=== PATIENT | male | born 1965 ===

== ENCOUNTER 2016-10-04 20:42 | Inpatient (IN) | payer OTHER ==
[2016-10-04 20:48] VITALS: BMI 29.2
[2016-10-04] MEDS ORDERED: Albuterol 0.083% Inhal Sol (2.5 mg/3 mL) UD INH PRN (21:09)
[2016-10-04] MEDS ORDERED: Aztreonam 2 Gm Inj IVPB SCH (21:15)
[2016-10-04 21:24] VITALS: RESP 20
[2016-10-04] MEDS: Aztreonam 2 GM in Sodium Chloride 0.9% 100 ML IVPB SCH (22:17)
[2016-10-05] MEDS: Oxycodone/Acetaminophen 5/325 mg Tab PO PRN ×2 (05:36→20:29)
[2016-10-05] MEDS: Aztreonam 2 GM in Sodium Chloride 0.9% 100 ML IVPB SCH ×3 (05:56→20:30)
[2016-10-05] MEDS: Enoxaparin 40 mg Syringe SC SCH (08:49)
[2016-10-05] MEDS: Lactobacillus Acidophilus 500 MU Cap PO SCH ×2 (08:49→17:47)
--- NOTE | 2016-10-05 11:50 | CP.PCM.HP ---
History of Present Illness - History of Present Illness History of Present Illness: Patient with hx of seizure, MS, debility, uti. For snf care Present on Admission - Present on Admission Any Indicators Present on Admission: Yes Decubitus Ulcer Stage: I Review of Systems - Constitutional Constitutional: As Per HPI - EENT Eyes: As Per HPI - Cardiovascular Cardiovascular: As Per HPI - Respiratory Respiratory: As Per HPI - Gastrointestinal Gastrointestinal: As Per HPI - Musculoskeletal Musculoskeletal: As Per HPI - Integumentary Integumentary: As Per HPI - Neurological Neurological: As Per HPI - Psychiatric Psychiatric: As Per HPI Past Patient History - Infectious Disease Hx of Infectious Diseases: None - Tetanus Immunizations Tetanus Immunization: Unknown - Past Medical History & Family History Past Medical History?: Yes - Past Social History Smoking Status: Never Smoked - CARDIAC Hx Peripheral Edema: Yes (bl le swelling no longer) - PULMONARY Hx Chronic Obstructive Pulmonary Disease (COPD): Yes Hx Pneumonia: Yes - NEUROLOGICAL Hx Dementia: Yes Hx Multiple Sclerosis: Yes Hx Seizures: Yes - HEENT Hx HEENT Problems: Yes (poor vision left eye) - RENAL Hx Kidney Stones: Yes - ENDOCRINE/METABOLIC Hx Endocrine Disorders: No - HEMATOLOGICAL/ONCOLOGICAL Hx Anemia: Yes - INTEGUMENTARY Hx Dermatological Problems: No - MUSCULOSKELETAL/RHEUMATOLOGICAL Hx Arthritis: Yes Hx Falls: No - GASTROINTESTINAL Hx Gastrointestinal Disorders: Yes (constipation) - GENITOURINARY/GYNECOLOGICAL Hx Genitourinary Disorders: Yes (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) Hx Incontinence: Yes Hx Prostate Problems: Yes Hx Urinary Tract Infection: Yes - PSYCHIATRIC Hx Anxiety: Yes Hx Depression: Yes Hx Substance Use: No - SURGICAL HISTORY Hx Surgeries: Yes Other/Comment: cysto with removal of stent 05/19/16 - ANESTHESIA Hx Anesthesia: Yes Hx Anesthesia Reactions: No Hx Malignant Hyperthermia: No Meds Allergies/Adverse Reactions: Allergies Allergy/AdvReac Type Severity Reaction Status Date / Time cefazolin AdvReac RASH, Verified 10/01/16 18:21 ITCHINESS Physical Exam - Constitutional Appears: Confused, Chronically Ill - Head Exam Head Exam: ATRAUMATIC, NORMAL INSPECTION - Eye Exam Eye Exam: Normal appearance - Neck Exam Neck exam: Positive for: Full Rom - Cardiovascular Exam Cardiovascular Exam: REGULAR RHYTHM, +S1, +S2 - GI/Abdominal Exam GI & Abdominal Exam: Normal Bowel Sounds - Extremities Exam Extremities exam: Positive for: normal inspection - Neurological Exam Neurological exam: Alert, Oriented x3 Additional comments: No new deficit Results - Vital Signs Recent Vital Signs: Last Vital Signs Temp 97.9 F 10/05/16 09:03 Pulse 73 10/05/16 09:03 Resp 20 10/05/16 09:03 BP 108/65 10/05/16 09:03 Pulse Ox 96 10/05/16 09:03 Assessment & Plan (1) Severe back pain Status: Chronic Priority: High (2) Anxiety Status: Chronic Priority: Medium (3) Seizure disorder Status: Acute Priority: Medium (4) Multiple sclerosis, primary progressive Status: Chronic (5) UTI (lower urinary tract infection) Status: Acute (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
[2016-10-05] MEDS ORDERED: Magnesium Hydroxide Susp 30 ml UD PO ONE (17:00)
[2016-10-06] MEDS: Aztreonam 2 GM in Sodium Chloride 0.9% 100 ML IVPB SCH ×3 (05:22→20:33)
[2016-10-06 07:43] LABS: HEMATOCRIT 37.8 % (35.0-51.0); MEAN CORPUSCULAR HEMOGLOBIN 26.3 pg (27.0-31.0); MEAN CORPUSCULAR HGB CONC 31.7 g/dL (33.0-37.0); RED CELL DISTRIBUTION WIDTH 18.4 % (11.5-14.5); WHITE BLOOD COUNT 11.4 K/uL (4.8-10.8)
[2016-10-06 08:03] LABS: BLOOD UREA NITROGEN 18 mg/dl (9-20); CALCIUM 9.4 mg/dL (8.4-10.2); CARBON DIOXIDE 27 mmol/L (22-30); CHLORIDE 104 mmol/L (98-107); GFR AFRICAN-AMERICAN > 60; GLUCOSE,RANDOM 81 mg/dL (75-110); POTASSIUM 4.3 MMOL/L (3.6-5.0); SODIUM 142 mmol/l (132-148)
[2016-10-06] MEDS: Lactobacillus Acidophilus 500 MU Cap PO SCH ×2 (08:53→17:30)
[2016-10-06] MEDS: Enoxaparin 40 mg Syringe SC SCH (08:55)
--- NOTE | 2016-10-06 12:47 | CP.PCM.PN ---
Subjective - Date & Time of Evaluation Date of Evaluation: 10/06/16 Time of Evaluation: 12:47 - Subjective Subjective: Comfortable not in distress Objective - Vital Signs/Intake and Output Vital Signs (last 24 hours): Temp Pulse Resp BP Pulse Ox 98.2 F 91 H 20 105/74 93 L 10/06/16 08:33 10/06/16 08:33 10/06/16 08:33 10/06/16 08:33 10/06/16 08:33 - Medications Medications: Current Medications Albuterol Sulfate (Albuterol 0.083% Inhal Jennifer (2.5 Mg/3 Ml) Ud) 2.5 mg INH RQ6 PRN PRN Reason: Shortness of Breath Baclofen (Lioresal) 20 mg PO TID [facility] Last Admin: 10/06/16 08:54 Dose: 20 mg Enoxaparin Sodium (Lovenox) 40 mg SC DAILY [facility] PRN Reason: Protocol Last Admin: 10/06/16 08:55 Dose: 40 mg Famotidine (Pepcid) 20 mg PO BID [facility] Last Admin: 10/06/16 08:55 Dose: 20 mg Fentanyl (Duragesic) 1 patch TD Q72 [facility] PRN Reason: Protocol Last Admin: 10/04/16 21:55 Dose: 1 patch Home Med (Dimethyl Fumarate [Tecfidera]) 240 mg PO BID [facility] Last Admin: 10/06/16 08:53 Dose: 240 mg Aztreonam 2 gm/ Sodium (Chloride) 100 mls @ 100 mls/hr IVPB Q8H [facility] Last Admin: 10/06/16 05:22 Dose: 100 mls/hr Lactobacillus Acidophilus (Bacid Acidophilus) 1 cap PO BID [facility] Last Admin: 10/06/16 08:53 Dose: 1 cap Lamotrigine (Lamictal) 200 mg PO BID [facility] Last Admin: 10/06/16 08:54 Dose: 200 mg Levetiracetam (Keppra) 1,000 mg PO TID [facility] Last Admin: 10/06/16 08:54 Dose: 1,000 mg Oxycodone/Acetaminophen (Percocet 5/325 Mg Tab) 1 tab PO Q6 PRN PRN Reason: Pain, Mild (1-3) Stop: 10/07/16 21:10 Last Admin: 10/05/16 20:29 Dose: 1 tab Tamsulosin HCl (Flomax) 0.4 mg PO DAILY [facility] Last Admin: 10/06/16 08:53 Dose: 0.4 mg - Labs Labs: 10/06/16 07:27 10/06/16 07:27 - Constitutional Appears: Chronically Ill - Head Exam Head Exam: ATRAUMATIC, NORMAL INSPECTION, NORMOCEPHALIC - Eye Exam Eye Exam: Normal appearance - Neck Exam Neck Exam: Full ROM - Cardiovascular Exam Cardiovascular Exam: REGULAR RHYTHM, +S1, +S2 - Neurological Exam Neurological Exam: Alert, Awake Additional comments: No new deficit. 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
[2016-10-06] MEDS: Oxycodone/Acetaminophen 5/325 mg Tab PO PRN (13:24)
--- NOTE | 2016-10-06 16:56 | CP.PCM.CON ---
History of Present Illness - History of Present Illness History of Present Illness: 51 year old male patient with PMHx of seizure, MS, UTI was seen at bedside this afternoon concerning dystrophic, elongated, mycotic toenails x10. Patient states that elongated nails bother him when he walks, generating pain. Patient states that the toenails are very brittle and bleeds when damaged. Patient denies of any other pedal problems. Patient denies of any N/V/F/C or SOB Past Patient History - Infectious Disease Hx of Infectious Diseases: None - Tetanus Immunizations Tetanus Immunization: Unknown - Past Medical History & Family History Past Medical History?: Yes - Past Social History Smoking Status: Never Smoked - CARDIAC Hx Peripheral Edema: Yes (bl le swelling no longer) - PULMONARY Hx Chronic Obstructive Pulmonary Disease (COPD): Yes Hx Pneumonia: Yes - NEUROLOGICAL Hx Dementia: Yes Hx Multiple Sclerosis: Yes Hx Seizures: Yes - HEENT Hx HEENT Problems: Yes (poor vision left eye) - RENAL Hx Kidney Stones: Yes - ENDOCRINE/METABOLIC Hx Endocrine Disorders: No - HEMATOLOGICAL/ONCOLOGICAL Hx Anemia: Yes - INTEGUMENTARY Hx Dermatological Problems: No - MUSCULOSKELETAL/RHEUMATOLOGICAL Hx Arthritis: Yes Hx Falls: No - GASTROINTESTINAL Hx Gastrointestinal Disorders: Yes (constipation) - GENITOURINARY/GYNECOLOGICAL Hx Genitourinary Disorders: Yes (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) Hx Incontinence: Yes Hx Prostate Problems: Yes Hx Urinary Tract Infection: Yes - PSYCHIATRIC Hx Anxiety: Yes Hx Depression: Yes Hx Substance Use: No - SURGICAL HISTORY Hx Surgeries: Yes Other/Comment: cysto with removal of stent 05/19/16 - ANESTHESIA Hx Anesthesia: Yes Hx Anesthesia Reactions: No Hx Malignant Hyperthermia: No Meds Allergies/Adverse Reactions: Allergies Allergy/AdvReac Type Severity Reaction Status Date / Time cefazolin AdvReac RASH, Verified 10/01/16 18:21 ITCHINESS - Medications Medications: Current Medications Albuterol Sulfate (Albuterol 0.083% Inhal Jennifer (2.5 Mg/3 Ml) Ud) 2.5 mg INH RQ6 PRN PRN Reason: Shortness of Breath Baclofen (Lioresal) 20 mg PO TID [facility] Last Admin: 10/06/16 13:19 Dose: 20 mg Enoxaparin Sodium (Lovenox) 40 mg SC DAILY [facility] PRN Reason: Protocol Last Admin: 10/06/16 08:55 Dose: 40 mg Famotidine (Pepcid) 20 mg PO BID [facility] Last Admin: 10/06/16 08:55 Dose: 20 mg Fentanyl (Duragesic) 1 patch TD Q72 [facility] PRN Reason: Protocol Last Admin: 10/04/16 21:55 Dose: 1 patch Home Med (Dimethyl Fumarate [Tecfidera]) 240 mg PO BID [facility] Last Admin: 10/06/16 08:53 Dose: 240 mg Aztreonam 2 gm/ Sodium (Chloride) 100 mls @ 100 mls/hr IVPB Q8H [facility] Last Admin: 10/06/16 13:19 Dose: 100 mls/hr Lactobacillus Acidophilus (Bacid Acidophilus) 1 cap PO BID [facility] Last Admin: 10/06/16 08:53 Dose: 1 cap Lamotrigine (Lamictal) 200 mg PO BID [facility] Last Admin: 10/06/16 08:54 Dose: 200 mg Levetiracetam (Keppra) 1,000 mg PO TID [facility] Last Admin: 10/06/16 13:19 Dose: 1,000 mg Oxycodone/Acetaminophen (Percocet 5/325 Mg Tab) 1 tab PO Q6 PRN PRN Reason: Pain, Mild (1-3) Stop: 10/07/16 21:10 Last Admin: 10/06/16 13:24 Dose: 1 tab Tamsulosin HCl (Flomax) 0.4 mg PO DAILY [facility] Last Admin: 10/06/16 08:53 Dose: 0.4 mg Physical Exam - Constitutional Appears: Well, Non-toxic, No Acute Distress - Extremities Exam Additional comments: Bilateral extremity exam DERM: Dystrophic, elongated, mycotic toenails noted to all digits bilaterally. No erythema noted. No sign of acute infection is noted. No drainage, No interdigital maceration noted. No open wound noted. VASC: Non-palpable DP and PT noted b/l. [employer] less than 3 seconds to all digits noted NEURO: Protective sensation intact ORTHO: Pain on palpation to all digits bilaterally - Neurological Exam Neurological exam: Alert, Oriented x3 - Psychiatric Exam Psychiatric exam: Normal Affect, Normal Mood - Skin Skin Exam: Normal Color, Warm Results - Vital Signs Recent Vital Signs: Last Vital Signs Temp 97.9 F 10/06/16 16:17 Pulse 74 10/06/16 16:17 Resp 20 10/06/16 16:17 BP 101/50 L 10/06/16 16:17 Pulse Ox 98 10/06/16 16:17 - Labs Result Diagrams: 10/06/16 07:27 10/06/16 07:27 Labs: Laboratory Results - last 24 hr 10/06/16 07:27 WBC 11.4 H RBC 4.56 Hgb 12.0 Hct 37.8 MCV 83.0 D MCH 26.3 L MCHC 31.7 L RDW 18.4 H Plt Count 321 Sodium 142 Potassium 4.3 Chloride 104 Carbon Dioxide 27 Anion Gap 15 BUN 18 Creatinine 0.6 L Est GFR ( Amer) > 60 Est GFR (Non-Af Amer) > 60 Random Glucose 81 Calcium 9.4 Assessment & Plan - Assessment and Plan (Free Text) Assessment: 51 year old female patient presenting with dystrophic, elongated, mycotic toenails x10 Plan: Patient was seen, evaluated and treated with all questions and concerns addressed labs and vitals reviewed discussed in detail with attending Dr. Evans Elongated, dystrophic, mycotic toenails were sharply debrided with a large nail nipper up to level of normal length without any incident x10 Patient is stable from podiatry stand point Please re-consult podiatry if needed Thank you very much for the opportunity to treat this patient
[2016-10-07] MEDS: Aztreonam 2 GM in Sodium Chloride 0.9% 100 ML IVPB SCH ×3 (05:00→22:10)
[2016-10-07] MEDS: Lactobacillus Acidophilus 500 MU Cap PO SCH ×2 (11:24→18:41)
[2016-10-07] MEDS: Enoxaparin 40 mg Syringe SC SCH (11:35)
--- NOTE | 2016-10-07 12:13 | US ---
HISTORY: FLU/ABD PAIN COMPARISON: None. TECHNIQUE: Sonographic evaluation of the abdomen. FINDINGS: LIVER: Measures 18 cm. Liver is enlarged with increased echogenicity of the liver parenchyma. No mass. No intrahepatic bile duct dilatation. GALLBLADDER: Unremarkable. No gallstones. COMMON BILE DUCT: Measures 4 mm. No stones. No dilatation. PANCREAS: No gross pancreatic enlargement was seen. Pancreas has normal outline and echogenicity. Pancreatic duct is normal in size. Tail of the pancreas is obscured by bowel gas. RIGHT KIDNEY: Measures 12.6 x 5.8 x 6.4cm. Normal echogenicity. No calculus, solid mass, or hydronephrosis. Incidental note is made of a 1.6 centimeter by 1.6 centimeter hypoechoic cyst in the upper pole the right kidney. LEFT KIDNEY: Measures 13.9 x 5.9 x 5.4cm. Normal echogenicity. No calculus, mass, or hydronephrosis. SPLEEN: Top-normal in size measuring 13 centimeters. No focal splenic mass is seen. AORTA: No aneurysmal dilatation. IVC: Unremarkable. OTHER FINDINGS: None. IMPRESSION: No evidence of renal calculus or hydronephrosis. Enlarged fatty liver. Top-normal size spleen. Small right renal cysts. No gallstones.
[2016-10-07 12:30] LABS: RBC URINE 20 /hpf (0-3); URINE BACTERIA RARE (<OCC); URINE BILIRUBIN NEGATIVE (NEGATIVE); URINE BLOOD MODERATE (NEGATIVE); URINE COLOR YELLOW (YELLOW); URINE GLUCOSE (UA) NEG (Normal); URINE KETONE NEGATIVE (NEGATIVE); URINE LEUKOCYTE ESTERASE LARGE Leu/uL (Negative); URINE PROTEIN 100 mg/dL (NEGATIVE); URINE UROBILINOGEN 0.2-1.0 mg/dL (0.2-1.0); WBC URINE 193 /hpf (0-5)
--- NOTE | 2016-10-07 12:30 | US ---
PROCEDURE: Ultrasound of the Bladder HISTORY: FLU/PAIN COMPARISON: None available. TECHNIQUE: Sonographic evaluation of the bladder was performed. FINDINGS: Unremarkable without wall thickening or intraluminal debris. No calculus or gross mass lesion. No free fluid in pelvis. Prevoid Volume: cc. Post void residual: cc. IMPRESSION: Please see prior bladder ultrasound report already transcribed. .
--- NOTE | 2016-10-07 13:21 | CP.PCM.PN ---
Subjective - Date & Time of Evaluation Date of Evaluation: 10/07/16 Time of Evaluation: 13:21 - Subjective Subjective: Comfortable no new c/o Objective - Vital Signs/Intake and Output Vital Signs (last 24 hours): Temp Pulse Resp BP Pulse Ox 97.9 F 69 20 105/59 L 98 10/07/16 08:39 10/07/16 08:39 10/07/16 08:39 10/07/16 08:39 10/07/16 08:39 - Medications Medications: Current Medications Albuterol Sulfate (Albuterol 0.083% Inhal Jennifer (2.5 Mg/3 Ml) Ud) 2.5 mg INH RQ6 PRN PRN Reason: Shortness of Breath Baclofen (Lioresal) 20 mg PO TID [facility] Last Admin: 10/07/16 09:33 Dose: Not Given Enoxaparin Sodium (Lovenox) 40 mg SC DAILY [facility] PRN Reason: Protocol Last Admin: 10/07/16 11:35 Dose: 40 mg Famotidine (Pepcid) 20 mg PO BID [facility] Last Admin: 10/07/16 11:30 Dose: 20 mg Fentanyl (Duragesic) 1 patch TD Q72 [facility] PRN Reason: Protocol Last Admin: 10/07/16 11:32 Dose: 1 patch Fentanyl (Duragesic) 1 patch TD Q3D [facility] PRN Reason: Protocol Home Med (Dimethyl Fumarate [Tecfidera]) 240 mg PO BID [facility] Last Admin: 10/07/16 11:29 Dose: 240 mg Aztreonam 2 gm/ Sodium (Chloride) 100 mls @ 100 mls/hr IVPB Q8H [facility] Last Admin: 10/07/16 05:00 Dose: 100 mls/hr Lactobacillus Acidophilus (Bacid Acidophilus) 1 cap PO BID [facility] Last Admin: 10/07/16 11:24 Dose: Not Given Lamotrigine (Lamictal) 200 mg PO BID [facility] Last Admin: 10/07/16 11:30 Dose: 200 mg Levetiracetam (Keppra) 1,000 mg PO TID [facility] Last Admin: 10/07/16 11:29 Dose: 1,000 mg Oxycodone/Acetaminophen (Percocet 5/325 Mg Tab) 1 tab PO Q6 PRN PRN Reason: Pain, Mild (1-3) Stop: 10/07/16 21:10 Last Admin: 10/06/16 13:24 Dose: 1 tab Tamsulosin HCl (Flomax) 0.4 mg PO DAILY [facility] Last Admin: 10/06/16 08:53 Dose: 0.4 mg - Labs Labs: 10/06/16 07:27 10/06/16 07:27 - Constitutional Appears: Chronically Ill - Head Exam Head Exam: ATRAUMATIC, NORMAL INSPECTION, NORMOCEPHALIC - Eye Exam Eye Exam: Normal appearance - Neck Exam Neck Exam: Full ROM - Respiratory Exam Respiratory Exam: Clear to Ausculation Bilateral - Cardiovascular Exam Cardiovascular Exam: REGULAR RHYTHM, +S1, +S2 - GI/Abdominal Exam GI & Abdominal Exam: Normal Bowel Sounds - Neurological Exam Neurological Exam: Alert, Awake, Oriented x3 Additional comments: no new deficit - Psychiatric Exam Psychiatric exam: Normal Affect Assessment and Plan (1) Severe back pain Status: Chronic (2) Anxiety Status: Chronic (3) Seizure disorder Status: Acute (4) Multiple sclerosis, primary progressive Status: Chronic (5) UTI (lower urinary tract infection) Status: Acute (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
[2016-10-07] MEDS ORDERED: Enoxaparin 40 mg Syringe SC SCH (13:30)
[2016-10-08] MEDS: Aztreonam 2 GM in Sodium Chloride 0.9% 100 ML IVPB SCH ×3 (04:56→21:48)
[2016-10-08] MEDS: Enoxaparin 40 mg Syringe SC SCH (08:46)
[2016-10-08] MEDS: Lactobacillus Acidophilus 500 MU Cap PO SCH ×2 (08:48→17:34)
[2016-10-08] MEDS ORDERED: Oxycodone/Acetaminophen 5/325 mg Tab PO PRN (09:16)
--- NOTE | 2016-10-08 16:34 | CP.PCM.PN ---
Subjective - Date & Time of Evaluation Date of Evaluation: 10/08/16 Time of Evaluation: 16:36 - Subjective Subjective: Comfortable Wait for urine culture Objective - Vital Signs/Intake and Output Vital Signs (last 24 hours): Temp Pulse Resp BP Pulse Ox 97.5 F L 56 L 20 110/59 L 99 10/08/16 07:57 10/08/16 07:57 10/08/16 07:57 10/08/16 07:57 10/08/16 07:57 - Medications Medications: Current Medications Albuterol Sulfate (Albuterol 0.083% Inhal Jennifer (2.5 Mg/3 Ml) Ud) 2.5 mg INH RQ6 PRN PRN Reason: Shortness of Breath Baclofen (Lioresal) 20 mg PO TID [facility] Last Admin: 10/08/16 13:04 Dose: 20 mg Enoxaparin Sodium (Lovenox) 40 mg SC DAILY [facility] PRN Reason: Protocol Last Admin: 10/08/16 08:46 Dose: 40 mg Famotidine (Pepcid) 20 mg PO BID [facility] Last Admin: 10/08/16 08:50 Dose: 20 mg Fentanyl (Duragesic) 1 patch TD Q72 [facility] PRN Reason: Protocol Last Admin: 10/07/16 11:32 Dose: 1 patch Fentanyl (Duragesic) 1 patch TD Q3D [facility] PRN Reason: Protocol Last Admin: 10/07/16 15:01 Dose: Not Given Home Med (Dimethyl Fumarate [Tecfidera]) 240 mg PO BID [facility] Last Admin: 10/08/16 08:48 Dose: 240 mg Aztreonam 2 gm/ Sodium (Chloride) 100 mls @ 100 mls/hr IVPB Q8H [facility] Last Admin: 10/08/16 13:04 Dose: 100 mls/hr Lactobacillus Acidophilus (Bacid Acidophilus) 1 cap PO BID [facility] Last Admin: 10/08/16 08:48 Dose: 1 cap Lactulose (Enulose) 20 gm PO DAILY [facility] PRN Reason: Constipation Last Admin: 10/08/16 14:13 Dose: 20 gm Lamotrigine (Lamictal) 200 mg PO BID [facility] Last Admin: 10/08/16 08:49 Dose: 200 mg Levetiracetam (Keppra) 1,000 mg PO TID [facility] Last Admin: 10/08/16 13:04 Dose: 1,000 mg Oxycodone/Acetaminophen (Percocet 5/325 Mg Tab) 1 tab PO Q6 PRN PRN Reason: Pain, severe (8-10) Stop: 10/11/16 09:17 Last Admin: 10/08/16 14:13 Dose: 1 tab Tamsulosin HCl (Flomax) 0.4 mg PO DAILY [facility] Last Admin: 10/08/16 08:49 Dose: 0.4 mg - Labs Labs: 10/06/16 07:27 10/06/16 07:27 - Constitutional Appears: Chronically Ill - Head Exam Head Exam: ATRAUMATIC, NORMAL INSPECTION, NORMOCEPHALIC - Neck Exam Neck Exam: Full ROM - Respiratory Exam Respiratory Exam: Clear to Ausculation Bilateral - Cardiovascular Exam Cardiovascular Exam: REGULAR RHYTHM, +S1, +S2 - GI/Abdominal Exam GI & Abdominal Exam: Soft, Normal Bowel Sounds - Neurological Exam Neurological Exam: Alert, Awake, CN II-XII Intact, Oriented x3 Assessment and Plan (1) Severe back pain Status: Chronic (2) Anxiety Status: Chronic (3) Seizure disorder Status: Acute (4) Multiple sclerosis, primary progressive Status: Chronic (5) UTI (lower urinary tract infection) Status: Acute (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
[2016-10-09] MEDS: Aztreonam 2 GM in Sodium Chloride 0.9% 100 ML IVPB SCH ×3 (05:09→21:34)
[2016-10-09] MEDS: Lactobacillus Acidophilus 500 MU Cap PO SCH ×2 (08:36→17:33)
[2016-10-09] MEDS: Enoxaparin 40 mg Syringe SC SCH (08:39)
--- NOTE | 2016-10-09 12:24 | CP.PCM.PN ---
Subjective - Date & Time of Evaluation Date of Evaluation: 10/09/16 Time of Evaluation: 12:24 - Subjective Subjective: Comfortable not septic. Objective - Vital Signs/Intake and Output Vital Signs (last 24 hours): Temp Pulse Resp BP Pulse Ox 96.8 F L 77 20 109/72 95 10/09/16 08:26 10/09/16 08:26 10/09/16 08:26 10/09/16 08:26 10/09/16 08:26 - Medications Medications: Current Medications Albuterol Sulfate (Albuterol 0.083% Inhal Jennifer (2.5 Mg/3 Ml) Ud) 2.5 mg INH RQ6 PRN PRN Reason: Shortness of Breath Baclofen (Lioresal) 20 mg PO TID [facility] Last Admin: 10/09/16 08:38 Dose: 20 mg Enoxaparin Sodium (Lovenox) 40 mg SC DAILY [facility] PRN Reason: Protocol Last Admin: 10/09/16 08:39 Dose: 40 mg Famotidine (Pepcid) 20 mg PO BID [facility] Last Admin: 10/09/16 08:39 Dose: 20 mg Fentanyl (Duragesic) 1 patch TD Q72 [facility] PRN Reason: Protocol Last Admin: 10/07/16 11:32 Dose: 1 patch Fentanyl (Duragesic) 1 patch TD Q3D [facility] PRN Reason: Protocol Last Admin: 10/07/16 15:01 Dose: Not Given Home Med (Dimethyl Fumarate [Tecfidera]) 240 mg PO BID [facility] Last Admin: 10/09/16 08:37 Dose: 240 mg Aztreonam 2 gm/ Sodium (Chloride) 100 mls @ 100 mls/hr IVPB Q8H [facility] Last Admin: 10/09/16 05:09 Dose: 100 mls/hr Lactobacillus Acidophilus (Bacid Acidophilus) 1 cap PO BID [facility] Last Admin: 10/09/16 08:36 Dose: 1 cap Lactulose (Enulose) 20 gm PO DAILY [facility] PRN Reason: Constipation Last Admin: 10/09/16 11:15 Dose: 20 gm Lamotrigine (Lamictal) 200 mg PO BID [facility] Last Admin: 10/09/16 08:38 Dose: 200 mg Levetiracetam (Keppra) 1,000 mg PO TID [facility] Last Admin: 10/09/16 08:37 Dose: 1,000 mg Oxycodone/Acetaminophen (Percocet 5/325 Mg Tab) 1 tab PO Q6 PRN PRN Reason: Pain, severe (8-10) Stop: 10/11/16 09:17 Last Admin: 10/08/16 14:13 Dose: 1 tab Tamsulosin HCl (Flomax) 0.4 mg PO DAILY [facility] Last Admin: 10/09/16 08:37 Dose: 0.4 mg - Labs Labs: 10/06/16 07:27 10/06/16 07:27 - Constitutional Appears: Non-toxic, Chronically Ill - Head Exam Head Exam: ATRAUMATIC, NORMAL INSPECTION, NORMOCEPHALIC - Eye Exam Eye Exam: Normal appearance - ENT Exam ENT Exam: Mucous Membranes Moist - Neck Exam Neck Exam: Full ROM - Respiratory Exam Respiratory Exam: Clear to Ausculation Bilateral - Cardiovascular Exam Cardiovascular Exam: REGULAR RHYTHM, +S1, +S2 - GI/Abdominal Exam GI & Abdominal Exam: Normal Bowel Sounds - Neurological Exam Neurological Exam: Alert, Awake, Oriented x3 Additional comments: No new deficit. 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 Will follow ID consult
[2016-10-10] MEDS: Enoxaparin 40 mg Syringe SC SCH (08:57)
[2016-10-10] MEDS: Lactobacillus Acidophilus 500 MU Cap PO SCH ×2 (08:59→16:33)
--- NOTE | 2016-10-10 10:57 | CP.PCM.CON ---
History of Present Illness - History of Present Illness History of Present Illness: s/p uti- recurrent neurogenic bladder in setting of MS cont IV rx possible PO conversion blood c/s neg Review of Systems - Constitutional Constitutional: As Per HPI - EENT Eyes: absent: As Per HPI, Blind Spots, Blurred Vision, Change in Vision, Decreased Night Vision, Diplopia, Discharge, Dry Eye, Exophthalmos, Floaters, Irritation, Itchy Eyes, Loss of Peripheral Vision, Pain, Photophobia, Requires Corrective Lenses, Sees Flashes, Spots in Vision, Tunnel Vision, Other Visual Disturbances, Loss of Vision, Other Ears: absent: As Per HPI, Decreased Hearing, Ear Discharge, Ear Pain, Tinnitus, Abnormal Hearing, Disequilibrium, Dizziness, Other Nose/Mouth/Throat: absent: As Per HPI, Epistaxis, Nasal Congestion, Nasal Discharge, Nasal Obstruction, Nasal Trauma, Nose Pain, Post Nasal Drip, Sinus Pain, Sinus Pressure, Bleeding Gums, Change in Voice, Dental Pain, Dry Mouth, Dysphagia, Halitosis, Hoarsness, Lip Swelling, Mouth Lesions, Mouth Pain, Odynophagia, Sore Throat, Throat Swelling, Tongue Swelling, Facial Pain, Neck Pain, Neck Mass, Other - Cardiovascular Cardiovascular: absent: As Per HPI, Acrocyanosis, Chest Pain, Chest Pain at Rest , Chest Pain with Activity, Claudication, Diaphoresis, Dyspnea, Dyspnea on Exertion, Edema, Irregular Heart Rhythm, Pain Radiating to Arm/Neck/Jaw, Leg Edema, Leg Ulcers, Lightheadedness, Orthopnea, Palpitations, Paroxysmal Nocturnal Dyspnea, Pedal Edema, Radiating Pain, Rapid Heart Rate, Slow Heart Rate, Syncope, Other - Respiratory Respiratory: absent: As Per HPI, Cough, Dyspnea, Hemoptysis, Dyspnea on Exertion , Wheezing, Snoring, Stridor, Pain on Inspiration, Chest Congestion, Excessive Mucous Production, Change in Mucous Color, Pain with Coughing, Other - Gastrointestinal Gastrointestinal: absent: As Per HPI, Abdominal Pain, Belching, Bloating, Change in Bowel Habits, Change in Stool Character, Coffee Ground Emesis, Constipation, Cramping, Diarrhea, Dyspepsia, Dysphagia, Early Satiety, Excessive Flatus, Fecal Incontinence, Heartburn, Hematemesis, Hematochezia, Loose Stools, Melena, Nausea, Odynophagia, Temesmus, Vomiting, Other - Genitourinary Genitourinary: As Per HPI - Musculoskeletal Musculoskeletal: absent: As Per HPI, Abnormal Gait, Arthralgias, Atrophy, Back Pain, Deformity, Joint Swelling, Limited Range of Motion, Loss of Height, Muscle Cramps, Muscle Weakness, Myalgias, Neck Pain, Numbness, Radiating Pain into Limb, Stiffness, Tingling, Other - Integumentary Integumentary: absent: As Per HPI, Acne, Alopecia, Bleeding Lesions, Change in Hair, Change in Nails, Change in Pigmentation, Changing Lesions, Dry Skin, Erythema, Furuncle, Hirsutism, Lesions, New Lesions, Non-Healing Lesions, Photosensitivity, Pruritus, Rash, Skin Pain, Skin Ulcer, Sores, Striae, Swelling , Unusual Bruising, Wounds, Jaundice, Other - Neurological Neurological: As Per HPI - Psychiatric Psychiatric: absent: As Per HPI, Abnormal Sleep Pattern, Anhedonia, Anxiety, Auditory Hallucinations, Behavioral Changes, Change in Appetite, Change in Libido, Confusion, Depression, Difficulty Concentrating, Hallucinations, Homicidal Ideation, Hopelessness, Irritability, Memory Loss, Mood Swings, Panic Attacks, Paranoia, Suicidal Ideation, Visual Hallucinations, Tactile Hallucinations, Other - Endocrine Endocrine: absent: As Per HPI, Change in Body Appearance, Change in Libido, Cold Intolorance, Deepening of Voice, Excessive Sweating, Fatigue, Flushing, Heat Intolorance, Increase in Ring/Shoe/Hat Size, Palpitations, Polydipsia, Polyphagia, Polyuria, Other - Hematologic/Lymphatic Hematologic: absent: As Per HPI, Easy Bleeding, Easy Bruising, Lymphadenopathy, Other Past Patient History - Infectious Disease Hx of Infectious Diseases: None - Tetanus Immunizations Tetanus Immunization: Unknown - Past Medical History & Family History Past Medical History?: Yes - Past Social History Smoking Status: Never Smoked - CARDIAC Hx Peripheral Edema: Yes (bl le swelling no longer) - PULMONARY Hx Chronic Obstructive Pulmonary Disease (COPD): Yes Hx Pneumonia: Yes - NEUROLOGICAL Hx Dementia: Yes Hx Multiple Sclerosis: Yes Hx Seizures: Yes - HEENT Hx HEENT Problems: Yes (poor vision left eye) - RENAL Hx Kidney Stones: Yes - ENDOCRINE/METABOLIC Hx Endocrine Disorders: No - HEMATOLOGICAL/ONCOLOGICAL Hx Anemia: Yes - INTEGUMENTARY Hx Dermatological Problems: No - MUSCULOSKELETAL/RHEUMATOLOGICAL Hx Arthritis: Yes Hx Falls: No - GASTROINTESTINAL Hx Gastrointestinal Disorders: Yes (constipation) - GENITOURINARY/GYNECOLOGICAL Hx Genitourinary Disorders: Yes (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) Hx Incontinence: Yes Hx Prostate Problems: Yes Hx Urinary Tract Infection: Yes - PSYCHIATRIC Hx Anxiety: Yes Hx Depression: Yes Hx Substance Use: No - SURGICAL HISTORY Hx Surgeries: Yes Other/Comment: cysto with removal of stent 05/19/16 - ANESTHESIA Hx Anesthesia: Yes Hx Anesthesia Reactions: No Hx Malignant Hyperthermia: No Meds Allergies/Adverse Reactions: Allergies Allergy/AdvReac Type Severity Reaction Status Date / Time cefazolin AdvReac RASH, Verified 10/01/16 18:21 ITCHINESS - Medications Medications: Current Medications Albuterol Sulfate (Albuterol 0.083% Inhal Jennifer (2.5 Mg/3 Ml) Ud) 2.5 mg INH RQ6 PRN PRN Reason: Shortness of Breath Baclofen (Lioresal) 20 mg PO TID [facility] Last Admin: 10/10/16 08:57 Dose: 20 mg Enoxaparin Sodium (Lovenox) 40 mg SC DAILY [facility] PRN Reason: Protocol Last Admin: 10/10/16 08:57 Dose: 40 mg Famotidine (Pepcid) 20 mg PO BID [facility] Last Admin: 10/10/16 08:57 Dose: 20 mg Fentanyl (Duragesic) 1 patch TD Q72 [facility] PRN Reason: Protocol Last Admin: 10/10/16 09:01 Dose: 1 patch Fentanyl (Duragesic) 1 patch TD Q3D [facility] PRN Reason: Protocol Last Admin: 10/07/16 15:01 Dose: Not Given Home Med (Dimethyl Fumarate [Tecfidera]) 240 mg PO BID [facility] Last Admin: 10/10/16 08:58 Dose: 240 mg Micafungin Sodium 100 mg/ (Sodium Chloride) 100 mls @ 100 mls/hr IVPB DAILY [facility] Lactobacillus Acidophilus (Bacid Acidophilus) 1 cap PO BID [facility] Last Admin: 10/10/16 08:59 Dose: 1 cap Lactulose (Enulose) 20 gm PO DAILY PRN PRN Reason: Constipation Last Admin: 10/09/16 11:15 Dose: 20 gm Lamotrigine (Lamictal) 200 mg PO BID [facility] Last Admin: 10/10/16 08:58 Dose: 200 mg Levetiracetam (Keppra) 1,000 mg PO TID [facility] Last Admin: 10/10/16 08:58 Dose: 1,000 mg Oxycodone/Acetaminophen (Percocet 5/325 Mg Tab) 1 tab PO Q6 PRN PRN Reason: Pain, severe (8-10) Stop: 10/11/16 09:17 Last Admin: 10/08/16 14:13 Dose: 1 tab Tamsulosin HCl (Flomax) 0.4 mg PO DAILY [facility] Last Admin: 10/10/16 08:58 Dose: 0.4 mg Physical Exam - Constitutional Appears: Non-toxic, Chronically Ill - Head Exam Head Exam: NORMOCEPHALIC - Eye Exam Eye Exam: PERRL. absent: Scleral icterus - ENT Exam ENT Exam: Mucous Membranes Dry - Neck Exam Neck exam: Negative for: Lymphadenopathy, Thyromegaly - Respiratory Exam Respiratory Exam: Decreased Breath Sounds, Clear to Auscultation Bilateral - Cardiovascular Exam Cardiovascular Exam: REGULAR RHYTHM, +S1, +S2 - GI/Abdominal Exam GI & Abdominal Exam: Diminished Bowel Sounds, Soft. absent: Tenderness - Rectal Exam Rectal Exam: Deferred - Exam Exam: NORMAL INSPECTION - Extremities Exam Extremities exam: Negative for: calf tenderness, pedal edema - Back Exam Back exam: absent: CVA tenderness (L), CVA tenderness (R), paraspinal tenderness - Neurological Exam Neurological exam: Alert, CN II-XII Intact, Oriented x3, Reflexes Normal - Psychiatric Exam Psychiatric exam: Normal Mood - Skin Skin Exam: Dry, Intact Results - Vital Signs Recent Vital Signs: Last Vital Signs Temp 97.0 F L 10/10/16 08:43 Pulse 77 10/10/16 08:43 Resp 20 10/10/16 08:43 BP 109/71 10/10/16 08:43 Pulse Ox 95 10/10/16 08:43 - Labs Result Diagrams: 10/06/16 07:27 10/06/16 07:27 Assessment & Plan (1) Abdominal pain Status: Acute - Assessment and Plan (Free Text) Assessment: uti resolving cont iv rx
[2016-10-10] MEDS: Micafungin 100 MG in Sodium Chloride 0.9% 100 ML IVPB SCH (12:06)
[2016-10-10 23:20] LABS: RBC URINE 315 /hpf (0-3); URINE BACTERIA OCC (<OCC); URINE BILIRUBIN NEGATIVE (NEGATIVE); URINE BLOOD LARGE (NEGATIVE); URINE COLOR AMBER (YELLOW); URINE GLUCOSE (UA) NEG (Normal); URINE KETONE NEGATIVE (NEGATIVE); URINE LEUKOCYTE ESTERASE LARGE Leu/uL (Negative); URINE PROTEIN 100 mg/dL (NEGATIVE); URINE UROBILINOGEN 0.2-1.0 mg/dL (0.2-1.0); WBC CLUMPS MANY /hpf; WBC URINE 1772 /hpf (0-5)
[2016-10-11] MEDS: Micafungin 100 MG in Sodium Chloride 0.9% 100 ML IVPB SCH (08:33)
[2016-10-11] MEDS: Lactobacillus Acidophilus 500 MU Cap PO SCH ×2 (08:34→17:32)
--- NOTE | 2016-10-11 13:15 | CP.PCM.PN ---
Subjective - Date & Time of Evaluation Date of Evaluation: 10/11/16 Time of Evaluation: 13:14 - Subjective Subjective: Comfortable in bed Objective - Vital Signs/Intake and Output Vital Signs (last 24 hours): Temp Pulse Resp BP Pulse Ox 98.2 F 85 20 102/71 96 10/11/16 08:03 10/11/16 08:03 10/11/16 08:03 10/11/16 08:03 10/11/16 08:03 - Medications Medications: Current Medications Albuterol Sulfate (Albuterol 0.083% Inhal Jennifer (2.5 Mg/3 Ml) Ud) 2.5 mg INH RQ6 PRN PRN Reason: Shortness of Breath Baclofen (Lioresal) 20 mg PO TID [facility] Last Admin: 10/11/16 12:51 Dose: 20 mg Famotidine (Pepcid) 20 mg PO BID [facility] Last Admin: 10/11/16 08:39 Dose: 20 mg Home Med (Dimethyl Fumarate [Tecfidera]) 240 mg PO BID [facility] Last Admin: 10/11/16 08:34 Dose: 240 mg Micafungin Sodium 100 mg/ (Sodium Chloride) 100 mls @ 100 mls/hr IVPB DAILY [facility] Last Admin: 10/11/16 08:33 Dose: 100 mls/hr Lactobacillus Acidophilus (Bacid Acidophilus) 1 cap PO BID [facility] Last Admin: 10/11/16 08:34 Dose: 1 cap Lactulose (Enulose) 20 gm PO DAILY PRN PRN Reason: Constipation Last Admin: 10/09/16 11:15 Dose: 20 gm Lamotrigine (Lamictal) 200 mg PO BID [facility] Last Admin: 10/11/16 08:38 Dose: 200 mg Levetiracetam (Keppra) 1,000 mg PO TID [facility] Last Admin: 10/11/16 12:51 Dose: 1,000 mg Tamsulosin HCl (Flomax) 0.4 mg PO DAILY [facility] Last Admin: 10/11/16 08:37 Dose: 0.4 mg - Labs Labs: 10/06/16 07:27 10/06/16 07:27 - Constitutional Appears: Chronically Ill - Head Exam Head Exam: ATRAUMATIC, NORMAL INSPECTION, NORMOCEPHALIC - Eye Exam Eye Exam: Normal appearance - ENT Exam ENT Exam: Mucous Membranes Moist - Neck Exam Neck Exam: Full ROM - Respiratory Exam Respiratory Exam: Clear to Ausculation Bilateral - Cardiovascular Exam Cardiovascular Exam: REGULAR RHYTHM, +S1, +S2 - GI/Abdominal Exam GI & Abdominal Exam: Normal Bowel Sounds - Neurological Exam Neurological Exam: Alert, Awake, Oriented x3 Additional comments: No new deficit. 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
[2016-10-12] MEDS: Lactobacillus Acidophilus 500 MU Cap PO SCH ×2 (09:03→17:50)
[2016-10-12] MEDS: Enoxaparin 40 mg Syringe SC SCH (09:03)
[2016-10-12] MEDS: Micafungin 100 MG in Sodium Chloride 0.9% 100 ML IVPB SCH (09:06)
[2016-10-12 09:46] LABS: HEMATOCRIT 38.5 % (35.0-51.0); MEAN CELL VOLUME 83.4 fl (80.0-94.0); MEAN CORPUSCULAR HGB CONC 32.4 g/dL (33.0-37.0); RED CELL DISTRIBUTION WIDTH 18.1 % (11.5-14.5); WHITE BLOOD COUNT 9.5 K/uL (4.8-10.8)
[2016-10-12 11:00] LABS: CHLORIDE 101 mmol/L (98-107); SODIUM 140 mmol/l (132-148)
[2016-10-12 11:03] LABS: BLOOD UREA NITROGEN 15 mg/dl (9-20); CARBON DIOXIDE 27 mmol/L (22-30); GFR AFRICAN-AMERICAN > 60; GLUCOSE,RANDOM 90 mg/dL (75-110)
[2016-10-12 11:04] LABS: CALCIUM 9.6 mg/dL (8.4-10.2)
--- NOTE | 2016-10-12 13:17 | CP.PCM.PN ---
Subjective - Date & Time of Evaluation Date of Evaluation: 10/12/16 Time of Evaluation: 13:20 - Subjective Subjective: Patient comfortable Objective - Vital Signs/Intake and Output Vital Signs (last 24 hours): Temp Pulse Resp BP Pulse Ox 97.9 F 74 20 119/67 95 10/12/16 08:19 10/12/16 08:19 10/12/16 08:19 10/12/16 08:19 10/12/16 08:19 - Medications Medications: Current Medications Baclofen (Lioresal) 20 mg PO TID [facility] Last Admin: 10/12/16 12:28 Dose: 20 mg Enoxaparin Sodium (Lovenox) 40 mg SC DAILY [facility] PRN Reason: Protocol Last Admin: 10/12/16 09:03 Dose: 40 mg Famotidine (Pepcid) 20 mg PO BID [facility] Last Admin: 10/12/16 09:04 Dose: 20 mg Home Med (Dimethyl Fumarate [Tecfidera]) 240 mg PO BID [facility] Last Admin: 10/12/16 09:03 Dose: 240 mg Micafungin Sodium 100 mg/ (Sodium Chloride) 100 mls @ 100 mls/hr IVPB DAILY [facility] Last Admin: 10/12/16 09:06 Dose: 100 mls/hr Lactobacillus Acidophilus (Bacid Acidophilus) 1 cap PO BID [facility] Last Admin: 10/12/16 09:03 Dose: 1 cap Lactulose (Enulose) 20 gm PO DAILY PRN PRN Reason: Constipation Last Admin: 10/09/16 11:15 Dose: 20 gm Lamotrigine (Lamictal) 200 mg PO BID [facility] Last Admin: 10/12/16 09:05 Dose: 200 mg Levetiracetam (Keppra) 1,000 mg PO TID [facility] Last Admin: 10/12/16 12:28 Dose: 1,000 mg Tamsulosin HCl (Flomax) 0.4 mg PO DAILY [facility] Last Admin: 10/12/16 09:04 Dose: 0.4 mg - Labs Labs: 10/12/16 09:31 10/12/16 09:31 - Constitutional Appears: Chronically Ill - Head Exam Head Exam: ATRAUMATIC, NORMAL INSPECTION, NORMOCEPHALIC - Eye Exam Eye Exam: Normal appearance - ENT Exam ENT Exam: Mucous Membranes Moist - Neck Exam Neck Exam: Full ROM, Normal Inspection - Respiratory Exam Respiratory Exam: Clear to Ausculation Bilateral - Cardiovascular Exam Cardiovascular Exam: REGULAR RHYTHM, +S1, +S2 - GI/Abdominal Exam GI & Abdominal Exam: Normal Bowel Sounds - Extremities Exam Extremities Exam: Normal Inspection - Neurological Exam Neurological Exam: Alert, Awake, Oriented x3 Additional comments: No new deficit Assessment and Plan (1) Severe back pain Status: Chronic (2) Anxiety Status: Chronic (3) Seizure disorder Status: Acute (4) Multiple sclerosis, primary progressive Status: Chronic (5) UTI (lower urinary tract infection) Status: Resolved (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
[2016-10-13 08:35] VITALS: BP 113/81; PULSE 74; TEMP 96.8; O2SAT 96
[2016-10-13] MEDS: Lactobacillus Acidophilus 500 MU Cap PO SCH (09:29)
[2016-10-13] MEDS: Micafungin 100 MG in Sodium Chloride 0.9% 100 ML IVPB SCH (09:30)
[2016-10-13] MEDS: Enoxaparin 40 mg Syringe SC SCH (09:30)
--- NOTE | 2016-10-13 11:38 | CP.PCM.DIS ---
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 Priority: Medium (7) Sepsis secondary to UTI Status: Resolved Hospital Course - Lab Results Lab Results: Micro Results 10/10/16 23:06 Urine Urine Culture - Final No Growth (<1,000 CFU/ML) 10/07/16 00:30 Urine,Catheterized Urine Culture - Final Yeast Species Most Recent Lab Values WBC 9.5 K/uL (4.8-10.8) 10/12/16 09:31 RBC 4.62 Mil/uL (4.40-5.90) 10/12/16 09:31 Hgb 12.5 g/dL (12.0-18.0) 10/12/16 09:31 Hct 38.5 % (35.0-51.0) 10/12/16 09:31 MCV 83.4 fl (80.0-94.0) 10/12/16 09:31 MCH 27.0 pg (27.0-31.0) 10/12/16 09:31 MCHC 32.4 g/dL (33.0-37.0) L 10/12/16 09:31 RDW 18.1 % (11.5-14.5) H 10/12/16 09:31 Plt Count 325 K/uL (130-400) 10/12/16 09:31 Sodium 140 mmol/l (132-148) 10/12/16 09:31 Potassium 4.0 MMOL/L (3.6-5.0) 10/12/16 09:31 Chloride 101 mmol/L (98-107) 10/12/16 09:31 Carbon Dioxide 27 mmol/L (22-30) 10/12/16 09:31 Anion Gap 17 (10-20) 10/12/16 09:31 BUN 15 mg/dl (9-20) 10/12/16 09:31 Creatinine 0.6 mg/dL (0.8-1.5) L 10/12/16 09:31 Est GFR ( Amer) > 60 10/12/16 09:31 Est GFR (Non-Af Amer) > 60 10/12/16 09:31 Random Glucose 90 mg/dL (75-110) 10/12/16 09:31 Calcium 9.6 mg/dL (8.4-10.2) 10/12/16 09:31 Urine Color [place] (YELLOW) 10/10/16 23:06 Urine Clarity Cloudy (Clear) 10/10/16 23:06 Urine pH 5.0 (5.0-8.0) 10/10/16 23:06 Ur Specific [place] 1.024 (1.003-1.030) 10/10/16 23:06 Urine Protein 100 mg/dL (NEGATIVE) 10/10/16 23:06 Urine Glucose (UA) Neg mg/dL (Normal) 10/10/16 23:06 Urine Ketones Negative mg/dL (NEGATIVE) 10/10/16 23:06 Urine Blood Large (NEGATIVE) 10/10/16 23:06 Urine Nitrate Negative (NEGATIVE) 10/10/16 23:06 Urine Bilirubin Negative (NEGATIVE) 10/10/16 23:06 Urine Urobilinogen 0.2-1.0 mg/dL (0.2-1.0) 10/10/16 23:06 Ur Leukocyte Esterase Large [place]/uL (Negative) 10/10/16 23:06 Urine RBC (Auto) 315 /hpf (0-3) H 10/10/16 23:06 Urine WBC Clumps (Auto) Many /hpf (NONE) H 10/10/16 23:06 Urine Microscopic WBC 1772 /hpf (0-5) H 10/10/16 23:06 Ur Squamous Epith Cells < 1 /hpf (0-5) 10/06/16 11:23 Urine Bacteria Occ (<OCC) H 10/10/16 23:06 Urine Yeast (Budding) Few /hpf (NEGATIVE) H 10/10/16 23:06 - Hospital Course Hospital Course: Patient well responded to antibx rx and PT DC home on home care Discharge Exam - Head Exam Head Exam: ATRAUMATIC, NORMAL INSPECTION, NORMOCEPHALIC - Eye Exam Eye Exam: Normal appearance - Respiratory Exam Respiratory Exam: Clear to PA & Lateral - Cardiovascular Exam Cardiovascular Exam: REGULAR RHYTHM, +S1, +S2 - GI/Abdominal Exam GI & Abdominal Exam: Normal Bowel Sounds - Neurological Exam Neurological exam: Alert, CN II-XII Intact, Oriented x3 Additional comments: No new deficit. - Skin Skin Exam: Normal Color Discharge Plan - Follow Up Plan Condition: GOOD Disposition: HOME/ ROUTINE
== END 2016-10-13 13:20 | disposition home health service (06) | DRG 690 ==
LOC: H.TCU 20:49 → UNDOADMIN 21:02 → H.TCU 10-07 23:39
PROVIDERS: ADMIT Internal Medicine; ATTEND Internal Medicine
PROC: F07L6ZZ Therapeutic Exercise Treatment of Musculoskeletal System - Lower Back / Lower Extremity (ICD-10-PCS; 2016-10-05)
PROC: 0HBRXZZ Excision of Toe Nail, External Approach (ICD-10-PCS; principal; 2016-10-06)
PROC: F08Z4FZ Home Management Treatment using Assistive, Adaptive, Supportive or Protective Equipment (ICD-10-PCS; 2016-10-06)
DX: N39.0 Urinary tract infection, site not specified (principal); L89.151 Pressure ulcer of sacral region, stage 1; G35 Multiple sclerosis; F03.90 Unspecified dementia, unspecified severity, without behavioral disturbance, psychotic disturbance, mood disturbance, and anxiety; N31.9 Neuromuscular dysfunction of bladder, unspecified; G40.909 Epilepsy, unspecified, not intractable, without status epilepticus; F41.9 Anxiety disorder, unspecified; M54.9 Dorsalgia, unspecified; L60.8 Other nail disorders; Z87.440 Personal history of urinary (tract) infections; J44.9 Chronic obstructive pulmonary disease, unspecified; H54.7 Unspecified visual loss; Z87.442 Personal history of urinary calculi

== ENCOUNTER 2017-01-05 15:59 | Inpatient (IN) | payer OTHER ==
[2017-01-05 16:04] VITALS: BMI 29.2
[2017-01-05] MEDS ORDERED: Oxycodone/Acetaminophen 5/325 mg Tab PO PRN (16:10)
[2017-01-05] MEDS ORDERED: Albuterol 0.083% Inhal Sol (2.5 mg/3 mL) UD INH PRN (16:10)
[2017-01-05 16:29] VITALS: RESP 20
[2017-01-05] MEDS ORDERED: LAMOTRIGINE 200 MG PO SCH (17:00)
[2017-01-05] MEDS: Lactobacillus Acidophilus 500 MU Cap PO SCH (17:10)
[2017-01-05 18:19] LABS: BLOOD UREA NITROGEN 7 mg/dl (9-20); CALCIUM 9.3 mg/dL (8.4-10.2); CARBON DIOXIDE 25 mmol/L (22-30); CHLORIDE 107 mmol/L (98-107); GFR AFRICAN-AMERICAN > 60; GLUCOSE,RANDOM 119 mg/dL (75-110); POTASSIUM 3.7 MMOL/L (3.6-5.0); SODIUM 143 mmol/l (132-148)
[2017-01-05] MEDS: DIMETHYL FUMARATE 240 MG PO SCH (18:57)
[2017-01-06] MEDS ORDERED: DEXTROSE IVPB SCH (09:00)
[2017-01-06] MEDS ORDERED: VANCOMYCIN IVPB SCH (09:00)
--- NOTE | 2017-01-06 09:22 | CP.PCM.HP ---
History of Present Illness - History of Present Illness History of Present Illness: 51 yo male with severe past medical hx of Anemia, Anxiety, Arthritis, COPD, Dementia, Depression, Deep Vein Thrombosis, Kidney Stones, Multiple Sclerosis, Peripheral Edema (bl le swelling no longer), Pneumonia, Pulmonary Embolism (h/o dvt), Chronic Kidney Disease, Seizures, several post ictal sedation with ventilator support. Several episode of sepsis secondary to uti. Presented in ER with agitation and fever. In ER he presented in lactic acidosis with leukocytosis, tachycardia and sign of sepsis. Now for antibx therapy. Present on Admission - Present on Admission Any Indicators Present on Admission: No Review of Systems - Constitutional Constitutional: As Per HPI - EENT Eyes: As Per HPI - Musculoskeletal Musculoskeletal: As Per HPI - Integumentary Integumentary: As Per HPI - Neurological Neurological: As Per HPI - Psychiatric Psychiatric: As Per HPI - Endocrine Endocrine: As Per HPI Past Patient History - Infectious Disease Hx of Infectious Diseases: None - Tetanus Immunizations Tetanus Immunization: Unknown - Past Medical History & Family History Past Medical History?: Yes - Past Social History Smoking Status: Former Smoker - CARDIAC Hx Hypercholesterolemia: Yes Hx Hypertension: Yes Hx Peripheral Edema: Yes (bl le swelling no longer) - PULMONARY Hx Chronic Obstructive Pulmonary Disease (COPD): Yes - NEUROLOGICAL Hx Dementia: Yes Hx Multiple Sclerosis: Yes Hx Seizures: Yes - HEENT Hx HEENT Problems: Yes (poor vision left eye) - RENAL Hx Chronic Kidney Disease: Yes Hx Kidney Stones: Yes Other/Comment: CKD - ENDOCRINE/METABOLIC Hx Endocrine Disorders: No - HEMATOLOGICAL/ONCOLOGICAL Hx Anemia: Yes - INTEGUMENTARY Hx Dermatological Problems: No - MUSCULOSKELETAL/RHEUMATOLOGICAL Hx Arthritis: Yes Hx Falls: No Other/Comment: advanced MS - GASTROINTESTINAL Hx Gastrointestinal Disorders: Yes (constipation) - GENITOURINARY/GYNECOLOGICAL Hx Genitourinary Disorders: Yes (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) Hx Incontinence: Yes Hx Prostate Problems: Yes Hx Urinary Tract Infection: Yes - PSYCHIATRIC Hx Anxiety: Yes Hx Depression: Yes Hx Substance Use: No - SURGICAL HISTORY Hx Surgeries: Yes Other/Comment: cysto with removal of stent 05/19/16 - ANESTHESIA Hx Anesthesia: Yes Hx Anesthesia Reactions: No Hx Malignant Hyperthermia: No Meds Allergies/Adverse Reactions: Allergies Allergy/AdvReac Type Severity Reaction Status Date / Time cefazolin AdvReac RASH, Verified 01/05/17 16:03 ITCHINESS Physical Exam - Constitutional Appears: Chronically Ill - Head Exam Head Exam: ATRAUMATIC, NORMAL INSPECTION, NORMOCEPHALIC - Eye Exam Eye Exam: Normal appearance - ENT Exam ENT Exam: Mucous Membranes Moist - Neck Exam Neck exam: Positive for: Normal Inspection - Respiratory Exam Respiratory Exam: Clear to Auscultation Bilateral - Cardiovascular Exam Cardiovascular Exam: REGULAR RHYTHM, +S1, +S2 - GI/Abdominal Exam GI & Abdominal Exam: Normal Bowel Sounds - Neurological Exam Neurological exam: Alert, CN II-XII Intact - Psychiatric Exam Psychiatric exam: Normal Mood Results - Vital Signs Recent Vital Signs: Last Vital Signs Temp 97.9 F 01/06/17 08:43 Pulse 81 01/06/17 08:43 Resp 20 01/06/17 08:43 BP 112/46 L 01/06/17 08:43 Pulse Ox 98 01/06/17 08:43 - Labs Result Diagrams: 01/05/17 18:06 Labs: Laboratory Results - last 24 hr 01/05/17 18:06 Sodium 143 Potassium 3.7 Chloride 107 Carbon Dioxide 25 Anion Gap 15 BUN 7 L Creatinine 0.6 L Est GFR ( Amer) > 60 Est GFR (Non-Af Amer) > 60 Random Glucose 119 H Calcium 9.3 Assessment & Plan (1) Hypopotassemia Status: Acute (2) Leukocytosis Status: Acute (3) Sepsis Status: Acute (4) UTI (urinary tract infection) Status: Acute (5) Chronic pain disorder Status: Chronic (6) Multiple sclerosis Status: Chronic (7) Seizure Status: Chronic Priority: Low - Assessment and Plan (Free Text) Plan: Continue present rx
[2017-01-06] MEDS: Lactobacillus Acidophilus 500 MU Cap PO SCH ×2 (09:45→18:31)
[2017-01-06] MEDS: DIMETHYL FUMARATE 240 MG PO SCH ×2 (09:46→17:22)
[2017-01-06] MEDS: Enoxaparin 40 mg Syringe SC SCH (09:49)
[2017-01-06] MEDS: Mycolog II CREAM TOP SCH (17:21)
[2017-01-07] MEDS: DIMETHYL FUMARATE 240 MG PO SCH ×2 (10:06→17:23)
[2017-01-07] MEDS: Lactobacillus Acidophilus 500 MU Cap PO SCH ×2 (10:06→17:22)
[2017-01-07] MEDS: Mycolog II CREAM TOP SCH ×3 (10:08→17:24)
[2017-01-07] MEDS: Enoxaparin 40 mg Syringe SC SCH (10:08)
--- NOTE | 2017-01-07 13:45 | CP.PCM.CON ---
History of Present Illness - History of Present Illness History of Present Illness: 51 yo male with past medical hx of Anemia, Anxiety, Arthritis, COPD, Dementia, Depression, Deep Vein Thrombosis, Kidney Stones, Multiple Sclerosis, Pneumonia, Pulmonary Embolism , Chronic Kidney Disease, Seizures, several post ictal sedation with ventilator support. Several episode of sepsis secondary to uti. Presented in ER with agitation and fever. In ER he presented in lactic acidosis with leukocytosis, tachycardia and sign of sepsis. Now for antibx therapy. transferred to TCU for cont of care IV acess lost will give PO rx pending repeat cultures Review of Systems - Review of Systems Systems not reviewed;Unavailable: Altered Mental Status - Constitutional Constitutional: As Per HPI, Anorexia, Fever - EENT Eyes: absent: As Per HPI, Blind Spots, Blurred Vision, Change in Vision, Decreased Night Vision, Diplopia, Discharge, Dry Eye, Exophthalmos, Floaters, Irritation, Itchy Eyes, Loss of Peripheral Vision, Pain, Photophobia, Requires Corrective Lenses, Sees Flashes, Spots in Vision, Tunnel Vision, Other Visual Disturbances, Loss of Vision, Other Ears: absent: As Per HPI, Decreased Hearing, Ear Discharge, Ear Pain, Tinnitus, Abnormal Hearing, Disequilibrium, Dizziness, Other Nose/Mouth/Throat: absent: As Per HPI, Epistaxis, Nasal Congestion, Nasal Discharge, Nasal Obstruction, Nasal Trauma, Nose Pain, Post Nasal Drip, Sinus Pain, Sinus Pressure, Bleeding Gums, Change in Voice, Dental Pain, Dry Mouth, Dysphagia, Halitosis, Hoarsness, Lip Swelling, Mouth Lesions, Mouth Pain, Odynophagia, Sore Throat, Throat Swelling, Tongue Swelling, Facial Pain, Neck Pain, Neck Mass, Other - Cardiovascular Cardiovascular: absent: As Per HPI, Acrocyanosis, Chest Pain, Chest Pain at Rest , Chest Pain with Activity, Claudication, Diaphoresis, Dyspnea, Dyspnea on Exertion, Edema, Irregular Heart Rhythm, Pain Radiating to Arm/Neck/Jaw, Leg Edema, Leg Ulcers, Lightheadedness, Orthopnea, Palpitations, Paroxysmal Nocturnal Dyspnea, Pedal Edema, Radiating Pain, Rapid Heart Rate, Slow Heart Rate, Syncope, Other - Respiratory Respiratory: absent: As Per HPI, Cough, Dyspnea, Hemoptysis, Dyspnea on Exertion , Wheezing, Snoring, Stridor, Pain on Inspiration, Chest Congestion, Excessive Mucous Production, Change in Mucous Color, Pain with Coughing, Other - Gastrointestinal Gastrointestinal: absent: As Per HPI, Abdominal Pain, Belching, Bloating, Change in Bowel Habits, Change in Stool Character, Coffee Ground Emesis, Constipation, Cramping, Diarrhea, Dyspepsia, Dysphagia, Early Satiety, Excessive Flatus, Fecal Incontinence, Heartburn, Hematemesis, Hematochezia, Loose Stools, Melena, Nausea, Odynophagia, Temesmus, Vomiting, Other - Genitourinary Genitourinary: As Per HPI - Musculoskeletal Musculoskeletal: absent: As Per HPI, Abnormal Gait, Arthralgias, Atrophy, Back Pain, Deformity, Joint Swelling, Limited Range of Motion, Loss of Height, Muscle Cramps, Muscle Weakness, Myalgias, Neck Pain, Numbness, Radiating Pain into Limb, Stiffness, Tingling, Other - Integumentary Integumentary: absent: As Per HPI, Acne, Alopecia, Bleeding Lesions, Change in Hair, Change in Nails, Change in Pigmentation, Changing Lesions, Dry Skin, Erythema, Furuncle, Hirsutism, Lesions, New Lesions, Non-Healing Lesions, Photosensitivity, Pruritus, Rash, Skin Pain, Skin Ulcer, Sores, Striae, Swelling , Unusual Bruising, Wounds, Jaundice, Other - Neurological Neurological: As Per HPI - Psychiatric Psychiatric: absent: As Per HPI, Abnormal Sleep Pattern, Anhedonia, Anxiety, Auditory Hallucinations, Behavioral Changes, Change in Appetite, Change in Libido, Confusion, Depression, Difficulty Concentrating, Hallucinations, Homicidal Ideation, Hopelessness, Irritability, Memory Loss, Mood Swings, Panic Attacks, Paranoia, Suicidal Ideation, Visual Hallucinations, Tactile Hallucinations, Other - Endocrine Endocrine: absent: As Per HPI, Change in Body Appearance, Change in Libido, Cold Intolorance, Deepening of Voice, Excessive Sweating, Fatigue, Flushing, Heat Intolorance, Increase in Ring/Shoe/Hat Size, Palpitations, Polydipsia, Polyphagia, Polyuria, Other - Hematologic/Lymphatic Hematologic: absent: As Per HPI, Easy Bleeding, Easy Bruising, Lymphadenopathy, Other Past Patient History - Infectious Disease Hx of Infectious Diseases: None - Tetanus Immunizations Tetanus Immunization: Unknown - Past Medical History & Family History Past Medical History?: Yes - Past Social History Smoking Status: Former Smoker - CARDIAC Hx Hypercholesterolemia: Yes Hx Hypertension: Yes Hx Peripheral Edema: Yes (bl le swelling no longer) - PULMONARY Hx Chronic Obstructive Pulmonary Disease (COPD): Yes - NEUROLOGICAL Hx Dementia: Yes Hx Multiple Sclerosis: Yes Hx Seizures: Yes - HEENT Hx HEENT Problems: Yes (poor vision left eye) - RENAL Hx Chronic Kidney Disease: Yes Hx Kidney Stones: Yes Other/Comment: CKD - ENDOCRINE/METABOLIC Hx Endocrine Disorders: No - HEMATOLOGICAL/ONCOLOGICAL Hx Anemia: Yes - INTEGUMENTARY Hx Dermatological Problems: No - MUSCULOSKELETAL/RHEUMATOLOGICAL Hx Arthritis: Yes Hx Falls: No Other/Comment: advanced MS - GASTROINTESTINAL Hx Gastrointestinal Disorders: Yes (constipation) - GENITOURINARY/GYNECOLOGICAL Hx Genitourinary Disorders: Yes (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) Hx Incontinence: Yes Hx Prostate Problems: Yes Hx Urinary Tract Infection: Yes - PSYCHIATRIC Hx Anxiety: Yes Hx Depression: Yes Hx Substance Use: No - SURGICAL HISTORY Hx Surgeries: Yes Other/Comment: cysto with removal of stent 05/19/16 - ANESTHESIA Hx Anesthesia: Yes Hx Anesthesia Reactions: No Hx Malignant Hyperthermia: No Meds Allergies/Adverse Reactions: Allergies Allergy/AdvReac Type Severity Reaction Status Date / Time cefazolin AdvReac RASH, Verified 01/05/17 16:03 ITCHINESS - Medications Medications: Current Medications Albuterol Sulfate (Albuterol 0.083% Inhal Jennifer (2.5 Mg/3 Ml) Ud) 2.5 mg INH RQ6 PRN PRN Reason: Shortness of Breath Baclofen (Lioresal) 20 mg PO TID [facility] Last Admin: 01/07/17 13:23 Dose: 20 mg Enoxaparin Sodium (Lovenox) 40 mg SC DAILY [facility] PRN Reason: Protocol Last Admin: 01/07/17 10:08 Dose: 40 mg Famotidine (Pepcid) 20 mg PO BID [facility] Last Admin: 01/07/17 10:07 Dose: 20 mg Fentanyl (Duragesic) 1 patch TD Q72 [facility] PRN Reason: Protocol Last Admin: 01/06/17 09:52 Dose: 1 patch Home Med (Dimethyl Fumarate [Tecfidera]) 240 mg PO BID [facility] Last Admin: 01/07/17 10:06 Dose: 240 mg Vancomycin HCl 1 gm/ Sodium (Chloride) 250 mls @ 125 mls/hr IVPB DAILY [facility] Last Admin: 01/07/17 10:44 Dose: 125 mls/hr Lactobacillus Acidophilus (Bacid Acidophilus) 1 cap PO BID [facility] Last Admin: 01/07/17 10:06 Dose: 1 cap Lamotrigine (Lamictal) 200 mg PO BID [facility] Last Admin: 01/07/17 10:06 Dose: 200 mg Levetiracetam (Keppra) 1,000 mg PO TID [facility] Last Admin: 01/07/17 13:23 Dose: 1,000 mg Nystatin/Triamcinolone Acetonide (Mycolog Ii) 1 applic TOP TID [facility] Last Admin: 01/07/17 13:23 Dose: 1 applic Oxycodone/Acetaminophen (Percocet 5/325 Mg Tab) 1 tab PO Q6 PRN PRN Reason: Pain, Mild (1-3) Stop: 01/08/17 16:11 Tamsulosin HCl (Flomax) 0.4 mg PO DAILY [facility] Last Admin: 01/07/17 10:08 Dose: 0.4 mg Physical Exam - Constitutional Appears: Non-toxic, Chronically Ill - Head Exam Head Exam: NORMOCEPHALIC - ENT Exam ENT Exam: Mucous Membranes Dry, Normal External Ear Exam, Normal Oropharynx - Neck Exam Neck exam: Negative for: Lymphadenopathy, Thyromegaly - Respiratory Exam Respiratory Exam: Decreased Breath Sounds, Rhonchi - Cardiovascular Exam Cardiovascular Exam: REGULAR RHYTHM - GI/Abdominal Exam GI & Abdominal Exam: Diminished Bowel Sounds, Distended, Soft. absent: Tenderness - Rectal Exam Rectal Exam: Deferred - Exam Exam: NORMAL INSPECTION - Extremities Exam Extremities exam: Positive for: pedal pulses present. Negative for: calf tenderness, pedal edema, tenderness - Back Exam Back exam: absent: CVA tenderness (L), CVA tenderness (R) - Neurological Exam Neurological exam: Alert, CN II-XII Intact, Oriented x3, Reflexes Normal - Psychiatric Exam Psychiatric exam: Normal Mood - Skin Skin Exam: Dry, Intact Results - Vital Signs Recent Vital Signs: Last Vital Signs Temp 97.9 F 01/07/17 08:53 Pulse 82 01/07/17 08:53 Resp 20 01/07/17 08:53 BP 103/69 01/07/17 08:53 Pulse Ox 95 01/07/17 08:53 - Labs Result Diagrams: 01/05/17 18:06 Assessment & Plan (1) UTI (urinary tract infection) Status: Acute (2) Multiple sclerosis exacerbation Status: Acute (3) Paraplegia Status: Chronic - Assessment and Plan (Free Text) Assessment: cont rx MS PT/OT IV antibiotics
[2017-01-07] MEDS: levoFLOXacin 500 MG TAB PO SCH (17:23)
[2017-01-07 18:14] LABS: RBC URINE 41 /hpf (0-3); URINE BACTERIA RARE (<OCC); URINE BILIRUBIN NEGATIVE (NEGATIVE); URINE BLOOD MODERATE (NEGATIVE); URINE COLOR YELLOW (YELLOW); URINE GLUCOSE (UA) NEG (Normal); URINE KETONE NEGATIVE (NEGATIVE); URINE LEUKOCYTE ESTERASE LARGE Leu/uL (Negative); URINE PROTEIN 30 mg/dL (NEGATIVE); URINE UROBILINOGEN 0.2-1.0 mg/dL (0.2-1.0); WBC URINE 104 /hpf (0-5)
[2017-01-08 08:14] VITALS: BP 117/72; PULSE 93; TEMP 97.8; O2SAT 100
[2017-01-08] MEDS: Enoxaparin 40 mg Syringe SC SCH (08:36)
[2017-01-08] MEDS: Lactobacillus Acidophilus 500 MU Cap PO SCH (08:36)
[2017-01-08] MEDS: Mycolog II CREAM TOP SCH ×2 (08:36→12:51)
[2017-01-08] MEDS: DIMETHYL FUMARATE 240 MG PO SCH (08:37)
[2017-01-08] MEDS: levoFLOXacin 500 MG TAB PO SCH (08:39)
--- NOTE | 2017-01-08 11:25 | CP.PCM.DIS ---
Provider - Provider Date of Admission: 01/05/17 16:08 Attending physician: Leo Morris MD Time Spent in preparation of Discharge (in minutes): 30 Diagnosis - Discharge Diagnosis (1) Hypopotassemia Status: Acute (2) Leukocytosis Status: Acute (3) Sepsis Status: Acute (4) UTI (urinary tract infection) Status: Acute (5) Chronic pain disorder Status: Chronic (6) Multiple sclerosis Status: Chronic (7) Seizure Status: Chronic Priority: Low Hospital Course - Lab Results Lab Results: Most Recent Lab Values Sodium 143 mmol/l (132-148) 01/05/17 18:06 Potassium 3.7 MMOL/L (3.6-5.0) 01/05/17 18:06 Chloride 107 mmol/L (98-107) 01/05/17 18:06 Carbon Dioxide 25 mmol/L (22-30) 01/05/17 18:06 Anion Gap 15 (10-20) 01/05/17 18:06 BUN 7 mg/dl (9-20) L 01/05/17 18:06 Creatinine 0.6 mg/dL (0.8-1.5) L 01/05/17 18:06 Est GFR ( Amer) > 60 01/05/17 18:06 Est GFR (Non-Af Amer) > 60 01/05/17 18:06 Random Glucose 119 mg/dL (75-110) H 01/05/17 18:06 Calcium 9.3 mg/dL (8.4-10.2) 01/05/17 18:06 Urine Color Yellow (YELLOW) 01/07/17 18:02 Urine Clarity Slighty-cloudy (Clear) 01/07/17 18:02 Urine pH 6.0 (5.0-8.0) 01/07/17 18:02 Ur Specific [place] 1.018 (1.003-1.030) 01/07/17 18:02 Urine Protein 30 mg/dL (NEGATIVE) 01/07/17 18:02 Urine Glucose (UA) Neg mg/dL (Normal) 01/07/17 18:02 Urine Ketones Negative mg/dL (NEGATIVE) 01/07/17 18:02 Urine Blood Moderate (NEGATIVE) 01/07/17 18:02 Urine Nitrate Negative (NEGATIVE) 01/07/17 18:02 Urine Bilirubin Negative (NEGATIVE) 01/07/17 18:02 Urine Urobilinogen 0.2-1.0 mg/dL (0.2-1.0) 01/07/17 18:02 Ur Leukocyte Esterase Large [place]/uL (Negative) 01/07/17 18:02 Urine RBC (Auto) 41 /hpf (0-3) H 01/07/17 18:02 Urine Microscopic WBC 104 /hpf (0-5) H 01/07/17 18:02 Ur Squamous Epith Cells < 1 /hpf (0-5) 01/07/17 18:02 Urine Bacteria Rare (<OCC) 01/07/17 18:02 - Hospital Course Hospital Course: Patient well responded to rx. As per recommendation of ID will start on PO meds. Patient can be DC home Discharge Exam - Head Exam Head Exam: NORMOCEPHALIC - Eye Exam Eye Exam: Normal appearance - Respiratory Exam Respiratory Exam: Clear to PA & Lateral - Cardiovascular Exam Cardiovascular Exam: REGULAR RHYTHM, +S1, +S2 - GI/Abdominal Exam GI & Abdominal Exam: Normal Bowel Sounds - Neurological Exam Neurological exam: Alert, CN II-XII Intact - Psychiatric Exam Psychiatric exam: Normal Affect Discharge Plan - Discharge Medications Prescriptions: Levofloxacin [Levaquin] 500 mg PO DAILY #10 tablet - Follow Up Plan Condition: GOOD Disposition: HOME/ ROUTINE
== END 2017-01-08 16:07 | disposition home or self-care (01) | DRG 872 ==
LOC: H.TCU 16:08
PROVIDERS: ADMIT Internal Medicine; ATTEND Internal Medicine
DX: A41.9 Sepsis, unspecified organism (principal); G82.20 Paraplegia, unspecified; F03.90 Unspecified dementia, unspecified severity, without behavioral disturbance, psychotic disturbance, mood disturbance, and anxiety; N39.0 Urinary tract infection, site not specified; G35 Multiple sclerosis; G89.29 Other chronic pain; I12.9 Hypertensive chronic kidney disease with stage 1 through stage 4 chronic kidney disease, or unspecified chronic kidney disease; J44.9 Chronic obstructive pulmonary disease, unspecified; N18.9 Chronic kidney disease, unspecified; Z86.711 Personal history of pulmonary embolism; Z86.718 Personal history of other venous thrombosis and embolism; F32.9 Major depressive disorder, single episode, unspecified; F41.9 Anxiety disorder, unspecified; Z87.891 Personal history of nicotine dependence; E87.6 Hypokalemia; G40.909 Epilepsy, unspecified, not intractable, without status epilepticus

== ENCOUNTER 2017-02-08 14:24 | Inpatient (IN) | payer OTHER ==
[2017-02-09 18:24] VITALS: BMI 28.5
[2017-02-09] MEDS ORDERED: Patient's Own Med (Piperacill/Tazo 2.25gm In Dex [Zosyn 2.25 Gm Iv Premix] 2.25 GM) IV SCH (22:00)
[2017-02-09] MEDS: Oxycodone/Acetaminophen 5/325 mg Tab PO PRN (22:44)
[2017-02-10 00:18] VITALS: RESP 20
[2017-02-10] MEDS: Oxycodone/Acetaminophen 5/325 mg Tab PO PRN (04:55)
[2017-02-10 07:55] LABS: HEMOGLOBIN 12.5 g/dL (12.0-18.0); MEAN CELL VOLUME 86.6 fl (80.0-94.0); MEAN CORPUSCULAR HEMOGLOBIN 28.1 pg (27.0-31.0); MEAN CORPUSCULAR HGB CONC 32.5 g/dL (33.0-37.0); RBC 4.46 Mil/uL (4.40-5.90); RED CELL DISTRIBUTION WIDTH 15.9 % (11.5-14.5)
[2017-02-10 08:04] LABS: BLOOD UREA NITROGEN 7 mg/dl (9-20); CALCIUM 9.5 mg/dL (8.4-10.2); GFR AFRICAN-AMERICAN > 60; GFR NON-AFRICAN AMERICAN > 60
--- NOTE | 2017-02-10 08:43 | CP.PCM.HP ---
History of Present Illness - History of Present Illness History of Present Illness: Patient is a 51 y/o M with hx of MS, epilepsy on keppra and lamictal, bed bound , brought in with seizure that started 30 minutes prior. Patient was given versed IM on route and ativan 2mg IV and was actively seizing on arrival to ED. He was intubated and sedated. He well responded to the rx. At present in TCU foe antibx rx. secondary to UTI and sepsis. He is comfortable. Present on Admission - Present on Admission Any Indicators Present on Admission: Yes - Notes: Notes:: bolus lesion in the rt arm. Review of Systems - Constitutional Constitutional: As Per HPI - EENT Eyes: As Per HPI - Cardiovascular Cardiovascular: As Per HPI - Respiratory Respiratory: As Per HPI - Gastrointestinal Gastrointestinal: As Per HPI - Musculoskeletal Musculoskeletal: As Per HPI - Integumentary Integumentary: As Per HPI - Neurological Neurological: As Per HPI - Psychiatric Psychiatric: As Per HPI Past Patient History - Infectious Disease Hx of Infectious Diseases: None - Tetanus Immunizations Tetanus Immunization: Unknown - Past Medical History & Family History Past Medical History?: Yes - Past Social History Smoking Status: Never Smoked - CARDIAC Hx Hypercholesterolemia: Yes Hx Hypertension: Yes - PULMONARY Hx Chronic Obstructive Pulmonary Disease (COPD): Yes - NEUROLOGICAL Hx Dementia: Yes Hx Multiple Sclerosis: Yes Hx Seizures: Yes - HEENT Hx HEENT Problems: Yes (poor vision left eye) - RENAL Hx Chronic Kidney Disease: Yes Hx Kidney Stones: Yes - ENDOCRINE/METABOLIC Hx Endocrine Disorders: No - HEMATOLOGICAL/ONCOLOGICAL Hx AIDS: No Hx Anemia: Yes Hx Human Immunodeficiency Virus (HIV): No - INTEGUMENTARY Hx Dermatological Problems: No - MUSCULOSKELETAL/RHEUMATOLOGICAL Hx Arthritis: Yes Hx Falls: No - GASTROINTESTINAL Hx Gastrointestinal Disorders: Yes (constipation) - GENITOURINARY/GYNECOLOGICAL Hx Genitourinary Disorders: Yes (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) Hx Incontinence: Yes Hx Prostate Problems: Yes Hx Urinary Tract Infection: Yes - PSYCHIATRIC Hx Substance Use: No - SURGICAL HISTORY Hx Surgeries: Yes Other/Comment: cysto with removal of stent 05/19/16 - ANESTHESIA Hx Anesthesia: Yes Hx Anesthesia Reactions: No Hx Malignant Hyperthermia: No Meds Allergies/Adverse Reactions: Allergies Allergy/AdvReac Type Severity Reaction Status Date / Time cefazolin AdvReac RASH, Verified 02/09/17 18:24 ITCHINESS Physical Exam - Constitutional Appears: Confused, Chronically Ill - Head Exam Head Exam: ATRAUMATIC, NORMAL INSPECTION, NORMOCEPHALIC - Eye Exam Eye Exam: Normal appearance - ENT Exam ENT Exam: Mucous Membranes Moist - Neck Exam Neck exam: Positive for: Normal Inspection - Respiratory Exam Respiratory Exam: Clear to Auscultation Bilateral - Cardiovascular Exam Cardiovascular Exam: REGULAR RHYTHM, +S1, +S2 - GI/Abdominal Exam GI & Abdominal Exam: Normal Bowel Sounds - Extremities Exam Additional comments: bolus lesion dry and clean - Neurological Exam Neurological exam: Alert, CN II-XII Intact - Psychiatric Exam Psychiatric exam: Anxious - Skin Skin Exam: Normal Color Results - Vital Signs Recent Vital Signs: Last Vital Signs Temp 98 F 02/09/17 23:19 Pulse 88 02/09/17 23:19 Resp 20 02/09/17 23:19 BP 106/64 02/09/17 23:19 Pulse Ox 96 02/09/17 23:19 - Labs Result Diagrams: 02/10/17 07:47 02/10/17 07:47 Labs: Laboratory Results - last 24 hr 02/09/17 02/10/17 02/10/17 07:47 07:47 07:47 WBC 11.0 H RBC 4.46 Hgb 12.5 Hct 38.6 MCV 86.6 D MCH 28.1 MCHC 32.5 L RDW 15.9 H Plt Count 322 Sodium 142 Potassium 4.2 Chloride 104 Carbon Dioxide 28 Anion Gap 15 BUN 7 L Creatinine 0.6 L Est GFR ( Amer) > 60 Est GFR (Non-Af Amer) > 60 Random Glucose 106 Calcium 9.5 Vancomycin Trough 5.7 Assessment & Plan (1) Chronic pain disorder Status: Chronic (2) DVT prophylaxis Status: Acute (3) Leukocytosis Status: Acute (4) Sepsis Status: Acute (5) Status epilepticus Status: Resolved Priority: High (6) UTI (urinary tract infection) Status: Acute (7) Anxiety Status: Chronic Priority: Medium (8) Multiple sclerosis Status: Chronic (9) Urinary retention Status: Chronic Priority: Low (10) Urolithiasis Status: Chronic - Assessment and Plan (Free Text) Plan: Continue present rx as per orders.
[2017-02-10] MEDS: Lactobacillus Acidophilus 500 MU Cap PO SCH ×2 (08:50→17:19)
[2017-02-10] MEDS: Silver Sulfadiazine 1% Cream (20 gm) TOP SCH (08:52)
[2017-02-10] MEDS: Enoxaparin 40 mg Syringe SC SCH (08:52)
[2017-02-10] MEDS ORDERED: SOD CHLORIDE IV SCH (09:00)
[2017-02-10] MEDS ORDERED: [UNRECOGNIZED DRUG - OTHER] IV SCH (09:00)
[2017-02-10] MEDS ORDERED: FLUCONAZOLE 200 MG/100 ML IV SCH (09:00)
[2017-02-10] MEDS ORDERED: VANCOMYCIN IV SCH (09:00)
[2017-02-10] MEDS ORDERED: Fluconazole IV 200mg/100 ml NS 100 ML IVPB SCH (17:00)
--- NOTE | 2017-02-11 09:17 | RAD ---
HISTORY: patient removed picc line COMPARISON: No prior. FINDINGS: LUNGS: No active pulmonary disease. PLEURA: No significant pleural effusion identified, no pneumothorax apparent. CARDIOVASCULAR: Normal. OSSEOUS STRUCTURES: No significant abnormalities. VISUALIZED UPPER ABDOMEN: Normal. OTHER FINDINGS: None. IMPRESSION: No active disease.
[2017-02-11] MEDS: Silver Sulfadiazine 1% Cream (20 gm) TOP SCH (09:41)
[2017-02-11] MEDS: Enoxaparin 40 mg Syringe SC SCH (09:41)
[2017-02-11] MEDS: Lactobacillus Acidophilus 500 MU Cap PO SCH ×2 (09:41→17:16)
--- NOTE | 2017-02-11 13:46 | CP.PCM.CON ---
History of Present Illness - History of Present Illness History of Present Illness: 51 y/o M with hx of MS, epilepsy on keppra and lamictal, bed bound, brought in with seizure that started 30 minutes prior. Patient was given versed IM on route and ativan 2mg IV and was actively seizing on arrival to ED. He was intubated and sedated. He well responded to the rx. At present in TCU foe antibx rx. secondary to UTI and sepsis. He is comfortable. recurrent UTI recent c/s + yeast Review of Systems - Review of Systems Systems not reviewed;Unavailable: Altered Mental Status All systems: reviewed and no additional remarkable complaints except - Constitutional Constitutional: Fever, Lethargy - EENT Eyes: absent: As Per HPI, Blind Spots, Blurred Vision, Change in Vision, Decreased Night Vision, Diplopia, Discharge, Dry Eye, Exophthalmos, Floaters, Irritation, Itchy Eyes, Loss of Peripheral Vision, Pain, Photophobia, Requires Corrective Lenses, Sees Flashes, Spots in Vision, Tunnel Vision, Other Visual Disturbances, Loss of Vision, Other Ears: absent: As Per HPI, Decreased Hearing, Ear Discharge, Ear Pain, Tinnitus, Abnormal Hearing, Disequilibrium, Dizziness, Other Nose/Mouth/Throat: absent: As Per HPI, Epistaxis, Nasal Congestion, Nasal Discharge, Nasal Obstruction, Nasal Trauma, Nose Pain, Post Nasal Drip, Sinus Pain, Sinus Pressure, Bleeding Gums, Change in Voice, Dental Pain, Dry Mouth, Dysphagia, Halitosis, Hoarsness, Lip Swelling, Mouth Lesions, Mouth Pain, Odynophagia, Sore Throat, Throat Swelling, Tongue Swelling, Facial Pain, Neck Pain, Neck Mass, Other - Cardiovascular Cardiovascular: absent: As Per HPI, Acrocyanosis, Chest Pain, Chest Pain at Rest , Chest Pain with Activity, Claudication, Diaphoresis, Dyspnea, Dyspnea on Exertion, Edema, Irregular Heart Rhythm, Pain Radiating to Arm/Neck/Jaw, Leg Edema, Leg Ulcers, Lightheadedness, Orthopnea, Palpitations, Paroxysmal Nocturnal Dyspnea, Pedal Edema, Radiating Pain, Rapid Heart Rate, Slow Heart Rate, Syncope, Other - Respiratory Respiratory: absent: As Per HPI, Cough, Dyspnea, Hemoptysis, Dyspnea on Exertion , Wheezing, Snoring, Stridor, Pain on Inspiration, Chest Congestion, Excessive Mucous Production, Change in Mucous Color, Pain with Coughing, Other - Gastrointestinal Gastrointestinal: absent: As Per HPI, Abdominal Pain, Belching, Bloating, Change in Bowel Habits, Change in Stool Character, Coffee Ground Emesis, Constipation, Cramping, Diarrhea, Dyspepsia, Dysphagia, Early Satiety, Excessive Flatus, Fecal Incontinence, Heartburn, Hematemesis, Hematochezia, Loose Stools, Melena, Nausea, Odynophagia, Temesmus, Vomiting, Other - Genitourinary Genitourinary: absent: As Per HPI, Change in Urinary Stream, Difficulty Urinating, Dysuria, Flank Pain, Hematuria, Pyuria, Nocturia, Urinary Incontinence, Urinary Frequency, Urinary Hesitance, Urinary Urgency, Voiding Freq/Small Amts, Freq UTI, Hx Renal/Bladder Calculi, Hx /Renal Surgery, Bladder Distension, Other - Musculoskeletal Musculoskeletal: absent: As Per HPI, Abnormal Gait, Arthralgias, Atrophy, Back Pain, Deformity, Joint Swelling, Limited Range of Motion, Loss of Height, Muscle Cramps, Muscle Weakness, Myalgias, Neck Pain, Numbness, Radiating Pain into Limb, Stiffness, Tingling, Other - Integumentary Integumentary: absent: As Per HPI, Acne, Alopecia, Bleeding Lesions, Change in Hair, Change in Nails, Change in Pigmentation, Changing Lesions, Dry Skin, Erythema, Furuncle, Hirsutism, Lesions, New Lesions, Non-Healing Lesions, Photosensitivity, Pruritus, Rash, Skin Pain, Skin Ulcer, Sores, Striae, Swelling , Unusual Bruising, Wounds, Jaundice, Other - Neurological Neurological: As Per HPI - Psychiatric Psychiatric: absent: As Per HPI, Abnormal Sleep Pattern, Anhedonia, Anxiety, Auditory Hallucinations, Behavioral Changes, Change in Appetite, Change in Libido, Confusion, Depression, Difficulty Concentrating, Hallucinations, Homicidal Ideation, Hopelessness, Irritability, Memory Loss, Mood Swings, Panic Attacks, Paranoia, Suicidal Ideation, Visual Hallucinations, Tactile Hallucinations, Other - Endocrine Endocrine: absent: As Per HPI, Change in Body Appearance, Change in Libido, Cold Intolorance, Deepening of Voice, Excessive Sweating, Fatigue, Flushing, Heat Intolorance, Increase in Ring/Shoe/Hat Size, Palpitations, Polydipsia, Polyphagia, Polyuria, Other - Hematologic/Lymphatic Hematologic: absent: As Per HPI, Easy Bleeding, Easy Bruising, Lymphadenopathy, Other Past Patient History - Infectious Disease Hx of Infectious Diseases: None - Tetanus Immunizations Tetanus Immunization: Unknown - Past Medical History & Family History Past Medical History?: Yes - Past Social History Smoking Status: Never Smoked - CARDIAC Hx Hypercholesterolemia: Yes Hx Hypertension: Yes - PULMONARY Hx Chronic Obstructive Pulmonary Disease (COPD): Yes - NEUROLOGICAL Hx Dementia: Yes Hx Multiple Sclerosis: Yes Hx Seizures: Yes - HEENT Hx HEENT Problems: Yes (poor vision left eye) - RENAL Hx Chronic Kidney Disease: Yes Hx Kidney Stones: Yes - ENDOCRINE/METABOLIC Hx Endocrine Disorders: No - HEMATOLOGICAL/ONCOLOGICAL Hx AIDS: No Hx Anemia: Yes Hx Human Immunodeficiency Virus (HIV): No - INTEGUMENTARY Hx Dermatological Problems: No - MUSCULOSKELETAL/RHEUMATOLOGICAL Hx Arthritis: Yes Hx Falls: No - GASTROINTESTINAL Hx Gastrointestinal Disorders: Yes (constipation) - GENITOURINARY/GYNECOLOGICAL Hx Genitourinary Disorders: Yes (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) Hx Incontinence: Yes Hx Prostate Problems: Yes Hx Urinary Tract Infection: Yes - PSYCHIATRIC Hx Substance Use: No - SURGICAL HISTORY Hx Surgeries: Yes Other/Comment: cysto with removal of stent 05/19/16 - ANESTHESIA Hx Anesthesia: Yes Hx Anesthesia Reactions: No Hx Malignant Hyperthermia: No Meds Allergies/Adverse Reactions: Allergies Allergy/AdvReac Type Severity Reaction Status Date / Time cefazolin AdvReac RASH, Verified 02/09/17 18:24 ITCHINESS - Medications Medications: Current Medications Baclofen (Lioresal) 20 mg PO TID [facility] Last Admin: 02/11/17 12:50 Dose: 20 mg Enoxaparin Sodium (Lovenox) 40 mg SC DAILY [facility] PRN Reason: Protocol Last Admin: 02/11/17 09:41 Dose: 40 mg Famotidine (Pepcid) 20 mg PO BID [facility] Last Admin: 02/11/17 09:47 Dose: 20 mg Fentanyl (Duragesic) 1 patch TD Q72 [facility] PRN Reason: Protocol Last Admin: 02/09/17 21:02 Dose: 1 patch Fluconazole (Diflucan) 200 mg PO DAILY [facility] Last Admin: 02/11/17 12:51 Dose: 200 mg Home Med (Dimethyl Fumarate [Tecfidera]) 240 mg PO BID [facility] Vancomycin HCl 1 gm/ Sodium (Chloride) 250 mls @ 125 mls/hr IVPB DAILY [facility] Last Admin: 02/11/17 09:47 Dose: Not Given Piperacillin Sod/Tazobactam (Sod 2.25 gm/ Sodium Chloride) 100 mls @ 100 mls/ hr IVPB 0600,1200,1800,0000 [facility] Last Admin: 02/11/17 12:47 Dose: Not Given Lactobacillus Acidophilus (Bacid Acidophilus) 1 cap PO BID [facility] Last Admin: 02/11/17 09:41 Dose: 1 cap Lamotrigine (Lamictal) 200 mg PO BID [facility] Last Admin: 02/11/17 09:41 Dose: 200 mg Levetiracetam (Keppra) 1,000 mg PO TID [facility] Last Admin: 02/11/17 12:50 Dose: 1,000 mg Oxycodone/Acetaminophen (Percocet 5/325 Mg Tab) 1 tab PO Q6 PRN PRN Reason: Pain, moderate (4-7) Stop: 02/12/17 20:23 Last Admin: 02/10/17 04:55 Dose: 1 tab Silver Sulfadiazine (Silvadene 1% 20 Gm) 1 ea TOP DAILY [facility] Last Admin: 02/11/17 09:41 Dose: 1 applic Tamsulosin HCl (Flomax) 0.4 mg PO DAILY [facility] Last Admin: 02/11/17 09:41 Dose: 0.4 mg Physical Exam - Constitutional Appears: Non-toxic, Cachectic, Chronically Ill - Head Exam Head Exam: NORMOCEPHALIC - Eye Exam Eye Exam: PERRL. absent: Scleral icterus - ENT Exam ENT Exam: Mucous Membranes Dry, Normal External Ear Exam - Neck Exam Neck exam: Negative for: Lymphadenopathy - Respiratory Exam Respiratory Exam: Decreased Breath Sounds, Rhonchi - Cardiovascular Exam Cardiovascular Exam: REGULAR RHYTHM, +S1, +S2 - GI/Abdominal Exam GI & Abdominal Exam: Diminished Bowel Sounds, Soft. absent: Tenderness - Rectal Exam Rectal Exam: Deferred - Exam Exam: NORMAL INSPECTION - Extremities Exam Extremities exam: Positive for: pedal pulses present. Negative for: calf tenderness, pedal edema, tenderness - Back Exam Back exam: absent: CVA tenderness (L), CVA tenderness (R), paraspinal tenderness - Neurological Exam Neurological exam: Alert, CN II-XII Intact, Oriented x3, Reflexes Normal - Psychiatric Exam Psychiatric exam: Normal Mood - Skin Skin Exam: Dry Results - Vital Signs Recent Vital Signs: Last Vital Signs Temp 97.6 F 02/11/17 08:31 Pulse 77 02/11/17 08:31 Resp 20 02/11/17 08:31 BP 102/67 02/11/17 08:31 Pulse Ox 100 02/11/17 08:31 - Labs Result Diagrams: 02/10/17 07:47 02/10/17 07:47 Assessment & Plan (1) COPD (chronic obstructive pulmonary disease) Status: Acute (2) Change in mental status Status: Acute (3) Leukocytosis Status: Acute (4) Post-ictal state Status: Acute (5) UTI (urinary tract infection) Status: Acute - Assessment and Plan (Free Text) Assessment: will reorder antibiotics for uti
[2017-02-11 14:01] LABS: SQUAMOUS EPITHIAL 1 /hpf (0-5); URINE BACTERIA RARE (<OCC); URINE BILIRUBIN NEGATIVE (NEGATIVE); URINE BLOOD NEGATIVE (NEGATIVE); URINE CLARITY SLIGHTY-CLOUDY (Clear); URINE COLOR YELLOW (YELLOW); URINE GLUCOSE (UA) NEG (Normal); URINE LEUKOCYTE ESTERASE SMALL Leu/uL (Negative); URINE NITRATE NEGATIVE (NEGATIVE); URINE PROTEIN NEGATIVE (NEGATIVE); URINE UROBILINOGEN 0.2-1.0 mg/dL (0.2-1.0)
[2017-02-11] MEDS: Oxycodone/Acetaminophen 5/325 mg Tab PO PRN (17:16)
[2017-02-12] MEDS: Silver Sulfadiazine 1% Cream (20 gm) TOP SCH (08:28)
[2017-02-12] MEDS: Enoxaparin 40 mg Syringe SC SCH (08:29)
[2017-02-12] MEDS: Lactobacillus Acidophilus 500 MU Cap PO SCH ×2 (08:32→17:40)
--- NOTE | 2017-02-12 11:10 | CP.PCM.PN ---
Subjective - Date & Time of Evaluation Date of Evaluation: 02/12/17 Time of Evaluation: 11:10 - Subjective Subjective: Patient refuses the insertion of the iv. Will continue PO meds, with for culture. He developed a rash in his body will follow. Objective - Vital Signs/Intake and Output Vital Signs (last 24 hours): Temp Pulse Resp BP Pulse Ox 97.9 F 85 20 118/75 100 02/12/17 08:07 02/12/17 08:07 02/12/17 08:07 02/12/17 08:07 02/12/17 08:07 Intake and Output: 02/11/17 02/12/17 23:59 11:59 Intake Total 300 Output Total 600 Balance -300 - Medications Medications: Current Medications Baclofen (Lioresal) 20 mg PO TID [facility] Last Admin: 02/12/17 08:28 Dose: 20 mg Dexamethasone (Decadron) 4 mg PO ONCE ONE Stop: 02/12/17 11:08 Diphenhydramine HCl (Benadryl) 50 mg PO Q6 PRN PRN Reason: Allergy symptoms Enoxaparin Sodium (Lovenox) 40 mg SC DAILY [facility] PRN Reason: Protocol Last Admin: 02/12/17 08:29 Dose: 40 mg Famotidine (Pepcid) 20 mg PO BID [facility] Last Admin: 02/12/17 08:28 Dose: 20 mg Fentanyl (Duragesic) 1 patch TD Q72 [facility] PRN Reason: Protocol Last Admin: 02/09/17 21:02 Dose: 1 patch Fluconazole (Diflucan) 200 mg PO DAILY [facility] Last Admin: 02/12/17 08:28 Dose: 200 mg Home Med (Dimethyl Fumarate [Tecfidera]) 240 mg PO BID [facility] Last Admin: 02/12/17 08:28 Dose: 240 mg Vancomycin HCl 1 gm/ Sodium (Chloride) 250 mls @ 125 mls/hr IVPB DAILY [facility] Last Admin: 02/12/17 08:26 Dose: Not Given Piperacillin Sod/Tazobactam (Sod 2.25 gm/ Sodium Chloride) 100 mls @ 100 mls/ hr IVPB 0600,1200,1800,0000 [facility] Last Admin: 02/12/17 05:51 Dose: Not Given Lactobacillus Acidophilus (Bacid Acidophilus) 1 cap PO BID [facility] Last Admin: 02/12/17 08:32 Dose: 1 cap Lamotrigine (Lamictal) 200 mg PO BID [facility] Last Admin: 02/12/17 08:28 Dose: 200 mg Levetiracetam (Keppra) 1,000 mg PO TID [facility] Last Admin: 02/12/17 08:28 Dose: 1,000 mg Oxycodone/Acetaminophen (Percocet 5/325 Mg Tab) 1 tab PO Q6 PRN PRN Reason: Pain, moderate (4-7) Stop: 02/12/17 20:23 Last Admin: 02/11/17 17:16 Dose: 1 tab Silver Sulfadiazine (Silvadene 1% 20 Gm) 1 ea TOP DAILY [facility] Last Admin: 02/12/17 08:28 Dose: 1 applic Tamsulosin HCl (Flomax) 0.4 mg PO DAILY [facility] Last Admin: 02/12/17 08:28 Dose: 0.4 mg - Labs Labs: 02/10/17 07:47 02/10/17 07:47 - Constitutional Appears: Confused, Chronically Ill - Head Exam Head Exam: ATRAUMATIC, NORMAL INSPECTION, NORMOCEPHALIC - Eye Exam Eye Exam: Normal appearance - Neck Exam Neck Exam: Full ROM - Respiratory Exam Respiratory Exam: Clear to Ausculation Bilateral - Cardiovascular Exam Cardiovascular Exam: REGULAR RHYTHM, +S1, +S2 - GI/Abdominal Exam GI & Abdominal Exam: Normal Bowel Sounds - Neurological Exam Neurological Exam: Altered, Awake - Skin Skin Exam: Rash Assessment and Plan (1) Chronic pain disorder Status: Chronic (2) DVT prophylaxis Status: Acute (3) Leukocytosis Status: Acute (4) Sepsis Status: Acute (5) Status epilepticus Status: Resolved (6) UTI (urinary tract infection) Status: Acute (7) Anxiety Status: Chronic (8) Multiple sclerosis Status: Chronic (9) Urinary retention Status: Chronic (10) Urolithiasis Status: Chronic (11) Dermatitis Status: Acute - Assessment and Plan (Free Text) Plan: As per orders.
[2017-02-13 08:00] VITALS: BP 110/67; PULSE 91; TEMP 98.1; O2SAT 97
[2017-02-13] MEDS: Silver Sulfadiazine 1% Cream (20 gm) TOP SCH (09:50)
[2017-02-13] MEDS: Lactobacillus Acidophilus 500 MU Cap PO SCH (09:50)
[2017-02-13] MEDS: Enoxaparin 40 mg Syringe SC SCH (09:54)
--- NOTE | 2017-02-13 13:58 | CP.PCM.DIS ---
Provider - Provider Date of Admission: 02/09/17 18:24 Attending physician: Leo Morris MD Primary care physician: Leo Morris MD Time Spent in preparation of Discharge (in minutes): 30 Diagnosis - Discharge Diagnosis (1) Chronic pain disorder Status: Chronic (2) DVT prophylaxis Status: Acute (3) Leukocytosis Status: Acute (4) Sepsis Status: Acute (5) Status epilepticus Status: Resolved Priority: High (6) UTI (urinary tract infection) Status: Acute (7) Anxiety Status: Chronic Priority: Medium (8) Multiple sclerosis Status: Chronic (9) Urinary retention Status: Chronic Priority: Low (10) Urolithiasis Status: Chronic (11) Dermatitis Status: Acute Hospital Course - Lab Results Lab Results: Micro Results 02/11/17 13:00 Urine,Taylor Urine Culture - Final Yeast Species Most Recent Lab Values WBC 11.0 K/uL (4.8-10.8) H 02/10/17 07:47 RBC 4.46 Mil/uL (4.40-5.90) 02/10/17 07:47 Hgb 12.5 g/dL (12.0-18.0) 02/10/17 07:47 Hct 38.6 % (35.0-51.0) 02/10/17 07:47 MCV 86.6 fl (80.0-94.0) D 02/10/17 07:47 MCH 28.1 pg (27.0-31.0) 02/10/17 07:47 MCHC 32.5 g/dL (33.0-37.0) L 02/10/17 07:47 RDW 15.9 % (11.5-14.5) H 02/10/17 07:47 Plt Count 322 K/uL (130-400) 02/10/17 07:47 Sodium 142 mmol/l (132-148) 02/10/17 07:47 Potassium 4.2 MMOL/L (3.6-5.0) 02/10/17 07:47 Chloride 104 mmol/L (98-107) 02/10/17 07:47 Carbon Dioxide 28 mmol/L (22-30) 02/10/17 07:47 Anion Gap 15 (10-20) 02/10/17 07:47 BUN 7 mg/dl (9-20) L 02/10/17 07:47 Creatinine 0.6 mg/dL (0.8-1.5) L 02/10/17 07:47 Est GFR ( Amer) > 60 02/10/17 07:47 Est GFR (Non-Af Amer) > 60 02/10/17 07:47 Random Glucose 106 mg/dL (75-110) 02/10/17 07:47 Calcium 9.5 mg/dL (8.4-10.2) 02/10/17 07:47 Urine Color Yellow (YELLOW) 02/11/17 13:00 Urine Clarity Slighty-cloudy (Clear) 02/11/17 13:00 Urine pH 6.0 (5.0-8.0) 02/11/17 13:00 Ur Specific [place] 1.018 (1.003-1.030) 02/11/17 13:00 Urine Protein Negative mg/dL (NEGATIVE) 02/11/17 13:00 Urine Glucose (UA) Neg mg/dL (Normal) 02/11/17 13:00 Urine Ketones Negative mg/dL (NEGATIVE) 02/11/17 13:00 Urine Blood Negative (NEGATIVE) 02/11/17 13:00 Urine Nitrate Negative (NEGATIVE) 02/11/17 13:00 Urine Bilirubin Negative (NEGATIVE) 02/11/17 13:00 Urine Urobilinogen 0.2-1.0 mg/dL (0.2-1.0) 02/11/17 13:00 Ur Leukocyte Esterase Small [place]/uL (Negative) 02/11/17 13:00 Urine RBC (Auto) 4 /hpf (0-3) H 02/11/17 13:00 Urine Microscopic WBC 21 /hpf (0-5) H 02/11/17 13:00 Ur Squamous Epith Cells 1 /hpf (0-5) 02/11/17 13:00 Urine Bacteria Rare (<OCC) 02/11/17 13:00 Vancomycin Trough 5.7 ug/mL (5.0-10.0) 02/09/17 07:47 - Hospital Course Hospital Course: Patient presented with status epileptic. Now un post vent comfortable blood culture negative, will dc home on present rx. Discharge Exam - Head Exam Head Exam: ATRAUMATIC, NORMAL INSPECTION, NORMOCEPHALIC - Eye Exam Eye Exam: Normal appearance - Neck Exam Neck exam: Full Rom - Respiratory Exam Respiratory Exam: Clear to PA & Lateral - Cardiovascular Exam Cardiovascular Exam: REGULAR RHYTHM, +S1, +S2 - GI/Abdominal Exam GI & Abdominal Exam: Hyperactive Bowel Sounds, Normal Bowel Sounds - Neurological Exam Neurological exam: Alert, CN II-XII Intact - Psychiatric Exam Psychiatric exam: Normal Affect - Skin Skin Exam: Normal Color Discharge Plan - Follow Up Plan Condition: GOOD Disposition: HOME/ ROUTINE Referrals: Leo Morris MD [Primary Care Provider] -
== END 2017-02-13 16:15 | disposition home health service (06) | DRG 872 ==
LOC: H.TCU 02-09 18:24
PROVIDERS: ADMIT Internal Medicine; ATTEND Internal Medicine
PROC: 3E04329 Introduction of Other Anti-infective into Central Vein, Percutaneous Approach (ICD-10-PCS; principal; 2017-02-09)
PROC: F07M6FZ Therapeutic Exercise Treatment of Musculoskeletal System - Whole Body using Assistive, Adaptive, Supportive or Protective Equipment (ICD-10-PCS; 2017-02-09)
DX: A41.9 Sepsis, unspecified organism (principal); R56.9 Unspecified convulsions; F03.90 Unspecified dementia, unspecified severity, without behavioral disturbance, psychotic disturbance, mood disturbance, and anxiety; N39.0 Urinary tract infection, site not specified; G35 Multiple sclerosis; E78.00 Pure hypercholesterolemia, unspecified; F41.9 Anxiety disorder, unspecified; G40.901 Epilepsy, unspecified, not intractable, with status epilepticus; G89.29 Other chronic pain; H54.7 Unspecified visual loss; I12.9 Hypertensive chronic kidney disease with stage 1 through stage 4 chronic kidney disease, or unspecified chronic kidney disease; J44.9 Chronic obstructive pulmonary disease, unspecified; L30.9 Dermatitis, unspecified; N18.9 Chronic kidney disease, unspecified; N20.9 Urinary calculus, unspecified; Z87.440 Personal history of urinary (tract) infections; Z87.442 Personal history of urinary calculi; D64.9 Anemia, unspecified; K59.00 Constipation, unspecified; M19.90 Unspecified osteoarthritis, unspecified site; Z74.01 Bed confinement status; R21 Rash and other nonspecific skin eruption

== ENCOUNTER 2017-02-24 16:13 | Inpatient (IN) | payer OTHER ==
[2017-02-19 13:22] VITALS: BMI 30.4
--- NOTE | 2017-02-24 19:02 | CP.PCM.HP ---
History of Present Illness - History of Present Illness History of Present Illness: CC: UTI from [facility] HPI: This is a 51 year old male with PMH MS dx 2000, bedbound, seizures, recurrent UTIs, discharged from [facility] for UTI and Sepsis, seen by Dr. Fraire admitted to TCU for continuation of 5 more days of Azactam. HD stable, NAD. ROS: per HPI, 12 systems reviewed and negative PMD: Dr. Morris, away on vacation PMSH: MS dx 2000, bedbound, seizures, recurrent UTIs FH: leukemia SH: denies tobacco, ETOH, IVDU Meds: as below Allergies: NKDA Vitals: reviewed and currently stable Exam: GEN: bedbound WDWN, alert, cooperative HEENT: NCAT, PERRL, EOMI poor dentition NECK: supple, no JVD, no lymphadenopathy CARDIAC: +S1S2 RRR LUNG: CTAB No WRR ABD: SOFT NT ND BSX4 NO MASSES NO HSM EXT: +pedal pulses, thick toenails NEURO: AAOx3 SKIN warm, dry PSYCH normal mood, normal affect Labs: reviewed from [facility] Active Medications: Allergies cefazolin Allergy (Verified 02/24/17 18:23) RASH, ITCHINESS Height & Weight Height 5 ft 8 in Weight 200 lb Start Date/Time Active Medications 02/24/17 19:03 Acetaminophen [Tylenol 325mg tab] 650 mg PO Q6 PRN 02/24/17 19:15 Aztreonam [Azactam] 1 gm Sodium Chloride 0.9% 100 ml IVPB Q8H 02/25/17 09:00 Baclofen [Lioresal] 20 mg PO TID Dimethyl Fumarate [Tecfidera] 240 mg PO BID Enoxaparin [Lovenox] 40 mg SC DAILY Lactobacillus Acidophilus [Bacid Acidophilus] 1 cap PO BID Tamsulosin [Flomax] 0.4 mg PO DAILY lamoTRIgine [LaMICtal] 200 mg PO BID levETIRAcetam [Keppra] 1,000 mg PO TID 02/27/17 09:00 fentaNYL 50 mcg/hr [Duragesic] 1 patch TD Q72 Is this Patient Opioid Tolerant?: Yes Assessment and Plan: 51 year old male with PMH MS dx 2000, bedbound, seizures, recurrent UTIs, discharged from [facility] for UTI and Sepsis, seen by Dr. Fraire admitted to TCU for continuation of 5 more days of Azactam. HD stable, NAD. UTI Dr. Fraire on consult, ID continue Azactam per ID monitor patient MS continue baclofen, tecfidera, fentanyl patch stable Seizures cont lamictal and keppra stable no seizures lovenox for VTE ppx Present on Admission - Present on Admission Any Indicators Present on Admission: No Past Patient History - Infectious Disease Hx of Infectious Diseases: None - Tetanus Immunizations Tetanus Immunization: Unknown - Past Medical History & Family History Past Medical History?: Yes - Past Social History Smoking Status: Never Smoked - CARDIAC Hx Hypercholesterolemia: Yes Hx Hypertension: Yes - PULMONARY Hx Chronic Obstructive Pulmonary Disease (COPD): Yes - NEUROLOGICAL Hx Dementia: Yes Hx Multiple Sclerosis: Yes Hx Seizures: Yes - HEENT Hx HEENT Problems: Yes (poor vision left eye) - RENAL Hx Chronic Kidney Disease: Yes Hx Kidney Stones: Yes - ENDOCRINE/METABOLIC Hx Endocrine Disorders: No - HEMATOLOGICAL/ONCOLOGICAL Hx Anemia: Yes - INTEGUMENTARY Hx Dermatological Problems: No - MUSCULOSKELETAL/RHEUMATOLOGICAL Hx Falls: No - GASTROINTESTINAL Hx Gastrointestinal Disorders: Yes (constipation) - GENITOURINARY/GYNECOLOGICAL Hx Genitourinary Disorders: Yes (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) Hx Incontinence: Yes Hx Prostate Problems: Yes Hx Urinary Tract Infection: Yes - PSYCHIATRIC Hx Substance Use: No - SURGICAL HISTORY Hx Surgeries: Yes Other/Comment: cysto with removal of stent 05/19/16- kidney stones - ANESTHESIA Hx Anesthesia: Yes Hx Anesthesia Reactions: No Hx Malignant Hyperthermia: No Meds Allergies/Adverse Reactions: Allergies Allergy/AdvReac Type Severity Reaction Status Date / Time cefazolin Allergy RASH, Verified 02/24/17 18:23 ITCHINESS
[2017-02-24] MEDS ORDERED: Aztreonam 1 GM in Sodium Chloride 0.9% 100 ML IVPB SCH (19:15)
[2017-02-24] MEDS ORDERED: Aztreonam 2 Gm Inj IVPB SCH (19:15)
[2017-02-24 21:09] VITALS: RESP 20
[2017-02-25] MEDS: Aztreonam 1 GM in Sodium Chloride 0.9% 100 ML IVPB SCH ×3 (04:01→21:49)
[2017-02-25 07:26] LABS: BASO % 0.4 % (0.0-2.0); EOS # 0.3 K/uL (0.0-0.7); HEMOGLOBIN 11.9 g/dL (12.0-18.0); LYMPH # 3.3 K/uL (1.0-4.3); LYMPH % 44.9 % (20.0-40.0); MEAN CELL VOLUME 86.3 fl (80.0-94.0); MEAN CORPUSCULAR HEMOGLOBIN 28.2 pg (27.0-31.0); MEAN CORPUSCULAR HGB CONC 32.7 g/dL (33.0-37.0); MEAN PLATELET VOLUME 7.9 fl (7.2-11.7); MONO # 0.9 K/uL (0.0-0.8); MONO % 12.3 % (0.0-10.0); NEUT # 2.8 K/uL (1.8-7.0); NEUT % 38.4 % (50.0-75.0); NRBC % 0.1 % (0.0-0.0); RBC 4.23 Mil/uL (4.40-5.90); RED CELL DISTRIBUTION WIDTH 15.2 % (11.5-14.5); WHITE BLOOD COUNT 7.3 K/uL (4.8-10.8)
[2017-02-25 07:34] LABS: BLOOD UREA NITROGEN 9 mg/dl (9-20); CALCIUM 9.5 mg/dL (8.4-10.2); GFR AFRICAN-AMERICAN > 60; GFR NON-AFRICAN AMERICAN > 60
[2017-02-25] MEDS: Enoxaparin 40 mg Syringe SC SCH (08:32)
[2017-02-25] MEDS: Lactobacillus Acidophilus 500 MU Cap PO SCH ×2 (08:37→17:36)
--- NOTE | 2017-02-25 13:30 | CP.PCM.CON ---
History of Present Illness - History of Present Illness History of Present Illness: 51 yo male with hx of MS and quadraperesis who is bed bound and has hx of recurrent UTI's / sepsis s/p suprapubic catheter Recently treated at for urosepsis secondary to E COLI PMH - MS, seizures, DVT, , UTI, nephrolithiasis SH lives with SH - + IVC filter FH- N/C allergy- Cefazolin Review of Systems - Constitutional Constitutional: As Per HPI - EENT Eyes: absent: As Per HPI, Blind Spots, Blurred Vision, Change in Vision, Decreased Night Vision, Diplopia, Discharge, Dry Eye, Exophthalmos, Floaters, Irritation, Itchy Eyes, Loss of Peripheral Vision, Pain, Photophobia, Requires Corrective Lenses, Sees Flashes, Spots in Vision, Tunnel Vision, Other Visual Disturbances, Loss of Vision, Other Ears: absent: As Per HPI, Decreased Hearing, Ear Discharge, Ear Pain, Tinnitus, Abnormal Hearing, Disequilibrium, Dizziness, Other Nose/Mouth/Throat: absent: As Per HPI, Epistaxis, Nasal Congestion, Nasal Discharge, Nasal Obstruction, Nasal Trauma, Nose Pain, Post Nasal Drip, Sinus Pain, Sinus Pressure, Bleeding Gums, Change in Voice, Dental Pain, Dry Mouth, Dysphagia, Halitosis, Hoarsness, Lip Swelling, Mouth Lesions, Mouth Pain, Odynophagia, Sore Throat, Throat Swelling, Tongue Swelling, Facial Pain, Neck Pain, Neck Mass, Other - Cardiovascular Cardiovascular: absent: As Per HPI, Acrocyanosis, Chest Pain, Chest Pain at Rest , Chest Pain with Activity, Claudication, Diaphoresis, Dyspnea, Dyspnea on Exertion, Edema, Irregular Heart Rhythm, Pain Radiating to Arm/Neck/Jaw, Leg Edema, Leg Ulcers, Lightheadedness, Orthopnea, Palpitations, Paroxysmal Nocturnal Dyspnea, Pedal Edema, Radiating Pain, Rapid Heart Rate, Slow Heart Rate, Syncope, Other - Respiratory Respiratory: absent: As Per HPI, Cough, Dyspnea, Hemoptysis, Dyspnea on Exertion , Wheezing, Snoring, Stridor, Pain on Inspiration, Chest Congestion, Excessive Mucous Production, Change in Mucous Color, Pain with Coughing, Other - Gastrointestinal Gastrointestinal: absent: As Per HPI, Abdominal Pain, Belching, Bloating, Change in Bowel Habits, Change in Stool Character, Coffee Ground Emesis, Constipation, Cramping, Diarrhea, Dyspepsia, Dysphagia, Early Satiety, Excessive Flatus, Fecal Incontinence, Heartburn, Hematemesis, Hematochezia, Loose Stools, Melena, Nausea, Odynophagia, Temesmus, Vomiting, Other - Genitourinary Genitourinary: As Per HPI - Musculoskeletal Musculoskeletal: As Per HPI - Integumentary Integumentary: absent: As Per HPI, Acne, Alopecia, Bleeding Lesions, Change in Hair, Change in Nails, Change in Pigmentation, Changing Lesions, Dry Skin, Erythema, Furuncle, Hirsutism, Lesions, New Lesions, Non-Healing Lesions, Photosensitivity, Pruritus, Rash, Skin Pain, Skin Ulcer, Sores, Striae, Swelling , Unusual Bruising, Wounds, Jaundice, Other - Neurological Neurological: As Per HPI - Psychiatric Psychiatric: absent: As Per HPI, Abnormal Sleep Pattern, Anhedonia, Anxiety, Auditory Hallucinations, Behavioral Changes, Change in Appetite, Change in Libido, Confusion, Depression, Difficulty Concentrating, Hallucinations, Homicidal Ideation, Hopelessness, Irritability, Memory Loss, Mood Swings, Panic Attacks, Paranoia, Suicidal Ideation, Visual Hallucinations, Tactile Hallucinations, Other - Endocrine Endocrine: absent: As Per HPI, Change in Body Appearance, Change in Libido, Cold Intolorance, Deepening of Voice, Excessive Sweating, Fatigue, Flushing, Heat Intolorance, Increase in Ring/Shoe/Hat Size, Palpitations, Polydipsia, Polyphagia, Polyuria, Other - Hematologic/Lymphatic Hematologic: absent: As Per HPI, Easy Bleeding, Easy Bruising, Lymphadenopathy, Other Past Patient History - Infectious Disease Hx of Infectious Diseases: None - Tetanus Immunizations Tetanus Immunization: Unknown - Past Medical History & Family History Past Medical History?: Yes - Past Social History Smoking Status: Former Smoker - CARDIAC Hx Hypercholesterolemia: Yes Hx Hypertension: Yes - PULMONARY Hx Chronic Obstructive Pulmonary Disease (COPD): Yes - NEUROLOGICAL Hx Dementia: Yes Hx Multiple Sclerosis: Yes Hx Seizures: Yes - HEENT Hx HEENT Problems: Yes (poor vision left eye) - RENAL Hx Chronic Kidney Disease: Yes Hx Kidney Stones: Yes - ENDOCRINE/METABOLIC Hx Endocrine Disorders: No - HEMATOLOGICAL/ONCOLOGICAL Hx Anemia: Yes - INTEGUMENTARY Hx Dermatological Problems: No - MUSCULOSKELETAL/RHEUMATOLOGICAL Hx Falls: No - GASTROINTESTINAL Hx Gastrointestinal Disorders: Yes (constipation) - GENITOURINARY/GYNECOLOGICAL Hx Genitourinary Disorders: Yes (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) Hx Incontinence: Yes Hx Prostate Problems: Yes Hx Urinary Tract Infection: Yes - PSYCHIATRIC Hx Substance Use: No - SURGICAL HISTORY Hx Surgeries: Yes Other/Comment: cysto with removal of stent 05/19/16- kidney stones - ANESTHESIA Hx Anesthesia: Yes Hx Anesthesia Reactions: No Hx Malignant Hyperthermia: No Meds Allergies/Adverse Reactions: Allergies Allergy/AdvReac Type Severity Reaction Status Date / Time cefazolin Allergy RASH, Verified 02/24/17 18:23 ITCHINESS - Medications Medications: Current Medications Acetaminophen (Tylenol 325mg Tab) 650 mg PO Q6 PRN PRN Reason: Fever >100.4 F Baclofen (Lioresal) [address] [facility] Last Admin: 02/25/17 12:01 Dose: 20 mg Enoxaparin Sodium (Lovenox) [address] [facility] PRN Reason: Protocol Last Admin: 02/25/17 08:32 Dose: 40 mg Fentanyl (Duragesic) [address] [facility] PRN Reason: Protocol Home Med (Dimethyl Fumarate [Tecfidera]) [address] [facility] Last Admin: 02/25/17 08:32 Dose: 240 mg Aztreonam 1 gm/ Sodium (Chloride) 100 mls @ 100 mls/hr IVPB Q8@0400,1200,2200 [facility] Last Admin: 02/25/17 11:57 Dose: 100 mls/hr Lactobacillus Acidophilus (Bacid Acidophilus) [address] [facility] Last Admin: 02/25/17 08:37 Dose: 1 cap Lamotrigine (Lamictal) [address] [facility] Last Admin: 02/25/17 08:32 Dose: 200 mg Levetiracetam (Keppra) 1,[address] [facility] Last Admin: 02/25/17 12:00 Dose: 1,000 mg Tamsulosin HCl (Flomax) 0.[address] [facility] Last Admin: 02/25/17 08:32 Dose: 0.4 mg Physical Exam - Constitutional Appears: Non-toxic, Chronically Ill - Head Exam Head Exam: NORMOCEPHALIC - Eye Exam Eye Exam: PERRL. absent: Scleral icterus - ENT Exam ENT Exam: Mucous Membranes Dry, Normal External Ear Exam - Neck Exam Neck exam: Negative for: Lymphadenopathy, Thyromegaly - Respiratory Exam Respiratory Exam: Decreased Breath Sounds, Clear to Auscultation Bilateral - Cardiovascular Exam Cardiovascular Exam: REGULAR RHYTHM, +S1, +S2 - GI/Abdominal Exam GI & Abdominal Exam: Diminished Bowel Sounds, Soft. absent: Tenderness - Rectal Exam Rectal Exam: Deferred - Exam Exam: absent: NORMAL INSPECTION - Extremities Exam Extremities exam: Positive for: pedal pulses present. Negative for: calf tenderness, pedal edema, tenderness - Back Exam Back exam: absent: CVA tenderness (L), CVA tenderness (R) - Neurological Exam Neurological exam: Alert, CN II-XII Intact, Motor Sensory Deficit, Oriented x3 - Psychiatric Exam Psychiatric exam: Depressed - Skin Skin Exam: Dry Results - Vital Signs Recent Vital Signs: Last Vital Signs Temp 97.0 F L 02/25/17 08:05 Pulse 74 02/25/17 08:05 Resp 20 02/25/17 08:05 BP 110/70 02/25/17 08:05 Pulse Ox 100 02/25/17 08:05 - Labs Result Diagrams: 02/25/17 05:30 02/25/17 05:30 Labs: Laboratory Results - last 24 hr 02/25/17 02/25/17 05:30 05:30 WBC 7.3 RBC 4.23 L Hgb 11.9 L Hct 36.5 MCV 86.3 MCH 28.2 MCHC 32.7 L RDW 15.2 H Plt Count 316 MPV 7.9 Neut % (Auto) 38.4 L Lymph % (Auto) 44.9 H [place] % (Auto) 12.3 H Eos % (Auto) 4.0 Baso % (Auto) 0.4 Neut # 2.8 Lymph # 3.3 [place] # 0.9 H Eos # 0.3 Baso # 0.0 Sodium 144 Potassium 3.8 Chloride 105 Carbon Dioxide 31 H Anion Gap 12 BUN 9 Creatinine 0.6 L Est GFR ( Amer) > 60 Est GFR (Non-Af Amer) > 60 Random Glucose 92 Calcium 9.5 Assessment & Plan - Assessment and Plan (Free Text) Assessment: recurrent uti sepsis resolving cont azactam x 7 days
[2017-02-25] MEDS: Oxycodone/Acetaminophen 5/325 mg Tab PO PRN (17:49)
[2017-02-26] MEDS: Aztreonam 1 GM in Sodium Chloride 0.9% 100 ML IVPB SCH ×3 (03:37→21:48)
[2017-02-26] MEDS: Lactobacillus Acidophilus 500 MU Cap PO SCH ×2 (08:09→17:48)
[2017-02-26] MEDS: Enoxaparin 40 mg Syringe SC SCH (08:10)
[2017-02-26] MEDS: Oxycodone/Acetaminophen 5/325 mg Tab PO PRN ×2 (17:38→23:12)
[2017-02-27] MEDS: Aztreonam 1 GM in Sodium Chloride 0.9% 100 ML IVPB SCH ×3 (04:09→22:42)
[2017-02-27] MEDS: Lactobacillus Acidophilus 500 MU Cap PO SCH ×2 (09:37→16:31)
[2017-02-27] MEDS: Enoxaparin 40 mg Syringe SC SCH (09:37)
--- NOTE | 2017-02-27 18:42 | CP.PCM.PN ---
Subjective - Date & Time of Evaluation Date of Evaluation: 02/27/17 Time of Evaluation: 12:00 - Subjective Subjective: Pt seen and examined. Denied any complaint. Objective - Vital Signs/Intake and Output Vital Signs (last 24 hours): Temp Pulse Resp BP Pulse Ox 98.1 F 84 20 101/69 96 02/27/17 17:48 02/27/17 17:48 02/27/17 17:48 02/27/17 17:48 02/27/17 17:48 - Medications Medications: Current Medications Acetaminophen (Tylenol 325mg Tab) 650 mg PO Q6 PRN PRN Reason: Fever >100.4 F Baclofen (Lioresal) 20 mg PO TID [facility] Last Admin: 02/27/17 16:31 Dose: 20 mg Enoxaparin Sodium (Lovenox) 40 mg SC DAILY [facility] PRN Reason: Protocol Last Admin: 02/27/17 09:37 Dose: 40 mg Fentanyl (Duragesic) 1 patch TD Q72 [facility] PRN Reason: Protocol Last Admin: 02/27/17 09:44 Dose: 1 patch Home Med (Dimethyl Fumarate [Tecfidera]) 240 mg PO BID [facility] Last Admin: 02/27/17 16:31 Dose: 240 mg Aztreonam 1 gm/ Sodium (Chloride) 100 mls @ 100 mls/hr IVPB Q8@0400,1200,2200 [facility] Last Admin: 02/27/17 12:08 Dose: 100 mls/hr Lactobacillus Acidophilus (Bacid Acidophilus) 1 cap PO BID [facility] Last Admin: 02/27/17 16:31 Dose: 1 cap Lamotrigine (Lamictal) 200 mg PO BID [facility] Last Admin: 02/27/17 16:31 Dose: 200 mg Levetiracetam (Keppra) 1,000 mg PO TID [facility] Last Admin: 02/27/17 16:31 Dose: 1,000 mg Oxycodone/Acetaminophen (Percocet 5/325 Mg Tab) 1 tab PO Q6 PRN PRN Reason: Pain, severe (8-10) Stop: 02/28/17 17:45 Last Admin: 02/26/17 23:12 Dose: 1 tab Tamsulosin HCl (Flomax) 0.4 mg PO DAILY [facility] Last Admin: 02/27/17 09:38 Dose: 0.4 mg - Labs Labs: 02/25/17 05:30 02/25/17 05:30 - Constitutional Appears: No Acute Distress - Head Exam Head Exam: ATRAUMATIC - Eye Exam Eye Exam: absent: Scleral icterus - ENT Exam ENT Exam: Mucous Membranes Moist - Neck Exam Neck Exam: absent: Meningismus - Respiratory Exam Respiratory Exam: absent: Rhonchi, Wheezes, Respiratory Distress - Cardiovascular Exam Cardiovascular Exam: REGULAR RHYTHM, +S1, +S2 - GI/Abdominal Exam GI & Abdominal Exam: Soft. absent: Tenderness - Rectal Exam Rectal Exam: Deferred - Neurological Exam Neurological Exam: Alert, Oriented x3 - Psychiatric Exam Psychiatric exam: Normal Affect - Skin Skin Exam: Dry, Intact Assessment and Plan - Assessment and Plan (Free Text) Assessment: 51 yo bed bound male with history of MS, seizures, recurrent UTIs sent from [facility] to TCU for continuation of IV antibiotics for UTI and Sepsis. 1. UTI 2 more days of IV Azactam 2. MS continue Baclofen, Tecfidera, Fentanyl patch stable 3. Seizures continue Lamictal and Keppra stable no seizures 4. DVT prophylaxis Loc
[2017-02-27] MEDS: Oxycodone/Acetaminophen 5/325 mg Tab PO PRN (23:09)
[2017-02-28] MEDS: Aztreonam 1 GM in Sodium Chloride 0.9% 100 ML IVPB SCH ×3 (05:02→21:00)
[2017-02-28] MEDS: Lactobacillus Acidophilus 500 MU Cap PO SCH ×2 (09:46→17:23)
[2017-02-28] MEDS: Enoxaparin 40 mg Syringe SC SCH (09:53)
--- NOTE | 2017-02-28 13:15 | CP.PCM.PN ---
Subjective - Date & Time of Evaluation Date of Evaluation: 02/28/17 Time of Evaluation: 07:00 - Subjective Subjective: improving denies fever or chills Objective - Vital Signs/Intake and Output Vital Signs (last 24 hours): Temp Pulse Resp BP Pulse Ox 97.7 F 92 H 20 91/74 L 96 02/28/17 10:12 02/28/17 10:12 02/28/17 10:12 02/28/17 10:12 02/28/17 10:12 - Medications Medications: Current Medications Acetaminophen (Tylenol 325mg Tab) 650 mg PO Q6 PRN PRN Reason: Fever >100.4 F Baclofen (Lioresal) 20 mg PO TID [facility] Last Admin: 02/28/17 12:49 Dose: 20 mg Fentanyl (Duragesic) 1 patch TD Q72 [facility] PRN Reason: Protocol Last Admin: 02/27/17 09:44 Dose: 1 patch Home Med (Dimethyl Fumarate [Tecfidera]) 240 mg PO BID [facility] Last Admin: 02/28/17 09:53 Dose: 240 mg Aztreonam 1 gm/ Sodium (Chloride) 100 mls @ 100 mls/hr IVPB Q8@0400,1200,2200 [facility] Last Admin: 02/28/17 12:49 Dose: 100 mls/hr Lactobacillus Acidophilus (Bacid Acidophilus) 1 cap PO BID [facility] Last Admin: 02/28/17 09:46 Dose: 1 cap Lamotrigine (Lamictal) 200 mg PO BID [facility] Last Admin: 02/28/17 09:52 Dose: 200 mg Levetiracetam (Keppra) 1,000 mg PO TID [facility] Last Admin: 02/28/17 12:50 Dose: 1,000 mg Oxycodone/Acetaminophen (Percocet 5/325 Mg Tab) 1 tab PO Q6 PRN PRN Reason: Pain, severe (8-10) Stop: 02/28/17 17:45 Last Admin: 02/27/17 23:09 Dose: 1 tab Tamsulosin HCl (Flomax) 0.4 mg PO DAILY [facility] Last Admin: 02/28/17 09:53 Dose: 0.4 mg - Labs Labs: 02/25/17 05:30 02/25/17 05:30 - Constitutional Appears: Non-toxic - Head Exam Head Exam: NORMOCEPHALIC - Eye Exam Eye Exam: absent: Scleral icterus - ENT Exam ENT Exam: Mucous Membranes Dry - Neck Exam Neck Exam: absent: Lymphadenopathy - Respiratory Exam Respiratory Exam: Decreased Breath Sounds - Cardiovascular Exam Cardiovascular Exam: REGULAR RHYTHM - GI/Abdominal Exam GI & Abdominal Exam: Distended, Soft Assessment and Plan - Assessment and Plan (Free Text) Assessment: s/p UTI sepsis at to cont po cipro on discharge
[2017-02-28 19:47] LABS: URINE BILIRUBIN NEGATIVE (NEGATIVE); URINE BLOOD NEGATIVE (NEGATIVE); URINE CLARITY CLEAR (Clear); URINE COLOR STRAW (YELLOW); URINE GLUCOSE (UA) NEG (Normal); URINE LEUKOCYTE ESTERASE NEG Leu/uL (Negative); URINE NITRATE NEGATIVE (NEGATIVE); URINE PROTEIN NEGATIVE (NEGATIVE); URINE UROBILINOGEN 0.2-1.0 mg/dL (0.2-1.0)
[2017-02-28] MEDS ORDERED: Oxycodone/Acetaminophen 5/325 mg Tab PO PRN (21:54)
[2017-03-01] MEDS: Aztreonam 1 GM in Sodium Chloride 0.9% 100 ML IVPB SCH ×2 (04:36→11:17)
[2017-03-01 07:57] LABS: BASO # 0.1 K/uL (0.0-0.2); BASO % 0.7 % (0.0-2.0); EOS # 0.5 K/uL (0.0-0.7); EOS % 5.7 % (0.0-4.0); HEMOGLOBIN 12.8 g/dL (12.0-18.0); LYMPH # 3.9 K/uL (1.0-4.3); LYMPH % 45.3 % (20.0-40.0); MEAN CELL VOLUME 86.1 fl (80.0-94.0); MEAN CORPUSCULAR HEMOGLOBIN 28.6 pg (27.0-31.0); MEAN CORPUSCULAR HGB CONC 33.3 g/dL (33.0-37.0); MEAN PLATELET VOLUME 7.3 fl (7.2-11.7); MONO # 0.7 K/uL (0.0-0.8); MONO % 8.4 % (0.0-10.0); NEUT # 3.4 K/uL (1.8-7.0); NEUT % 39.9 % (50.0-75.0); NRBC % 0.1 % (0.0-0.0); RBC 4.46 Mil/uL (4.40-5.90); RED CELL DISTRIBUTION WIDTH 15.6 % (11.5-14.5); WHITE BLOOD COUNT 8.6 K/uL (4.8-10.8)
[2017-03-01 08:05] LABS: ALB/GLOB RATIO 1.2 (1.0-2.1); ALBUMIN 4.4 g/dL (3.5-5.0); ALT/SGPT 51 U/L (21-72); AST/SGOT 24 U/L (17-59); BLOOD UREA NITROGEN 12 mg/dl (9-20); CALCIUM 9.7 mg/dL (8.4-10.2); GFR AFRICAN-AMERICAN > 60; GFR NON-AFRICAN AMERICAN > 60
[2017-03-01 08:27] VITALS: BP 101/63; PULSE 83; TEMP 97.8; O2SAT 99
[2017-03-01] MEDS: Lactobacillus Acidophilus 500 MU Cap PO SCH (08:33)
--- NOTE | 2017-03-01 09:37 | CP.PCM.PN ---
Objective - Vital Signs/Intake and Output Vital Signs (last 24 hours): Temp Pulse Resp BP Pulse Ox 97.8 F 83 20 101/63 99 03/01/17 08:26 03/01/17 08:26 03/01/17 08:26 03/01/17 08:26 03/01/17 08:26 - Medications Medications: Current Medications Acetaminophen (Tylenol 325mg Tab) 650 mg PO Q6 PRN PRN Reason: Fever >100.4 F Baclofen (Lioresal) 20 mg PO TID [facility] Last Admin: 03/01/17 08:38 Dose: 20 mg Fentanyl (Duragesic) 1 patch TD Q72 [facility] PRN Reason: Protocol Last Admin: 02/27/17 09:44 Dose: 1 patch Home Med (Dimethyl Fumarate [Tecfidera]) 240 mg PO BID [facility] Last Admin: 03/01/17 08:37 Dose: 240 mg Aztreonam 1 gm/ Sodium (Chloride) 100 mls @ 100 mls/hr IVPB Q8@0400,1200,2200 [facility] Last Admin: 03/01/17 04:36 Dose: 100 mls/hr Lactobacillus Acidophilus (Bacid Acidophilus) 1 cap PO BID [facility] Last Admin: 03/01/17 08:33 Dose: 1 cap Lamotrigine (Lamictal) 200 mg PO BID [facility] Last Admin: 03/01/17 08:37 Dose: 200 mg Levetiracetam (Keppra) 1,000 mg PO TID [facility] Last Admin: 03/01/17 08:38 Dose: 1,000 mg Oxycodone/Acetaminophen (Percocet 5/325 Mg Tab) 1 tab PO Q6 PRN PRN Reason: Pain, severe (8-10) Stop: 03/03/17 21:55 Last Admin: 02/28/17 22:28 Dose: 1 tab Tamsulosin HCl (Flomax) 0.4 mg PO DAILY [facility] Last Admin: 03/01/17 08:37 Dose: 0.4 mg - Labs Labs: 03/01/17 06:00 03/01/17 06:00 Assessment and Plan - Assessment and Plan (Free Text) Assessment: 51 yo bed bound male with history of MS, seizures, recurrent UTIs sent from [facility] to TCU for continuation of IV antibiotics for UTI and Sepsis. 1. UTI 2 more days of IV Azactam 2. MS continue Baclofen, Tecfidera, Fentanyl patch stable 3. Seizures continue Lamictal and Keppra stable no seizures 4. DVT prophylaxis Loc
--- NOTE | 2017-03-01 09:39 | CP.PCM.DIS ---
Provider - Provider Date of Admission: 02/24/17 18:25 Attending physician: Monica Griffith DO Primary care physician: Dr. Morris Consults: podiatry ID consult Time Spent in preparation of Discharge (in minutes): 20 Hospital Course - Lab Results Lab Results: Most Recent Lab Values WBC 8.6 K/uL (4.8-10.8) 03/01/17 06:00 RBC 4.46 Mil/uL (4.40-5.90) 03/01/17 06:00 Hgb 12.8 g/dL (12.0-18.0) 03/01/17 06:00 Hct 38.4 % (35.0-51.0) 03/01/17 06:00 MCV 86.1 fl (80.0-94.0) 03/01/17 06:00 MCH 28.6 pg (27.0-31.0) 03/01/17 06:00 MCHC 33.3 g/dL (33.0-37.0) 03/01/17 06:00 RDW 15.6 % (11.5-14.5) H 03/01/17 06:00 Plt Count 402 K/uL (130-400) H 03/01/17 06:00 MPV 7.3 fl (7.2-11.7) 03/01/17 06:00 Neut % (Auto) 39.9 % (50.0-75.0) L 03/01/17 06:00 Lymph % (Auto) 45.3 % (20.0-40.0) H 03/01/17 06:00 [place] % (Auto) 8.4 % (0.0-10.0) 03/01/17 06:00 Eos % (Auto) 5.7 % (0.0-4.0) H 03/01/17 06:00 Baso % (Auto) 0.7 % (0.0-2.0) 03/01/17 06:00 Neut # 3.4 K/uL (1.8-7.0) 03/01/17 06:00 Lymph # 3.9 K/uL (1.0-4.3) 03/01/17 06:00 [place] # 0.7 K/uL (0.0-0.8) 03/01/17 06:00 Eos # 0.5 K/uL (0.0-0.7) 03/01/17 06:00 Baso # 0.1 K/uL (0.0-0.2) 03/01/17 06:00 Sodium 142 mmol/l (132-148) 03/01/17 06:00 Potassium 4.6 MMOL/L (3.6-5.0) 03/01/17 06:00 Chloride 102 mmol/L (98-107) 03/01/17 06:00 Carbon Dioxide 29 mmol/L (22-30) 03/01/17 06:00 Anion Gap 16 (10-20) 03/01/17 06:00 BUN 12 mg/dl (9-20) 03/01/17 06:00 Creatinine 0.6 mg/dL (0.8-1.5) L 03/01/17 06:00 Est GFR ( Amer) > 60 03/01/17 06:00 Est GFR (Non-Af Amer) > 60 03/01/17 06:00 Random Glucose 86 mg/dL (75-110) 03/01/17 06:00 Calcium 9.7 mg/dL (8.4-10.2) 03/01/17 06:00 Total Bilirubin 0.4 mg/dl (0.2-1.3) 03/01/17 06:00 AST 24 U/L (17-59) 03/01/17 06:00 ALT 51 U/L (21-72) 03/01/17 06:00 Alkaline Phosphatase 76 U/L (38-126) 03/01/17 06:00 Total Protein 8.0 G/DL (6.3-8.2) 03/01/17 06:00 Albumin 4.4 g/dL (3.5-5.0) 03/01/17 06:00 Globulin 3.6 gm/dL (2.2-3.9) 03/01/17 06:00 Albumin/Globulin Ratio 1.2 (1.0-2.1) 03/01/17 06:00 Urine Color Straw (YELLOW) 02/28/17 19:25 Urine Clarity Clear (Clear) 02/28/17 19:25 Urine pH 7.0 (5.0-8.0) 02/28/17 19:25 Ur Specific [place] 1.012 (1.003-1.030) 02/28/17 19:25 Urine Protein Negative mg/dL (NEGATIVE) 02/28/17 19:25 Urine Glucose (UA) Neg mg/dL (Normal) 02/28/17 19:25 Urine Ketones Negative mg/dL (NEGATIVE) 02/28/17 19:25 Urine Blood Negative (NEGATIVE) 02/28/17 19:25 Urine Nitrate Negative (NEGATIVE) 02/28/17 19:25 Urine Bilirubin Negative (NEGATIVE) 02/28/17 19:25 Urine Urobilinogen 0.2-1.0 mg/dL (0.2-1.0) 02/28/17 19:25 Ur Leukocyte Esterase Neg [place]/uL (Negative) 02/28/17 19:25 Urine RBC (Auto) < 1 /hpf (0-3) 02/28/17 19:25 Urine Microscopic WBC 1 /hpf (0-5) 02/28/17 19:25 - Hospital Course Hospital Course: 51 yo bed bound male with history of MS, seizures, recurrent UTIs sent from [facility] to TCU for continuation of IV antibiotics for UTI and Sepsis Patient was treated with Azactam IV . Id was cosnulted At present hemodynamically stable, afebrile. Will discharge home on Ciprofloxacin PO for 10 more days as per ID . 1. UTI received IV azactam will d/c home on Po Ciprofloxacin for 10more days 2. MS continue Baclofen, Tecfidera, Fentanyl patch stable 3. Seizures continue Lamictal and Keppra stable no seizures 4. DVT prophylaxis Lovenox Discharge Exam - Head Exam Head Exam: NORMOCEPHALIC Discharge Plan - Discharge Medications Prescriptions: Ciprofloxacin 500 mg PO BID #[id number] [facility]..rec - Follow Up Plan Condition: GOOD Disposition: HOME/ ROUTINE
== END 2017-03-01 16:15 | disposition home or self-care (01) | DRG 871 ==
LOC: H.TCU 18:25
PROVIDERS: ADMIT Student in an Organized Health Care Education/Training Program; ATTEND Student in an Organized Health Care Education/Training Program
DX: A41.9 Sepsis, unspecified organism (principal); G82.50 Quadriplegia, unspecified; N39.0 Urinary tract infection, site not specified; G35 Multiple sclerosis; I10 Essential (primary) hypertension; J44.9 Chronic obstructive pulmonary disease, unspecified; G40.909 Epilepsy, unspecified, not intractable, without status epilepticus; Z87.891 Personal history of nicotine dependence; Z74.01 Bed confinement status

== ENCOUNTER 2017-05-28 15:47 | Inpatient (IN) | payer OTHER ==
[2017-05-28 19:00] VITALS: BMI 31.3
[2017-05-28] MEDS ORDERED: Influenza Vaccine 18yr & older 0.5 ML/45 MCG SYR IM ONE (22:00)
[2017-05-29] MEDS: Aztreonam 2 GM in Sodium Chloride 0.9% 100 ML IVPB SCH ×3 (00:44→16:44)
[2017-05-29] MEDS ORDERED: Aztreonam 2 Gm Inj IVPB SCH (05:00)
[2017-05-29] MEDS: Fluconazole IV 200mg/100 ml NS 100 ML IVPB SCH (08:29)
[2017-05-29] MEDS: Lactobacillus Acidophilus 500 MU Cap PO SCH ×2 (08:29→16:46)
[2017-05-29] MEDS: Enoxaparin 40 mg Syringe SC SCH (08:31)
[2017-05-29] MEDS ORDERED: [UNRECOGNIZED DRUG - OTHER] IV SCH (09:00)
[2017-05-29] MEDS ORDERED: FLUCONAZOLE 200 MG/100 ML IV SCH (09:00)
--- NOTE | 2017-05-29 14:14 | CP.PCM.HP ---
History of Present Illness - History of Present Illness History of Present Illness: 51 y/o male presented in with mental status changes and UTI. Transferred to TCU fro further rx. Present on Admission - Present on Admission Any Indicators Present on Admission: No Review of Systems - Constitutional Constitutional: As Per HPI - EENT Eyes: As Per HPI - Cardiovascular Cardiovascular: As Per HPI - Respiratory Respiratory: As Per HPI - Gastrointestinal Gastrointestinal: As Per HPI - Neurological Neurological: As Per HPI - Psychiatric Psychiatric: As Per HPI Past Patient History - Infectious Disease Hx of Infectious Diseases: None - Tetanus Immunizations Tetanus Immunization: Unknown - Past Medical History & Family History Past Medical History?: Yes - Past Social History Smoking Status: Never Smoked - CARDIAC Hx Cardiac Disorders: Yes Hx Hypercholesterolemia: Yes Hx Hypertension: Yes Hx Peripheral Edema: Yes (bl le swelling no longer) - PULMONARY Hx Respiratory Disorders: Yes Hx Chronic Obstructive Pulmonary Disease (COPD): Yes Hx Pneumonia: Yes Hx Pulmonary Embolism: Yes (h/o dvt) - NEUROLOGICAL Hx Neurological Disorder: Yes Hx Dementia: Yes Hx Multiple Sclerosis: Yes Hx Seizures: Yes - HEENT Hx HEENT Problems: Yes (poor vision left eye) - RENAL Hx Chronic Kidney Disease: Yes Hx Kidney Stones: Yes - ENDOCRINE/METABOLIC Hx Endocrine Disorders: No - HEMATOLOGICAL/ONCOLOGICAL Hx Blood Disorders: Yes Hx Anemia: Yes - INTEGUMENTARY Hx Dermatological Problems: No - MUSCULOSKELETAL/RHEUMATOLOGICAL Hx Musculoskeletal Disorders: Yes Hx Arthritis: Yes Hx Back Pain: Yes Hx Falls: Yes - GASTROINTESTINAL Hx Gastrointestinal Disorders: Yes (constipation) - GENITOURINARY/GYNECOLOGICAL Hx Genitourinary Disorders: Yes Hx Incontinence: Yes Hx Prostate Problems: Yes Hx Urinary Tract Infection: Yes - PSYCHIATRIC Hx Psychophysiologic Disorder: Yes Hx Anxiety: Yes Hx Depression: Yes Hx Substance Use: No - SURGICAL HISTORY Hx Surgeries: Yes Other/Comment: cysto with removal of stent 05/19/16- kidney stones - ANESTHESIA Hx Anesthesia: Yes Hx Anesthesia Reactions: No Hx Malignant Hyperthermia: No Meds Allergies/Adverse Reactions: Allergies Allergy/AdvReac Type Severity Reaction Status Date / Time cefazolin Allergy RASH, Verified 05/28/17 19:00 ITCHINESS Physical Exam - Constitutional Appears: Confused, Chronically Ill - Head Exam Head Exam: ATRAUMATIC, NORMAL INSPECTION, NORMOCEPHALIC - Eye Exam Eye Exam: Normal appearance - ENT Exam ENT Exam: Mucous Membranes Moist - Neck Exam Neck exam: Positive for: Full Rom - Respiratory Exam Respiratory Exam: Clear to Auscultation Bilateral - Cardiovascular Exam Cardiovascular Exam: REGULAR RHYTHM, +S1, +S2 - GI/Abdominal Exam GI & Abdominal Exam: Normal Bowel Sounds, Soft - Neurological Exam Neurological exam: Altered - Psychiatric Exam Psychiatric exam: Normal Affect - Skin Skin Exam: Normal Color Results - Vital Signs Recent Vital Signs: Last Vital Signs Temp 97.5 F L 05/29/17 07:59 Pulse 94 H 05/29/17 07:59 Resp 20 05/29/17 07:59 BP 123/67 05/29/17 07:59 Pulse Ox 96 05/29/17 07:59 Assessment & Plan (1) DVT prophylaxis Status: Acute (2) Delirium due to general medical condition Status: Acute (3) Recurrent seizures Status: Chronic (4) UTI (urinary tract infection) Status: Acute (5) Anxiety Status: Chronic Priority: Medium (6) Depression Status: Chronic Priority: Medium (7) Multiple sclerosis Status: Chronic (8) Debility Status: Chronic - Assessment and Plan (Free Text) Plan: As per orders.
[2017-05-30] MEDS: Aztreonam 2 GM in Sodium Chloride 0.9% 100 ML IVPB SCH ×2 (05:00→16:41)
[2017-05-30 08:06] LABS: HEMATOCRIT 36.7 % (35.0-51.0); MEAN CELL VOLUME 85.1 fl (80.0-94.0); MEAN CORPUSCULAR HEMOGLOBIN 28.9 pg (27.0-31.0); MEAN CORPUSCULAR HGB CONC 33.9 g/dL (33.0-37.0); RED CELL DISTRIBUTION WIDTH 15.5 % (11.5-14.5); WHITE BLOOD COUNT 8.4 K/uL (4.8-10.8)
[2017-05-30 08:15] LABS: BLOOD UREA NITROGEN 15 mg/dl (9-20); CALCIUM 9.1 mg/dL (8.4-10.2); CARBON DIOXIDE 27 mmol/L (22-30); CHLORIDE 105 mmol/L (98-107); GFR AFRICAN-AMERICAN > 60; GLUCOSE,RANDOM 101 mg/dL (75-110); POTASSIUM 4.5 MMOL/L (3.6-5.0); SODIUM 143 mmol/l (132-148)
[2017-05-30] MEDS: Lactobacillus Acidophilus 500 MU Cap PO SCH ×2 (08:48→16:41)
[2017-05-30] MEDS: Fluconazole IV 200mg/100 ml NS 100 ML IVPB SCH (08:48)
[2017-05-30] MEDS: Enoxaparin 40 mg Syringe SC SCH (08:49)
--- NOTE | 2017-05-30 12:43 | CP.PCM.PN ---
Subjective - Date & Time of Evaluation Date of Evaluation: 05/30/17 Time of Evaluation: 12:43 - Subjective Subjective: Patient still anxious at times not in distress. Objective - Vital Signs/Intake and Output Vital Signs (last 24 hours): Temp Pulse Resp BP Pulse Ox 97.1 F L 90 20 120/43 L 96 05/30/17 08:17 11 08:17 11 08:17 05/30/17 08:17 05/30/17 08:17 - Medications Medications: Current Medications Acetaminophen (Tylenol 325mg Tab) 650 mg PO Q6 PRN PRN Reason: Fever >100.4 F Baclofen (Lioresal) 20 mg PO TID [facility] Last Admin: 05/30/17 12:23 Dose: 20 mg Enoxaparin Sodium (Lovenox) 40 mg SC DAILY [facility] PRN Reason: Protocol Last Admin: 05/30/17 08:49 Dose: 40 mg Fentanyl (Duragesic) 1 patch TD Q72 [facility] PRN Reason: Protocol Last Admin: 05/29/17 08:34 Dose: 1 patch Home Med (Dimethyl Fumarate [Tecfidera]) 240 mg PO BID [facility] Last Admin: 05/30/17 08:48 Dose: 240 mg Aztreonam 2 gm/ Sodium (Chloride) 100 mls @ 100 mls/hr IVPB Q12@0500,1700 [facility] Last Admin: 05/30/17 05:00 Dose: 100 mls/hr Fluconazole (Diflucan Iv 200 Mg/100 Ml Ns) 100 mls @ 100 mls/hr IVPB DAILY [facility] Last Admin: 05/30/17 08:48 Dose: 100 mls/hr Lactobacillus Acidophilus (Bacid Acidophilus) 1 cap PO BID [facility] Last Admin: 05/30/17 08:48 Dose: 1 cap Lamotrigine (Lamictal) 200 mg PO BID [facility] Last Admin: 05/30/17 08:48 Dose: 200 mg Levetiracetam (Keppra) 1,000 mg PO TID [facility] Last Admin: 05/30/17 12:23 Dose: 1,000 mg Quetiapine Fumarate (Seroquel) 50 mg PO DAILY [facility] Last Admin: 05/30/17 08:49 Dose: 50 mg Tamsulosin HCl (Flomax) 0.4 mg PO DAILY [facility] Last Admin: 05/30/17 08:48 Dose: 0.4 mg - Labs Labs: 05/30/17 07:30 05/30/17 07:30 - Constitutional Appears: Confused, Chronically Ill - Head Exam Head Exam: ATRAUMATIC, NORMAL INSPECTION, NORMOCEPHALIC - Eye Exam Eye Exam: Normal appearance - ENT Exam ENT Exam: Mucous Membranes Moist - Neck Exam Neck Exam: Full ROM - Respiratory Exam Respiratory Exam: Clear to Ausculation Bilateral - Cardiovascular Exam Cardiovascular Exam: REGULAR RHYTHM, +S1, +S2 - GI/Abdominal Exam GI & Abdominal Exam: Soft, Normal Bowel Sounds - Neurological Exam Neurological Exam: Altered, Awake - Psychiatric Exam Psychiatric exam: Anxious - Skin Skin Exam: Normal Color Assessment and Plan (1) DVT prophylaxis Status: Acute (2) Delirium due to general medical condition Status: Acute (3) Recurrent seizures Status: Chronic (4) UTI (urinary tract infection) Status: Acute (5) Anxiety Status: Chronic (6) Depression Status: Chronic (7) Multiple sclerosis Status: Chronic (8) Debility Status: Chronic - Assessment and Plan (Free Text) Plan: Continue present rx.
--- NOTE | 2017-05-30 12:46 | CP.PCM.CON ---
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 admitted to TCU s/p urosepsis in denies fever / chills alert but confused Review of Systems - Review of Systems Systems not reviewed;Unavailable: Altered Mental Status - Constitutional Constitutional: As Per HPI - EENT Eyes: absent: As Per HPI, Blind Spots, Blurred Vision, Change in Vision, Decreased Night Vision, Diplopia, Discharge, Dry Eye, Exophthalmos, Floaters, Irritation, Itchy Eyes, Loss of Peripheral Vision, Pain, Photophobia, Requires Corrective Lenses, Sees Flashes, Spots in Vision, Tunnel Vision, Other Visual Disturbances, Loss of Vision, Other Ears: absent: As Per HPI, Decreased Hearing, Ear Discharge, Ear Pain, Tinnitus, Abnormal Hearing, Disequilibrium, Dizziness, Other Nose/Mouth/Throat: absent: As Per HPI, Epistaxis, Nasal Congestion, Nasal Discharge, Nasal Obstruction, Nasal Trauma, Nose Pain, Post Nasal Drip, Sinus Pain, Sinus Pressure, Bleeding Gums, Change in Voice, Dental Pain, Dry Mouth, Dysphagia, Halitosis, Hoarsness, Lip Swelling, Mouth Lesions, Mouth Pain, Odynophagia, Sore Throat, Throat Swelling, Tongue Swelling, Facial Pain, Neck Pain, Neck Mass, Other - Cardiovascular Cardiovascular: absent: As Per HPI, Acrocyanosis, Chest Pain, Chest Pain at Rest , Chest Pain with Activity, Claudication, Diaphoresis, Dyspnea, Dyspnea on Exertion, Edema, Irregular Heart Rhythm, Pain Radiating to Arm/Neck/Jaw, Leg Edema, Leg Ulcers, Lightheadedness, Orthopnea, Palpitations, Paroxysmal Nocturnal Dyspnea, Pedal Edema, Radiating Pain, Rapid Heart Rate, Slow Heart Rate, Syncope, Other - Respiratory Respiratory: absent: As Per HPI, Cough, Dyspnea, Hemoptysis, Dyspnea on Exertion , Wheezing, Snoring, Stridor, Pain on Inspiration, Chest Congestion, Excessive Mucous Production, Change in Mucous Color, Pain with Coughing, Other - Gastrointestinal Gastrointestinal: absent: As Per HPI, Abdominal Pain, Belching, Bloating, Change in Bowel Habits, Change in Stool Character, Coffee Ground Emesis, Constipation, Cramping, Diarrhea, Dyspepsia, Dysphagia, Early Satiety, Excessive Flatus, Fecal Incontinence, Heartburn, Hematemesis, Hematochezia, Loose Stools, Melena, Nausea, Odynophagia, Temesmus, Vomiting, Other - Genitourinary Genitourinary: As Per HPI - Musculoskeletal Musculoskeletal: absent: As Per HPI, Abnormal Gait, Arthralgias, Atrophy, Back Pain, Deformity, Joint Swelling, Limited Range of Motion, Loss of Height, Muscle Cramps, Muscle Weakness, Myalgias, Neck Pain, Numbness, Radiating Pain into Limb, Stiffness, Tingling, Other - Integumentary Integumentary: absent: As Per HPI, Acne, Alopecia, Bleeding Lesions, Change in Hair, Change in Nails, Change in Pigmentation, Changing Lesions, Dry Skin, Erythema, Furuncle, Hirsutism, Lesions, New Lesions, Non-Healing Lesions, Photosensitivity, Pruritus, Rash, Skin Pain, Skin Ulcer, Sores, Striae, Swelling , Unusual Bruising, Wounds, Jaundice, Other - Neurological Neurological: As Per HPI, Convulsions - Psychiatric Psychiatric: absent: As Per HPI, Abnormal Sleep Pattern, Anhedonia, Anxiety, Auditory Hallucinations, Behavioral Changes, Change in Appetite, Change in Libido, Confusion, Depression, Difficulty Concentrating, Hallucinations, Homicidal Ideation, Hopelessness, Irritability, Memory Loss, Mood Swings, Panic Attacks, Paranoia, Suicidal Ideation, Visual Hallucinations, Tactile Hallucinations, Other - Endocrine Endocrine: absent: As Per HPI, Change in Body Appearance, Change in Libido, Cold Intolorance, Deepening of Voice, Excessive Sweating, Fatigue, Flushing, Heat Intolorance, Increase in Ring/Shoe/Hat Size, Palpitations, Polydipsia, Polyphagia, Polyuria, Other - Hematologic/Lymphatic Hematologic: absent: As Per HPI, Easy Bleeding, Easy Bruising, Lymphadenopathy, Other Past Patient History - Infectious Disease Hx of Infectious Diseases: None - Tetanus Immunizations Tetanus Immunization: Unknown - Past Medical History & Family History Past Medical History?: Yes - Past Social History Smoking Status: Never Smoked - CARDIAC Hx Cardiac Disorders: Yes Hx Hypercholesterolemia: Yes Hx Hypertension: Yes Hx Peripheral Edema: Yes (bl le swelling no longer) - PULMONARY Hx Respiratory Disorders: Yes Hx Chronic Obstructive Pulmonary Disease (COPD): Yes Hx Pneumonia: Yes Hx Pulmonary Embolism: Yes (h/o dvt) - NEUROLOGICAL Hx Neurological Disorder: Yes Hx Dementia: Yes Hx Multiple Sclerosis: Yes Hx Seizures: Yes - HEENT Hx HEENT Problems: Yes (poor vision left eye) - RENAL Hx Chronic Kidney Disease: Yes Hx Kidney Stones: Yes - ENDOCRINE/METABOLIC Hx Endocrine Disorders: No - HEMATOLOGICAL/ONCOLOGICAL Hx Blood Disorders: Yes Hx Anemia: Yes - INTEGUMENTARY Hx Dermatological Problems: No - MUSCULOSKELETAL/RHEUMATOLOGICAL Hx Musculoskeletal Disorders: Yes Hx Arthritis: Yes Hx Back Pain: Yes Hx Falls: Yes - GASTROINTESTINAL Hx Gastrointestinal Disorders: Yes (constipation) - GENITOURINARY/GYNECOLOGICAL Hx Genitourinary Disorders: Yes Hx Incontinence: Yes Hx Prostate Problems: Yes Hx Urinary Tract Infection: Yes - PSYCHIATRIC Hx Psychophysiologic Disorder: Yes Hx Anxiety: Yes Hx Depression: Yes Hx Substance Use: No - SURGICAL HISTORY Hx Surgeries: Yes Other/Comment: cysto with removal of stent 05/19/16- kidney stones - ANESTHESIA Hx Anesthesia: Yes Hx Anesthesia Reactions: No Hx Malignant Hyperthermia: No Meds Allergies/Adverse Reactions: Allergies Allergy/AdvReac Type Severity Reaction Status Date / Time cefazolin Allergy RASH, Verified 05/28/17 19:00 ITCHINESS - Medications Medications: Current Medications Acetaminophen (Tylenol 325mg Tab) 650 mg PO Q6 PRN PRN Reason: Fever >100.4 F Baclofen (Lioresal) 20 mg PO TID [facility] Last Admin: 05/30/17 12:23 Dose: 20 mg Enoxaparin Sodium (Lovenox) 40 mg SC DAILY [facility] PRN Reason: Protocol Last Admin: 05/30/17 08:49 Dose: 40 mg Fentanyl (Duragesic) 1 patch TD Q72 [facility] PRN Reason: Protocol Last Admin: 05/29/17 08:34 Dose: 1 patch Home Med (Dimethyl Fumarate [Tecfidera]) 240 mg PO BID [facility] Last Admin: 05/30/17 08:48 Dose: 240 mg Aztreonam 2 gm/ Sodium (Chloride) 100 mls @ 100 mls/hr IVPB Q12@0500,1700 [facility] Last Admin: 05/30/17 05:00 Dose: 100 mls/hr Fluconazole (Diflucan Iv 200 Mg/100 Ml Ns) 100 mls @ 100 mls/hr IVPB DAILY [facility] Last Admin: 05/30/17 08:48 Dose: 100 mls/hr Lactobacillus Acidophilus (Bacid Acidophilus) 1 cap PO BID [facility] Last Admin: 05/30/17 08:48 Dose: 1 cap Lamotrigine (Lamictal) 200 mg PO BID [facility] Last Admin: 05/30/17 08:48 Dose: 200 mg Levetiracetam (Keppra) 1,000 mg PO TID [facility] Last Admin: 05/30/17 12:23 Dose: 1,000 mg Quetiapine Fumarate (Seroquel) 50 mg PO DAILY [facility] Last Admin: 05/30/17 08:49 Dose: 50 mg Tamsulosin HCl (Flomax) 0.4 mg PO DAILY [facility] Last Admin: 05/30/17 08:48 Dose: 0.4 mg Physical Exam - Constitutional Appears: Non-toxic, Chronically Ill - Head Exam Head Exam: NORMOCEPHALIC - Eye Exam Eye Exam: PERRL. absent: Scleral icterus - ENT Exam ENT Exam: Mucous Membranes Dry, Normal External Ear Exam - Neck Exam Neck exam: Negative for: Lymphadenopathy - Respiratory Exam Respiratory Exam: Decreased Breath Sounds - Cardiovascular Exam Cardiovascular Exam: REGULAR RHYTHM - GI/Abdominal Exam GI & Abdominal Exam: Diminished Bowel Sounds, Soft. absent: Tenderness - Rectal Exam Rectal Exam: Deferred - Exam Exam: NORMAL INSPECTION - Extremities Exam Extremities exam: Positive for: pedal pulses present. Negative for: calf tenderness, pedal edema, tenderness - Back Exam Back exam: absent: CVA tenderness (L), CVA tenderness (R) - Neurological Exam Neurological exam: Alert, Altered, CN II-XII Intact, Motor Sensory Deficit - Psychiatric Exam Psychiatric exam: Anxious - Skin Skin Exam: Dry Results - Vital Signs Recent Vital Signs: Last Vital Signs Temp 97.1 F L 05/30/17 08:17 Pulse 90 05/30/17 08:17 Resp 20 05/30/17 08:17 BP 120/43 L 05/30/17 08:17 Pulse Ox 96 05/30/17 08:17 - Labs Result Diagrams: 05/30/17 07:30 05/30/17 07:30 Labs: Laboratory Results - last 24 hr 05/30/17 05/30/17 07:30 07:30 WBC 8.4 RBC 4.31 L Hgb 12.4 Hct 36.7 MCV 85.1 MCH 28.9 MCHC 33.9 RDW 15.5 H Plt Count 319 Sodium 143 Potassium 4.5 Chloride 105 Carbon Dioxide 27 Anion Gap 15 BUN 15 Creatinine 0.7 L Est GFR ( Amer) > 60 Est GFR (Non-Af Amer) > 60 Random Glucose 101 Calcium 9.1 Assessment & Plan (1) Debility Status: Chronic - Assessment and Plan (Free Text) Assessment: hx of recurrent UTI gen debility cont rx x 7 days
[2017-05-31] MEDS: Aztreonam 2 GM in Sodium Chloride 0.9% 100 ML IVPB SCH ×2 (04:06→16:36)
[2017-05-31] MEDS: Lactobacillus Acidophilus 500 MU Cap PO SCH ×2 (09:03→16:36)
[2017-05-31] MEDS: Fluconazole IV 200mg/100 ml NS 100 ML IVPB SCH (09:03)
[2017-05-31] MEDS: Enoxaparin 40 mg Syringe SC SCH (09:04)
--- NOTE | 2017-05-31 12:06 | CP.PCM.PN ---
Subjective - Date & Time of Evaluation Date of Evaluation: 05/31/17 Time of Evaluation: 13:58 - Subjective Subjective: At times anxious Objective - Vital Signs/Intake and Output Vital Signs (last 24 hours): Temp Pulse Resp BP Pulse Ox 97.9 F 93 H 20 97/53 L 97 05/31/17 08:06 05/31/17 08:06 05/31/17 08:06 05/31/17 08:06 05/31/17 08:06 - Medications Medications: Current Medications Acetaminophen (Tylenol 325mg Tab) 650 mg PO Q6 PRN PRN Reason: Fever >100.4 F Baclofen (Lioresal) 20 mg PO TID [facility] Last Admin: 05/31/17 12:01 Dose: 20 mg Enoxaparin Sodium (Lovenox) 40 mg SC DAILY [facility] PRN Reason: Protocol Last Admin: 05/31/17 09:04 Dose: 40 mg Fentanyl (Duragesic) 1 patch TD Q72 [facility] PRN Reason: Protocol Last Admin: 05/29/17 08:34 Dose: 1 patch Home Med (Dimethyl Fumarate [Tecfidera]) 240 mg PO BID [facility] Last Admin: 05/31/17 09:04 Dose: 240 mg Aztreonam 2 gm/ Sodium (Chloride) 100 mls @ 100 mls/hr IVPB Q12@0500,1700 [facility] Last Admin: 05/31/17 04:06 Dose: 100 mls/hr Fluconazole (Diflucan Iv 200 Mg/100 Ml Ns) 100 mls @ 100 mls/hr IVPB DAILY [facility] Last Admin: 05/31/17 09:03 Dose: 100 mls/hr Lactobacillus Acidophilus (Bacid Acidophilus) 1 cap PO BID [facility] Last Admin: 05/31/17 09:03 Dose: 1 cap Lamotrigine (Lamictal) 200 mg PO BID [facility] Last Admin: 05/31/17 09:04 Dose: 200 mg Levetiracetam (Keppra) 1,000 mg PO TID [facility] Last Admin: 05/31/17 12:01 Dose: 1,000 mg Quetiapine Fumarate (Seroquel) 100 mg PO HS [facility] Tamsulosin HCl (Flomax) 0.4 mg PO DAILY [facility] Last Admin: 05/31/17 09:04 Dose: 0.4 mg - Labs Labs: 05/30/17 07:30 11/08/17 07:30 - Constitutional Appears: Non-toxic - Head Exam Head Exam: ATRAUMATIC, NORMAL INSPECTION, NORMOCEPHALIC - Eye Exam Eye Exam: Normal appearance - ENT Exam ENT Exam: Mucous Membranes Moist - Neck Exam Neck Exam: Full ROM - Respiratory Exam Respiratory Exam: Clear to Ausculation Bilateral - Cardiovascular Exam Cardiovascular Exam: REGULAR RHYTHM, +S1, +S2 - GI/Abdominal Exam GI & Abdominal Exam: Soft, Normal Bowel Sounds - Neurological Exam Neurological Exam: Altered Assessment and Plan (1) DVT prophylaxis Status: Acute (2) Delirium due to general medical condition Status: Acute (3) Recurrent seizures Status: Chronic (4) UTI (urinary tract infection) Status: Acute (5) Anxiety Status: Chronic (6) Depression Status: Chronic (7) Multiple sclerosis Status: Chronic (8) Debility Status: Chronic
[2017-06-01] MEDS: Aztreonam 2 GM in Sodium Chloride 0.9% 100 ML IVPB SCH ×2 (05:45→17:13)
[2017-06-01] MEDS: Fluconazole IV 200mg/100 ml NS 100 ML IVPB SCH (09:45)
[2017-06-01] MEDS: Enoxaparin 40 mg Syringe SC SCH ×2 (09:45→17:07)
[2017-06-01] MEDS: Lactobacillus Acidophilus 500 MU Cap PO SCH ×2 (09:46→17:13)
--- NOTE | 2017-06-01 11:59 | CP.PCM.PN ---
Subjective - Date & Time of Evaluation Date of Evaluation: 06/01/17 Time of Evaluation: 12:00 - Subjective Subjective: Patient with chills. Not in distress Objective - Vital Signs/Intake and Output Vital Signs (last 24 hours): Temp Pulse Resp BP Pulse Ox 97.0 F L 89 20 102/54 L 94 L 06/01/17 08:17 06/01/17 08:17 06/01/17 08:17 06/01/17 08:17 06/01/17 08:17 - Medications Medications: Current Medications Acetaminophen (Tylenol 325mg Tab) 650 mg PO Q6 PRN PRN Reason: Fever >100.4 F Acetaminophen (Tylenol 325mg Tab) 650 mg PO STAT [facility] Stop: 06/01/17 11:57 Baclofen (Lioresal) 20 mg PO TID [facility] Last Admin: 06/01/17 09:43 Dose: 20 mg Docusate Sodium (Colace) 100 mg PO BID [facility] Last Admin: 06/01/17 09:44 Dose: 100 mg Home Med (Dimethyl Fumarate [Tecfidera]) 240 mg PO BID [facility] Last Admin: 06/01/17 09:44 Dose: 240 mg Aztreonam 2 gm/ Sodium (Chloride) 100 mls @ 100 mls/hr IVPB Q12@0500,1700 [facility] Last Admin: 06/01/17 05:45 Dose: 100 mls/hr Fluconazole (Diflucan Iv 200 Mg/100 Ml Ns) 100 mls @ 100 mls/hr IVPB DAILY [facility] Last Admin: 05/31/17 09:03 Dose: 100 mls/hr Lactobacillus Acidophilus (Bacid Acidophilus) 1 cap PO BID [facility] Last Admin: 06/01/17 09:46 Dose: 1 cap Lamotrigine (Lamictal) 200 mg PO BID [facility] Last Admin: 06/01/17 09:43 Dose: 200 mg Levetiracetam (Keppra) 1,000 mg PO TID [facility] Last Admin: 06/01/17 09:44 Dose: 1,000 mg Quetiapine Fumarate (Seroquel) 100 mg PO HS [facility] Last Admin: 05/31/17 21:28 Dose: 100 mg Tamsulosin HCl (Flomax) 0.4 mg PO DAILY [facility] Last Admin: 06/01/17 09:43 Dose: 0.4 mg - Labs Labs: 05/30/17 07:30 05/30/17 07:30 - Constitutional Appears: Confused, Chronically Ill - Head Exam Head Exam: ATRAUMATIC, NORMAL INSPECTION, NORMOCEPHALIC - Eye Exam Eye Exam: Normal appearance - ENT Exam ENT Exam: Mucous Membranes Moist - Neck Exam Neck Exam: Full ROM - Respiratory Exam Respiratory Exam: Clear to Ausculation Bilateral - Cardiovascular Exam Cardiovascular Exam: REGULAR RHYTHM, +S1, +S2 - GI/Abdominal Exam GI & Abdominal Exam: Soft, Normal Bowel Sounds - Neurological Exam Neurological Exam: Altered, Awake - Psychiatric Exam Psychiatric exam: Normal Affect - Skin Skin Exam: Normal Color Assessment and Plan (1) DVT prophylaxis Status: Acute (2) Delirium due to general medical condition Status: Acute (3) Recurrent seizures Status: Chronic (4) UTI (urinary tract infection) Status: Acute (5) Anxiety Status: Chronic (6) Depression Status: Chronic (7) Multiple sclerosis Status: Chronic (8) Debility Status: Chronic (9) Fever Status: Acute (10) Fever and chills Status: Acute - Assessment and Plan (Free Text) Plan: Will follow septic w/u
[2017-06-01 12:56] LABS: ALB/GLOB RATIO 1.3 (1.0-2.1); ALKALINE PHOSPHATASE 83 U/L (38-126); ALT/SGPT 26 U/L (21-72); AST/SGOT 14 U/L (17-59); BILIRUBIN,TOTAL 0.2 mg/dl (0.2-1.3); BLOOD UREA NITROGEN 12 mg/dl (9-20); CALCIUM 9.6 mg/dL (8.4-10.2); CARBON DIOXIDE 26 mmol/L (22-30); CHLORIDE 104 mmol/L (98-107); GFR AFRICAN-AMERICAN > 60; GLUCOSE,RANDOM 115 mg/dL (75-110); POTASSIUM 4.4 MMOL/L (3.6-5.0); SODIUM 143 mmol/l (132-148)
[2017-06-01 13:03] LABS: BASO # 0.1 K/uL (0.0-0.2); BASO % 0.5 % (0.0-2.0); EOS # 0.4 K/uL (0.0-0.7); EOS % 2.3 % (0.0-4.0); LYMPH # 1.7 K/uL (1.0-4.3); LYMPH % 10.2 % (20.0-40.0); MEAN CELL VOLUME 88.2 fl (80.0-94.0); MEAN CORPUSCULAR HEMOGLOBIN 28.1 pg (27.0-31.0); MEAN CORPUSCULAR HGB CONC 31.9 g/dL (33.0-37.0); MONO # 1.5 K/uL (0.0-0.8); MONO % 9.4 % (0.0-10.0); NEUT # 12.7 K/uL (1.8-7.0); NEUT % 77.6 % (50.0-75.0); RED CELL DISTRIBUTION WIDTH 15.8 % (11.5-14.5); WHITE BLOOD COUNT 16.4 K/uL (4.8-10.8)
--- NOTE | 2017-06-01 13:58 | RAD ---
HISTORY: fever COMPARISON: Comparison chest dated 02/11/2017 TECHNIQUE: Chest PA and lateral FINDINGS: LUNGS: No acute infiltrates. PLEURA: No significant pleural effusion identified. No pneumothorax apparent. CARDIOVASCULAR: Aorta is slightly ectatic and uncoiled. Heart size within range of normal. OSSEOUS STRUCTURES: No acute infiltrates VISUALIZED UPPER ABDOMEN: Normal. OTHER FINDINGS: None. IMPRESSION: No active disease.
--- NOTE | 2017-06-01 14:11 | CP.PCM.PN ---
Subjective - Date & Time of Evaluation Date of Evaluation: 06/01/17 Time of Evaluation: 08:00 - Subjective Subjective: unexplained leukocytosis no cough or abd pain no diiarrhea Objective - Vital Signs/Intake and Output Vital Signs (last 24 hours): Temp Pulse Resp BP Pulse Ox 97.0 F L 89 20 102/54 L 94 L 06/01/17 08:17 06/01/17 08:17 06/01/17 08:17 06/01/17 08:17 06/01/17 08:17 - Medications Medications: Current Medications Acetaminophen (Tylenol 325mg Tab) 650 mg PO Q6 PRN PRN Reason: Fever >100.4 F Baclofen (Lioresal) 20 mg PO TID [facility] Last Admin: 06/01/17 13:01 Dose: 20 mg Docusate Sodium (Colace) 100 mg PO BID [facility] Last Admin: 06/01/17 09:44 Dose: 100 mg Enoxaparin Sodium (Lovenox) 40 mg SC DAILY [facility] PRN Reason: Protocol Fentanyl (Duragesic) 1 patch TD Q3D [facility] PRN Reason: Protocol Home Med (Dimethyl Fumarate [Tecfidera]) 240 mg PO BID [facility] Last Admin: 06/01/17 09:44 Dose: 240 mg Aztreonam 2 gm/ Sodium (Chloride) 100 mls @ 100 mls/hr IVPB Q12@0500,1700 [facility] Last Admin: 06/01/17 05:45 Dose: 100 mls/hr Fluconazole (Diflucan Iv 200 Mg/100 Ml Ns) 100 mls @ 100 mls/hr IVPB DAILY [facility] Last Admin: 06/01/17 09:45 Dose: 100 mls/hr Lactobacillus Acidophilus (Bacid Acidophilus) 1 cap PO BID [facility] Last Admin: 06/01/17 09:46 Dose: 1 cap Lamotrigine (Lamictal) 200 mg PO BID [facility] Last Admin: 06/01/17 09:43 Dose: 200 mg Levetiracetam (Keppra) 1,000 mg PO TID [facility] Last Admin: 06/01/17 13:02 Dose: 1,000 mg Quetiapine Fumarate (Seroquel) 100 mg PO HS [facility] Last Admin: 05/31/17 21:28 Dose: 100 mg Tamsulosin HCl (Flomax) 0.4 mg PO DAILY [facility] Last Admin: 06/01/17 09:43 Dose: 0.4 mg - Labs Labs: 06/01/17 12:30 06/01/17 12:30 - Constitutional Appears: Non-toxic, Chronically Ill - Head Exam Head Exam: NORMOCEPHALIC - Eye Exam Eye Exam: PERRL - ENT Exam ENT Exam: Mucous Membranes Dry - Neck Exam Neck Exam: absent: Lymphadenopathy - Respiratory Exam Respiratory Exam: Decreased Breath Sounds - Cardiovascular Exam Cardiovascular Exam: REGULAR RHYTHM - GI/Abdominal Exam GI & Abdominal Exam: Distended, Soft - Rectal Exam Rectal Exam: Deferred - Exam Exam: NORMAL INSPECTION - Extremities Exam Extremities Exam: absent: Pedal Edema - Back Exam Back Exam: absent: CVA tenderness (L), CVA tenderness (R) - Neurological Exam Neurological Exam: Alert, Awake, Oriented x3 - Psychiatric Exam Psychiatric exam: Depressed - Skin Skin Exam: Dry Assessment and Plan (1) Debility Status: Chronic (2) Fever and chills Status: Acute - Assessment and Plan (Free Text) Assessment: repeat septic work up Urine cultures stat genta given
[2017-06-01] MEDS: Gentamicin 60mg/50ml NS 60 MG/50 ML BAG IVPB SCH (17:12)
[2017-06-01 20:59] LABS: RBC URINE 2 /hpf (0-3); URINE BILIRUBIN NEGATIVE (NEGATIVE); URINE BLOOD NEGATIVE (NEGATIVE); URINE COLOR STRAW (YELLOW); URINE GLUCOSE (UA) NEG (Normal); URINE KETONE NEGATIVE (NEGATIVE); URINE LEUKOCYTE ESTERASE NEG Leu/uL (Negative); URINE PROTEIN NEGATIVE (NEGATIVE); URINE UROBILINOGEN 0.2-1.0 mg/dL (0.2-1.0); WBC URINE 3 /hpf (0-5)
[2017-06-02] MEDS: Aztreonam 2 GM in Sodium Chloride 0.9% 100 ML IVPB SCH ×2 (04:28→17:02)
[2017-06-02] MEDS: Gentamicin 60mg/50ml NS 60 MG/50 ML BAG IVPB SCH ×2 (05:25→16:11)
[2017-06-02 08:55] LABS: BASO # 0.1 K/uL (0.0-0.2); BASO % 0.7 % (0.0-2.0); EOS # 0.6 K/uL (0.0-0.7); EOS % 6.3 % (0.0-4.0); HEMATOCRIT 38.1 % (35.0-51.0); LYMPH % 34.2 % (20.0-40.0); MEAN CELL VOLUME 86.9 fl (80.0-94.0); MEAN CORPUSCULAR HEMOGLOBIN 29.2 pg (27.0-31.0); MEAN CORPUSCULAR HGB CONC 33.6 g/dL (33.0-37.0); MEAN PLATELET VOLUME 7.3 fl (7.2-11.7); MONO # 0.9 K/uL (0.0-0.8); MONO % 9.9 % (0.0-10.0); NEUT # 4.3 K/uL (1.8-7.0); NEUT % 48.9 % (50.0-75.0); NRBC % 0.1 % (0.0-0.0); RED CELL DISTRIBUTION WIDTH 15.6 % (11.5-14.5); WHITE BLOOD COUNT 8.9 K/uL (4.8-10.8)
[2017-06-02 09:08] LABS: BLOOD UREA NITROGEN 14 mg/dl (9-20); CALCIUM 9.1 mg/dL (8.4-10.2); CARBON DIOXIDE 28 mmol/L (22-30); CHLORIDE 104 mmol/L (98-107); GFR AFRICAN-AMERICAN > 60; GLUCOSE,RANDOM 124 mg/dL (75-110); SODIUM 143 mmol/l (132-148)
[2017-06-02] MEDS: Lactobacillus Acidophilus 500 MU Cap PO SCH ×2 (09:17→16:14)
[2017-06-02] MEDS: Enoxaparin 40 mg Syringe SC SCH (09:17)
[2017-06-02] MEDS: Fluconazole IV 200mg/100 ml NS 100 ML IVPB SCH (09:22)
--- NOTE | 2017-06-02 17:57 | CP.PCM.PN ---
Subjective - Date & Time of Evaluation Date of Evaluation: 06/02/17 Time of Evaluation: 17:58 - Subjective Subjective: Patient less anxious looks comfortable WBC nl Objective - Vital Signs/Intake and Output Vital Signs (last 24 hours): Temp Pulse Resp BP Pulse Ox 97 F L 93 H 19 95/61 L 95 06/02/17 08:09 06/02/17 08:09 06/02/17 08:09 06/02/17 08:09 06/02/17 08:09 - Medications Medications: Current Medications Acetaminophen (Tylenol 325mg Tab) 650 mg PO Q6 PRN PRN Reason: Fever >100.4 F Baclofen (Lioresal) 20 mg PO TID [facility] Last Admin: 06/02/17 16:14 Dose: 20 mg Docusate Sodium (Colace) 100 mg PO BID [facility] Last Admin: 06/02/17 16:14 Dose: 100 mg Enoxaparin Sodium (Lovenox) 40 mg SC DAILY [facility] PRN Reason: Protocol Last Admin: 06/02/17 09:17 Dose: 40 mg Fentanyl (Duragesic) 1 patch TD Q3D [facility] PRN Reason: Protocol Last Admin: 06/01/17 17:13 Dose: 1 patch Home Med (Dimethyl Fumarate [Tecfidera]) 240 mg PO BID [facility] Last Admin: 06/02/17 16:14 Dose: 240 mg Aztreonam 2 gm/ Sodium (Chloride) 100 mls @ 100 mls/hr IVPB Q12@0500,1700 [facility] Last Admin: 06/02/17 17:02 Dose: 100 mls/hr Fluconazole (Diflucan Iv 200 Mg/100 Ml Ns) 100 mls @ 100 mls/hr IVPB DAILY [facility] Last Admin: 06/02/17 09:22 Dose: 100 mls/hr Gentamicin Sulfate/Sodium Chloride (Gentamicin 60mg/50ml Ns) 60 mg in 50 mls @ 50 mls/hr IVPB Q12@0500,1700 [facility] Last Admin: 06/02/17 16:11 Dose: 50 mls/hr Lactobacillus Acidophilus (Bacid Acidophilus) 1 cap PO BID [facility] Last Admin: 06/02/17 16:14 Dose: 1 cap Lamotrigine (Lamictal) 200 mg PO BID [facility] Last Admin: 06/02/17 16:14 Dose: 200 mg Levetiracetam (Keppra) 1,000 mg PO TID [facility] Last Admin: 06/02/17 16:14 Dose: 1,000 mg Quetiapine Fumarate (Seroquel) 100 mg PO HS [facility] Last Admin: 06/01/17 21:06 Dose: 100 mg Tamsulosin HCl (Flomax) 0.4 mg PO DAILY [facility] Last Admin: 06/02/17 09:20 Dose: 0.4 mg - Labs Labs: 06/02/17 08:15 06/02/17 08:15 - Constitutional Appears: Chronically Ill - Head Exam Head Exam: ATRAUMATIC, NORMAL INSPECTION, NORMOCEPHALIC - Eye Exam Eye Exam: Normal appearance - ENT Exam ENT Exam: Mucous Membranes Moist - Neck Exam Neck Exam: Full ROM - Respiratory Exam Respiratory Exam: Clear to Ausculation Bilateral - Cardiovascular Exam Cardiovascular Exam: REGULAR RHYTHM, +S1, +S2 - GI/Abdominal Exam GI & Abdominal Exam: Soft, Normal Bowel Sounds - Neurological Exam Neurological Exam: Alert, Altered, Awake - Psychiatric Exam Psychiatric exam: Anxious Assessment and Plan (1) DVT prophylaxis Status: Acute (2) Delirium due to general medical condition Status: Acute (3) Recurrent seizures Status: Chronic (4) UTI (urinary tract infection) Status: Acute (5) Anxiety Status: Chronic (6) Depression Status: Chronic (7) Multiple sclerosis Status: Chronic (8) Debility Status: Chronic (9) Fever Status: Acute (10) Fever and chills Status: Acute - Assessment and Plan (Free Text) Plan: Continue present rx
[2017-06-02 19:02] VITALS: RESP 20
[2017-06-03] MEDS: Aztreonam 2 GM in Sodium Chloride 0.9% 100 ML IVPB SCH ×2 (04:21→17:10)
[2017-06-03] MEDS: Gentamicin 60mg/50ml NS 60 MG/50 ML BAG IVPB SCH (05:31)
--- NOTE | 2017-06-03 08:45 | PCM.RRT ---
<Michaelle Garcia - Last Filed: 06/03/17 15:08> GOLD TOOLER Nurse Assessment - Situation GOLD TOOLER Responder Arrival Time: 08:13 Location: 7 U Room Number: 712 1 GOLD TOOLER Reason for Call: Chest Pain GOLD TOOLER Called By: RN - IV IV Inserted during GOLD TOOLER?: No - Respiratory Oxygen Delivery Method: Nasal Cannula Received Nebulizer Treatments: No Was the Patient Ventilated with Bag/Mask 100% O2?: No Secretions Suctioned?: No Was the Patient Intubated?: No Was the Patient Placed on a Ventilator?: No - Ventilator Settings Ventilator Respiratory Rate Settin Ventilator Tidal Volume Settin - Medication Medications Administered During GOLD TOOLER: NTG SL. Ativan 1 mg IV - Diagnostic Test Ordered EKG: Yes Chest X-Ray: No CT Scan: No - Stat Labs Ordered GOLD TOOLER Stat Labs Ordered: CBC, TROPONIN GOLD TOOLER Other Labs Ordered: cmp, Mg, Phos,folate, Vit B12 CPR started during GOLD TOOLER?: No - Vital Signs Vital Signs: BP 129/81 HR 84 RR 20 O2 sat 95% - Abram Coma Scale Coma Scale Eye Opening: Spontaneous Coma Scale Motor: Obeys Commands Movement Coma Scale Verbal: Oriented Coma Scale Total: 15 - Time GOLD TOOLER Ended Time GOLD TOOLER Ended: 08:44 - Vital Signs at end of GOLD TOOLER Vital Signs at end of GOLD TOOLER: BP 108/69 HR 86 RR 18 O2 95% - Recommendations GOLD TOOLER Level of Care Recommendations: Remain in current setting I.Reason for GOLD TOOLER - A) Acute Change in Patient: (Select all that apply): Staff member or family is worried about patient - Neurological Status (Select all that apply): Alert, Follows Commands - Respiratory Oxygen Delivery Method: Nasal Cannula @L/min (2L/min) - Constitutional Appears: Combative, Agitated - Head Head Exam: NORMAL INSPECTION - Eyes Eye Exam: EOMI, PERRL - Respiratory Exam Respiratory Exam: Clear to Ausculation Bilateral. absent: Decreased Breath Sounds - Cardiovascular Exam Cardiovascular Exam: REGULAR RHYTHM, +S1, +S2 - GI/Abdominal Exam GI & Abdominal Exam: Soft, Normal Bowel Sounds. absent: Tenderness - Neurological Exam Neurological Exam: Alert, Awake, Oriented x3 Plan - Assessment of Findings&Treatment Plan GOLD TOOLER called by RN for chest pain and agitation. 47 yo M patient with PMH of seizures, multiple sclerosis, anxiety and depression with chest pain and and agitation. He is combative and very anxious lying in bed. Patient is admitted due to UTI. Afebril, denies sob, palpitations , numbness, abdominal pain or any other pain. Impression: Chest pain r/o ACS vs Anxiety. Oxygen via NC 2L/min EKG troponin cbc, cmp Mg, Phos Folate, vit B12 NTG SL Ativan 1 mg IV <NachoMonica - Last Filed: 06/08/17 09:32> GOLD TOOLER Nurse Assessment - Vital Signs Vital Signs: Rapid Response Vital Sign Blood Pressure 103/64 Pulse Rate 91 Respiratory Rate 18 Temperature 96.3 F Oxygen Saturation 92 - Vital Signs at end of GOLD TOOLER Vital Signs at end of GOLD TOOLER: Rapid Response End Vital Sign Blood Pressure 108/69 Pulse Rate 88 Respiratory Rate 18 Temperature 96.3 F O2 Sat by Pulse Oximetry 95 Attending/Attestation - Attestation I have personally seen and examined this patient.: Yes I have fully participated in the care of the patient.: Yes I have reviewed all pertinent clinical information, including history, physical exam and plan: Yes Notes (Text): 06/08/17 09:32 SEEN EXAMINED DISCUSSED WITH RESIDENT, AGREE WITH FINDINGS AND PLAN ABOVE.
[2017-06-03 08:56] LABS: BASO # 0.1 K/uL (0.0-0.2); BASO % 0.7 % (0.0-2.0); EOS # 0.7 K/uL (0.0-0.7); EOS % 8.4 % (0.0-4.0); HEMATOCRIT 37.8 % (35.0-51.0); LYMPH # 2.8 K/uL (1.0-4.3); LYMPH % 33.5 % (20.0-40.0); MEAN CORPUSCULAR HGB CONC 33.3 g/dL (33.0-37.0); MONO # 0.9 K/uL (0.0-0.8); MONO % 10.8 % (0.0-10.0); NEUT % 46.6 % (50.0-75.0); RED CELL DISTRIBUTION WIDTH 15.3 % (11.5-14.5); WHITE BLOOD COUNT 8.5 K/uL (4.8-10.8)
[2017-06-03 09:13] LABS: ALB/GLOB RATIO 1.3 (1.0-2.1); ALKALINE PHOSPHATASE 67 U/L (38-126); ALT/SGPT 34 U/L (21-72); AST/SGOT 22 U/L (17-59); BILIRUBIN,TOTAL 0.3 mg/dl (0.2-1.3); BLOOD UREA NITROGEN 14 mg/dl (9-20); CARBON DIOXIDE 28 mmol/L (22-30); CHLORIDE 105 mmol/L (98-107); GFR AFRICAN-AMERICAN > 60; GLUCOSE,RANDOM 95 mg/dL (75-110); MAGNESIUM 1.8 MG/DL (1.6-2.3); PHOSPHOROUS 3.5 mg/dl (2.5-4.5); POTASSIUM 4.4 MMOL/L (3.6-5.0); SODIUM 144 mmol/l (132-148); TOTAL PROTEIN 7.6 G/DL (6.3-8.2)
[2017-06-03] MEDS: Fluconazole IV 200mg/100 ml NS 100 ML IVPB SCH (09:55)
[2017-06-03] MEDS: Enoxaparin 40 mg Syringe SC SCH (09:56)
--- NOTE | 2017-06-03 10:18 | CP.PCM.CON ---
History of Present Illness - History of Present Illness History of Present Illness: 51 year old male was seen at bedside regarding painful, elongated toenails. Patient is currently on ativan and is in and out of sleep and unable to answer many questions. Past Patient History - Infectious Disease Hx of Infectious Diseases: None - Tetanus Immunizations Tetanus Immunization: Unknown - Past Medical History & Family History Past Medical History?: Yes - Past Social History Smoking Status: Never Smoked - CARDIAC Hx Cardiac Disorders: Yes Hx Hypercholesterolemia: Yes Hx Hypertension: Yes Hx Peripheral Edema: Yes (bl le swelling no longer) - PULMONARY Hx Respiratory Disorders: Yes Hx Chronic Obstructive Pulmonary Disease (COPD): Yes Hx Pneumonia: Yes Hx Pulmonary Embolism: Yes (h/o dvt) - NEUROLOGICAL Hx Neurological Disorder: Yes Hx Dementia: Yes Hx Multiple Sclerosis: Yes Hx Seizures: Yes - HEENT Hx HEENT Problems: Yes (poor vision left eye) - RENAL Hx Chronic Kidney Disease: Yes Hx Kidney Stones: Yes - ENDOCRINE/METABOLIC Hx Endocrine Disorders: No - HEMATOLOGICAL/ONCOLOGICAL Hx Blood Disorders: Yes Hx Anemia: Yes - INTEGUMENTARY Hx Dermatological Problems: No - MUSCULOSKELETAL/RHEUMATOLOGICAL Hx Musculoskeletal Disorders: Yes Hx Arthritis: Yes Hx Back Pain: Yes Hx Falls: Yes - GASTROINTESTINAL Hx Gastrointestinal Disorders: Yes (constipation) - GENITOURINARY/GYNECOLOGICAL Hx Genitourinary Disorders: Yes Hx Incontinence: Yes Hx Prostate Problems: Yes Hx Urinary Tract Infection: Yes - PSYCHIATRIC Hx Psychophysiologic Disorder: Yes Hx Anxiety: Yes Hx Depression: Yes Hx Substance Use: No - SURGICAL HISTORY Hx Surgeries: Yes Other/Comment: cysto with removal of stent 05/19/16- kidney stones - ANESTHESIA Hx Anesthesia: Yes Hx Anesthesia Reactions: No Hx Malignant Hyperthermia: No Meds Allergies/Adverse Reactions: Allergies Allergy/AdvReac Type Severity Reaction Status Date / Time cefazolin Allergy RASH, Verified 05/28/17 19:00 ITCHINESS - Medications Medications: Current Medications Acetaminophen (Tylenol 325mg Tab) 650 mg PO Q6 PRN PRN Reason: Fever >100.4 F Baclofen (Lioresal) 20 mg PO TID [facility] Last Admin: 06/03/17 09:56 Dose: 20 mg Docusate Sodium (Colace) 100 mg PO BID [facility] Last Admin: 06/03/17 09:55 Dose: 100 mg Enoxaparin Sodium (Lovenox) 40 mg SC DAILY [facility] PRN Reason: Protocol Last Admin: 06/03/17 09:56 Dose: 40 mg Fentanyl (Duragesic) 1 patch TD Q3D [facility] PRN Reason: Protocol Last Admin: 06/01/17 17:13 Dose: 1 patch Home Med (Dimethyl Fumarate [Tecfidera]) 240 mg PO BID [facility] Last Admin: 06/03/17 09:56 Dose: 240 mg Aztreonam 2 gm/ Sodium (Chloride) 100 mls @ 100 mls/hr IVPB Q12@0500,1700 [facility] Last Admin: 06/03/17 04:21 Dose: 100 mls/hr Fluconazole (Diflucan Iv 200 Mg/100 Ml Ns) 100 mls @ 100 mls/hr IVPB DAILY [facility] Last Admin: 06/03/17 09:55 Dose: 100 mls/hr Gentamicin Sulfate/Sodium Chloride (Gentamicin 60mg/50ml Ns) 60 mg in 50 mls @ 50 mls/hr IVPB Q12@0500,1700 [facility] Last Admin: 06/03/17 05:31 Dose: 50 mls/hr Lactobacillus Acidophilus (Bacid Acidophilus) 1 cap PO BID [facility] Last Admin: 06/02/17 16:14 Dose: 1 cap Lamotrigine (Lamictal) 200 mg PO BID [facility] Last Admin: 06/03/17 09:55 Dose: 200 mg Levetiracetam (Keppra) 1,000 mg PO TID [facility] Last Admin: 06/03/17 09:55 Dose: 1,000 mg Quetiapine Fumarate (Seroquel) 100 mg PO HS [facility] Last Admin: 06/02/17 21:01 Dose: 100 mg Tamsulosin HCl (Flomax) 0.4 mg PO DAILY [facility] Last Admin: 06/03/17 09:56 Dose: 0.4 mg Physical Exam - Constitutional Appears: Non-toxic, No Acute Distress - Back Exam Additional comments: Lower extremity focused exam: Vasc: Dp and Pt pulses palpable 1/4 b/l. CFT <4 seconds to all digits b/l. Skin temperature warm to cool from proximal to distal b/l. Neuro: Gross sensation diminished b/l Ortho: Tenderness on palpation to nails 1-5 b/l Derm: Nails 1-5 b/l are thickened, elongated, dystrophic, discolored. Webspace 3 on the left foot is macerated. - Neurological Exam Neurological exam: Alert, Oriented x3 - Psychiatric Exam Psychiatric exam: Normal Affect, Normal Mood Results - Vital Signs Recent Vital Signs: Last Vital Signs Temp 97.2 F L 06/03/17 08:22 Pulse 84 06/03/17 08:22 Resp 20 06/03/17 08:22 BP 107/65 06/03/17 08:22 Pulse Ox 98 06/03/17 08:22 - Labs Result Diagrams: 06/03/17 08:46 06/03/17 09:30 Labs: Laboratory Results - last 24 hr 06/03/17 06/03/17 08:46 09:30 WBC 8.5 RBC 4.34 L Hgb 12.6 Hct 37.8 MCV 87.0 MCH 29.0 MCHC 33.3 RDW 15.3 H Plt Count 335 MPV 7.0 L Neut % (Auto) 46.6 L Lymph % (Auto) 33.5 [place] % (Auto) 10.8 H Eos % (Auto) 8.4 H Baso % (Auto) 0.7 Neut # 4.0 Lymph # 2.8 [place] # 0.9 H Eos # 0.7 Baso # 0.1 Sodium 144 Potassium 4.4 Chloride 105 Carbon Dioxide 28 Anion Gap 15 BUN 14 Creatinine 0.6 L Est GFR ( Amer) > 60 Est GFR (Non-Af Amer) > 60 Random Glucose 95 Calcium 9.0 Phosphorus 3.5 Magnesium 1.8 Total Bilirubin 0.3 AST 22 ALT 34 Alkaline Phosphatase 67 Troponin I < 0.0120 Total Protein 7.6 Albumin 4.3 Globulin 3.3 Albumin/Globulin Ratio 1.3 Vitamin B12 334 Assessment & Plan - Assessment and Plan (Free Text) Assessment: 51 year old male with painful elongated toenails 1-10 Plan: patient examined and evaluated discussed in detail with attending, Dr. Tobias nails 1-5 b/l were debrided in thickness and in length without incident macerated webspace was cleansed thank you for allowing us to participate in the care for this patient please re-consult as necessary
[2017-06-03] MEDS: Lactobacillus Acidophilus 500 MU Cap PO SCH ×2 (11:43→17:09)
--- NOTE | 2017-06-03 14:23 | CP.PCM.PN ---
Subjective - Date & Time of Evaluation Date of Evaluation: 06/03/17 Time of Evaluation: 08:00 - Subjective Subjective: RECENT EVENTS NOTED NO CHEST PAIN AT PRESENT REMAINS AFEBRILE Objective - Vital Signs/Intake and Output Vital Signs (last 24 hours): Temp Pulse Resp BP Pulse Ox 97.2 F L 84 20 107/65 98 06/03/17 08:22 06/03/17 08:22 06/03/17 08:22 06/03/17 08:22 06/03/17 08:22 - Medications Medications: Current Medications Acetaminophen (Tylenol 325mg Tab) 650 mg PO Q6 PRN PRN Reason: Fever >100.4 F Baclofen (Lioresal) 20 mg PO TID [facility] Last Admin: 06/03/17 13:47 Dose: 20 mg Docusate Sodium (Colace) 100 mg PO BID [facility] Last Admin: 06/03/17 09:55 Dose: 100 mg Enoxaparin Sodium (Lovenox) 40 mg SC DAILY [facility] PRN Reason: Protocol Last Admin: 06/03/17 09:56 Dose: 40 mg Fentanyl (Duragesic) 1 patch TD Q3D [facility] PRN Reason: Protocol Last Admin: 06/01/17 17:13 Dose: 1 patch Home Med (Dimethyl Fumarate [Tecfidera]) 240 mg PO BID [facility] Last Admin: 06/03/17 09:56 Dose: 240 mg Aztreonam 2 gm/ Sodium (Chloride) 100 mls @ 100 mls/hr IVPB Q12@0500,1700 [facility] Last Admin: 06/03/17 04:21 Dose: 100 mls/hr Fluconazole (Diflucan Iv 200 Mg/100 Ml Ns) 100 mls @ 100 mls/hr IVPB DAILY [facility] Last Admin: 06/03/17 09:55 Dose: 100 mls/hr Gentamicin Sulfate/Sodium Chloride (Gentamicin 60mg/50ml Ns) 60 mg in 50 mls @ 50 mls/hr IVPB Q12@0500,1700 [facility] Last Admin: 06/03/17 05:31 Dose: 50 mls/hr Lactobacillus Acidophilus (Bacid Acidophilus) 1 cap PO BID [facility] Last Admin: 06/03/17 11:43 Dose: 1 cap Lamotrigine (Lamictal) 200 mg PO BID [facility] Last Admin: 06/03/17 09:55 Dose: 200 mg Levetiracetam (Keppra) 1,000 mg PO TID [facility] Last Admin: 06/03/17 13:47 Dose: 1,000 mg Quetiapine Fumarate (Seroquel) 100 mg PO HS [facility] Last Admin: 06/02/17 21:01 Dose: 100 mg Tamsulosin HCl (Flomax) 0.4 mg PO DAILY [facility] Last Admin: 06/03/17 09:56 Dose: 0.4 mg - Labs Labs: 06/03/17 08:46 06/03/17 09:30 - Constitutional Appears: Non-toxic, Chronically Ill - Head Exam Head Exam: NORMOCEPHALIC - Eye Exam Eye Exam: PERRL. absent: Scleral icterus - ENT Exam ENT Exam: Mucous Membranes Dry - Neck Exam Neck Exam: absent: Lymphadenopathy - Respiratory Exam Respiratory Exam: Decreased Breath Sounds - Cardiovascular Exam Cardiovascular Exam: REGULAR RHYTHM - GI/Abdominal Exam GI & Abdominal Exam: Distended, Soft - Rectal Exam Rectal Exam: Deferred - Exam Exam: NORMAL INSPECTION - Extremities Exam Extremities Exam: absent: Pedal Edema - Back Exam Back Exam: absent: CVA tenderness (L), CVA tenderness (R) - Neurological Exam Neurological Exam: Alert, Awake, CN II-XII Intact, Oriented x3 Neuro motor strength exam: Left Upper Extremity: 3, Right Upper Extremity: 3, Left Lower Extremity: 2/1, Right Lower Extremity: 2/1 - Psychiatric Exam Psychiatric exam: Depressed - Skin Skin Exam: Dry Assessment and Plan (1) Debility Status: Chronic (2) Fever and chills Status: Acute (3) Multiple sclerosis, relapsing-remitting Status: Acute (4) Multiple sclerosis Status: Chronic - Assessment and Plan (Free Text) Assessment: OK TO D/C IV ANTIBIOTICS
--- NOTE | 2017-06-03 19:21 | CP.PCM.PN ---
Subjective - Date & Time of Evaluation Date of Evaluation: 06/03/17 Time of Evaluation: 19:22 - Subjective Subjective: At present comfortable Objective - Vital Signs/Intake and Output Vital Signs (last 24 hours): Temp Pulse Resp BP Pulse Ox 98.8 F 93 H 20 116/75 96 06/03/17 15:48 06/03/17 15:48 06/03/17 15:48 06/03/17 15:48 06/03/17 15:48 - Medications Medications: Current Medications Acetaminophen (Tylenol 325mg Tab) 650 mg PO Q6 PRN PRN Reason: Fever >100.4 F Baclofen (Lioresal) 20 mg PO TID [facility] Last Admin: 06/03/17 17:09 Dose: 20 mg Docusate Sodium (Colace) 100 mg PO BID [facility] Last Admin: 06/03/17 17:09 Dose: 100 mg Enoxaparin Sodium (Lovenox) 40 mg SC DAILY [facility] PRN Reason: Protocol Last Admin: 06/03/17 09:56 Dose: 40 mg Fentanyl (Duragesic) 1 patch TD Q3D [facility] PRN Reason: Protocol Last Admin: 06/01/17 17:13 Dose: 1 patch Home Med (Dimethyl Fumarate [Tecfidera]) 240 mg PO BID [facility] Last Admin: 06/03/17 17:09 Dose: 240 mg Aztreonam 2 gm/ Sodium (Chloride) 100 mls @ 100 mls/hr IVPB Q12@0500,1700 [facility] Last Admin: 06/03/17 17:10 Dose: 100 mls/hr Fluconazole (Diflucan Iv 200 Mg/100 Ml Ns) 100 mls @ 100 mls/hr IVPB DAILY [facility] Last Admin: 06/03/17 09:55 Dose: 100 mls/hr Lactobacillus Acidophilus (Bacid Acidophilus) 1 cap PO BID [facility] Last Admin: 06/03/17 17:09 Dose: 1 cap Lamotrigine (Lamictal) 200 mg PO BID [facility] Last Admin: 06/03/17 17:10 Dose: 200 mg Levetiracetam (Keppra) 1,000 mg PO TID [facility] Last Admin: 06/03/17 17:10 Dose: 1,000 mg Quetiapine Fumarate (Seroquel) 100 mg PO HS [facility] Last Admin: 06/02/17 21:01 Dose: 100 mg Tamsulosin HCl (Flomax) 0.4 mg PO DAILY [facility] Last Admin: 06/03/17 09:56 Dose: 0.4 mg - Labs Labs: 06/03/17 08:46 06/03/17 09:30 - Constitutional Appears: Confused, Chronically Ill - Head Exam Head Exam: ATRAUMATIC, NORMAL INSPECTION, NORMOCEPHALIC - Neck Exam Neck Exam: Full ROM - Respiratory Exam Respiratory Exam: Clear to Ausculation Bilateral - Cardiovascular Exam Cardiovascular Exam: REGULAR RHYTHM, +S1, +S2 - GI/Abdominal Exam GI & Abdominal Exam: Normal Bowel Sounds - Neurological Exam Neurological Exam: Alert, Awake Assessment and Plan (1) DVT prophylaxis Status: Acute (2) Delirium due to general medical condition Status: Acute (3) Recurrent seizures Status: Chronic (4) UTI (urinary tract infection) Status: Acute (5) Anxiety Status: Chronic (6) Depression Status: Chronic (7) Multiple sclerosis Status: Chronic (8) Debility Status: Chronic (9) Fever Status: Acute (10) Fever and chills Status: Acute - Assessment and Plan (Free Text) Plan: Continue present rx, will follow sensitivity
--- NOTE | 2017-06-03 21:07 | CARD ---
APPROVED REPORT EKG Measurement Heart [id number] <Conclusion> Normal sinus rhythm Left anterior fascicular block Abnormal ECG
[2017-06-04] MEDS: Aztreonam 2 GM in Sodium Chloride 0.9% 100 ML IVPB SCH (05:51)
[2017-06-04] MEDS: Lactobacillus Acidophilus 500 MU Cap PO SCH ×2 (08:55→17:09)
[2017-06-04] MEDS: Enoxaparin 40 mg Syringe SC SCH (08:55)
[2017-06-04] MEDS: Fluconazole IV 200mg/100 ml NS 100 ML IVPB SCH (09:04)
--- NOTE | 2017-06-04 11:05 | CP.PCM.PN ---
Subjective - Date & Time of Evaluation Date of Evaluation: 06/04/17 Time of Evaluation: 11:20 - Subjective Subjective: No new c/o Objective - Vital Signs/Intake and Output Vital Signs (last 24 hours): Temp Pulse Resp BP Pulse Ox 97.8 F 74 20 112/70 92 L 06/04/17 09:07 06/04/17 09:07 06/04/17 09:07 06/04/17 09:07 06/04/17 09:07 - Medications Medications: Current Medications Acetaminophen (Tylenol 325mg Tab) 650 mg PO Q6 PRN PRN Reason: Fever >100.4 F Baclofen (Lioresal) 20 mg PO TID [facility] Last Admin: 06/04/17 08:55 Dose: 20 mg Docusate Sodium (Colace) 100 mg PO BID [facility] Last Admin: 06/04/17 08:55 Dose: 100 mg Enoxaparin Sodium (Lovenox) 40 mg SC DAILY [facility] PRN Reason: Protocol Last Admin: 06/04/17 08:55 Dose: 40 mg Fentanyl (Duragesic) 1 patch TD Q3D [facility] PRN Reason: Protocol Last Admin: 06/01/17 17:13 Dose: 1 patch Home Med (Dimethyl Fumarate [Tecfidera]) 240 mg PO BID [facility] Last Admin: 06/04/17 08:55 Dose: 240 mg Aztreonam 2 gm/ Sodium (Chloride) 100 mls @ 100 mls/hr IVPB Q12@0500,1700 [facility] Last Admin: 06/04/17 05:51 Dose: 100 mls/hr Fluconazole (Diflucan Iv 200 Mg/100 Ml Ns) 100 mls @ 100 mls/hr IVPB DAILY [facility] Last Admin: 06/04/17 09:04 Dose: 100 mls/hr Lactobacillus Acidophilus (Bacid Acidophilus) 1 cap PO BID [facility] Last Admin: 06/04/17 08:55 Dose: 1 cap Lamotrigine (Lamictal) 200 mg PO BID [facility] Last Admin: 06/04/17 08:55 Dose: 200 mg Levetiracetam (Keppra) 1,000 mg PO TID [facility] Last Admin: 06/04/17 08:55 Dose: 1,000 mg Quetiapine Fumarate (Seroquel) 100 mg PO HS [facility] Last Admin: 06/03/17 22:01 Dose: 100 mg Tamsulosin HCl (Flomax) 0.4 mg PO DAILY [facility] Last Admin: 06/04/17 08:55 Dose: 0.4 mg - Labs Labs: 06/03/17 08:46 06/03/17 09:30 - Constitutional Appears: Chronically Ill - Head Exam Head Exam: ATRAUMATIC, NORMAL INSPECTION, NORMOCEPHALIC - Eye Exam Eye Exam: EOMI, Normal appearance - ENT Exam ENT Exam: Mucous Membranes Moist - Neck Exam Neck Exam: Full ROM - Respiratory Exam Respiratory Exam: Clear to Ausculation Bilateral - Cardiovascular Exam Cardiovascular Exam: Clicks, +S1, +S2 - GI/Abdominal Exam GI & Abdominal Exam: Soft, Normal Bowel Sounds - Neurological Exam Neurological Exam: Alert, Altered, Awake - Psychiatric Exam Psychiatric exam: Normal Affect - Skin Skin Exam: Normal Color Assessment and Plan (1) DVT prophylaxis Status: Acute (2) Delirium due to general medical condition Status: Acute (3) Recurrent seizures Status: Chronic (4) UTI (urinary tract infection) Status: Acute (5) Anxiety Status: Chronic (6) Depression Status: Chronic (7) Multiple sclerosis Status: Chronic (8) Debility Status: Chronic (9) Fever Status: Acute (10) Fever and chills Status: Acute - Assessment and Plan (Free Text) Plan: Continue present rx.
--- NOTE | 2017-06-04 13:48 | CP.PCM.PN ---
Subjective - Date & Time of Evaluation Date of Evaluation: 06/04/17 Time of Evaluation: 08:00 - Subjective Subjective: URINE C/S + vre SENS TO pcn BUT PT MAY BE ALLERGIC? PO ZYVOX ADDED Objective - Vital Signs/Intake and Output Vital Signs (last 24 hours): Temp Pulse Resp BP Pulse Ox 97.8 F 74 20 112/70 92 L 06/04/17 09:07 06/04/17 09:07 06/04/17 09:07 06/04/17 09:07 06/04/17 09:07 - Medications Medications: Current Medications Acetaminophen (Tylenol 325mg Tab) 650 mg PO Q6 PRN PRN Reason: Fever >100.4 F Baclofen (Lioresal) 20 mg PO TID [facility] Last Admin: 06/04/17 12:22 Dose: 20 mg Docusate Sodium (Colace) 100 mg PO BID [facility] Last Admin: 06/04/17 08:55 Dose: 100 mg Home Med (Dimethyl Fumarate [Tecfidera]) 240 mg PO BID [facility] Last Admin: 06/04/17 08:55 Dose: 240 mg Fluconazole (Diflucan Iv 200 Mg/100 Ml Ns) 100 mls @ 100 mls/hr IVPB DAILY [facility] Last Admin: 06/04/17 09:04 Dose: 100 mls/hr Lactobacillus Acidophilus (Bacid Acidophilus) 1 cap PO BID [facility] Last Admin: 06/04/17 08:55 Dose: 1 cap Lamotrigine (Lamictal) 200 mg PO BID [facility] Last Admin: 06/04/17 08:55 Dose: 200 mg Levetiracetam (Keppra) 1,000 mg PO TID [facility] Last Admin: 06/04/17 12:22 Dose: 1,000 mg Linezolid (Zyvox) 600 mg PO Q12 [facility] PRN Reason: Protocol Quetiapine Fumarate (Seroquel) 100 mg PO HS [facility] Last Admin: 06/03/17 22:01 Dose: 100 mg Tamsulosin HCl (Flomax) 0.4 mg PO DAILY [facility] Last Admin: 06/04/17 08:55 Dose: 0.4 mg - Labs Labs: 06/03/17 08:46 06/03/17 09:30 Assessment and Plan (1) Debility Status: Chronic (2) Fever and chills Status: Acute (3) Multiple sclerosis, relapsing-remitting Status: Acute (4) Multiple sclerosis Status: Chronic
--- NOTE | 2017-06-04 15:35 | CP.PCM.CON ---
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 admitted to TCU s/p urosepsis in denies fever / chills alert but confused consult requested for increased confusiona nd possible depression pt on evaluation cooperative good eye contact, denied any previous psychiatric treatment, denied changes in sleep or appetite, reported mood is fine, denied any perceptual disturbances denied suicidal or homicidal ideations pt however alert but confused oriented to person only not oriented to place or time Past Patient History - Infectious Disease Hx of Infectious Diseases: None - Tetanus Immunizations Tetanus Immunization: Unknown - Past Medical History & Family History Past Medical History?: Yes - Past Social History Smoking Status: Never Smoked - CARDIAC Hx Cardiac Disorders: Yes Hx Hypercholesterolemia: Yes Hx Hypertension: Yes Hx Peripheral Edema: Yes (bl le swelling no longer) - PULMONARY Hx Respiratory Disorders: Yes Hx Chronic Obstructive Pulmonary Disease (COPD): Yes Hx Pneumonia: Yes Hx Pulmonary Embolism: Yes (h/o dvt) - NEUROLOGICAL Hx Neurological Disorder: Yes Hx Dementia: Yes Hx Multiple Sclerosis: Yes Hx Seizures: Yes - HEENT Hx HEENT Problems: Yes (poor vision left eye) - RENAL Hx Chronic Kidney Disease: Yes Hx Kidney Stones: Yes - ENDOCRINE/METABOLIC Hx Endocrine Disorders: No - HEMATOLOGICAL/ONCOLOGICAL Hx Blood Disorders: Yes Hx Anemia: Yes - INTEGUMENTARY Hx Dermatological Problems: No - MUSCULOSKELETAL/RHEUMATOLOGICAL Hx Musculoskeletal Disorders: Yes Hx Arthritis: Yes Hx Back Pain: Yes Hx Falls: Yes - GASTROINTESTINAL Hx Gastrointestinal Disorders: Yes (constipation) - GENITOURINARY/GYNECOLOGICAL Hx Genitourinary Disorders: Yes Hx Incontinence: Yes Hx Prostate Problems: Yes Hx Urinary Tract Infection: Yes - PSYCHIATRIC Hx Psychophysiologic Disorder: Yes Hx Anxiety: Yes Hx Depression: Yes Hx Substance Use: No - SURGICAL HISTORY Hx Surgeries: Yes Other/Comment: cysto with removal of stent 05/19/16- kidney stones - ANESTHESIA Hx Anesthesia: Yes Hx Anesthesia Reactions: No Hx Malignant Hyperthermia: No Meds Allergies/Adverse Reactions: Allergies Allergy/AdvReac Type Severity Reaction Status Date / Time cefazolin Allergy RASH, Verified 05/28/17 19:00 ITCHINESS - Medications Medications: Current Medications Acetaminophen (Tylenol 325mg Tab) 650 mg PO Q6 PRN PRN Reason: Fever >100.4 F Baclofen (Lioresal) 20 mg PO TID [facility] Last Admin: 06/04/17 12:22 Dose: 20 mg Docusate Sodium (Colace) 100 mg PO BID [facility] Last Admin: 06/04/17 08:55 Dose: 100 mg Home Med (Dimethyl Fumarate [Tecfidera]) 240 mg PO BID [facility] Last Admin: 06/04/17 08:55 Dose: 240 mg Fluconazole (Diflucan Iv 200 Mg/100 Ml Ns) 100 mls @ 100 mls/hr IVPB DAILY [facility] Last Admin: 06/04/17 09:04 Dose: 100 mls/hr Lactobacillus Acidophilus (Bacid Acidophilus) 1 cap PO BID [facility] Last Admin: 06/04/17 08:55 Dose: 1 cap Lamotrigine (Lamictal) 200 mg PO BID [facility] Last Admin: 06/04/17 08:55 Dose: 200 mg Levetiracetam (Keppra) 1,000 mg PO TID [facility] Last Admin: 06/04/17 12:22 Dose: 1,000 mg Linezolid (Zyvox) 600 mg PO Q12 [facility] PRN Reason: Protocol Quetiapine Fumarate (Seroquel) 100 mg PO HS [facility] Last Admin: 06/03/17 22:01 Dose: 100 mg Tamsulosin HCl (Flomax) 0.4 mg PO DAILY [facility] Last Admin: 06/04/17 08:55 Dose: 0.4 mg Physical Exam - Neurological Exam Additional comments: pt cooperative , good eye contact mood reported fine affect appropriate, thought form circumstantial, denied any current suicidal or homicidal ideations , alert awake oriented to person only Results - Vital Signs Recent Vital Signs: Last Vital Signs Temp 97.8 F 06/04/17 09:07 Pulse 74 06/04/17 09:07 Resp 20 06/04/17 09:07 BP 112/70 06/04/17 09:07 Pulse Ox 92 L 06/04/17 09:07 - Labs Result Diagrams: 06/03/17 08:46 06/03/17 09:30 Assessment & Plan - Assessment and Plan (Free Text) Assessment: neurocognitive disorder moderate Plan: continue current managment start namenda 5mg and uptitrate 10mg - Date & Time Date: 06/04/17 Time: 15:35
[2017-06-05] MEDS: Lactobacillus Acidophilus 500 MU Cap PO SCH ×2 (08:53→16:36)
[2017-06-05] MEDS: Fluconazole IV 200mg/100 ml NS 100 ML IVPB SCH (08:56)
[2017-06-05 22:24] LABS: FOLATE 7.1 ng/mL
[2017-06-06] MEDS: Lactobacillus Acidophilus 500 MU Cap PO SCH ×2 (09:40→17:21)
[2017-06-06] MEDS: Fluconazole IV 200mg/100 ml NS 100 ML IVPB SCH (09:41)
[2017-06-07] MEDS: Lactobacillus Acidophilus 500 MU Cap PO SCH ×2 (09:37→16:24)
--- NOTE | 2017-06-07 12:08 | PN ---
DATE: 06/06/2017 SUBJECTIVE: The patient was seen on PCU in [facility] on 06/06/2017, covering for Dr. Morris. PHYSICAL EXAMINATION GENERAL: The patient was not in any cardiopulmonary distress. VITAL SIGNS: Blood pressure 99/60, temperature 97.3, respiratory rate 20 and pulse 64. HEENT: Pupils equal, reactive to light. Normal-appearing mucosa of the conjunctivae, oropharyngeal and nasal membrane mucosa. NECK: Supple. No JVD. No carotid bruit. No lymph node. No thyromegaly. CHEST AND LUNGS: Bilateral symmetrical expansion. Good air exchange. No rales. No rhonchi. CARDIOVASCULAR SYSTEM: PMI not localized. S1 and S2. No additional sounds. ABDOMEN: Normoactive bowel sounds. No tenderness. No organomegaly. No masses. EXTREMITIES: No cyanosis, no clubbing, no edema. CENTRAL NERVOUS SYSTEM: The patient is wheelchair-bound secondary to the multiple sclerosis disease. ASSESSMENT: Multiple sclerosis, seizure disorder. PLAN: Continue current anti-seizure medications and physical therapy. Follow recommendations of the consultants. Tessa Onofre MD
--- NOTE | 2017-06-07 12:09 | CP.PCM.PN ---
Subjective - Date & Time of Evaluation Date of Evaluation: 06/07/17 Time of Evaluation: 12:08 - Subjective Subjective: Patient still confuse Objective - Vital Signs/Intake and Output Vital Signs (last 24 hours): Temp Pulse Resp BP Pulse Ox 97.3 F L 75 20 101/64 95 06/07/17 08:15 06/07/17 08:15 06/07/17 08:15 06/07/17 08:15 06/07/17 08:15 - Medications Medications: Current Medications Acetaminophen (Tylenol 325mg Tab) 650 mg PO Q6 PRN PRN Reason: Fever >100.4 F Baclofen (Lioresal) 20 mg PO TID [facility] Last Admin: 06/07/17 09:37 Dose: 20 mg Docusate Sodium (Colace) 100 mg PO BID [facility] Last Admin: 06/07/17 09:39 Dose: 100 mg Home Med (Dimethyl Fumarate [Tecfidera]) 240 mg PO BID [facility] Last Admin: 06/07/17 09:37 Dose: 240 mg Linezolid (Zyvox 600mg/300ml D5w) 600 mg in 300 mls @ 300 mls/hr IVPB Q12 [facility] PRN Reason: Protocol Fluconazole (Diflucan Iv 200 Mg/100 Ml Ns) 100 mls @ 100 mls/hr IVPB DAILY@ 1700 [facility] Lactobacillus Acidophilus (Bacid Acidophilus) 1 cap PO BID [facility] Last Admin: 06/07/17 09:37 Dose: 1 cap Lamotrigine (Lamictal) 200 mg PO BID [facility] Last Admin: 06/07/17 09:38 Dose: 200 mg Levetiracetam (Keppra) 1,000 mg PO TID [facility] Last Admin: 06/07/17 09:37 Dose: 1,000 mg Quetiapine Fumarate (Seroquel) 100 mg PO HS [facility] Last Admin: 06/06/17 21:45 Dose: 100 mg Tamsulosin HCl (Flomax) 0.4 mg PO DAILY [facility] Last Admin: 06/07/17 09:38 Dose: 0.4 mg - Labs Labs: 06/03/17 08:46 06/03/17 09:30 - Constitutional Appears: Confused, Chronically Ill - Head Exam Head Exam: ATRAUMATIC, NORMAL INSPECTION, NORMOCEPHALIC - Eye Exam Eye Exam: Normal appearance - Neck Exam Neck Exam: Full ROM - Respiratory Exam Respiratory Exam: Clear to Ausculation Bilateral - Cardiovascular Exam Cardiovascular Exam: REGULAR RHYTHM, +S1, +S2 - GI/Abdominal Exam GI & Abdominal Exam: Soft, Normal Bowel Sounds - Neurological Exam Neurological Exam: Alert, Altered, Awake - Psychiatric Exam Psychiatric exam: Anxious - Skin Skin Exam: Normal Color Assessment and Plan (1) DVT prophylaxis Status: Acute (2) Delirium due to general medical condition Status: Acute (3) Recurrent seizures Status: Chronic (4) UTI (urinary tract infection) Status: Acute (5) Anxiety Status: Chronic (6) Depression Status: Chronic (7) Multiple sclerosis Status: Chronic (8) Debility Status: Chronic (9) Fever Status: Acute (10) Fever and chills Status: Acute
[2017-06-07] MEDS: Linezolid 600 mg in D5W 300 ml 600 MG/300 ML BAG IVPB SCH ×2 (13:47→21:19)
[2017-06-07] MEDS: Fluconazole IV 200mg/100 ml NS 100 ML IVPB SCH ×2 (16:25→16:54)
[2017-06-08] MEDS: Lactobacillus Acidophilus 500 MU Cap PO SCH ×2 (09:09→16:54)
[2017-06-08] MEDS: Linezolid 600 mg in D5W 300 ml 600 MG/300 ML BAG IVPB SCH ×2 (09:11→21:36)
--- NOTE | 2017-06-08 12:59 | CP.PCM.PN ---
Subjective - Date & Time of Evaluation Date of Evaluation: 06/08/17 Time of Evaluation: 10:00 - Subjective Subjective: events noted improving Objective - Vital Signs/Intake and Output Vital Signs (last 24 hours): Temp Pulse Resp BP Pulse Ox 97.3 F L 72 20 100/58 L 91 L 06/08/17 08:13 06/08/17 08:13 06/08/17 08:13 06/08/17 08:13 06/08/17 08:13 - Medications Medications: Current Medications Acetaminophen (Tylenol 325mg Tab) 650 mg PO Q6 PRN PRN Reason: Fever >100.4 F Baclofen (Lioresal) 20 mg PO TID [facility] Last Admin: 06/08/17 12:33 Dose: 20 mg Docusate Sodium (Colace) 100 mg PO BID [facility] Last Admin: 06/08/17 09:08 Dose: 100 mg Fentanyl (Duragesic) 1 patch TD Q3D [facility] PRN Reason: Protocol Last Admin: 06/07/17 14:27 Dose: 1 patch Home Med (Dimethyl Fumarate [Tecfidera]) 240 mg PO BID [facility] Last Admin: 06/08/17 09:09 Dose: 240 mg Linezolid (Zyvox 600mg/300ml D5w) 600 mg in 300 mls @ 300 mls/hr IVPB Q12 [facility] PRN Reason: Protocol Last Admin: 06/08/17 09:11 Dose: 300 mls/hr Fluconazole (Diflucan Iv 200 Mg/100 Ml Ns) 100 mls @ 100 mls/hr IVPB DAILY@ 1700 [facility] Last Admin: 06/07/17 16:25 Dose: 100 mls/hr Lactobacillus Acidophilus (Bacid Acidophilus) 1 cap PO BID [facility] Last Admin: 06/08/17 09:09 Dose: 1 cap Lamotrigine (Lamictal) 200 mg PO BID [facility] Last Admin: 06/08/17 09:08 Dose: 200 mg Levetiracetam (Keppra) 1,000 mg PO TID [facility] Last Admin: 06/08/17 12:33 Dose: 1,000 mg Memantine (Namenda) 10 mg PO DAILY [facility] Last Admin: 06/08/17 09:09 Dose: 10 mg Quetiapine Fumarate (Seroquel) 100 mg PO HS [facility] Last Admin: 06/07/17 21:13 Dose: 100 mg Tamsulosin HCl (Flomax) 0.4 mg PO DAILY [facility] Last Admin: 06/08/17 09:08 Dose: 0.4 mg - Labs Labs: 06/03/17 08:46 06/03/17 09:30 - Constitutional Appears: Non-toxic, Chronically Ill - Head Exam Head Exam: NORMOCEPHALIC - Eye Exam Eye Exam: PERRL - ENT Exam ENT Exam: Mucous Membranes Dry - Neck Exam Neck Exam: absent: Lymphadenopathy - Respiratory Exam Respiratory Exam: Decreased Breath Sounds - Cardiovascular Exam Cardiovascular Exam: REGULAR RHYTHM - GI/Abdominal Exam GI & Abdominal Exam: Distended - Rectal Exam Rectal Exam: Deferred - Exam Exam: NORMAL INSPECTION - Extremities Exam Extremities Exam: absent: Pedal Edema - Back Exam Back Exam: absent: CVA tenderness (L), CVA tenderness (R) - Neurological Exam Neurological Exam: Alert, Awake Assessment and Plan (1) Debility Status: Chronic (2) Fever and chills Status: Acute (3) Multiple sclerosis, relapsing-remitting Status: Acute (4) Multiple sclerosis Status: Chronic
[2017-06-08] MEDS: Fluconazole IV 200mg/100 ml NS 100 ML IVPB SCH (16:53)
--- NOTE | 2017-06-08 18:33 | CP.PCM.PN ---
Subjective - Date & Time of Evaluation Date of Evaluation: 06/08/17 Time of Evaluation: 18:33 - Subjective Subjective: Comfortable Objective - Vital Signs/Intake and Output Vital Signs (last 24 hours): Temp Pulse Resp BP Pulse Ox 98.2 F 87 20 106/46 L 95 06/08/17 16:58 06/08/17 16:58 06/08/17 16:58 06/08/17 16:58 06/08/17 16:58 - Medications Medications: Current Medications Acetaminophen (Tylenol 325mg Tab) 650 mg PO Q6 PRN PRN Reason: Fever >100.4 F Baclofen (Lioresal) 20 mg PO TID [facility] Last Admin: 06/08/17 16:54 Dose: 20 mg Docusate Sodium (Colace) 100 mg PO BID [facility] Last Admin: 06/08/17 16:54 Dose: 100 mg Fentanyl (Duragesic) 1 patch TD Q3D [facility] PRN Reason: Protocol Last Admin: 06/07/17 14:27 Dose: 1 patch Home Med (Dimethyl Fumarate [Tecfidera]) 240 mg PO BID [facility] Last Admin: 06/08/17 16:54 Dose: 240 mg Linezolid (Zyvox 600mg/300ml D5w) 600 mg in 300 mls @ 300 mls/hr IVPB Q12 [facility] PRN Reason: Protocol Last Admin: 06/08/17 09:11 Dose: 300 mls/hr Fluconazole (Diflucan Iv 200 Mg/100 Ml Ns) 100 mls @ 100 mls/hr IVPB DAILY@ 1700 [facility] Last Admin: 06/08/17 16:53 Dose: 100 mls/hr Lactobacillus Acidophilus (Bacid Acidophilus) 1 cap PO BID [facility] Last Admin: 06/08/17 16:54 Dose: 1 cap Lamotrigine (Lamictal) 200 mg PO BID [facility] Last Admin: 06/08/17 16:54 Dose: 200 mg Levetiracetam (Keppra) 1,000 mg PO TID [facility] Last Admin: 06/08/17 16:54 Dose: 1,000 mg Memantine (Namenda) 10 mg PO DAILY [facility] Last Admin: 06/08/17 09:09 Dose: 10 mg Quetiapine Fumarate (Seroquel) 100 mg PO [facility] Last Admin: 06/07/17 21:13 Dose: 100 mg Tamsulosin HCl (Flomax) 0.4 mg PO DAILY [facility] Last Admin: 06/08/17 09:08 Dose: 0.4 mg - Labs Labs: 06/03/17 08:46 06/03/17 09:30 - Constitutional Appears: Confused, Chronically Ill - Head Exam Head Exam: NORMAL INSPECTION - Eye Exam Eye Exam: Normal appearance - ENT Exam ENT Exam: Mucous Membranes Moist - Neck Exam Neck Exam: Full ROM - Respiratory Exam Respiratory Exam: NORMAL BREATHING PATTERN - Cardiovascular Exam Cardiovascular Exam: REGULAR RHYTHM, +S1, +S2 - GI/Abdominal Exam GI & Abdominal Exam: Soft, Normal Bowel Sounds - Neurological Exam Neurological Exam: Alert, Altered, Awake - Psychiatric Exam Psychiatric exam: Anxious Assessment and Plan (1) DVT prophylaxis Status: Acute (2) Delirium due to general medical condition Status: Acute (3) Recurrent seizures Status: Chronic (4) UTI (urinary tract infection) Status: Acute (5) Anxiety Status: Chronic (6) Depression Status: Chronic (7) Multiple sclerosis Status: Chronic (8) Debility Status: Chronic (9) Fever Status: Acute (10) Fever and chills Status: Acute
[2017-06-09] MEDS: Lactobacillus Acidophilus 500 MU Cap PO SCH ×2 (09:19→16:22)
[2017-06-09] MEDS: Linezolid 600 mg in D5W 300 ml 600 MG/300 ML BAG IVPB SCH ×2 (09:20→21:33)
[2017-06-09] MEDS: Fluconazole IV 200mg/100 ml NS 100 ML IVPB SCH (16:22)
[2017-06-10] MEDS: Linezolid 600 mg in D5W 300 ml 600 MG/300 ML BAG IVPB SCH ×2 (08:52→22:36)
[2017-06-10] MEDS: Lactobacillus Acidophilus 500 MU Cap PO SCH ×2 (08:59→22:35)
--- NOTE | 2017-06-10 11:20 | CP.PCM.PN ---
Subjective - Date & Time of Evaluation Date of Evaluation: 06/10/17 Time of Evaluation: 11:20 - Subjective Subjective: Not in distress Objective - Vital Signs/Intake and Output Vital Signs (last 24 hours): Temp Pulse Resp BP Pulse Ox 97.9 F 87 20 92/60 L 95 06/10/17 08:20 06/10/17 08:20 06/10/17 08:20 06/10/17 08:20 06/10/17 08:20 - Medications Medications: Current Medications Acetaminophen (Tylenol 325mg Tab) 650 mg PO Q6 PRN PRN Reason: Fever >100.4 F Baclofen (Lioresal) 20 mg PO TID [facility] Last Admin: 06/10/17 08:47 Dose: 20 mg Docusate Sodium (Colace) 100 mg PO BID [facility] Last Admin: 06/10/17 08:48 Dose: 100 mg Fentanyl (Duragesic) 1 patch TD Q3D [facility] PRN Reason: Protocol Last Admin: 06/07/17 14:27 Dose: 1 patch Home Med (Dimethyl Fumarate [Tecfidera]) 240 mg PO BID [facility] Last Admin: 06/10/17 08:50 Dose: Not Given Linezolid (Zyvox 600mg/300ml D5w) 600 mg in 300 mls @ 300 mls/hr IVPB Q12 [facility] PRN Reason: Protocol Last Admin: 06/10/17 08:52 Dose: 300 mls/hr Fluconazole (Diflucan Iv 200 Mg/100 Ml Ns) 100 mls @ 100 mls/hr IVPB DAILY@ 1700 [facility] Last Admin: 06/09/17 16:22 Dose: 100 mls/hr Lactobacillus Acidophilus (Bacid Acidophilus) 1 cap PO BID [facility] Last Admin: 06/10/17 08:59 Dose: 1 cap Lamotrigine (Lamictal) 200 mg PO BID [facility] Last Admin: 06/10/17 08:48 Dose: 200 mg Levetiracetam (Keppra) 1,000 mg PO TID [facility] Last Admin: 06/10/17 08:47 Dose: 1,000 mg Memantine (Namenda) 10 mg PO DAILY [facility] Last Admin: 06/10/17 08:48 Dose: 10 mg Quetiapine Fumarate (Seroquel) 100 mg PO HS [facility] Last Admin: 06/09/17 21:33 Dose: 100 mg Tamsulosin HCl (Flomax) 0.4 mg PO DAILY [facility] Last Admin: 06/10/17 08:47 Dose: 0.4 mg - Labs Labs: 06/03/17 08:46 06/03/17 09:30 - Constitutional Appears: No Acute Distress - Head Exam Head Exam: ATRAUMATIC, NORMAL INSPECTION, NORMOCEPHALIC - Eye Exam Eye Exam: Normal appearance - Neck Exam Neck Exam: Full ROM - Respiratory Exam Respiratory Exam: Clear to Ausculation Bilateral - Cardiovascular Exam Cardiovascular Exam: REGULAR RHYTHM, +S1, +S2 - GI/Abdominal Exam GI & Abdominal Exam: Normal Bowel Sounds - Neurological Exam Neurological Exam: Alert, Altered, Awake Assessment and Plan (1) DVT prophylaxis Status: Acute (2) Delirium due to general medical condition Status: Acute (3) Recurrent seizures Status: Chronic (4) UTI (urinary tract infection) Status: Acute (5) Anxiety Status: Chronic (6) Depression Status: Chronic (7) Multiple sclerosis Status: Chronic (8) Debility Status: Chronic (9) Fever Status: Acute (10) Fever and chills Status: Acute - Assessment and Plan (Free Text) Plan: repeat culture
[2017-06-10] MEDS: Fluconazole IV 200mg/100 ml NS 100 ML IVPB SCH (17:37)
[2017-06-11] MEDS: Lactobacillus Acidophilus 500 MU Cap PO SCH ×2 (09:09→17:18)
[2017-06-11] MEDS: Linezolid 600 mg in D5W 300 ml 600 MG/300 ML BAG IVPB SCH ×2 (09:12→21:05)
--- NOTE | 2017-06-11 13:26 | CP.PCM.PN ---
Subjective - Date & Time of Evaluation Date of Evaluation: 06/11/17 Time of Evaluation: 13:26 - Subjective Subjective: No new c/o UC pending. Objective - Vital Signs/Intake and Output Vital Signs (last 24 hours): Temp Pulse Resp BP Pulse Ox 97.4 F L 58 L 20 97/62 L 99 06/11/17 08:06 06/11/17 08:06 06/11/17 08:06 06/11/17 08:06 06/11/17 08:06 - Medications Medications: Current Medications Acetaminophen (Tylenol 325mg Tab) 650 mg PO Q6 PRN PRN Reason: Fever >100.4 F Baclofen (Lioresal) 20 mg PO TID [facility] Last Admin: 06/11/17 12:10 Dose: 20 mg Docusate Sodium (Colace) 100 mg PO BID [facility] Last Admin: 06/11/17 09:09 Dose: 100 mg Fentanyl (Duragesic) 1 patch TD Q3D [facility] PRN Reason: Protocol Last Admin: 06/11/17 09:13 Dose: 1 patch Home Med (Dimethyl Fumarate [Tecfidera]) 240 mg PO BID [facility] Last Admin: 06/11/17 09:09 Dose: 240 mg Linezolid (Zyvox 600mg/300ml D5w) 600 mg in 300 mls @ 300 mls/hr IVPB Q12 [facility] PRN Reason: Protocol Last Admin: 06/11/17 09:12 Dose: 300 mls/hr Fluconazole (Diflucan Iv 200 Mg/100 Ml Ns) 100 mls @ 100 mls/hr IVPB DAILY@ 1700 [facility] Last Admin: 06/10/17 17:37 Dose: 100 mls/hr Lactobacillus Acidophilus (Bacid Acidophilus) 1 cap PO BID [facility] Last Admin: 06/11/17 09:09 Dose: 1 cap Lamotrigine (Lamictal) 200 mg PO BID [facility] Last Admin: 06/11/17 09:09 Dose: 200 mg Levetiracetam (Keppra) 1,000 mg PO TID [facility] Last Admin: 06/11/17 12:10 Dose: 1,000 mg Memantine (Namenda) 10 mg PO DAILY [facility] Last Admin: 06/11/17 09:09 Dose: 10 mg Quetiapine Fumarate (Seroquel) 100 mg PO HS [facility] Last Admin: 06/10/17 22:36 Dose: 100 mg Tamsulosin HCl (Flomax) 0.4 mg PO DAILY [facility] Last Admin: 06/11/17 09:09 Dose: 0.4 mg - Labs Labs: 06/03/17 08:46 06/03/17 09:30 - Constitutional Appears: Chronically Ill - Head Exam Head Exam: ATRAUMATIC, NORMAL INSPECTION, NORMOCEPHALIC - Eye Exam Eye Exam: Normal appearance - ENT Exam ENT Exam: Mucous Membranes Moist - Neck Exam Neck Exam: Full ROM - Respiratory Exam Respiratory Exam: Clear to Ausculation Bilateral - Cardiovascular Exam Cardiovascular Exam: REGULAR RHYTHM, +S1, +S2 - GI/Abdominal Exam GI & Abdominal Exam: Soft, Normal Bowel Sounds - Neurological Exam Neurological Exam: Alert, Altered, Awake - Psychiatric Exam Psychiatric exam: Anxious - Skin Skin Exam: Normal Color Assessment and Plan (1) DVT prophylaxis Status: Acute (2) Delirium due to general medical condition Status: Acute (3) Recurrent seizures Status: Chronic (4) UTI (urinary tract infection) Status: Acute (5) Anxiety Status: Chronic (6) Depression Status: Chronic (7) Multiple sclerosis Status: Chronic (8) Debility Status: Chronic (9) Fever Status: Acute (10) Fever and chills Status: Acute - Assessment and Plan (Free Text) Plan: Continue present rx. Will follow UC
[2017-06-11] MEDS: Fluconazole IV 200mg/100 ml NS 100 ML IVPB SCH (17:18)
[2017-06-12] MEDS: Lactobacillus Acidophilus 500 MU Cap PO SCH ×2 (09:00→16:59)
[2017-06-12] MEDS: Linezolid 600 mg in D5W 300 ml 600 MG/300 ML BAG IVPB SCH ×2 (09:03→21:42)
[2017-06-12] MEDS: Fluconazole IV 200mg/100 ml NS 100 ML IVPB SCH (17:00)
--- NOTE | 2017-06-12 17:02 | CP.PCM.PN ---
Subjective - Date & Time of Evaluation Date of Evaluation: 06/12/17 Time of Evaluation: 17:02 - Subjective Subjective: Comfortable Objective - Vital Signs/Intake and Output Vital Signs (last 24 hours): Temp Pulse Resp BP Pulse Ox 98.1 F 78 20 102/63 94 L 06/12/17 16:38 06/12/17 16:38 06/12/17 16:38 06/12/17 16:38 06/12/17 16:38 - Medications Medications: Current Medications Acetaminophen (Tylenol 325mg Tab) 650 mg PO Q6 PRN PRN Reason: Fever >100.4 F Baclofen (Lioresal) 20 mg PO TID [facility] Last Admin: 06/12/17 13:01 Dose: 20 mg Docusate Sodium (Colace) 100 mg PO BID [facility] Last Admin: 06/12/17 09:01 Dose: 100 mg Fentanyl (Duragesic) 1 patch TD Q3D [facility] PRN Reason: Protocol Last Admin: 06/11/17 09:13 Dose: 1 patch Home Med (Dimethyl Fumarate [Tecfidera]) 240 mg PO BID [facility] Last Admin: 06/12/17 09:00 Dose: 240 mg Linezolid (Zyvox 600mg/300ml D5w) 600 mg in 300 mls @ 300 mls/hr IVPB Q12 [facility] PRN Reason: Protocol Last Admin: 06/12/17 09:03 Dose: 300 mls/hr Fluconazole (Diflucan Iv 200 Mg/100 Ml Ns) 100 mls @ 100 mls/hr IVPB DAILY@ 1700 [facility] Last Admin: 06/11/17 17:18 Dose: 100 mls/hr Lactobacillus Acidophilus (Bacid Acidophilus) 1 cap PO BID [facility] Last Admin: 06/12/17 09:00 Dose: 1 cap Lamotrigine (Lamictal) 200 mg PO BID [facility] Last Admin: 06/12/17 09:02 Dose: 200 mg Levetiracetam (Keppra) 1,000 mg PO TID [facility] Last Admin: 06/12/17 13:00 Dose: 1,000 mg Memantine (Namenda) 10 mg PO DAILY [facility] Last Admin: 06/12/17 09:01 Dose: 10 mg Quetiapine Fumarate (Seroquel) 100 mg PO HS [facility] Last Admin: 06/11/17 21:05 Dose: 100 mg Tamsulosin HCl (Flomax) 0.4 mg PO DAILY [facility] Last Admin: 06/12/17 09:02 Dose: 0.4 mg - Labs Labs: 06/03/17 08:46 06/03/17 09:30 - Constitutional Appears: Confused, Chronically Ill - Head Exam Head Exam: ATRAUMATIC, NORMAL INSPECTION, NORMOCEPHALIC - ENT Exam ENT Exam: Mucous Membranes Moist - Neck Exam Neck Exam: Full ROM - Respiratory Exam Respiratory Exam: Clear to Ausculation Bilateral - Cardiovascular Exam Cardiovascular Exam: REGULAR RHYTHM, +S1, +S2 - GI/Abdominal Exam GI & Abdominal Exam: Soft, Normal Bowel Sounds - Neurological Exam Neurological Exam: Alert, Altered, Awake - Psychiatric Exam Psychiatric exam: Normal Affect Assessment and Plan (1) DVT prophylaxis Status: Acute (2) Delirium due to general medical condition Status: Acute (3) Recurrent seizures Status: Chronic (4) UTI (urinary tract infection) Status: Acute (5) Anxiety Status: Chronic (6) Depression Status: Chronic (7) Multiple sclerosis Status: Chronic (8) Debility Status: Chronic (9) Fever Status: Acute (10) Fever and chills Status: Acute - Assessment and Plan (Free Text) Plan: Continue present rx.
[2017-06-13 08:13] VITALS: BP 106/65; PULSE 80; TEMP 97.6; O2SAT 98
[2017-06-13] MEDS: Lactobacillus Acidophilus 500 MU Cap PO SCH (09:44)
[2017-06-13] MEDS: Linezolid 600 mg in D5W 300 ml 600 MG/300 ML BAG IVPB SCH (09:45)
--- NOTE | 2017-06-13 13:00 | CP.PCM.DIS ---
Provider - Provider Date of Admission: 05/28/17 19:00 Attending physician: Leo Mroris MD Time Spent in preparation of Discharge (in minutes): 30 Diagnosis - Discharge Diagnosis (1) DVT prophylaxis Status: Acute (2) Delirium due to general medical condition Status: Acute (3) Recurrent seizures Status: Chronic (4) UTI (urinary tract infection) Status: Acute (5) Anxiety Status: Chronic Priority: Medium (6) Depression Status: Chronic Priority: Medium (7) Multiple sclerosis Status: Chronic (8) Debility Status: Chronic (9) Fever Status: Acute (10) Fever and chills Status: Acute Hospital Course - Lab Results Lab Results: Micro Results 06/10/17 18:51 Urine,Catheterized Urine Culture - Final No Growth (<1,000 CFU/ML) 06/01/17 12:30 Blood Blood Culture - Final NO GROWTH AFTER 5 DAYS 06/01/17 12:30 Blood Gram Stain - Final TEST NOT PERFORMED 06/01/17 20:37 Urine,Clean Catch Urine Culture - Final Enterococcus Faecalis Most Recent Lab Values WBC 8.5 K/uL (4.8-10.8) 06/03/17 08:46 RBC 4.34 Mil/uL (4.40-5.90) L 06/03/17 08:46 Hgb 12.6 g/dL (12.0-18.0) 06/03/17 08:46 Hct 37.8 % (35.0-51.0) 06/03/17 08:46 MCV 87.0 fl (80.0-94.0) 06/03/17 08:46 MCH 29.0 pg (27.0-31.0) 06/03/17 08:46 MCHC 33.3 g/dL (33.0-37.0) 06/03/17 08:46 RDW 15.3 % (11.5-14.5) H 06/03/17 08:46 Plt Count 335 K/uL (130-400) 06/03/17 08:46 MPV 7.0 fl (7.2-11.7) L 06/03/17 08:46 Neut % (Auto) 46.6 % (50.0-75.0) L 06/03/17 08:46 Lymph % (Auto) 33.5 % (20.0-40.0) 06/03/17 08:46 [place] % (Auto) 10.8 % (0.0-10.0) H 06/03/17 08:46 Eos % (Auto) 8.4 % (0.0-4.0) H 06/03/17 08:46 Baso % (Auto) 0.7 % (0.0-2.0) 06/03/17 08:46 Neut # 4.0 K/uL (1.8-7.0) 06/03/17 08:46 Lymph # 2.8 K/uL (1.0-4.3) 06/03/17 08:46 [place] # 0.9 K/uL (0.0-0.8) H 06/03/17 08:46 Eos # 0.7 K/uL (0.0-0.7) 06/03/17 08:46 Baso # 0.1 K/uL (0.0-0.2) 06/03/17 08:46 Sodium 144 mmol/l (132-148) 06/03/17 09:30 Potassium 4.4 MMOL/L (3.6-5.0) 06/03/17 09:30 Chloride 105 mmol/L (98-107) 06/03/17 09:30 Carbon Dioxide 28 mmol/L (22-30) 06/03/17 09:30 Anion Gap 15 (10-20) 06/03/17 09:30 BUN 14 mg/dl (9-20) 06/03/17 09:30 Creatinine 0.6 mg/dL (0.8-1.5) L 06/03/17 09:30 Est GFR ( Amer) > 60 06/03/17 09:30 Est GFR (Non-Af Amer) > 60 06/03/17 09:30 Random Glucose 95 mg/dL (75-110) 06/03/17 09:30 Calcium 9.0 mg/dL (8.4-10.2) 06/03/17 09:30 Phosphorus 3.5 mg/dl (2.5-4.5) 06/03/17 09:30 Magnesium 1.8 MG/DL (1.6-2.3) 06/03/17 09:30 Total Bilirubin 0.3 mg/dl (0.2-1.3) 06/03/17 09:30 Direct Bilirubin 0.2 mg/ml (0.0-0.4) 06/01/17 12:30 AST 22 U/L (17-59) 06/03/17 09:30 ALT 34 U/L (21-72) 06/03/17 09:30 Alkaline Phosphatase 67 U/L (38-126) 06/03/17 09:30 Troponin I < 0.0120 ng/mL (0.00-0.120) 06/03/17 09:30 Total Protein 7.6 G/DL (6.3-8.2) 06/03/17 09:30 Albumin 4.3 g/dL (3.5-5.0) 06/03/17 09:30 Globulin 3.3 gm/dL (2.2-3.9) 06/03/17 09:30 Albumin/Globulin Ratio 1.3 (1.0-2.1) 06/03/17 09:30 Vitamin B12 334 pg/mL (239-931) 06/03/17 09:30 Folate 7.1 ng/mL 06/03/17 09:30 Urine Color Straw (YELLOW) 06/01/17 20:37 Urine Clarity Clear (Clear) 06/01/17 20:37 Urine pH 6.0 (5.0-8.0) 06/01/17 20:37 Ur Specific [place] 1.005 (1.003-1.030) 06/01/17 20:37 Urine Protein Negative mg/dL (NEGATIVE) 06/01/17 20:37 Urine Glucose (UA) Neg mg/dL (Normal) 06/01/17 20:37 Urine Ketones Negative mg/dL (NEGATIVE) 06/01/17 20:37 Urine Blood Negative (NEGATIVE) 06/01/17 20:37 Urine Nitrate Negative (NEGATIVE) 06/01/17 20:37 Urine Bilirubin Negative (NEGATIVE) 06/01/17 20:37 Urine Urobilinogen 0.2-1.0 mg/dL (0.2-1.0) 06/01/17 20:37 Ur Leukocyte Esterase Neg [place]/uL (Negative) 06/01/17 20:37 Urine RBC (Auto) 2 /hpf (0-3) 06/01/17 20:37 Urine Microscopic WBC 3 /hpf (0-5) 06/01/17 20:37 Ur Squamous Epith Cells 2 /hpf (0-5) 06/01/17 20:37 - Hospital Course Hospital Course: 51 y/o male presented in with mental status changes and UTI. Transferred to TCU for further rx. He well responded ti the rx. The most recent culter are negative. Will dc home. Discharge Exam - Head Exam Head Exam: ATRAUMATIC, NORMAL INSPECTION, NORMOCEPHALIC - Eye Exam Eye Exam: Normal appearance - Neck Exam Neck exam: Full Rom - Respiratory Exam Respiratory Exam: Clear to PA & Lateral - Cardiovascular Exam Cardiovascular Exam: REGULAR RHYTHM, +S1, +S2 - GI/Abdominal Exam GI & Abdominal Exam: Normal Bowel Sounds - Neurological Exam Neurological exam: Alert, Altered - Psychiatric Exam Psychiatric exam: Normal Affect - Skin Skin Exam: Normal Color Discharge Plan - Follow Up Plan Condition: GOOD Disposition: HOME/ ROUTINE Instructions: Urinary Tract Infection in Men (DC), Recurrent Seizures in Adults (DC)
== END 2017-06-13 13:15 | disposition home health service (06) | DRG 690 ==
LOC: H.TCU 19:00
PROVIDERS: ADMIT Internal Medicine; ATTEND Internal Medicine
PROC: 3E0234Z Introduction of Serum, Toxoid and Vaccine into Muscle, Percutaneous Approach (ICD-10-PCS; principal; 2017-05-28)
PROC: 3E03329 Introduction of Other Anti-infective into Peripheral Vein, Percutaneous Approach (ICD-10-PCS; 2017-05-28)
PROC: F07Z9FZ Gait Training/Functional Ambulation Treatment using Assistive, Adaptive, Supportive or Protective Equipment (ICD-10-PCS; 2017-05-28)
PROC: F08Z4FZ Home Management Treatment using Assistive, Adaptive, Supportive or Protective Equipment (ICD-10-PCS; 2017-05-28)
PROC: F07M6FZ Therapeutic Exercise Treatment of Musculoskeletal System - Whole Body using Assistive, Adaptive, Supportive or Protective Equipment (ICD-10-PCS; 2017-05-29)
PROC: 0HBRXZZ Excision of Toe Nail, External Approach (ICD-10-PCS; 2017-06-03)
PROC: 0HBRXZZ Excision of Toe Nail, External Approach (ICD-10-PCS; 2017-06-03)
PROC: 0HBRXZZ Excision of Toe Nail, External Approach (ICD-10-PCS; 2017-06-03)
PROC: 0HBRXZZ Excision of Toe Nail, External Approach (ICD-10-PCS; 2017-06-03)
PROC: 0HBRXZZ Excision of Toe Nail, External Approach (ICD-10-PCS; 2017-06-03)
PROC: 0HBRXZZ Excision of Toe Nail, External Approach (ICD-10-PCS; 2017-06-03)
PROC: 0HBRXZZ Excision of Toe Nail, External Approach (ICD-10-PCS; 2017-06-03)
PROC: 0HBRXZZ Excision of Toe Nail, External Approach (ICD-10-PCS; 2017-06-03)
PROC: 0HBRXZZ Excision of Toe Nail, External Approach (ICD-10-PCS; 2017-06-03)
PROC: 0HBRXZZ Excision of Toe Nail, External Approach (ICD-10-PCS; 2017-06-03)
DX: N39.0 Urinary tract infection, site not specified (principal); F05 Delirium due to known physiological condition; F03.90 Unspecified dementia, unspecified severity, without behavioral disturbance, psychotic disturbance, mood disturbance, and anxiety; G82.20 Paraplegia, unspecified; G35 Multiple sclerosis; I12.9 Hypertensive chronic kidney disease with stage 1 through stage 4 chronic kidney disease, or unspecified chronic kidney disease; B95.2 Enterococcus as the cause of diseases classified elsewhere; N18.9 Chronic kidney disease, unspecified; L60.8 Other nail disorders; J44.9 Chronic obstructive pulmonary disease, unspecified; G40.909 Epilepsy, unspecified, not intractable, without status epilepticus; R53.81 Other malaise; Z86.711 Personal history of pulmonary embolism; Z86.718 Personal history of other venous thrombosis and embolism; Z87.01 Personal history of pneumonia (recurrent); Z87.440 Personal history of urinary (tract) infections; Z87.442 Personal history of urinary calculi; E78.00 Pure hypercholesterolemia, unspecified; F32.9 Major depressive disorder, single episode, unspecified; F41.9 Anxiety disorder, unspecified; H54.62 Unqualified visual loss, left eye, normal vision right eye; Z23 Encounter for immunization; Z74.01 Bed confinement status; R41.9 Unspecified symptoms and signs involving cognitive functions and awareness

== ENCOUNTER 2017-07-03 20:06 | Inpatient (IN) | payer OTHER ==
[2017-07-03 20:07] VITALS: BMI 30.2
[2017-07-03] MEDS ORDERED: Piperacillin/Tazobact 3.375 gm Inj IVPB SCH (20:45)
[2017-07-03] MEDS: Piperacillin/Tazobact 3.375 GM in Sodium Chloride 0.9% 100 ML IVPB SCH (22:32)
[2017-07-04] MEDS: Piperacillin/Tazobact 3.375 GM in Sodium Chloride 0.9% 100 ML IVPB SCH ×5 (04:21→22:11)
[2017-07-04] MEDS: Lactobacillus Acidophilus 500 MU Cap PO SCH ×2 (08:34→17:14)
[2017-07-04] MEDS: Fluconazole IV 200mg/100 ml NS 100 ML IVPB SCH (08:34)
[2017-07-04] MEDS: DIMETHYL FUMARATE 240 MG PO SCH ×2 (08:36→17:15)
[2017-07-04] MEDS: Enoxaparin 40 mg Syringe SC SCH (08:36)
[2017-07-04] MEDS ORDERED: [UNRECOGNIZED DRUG - OTHER] IV SCH (09:00)
[2017-07-04] MEDS ORDERED: FLUCONAZOLE 200 MG/100 ML IV SCH (09:00)
[2017-07-04 09:32] LABS: BASO % 0.5 % (0.0-2.0); EOS # 0.7 K/uL (0.0-0.7); EOS % 7.9 % (0.0-4.0); HEMATOCRIT 38.4 % (35.0-51.0); LYMPH # 3.7 K/uL (1.0-4.3); LYMPH % 40.8 % (20.0-40.0); MEAN CELL VOLUME 87.4 fl (80.0-94.0); MEAN CORPUSCULAR HEMOGLOBIN 28.7 pg (27.0-31.0); MEAN CORPUSCULAR HGB CONC 32.8 g/dL (33.0-37.0); MEAN PLATELET VOLUME 7.6 fl (7.2-11.7); MONO # 0.7 K/uL (0.0-0.8); MONO % 7.6 % (0.0-10.0); NEUT # 3.9 K/uL (1.8-7.0); NEUT % 43.2 % (50.0-75.0); NRBC % 0.2 % (0.0-0.0); RED CELL DISTRIBUTION WIDTH 14.6 % (11.5-14.5)
[2017-07-04 09:43] LABS: BLOOD UREA NITROGEN 9 mg/dl (9-20); CALCIUM 9.1 mg/dL (8.4-10.2); CARBON DIOXIDE 29 mmol/L (22-30); CHLORIDE 104 mmol/L (98-107); GFR AFRICAN-AMERICAN > 60; GLUCOSE,RANDOM 93 mg/dL (75-110); POTASSIUM 4.2 MMOL/L (3.6-5.0); SODIUM 141 mmol/l (132-148)
--- NOTE | 2017-07-04 13:34 | CP.PCM.HP ---
History of Present Illness - History of Present Illness History of Present Illness: 51 yo male with past medical hx Dementia, Depression, Deep Vein Thrombosis, Kidney Stones, Multiple Sclerosis with severe neuro deficit paraplegia bed ridding since 2008, Peripheral Edema , Pneumonia, Pulmonary Embolism , Chronic Kidney Disease, Seizures, recurrent UTI and sepsis presented in ER with seizure. A UA reveled UTI. Patient has hx of status epilepticus and sepsis related to the UTI. Patien well responded to present rx. Will dc to TCU for further Rx Present on Admission - Present on Admission Any Indicators Present on Admission: No Review of Systems - Constitutional Constitutional: As Per HPI - EENT Eyes: As Per HPI - Cardiovascular Cardiovascular: As Per HPI - Respiratory Respiratory: As Per HPI - Gastrointestinal Gastrointestinal: As Per HPI - Musculoskeletal Musculoskeletal: As Per HPI - Neurological Neurological: As Per HPI Past Patient History - Infectious Disease Hx of Infectious Diseases: None - Tetanus Immunizations Tetanus Immunization: Unknown - Past Medical History & Family History Past Medical History?: Yes - Past Social History Smoking Status: Never Smoked - CARDIAC Hx Hypertension: Yes - PULMONARY Hx Chronic Obstructive Pulmonary Disease (COPD): Yes - NEUROLOGICAL Hx Dementia: Yes Hx Multiple Sclerosis: Yes Hx Seizures: Yes - HEENT Hx HEENT Problems: Yes (poor vision left eye) - RENAL Hx Chronic Kidney Disease: Yes Hx Kidney Stones: Yes - ENDOCRINE/METABOLIC Hx Endocrine Disorders: No - HEMATOLOGICAL/ONCOLOGICAL Hx AIDS: No Hx Anemia: Yes Hx Human Immunodeficiency Virus (HIV): No - INTEGUMENTARY Hx Dermatological Problems: No - MUSCULOSKELETAL/RHEUMATOLOGICAL Hx Arthritis: Yes Hx Falls: No - GASTROINTESTINAL Hx Gastrointestinal Disorders: Yes (constipation) - GENITOURINARY/GYNECOLOGICAL Hx Genitourinary Disorders: Yes Hx Incontinence: Yes Hx Prostate Problems: Yes Hx Urinary Tract Infection: Yes - PSYCHIATRIC Hx Anxiety: Yes Hx Depression: Yes Hx Substance Use: No - SURGICAL HISTORY Hx Surgeries: Yes Other/Comment: cysto with removal of stent 05/19/16- kidney stones - ANESTHESIA Hx Anesthesia: Yes Hx Anesthesia Reactions: No Hx Malignant Hyperthermia: No Meds Allergies/Adverse Reactions: Allergies Allergy/AdvReac Type Severity Reaction Status Date / Time cefazolin Allergy RASH, Verified 05/28/17 19:00 ITCHINESS Physical Exam - Constitutional Appears: Confused, Chronically Ill - Head Exam Head Exam: ATRAUMATIC, NORMAL INSPECTION, NORMOCEPHALIC - Eye Exam Eye Exam: Normal appearance - ENT Exam ENT Exam: Mucous Membranes Moist - Neck Exam Neck exam: Positive for: Full Rom - Respiratory Exam Respiratory Exam: Clear to Auscultation Bilateral - Cardiovascular Exam Cardiovascular Exam: REGULAR RHYTHM, +S1, +S2 - GI/Abdominal Exam GI & Abdominal Exam: Normal Bowel Sounds - Neurological Exam Neurological exam: Alert, Altered, CN II-XII Intact Additional comments: paraplegic - Psychiatric Exam Psychiatric exam: Anxious - Skin Skin Exam: Normal Color Results - Vital Signs Recent Vital Signs: Last Vital Signs Temp 97.0 F L 07/04/17 08:14 Pulse 76 07/04/17 08:14 Resp 20 07/04/17 08:14 BP 96/56 L 07/04/17 08:14 Pulse Ox 95 07/04/17 08:14 - Labs Result Diagrams: 07/04/17 08:30 07/04/17 08:30 Labs: Laboratory Results - last 24 hr 07/04/17 07/04/17 08:30 08:30 WBC 9.0 RBC 4.39 L Hgb 12.6 Hct 38.4 MCV 87.4 MCH 28.7 MCHC 32.8 L RDW 14.6 H Plt Count 264 MPV 7.6 Neut % (Auto) 43.2 L Lymph % (Auto) 40.8 H [place] % (Auto) 7.6 Eos % (Auto) 7.9 H Baso % (Auto) 0.5 Neut # 3.9 Lymph # 3.7 [place] # 0.7 Eos # 0.7 Baso # 0.0 Sodium 141 Potassium 4.2 Chloride 104 Carbon Dioxide 29 Anion Gap 12 BUN 9 Creatinine 0.8 Est GFR ( Amer) > 60 Est GFR (Non-Af Amer) > 60 Random Glucose 93 Calcium 9.1 Assessment & Plan (1) DVT prophylaxis Status: Acute (2) Seizure Status: Acute (3) UTI (urinary tract infection) Status: Acute (4) Debility Status: Chronic (5) Depression Status: Chronic Priority: Medium (6) Multiple sclerosis Status: Chronic - Assessment and Plan (Free Text) Plan: Continue present rx
--- NOTE | 2017-07-04 13:37 | CP.PCM.CON ---
History of Present Illness - History of Present Illness History of Present Illness: S/P UTI SEPSIS COMPLEX HX- MS, PARAPLEGIA, UTI, SEPSIS, DVT , OPE, SEIZURES IV RX IN PROGRESS Review of Systems - Review of Systems All systems: reviewed and no additional remarkable complaints except - Constitutional Constitutional: As Per HPI - EENT Eyes: absent: As Per HPI, Blind Spots, Blurred Vision, Change in Vision, Decreased Night Vision, Diplopia, Discharge, Dry Eye, Exophthalmos, Floaters, Irritation, Itchy Eyes, Loss of Peripheral Vision, Pain, Photophobia, Requires Corrective Lenses, Sees Flashes, Spots in Vision, Tunnel Vision, Other Visual Disturbances, Loss of Vision, Other Ears: absent: As Per HPI, Decreased Hearing, Ear Discharge, Ear Pain, Tinnitus, Abnormal Hearing, Disequilibrium, Dizziness, Other Nose/Mouth/Throat: absent: As Per HPI, Epistaxis, Nasal Congestion, Nasal Discharge, Nasal Obstruction, Nasal Trauma, Nose Pain, Post Nasal Drip, Sinus Pain, Sinus Pressure, Bleeding Gums, Change in Voice, Dental Pain, Dry Mouth, Dysphagia, Halitosis, Hoarsness, Lip Swelling, Mouth Lesions, Mouth Pain, Odynophagia, Sore Throat, Throat Swelling, Tongue Swelling, Facial Pain, Neck Pain, Neck Mass, Other - Cardiovascular Cardiovascular: absent: As Per HPI, Acrocyanosis, Chest Pain, Chest Pain at Rest , Chest Pain with Activity, Claudication, Diaphoresis, Dyspnea, Dyspnea on Exertion, Edema, Irregular Heart Rhythm, Pain Radiating to Arm/Neck/Jaw, Leg Edema, Leg Ulcers, Lightheadedness, Orthopnea, Palpitations, Paroxysmal Nocturnal Dyspnea, Pedal Edema, Radiating Pain, Rapid Heart Rate, Slow Heart Rate, Syncope, Other - Respiratory Respiratory: absent: As Per HPI, Cough, Dyspnea, Hemoptysis, Dyspnea on Exertion , Wheezing, Snoring, Stridor, Pain on Inspiration, Chest Congestion, Excessive Mucous Production, Change in Mucous Color, Pain with Coughing, Other - Gastrointestinal Gastrointestinal: absent: As Per HPI, Abdominal Pain, Belching, Bloating, Change in Bowel Habits, Change in Stool Character, Coffee Ground Emesis, Constipation, Cramping, Diarrhea, Dyspepsia, Dysphagia, Early Satiety, Excessive Flatus, Fecal Incontinence, Heartburn, Hematemesis, Hematochezia, Loose Stools, Melena, Nausea, Odynophagia, Temesmus, Vomiting, Other - Genitourinary Genitourinary: As Per HPI - Musculoskeletal Musculoskeletal: absent: As Per HPI, Abnormal Gait, Arthralgias, Atrophy, Back Pain, Deformity, Joint Swelling, Limited Range of Motion, Loss of Height, Muscle Cramps, Muscle Weakness, Myalgias, Neck Pain, Numbness, Radiating Pain into Limb, Stiffness, Tingling, Other - Integumentary Integumentary: absent: As Per HPI, Acne, Alopecia, Bleeding Lesions, Change in Hair, Change in Nails, Change in Pigmentation, Changing Lesions, Dry Skin, Erythema, Furuncle, Hirsutism, Lesions, New Lesions, Non-Healing Lesions, Photosensitivity, Pruritus, Rash, Skin Pain, Skin Ulcer, Sores, Striae, Swelling , Unusual Bruising, Wounds, Jaundice, Other - Neurological Neurological: As Per HPI - Psychiatric Psychiatric: absent: As Per HPI, Abnormal Sleep Pattern, Anhedonia, Anxiety, Auditory Hallucinations, Behavioral Changes, Change in Appetite, Change in Libido, Confusion, Depression, Difficulty Concentrating, Hallucinations, Homicidal Ideation, Hopelessness, Irritability, Memory Loss, Mood Swings, Panic Attacks, Paranoia, Suicidal Ideation, Visual Hallucinations, Tactile Hallucinations, Other - Endocrine Endocrine: absent: As Per HPI, Change in Body Appearance, Change in Libido, Cold Intolorance, Deepening of Voice, Excessive Sweating, Fatigue, Flushing, Heat Intolorance, Increase in Ring/Shoe/Hat Size, Palpitations, Polydipsia, Polyphagia, Polyuria, Other - Hematologic/Lymphatic Hematologic: absent: As Per HPI, Easy Bleeding, Easy Bruising, Lymphadenopathy, Other Past Patient History - Infectious Disease Hx of Infectious Diseases: None - Tetanus Immunizations Tetanus Immunization: Unknown - Past Medical History & Family History Past Medical History?: Yes - Past Social History Smoking Status: Never Smoked - CARDIAC Hx Hypertension: Yes - PULMONARY Hx Chronic Obstructive Pulmonary Disease (COPD): Yes - NEUROLOGICAL Hx Dementia: Yes Hx Multiple Sclerosis: Yes Hx Seizures: Yes - HEENT Hx HEENT Problems: Yes (poor vision left eye) - RENAL Hx Chronic Kidney Disease: Yes Hx Kidney Stones: Yes - ENDOCRINE/METABOLIC Hx Endocrine Disorders: No - HEMATOLOGICAL/ONCOLOGICAL Hx AIDS: No Hx Anemia: Yes Hx Human Immunodeficiency Virus (HIV): No - INTEGUMENTARY Hx Dermatological Problems: No - MUSCULOSKELETAL/RHEUMATOLOGICAL Hx Arthritis: Yes Hx Falls: No - GASTROINTESTINAL Hx Gastrointestinal Disorders: Yes (constipation) - GENITOURINARY/GYNECOLOGICAL Hx Genitourinary Disorders: Yes Hx Incontinence: Yes Hx Prostate Problems: Yes Hx Urinary Tract Infection: Yes - PSYCHIATRIC Hx Anxiety: Yes Hx Depression: Yes Hx Substance Use: No - SURGICAL HISTORY Hx Surgeries: Yes Other/Comment: cysto with removal of stent 05/19/16- kidney stones - ANESTHESIA Hx Anesthesia: Yes Hx Anesthesia Reactions: No Hx Malignant Hyperthermia: No Meds Allergies/Adverse Reactions: Allergies Allergy/AdvReac Type Severity Reaction Status Date / Time cefazolin Allergy RASH, Verified 05/28/17 19:00 ITCHINESS - Medications Medications: Current Medications Acetaminophen (Tylenol 325mg Tab) 650 mg PO Q6 PRN PRN Reason: Fever >100.4 F Baclofen (Lioresal) 20 mg PO TID [facility] Last Admin: 07/04/17 12:16 Dose: 20 mg Docusate Sodium (Colace) 100 mg PO BID [facility] Last Admin: 07/04/17 08:35 Dose: 100 mg Enoxaparin Sodium (Lovenox) 40 mg SC DAILY [facility] PRN Reason: Protocol Last Admin: 07/04/17 08:36 Dose: 40 mg Fentanyl (Duragesic) 1 patch TD Q72@2100 [facility] PRN Reason: Protocol Last Admin: 07/03/17 22:01 Dose: 1 patch Home Med (Dimethyl Fumarate [Tecfidera]) 240 mg PO BID [facility] Last Admin: 07/04/17 08:36 Dose: 240 mg Hydrocortisone (Cortizone 1% Cream) 1 applic TOP BID [facility] Last Admin: 07/04/17 08:36 Dose: 1 applic Fluconazole (Diflucan Iv 200 Mg/100 Ml Ns) 100 mls @ 100 mls/hr IVPB DAILY [facility] Last Admin: 07/04/17 08:34 Dose: 100 mls/hr Piperacillin Sod/Tazobactam (Sod 3.375 gm/ Sodium Chloride) 100 mls @ 100 mls/ hr IVPB Q6 [facility] Last Admin: 07/04/17 10:15 Dose: 100 mls/hr Lactobacillus Acidophilus (Bacid Acidophilus) 1 cap PO BID [facility] Last Admin: 07/04/17 08:34 Dose: 1 cap Lamotrigine (Lamictal) 200 mg PO BID [facility] Last Admin: 07/04/17 08:36 Dose: 200 mg Levetiracetam (Keppra) 2,000 mg PO BID [facility] Last Admin: 07/04/17 08:36 Dose: 2,000 mg Nystatin (Mycostatin Cream) 1 applic TOP TID [facility] Last Admin: 07/04/17 12:15 Dose: 1 applic Quetiapine Fumarate (Seroquel) 100 mg PO HS [facility] Last Admin: 07/03/17 22:03 Dose: 100 mg Tamsulosin HCl (Flomax) 0.4 mg PO DAILY [facility] Last Admin: 07/04/17 08:36 Dose: 0.4 mg Physical Exam - Constitutional Appears: Non-toxic, Chronically Ill - Head Exam Head Exam: NORMOCEPHALIC - Eye Exam Eye Exam: absent: Scleral icterus - ENT Exam ENT Exam: Mucous Membranes Dry, Normal External Ear Exam - Neck Exam Neck exam: Negative for: Lymphadenopathy - Respiratory Exam Respiratory Exam: Decreased Breath Sounds - Cardiovascular Exam Cardiovascular Exam: REGULAR RHYTHM - GI/Abdominal Exam GI & Abdominal Exam: Diminished Bowel Sounds, Soft - Rectal Exam Rectal Exam: Deferred - Exam Exam: NORMAL INSPECTION - Extremities Exam Extremities exam: Negative for: pedal edema - Back Exam Back exam: absent: CVA tenderness (L), CVA tenderness (R) - Neurological Exam Neurological exam: Alert, Altered, CN II-XII Intact, Motor Sensory Deficit - Psychiatric Exam Psychiatric exam: Depressed - Skin Skin Exam: Dry Results - Vital Signs Recent Vital Signs: Last Vital Signs Temp 97.0 F L 07/04/17 08:14 Pulse 76 07/04/17 08:14 Resp 20 07/04/17 08:14 BP 96/56 L 07/04/17 08:14 Pulse Ox 95 07/04/17 08:14 - Labs Result Diagrams: 07/04/17 08:30 07/04/17 08:30 Labs: Laboratory Results - last 24 hr 07/04/17 07/04/17 08:30 08:30 WBC 9.0 RBC 4.39 L Hgb 12.6 Hct 38.4 MCV 87.4 MCH 28.7 MCHC 32.8 L RDW 14.6 H Plt Count 264 MPV 7.6 Neut % (Auto) 43.2 L Lymph % (Auto) 40.8 H [place] % (Auto) 7.6 Eos % (Auto) 7.9 H Baso % (Auto) 0.5 Neut # 3.9 Lymph # 3.7 [place] # 0.7 Eos # 0.7 Baso # 0.0 Sodium 141 Potassium 4.2 Chloride 104 Carbon Dioxide 29 Anion Gap 12 BUN 9 Creatinine 0.8 Est GFR ( Amer) > 60 Est GFR (Non-Af Amer) > 60 Random Glucose 93 Calcium 9.1 Assessment & Plan - Assessment and Plan (Free Text) Assessment: recurrent uti's ms exac seizures bedridden state- quadraparesis cont iv rx
[2017-07-04] MEDS: Mupirocin 2% Cream TOP SCH (17:15)
--- NOTE | 2017-07-04 18:33 | CP.PCM.CON ---
History of Present Illness - History of Present Illness History of Present Illness: PROGRESS NOTE DICTATED NO FURTHER WORK UP IS NEEDED CONTINUE THE PRESENT MANAGEMENT APPROPRIATE ANTIBIOTIC FOR UTI AND HYDRATION Past Patient History - Infectious Disease Hx of Infectious Diseases: None - Tetanus Immunizations Tetanus Immunization: Unknown - Past Medical History & Family History Past Medical History?: Yes - Past Social History Smoking Status: Never Smoked - CARDIAC Hx Hypertension: Yes - PULMONARY Hx Chronic Obstructive Pulmonary Disease (COPD): Yes - NEUROLOGICAL Hx Dementia: Yes Hx Multiple Sclerosis: Yes Hx Seizures: Yes - HEENT Hx HEENT Problems: Yes (poor vision left eye) - RENAL Hx Chronic Kidney Disease: Yes Hx Kidney Stones: Yes - ENDOCRINE/METABOLIC Hx Endocrine Disorders: No - HEMATOLOGICAL/ONCOLOGICAL Hx AIDS: No Hx Anemia: Yes Hx Human Immunodeficiency Virus (HIV): No - INTEGUMENTARY Hx Dermatological Problems: No - MUSCULOSKELETAL/RHEUMATOLOGICAL Hx Arthritis: Yes Hx Falls: No - GASTROINTESTINAL Hx Gastrointestinal Disorders: Yes (constipation) - GENITOURINARY/GYNECOLOGICAL Hx Genitourinary Disorders: Yes Hx Incontinence: Yes Hx Prostate Problems: Yes Hx Urinary Tract Infection: Yes - PSYCHIATRIC Hx Anxiety: Yes Hx Depression: Yes Hx Substance Use: No - SURGICAL HISTORY Hx Surgeries: Yes Other/Comment: cysto with removal of stent 05/19/16- kidney stones - ANESTHESIA Hx Anesthesia: Yes Hx Anesthesia Reactions: No Hx Malignant Hyperthermia: No Meds Allergies/Adverse Reactions: Allergies Allergy/AdvReac Type Severity Reaction Status Date / Time cefazolin Allergy RASH, Verified 05/28/17 19:00 ITCHINESS - Medications Medications: Current Medications Acetaminophen (Tylenol 325mg Tab) 650 mg PO Q6 PRN PRN Reason: Fever >100.4 F Baclofen (Lioresal) 20 mg PO TID [facility] Last Admin: 07/04/17 17:16 Dose: 20 mg Docusate Sodium (Colace) 100 mg PO BID [facility] Last Admin: 07/04/17 17:15 Dose: 100 mg Enoxaparin Sodium (Lovenox) 40 mg SC DAILY [facility] PRN Reason: Protocol Last Admin: 07/04/17 08:36 Dose: 40 mg Fentanyl (Duragesic) 1 patch TD Q72@2100 [facility] PRN Reason: Protocol Last Admin: 07/03/17 22:01 Dose: 1 patch Home Med (Dimethyl Fumarate [Tecfidera]) 240 mg PO BID [facility] Last Admin: 07/04/17 17:15 Dose: 240 mg Fluconazole (Diflucan Iv 200 Mg/100 Ml Ns) 100 mls @ 100 mls/hr IVPB DAILY [facility] Last Admin: 07/04/17 08:34 Dose: 100 mls/hr Piperacillin Sod/Tazobactam (Sod 3.375 gm/ Sodium Chloride) 100 mls @ 100 mls/ hr IVPB Q6 [facility] Last Admin: 07/04/17 16:01 Dose: 100 mls/hr Lactic Acid (Lac-Hydrin 12% Lotion (225 G)) 1 applic TOP TID [facility] Last Admin: 07/04/17 17:14 Dose: 1 applic Lactobacillus Acidophilus (Bacid Acidophilus) 1 cap PO BID [facility] Last Admin: 07/04/17 17:14 Dose: 1 cap Lamotrigine (Lamictal) 200 mg PO BID [facility] Last Admin: 07/04/17 17:16 Dose: 200 mg Levetiracetam (Keppra) 2,000 mg PO BID [facility] Last Admin: 07/04/17 17:16 Dose: 2,000 mg Mupirocin (Bactroban Cream) 1 applic TOP BID [facility] Last Admin: 07/04/17 17:15 Dose: 1 applic Quetiapine Fumarate (Seroquel) 100 mg PO HS [facility] Last Admin: 07/03/17 22:03 Dose: 100 mg Tamsulosin HCl (Flomax) 0.4 mg PO DAILY [facility] Last Admin: 07/04/17 08:36 Dose: 0.4 mg Results - Vital Signs Recent Vital Signs: Last Vital Signs Temp 97.7 F 07/04/17 18:04 Pulse 89 07/04/17 18:04 Resp 20 07/04/17 18:04 BP 99/67 L 07/04/17 18:04 Pulse Ox 95 07/04/17 18:04 - Labs Result Diagrams: 07/04/17 08:30 07/04/17 08:30 Labs: Laboratory Results - last 24 hr 07/04/17 07/04/17 08:30 08:30 WBC 9.0 RBC 4.39 L Hgb 12.6 Hct 38.4 MCV 87.4 MCH 28.7 MCHC 32.8 L RDW 14.6 H Plt Count 264 MPV 7.6 Neut % (Auto) 43.2 L Lymph % (Auto) 40.8 H [place] % (Auto) 7.6 Eos % (Auto) 7.9 H Baso % (Auto) 0.5 Neut # 3.9 Lymph # 3.7 [place] # 0.7 Eos # 0.7 Baso # 0.0 Sodium 141 Potassium 4.2 Chloride 104 Carbon Dioxide 29 Anion Gap 12 BUN 9 Creatinine 0.8 Est GFR ( Amer) > 60 Est GFR (Non-Af Amer) > 60 Random Glucose 93 Calcium 9.1
[2017-07-05] MEDS: Piperacillin/Tazobact 3.375 GM in Sodium Chloride 0.9% 100 ML IVPB SCH ×4 (05:04→23:08)
--- NOTE | 2017-07-05 05:21 | CON ---
DATE OF EVALUATION: 07/04/2017 REASON FOR THE FOLLOWUP: Multiple sclerosis and seizures. HISTORY OF PRESENT ILLNESS: Patient was admitted last week in the [facility] for the seizures and urinary tract infection. Patient was treated appropriately with urinary tract infection. Patient did have seizures. Due to urinary tract infection and probably subtherapeutic dose of Keppra, patient did have seizures and the Keppra dose was increased to 2000 twice a day and the patient was treated with appropriate antibiotic and hydration. Patient was transferred to transitional care unit for further management. PHYSICAL EXAMINATION: VITAL SIGNS: Blood pressure 99/67, mean arterial pressure of 77, respiratory rate 18, temperature 97.7, pulse rate 69. NEUROLOGIC EXAMINATION: Patient is more awake, alert, oriented to person, place and time. Communicable. Patient moves both upper extremities against the gravity. CRANIAL NERVE EXAMINATION: Left eye blindness with ptosis. Facial asymmetry, which is unchanged. MOTOR EXAMINATION: Tone is increased in both lower extremities, paraplegia/paraparesis. He could move right-sided toes. Left side is completely inability to move his toes. Deep tendon reflexes which are unchanged to compare with the previous examination. Plantars are upgoing on both sides. SENSORY EXAMINATION: Respond to pain symmetrically on both sides. CONCLUSION: Mr. Richard Moody has been presenting with stable end-stage multiple sclerosis with seizure disorder. RECOMMENDATIONS: Continue the seizure medication as I recommended. Continue Tecfidera for his multiple sclerosis. No further workup is needed from neuro point of view. Francisco Randall MD
[2017-07-05] MEDS: DIMETHYL FUMARATE 240 MG PO SCH ×2 (08:37→16:35)
[2017-07-05] MEDS: Enoxaparin 40 mg Syringe SC SCH (08:38)
[2017-07-05] MEDS: Mupirocin 2% Cream TOP SCH ×2 (08:39→16:36)
[2017-07-05] MEDS: Fluconazole IV 200mg/100 ml NS 100 ML IVPB SCH (08:41)
[2017-07-05] MEDS: Lactobacillus Acidophilus 500 MU Cap PO SCH ×2 (08:42→16:35)
--- NOTE | 2017-07-05 12:47 | CP.PCM.PN ---
Subjective - Date & Time of Evaluation Date of Evaluation: 07/05/17 Time of Evaluation: 12:47 - Subjective Subjective: In bed comfortable not in distress Objective - Vital Signs/Intake and Output Vital Signs (last 24 hours): Temp Pulse Resp BP Pulse Ox 97.7 F 80 20 93/63 L 95 07/05/17 07:46 07/05/17 07:46 07/05/17 07:46 07/05/17 07:46 07/05/17 07:46 - Medications Medications: Current Medications Acetaminophen (Tylenol 325mg Tab) 650 mg PO Q6 PRN PRN Reason: Fever >100.4 F Baclofen (Lioresal) 20 mg PO TID [facility] Last Admin: 07/05/17 12:29 Dose: 20 mg Docusate Sodium (Colace) 100 mg PO BID [facility] Last Admin: 07/05/17 08:38 Dose: 100 mg Enoxaparin Sodium (Lovenox) 40 mg SC DAILY [facility] PRN Reason: Protocol Last Admin: 07/05/17 08:38 Dose: 40 mg Fentanyl (Duragesic) 1 patch TD Q72@2100 [facility] PRN Reason: Protocol Last Admin: 07/03/17 22:01 Dose: 1 patch Home Med (Dimethyl Fumarate [Tecfidera]) 240 mg PO BID [facility] Last Admin: 07/05/17 08:37 Dose: 240 mg Fluconazole (Diflucan Iv 200 Mg/100 Ml Ns) 100 mls @ 100 mls/hr IVPB DAILY [facility] Last Admin: 07/05/17 08:41 Dose: 100 mls/hr Piperacillin Sod/Tazobactam (Sod 3.375 gm/ Sodium Chloride) 100 mls @ 100 mls/ hr IVPB Q6 [facility] Last Admin: 07/05/17 10:28 Dose: 100 mls/hr Lactic Acid (Lac-Hydrin 12% Lotion (225 G)) 1 applic TOP TID [facility] Last Admin: 07/05/17 12:30 Dose: 1 applic Lactobacillus Acidophilus (Bacid Acidophilus) 1 cap PO BID [facility] Last Admin: 07/05/17 08:42 Dose: 1 cap Lamotrigine (Lamictal) 200 mg PO BID [facility] Last Admin: 07/05/17 08:37 Dose: 200 mg Levetiracetam (Keppra) 2,000 mg PO BID [facility] Last Admin: 07/05/17 08:37 Dose: 2,000 mg Mupirocin (Bactroban Cream) 1 applic TOP BID [facility] Last Admin: 07/05/17 08:39 Dose: 1 applic Quetiapine Fumarate (Seroquel) 100 mg PO HS [facility] Last Admin: 07/04/17 22:11 Dose: 100 mg Tamsulosin HCl (Flomax) 0.4 mg PO DAILY [facility] Last Admin: 07/05/17 08:38 Dose: 0.4 mg - Labs Labs: 07/04/17 08:30 07/04/17 08:30 - Constitutional Appears: No Acute Distress - Head Exam Head Exam: ATRAUMATIC, NORMAL INSPECTION, NORMOCEPHALIC - Eye Exam Eye Exam: Normal appearance - Neck Exam Neck Exam: Full ROM - Respiratory Exam Respiratory Exam: Clear to Ausculation Bilateral - Cardiovascular Exam Cardiovascular Exam: REGULAR RHYTHM, +S1, +S2 - GI/Abdominal Exam GI & Abdominal Exam: Soft, Normal Bowel Sounds - Neurological Exam Neurological Exam: Alert, Altered, Awake - Psychiatric Exam Psychiatric exam: Anxious - Skin Skin Exam: Normal Color Assessment and Plan (1) DVT prophylaxis Status: Acute (2) Seizure Status: Acute (3) UTI (urinary tract infection) Status: Acute (4) Debility Status: Chronic (5) Depression Status: Chronic (6) Multiple sclerosis Status: Chronic - Assessment and Plan (Free Text) Plan: Continue present rx.
[2017-07-06] MEDS: Piperacillin/Tazobact 3.375 GM in Sodium Chloride 0.9% 100 ML IVPB SCH ×4 (04:54→22:50)
[2017-07-06] MEDS: Mupirocin 2% Cream TOP SCH ×2 (08:21→16:48)
[2017-07-06] MEDS: Lactobacillus Acidophilus 500 MU Cap PO SCH ×2 (08:22→16:49)
[2017-07-06] MEDS: Enoxaparin 40 mg Syringe SC SCH (08:22)
[2017-07-06] MEDS: Fluconazole IV 200mg/100 ml NS 100 ML IVPB SCH (08:23)
[2017-07-06] MEDS: DIMETHYL FUMARATE 240 MG PO SCH ×2 (08:23→16:49)
--- NOTE | 2017-07-06 11:24 | CP.PCM.PN ---
Subjective - Date & Time of Evaluation Date of Evaluation: 07/06/17 Time of Evaluation: 11:26 - Subjective Subjective: Patient looks comfortable, no CP no SOB no Abd pain, no v/n, no seizure Objective - Vital Signs/Intake and Output Vital Signs (last 24 hours): Temp Pulse Resp BP Pulse Ox 97.9 F 89 20 114/72 98 07/06/17 08:11 07/06/17 08:11 07/06/17 08:11 07/06/17 08:11 07/06/17 08:11 - Medications Medications: Current Medications Acetaminophen (Tylenol 325mg Tab) 650 mg PO Q6 PRN PRN Reason: Fever >100.4 F Baclofen (Lioresal) 20 mg PO TID [facility] Last Admin: 07/06/17 08:23 Dose: 20 mg Docusate Sodium (Colace) 100 mg PO BID [facility] Last Admin: 07/06/17 08:22 Dose: 100 mg Enoxaparin Sodium (Lovenox) 40 mg SC DAILY [facility] PRN Reason: Protocol Last Admin: 07/06/17 08:22 Dose: 40 mg Fentanyl (Duragesic) 1 patch TD Q72@2100 [facility] PRN Reason: Protocol Last Admin: 07/03/17 22:01 Dose: 1 patch Home Med (Dimethyl Fumarate [Tecfidera]) 240 mg PO BID [facility] Last Admin: 07/06/17 08:23 Dose: 240 mg Fluconazole (Diflucan Iv 200 Mg/100 Ml Ns) 100 mls @ 100 mls/hr IVPB DAILY [facility] Last Admin: 07/06/17 08:23 Dose: 100 mls/hr Piperacillin Sod/Tazobactam (Sod 3.375 gm/ Sodium Chloride) 100 mls @ 100 mls/ hr IVPB Q6 [facility] Last Admin: 07/06/17 10:03 Dose: 100 mls/hr Lactic Acid (Lac-Hydrin 12% Lotion (225 G)) 1 applic TOP TID [facility] Last Admin: 07/06/17 08:20 Dose: 1 applic Lactobacillus Acidophilus (Bacid Acidophilus) 1 cap PO BID [facility] Last Admin: 07/06/17 08:22 Dose: 1 cap Lamotrigine (Lamictal) 200 mg PO BID [facility] Last Admin: 07/06/17 08:23 Dose: 200 mg Levetiracetam (Keppra) 2,000 mg PO BID [facility] Last Admin: 07/06/17 08:22 Dose: 2,000 mg Mupirocin (Bactroban Cream) 1 applic TOP BID [facility] Last Admin: 07/06/17 08:21 Dose: 1 applic Quetiapine Fumarate (Seroquel) 100 mg PO HS [facility] Last Admin: 07/05/17 23:01 Dose: 100 mg Tamsulosin HCl (Flomax) 0.4 mg PO DAILY [facility] Last Admin: 07/06/17 08:23 Dose: 0.4 mg - Labs Labs: 07/04/17 08:30 07/04/17 08:30 - Constitutional Appears: No Acute Distress - Head Exam Head Exam: ATRAUMATIC, NORMAL INSPECTION, NORMOCEPHALIC - Eye Exam Eye Exam: Normal appearance Pupil Exam: PERRL - ENT Exam ENT Exam: Mucous Membranes Moist - Neck Exam Neck Exam: Full ROM - Respiratory Exam Respiratory Exam: Clear to Ausculation Bilateral - Cardiovascular Exam Cardiovascular Exam: REGULAR RHYTHM, +S1, +S2 - GI/Abdominal Exam GI & Abdominal Exam: Soft, Normal Bowel Sounds - Extremities Exam Additional comments: excoriations in legs improving well - Neurological Exam Neurological Exam: Alert, Altered, Awake Additional comments: paraplegia - Psychiatric Exam Psychiatric exam: Normal Affect - Skin Skin Exam: Normal Color Assessment and Plan (1) DVT prophylaxis Status: Acute (2) Seizure Status: Acute (3) UTI (urinary tract infection) Status: Acute (4) Debility Status: Chronic (5) Depression Status: Chronic (6) Multiple sclerosis Status: Chronic (7) Excoriation Status: Acute - Assessment and Plan (Free Text) Plan: Continue present rx
--- NOTE | 2017-07-06 12:25 | CP.PCM.PN ---
Subjective - Date & Time of Evaluation Date of Evaluation: 07/06/17 Time of Evaluation: 06:00 - Subjective Subjective: improving Objective - Vital Signs/Intake and Output Vital Signs (last 24 hours): Temp Pulse Resp BP Pulse Ox 97.9 F 89 20 114/72 98 07/06/17 08:11 07/06/17 08:11 07/06/17 08:11 07/06/17 08:11 07/06/17 08:11 - Medications Medications: Current Medications Acetaminophen (Tylenol 325mg Tab) 650 mg PO Q6 PRN PRN Reason: Fever >100.4 F Baclofen (Lioresal) 20 mg PO TID [facility] Last Admin: 07/06/17 12:04 Dose: 20 mg Docusate Sodium (Colace) 100 mg PO BID [facility] Last Admin: 07/06/17 08:22 Dose: 100 mg Enoxaparin Sodium (Lovenox) 40 mg SC DAILY [facility] PRN Reason: Protocol Last Admin: 07/06/17 08:22 Dose: 40 mg Fentanyl (Duragesic) 1 patch TD Q72@2100 [facility] PRN Reason: Protocol Last Admin: 07/03/17 22:01 Dose: 1 patch Home Med (Dimethyl Fumarate [Tecfidera]) 240 mg PO BID [facility] Last Admin: 07/06/17 08:23 Dose: 240 mg Fluconazole (Diflucan Iv 200 Mg/100 Ml Ns) 100 mls @ 100 mls/hr IVPB DAILY [facility] Last Admin: 07/06/17 08:23 Dose: 100 mls/hr Piperacillin Sod/Tazobactam (Sod 3.375 gm/ Sodium Chloride) 100 mls @ 100 mls/ hr IVPB Q6 [facility] Last Admin: 07/06/17 10:03 Dose: 100 mls/hr Lactic Acid (Lac-Hydrin 12% Lotion (225 G)) 1 applic TOP TID [facility] Last Admin: 07/06/17 12:04 Dose: 1 applic Lactobacillus Acidophilus (Bacid Acidophilus) 1 cap PO BID [facility] Last Admin: 07/06/17 08:22 Dose: 1 cap Lamotrigine (Lamictal) 200 mg PO BID [facility] Last Admin: 07/06/17 08:23 Dose: 200 mg Levetiracetam (Keppra) 2,000 mg PO BID [facility] Last Admin: 07/06/17 08:22 Dose: 2,000 mg Mupirocin (Bactroban Cream) 1 applic TOP BID [facility] Last Admin: 07/06/17 08:21 Dose: 1 applic Quetiapine Fumarate (Seroquel) 100 mg PO HS [facility] Last Admin: 07/05/17 23:01 Dose: 100 mg Tamsulosin HCl (Flomax) 0.4 mg PO DAILY [facility] Last Admin: 07/06/17 08:23 Dose: 0.4 mg - Labs Labs: 07/04/17 08:30 07/04/17 08:30 - Constitutional Appears: Non-toxic, Chronically Ill - Head Exam Head Exam: NORMOCEPHALIC - Eye Exam Eye Exam: PERRL - ENT Exam ENT Exam: Mucous Membranes Dry - Neck Exam Neck Exam: absent: Lymphadenopathy - Respiratory Exam Respiratory Exam: Decreased Breath Sounds - Cardiovascular Exam Cardiovascular Exam: REGULAR RHYTHM - GI/Abdominal Exam GI & Abdominal Exam: Distended, Soft - Rectal Exam Rectal Exam: Deferred - Exam Exam: NORMAL INSPECTION - Extremities Exam Extremities Exam: absent: Pedal Edema - Back Exam Back Exam: absent: CVA tenderness (L), CVA tenderness (R) - Neurological Exam Neurological Exam: Alert, Awake, Oriented x3 - Psychiatric Exam Psychiatric exam: Depressed - Skin Skin Exam: Dry, Intact Assessment and Plan (1) Abdominal pain Status: Acute (2) ESBL (extended spectrum beta-lactamase) producing bacteria infection Status: Acute
[2017-07-06] MEDS: Oxycodone/Acetaminophen 5/325 mg Tab PO PRN (13:56)
[2017-07-07] MEDS: Piperacillin/Tazobact 3.375 GM in Sodium Chloride 0.9% 100 ML IVPB SCH ×4 (04:58→20:59)
[2017-07-07] MEDS: Fluconazole IV 200mg/100 ml NS 100 ML IVPB SCH (09:44)
[2017-07-07] MEDS: Mupirocin 2% Cream TOP SCH ×2 (09:47→16:36)
[2017-07-07] MEDS: Lactobacillus Acidophilus 500 MU Cap PO SCH ×2 (09:48→16:36)
[2017-07-07] MEDS: Enoxaparin 40 mg Syringe SC SCH (09:48)
[2017-07-07] MEDS: DIMETHYL FUMARATE 240 MG PO SCH ×2 (09:48→16:36)
[2017-07-07] MEDS: Sodium Chloride 0.9% 1,000 ML IV SCH ×5 (09:50→13:55)
--- NOTE | 2017-07-07 11:01 | PCM.RRT ---
<Dereck Squires - Last Filed: 07/07/17 10:59> RN WELLNESS Nurse Assessment - Situation RN WELLNESS Responder Arrival Time: 08:31 Location: TCU Room Number: 711 RN WELLNESS Reason for Call: Hypotension RN WELLNESS Called By: RN - IV IV Inserted during RN WELLNESS?: No - Ventilator Settings Ventilator Respiratory Rate Settin Ventilator Tidal Volume Settin I.Reason for RN WELLNESS - A) Acute Change in Patient: (Select all that apply): Acute change in SBP below (Hypotension, BP 87/58 mmHg.) Subjective: RN WELLNESS was called on a 51 y/o M by RN at 8:32 am today due to hypotension. Pt has a PMHx of Dementia, Depression, Deep Vein Thrombosis, Kidney Stones, Multiple Sclerosis with severe neuro deficit paraplegia bed ridding since 2008, Peripheral Edema , Pneumonia, Pulmonary Embolism, Chronic Kidney Disease, Seizures, recurrent UTI and sepsis. RN WELLNESS arrived at 8:32 am. Pt was found alert and responsive, resting on bed in suspine position. Pt has been having intermittent fever and currently being treated for UTI. VS: BP 87/58, HR 127, Temp 97.7 degF, RR 20. PE: -Gen: Pt awake and alert, resting comfortably on bed. -HEENT: norocephalic, atraumatic. -CV: S1 and S2 present, regular rythm. -Lungs: normal breathing pattern, CTAB. -Abdomen: soft and non-tender. RN WELLNESS interventions: - IV fluids: NSS 0.9% 1 bolus. - Acetaminophen ordered - EKG. Repeated vital signs: BP 105/72, HR 118, RR 20. Pt stable, alert and responsive. A/P: 51 y/o M with a significant PMHx, presented hypotension most likely due to decompensation from persistent fever - EKG showed NO ischemia. No remarkable changes from previous EKG appreciated. - Continue current medical management. - Monitor vitals sign and observation. RN WELLNESS ended at 8:44 am - RN WELLNESS Sole Dyer: Dr Griffith. - RN WELLNESS residents: Dr Guerrero PGY-2, Dr Horowitz PGY-2, Dr Squires PGY-1. <Monica Griffith - Last Filed: 07/07/17 16:09> Attending/Attestation - Attestation I have personally seen and examined this patient.: Yes I have fully participated in the care of the patient.: Yes I have reviewed all pertinent clinical information, including history, physical exam and plan: Yes Notes (Text): 07/07/17 16:08 seen examined discussed with residents. agree with findings and plan as above.
[2017-07-08] MEDS: Piperacillin/Tazobact 3.375 GM in Sodium Chloride 0.9% 100 ML IVPB SCH ×4 (04:30→21:09)
[2017-07-08 09:32] VITALS: RESP 20
[2017-07-08] MEDS: Mupirocin 2% Cream TOP SCH ×2 (10:34→16:28)
[2017-07-08] MEDS: DIMETHYL FUMARATE 240 MG PO SCH ×2 (10:35→16:29)
[2017-07-08] MEDS: Enoxaparin 40 mg Syringe SC SCH (10:37)
[2017-07-08] MEDS: Lactobacillus Acidophilus 500 MU Cap PO SCH ×2 (11:02→16:28)
[2017-07-08] MEDS: Fluconazole IV 200mg/100 ml NS 100 ML IVPB SCH (11:02)
[2017-07-08] MEDS: Oxycodone/Acetaminophen 5/325 mg Tab PO PRN (12:55)
[2017-07-09] MEDS: Piperacillin/Tazobact 3.375 GM in Sodium Chloride 0.9% 100 ML IVPB SCH ×4 (04:10→21:32)
[2017-07-09] MEDS: Mupirocin 2% Cream TOP SCH ×2 (08:31→16:30)
[2017-07-09] MEDS: Fluconazole IV 200mg/100 ml NS 100 ML IVPB SCH ×2 (08:31→16:29)
[2017-07-09] MEDS: Lactobacillus Acidophilus 500 MU Cap PO SCH ×2 (08:31→16:31)
[2017-07-09] MEDS: Enoxaparin 40 mg Syringe SC SCH (08:32)
[2017-07-09] MEDS: DIMETHYL FUMARATE 240 MG PO SCH ×2 (08:32→16:31)
[2017-07-10] MEDS: Piperacillin/Tazobact 3.375 GM in Sodium Chloride 0.9% 100 ML IVPB SCH ×4 (04:23→21:19)
[2017-07-10] MEDS: Lactobacillus Acidophilus 500 MU Cap PO SCH ×2 (09:26→16:40)
[2017-07-10] MEDS: DIMETHYL FUMARATE 240 MG PO SCH ×2 (09:26→16:38)
[2017-07-10] MEDS: Enoxaparin 40 mg Syringe SC SCH (09:27)
[2017-07-10] MEDS: Mupirocin 2% Cream TOP SCH ×2 (09:34→16:49)
[2017-07-10] MEDS: Fluconazole IV 200mg/100 ml NS 100 ML IVPB SCH (17:50)
--- NOTE | 2017-07-10 18:01 | CP.PCM.PN ---
Subjective - Date & Time of Evaluation Date of Evaluation: 07/10/17 Time of Evaluation: 18:00 - Subjective Subjective: Patient seen and examined bedside. Hemodynamically stable, afebrile, bedbound. No acute issues overnight Urine Cx positive for yeast and Entereococcus faecalis Objective - Vital Signs/Intake and Output Vital Signs (last 24 hours): Temp Pulse Resp BP Pulse Ox 98.1 F 97 H 20 104/57 L 95 07/10/17 16:39 07/10/17 16:39 07/10/17 16:39 07/10/17 16:39 07/10/17 16:39 - Medications Medications: Current Medications Acetaminophen (Tylenol 325mg Tab) 650 mg PO Q6 PRN PRN Reason: Fever >100.4 F Last Admin: 07/06/17 14:02 Dose: 650 mg Baclofen (Lioresal) 20 mg PO TID [facility] Last Admin: 07/10/17 16:37 Dose: 20 mg Docusate Sodium (Colace) 100 mg PO BID [facility] Last Admin: 07/10/17 16:39 Dose: 100 mg Enoxaparin Sodium (Lovenox) 40 mg SC DAILY [facility] PRN Reason: Protocol Last Admin: 07/10/17 09:27 Dose: 40 mg Fentanyl (Duragesic) 1 patch TD Q3D [facility] PRN Reason: Protocol Last Admin: 07/09/17 22:31 Dose: 1 patch Home Med (Dimethyl Fumarate [Tecfidera]) 240 mg PO BID [facility] Last Admin: 07/10/17 16:38 Dose: Not Given Piperacillin Sod/Tazobactam (Sod 3.375 gm/ Sodium Chloride) 100 mls @ 100 mls/ hr IVPB Q6 [facility] PRN Reason: Protocol Stop: 07/13/17 23:59 Last Admin: 07/10/17 16:37 Dose: 100 mls/hr Fluconazole (Diflucan Iv 200 Mg/100 Ml Ns) 100 mls @ 100 mls/hr IVPB DAILY@ 1700 [facility] Stop: 07/13/17 17:59 Last Admin: 07/10/17 17:50 Dose: 100 mls/hr Lactic Acid (Lac-Hydrin 12% Lotion (225 G)) 1 applic TOP TID [facility] Last Admin: 07/10/17 16:38 Dose: 1 applic Lactobacillus Acidophilus (Bacid Acidophilus) 1 cap PO BID [facility] Last Admin: 07/10/17 16:40 Dose: 1 cap Lamotrigine (Lamictal) 200 mg PO BID [facility] Last Admin: 07/10/17 16:38 Dose: 200 mg Levetiracetam (Keppra) 2,000 mg PO BID [facility] Last Admin: 07/10/17 16:38 Dose: 2,000 mg Mupirocin (Bactroban Cream) 1 applic TOP BID [facility] Last Admin: 07/10/17 16:49 Dose: 1 applic Quetiapine Fumarate (Seroquel) 100 mg PO HS [facility] Last Admin: 07/09/17 21:30 Dose: 100 mg Tamsulosin HCl (Flomax) 0.4 mg PO DAILY [facility] Last Admin: 07/10/17 09:27 Dose: 0.4 mg - Labs Labs: 07/04/17 08:30 07/04/17 08:30 - Constitutional Appears: Non-toxic, No Acute Distress - Head Exam Head Exam: NORMOCEPHALIC - Eye Exam Eye Exam: EOMI, PERRL Pupil Exam: NORMAL ACCOMODATION - ENT Exam ENT Exam: Mucous Membranes Moist, Normal Exam - Neck Exam Neck Exam: Normal Inspection - Respiratory Exam Respiratory Exam: Clear to Ausculation Bilateral, NORMAL BREATHING PATTERN. absent: Rales, Rhonchi, Wheezes - Cardiovascular Exam Cardiovascular Exam: REGULAR RHYTHM, +S1, +S2. absent: JVD - GI/Abdominal Exam GI & Abdominal Exam: Soft, Normal Bowel Sounds. absent: Distended, Guarding, Rebound - Rectal Exam Rectal Exam: Deferred - Extremities Exam Extremities Exam: Normal Capillary Refill. absent: Pedal Edema - Neurological Exam Neurological Exam: Alert, Awake, Oriented x3 - Skin Skin Exam: Dry, Normal Color, Warm Assessment and Plan - Assessment and Plan (Free Text) Assessment: 51 yo male with past medical hx Dementia, Depression, Deep Vein Thrombosis, Kidney Stones, Multiple Sclerosis with severe neuro deficit paraplegia bed ridding since 2008, Peripheral Edema , Pneumonia, Pulmonary Embolism , Chronic Kidney Disease, Seizures, recurrent UTI and sepsis presented in ER with seizure. A UA reveled UTI. Patient has hx of status epilepticus and sepsis related to the UTI. Patient responded well to present rx.Discharged to TCU for continuation of IV antibiotics ( covering for Dr. Hirsch ) 1. UTI secondary to yeast and Enterococcus faecalis ID on consult Continue Zosyn and Diflucan IV 2. Multiple sclerosis on Baclofen, pain management Tecfidera 3. Seizure disorder continue lamictal 4.BPH on flomax 5. DVt prophylaxis on lovenox
[2017-07-11] MEDS: Piperacillin/Tazobact 3.375 GM in Sodium Chloride 0.9% 100 ML IVPB SCH ×4 (03:57→22:37)
[2017-07-11] MEDS: DIMETHYL FUMARATE 240 MG PO SCH ×2 (09:45→16:27)
[2017-07-11] MEDS: Enoxaparin 40 mg Syringe SC SCH (09:46)
[2017-07-11] MEDS: Lactobacillus Acidophilus 500 MU Cap PO SCH ×2 (09:47→16:27)
[2017-07-11] MEDS: Mupirocin 2% Cream TOP SCH ×2 (09:50→16:30)
--- NOTE | 2017-07-11 12:55 | CP.PCM.PN ---
Subjective - Date & Time of Evaluation Date of Evaluation: 07/11/17 Time of Evaluation: 09:00 - Subjective Subjective: appears comfortable nad Objective - Vital Signs/Intake and Output Vital Signs (last 24 hours): Temp Pulse Resp BP Pulse Ox 97.5 F L 79 20 112/69 94 L 07/11/17 08:34 07/11/17 08:34 07/11/17 08:34 07/11/17 08:34 07/11/17 08:34 - Medications Medications: Current Medications Acetaminophen (Tylenol 325mg Tab) 650 mg PO Q6 PRN PRN Reason: Fever >100.4 F Last Admin: 07/06/17 14:02 Dose: 650 mg Baclofen (Lioresal) 20 mg PO TID [facility] Last Admin: 07/11/17 12:52 Dose: 20 mg Docusate Sodium (Colace) 100 mg PO BID [facility] Last Admin: 07/11/17 09:44 Dose: 100 mg Enoxaparin Sodium (Lovenox) 40 mg SC DAILY [facility] PRN Reason: Protocol Last Admin: 07/11/17 09:46 Dose: 40 mg Fentanyl (Duragesic) 1 patch TD Q3D [facility] PRN Reason: Protocol Last Admin: 07/09/17 22:31 Dose: 1 patch Home Med (Dimethyl Fumarate [Tecfidera]) 240 mg PO BID [facility] Last Admin: 07/11/17 09:45 Dose: Not Given Piperacillin Sod/Tazobactam (Sod 3.375 gm/ Sodium Chloride) 100 mls @ 100 mls/ hr IVPB Q6 [facility] PRN Reason: Protocol Stop: 07/13/17 23:59 Last Admin: 07/11/17 11:00 Dose: 100 mls/hr Fluconazole (Diflucan Iv 200 Mg/100 Ml Ns) 100 mls @ 100 mls/hr IVPB DAILY@ 1700 [facility] Stop: 07/13/17 17:59 Last Admin: 07/10/17 17:50 Dose: 100 mls/hr Lactic Acid (Lac-Hydrin 12% Lotion (225 G)) 1 applic TOP TID [facility] Last Admin: 07/11/17 12:52 Dose: 1 applic Lactobacillus Acidophilus (Bacid Acidophilus) 1 cap PO BID [facility] Last Admin: 07/11/17 09:47 Dose: 1 cap Lamotrigine (Lamictal) 200 mg PO BID [facility] Last Admin: 07/11/17 09:45 Dose: 200 mg Levetiracetam (Keppra) 2,000 mg PO BID [facility] Last Admin: 07/11/17 09:44 Dose: 2,000 mg Mupirocin (Bactroban Cream) 1 applic TOP BID [facility] Last Admin: 07/11/17 09:50 Dose: 1 applic Quetiapine Fumarate (Seroquel) 100 mg PO HS [facility] Last Admin: 07/10/17 21:19 Dose: 100 mg Tamsulosin HCl (Flomax) 0.4 mg PO DAILY [facility] Last Admin: 07/11/17 09:45 Dose: 0.4 mg - Labs Labs: 07/04/17 08:30 07/04/17 08:30 - Constitutional Appears: Non-toxic, Chronically Ill - Head Exam Head Exam: NORMOCEPHALIC - Eye Exam Eye Exam: PERRL - ENT Exam ENT Exam: Mucous Membranes Dry - Neck Exam Neck Exam: absent: Lymphadenopathy - Respiratory Exam Respiratory Exam: Decreased Breath Sounds - Cardiovascular Exam Cardiovascular Exam: REGULAR RHYTHM - GI/Abdominal Exam GI & Abdominal Exam: Distended Assessment and Plan (1) UTI (urinary tract infection) Status: Acute
[2017-07-11] MEDS: Fluconazole IV 200mg/100 ml NS 100 ML IVPB SCH (17:38)
[2017-07-12] MEDS: Piperacillin/Tazobact 3.375 GM in Sodium Chloride 0.9% 100 ML IVPB SCH ×4 (04:40→21:16)
[2017-07-12] MEDS: Mupirocin 2% Cream TOP SCH ×2 (09:16→16:51)
[2017-07-12] MEDS: DIMETHYL FUMARATE 240 MG PO SCH ×2 (09:18→16:52)
[2017-07-12] MEDS: Enoxaparin 40 mg Syringe SC SCH (09:19)
[2017-07-12] MEDS: Lactobacillus Acidophilus 500 MU Cap PO SCH ×2 (09:27→16:50)
--- NOTE | 2017-07-12 13:44 | CP.PCM.PN ---
Subjective - Date & Time of Evaluation Date of Evaluation: 07/12/17 Time of Evaluation: 12:00 - Subjective Subjective: Patient was seen and examined at bedside. He has no complaints today. Hemodynamically stable and afebrile. No acute issues overnight. Objective - Vital Signs/Intake and Output Vital Signs (last 24 hours): Temp Pulse Resp BP Pulse Ox 97.5 F L 73 20 124/79 95 07/12/17 08:39 07/12/17 08:39 07/12/17 08:39 07/12/17 08:39 07/12/17 08:39 - Medications Medications: Current Medications Acetaminophen (Tylenol 325mg Tab) 650 mg PO Q6 PRN PRN Reason: Fever >100.4 F Last Admin: 07/06/17 14:02 Dose: 650 mg Baclofen (Lioresal) 20 mg PO TID [facility] Last Admin: 07/12/17 12:20 Dose: 20 mg Docusate Sodium (Colace) 100 mg PO BID [facility] Last Admin: 07/12/17 09:18 Dose: 100 mg Enoxaparin Sodium (Lovenox) 40 mg SC DAILY [facility] PRN Reason: Protocol Last Admin: 07/12/17 09:19 Dose: 40 mg Fentanyl (Duragesic) 1 patch TD Q3D [facility] PRN Reason: Protocol Last Admin: 07/09/17 22:31 Dose: 1 patch Home Med (Dimethyl Fumarate [Tecfidera]) 240 mg PO BID [facility] Last Admin: 07/12/17 09:18 Dose: 240 mg Piperacillin Sod/Tazobactam (Sod 3.375 gm/ Sodium Chloride) 100 mls @ 100 mls/ hr IVPB Q6 [facility] PRN Reason: Protocol Stop: 07/13/17 23:59 Last Admin: 07/12/17 10:17 Dose: 100 mls/hr Fluconazole (Diflucan Iv 200 Mg/100 Ml Ns) 100 mls @ 100 mls/hr IVPB DAILY@ 1700 [facility] Stop: 07/13/17 17:59 Last Admin: 07/11/17 17:38 Dose: 100 mls/hr Lactic Acid (Lac-Hydrin 12% Lotion (225 G)) 1 applic TOP TID [facility] Last Admin: 07/12/17 12:21 Dose: 1 applic Lactobacillus Acidophilus (Bacid Acidophilus) 1 cap PO BID [facility] Last Admin: 07/12/17 09:27 Dose: 1 cap Lamotrigine (Lamictal) 200 mg PO BID [facility] Last Admin: 07/12/17 09:17 Dose: 200 mg Levetiracetam (Keppra) 2,000 mg PO BID [facility] Last Admin: 07/12/17 09:18 Dose: 2,000 mg Mupirocin (Bactroban Cream) 1 applic TOP BID [facility] Last Admin: 07/12/17 09:16 Dose: 1 applic Quetiapine Fumarate (Seroquel) 100 mg PO HS [facility] Last Admin: 07/11/17 22:38 Dose: 100 mg Tamsulosin HCl (Flomax) 0.4 mg PO DAILY [facility] Last Admin: 07/12/17 09:18 Dose: 0.4 mg - Labs Labs: 07/04/17 08:30 07/04/17 08:30 - Additional Findings Additional findings: Physical exam: Constitutional- cooperative, awake, alert. Head- NCAT, PERRL Eye- PERRL, normal accommodation ENT- normal exam, MMM. Neck- normal inspection, supple, no JVD Respiratory- CTAB, no wheezes rales rhonchi Cardiovascular- RRR, +S1, +S2 no MRG GI/Abdominal- normal bowel sounds, soft, no mass, no hsm Skin- warm, dry Extremities Exam- normal capillary refill, normal inspection Neurological Exam- alert, stable gait Psych- normal mood, normal affect Assessment and Plan - Assessment and Plan (Free Text) Plan: Assessment: 51 yo male with past medical hx Dementia, Depression, Deep Vein Thrombosis, Kidney Stones, Multiple Sclerosis with severe neuro deficit, paraplegia, bed ridden since 2008, Peripheral Edema , Pneumonia, Pulmonary Embolism , Chronic Kidney Disease, Seizures, recurrent UTI and sepsis presented in ER with seizure. A UA reveled UTI. Patient has hx of status epilepticus and sepsis related to the UTI. Patient responded well to present rx.Discharged to TCU for continuation of IV antibiotics ( covering for Dr. Hirsch ) 1. UTI secondary to yeast and Enterococcus faecalis ID on consult Continue Zosyn and Diflucan IV 2. Multiple sclerosis on Baclofen, pain management Tecfidera 3. Seizure disorder continue lamictal 4.BPH on flomax 5. DVT prophylaxis on lovenox
[2017-07-12] MEDS: Fluconazole IV 200mg/100 ml NS 100 ML IVPB SCH (16:50)
[2017-07-13] MEDS: Piperacillin/Tazobact 3.375 GM in Sodium Chloride 0.9% 100 ML IVPB SCH ×3 (04:26→16:33)
--- NOTE | 2017-07-13 06:28 | CP.PCM.PCO ---
Physician Communication Note - Physician Communication Note Physician Communication Note: Called by nurse to evaluate Skin rash.
[2017-07-13] MEDS: Mupirocin 2% Cream TOP SCH ×2 (09:37→16:32)
[2017-07-13] MEDS: DIMETHYL FUMARATE 240 MG PO SCH ×2 (09:38→16:33)
[2017-07-13] MEDS: Enoxaparin 40 mg Syringe SC SCH (09:40)
[2017-07-13] MEDS: Lactobacillus Acidophilus 500 MU Cap PO SCH ×2 (09:44→16:32)
[2017-07-13] MEDS ORDERED: Oxycodone/Acetaminophen 5/325 mg Tab PO PRN (14:03)
[2017-07-14] MEDS: Lactobacillus Acidophilus 500 MU Cap PO SCH (09:43)
[2017-07-14] MEDS: DIMETHYL FUMARATE 240 MG PO SCH (09:44)
[2017-07-14] MEDS: Enoxaparin 40 mg Syringe SC SCH (09:47)
[2017-07-14] MEDS: Mupirocin 2% Cream TOP SCH (09:49)
[2017-07-14 10:05] VITALS: BP 101/55; PULSE 88; TEMP 97.3; O2SAT 96
--- NOTE | 2017-07-14 10:22 | CP.PCM.DIS ---
Provider - Provider Date of Admission: 07/03/17 20:07 Attending physician: Leo Morris MD Time Spent in preparation of Discharge (in minutes): 30 Diagnosis - Discharge Diagnosis (1) Delirium due to general medical condition Status: Acute (2) ESBL (extended spectrum beta-lactamase) producing bacteria infection Status: Acute Hospital Course - Lab Results Lab Results: Micro Results 07/07/17 09:20 Blood Blood Culture - Final NO GROWTH AFTER 5 DAYS 07/07/17 09:20 Blood Gram Stain - Final TEST NOT PERFORMED 07/07/17 11:38 Urine,Catheterized Urine Culture - Final No Growth (<1,000 CFU/ML) Most Recent Lab Values WBC 9.0 K/uL (4.8-10.8) 07/04/17 08:30 RBC 4.39 Mil/uL (4.40-5.90) L 07/04/17 08:30 Hgb 12.6 g/dL (12.0-18.0) 07/04/17 08:30 Hct 38.4 % (35.0-51.0) 07/04/17 08:30 MCV 87.4 fl (80.0-94.0) 07/04/17 08:30 MCH 28.7 pg (27.0-31.0) 07/04/17 08:30 MCHC 32.8 g/dL (33.0-37.0) L 07/04/17 08:30 RDW 14.6 % (11.5-14.5) H 07/04/17 08:30 Plt Count 264 K/uL (130-400) 07/04/17 08:30 MPV 7.6 fl (7.2-11.7) 07/04/17 08:30 Neut % (Auto) 43.2 % (50.0-75.0) L 07/04/17 08:30 Lymph % (Auto) 40.8 % (20.0-40.0) H 07/04/17 08:30 [place] % (Auto) 7.6 % (0.0-10.0) 07/04/17 08:30 Eos % (Auto) 7.9 % (0.0-4.0) H 07/04/17 08:30 Baso % (Auto) 0.5 % (0.0-2.0) 07/04/17 08:30 Neut # 3.9 K/uL (1.8-7.0) 07/04/17 08:30 Lymph # 3.7 K/uL (1.0-4.3) 07/04/17 08:30 [place] # 0.7 K/uL (0.0-0.8) 07/04/17 08:30 Eos # 0.7 K/uL (0.0-0.7) 07/04/17 08:30 Baso # 0.0 K/uL (0.0-0.2) 07/04/17 08:30 Sodium 141 mmol/l (132-148) 07/04/17 08:30 Potassium 4.2 MMOL/L (3.6-5.0) 07/04/17 08:30 Chloride 104 mmol/L (98-107) 07/04/17 08:30 Carbon Dioxide 29 mmol/L (22-30) 07/04/17 08:30 Anion Gap 12 (10-20) 07/04/17 08:30 BUN 9 mg/dl (9-20) 07/04/17 08:30 Creatinine 0.8 mg/dl (0.8-1.5) 07/04/17 08:30 Est GFR ( Amer) > 60 07/04/17 08:30 Est GFR (Non-Af Amer) > 60 07/04/17 08:30 Random Glucose 93 mg/dL (75-110) 07/04/17 08:30 Calcium 9.1 mg/dL (8.4-10.2) 07/04/17 08:30 - Hospital Course Hospital Course: 51 yo male with past medical hx Dementia, Depression, Deep Vein Thrombosis, Kidney Stones, Multiple Sclerosis with severe neuro deficit, paraplegia, bed ridden since 2008, Peripheral Edema , Pneumonia, Pulmonary Embolism , Chronic Kidney Disease, Seizures, recurrent UTI and sepsis presented in ER with seizure. A UA reveled UTI. Patient has hx of status epilepticus and sepsis related to the UTI. Patient responded well to present rx.Discharged to TCU for continuation of IV antibiotics. Pt did well, tolerated abx well. PICC d/c today , stable for discharge home. ( covering for Dr. Hirsch ) 1. UTI secondary to yeast and Enterococcus faecalis ID on consult Continue Zosyn and Diflucan IV 2. Multiple sclerosis on Baclofen, pain management Tecfidera 3. Seizure disorder continue lamictal 4.BPH on flomax 5. DVT prophylaxis on lovenox Discharge Exam - Head Exam Head Exam: ATRAUMATIC, NORMOCEPHALIC - Eye Exam Eye Exam: EOMI, PERRL Pupil Exam: NORMAL ACCOMODATION - ENT Exam ENT Exam: Mucous Membranes Moist, Normal Oropharynx - Respiratory Exam Respiratory Exam: Clear to PA & Lateral, NORMAL BREATHING PATTERN - Cardiovascular Exam Cardiovascular Exam: REGULAR RHYTHM, +S1, +S2 - GI/Abdominal Exam GI & Abdominal Exam: Normal Bowel Sounds, Soft. absent: Organomegaly, Tenderness - Extremities Exam Extremities exam: normal capillary refill, pedal pulses present - Back Exam Back exam: absent: CVA tenderness (L), CVA tenderness (R) - Neurological Exam Neurological exam: Alert, Reflexes Normal - Psychiatric Exam Psychiatric exam: Normal Affect, Normal Mood - Skin Skin Exam: Dry, Warm Discharge Plan - Discharge Medications Prescriptions: Baclofen [Lioresal] 20 mg PO TID #90 tab Dimethyl Fumarate [Tecfidera] 240 mg PO BID #60 capsule.dr Docusate [Colace] 100 mg PO BID #60 cap fentaNYL 50 mcg/hr [Duragesic Patch 50 mcg/hr] 1 patch TD Q3D #1 patch Lactobacillus Acidophilus [Bacid Acidophilus] 1 cap PO BID #60 cap lamoTRIgine [Lamictal] 200 mg PO BID #60 tab levETIRAcetam [Keppra] 2,000 mg PO BID #60 tab predniSONE [predniSONE Tab] 30 mg PO DAILY #2 tab predniSONE [predniSONE Tab] 20 mg PO DAILY #2 tab predniSONE [predniSONE Tab] 40 mg PO DAILY #2 tab QUEtiapine [Seroquel] 100 mg PO HS #30 tab Tamsulosin [Flomax] 0.4 mg PO DAILY #30 cap - Follow Up Plan Condition: GOOD Disposition: HOME/ ROUTINE Additional Instructions: FOLLOW UP PCP IN ONE WEEK
== END 2017-07-14 13:00 | disposition home or self-care (01) | DRG 101 ==
LOC: H.TCU 20:07
PROVIDERS: ADMIT Internal Medicine; ATTEND Internal Medicine
DX: G40.901 Epilepsy, unspecified, not intractable, with status epilepticus (principal); F05 Delirium due to known physiological condition; G82.20 Paraplegia, unspecified; B37.49 Other urogenital candidiasis; N39.0 Urinary tract infection, site not specified; G35 Multiple sclerosis; B95.2 Enterococcus as the cause of diseases classified elsewhere; F32.9 Major depressive disorder, single episode, unspecified; F03.90 Unspecified dementia, unspecified severity, without behavioral disturbance, psychotic disturbance, mood disturbance, and anxiety; R53.81 Other malaise; Z74.01 Bed confinement status; Z86.718 Personal history of other venous thrombosis and embolism; Z86.711 Personal history of pulmonary embolism; N40.0 Benign prostatic hyperplasia without lower urinary tract symptoms; L27.0 Generalized skin eruption due to drugs and medicaments taken internally; T36.0X5A Adverse effect of penicillins, initial encounter

== ENCOUNTER 2017-08-14 15:33 | Inpatient (IN) | payer OTHER ==
[2017-08-14 19:10] VITALS: BMI 29.2
[2017-08-14 20:09] VITALS: RESP 20
[2017-08-14] MEDS: Piperacillin/Tazobact 3.375 GM in Sodium Chloride 0.9% 100 ML IVPB SCH (23:44)
[2017-08-15] MEDS: Piperacillin/Tazobact 3.375 GM in Sodium Chloride 0.9% 100 ML IVPB SCH ×3 (05:29→17:29)
[2017-08-15] MEDS: Lactobacillus Acidophilus 500 MU Cap PO SCH ×2 (09:16→17:26)
[2017-08-15] MEDS: Fluconazole IV 200mg/100 ml NS 100 ML IVPB SCH (09:16)
--- NOTE | 2017-08-15 13:44 | CP.PCM.HP ---
History of Present Illness - History of Present Illness History of Present Illness: Patient is 51 y/o male with Hx of MS, Seizure and recurrence of UTI and sepsis. He presented in ER via EMS with mental status changes, severe lactic acidosis, leukocytosis, delirum, hypotension. Well responded to rx will follow in TCU. the condition and the prognosis of the patient discussed with the . She is aware that it is not possible to control the recurrence of the infections 100% because his severe base line condition and that those condition can be fatal to the patient. Present on Admission - Present on Admission Any Indicators Present on Admission: No Review of Systems - Constitutional Constitutional: As Per HPI - EENT Eyes: As Per HPI - Cardiovascular Cardiovascular: As Per HPI - Respiratory Respiratory: As Per HPI - Gastrointestinal Gastrointestinal: As Per HPI - Musculoskeletal Musculoskeletal: As Per HPI - Neurological Neurological: As Per HPI Past Patient History - Infectious Disease Hx of Infectious Diseases: None - Tetanus Immunizations Tetanus Immunization: Unknown - Past Medical History & Family History Past Medical History?: Yes - Past Social History Smoking Status: Never Smoked - CARDIAC Hx Hypercholesterolemia: Yes Hx Hypertension: Yes Hx Peripheral Edema: Yes (bl le swelling no longer) - PULMONARY Hx Chronic Obstructive Pulmonary Disease (COPD): Yes Hx Pneumonia: Yes Hx Pulmonary Embolism: Yes (h/o dvt) - NEUROLOGICAL Hx Dementia: Yes Hx Multiple Sclerosis: Yes Hx Seizures: Yes - HEENT Hx HEENT Problems: Yes (poor vision left eye) - RENAL Hx Chronic Kidney Disease: Yes Hx Kidney Stones: Yes - ENDOCRINE/METABOLIC Hx Endocrine Disorders: No - HEMATOLOGICAL/ONCOLOGICAL Hx Anemia: Yes - INTEGUMENTARY Hx Dermatological Problems: No - MUSCULOSKELETAL/RHEUMATOLOGICAL Hx Arthritis: Yes Hx Falls: No - GASTROINTESTINAL Hx Gastrointestinal Disorders: Yes (constipation) - GENITOURINARY/GYNECOLOGICAL Hx Genitourinary Disorders: Yes Hx Incontinence: Yes Hx Prostate Problems: Yes Hx Urinary Tract Infection: Yes - PSYCHIATRIC Hx Anxiety: Yes Hx Depression: Yes Hx Substance Use: No - SURGICAL HISTORY Hx Surgeries: Yes Other/Comment: cysto with removal of stent 05/19/16- kidney stones - ANESTHESIA Hx Anesthesia: Yes Hx Anesthesia Reactions: No Hx Malignant Hyperthermia: No Meds Allergies/Adverse Reactions: Allergies Allergy/AdvReac Type Severity Reaction Status Date / Time cefazolin Allergy RASH, Verified 08/09/17 12:08 ITCHINESS Physical Exam - Constitutional Appears: Confused, Chronically Ill - Head Exam Head Exam: ATRAUMATIC, NORMAL INSPECTION, NORMOCEPHALIC - Eye Exam Eye Exam: Normal appearance - Neck Exam Neck exam: Positive for: Full Rom - Respiratory Exam Respiratory Exam: Decreased Breath Sounds, Clear to Auscultation Bilateral - Cardiovascular Exam Cardiovascular Exam: REGULAR RHYTHM, +S1, +S2 - GI/Abdominal Exam GI & Abdominal Exam: Normal Bowel Sounds - Extremities Exam Extremities exam: Positive for: normal inspection - Neurological Exam Neurological exam: Altered - Psychiatric Exam Psychiatric exam: Normal Affect - Skin Skin Exam: Normal Color Results - Vital Signs Recent Vital Signs: Last Vital Signs Temp 97.8 F 08/15/17 08:28 Pulse 90 08/15/17 08:28 Resp 20 08/15/17 08:28 BP 113/72 08/15/17 08:28 Pulse Ox 98 08/15/17 08:28 Assessment & Plan (1) 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
[2017-08-15] MEDS: Oxycodone/Acetaminophen 5/325 mg Tab PO ONE ×2 (15:55→22:24)
[2017-08-15] MEDS ORDERED: Oxycodone/Acetaminophen 5/325 mg Tab ONE (22:24)
[2017-08-16] MEDS: Piperacillin/Tazobact 3.375 GM in Sodium Chloride 0.9% 100 ML IVPB SCH ×5 (02:25→23:27)
[2017-08-16] MEDS: Lactobacillus Acidophilus 500 MU Cap PO SCH ×2 (09:33→17:05)
[2017-08-16] MEDS: Fluconazole IV 200mg/100 ml NS 100 ML IVPB SCH (09:38)
--- NOTE | 2017-08-16 13:13 | CP.PCM.PN ---
Subjective - Date & Time of Evaluation Date of Evaluation: 08/16/17 Time of Evaluation: 13:13 - Subjective Subjective: Not in distress, comfortable. Objective - Vital Signs/Intake and Output Vital Signs (last 24 hours): Temp Pulse Resp BP Pulse Ox 97.9 F 85 20 140/72 99 08/16/17 07:52 08/16/17 07:52 08/16/17 07:52 08/16/17 07:52 08/16/17 07:52 - Medications Medications: Current Medications Acetaminophen (Tylenol 325mg Tab) 650 mg PO Q6 PRN PRN Reason: Fever >100.4 F Baclofen (Lioresal) 20 mg PO TID [facility] Last Admin: 08/16/17 12:55 Dose: 20 mg Famotidine (Pepcid) 20 mg PO BID [facility] Last Admin: 08/16/17 09:37 Dose: 20 mg Fentanyl (Duragesic) 1 patch TD Q72H [facility] PRN Reason: Protocol Last Admin: 08/15/17 12:21 Dose: 1 patch Heparin Sodium (Porcine) (Heparin) 5,000 units SC Q12 [facility] PRN Reason: Protocol Last Admin: 08/16/17 09:35 Dose: 5,000 units Home Med (Dimethyl Fumarate [Tecfidera]) 240 mg PO BID [facility] Last Admin: 08/16/17 09:33 Dose: 240 mg Fluconazole (Diflucan Iv 200 Mg/100 Ml Ns) 100 mls @ 100 mls/hr IVPB DAILY [facility] Last Admin: 08/16/17 09:38 Dose: 100 mls/hr Piperacillin Sod/Tazobactam (Sod 3.375 gm/ Sodium Chloride) 100 mls @ 100 mls/ hr IVPB 0600,1200,1800,0000 [facility] PRN Reason: Protocol Last Admin: 08/16/17 12:55 Dose: 100 mls/hr Lactobacillus Acidophilus (Bacid Acidophilus) 1 cap PO BID [facility] Last Admin: 08/16/17 09:33 Dose: 1 cap Lactulose (Enulose) 20 gm PO DAILY PRN PRN Reason: Constipation Last Admin: 08/15/17 17:27 Dose: 20 gm Lamotrigine (Lamictal) 50 mg PO BID [facility] Last Admin: 08/16/17 09:36 Dose: 50 mg Lamotrigine (Lamictal) 200 mg PO BID [facility] Last Admin: 08/16/17 09:34 Dose: 200 mg Levetiracetam (Keppra) 2,000 mg PO Q12H [facility] Last Admin: 08/16/17 09:34 Dose: 2,000 mg Quetiapine Fumarate (Seroquel) 100 mg PO HS [facility] Last Admin: 08/15/17 22:12 Dose: 100 mg Tamsulosin HCl (Flomax) 0.4 mg PO DAILY [facility] Last Admin: 08/16/17 09:34 Dose: 0.4 mg - Constitutional Appears: Confused, Chronically Ill - Head Exam Head Exam: ATRAUMATIC, NORMAL INSPECTION, NORMOCEPHALIC - Eye Exam Eye Exam: Normal appearance - ENT Exam ENT Exam: Mucous Membranes Moist - Neck Exam Neck Exam: Full ROM - Respiratory Exam Respiratory Exam: Clear to Ausculation Bilateral - Cardiovascular Exam Cardiovascular Exam: REGULAR RHYTHM, +S1, +S2 - GI/Abdominal Exam GI & Abdominal Exam: Normal Bowel Sounds - Neurological Exam Neurological Exam: Altered, Awake - Psychiatric Exam Psychiatric exam: Anxious - Skin Skin Exam: Normal Color Assessment and Plan (1) 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
[2017-08-17] MEDS: Piperacillin/Tazobact 3.375 GM in Sodium Chloride 0.9% 100 ML IVPB SCH ×4 (05:18→23:21)
[2017-08-17] MEDS: Lactobacillus Acidophilus 500 MU Cap PO SCH ×2 (08:56→17:04)
[2017-08-17] MEDS: Fluconazole IV 200mg/100 ml NS 100 ML IVPB SCH (08:57)
[2017-08-17] MEDS: Oxycodone/Acetaminophen 5/325 mg Tab PO PRN ×2 (09:14→17:10)
--- NOTE | 2017-08-17 10:01 | CP.PCM.PN ---
Subjective - Date & Time of Evaluation Date of Evaluation: 08/17/17 Time of Evaluation: 10:01 - Subjective Subjective: No new changes Objective - Vital Signs/Intake and Output Vital Signs (last 24 hours): Temp Pulse Resp BP Pulse Ox 98.2 F 98 H 20 107/72 93 L 08/17/17 08:13 08/17/17 08:13 08/17/17 08:13 08/17/17 08:13 08/17/17 08:13 - Medications Medications: Current Medications Acetaminophen (Tylenol 325mg Tab) 650 mg PO Q6 PRN PRN Reason: Fever >100.4 F Baclofen (Lioresal) 20 mg PO TID [facility] Last Admin: 08/17/17 09:00 Dose: 20 mg Famotidine (Pepcid) 20 mg PO BID [facility] Last Admin: 08/17/17 08:58 Dose: 20 mg Fentanyl (Duragesic) 1 patch TD Q72H [facility] PRN Reason: Protocol Last Admin: 08/15/17 12:21 Dose: 1 patch Heparin Sodium (Porcine) (Heparin) 5,000 units SC Q12 [facility] PRN Reason: Protocol Last Admin: 08/17/17 09:05 Dose: 5,000 units Home Med (Dimethyl Fumarate [Tecfidera]) 240 mg PO BID [facility] Last Admin: 08/17/17 08:57 Dose: 240 mg Fluconazole (Diflucan Iv 200 Mg/100 Ml Ns) 100 mls @ 100 mls/hr IVPB DAILY [facility] Last Admin: 08/17/17 08:57 Dose: 100 mls/hr Piperacillin Sod/Tazobactam (Sod 3.375 gm/ Sodium Chloride) 100 mls @ 100 mls/ hr IVPB 0600,1200,1800,0000 [facility] PRN Reason: Protocol Last Admin: 08/17/17 05:18 Dose: 100 mls/hr Lactobacillus Acidophilus (Bacid Acidophilus) 1 cap PO BID [facility] Last Admin: 08/17/17 08:56 Dose: 1 cap Lactulose (Enulose) 20 gm PO DAILY PRN PRN Reason: Constipation Last Admin: 08/15/17 17:27 Dose: 20 gm Lamotrigine (Lamictal) 50 mg PO BID [facility] Last Admin: 08/17/17 08:59 Dose: 50 mg Lamotrigine (Lamictal) 200 mg PO BID [facility] Last Admin: 08/17/17 08:57 Dose: 200 mg Levetiracetam (Keppra) 2,000 mg PO Q12H [facility] Last Admin: 08/17/17 08:58 Dose: 2,000 mg Oxycodone/Acetaminophen (Percocet 5/325 Mg Tab) 1 tab PO Q6 PRN PRN Reason: Pain, moderate (4-7) Stop: 08/19/17 13:27 Last Admin: 08/17/17 09:14 Dose: 1 tab Quetiapine Fumarate (Seroquel) 100 mg PO HS [facility] Last Admin: 08/16/17 21:08 Dose: 100 mg Tamsulosin HCl (Flomax) 0.4 mg PO DAILY [facility] Last Admin: 08/17/17 08:59 Dose: 0.4 mg - Constitutional Appears: Confused, Chronically Ill - Head Exam Head Exam: ATRAUMATIC, NORMAL INSPECTION, NORMOCEPHALIC - Neck Exam Neck Exam: Full ROM - Respiratory Exam Respiratory Exam: Clear to Ausculation Bilateral - Cardiovascular Exam Cardiovascular Exam: REGULAR RHYTHM, +S1, +S2 - GI/Abdominal Exam GI & Abdominal Exam: Normal Bowel Sounds - Neurological Exam Neurological Exam: Altered, Awake - Psychiatric Exam Psychiatric exam: Anxious - Skin Skin Exam: Normal Color Assessment and Plan (1) 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
[2017-08-18] MEDS: Piperacillin/Tazobact 3.375 GM in Sodium Chloride 0.9% 100 ML IVPB SCH ×3 (05:33→17:19)
[2017-08-18] MEDS: Fluconazole IV 200mg/100 ml NS 100 ML IVPB SCH (08:56)
[2017-08-18] MEDS: Lactobacillus Acidophilus 500 MU Cap PO SCH ×2 (08:56→17:14)
--- NOTE | 2017-08-18 11:36 | CP.PCM.PN ---
Subjective - Date & Time of Evaluation Date of Evaluation: 08/18/17 Time of Evaluation: 11:39 - Subjective Subjective: Patient looks comfortable Objective - Vital Signs/Intake and Output Vital Signs (last 24 hours): Temp Pulse Resp BP Pulse Ox 97.6 F 81 20 108/70 94 L 08/18/17 09:28 08/18/17 09:28 08/18/17 09:28 08/18/17 09:28 08/18/17 09:28 - Medications Medications: Current Medications Acetaminophen (Tylenol 325mg Tab) 650 mg PO Q6 PRN PRN Reason: Fever >100.4 F Baclofen (Lioresal) 20 mg PO TID [facility] Last Admin: 08/18/17 08:57 Dose: 20 mg Famotidine (Pepcid) 20 mg PO BID [facility] Last Admin: 08/18/17 09:05 Dose: 20 mg Heparin Sodium (Porcine) (Heparin) 5,000 units SC Q12 [facility] PRN Reason: Protocol Last Admin: 08/18/17 09:03 Dose: 5,000 units Home Med (Dimethyl Fumarate [Tecfidera]) 240 mg PO BID [facility] Last Admin: 08/18/17 09:03 Dose: Not Given Fluconazole (Diflucan Iv 200 Mg/100 Ml Ns) 100 mls @ 100 mls/hr IVPB DAILY [facility] Last Admin: 08/18/17 08:56 Dose: 100 mls/hr Piperacillin Sod/Tazobactam (Sod 3.375 gm/ Sodium Chloride) 100 mls @ 100 mls/ hr IVPB 0600,1200,1800,0000 [facility] PRN Reason: Protocol Last Admin: 08/18/17 05:33 Dose: 100 mls/hr Lactobacillus Acidophilus (Bacid Acidophilus) 1 cap PO BID [facility] Last Admin: 08/18/17 08:56 Dose: 1 cap Lactulose (Enulose) 20 gm PO DAILY PRN PRN Reason: Constipation Last Admin: 08/15/17 17:27 Dose: 20 gm Lamotrigine (Lamictal) 50 mg PO BID [facility] Last Admin: 08/18/17 09:05 Dose: 50 mg Lamotrigine (Lamictal) 200 mg PO BID [facility] Last Admin: 08/18/17 09:02 Dose: 200 mg Levetiracetam (Keppra) 2,000 mg PO Q12H [facility] Last Admin: 08/18/17 09:04 Dose: 2,000 mg Oxycodone/Acetaminophen (Percocet 5/325 Mg Tab) 1 tab PO Q6 PRN PRN Reason: Pain, moderate (4-7) Stop: 08/19/17 13:27 Last Admin: 08/17/17 17:10 Dose: 1 tab Quetiapine Fumarate (Seroquel) 100 mg PO HS [facility] Last Admin: 08/17/17 21:09 Dose: 100 mg Tamsulosin HCl (Flomax) 0.4 mg PO DAILY [facility] Last Admin: 08/18/17 08:58 Dose: 0.4 mg - Constitutional Appears: Confused, Chronically Ill - Head Exam Head Exam: NORMAL INSPECTION - Eye Exam Eye Exam: Normal appearance - ENT Exam ENT Exam: Mucous Membranes Moist - Neck Exam Neck Exam: Full ROM - Respiratory Exam Respiratory Exam: Clear to Ausculation Bilateral - Cardiovascular Exam Cardiovascular Exam: REGULAR RHYTHM, +S1, +S2 - GI/Abdominal Exam GI & Abdominal Exam: Normal Bowel Sounds - Neurological Exam Neurological Exam: Altered - Psychiatric Exam Psychiatric exam: Normal Affect - Skin Skin Exam: Pallor Assessment and Plan (1) 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
[2017-08-19] MEDS: Piperacillin/Tazobact 3.375 GM in Sodium Chloride 0.9% 100 ML IVPB SCH ×5 (00:04→23:03)
[2017-08-19] MEDS: Lactobacillus Acidophilus 500 MU Cap PO SCH ×2 (08:53→17:14)
[2017-08-19] MEDS: Oxycodone/Acetaminophen 5/325 mg Tab PO PRN (08:53)
[2017-08-19] MEDS: Fluconazole IV 200mg/100 ml NS 100 ML IVPB SCH (08:55)
--- NOTE | 2017-08-19 11:35 | CP.PCM.PN ---
Subjective - Date & Time of Evaluation Date of Evaluation: 08/19/17 Time of Evaluation: 17:24 - Subjective Subjective: No new c/o Objective - Vital Signs/Intake and Output Vital Signs (last 24 hours): Temp Pulse Resp BP Pulse Ox 98.2 F 97 H 20 125/72 96 08/19/17 09:31 08/19/17 09:31 08/19/17 09:31 08/19/17 09:31 08/19/17 09:31 - Medications Medications: Current Medications Acetaminophen (Tylenol 325mg Tab) 650 mg PO Q6 PRN PRN Reason: Fever >100.4 F Baclofen (Lioresal) 20 mg PO TID [facility] Last Admin: 08/19/17 08:46 Dose: 20 mg Famotidine (Pepcid) 20 mg PO BID [facility] Last Admin: 08/19/17 08:46 Dose: 20 mg Heparin Sodium (Porcine) (Heparin) 5,000 units SC Q12 [facility] PRN Reason: Protocol Last Admin: 08/19/17 08:47 Dose: 5,000 units Home Med (Dimethyl Fumarate [Tecfidera]) 240 mg PO BID [facility] Last Admin: 08/19/17 08:46 Dose: 240 mg Fluconazole (Diflucan Iv 200 Mg/100 Ml Ns) 100 mls @ 100 mls/hr IVPB DAILY [facility] Last Admin: 08/19/17 08:55 Dose: 100 mls/hr Piperacillin Sod/Tazobactam (Sod 3.375 gm/ Sodium Chloride) 100 mls @ 100 mls/ hr IVPB 0600,1200,1800,0000 [facility] PRN Reason: Protocol Last Admin: 08/19/17 05:39 Dose: 100 mls/hr Lactobacillus Acidophilus (Bacid Acidophilus) 1 cap PO BID [facility] Last Admin: 08/19/17 08:53 Dose: 1 cap Lactulose (Enulose) 20 gm PO DAILY PRN PRN Reason: Constipation Last Admin: 08/15/17 17:27 Dose: 20 gm Lamotrigine (Lamictal) 50 mg PO BID [facility] Last Admin: 08/19/17 08:45 Dose: 50 mg Lamotrigine (Lamictal) 200 mg PO BID [facility] Last Admin: 08/19/17 08:45 Dose: 200 mg Levetiracetam (Keppra) 2,000 mg PO Q12H [facility] Last Admin: 08/19/17 08:46 Dose: 2,000 mg Oxycodone/Acetaminophen (Percocet 5/325 Mg Tab) 1 tab PO Q6 PRN PRN Reason: Pain, moderate (4-7) Stop: 08/19/17 13:27 Last Admin: 08/19/17 08:53 Dose: 1 tab Quetiapine Fumarate (Seroquel) 100 mg PO HS [facility] Last Admin: 08/18/17 21:14 Dose: 100 mg Tamsulosin HCl (Flomax) 0.4 mg PO DAILY [facility] Last Admin: 08/19/17 08:46 Dose: 0.4 mg - Constitutional Appears: Confused, Chronically Ill - Head Exam Head Exam: NORMAL INSPECTION - Eye Exam Eye Exam: Normal appearance - ENT Exam ENT Exam: Mucous Membranes Moist - Neck Exam Neck Exam: Full ROM - Respiratory Exam Respiratory Exam: Clear to Ausculation Bilateral - Cardiovascular Exam Cardiovascular Exam: REGULAR RHYTHM, +S1, +S2 - GI/Abdominal Exam GI & Abdominal Exam: Normal Bowel Sounds - Neurological Exam Neurological Exam: Altered - Psychiatric Exam Psychiatric exam: Anxious, Depressed Assessment and Plan (1) 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
[2017-08-20] MEDS: Fluconazole IV 200mg/100 ml NS 100 ML IVPB SCH (08:39)
[2017-08-20] MEDS: Lactobacillus Acidophilus 500 MU Cap PO SCH ×2 (08:47→17:42)
[2017-08-20] MEDS ORDERED: Oxycodone/Acetaminophen 5/325 mg Tab PO PRN (09:56)
[2017-08-20] MEDS: Piperacillin/Tazobact 3.375 GM in Sodium Chloride 0.9% 50 ML IVPB SCH ×3 (13:00→23:05)
--- NOTE | 2017-08-20 18:44 | CP.PCM.PN ---
Subjective - Date & Time of Evaluation Date of Evaluation: 08/20/17 Time of Evaluation: 18:44 - Subjective Subjective: No new changes comfortable Objective - Vital Signs/Intake and Output Vital Signs (last 24 hours): Temp Pulse Resp BP Pulse Ox 97.5 F L 93 H 20 117/88 96 08/20/17 16:04 08/20/17 16:04 08/20/17 16:04 08/20/17 16:04 08/20/17 16:04 - Medications Medications: Current Medications Acetaminophen (Tylenol 325mg Tab) 650 mg PO Q6 PRN PRN Reason: Fever >100.4 F Baclofen (Lioresal) 20 mg PO TID [facility] Last Admin: 08/20/17 17:42 Dose: 20 mg Famotidine (Pepcid) 20 mg PO BID [facility] Last Admin: 08/20/17 17:42 Dose: 20 mg Heparin Sodium (Porcine) (Heparin) 5,000 units SC Q12 [facility] PRN Reason: Protocol Last Admin: 08/20/17 08:41 Dose: 5,000 units Home Med (Dimethyl Fumarate [Tecfidera]) 240 mg PO BID [facility] Last Admin: 08/20/17 17:42 Dose: 240 mg Fluconazole (Diflucan Iv 200 Mg/100 Ml Ns) 100 mls @ 100 mls/hr IVPB DAILY [facility] Last Admin: 08/20/17 08:39 Dose: 100 mls/hr Piperacillin Sod/Tazobactam (Sod 3.375 gm/ Sodium Chloride) 50 mls @ 50 mls/hr IVPB 0600,1200,1800,0000 [facility] PRN Reason: Protocol Last Admin: 08/20/17 17:41 Dose: 50 mls/hr Lactobacillus Acidophilus (Bacid Acidophilus) 1 cap PO BID [facility] Last Admin: 08/20/17 17:42 Dose: 1 cap Lactulose (Enulose) 20 gm PO DAILY PRN PRN Reason: Constipation Last Admin: 08/15/17 17:27 Dose: 20 gm Lamotrigine (Lamictal) 50 mg PO BID [facility] Last Admin: 08/20/17 17:42 Dose: 50 mg Lamotrigine (Lamictal) 200 mg PO BID [facility] Last Admin: 08/20/17 17:41 Dose: 200 mg Levetiracetam (Keppra) 2,000 mg PO Q12H [facility] Last Admin: 08/20/17 08:41 Dose: 2,000 mg Oxycodone/Acetaminophen (Percocet 5/325 Mg Tab) 1 tab PO Q6 PRN PRN Reason: Pain, moderate (4-7) Stop: 08/23/17 09:57 Quetiapine Fumarate (Seroquel) 100 mg PO HS [facility] Last Admin: 08/19/17 21:05 Dose: 100 mg Tamsulosin HCl (Flomax) 0.4 mg PO DAILY [facility] Last Admin: 08/20/17 08:41 Dose: 0.4 mg - Constitutional Appears: Confused, Chronically Ill - Head Exam Head Exam: ATRAUMATIC, NORMAL INSPECTION, NORMOCEPHALIC - Eye Exam Eye Exam: Normal appearance - ENT Exam ENT Exam: Mucous Membranes Moist - Neck Exam Neck Exam: Full ROM, Normal Inspection - Respiratory Exam Respiratory Exam: Clear to Ausculation Bilateral - Cardiovascular Exam Cardiovascular Exam: REGULAR RHYTHM, +S1, +S2 - GI/Abdominal Exam GI & Abdominal Exam: Soft, Normal Bowel Sounds - Neurological Exam Neurological Exam: Altered - Psychiatric Exam Psychiatric exam: Agitated, Anxious - Skin Skin Exam: Normal Color Assessment and Plan (1) 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
[2017-08-21] MEDS: Piperacillin/Tazobact 3.375 GM in Sodium Chloride 0.9% 50 ML IVPB SCH ×4 (05:15→23:04)
[2017-08-21] MEDS: Fluconazole IV 200mg/100 ml NS 100 ML IVPB SCH (08:17)
[2017-08-21] MEDS: Lactobacillus Acidophilus 500 MU Cap PO SCH ×2 (08:25→17:14)
--- NOTE | 2017-08-21 13:51 | CP.PCM.PN ---
Subjective - Date & Time of Evaluation Date of Evaluation: 08/21/17 Time of Evaluation: 13:51 - Subjective Subjective: Patient looks comfortable not in distress. Objective - Vital Signs/Intake and Output Vital Signs (last 24 hours): Temp Pulse Resp BP Pulse Ox 97.1 F L 75 20 113/73 94 L 08/21/17 08:48 08/21/17 08:48 08/21/17 08:48 08/21/17 08:48 08/21/17 08:48 - Medications Medications: Current Medications Acetaminophen (Tylenol 325mg Tab) 650 mg PO Q6 PRN PRN Reason: Fever >100.4 F Baclofen (Lioresal) 20 mg PO TID [facility] Last Admin: 08/21/17 12:06 Dose: 20 mg Famotidine (Pepcid) 20 mg PO BID [facility] Last Admin: 08/21/17 08:19 Dose: 20 mg Heparin Sodium (Porcine) (Heparin) 5,000 units SC Q12 [facility] PRN Reason: Protocol Last Admin: 08/21/17 08:20 Dose: 5,000 units Home Med (Dimethyl Fumarate [Tecfidera]) 240 mg PO BID [facility] Last Admin: 08/21/17 08:18 Dose: 240 mg Piperacillin Sod/Tazobactam (Sod 3.375 gm/ Sodium Chloride) 50 mls @ 50 mls/hr IVPB 0600,1200,1800,0000 [facility] PRN Reason: Protocol Last Admin: 08/21/17 12:05 Dose: 50 mls/hr Lactobacillus Acidophilus (Bacid Acidophilus) 1 cap PO BID [facility] Last Admin: 08/21/17 08:25 Dose: 1 cap Lactulose (Enulose) 20 gm PO DAILY PRN PRN Reason: Constipation Last Admin: 08/15/17 17:27 Dose: 20 gm Lamotrigine (Lamictal) 50 mg PO BID [facility] Last Admin: 08/21/17 08:18 Dose: 50 mg Lamotrigine (Lamictal) 200 mg PO BID [facility] Last Admin: 08/21/17 08:22 Dose: 200 mg Levetiracetam (Keppra) 2,000 mg PO Q12H [facility] Last Admin: 08/21/17 09:18 Dose: 2,000 mg Oxycodone/Acetaminophen (Percocet 5/325 Mg Tab) 1 tab PO Q6 PRN PRN Reason: Pain, moderate (4-7) Stop: 08/23/17 09:57 Last Admin: 08/21/17 10:02 Dose: 1 tab Quetiapine Fumarate (Seroquel) 100 mg PO [facility] Last Admin: 08/20/17 21:18 Dose: 100 mg Tamsulosin HCl (Flomax) 0.4 mg PO DAILY [facility] Last Admin: 08/21/17 08:21 Dose: 0.4 mg - Constitutional Appears: Confused, Chronically Ill - Head Exam Head Exam: ATRAUMATIC, NORMAL INSPECTION, NORMOCEPHALIC - Eye Exam Eye Exam: Normal appearance - ENT Exam ENT Exam: Mucous Membranes Moist - Neck Exam Neck Exam: Full ROM - Respiratory Exam Respiratory Exam: Clear to Ausculation Bilateral - Cardiovascular Exam Cardiovascular Exam: REGULAR RHYTHM, +S1, +S2 - GI/Abdominal Exam GI & Abdominal Exam: Soft, Normal Bowel Sounds - Neurological Exam Neurological Exam: Altered - Psychiatric Exam Psychiatric exam: Normal Affect - Skin Skin Exam: Normal Color Assessment and Plan (1) 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
[2017-08-22] MEDS: Piperacillin/Tazobact 3.375 GM in Sodium Chloride 0.9% 50 ML IVPB SCH ×3 (05:18→19:05)
[2017-08-22] MEDS: Lactobacillus Acidophilus 500 MU Cap PO SCH ×2 (08:59→18:04)
--- NOTE | 2017-08-22 11:24 | CP.PCM.PN ---
Subjective - Date & Time of Evaluation Date of Evaluation: 08/22/17 Time of Evaluation: 11:24 - Subjective Subjective: Comfortable not in distress Objective - Vital Signs/Intake and Output Vital Signs (last 24 hours): Temp Pulse Resp BP Pulse Ox 97.2 F L 69 20 120/60 99 08/22/17 08:12 08/22/17 08:12 08/22/17 08:12 08/22/17 08:12 08/22/17 08:12 - Medications Medications: Current Medications Acetaminophen (Tylenol 325mg Tab) 650 mg PO Q6 PRN PRN Reason: Fever >100.4 F Baclofen (Lioresal) 20 mg PO TID [facility] Last Admin: 08/22/17 09:02 Dose: 20 mg Famotidine (Pepcid) 20 mg PO BID [facility] Last Admin: 08/22/17 09:01 Dose: 20 mg Heparin Sodium (Porcine) (Heparin) 5,000 units SC Q12 [facility] PRN Reason: Protocol Last Admin: 08/22/17 09:02 Dose: 5,000 units Home Med (Dimethyl Fumarate [Tecfidera]) 240 mg PO BID [facility] Last Admin: 08/22/17 09:02 Dose: 240 mg Piperacillin Sod/Tazobactam (Sod 3.375 gm/ Sodium Chloride) 50 mls @ 50 mls/hr IVPB 0600,1200,1800,0000 [facility] PRN Reason: Protocol Last Admin: 08/22/17 05:18 Dose: 50 mls/hr Lactobacillus Acidophilus (Bacid Acidophilus) 1 cap PO BID [facility] Last Admin: 08/22/17 08:59 Dose: 1 cap Lactulose (Enulose) 20 gm PO DAILY PRN PRN Reason: Constipation Last Admin: 08/15/17 17:27 Dose: 20 gm Lamotrigine (Lamictal) 50 mg PO BID [facility] Last Admin: 08/22/17 08:59 Dose: 50 mg Lamotrigine (Lamictal) 200 mg PO BID [facility] Last Admin: 08/22/17 09:00 Dose: 200 mg Levetiracetam (Keppra) 2,000 mg PO Q12H [facility] Last Admin: 08/22/17 08:59 Dose: 2,000 mg Oxycodone/Acetaminophen (Percocet 5/325 Mg Tab) 1 tab PO Q6 PRN PRN Reason: Pain, moderate (4-7) Stop: 08/23/17 09:57 Last Admin: 08/21/17 10:02 Dose: 1 tab Quetiapine Fumarate (Seroquel) 100 mg PO [facility] Last Admin: 08/21/17 21:00 Dose: 100 mg Tamsulosin HCl (Flomax) 0.4 mg PO DAILY [facility] Last Admin: 08/22/17 09:02 Dose: 0.4 mg - Constitutional Appears: Confused, Chronically Ill - Head Exam Head Exam: NORMAL INSPECTION - Eye Exam Eye Exam: Normal appearance - ENT Exam ENT Exam: Mucous Membranes Moist - Respiratory Exam Respiratory Exam: Clear to Ausculation Bilateral - Cardiovascular Exam Cardiovascular Exam: REGULAR RHYTHM, +S1, +S2 - GI/Abdominal Exam GI & Abdominal Exam: Normal Bowel Sounds - Neurological Exam Neurological Exam: Altered - Psychiatric Exam Psychiatric exam: Normal Affect - Skin Skin Exam: Normal Color Assessment and Plan (1) 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
[2017-08-22] MEDS ORDERED: Fluconazole IV 200mg/100 ml NS 100 ML IVPB SCH (17:00)
[2017-08-22 23:57] VITALS: TEMP 98.1; O2SAT 96
[2017-08-23] MEDS: Piperacillin/Tazobact 3.375 GM in Sodium Chloride 0.9% 50 ML IVPB SCH ×3 (00:30→12:39)
[2017-08-23] MEDS: Lactobacillus Acidophilus 500 MU Cap PO SCH (08:53)
[2017-08-23 09:05] VITALS: BP 119/73; PULSE 87
--- NOTE | 2017-08-23 12:08 | CP.PCM.DIS ---
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 He presented in ER via EMS with mental status changes, severe lactic acidosis, leukocytosis, delirum, hypotension. Well responded to rx will follow in TCU. the condition and the prognosis of the patient discussed with the . She is aware that it is not possible to control the recurrence of the infections 100% because his severe base line condition and that those condition can be fatal to the patient. Patient well improved on iv antibx. Stable for dc will start Hiprex for uti prevention. Discharge Exam - Head Exam Head Exam: NORMAL INSPECTION - Eye Exam Eye Exam: Normal appearance - Neck Exam Neck exam: Full Rom - Respiratory Exam Respiratory Exam: Clear to PA & Lateral - Cardiovascular Exam Cardiovascular Exam: REGULAR RHYTHM, +S1, +S2 - GI/Abdominal Exam GI & Abdominal Exam: Normal Bowel Sounds - Neurological Exam Neurological exam: Alert - Psychiatric Exam Psychiatric exam: Normal Affect - Skin Skin Exam: Normal Color Discharge Plan - Discharge Medications Prescriptions: Methenamine Hippurate [Hiprex] 1 gm PO DAILY 60 Days #60 tab - Follow Up Plan Condition: GOOD Disposition: HOME/ ROUTINE Instructions: Urinary Tract Infection in Men (DC)
== END 2017-08-23 13:45 | disposition home or self-care (01) | DRG 690 ==
LOC: H.TCU 19:11
PROVIDERS: ADMIT Internal Medicine; ATTEND Internal Medicine
DX: N39.0 Urinary tract infection, site not specified (principal); F05 Delirium due to known physiological condition; G35 Multiple sclerosis; F32.9 Major depressive disorder, single episode, unspecified; F41.9 Anxiety disorder, unspecified; G40.909 Epilepsy, unspecified, not intractable, without status epilepticus; E78.00 Pure hypercholesterolemia, unspecified; Z86.718 Personal history of other venous thrombosis and embolism

== ENCOUNTER 2017-08-16 09:01 | Day surgery (SDC) | payer MEDICARE, OTHER ==
[2017-08-16] MEDS ORDERED: Lidocaine 1% Inj (20ml) ONE (11:12)
[2017-08-16 11:33] VITALS: RESP 18
--- NOTE | 2017-08-16 11:59 | CP.SDSHP ---
Same Day Surgery H & P - History Proposed Procedure: picc insertion Pre-Op Diagnosis: infection - Allergies Allergies: Allergies cefazolin Allergy (Verified 08/09/17 12:08) RASH, ITCHINESS - Physical Exam Vital Signs: Vital Signs 08/16/17 08/16/17 08/16/17 10:01 10:05 11:29 Temperature 98.1 F 98.1 F Pulse Rate 105 H 105 H 83 Respiratory 20 18 Rate Blood Pressure 97/70 L 110/73 O2 Sat by Pulse 92 L Oximetry - Impression Impression: 51yo male requiring iv antibiotics; plan picc placement - Date & Time Date: 08/16/17 Time: 11:30 Short Stay Discharge - Short Stay Discharge Admitting Diagnosis/Reason for Visit: UTI/IV TREATMENT Disposition: HOME/ ROUTINE
--- NOTE | 2017-08-16 12:01 | PCM.SURG1 ---
Surgeon's Initial Post Op Note - Surgeon's Notes Surgeon: Julio C Porter MD Equal Opportunity Assistant: None Type of Anesthesia: Local Pre-Operative Diagnosis: requiring IV antiobiotics Operative Findings: patent right basilic vein. catheter length: 37 cm. catheter tip: cavoatrial junction Post-Operative Diagnosis: same Operation Performed: RUE PICC insertion Specimen/Specimens Removed: n/a Estimated Blood Loss: EBL {In ML}: 0 Date of Surgery/Procedure: 08/16/17 Time of Surgery/Procedure: 11:45
[2017-08-16 12:31] VITALS: BP 98/77; PULSE 94; TEMP 97.6; O2SAT 100
--- NOTE | 2017-08-16 16:18 | VASCULAR ---
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 COMPARISON: PICC insertion performed 05/30/2017. PROCEDURE: 1. Focused ultrasound of the right upper extremity vasculature. 2. Ultrasound-guided access. 3. Insertion of peripherally inserted central venous catheter. 4. Fluoroscopic localization of catheter tip. PRE-PROCEDURE FINDINGS: 1. Patent right basilic vein. POST-PROCEDURE FINDINGS: 1. Placement of 4 [place] single-lumen PICC. 2. Catheter length: 37 cm. 3. Catheter tip at cavoatrial junction. INTERVENTIONAL RADIOLOGIST: Julio C Porter M.D. (the attending was present for the entire procedure) ANESTHESIA: None. MEDICATION: Lidocaine 1% for local subcutaneous analgesia. COMPLICATIONS: None. RADIATION DOSE: Fluoroscopy Time: 11.0 seconds Cumulative Dose: 1.38 mGy PROCEDURE DESCRIPTION AND FINDINGS: The risks, benefits, alternatives and possible complications of the procedure were fully discussed; all questions were answered and informed consent was obtained. The patient was brought into the interventional suite and a pre-procedure 'time-out' was performed. The patient was placed on the fluoroscopy table in the supine position. The right upper extremity was prepped and draped in the usual sterile fashion. Maximum sterile barrier precautions were maintained throughout the entire procedure. Preliminary ultrasound images of the right upper extremity vasculature demonstrate patency of the right basilic vein. Following subcutaneous infiltration of 1% lidocaine for local analgesia, under ultrasound guidance, a 21-gauge needle was advanced into the right basilic vein with real-time visualization of needle entry. The ultrasound images were permanently recorded and submitted to the PACS. A 0.018 guidewire was advanced centrally to the cavoatrial junction. A 4.5 [place] peel-away sheath was advanced over the guidewire. After obtaining length measurement, a 4 [place] single-lumen PICC was placed with the tip of the catheter at the cavoatrial junction. The total length of the catheter is 37 cm. The hub of the PICC was secured to the skin using a sterile adhesive bandage. The patient tolerated the procedure well without immediate post-procedure complications and was transferred back to the floor in stable condition. IMPRESSION: SUCCESSFUL INSERTION OF RIGHT UPPER EXTREMITY PICC. PICC OK TO USE.
== END 2017-08-16 12:30 | disposition still patient (30) ==
LOC: H.OPSURG 09:01
PROVIDERS: ATTEND Internal Medicine
DX: N39.0 Urinary tract infection, site not specified (principal)
CPT/HCPCS: 36569; 76937; 77001; A4310; C1751

== ENCOUNTER 2018-03-05 18:35 | Inpatient (IN) | payer MEDICARE, OTHER ==
[2018-03-05 18:35] VITALS: BMI 33.9
[2018-03-05] MEDS ORDERED: Sodium Chloride 0.9% 1,000 ML IV STA (19:20)
[2018-03-05 19:46] LABS: BASO # 0.1 K/uL (0.0-0.2); BASO % 0.3 % (0.0-2.0); EOS # 0.4 K/uL (0.0-0.7); EOS % 1.7 % (0.0-4.0); HEMOGLOBIN 14.9 g/dL (12.0-18.0); MEAN CELL VOLUME 91.9 fl (80.0-94.0); MEAN CORPUSCULAR HEMOGLOBIN 29.9 pg (27.0-31.0); MEAN CORPUSCULAR HGB CONC 32.6 g/dL (33.0-37.0); MEAN PLATELET VOLUME 7.5 fl (7.2-11.7); MONO # 2.8 K/uL (0.0-0.8); NEUT # 15.3 K/uL (1.8-7.0); RBC 4.97 Mil/uL (4.40-5.90); RED CELL DISTRIBUTION WIDTH 14.2 % (11.5-14.5); WHITE BLOOD COUNT 21.5 K/uL (4.8-10.8)
[2018-03-05 20:00] LABS: VENOUS BLOOD GAS BASE EXCESS 5.3 mmol/L (0.0-2.0); VENOUS BLOOD GAS PCO2 49 mmHg (40-60); VENOUS BLOOD GAS PO2 25 mm/Hg (30-55); VENOUS BLOOD PH 7.41 (7.32-7.43)
[2018-03-05 20:02] LABS: ALB/GLOB RATIO 1.3 (1.0-2.1); ALT/SGPT 22 U/L (21-72); AST/SGOT 17 U/L (17-59); BLOOD UREA NITROGEN 11 mg/dl (9-20); CALCIUM 9.2 mg/dL (8.4-10.2); GFR AFRICAN-AMERICAN > 60; GFR NON-AFRICAN AMERICAN > 60
--- NOTE | 2018-03-05 20:05 | ED PDOC ---
HPI: Fever Time Seen by Provider: 03/05/18 19:01 Additional Comments: Patient is a 52 y/o male with history of MS, seizure disorder and frequent UTIs who was brought to the ED by his for a fever at home of 101. Patient's called Dr. Morris and was instructed to give patient Advil and to start macrobid. They were advised to come the ER if the fever does not go down. Patient is a poor historian states he has back pain since 1999. Denies cough, nausea, vomiting, or abnormal stools. Past Medical History Reviewed: Historical Data, Nursing Documentation, Vital Signs Vital Signs: Last Vital Signs Temp 98.7 F 03/05/18 21:07 Pulse 117 H 03/05/18 21:07 Resp 16 03/05/18 21:07 BP 110/61 03/05/18 21:07 Pulse Ox 96 03/05/18 21:07 - Medical History PMH: Anemia, Anxiety, Arthritis (BACK), COPD, Dementia, Depression, Deep Vein Thrombosis, HTN, Hypercholesterolemia, Kidney Stones (x3 years ago), Multiple Sclerosis, Peripheral Edema (B/L LE no longer swollen), Pneumonia, Pulmonary Embolism (hx of DVT), Chronic Kidney Disease, Seizures Denies: HIV - Family History Family History: States: Unknown Family Hx - Immunization History Hx Tetanus Toxoid Vaccination: No Hx Influenza Vaccination: Yes Hx Pneumococcal Vaccination: Yes - Home Medications Home Medications: Ambulatory Orders Medication Instructions Recorded Baclofen [Lioresal] 20 mg PO TID #90 tab 07/14/17 Methenamine Hippurate [Hiprex] 1 gm PO DAILY 60 Days #60 tab 08/23/17 Dimethyl Fumarate [Tecfidera] 240 mg PO BID 01/20/18 Lamotrigine [Lamictal] 200 mg PO BID 01/20/18 levETIRAcetam [Keppra] 2,000 mg PO BID 01/20/18 Fentanyl 25 mcg TD Q3 01/21/18 - Allergies Allergies/Adverse Reactions: Allergies Allergy/AdvReac Type Severity Reaction Status Date / Time cefazolin Allergy RASH, Verified 03/05/18 18:37 ITCHINESS Review of Systems ROS Statement: Except As Marked, All Systems Reviewed And Found Negative Constitutional: Positive for: Fever Respiratory: Negative for: Cough Gastrointestinal: Negative for: Nausea, Vomiting, Diarrhea, Constipation Physical Exam - Reviewed Nursing Documentation Reviewed: Yes Vital Signs Reviewed: Yes - Physical Exam Appears: Negative for: Well (chronically ill appearing, obese) Head Exam: Positive for: ATRAUMATIC, NORMOCEPHALIC Skin: Positive for: Normal Color, Warm, Dry Eye Exam: Positive for: EOMI, Normal appearance, PERRL Neck: Positive for: Normal, Painless ROM, Supple Cardiovascular/Chest: Positive for: Tachycardia Respiratory: Positive for: Normal Breath Sounds. Negative for: Respiratory Distress Gastrointestinal/Abdominal: Positive for: Tenderness (suprapubic tenderness) Extremity: Positive for: Normal ROM. Negative for: Pedal Edema, Deformity Neurologic/Psych: Positive for: Alert, Oriented, Other (random spastic contractions of upper extremities). Negative for: Motor/Sensory Deficits - Laboratory Results Result Diagrams: 03/05/18 19:35 03/05/18 19:35 - ECG O2 Sat by Pulse Oximetry: 94 (RA) Pulse Ox Interpretation: Abnormal Medical Decision Making Medical Decision Making: Time: 19:20 A/P: Patient is a 52 y/o male with history of seizure disorder, MS, and frequent UTIs who presents with fever. Patient is currently febrile and tachycardic. Likely sources is urine, will initiate sepsis workup.-- --VBG --EKG --CMP --Magnesium --Phosphorous --CBC w/ diff --PTT --Prothrombin time --CXR --Tyleonl 975 mg PO --Toradol 30 mg IVP --Blood culture --Urine culture --Urinalysis 2044 Patient has evidence of urosepsis. Broad spec ABx ordered as well as keppra to avoid seizure. Dr. Morris aware. Patient's fever resolving, HR improving. ----- Scribe Attestation: Documented by Julio Ramirez, acting as a scribe for Shaun Boyer MD. Provider Scribe Attestation: All medical record entries made by the Scribe were at my direction and personally dictated by me. I have reviewed the chart and agree that the record accurately reflects my personal performance of the history, physical exam, medical decision making, and the department course for this patient. I have also personally directed, reviewed, and agree with the discharge instructions and disposition. Disposition - Clinical Impression Clinical Impression: UTI (urinary tract infection), Sepsis - Patient ED Disposition Is Patient to be Admitted: Yes - Disposition Disposition Time: 20:43 Condition: SERIOUS
[2018-03-05 20:09] LABS: INR 1.2; PROTHROMBIN TIME 13.3 Seconds (9.8-13.1)
[2018-03-05 20:12] LABS: PARTIAL THROMBOPLASTIN TIME 29.8 Seconds (25.6-37.1)
[2018-03-05] MEDS ORDERED: Piperacillin/Tazobact 3.375 GM in Sodium Chloride 0.9% 100 ML IVPB STA (20:43)
[2018-03-05 20:53] LABS: URINE BACTERIA MANY (<OCC); URINE BILIRUBIN NEGATIVE (NEGATIVE); URINE BLOOD SMALL (NEGATIVE); URINE CLARITY CLOUDY (Clear); URINE COLOR YELLOW (YELLOW); URINE GLUCOSE (UA) 50 mg/dL (Normal); URINE LEUKOCYTE ESTERASE LARGE Leu/uL (Negative); URINE PROTEIN 100 mg/dL (NEGATIVE); URINE UROBILINOGEN 0.2-1.0 mg/dL (0.2-1.0)
[2018-03-05] MEDS ORDERED: Piperacillin/Tazobact 3.375 gm Inj IVPB ONE (21:16)
[2018-03-05] MEDS ORDERED: Morphine 4 MG/ML VIAL IVP STA (21:23)
[2018-03-05] MEDS ORDERED: Morphine 4 MG/ML VIAL ONE (21:31)
[2018-03-05] MEDS ORDERED: Vancomycin 1 g Inj ONE (21:31)
[2018-03-05] MEDS ORDERED: levETIRAcetam 2,000 MG in Sodium Chloride 0.9% 100 ML IVPB ONE (21:54)
[2018-03-06] MEDS: Sodium Chloride 0.9% 1,000 ML IV SCH ×4 (02:00→17:48)
[2018-03-06] MEDS: Piperacillin/Tazobact 3.375 GM in Sodium Chloride 0.9% 100 ML IVPB SCH ×4 (04:38→21:55)
[2018-03-06 05:37] LABS: BASO # 0.1 K/uL (0.0-0.2); BASO % 0.5 % (0.0-2.0); EOS # 0.4 K/uL (0.0-0.7); EOS % 2.5 % (0.0-4.0); HEMOGLOBIN 13.9 g/dL (12.0-18.0); LYMPH # 1.5 K/uL (1.0-4.3); LYMPH % 9.6 % (20.0-40.0); MEAN CELL VOLUME 91.7 fl (80.0-94.0); MEAN CORPUSCULAR HEMOGLOBIN 30.9 pg (27.0-31.0); MEAN CORPUSCULAR HGB CONC 33.7 g/dL (33.0-37.0); MEAN PLATELET VOLUME 7.4 fl (7.2-11.7); MONO # 1.9 K/uL (0.0-0.8); MONO % 11.9 % (0.0-10.0); NEUT # 11.9 K/uL (1.8-7.0); NEUT % 75.5 % (50.0-75.0); NRBC % 0.3 % (0.0-0.0); PLATELET COUNT 269 K/uL (130-400); RBC 4.51 Mil/uL (4.40-5.90); RED CELL DISTRIBUTION WIDTH 14.3 % (11.5-14.5); WHITE BLOOD COUNT 15.7 K/uL (4.8-10.8)
[2018-03-06 05:45] LABS: BLOOD UREA NITROGEN 11 mg/dl (9-20); CALCIUM 8.7 mg/dL (8.4-10.2); GFR AFRICAN-AMERICAN > 60; GFR NON-AFRICAN AMERICAN > 60
--- NOTE | 2018-03-06 08:35 | CARD ---
APPROVED REPORT Date of service: 03/05/2018 <Conclusion> Sinus tachycardia Pulmonary disease pattern Left anterior fascicular block Abnormal ECG
[2018-03-06] MEDS: Oxycodone/Acetaminophen 5/325 mg Tab PO PRN (08:51)
[2018-03-06] MEDS: Enoxaparin 40 mg Syringe SC SCH (08:54)
[2018-03-06] MEDS: Lactobacillus Acidophilus 500 MU Cap PO SCH ×2 (10:01→17:44)
[2018-03-06] MEDS: Fluconazole IV 200mg/100 ml NS 100 ML IVPB SCH (11:02)
[2018-03-06 11:19] LABS: BANDS 2 % (0-2); EOSINOPHIL 6 % (0-7); LYMPHOCYTE 8 % (20-50); MONOCYTE 12 % (0-10); NEUTROPHIL 72 % (42-75); PLATELET ESTIMATE NORMAL (NORMAL); TOTAL CELLS COUNTED 100
--- NOTE | 2018-03-06 11:27 | RAD ---
Date of service: 03/05/2018 HISTORY: Sepsis Patient COMPARISON: 06/01/2017 FINDINGS: LUNGS: No interval consolidation. Lung volumes low-normal. Large body habitus status noted PLEURA: No significant pleural effusion identified, no pneumothorax apparent. CARDIOVASCULAR: Minimal cardiomegaly -similar. Probable mild concomitant pulmonary venous congestion -shallow lung volumes accentuating this OSSEOUS STRUCTURES: No significant abnormalities. VISUALIZED UPPER ABDOMEN: Normal. OTHER FINDINGS: None. IMPRESSION: No interval consolidation. Minimal cardiomegaly and mild concomitant pulmonary venous congestion. Possible interval increased pulmonary venous congestion since prior exam
--- NOTE | 2018-03-06 11:48 | CP.PCM.CON ---
History of Present Illness - History of Present Illness History of Present Illness: 52 YO M with h/o MS, paraplegia, urinary retention needing caterterization, recurrent uti, h/o DVT, pe, chronic pain on fentanyl, baclofen, h/o seizures, currently admitted for a recurrent UTI Pt also has a history of status epilepticus and sepsis related to recurrent UTIs. UA on current admission revealed UTI. . 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, denies smoking, alcohol Allergies Cefazolin Meds reviewed including fentanyl Review of Systems - Review of Systems All systems: reviewed and no additional remarkable complaints except - Constitutional Constitutional: Anorexia - EENT Eyes: As Per HPI Ears: absent: As Per HPI, Decreased Hearing, Ear Discharge, Ear Pain, Tinnitus, Abnormal Hearing, Disequilibrium, Dizziness, Other Nose/Mouth/Throat: absent: As Per HPI, Epistaxis, Nasal Congestion, Nasal Discharge, Nasal Obstruction, Nasal Trauma, Nose Pain, Post Nasal Drip, Sinus Pain, Sinus Pressure, Bleeding Gums, Change in Voice, Dental Pain, Dry Mouth, Dysphagia, Halitosis, Hoarsness, Lip Swelling, Mouth Lesions, Mouth Pain, Odynophagia, Sore Throat, Throat Swelling, Tongue Swelling, Facial Pain, Neck Pain, Neck Mass, Other - Cardiovascular Cardiovascular: absent: As Per HPI, Acrocyanosis, Chest Pain, Chest Pain at Rest , Chest Pain with Activity, Claudication, Diaphoresis, Dyspnea, Dyspnea on Exertion, Edema, Irregular Heart Rhythm, Pain Radiating to Arm/Neck/Jaw, Leg Edema, Leg Ulcers, Lightheadedness, Orthopnea, Palpitations, Paroxysmal Nocturnal Dyspnea, Pedal Edema, Radiating Pain, Rapid Heart Rate, Slow Heart Rate, Syncope, Other - Respiratory Respiratory: absent: As Per HPI, Cough, Dyspnea, Hemoptysis, Dyspnea on Exertion , Wheezing, Snoring, Stridor, Pain on Inspiration, Chest Congestion, Excessive Mucous Production, Change in Mucous Color, Pain with Coughing, Other - Gastrointestinal Gastrointestinal: absent: As Per HPI, Abdominal Pain, Belching, Bloating, Change in Bowel Habits, Change in Stool Character, Coffee Ground Emesis, Constipation, Cramping, Diarrhea, Dyspepsia, Dysphagia, Early Satiety, Excessive Flatus, Fecal Incontinence, Heartburn, Hematemesis, Hematochezia, Loose Stools, Melena, Nausea, Odynophagia, Temesmus, Vomiting, Other - Genitourinary Genitourinary: As Per HPI - Musculoskeletal Musculoskeletal: As Per HPI - Integumentary Integumentary: absent: As Per HPI, Acne, Alopecia, Bleeding Lesions, Change in Hair, Change in Nails, Change in Pigmentation, Changing Lesions, Dry Skin, Erythema, Furuncle, Hirsutism, Lesions, New Lesions, Non-Healing Lesions, Photosensitivity, Pruritus, Rash, Skin Pain, Skin Ulcer, Sores, Striae, Swelling , Unusual Bruising, Wounds, Jaundice, Other - Neurological Neurological: As Per HPI - Psychiatric Psychiatric: absent: As Per HPI, Abnormal Sleep Pattern, Anhedonia, Anxiety, Auditory Hallucinations, Behavioral Changes, Change in Appetite, Change in Libido, Confusion, Depression, Difficulty Concentrating, Hallucinations, Homicidal Ideation, Hopelessness, Irritability, Memory Loss, Mood Swings, Panic Attacks, Paranoia, Suicidal Ideation, Visual Hallucinations, Tactile Hallucinations, Other - Endocrine Endocrine: absent: As Per HPI, Change in Body Appearance, Change in Libido, Cold Intolorance, Deepening of Voice, Excessive Sweating, Fatigue, Flushing, Heat Intolorance, Increase in Ring/Shoe/Hat Size, Palpitations, Polydipsia, Polyphagia, Polyuria, Other - Hematologic/Lymphatic Hematologic: absent: As Per HPI, Easy Bleeding, Easy Bruising, Lymphadenopathy, Other Past Patient History - Infectious Disease Hx of Infectious Diseases: None - Tetanus Immunizations Tetanus Immunization: Unknown - Past Medical History & Family History Past Medical History?: Yes - Past Social History Smoking Status: Unknown If Ever Smoked - CARDIAC Hx Hypercholesterolemia: Yes Hx Hypertension: Yes Hx Peripheral Edema: Yes (B/L LE no longer swollen) - PULMONARY Hx Chronic Obstructive Pulmonary Disease (COPD): Yes Hx Pneumonia: Yes Hx Pulmonary Embolism: Yes (hx of DVT) - NEUROLOGICAL Hx Dementia: Yes Hx Multiple Sclerosis: Yes Hx Seizures: Yes - HEENT Hx HEENT Problems: Yes (Poor vision, L eye) - RENAL Hx Chronic Kidney Disease: Yes Hx Kidney Stones: Yes (x3 years ago) - ENDOCRINE/METABOLIC Hx Endocrine Disorders: No - HEMATOLOGICAL/ONCOLOGICAL Hx AIDS: No Hx Anemia: Yes Hx Human Immunodeficiency Virus (HIV): No - INTEGUMENTARY Hx Dermatological Problems: No - MUSCULOSKELETAL/RHEUMATOLOGICAL Hx Arthritis: Yes (BACK) Hx Falls: No - GASTROINTESTINAL Hx Gastrointestinal Disorders: Yes Hx Constipation: Yes - GENITOURINARY/GYNECOLOGICAL Hx Genitourinary Disorders: Yes Hx Incontinence: Yes Hx Urinary Tract Infection: Yes (Recurrent) - PSYCHIATRIC Hx Anxiety: Yes Hx Depression: Yes Hx Substance Use: No - SURGICAL HISTORY Hx Surgeries: Yes Other/Comment: cysto with removal of stent 05/19/16- kidney stones - ANESTHESIA Hx Anesthesia: Yes Hx Anesthesia Reactions: No Hx Malignant Hyperthermia: No Meds Allergies/Adverse Reactions: Allergies Allergy/AdvReac Type Severity Reaction Status Date / Time cefazolin Allergy RASH, Verified 03/05/18 18:37 ITCHINESS - Medications Medications: Current Medications Acetaminophen (Tylenol 325mg Tab) 975 mg PO ONCE PRN PRN Reason: Fever >100.4 F Last Admin: 03/05/18 19:38 Dose: 975 mg Baclofen (Lioresal) 20 mg PO TID [facility] Last Admin: 03/06/18 08:56 Dose: 20 mg Enoxaparin Sodium (Lovenox) 40 mg SC DAILY [facility] PRN Reason: Protocol Last Admin: 03/06/18 08:54 Dose: 40 mg Fentanyl (Duragesic) 1 patch TD Q3D [facility] PRN Reason: Protocol Last Admin: 03/06/18 01:37 Dose: 1 patch Home Med (Dimethyl Fumarate [Tecfidera]) 240 mg PO BID [facility] Last Admin: 03/06/18 08:57 Dose: 240 mg Sodium Chloride (Sodium Chloride 0.9%) 1,000 mls @ 150 mls/hr IV .Q6H40M [facility] Last Admin: 03/06/18 11:04 Dose: 150 mls/hr Piperacillin Sod/Tazobactam (Sod 3.375 gm/ Sodium Chloride) 100 mls @ 100 mls/ hr IVPB Q6 [facility] PRN Reason: Protocol Last Admin: 03/06/18 10:03 Dose: 100 mls/hr Fluconazole (Diflucan Iv 200 Mg/100 Ml Ns) 100 mls @ 100 mls/hr IVPB DAILY [facility] PRN Reason: Protocol Last Admin: 03/06/18 11:02 Dose: 100 mls/hr Lactobacillus Acidophilus (Bacid Acidophilus) 1 cap PO BID [facility] Last Admin: 03/06/18 10:01 Dose: 1 cap Lamotrigine (Lamictal) 200 mg PO BID [facility] Last Admin: 03/06/18 08:57 Dose: 200 mg Levetiracetam (Keppra) 2,000 mg PO BID [facility] Last Admin: 03/06/18 08:55 Dose: 2,000 mg Methenamine Hippurate (Hiprex) 1 gm PO DAILY [facility] PRN Reason: Protocol Last Admin: 03/06/18 09:25 Dose: 1 gm Oxycodone/Acetaminophen (Percocet 5/325 Mg Tab) 1 tab PO Q6 PRN PRN Reason: Pain, severe (8-10) Stop: 03/09/18 08:05 Last Admin: 03/06/18 08:51 Dose: 1 tab Physical Exam - Constitutional Appears: Non-toxic, Confused, Chronically Ill - Head Exam Head Exam: NORMOCEPHALIC - Eye Exam Eye Exam: PERRL. absent: Scleral icterus - ENT Exam ENT Exam: Mucous Membranes Dry, Normal External Ear Exam - Neck Exam Neck exam: Negative for: Lymphadenopathy - Respiratory Exam Respiratory Exam: Decreased Breath Sounds, Rhonchi - Cardiovascular Exam Cardiovascular Exam: REGULAR RHYTHM - GI/Abdominal Exam GI & Abdominal Exam: Diminished Bowel Sounds, Soft. absent: Tenderness - Rectal Exam Rectal Exam: Deferred - Exam Exam: NORMAL INSPECTION - Extremities Exam Extremities exam: Negative for: pedal edema - Back Exam Back exam: absent: CVA tenderness (L), CVA tenderness (R) - Neurological Exam Neurological exam: Alert, Altered, CN II-XII Intact, Motor Sensory Deficit Additional comments: bedridden confused paraplegic - Psychiatric Exam Psychiatric exam: Agitated, Anxious, Depressed - Skin Skin Exam: Dry Results - Vital Signs Recent Vital Signs: Last Vital Signs Temp 99.3 F 03/06/18 08:02 Pulse 120 H 03/06/18 08:02 Resp 18 03/06/18 08:02 BP 124/74 03/06/18 08:02 Pulse Ox 96 03/06/18 08:02 - Labs Result Diagrams: 03/06/18 04:20 03/06/18 04:20 Labs: Laboratory Results - last 24 hr 03/05/18 03/05/18 03/05/18 19:35 19:35 19:35 WBC 21.5 H D RBC 4.97 Hgb 14.9 D Hct 45.6 MCV 91.9 D MCH 29.9 MCHC 32.6 L RDW 14.2 Plt Count 300 MPV 7.5 Neut % (Auto) 71.0 Lymph % (Auto) 14.0 L Sully % (Auto) 13.0 H Eos % (Auto) 1.7 Baso % (Auto) 0.3 Neut # (Auto) 15.3 H Lymph # (Auto) 3.0 Sully # (Auto) 2.8 H Eos # (Auto) 0.4 Baso # (Auto) 0.1 Neutrophils % (Manual) Band Neutrophils % Lymphocytes % (Manual) Monocytes % (Manual) Eosinophils % (Manual) Platelet Estimate RBC Morphology PT 13.3 H INR 1.2 APTT 29.8 pO2 VBG pH VBG pCO2 VBG HCO3 VBG Total CO2 VBG O2 Sat (Calc) VBG Base Excess VBG Potassium Glucose Lactate FiO2 Crit Value Called To Crit Value Called By Crit Value Read Back Blood Gas Notified Time Sodium 137 Potassium 4.2 Chloride 101 Carbon Dioxide 24 Anion Gap 16 BUN 11 Creatinine 0.6 L Est GFR ( Amer) > 60 Est GFR (Non-Af Amer) > 60 Random Glucose 99 Calcium 9.2 Phosphorus 2.8 Magnesium 1.7 Total Bilirubin 0.6 AST 17 ALT 22 Alkaline Phosphatase 102 Total Protein 7.2 Albumin 4.0 Globulin 3.2 Albumin/Globulin Ratio 1.3 Venous Blood Potassium Urine Color Urine Clarity Urine pH Ur Specific [place] Urine Protein Urine Glucose (UA) Urine Ketones Urine Blood Urine Nitrate Urine Bilirubin Urine Urobilinogen Ur Leukocyte Esterase Urine RBC (Auto) Urine Microscopic WBC Urine Bacteria 03/05/18 03/05/18 03/06/18 19:51 20:37 04:20 WBC 15.7 H RBC 4.51 Hgb 13.9 Hct 41.3 MCV 91.7 MCH 30.9 MCHC 33.7 RDW 14.3 Plt Count 269 MPV 7.4 Neut % (Auto) 75.5 H Lymph % (Auto) 9.6 L Sully % (Auto) 11.9 H Eos % (Auto) 2.5 Baso % (Auto) 0.5 Neut # (Auto) 11.9 H Lymph # (Auto) 1.5 Sully # (Auto) 1.9 H Eos # (Auto) 0.4 Baso # (Auto) 0.1 Neutrophils % (Manual) 72 Band Neutrophils % 2 Lymphocytes % (Manual) 8 L Monocytes % (Manual) 12 H Eosinophils % (Manual) 6 Platelet Estimate Normal RBC Morphology Normal PT INR APTT pO2 25 L VBG pH 7.41 VBG pCO2 49 VBG HCO3 27.7 VBG Total CO2 32.6 H VBG O2 Sat (Calc) 46.6 VBG Base Excess 5.3 H VBG Potassium 4.0 Glucose 101 Lactate 2.5 H FiO2 21.0 Crit Value Called To lisseth Boyer md Crit Value Called By vamshi Crit Value Read Back Y Blood Gas Notified Time 1999 Sodium 135.0 Potassium Chloride 100.0 Carbon Dioxide Anion Gap BUN Creatinine Est GFR ( Amer) Est GFR (Non-Af Amer) Random Glucose Calcium Phosphorus Magnesium Total Bilirubin AST ALT Alkaline Phosphatase Total Protein Albumin Globulin Albumin/Globulin Ratio Venous Blood Potassium 4.0 Urine Color Yellow Urine Clarity Cloudy Urine pH 6.0 Ur Specific [place] 1.015 Urine Protein 100 Urine Glucose (UA) 50 Urine Ketones Negative Urine Blood Small Urine Nitrate Positive H Urine Bilirubin Negative Urine Urobilinogen 0.2-1.0 Ur Leukocyte Esterase Large Urine RBC (Auto) 5 H Urine Microscopic WBC 159 H Urine Bacteria Many H 03/06/18 04:20 WBC RBC Hgb Hct MCV MCH MCHC RDW Plt Count MPV Neut % (Auto) Lymph % (Auto) Sully % (Auto) Eos % (Auto) Baso % (Auto) Neut # (Auto) Lymph # (Auto) Sully # (Auto) Eos # (Auto) Baso # (Auto) Neutrophils % (Manual) Band Neutrophils % Lymphocytes % (Manual) Monocytes % (Manual) Eosinophils % (Manual) Platelet Estimate RBC Morphology PT INR APTT pO2 VBG pH VBG pCO2 VBG HCO3 VBG Total CO2 VBG O2 Sat (Calc) VBG Base Excess VBG Potassium Glucose Lactate FiO2 Crit Value Called To Crit Value Called By Crit Value Read Back Blood Gas Notified Time Sodium 140 Potassium 4.0 Chloride 105 Carbon Dioxide 25 Anion Gap 14 BUN 11 Creatinine 0.6 L Est GFR ( Amer) > 60 Est GFR (Non-Af Amer) > 60 Random Glucose 104 Calcium 8.7 Phosphorus Magnesium Total Bilirubin AST ALT Alkaline Phosphatase Total Protein Albumin Globulin Albumin/Globulin Ratio Venous Blood Potassium Urine Color Urine Clarity Urine pH Ur Specific [place] Urine Protein Urine Glucose (UA) Urine Ketones Urine Blood Urine Nitrate Urine Bilirubin Urine Urobilinogen Ur Leukocyte Esterase Urine RBC (Auto) Urine Microscopic WBC Urine Bacteria Assessment & Plan (1) Sepsis Status: Acute (2) UTI (urinary tract infection) Status: Acute - Assessment and Plan (Free Text) Assessment: cont iv zosyn for now await cultures consider re-eval may need 14 days IV antibiotics
--- NOTE | 2018-03-06 13:10 | CP.PCM.HP ---
History of Present Illness - History of Present Illness History of Present Illness: 52 yo male with past medical hx Dementia, Depression, Deep Vein Thrombosis, Kidney Stones, 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 A UA reveled UTI. Patient has hx of status epilepticus and sepsis with recurrent UTI. At present confuse. Present on Admission - Present on Admission Any Indicators Present on Admission: No Review of Systems - Constitutional Constitutional: As Per HPI - EENT Eyes: As Per HPI - Cardiovascular Cardiovascular: As Per HPI - Respiratory Respiratory: As Per HPI - Gastrointestinal Gastrointestinal: As Per HPI - Genitourinary Genitourinary: As Per HPI - Musculoskeletal Musculoskeletal: As Per HPI - Integumentary Integumentary: As Per HPI - Neurological Neurological: Convulsions, Focal Weakness, Paresthesias, Sensory Deficit, Weakness - Psychiatric Psychiatric: As Per HPI - Endocrine Endocrine: As Per HPI Past Patient History - Infectious Disease Hx of Infectious Diseases: None - Tetanus Immunizations Tetanus Immunization: Unknown - Past Medical History & Family History Past Medical History?: Yes - Past Social History Smoking Status: Unknown If Ever Smoked - CARDIAC Hx Hypercholesterolemia: Yes Hx Hypertension: Yes Hx Peripheral Edema: Yes (B/L LE no longer swollen) - PULMONARY Hx Chronic Obstructive Pulmonary Disease (COPD): Yes Hx Pneumonia: Yes Hx Pulmonary Embolism: Yes (hx of DVT) - NEUROLOGICAL Hx Dementia: Yes Hx Multiple Sclerosis: Yes Hx Seizures: Yes - HEENT Hx HEENT Problems: Yes (Poor vision, L eye) - RENAL Hx Chronic Kidney Disease: Yes Hx Kidney Stones: Yes (x3 years ago) - ENDOCRINE/METABOLIC Hx Endocrine Disorders: No - HEMATOLOGICAL/ONCOLOGICAL Hx AIDS: No Hx Anemia: Yes Hx Human Immunodeficiency Virus (HIV): No - INTEGUMENTARY Hx Dermatological Problems: No - MUSCULOSKELETAL/RHEUMATOLOGICAL Hx Arthritis: Yes (BACK) Hx Falls: No - GASTROINTESTINAL Hx Gastrointestinal Disorders: Yes Hx Constipation: Yes - GENITOURINARY/GYNECOLOGICAL Hx Genitourinary Disorders: Yes Hx Incontinence: Yes Hx Urinary Tract Infection: Yes (Recurrent) - PSYCHIATRIC Hx Anxiety: Yes Hx Depression: Yes Hx Substance Use: No - SURGICAL HISTORY Hx Surgeries: Yes Other/Comment: cysto with removal of stent 05/19/16- kidney stones - ANESTHESIA Hx Anesthesia: Yes Hx Anesthesia Reactions: No Hx Malignant Hyperthermia: No Meds Allergies/Adverse Reactions: Allergies Allergy/AdvReac Type Severity Reaction Status Date / Time cefazolin Allergy RASH, Verified 03/05/18 18:37 ITCHINESS Physical Exam - Constitutional Appears: Confused, Chronically Ill - Head Exam Head Exam: ATRAUMATIC, NORMAL INSPECTION, NORMOCEPHALIC - Eye Exam Eye Exam: Normal appearance - ENT Exam ENT Exam: Mucous Membranes Dry - Neck Exam Neck exam: Positive for: Normal Inspection - Respiratory Exam Respiratory Exam: Decreased Breath Sounds - Cardiovascular Exam Cardiovascular Exam: REGULAR RHYTHM, +S1, +S2 - GI/Abdominal Exam GI & Abdominal Exam: Normal Bowel Sounds - Neurological Exam Neurological exam: Altered Additional comments: severe motor and sensory deficit. - Psychiatric Exam Psychiatric exam: Anxious - Skin Skin Exam: Normal Color Results - Vital Signs Recent Vital Signs: Last Vital Signs Temp 99.1 F 03/06/18 12:19 Pulse 108 H 03/06/18 12:19 Resp 18 03/06/18 12:19 BP 105/64 03/06/18 12:19 Pulse Ox 97 03/06/18 12:19 - Labs Result Diagrams: 03/06/18 04:20 03/06/18 04:20 Labs: Laboratory Results - last 24 hr 03/05/18 03/05/18 03/05/18 19:35 19:35 19:35 WBC 21.5 H D RBC 4.97 Hgb 14.9 D Hct 45.6 MCV 91.9 D MCH 29.9 MCHC 32.6 L RDW 14.2 Plt Count 300 MPV 7.5 Neut % (Auto) 71.0 Lymph % (Auto) 14.0 L Rains % (Auto) 13.0 H Eos % (Auto) 1.7 Baso % (Auto) 0.3 Neut # (Auto) 15.3 H Lymph # (Auto) 3.0 Rains # (Auto) 2.8 H Eos # (Auto) 0.4 Baso # (Auto) 0.1 Neutrophils % (Manual) Band Neutrophils % Lymphocytes % (Manual) Monocytes % (Manual) Eosinophils % (Manual) Platelet Estimate RBC Morphology PT 13.3 H INR 1.2 APTT 29.8 pO2 VBG pH VBG pCO2 VBG HCO3 VBG Total CO2 VBG O2 Sat (Calc) VBG Base Excess VBG Potassium Glucose Lactate FiO2 Crit Value Called To Crit Value Called By Crit Value Read Back Blood Gas Notified Time Sodium 137 Potassium 4.2 Chloride 101 Carbon Dioxide 24 Anion Gap 16 BUN 11 Creatinine 0.6 L Est GFR ( Amer) > 60 Est GFR (Non-Af Amer) > 60 Random Glucose 99 Calcium 9.2 Phosphorus 2.8 Magnesium 1.7 Total Bilirubin 0.6 AST 17 ALT 22 Alkaline Phosphatase 102 Total Protein 7.2 Albumin 4.0 Globulin 3.2 Albumin/Globulin Ratio 1.3 Venous Blood Potassium Urine Color Urine Clarity Urine pH Ur Specific [place] Urine Protein Urine Glucose (UA) Urine Ketones Urine Blood Urine Nitrate Urine Bilirubin Urine Urobilinogen Ur Leukocyte Esterase Urine RBC (Auto) Urine Microscopic WBC Urine Bacteria 03/05/18 03/05/18 03/06/18 19:51 20:37 04:20 WBC 15.7 H RBC 4.51 Hgb 13.9 Hct 41.3 MCV 91.7 MCH 30.9 MCHC 33.7 RDW 14.3 Plt Count 269 MPV 7.4 Neut % (Auto) 75.5 H Lymph % (Auto) 9.6 L Rains % (Auto) 11.9 H Eos % (Auto) 2.5 Baso % (Auto) 0.5 Neut # (Auto) 11.9 H Lymph # (Auto) 1.5 Rains # (Auto) 1.9 H Eos # (Auto) 0.4 Baso # (Auto) 0.1 Neutrophils % (Manual) 72 Band Neutrophils % 2 Lymphocytes % (Manual) 8 L Monocytes % (Manual) 12 H Eosinophils % (Manual) 6 Platelet Estimate Normal RBC Morphology Normal PT INR APTT pO2 25 L VBG pH 7.41 VBG pCO2 49 VBG HCO3 27.7 VBG Total CO2 32.6 H VBG O2 Sat (Calc) 46.6 VBG Base Excess 5.3 H VBG Potassium 4.0 Glucose 101 Lactate 2.5 H FiO2 21.0 Crit Value Called To lisseth Boyer md Crit Value Called By Mary Ann bonds Crit Value Read Back Y Blood Gas Notified Time 1999 Sodium 135.0 Potassium Chloride 100.0 Carbon Dioxide Anion Gap BUN Creatinine Est GFR ( Amer) Est GFR (Non-Af Amer) Random Glucose Calcium Phosphorus Magnesium Total Bilirubin AST ALT Alkaline Phosphatase Total Protein Albumin Globulin Albumin/Globulin Ratio Venous Blood Potassium 4.0 Urine Color Yellow Urine Clarity Cloudy Urine pH 6.0 Ur Specific [place] 1.015 Urine Protein 100 Urine Glucose (UA) 50 Urine Ketones Negative Urine Blood Small Urine Nitrate Positive H Urine Bilirubin Negative Urine Urobilinogen 0.2-1.0 Ur Leukocyte Esterase Large Urine RBC (Auto) 5 H Urine Microscopic WBC 159 H Urine Bacteria Many H 03/06/18 04:20 WBC RBC Hgb Hct MCV MCH MCHC RDW Plt Count MPV Neut % (Auto) Lymph % (Auto) Rains % (Auto) Eos % (Auto) Baso % (Auto) Neut # (Auto) Lymph # (Auto) Rains # (Auto) Eos # (Auto) Baso # (Auto) Neutrophils % (Manual) Band Neutrophils % Lymphocytes % (Manual) Monocytes % (Manual) Eosinophils % (Manual) Platelet Estimate RBC Morphology PT INR APTT pO2 VBG pH VBG pCO2 VBG HCO3 VBG Total CO2 VBG O2 Sat (Calc) VBG Base Excess VBG Potassium Glucose Lactate FiO2 Crit Value Called To Crit Value Called By Crit Value Read Back Blood Gas Notified Time Sodium 140 Potassium 4.0 Chloride 105 Carbon Dioxide 25 Anion Gap 14 BUN 11 Creatinine 0.6 L Est GFR ( Amer) > 60 Est GFR (Non-Af Amer) > 60 Random Glucose 104 Calcium 8.7 Phosphorus Magnesium Total Bilirubin AST ALT Alkaline Phosphatase Total Protein Albumin Globulin Albumin/Globulin Ratio Venous Blood Potassium Urine Color Urine Clarity Urine pH Ur Specific [place] Urine Protein Urine Glucose (UA) Urine Ketones Urine Blood Urine Nitrate Urine Bilirubin Urine Urobilinogen Ur Leukocyte Esterase Urine RBC (Auto) Urine Microscopic WBC Urine Bacteria Assessment & Plan (1) Sepsis Status: Acute (2) UTI (urinary tract infection) Status: Acute (3) Change in mental status Status: Acute Onset Date: ~02/20/17 (4) DVT prophylaxis Status: Acute (5) Delirium due to general medical condition Status: Acute (6) Fever Status: Acute Priority: Low (7) Leukocytosis Status: Acute (8) UTI (urinary tract infection) with pyuria Status: Acute Onset Date: ~02/19/17 (9) COPD (chronic obstructive pulmonary disease) Status: Chronic (10) Debility Status: Chronic (11) Depression Status: Chronic Priority: Medium (12) Multiple sclerosis Status: Chronic (13) Nephrolithiasis Status: Chronic (14) Seizure disorder Status: Chronic Priority: Medium - Assessment and Plan (Free Text) Plan: As per orders.
[2018-03-06 20:44] LABS: HEMOGLOBIN 12.3 g/dL (12.0-18.0); MEAN CELL VOLUME 91.1 fl (80.0-94.0); MEAN CORPUSCULAR HEMOGLOBIN 30.5 pg (27.0-31.0); MEAN CORPUSCULAR HGB CONC 33.5 g/dL (33.0-37.0); RBC 4.04 Mil/uL (4.40-5.90); RED CELL DISTRIBUTION WIDTH 14.2 % (11.5-14.5); WHITE BLOOD COUNT 11.1 K/uL (4.8-10.8)
[2018-03-06 21:33] LABS: ALB/GLOB RATIO 1.1 (1.0-2.1); ALBUMIN 3.3 g/dL (3.5-5.0); ALT/SGPT 23 U/L (21-72); AST/SGOT 17 U/L (17-59); BLOOD UREA NITROGEN 8 mg/dl (9-20); CALCIUM 8.7 mg/dL (8.4-10.2); GFR AFRICAN-AMERICAN > 60; GFR NON-AFRICAN AMERICAN > 60
[2018-03-07] MEDS: Piperacillin/Tazobact 3.375 GM in Sodium Chloride 0.9% 100 ML IVPB SCH ×4 (04:29→21:07)
[2018-03-07] MEDS: Sodium Chloride 0.9% 1,000 ML IV SCH ×4 (04:33→12:00)
[2018-03-07] MEDS: Fluconazole IV 200mg/100 ml NS 100 ML IVPB SCH (09:24)
[2018-03-07] MEDS: Lactobacillus Acidophilus 500 MU Cap PO SCH ×2 (09:28→17:53)
[2018-03-07] MEDS: Enoxaparin 40 mg Syringe SC SCH (09:30)
[2018-03-07] MEDS: Oxycodone/Acetaminophen 5/325 mg Tab PO PRN (09:35)
--- NOTE | 2018-03-07 11:20 | CP.PCM.PN ---
Subjective - Date & Time of Evaluation Date of Evaluation: 03/07/18 Time of Evaluation: 11:21 - Subjective Subjective: Patient was febrile with hypotension. Add vanco and he receded a fluid challenge 0f 200 cc/hr of NS. His condition improving. Still in delirium. Culture positive for neg rods. Objective - Vital Signs/Intake and Output Vital Signs (last 24 hours): Temp Pulse Resp BP Pulse Ox 98.3 F 97 H 18 107/62 97 03/07/18 08:03 03/07/18 08:03 03/07/18 08:03 03/07/18 08:03 03/07/18 08:03 Intake and Output: 03/06/18 03/07/18 23:59 11:59 Intake Total 3200 Output Total 1500 Balance 1700 - Medications Medications: Current Medications Acetaminophen (Tylenol 325mg Tab) 975 mg PO ONCE PRN PRN Reason: Fever >100.4 F Last Admin: 03/06/18 13:37 Dose: 975 mg Acetaminophen (Tylenol 325mg Tab) 650 mg PO Q6 PRN PRN Reason: Fever >100.4 F Last Admin: 03/06/18 19:47 Dose: 650 mg Baclofen (Lioresal) 20 mg PO TID [facility] Last Admin: 03/07/18 09:30 Dose: 20 mg Enoxaparin Sodium (Lovenox) 40 mg SC DAILY [facility] PRN Reason: Protocol Last Admin: 03/07/18 09:30 Dose: 40 mg Fentanyl (Duragesic) 1 patch TD Q3D [facility] PRN Reason: Protocol Last Admin: 03/06/18 01:37 Dose: 1 patch Home Med (Dimethyl Fumarate [Tecfidera]) 240 mg PO BID [facility] Last Admin: 03/07/18 09:29 Dose: 240 mg Piperacillin Sod/Tazobactam (Sod 3.375 gm/ Sodium Chloride) 100 mls @ 100 mls/ hr IVPB Q6 [facility] PRN Reason: Protocol Last Admin: 03/07/18 04:29 Dose: 100 mls/hr Fluconazole (Diflucan Iv 200 Mg/100 Ml Ns) 100 mls @ 100 mls/hr IVPB DAILY [facility] PRN Reason: Protocol Last Admin: 03/07/18 09:24 Dose: 100 mls/hr Vancomycin HCl 1 gm/ Sodium (Chloride) 250 mls @ 166.667 mls/hr IVPB DAILY [facility] PRN Reason: Protocol Last Admin: 03/07/18 09:30 Dose: 166.667 mls/hr Sodium Chloride (Sodium Chloride 0.9%) 1,000 mls @ 120 mls/hr IV .Q8H20M [facility] Lactobacillus Acidophilus (Bacid Acidophilus) 1 cap PO BID [facility] Last Admin: 03/06/18 17:44 Dose: 1 cap Lamotrigine (Lamictal) 200 mg PO BID [facility] Last Admin: 03/07/18 09:29 Dose: 200 mg Levetiracetam (Keppra) 2,000 mg PO BID [facility] Last Admin: 03/07/18 09:29 Dose: 2,000 mg Methenamine Hippurate (Hiprex) 1 gm PO DAILY [facility] PRN Reason: Protocol Last Admin: 03/07/18 09:29 Dose: 1 gm Oxycodone/Acetaminophen (Percocet 5/325 Mg Tab) 1 tab PO Q6 PRN PRN Reason: Pain, severe (8-10) Stop: 03/09/18 08:05 Last Admin: 03/07/18 09:35 Dose: 1 tab - Labs Labs: 03/06/18 20:26 03/06/18 20:26 PT 13.3 Seconds (9.8-13.1) H 03/05/18 19:35 INR 1.2 03/05/18 19:35 APTT 29.8 Seconds (25.6-37.1) 03/05/18 19:35 - Constitutional Appears: Confused, Chronically Ill - Head Exam Head Exam: ATRAUMATIC, NORMAL INSPECTION, NORMOCEPHALIC - Eye Exam Eye Exam: Normal appearance - ENT Exam ENT Exam: Mucous Membranes Moist - Neck Exam Neck Exam: Full ROM - Respiratory Exam Respiratory Exam: Decreased Breath Sounds - Cardiovascular Exam Cardiovascular Exam: REGULAR RHYTHM, +S1, +S2 - GI/Abdominal Exam GI & Abdominal Exam: Normal Bowel Sounds - Extremities Exam Extremities Exam: Normal Inspection - Neurological Exam Neurological Exam: Alert, Awake - Psychiatric Exam Psychiatric exam: Anxious - Skin Skin Exam: Normal Color Assessment and Plan (1) Sepsis Status: Acute (2) UTI (urinary tract infection) Status: Acute (3) Change in mental status Status: Acute (4) DVT prophylaxis Status: Acute (5) Delirium due to general medical condition Status: Acute (6) Fever Status: Acute (7) Leukocytosis Status: Acute (8) UTI (urinary tract infection) with pyuria Status: Acute (9) COPD (chronic obstructive pulmonary disease) Status: Chronic (10) Debility Status: Chronic (11) Depression Status: Chronic (12) Multiple sclerosis Status: Chronic (13) Nephrolithiasis Status: Chronic (14) Seizure disorder Status: Chronic - Assessment and Plan (Free Text) Plan: Continue present rx. Monitor electrolytes and vitals.
--- NOTE | 2018-03-07 12:10 | RAD ---
Date of service: 03/07/2018 PROCEDURE: CHEST RADIOGRAPH, 1 VIEW HISTORY: pulmonary congestion COMPARISON: None available. FINDINGS: LUNGS: Clear. PLEURA: No pneumothorax or pleural fluid seen. CARDIOVASCULAR: No radiographic findings to suggest acute or significant cardiovascular disease. OSSEOUS STRUCTURES: No significant abnormalities. VISUALIZED UPPER ABDOMEN: Normal. OTHER FINDINGS: None. IMPRESSION: No active disease. No acute/significant interval changes.
[2018-03-07 13:08] LABS: BASO # 0.1 K/uL (0.0-0.2); BASO % 0.5 % (0.0-2.0); EOS # 0.4 K/uL (0.0-0.7); HEMOGLOBIN 11.8 g/dL (12.0-18.0); LYMPH # 1.8 K/uL (1.0-4.3); LYMPH % 18.2 % (20.0-40.0); MEAN CELL VOLUME 90.7 fl (80.0-94.0); MEAN CORPUSCULAR HEMOGLOBIN 30.3 pg (27.0-31.0); MEAN CORPUSCULAR HGB CONC 33.4 g/dL (33.0-37.0); MEAN PLATELET VOLUME 7.3 fl (7.2-11.7); MONO # 1.2 K/uL (0.0-0.8); MONO % 12.7 % (0.0-10.0); NEUT # 6.2 K/uL (1.8-7.0); NEUT % 64.6 % (50.0-75.0); RBC 3.89 Mil/uL (4.40-5.90); RED CELL DISTRIBUTION WIDTH 14.1 % (11.5-14.5); WHITE BLOOD COUNT 9.7 K/uL (4.8-10.8)
[2018-03-07 13:45] LABS: BLOOD UREA NITROGEN 5 mg/dl (9-20); CALCIUM 8.1 mg/dL (8.4-10.2); GFR AFRICAN-AMERICAN > 60; GFR NON-AFRICAN AMERICAN > 60
--- NOTE | 2018-03-07 19:08 | CP.PCM.PN ---
Subjective - Date & Time of Evaluation Date of Evaluation: 03/07/18 Time of Evaluation: 10:00 - Subjective Subjective: t max down appears more comfortable Objective - Vital Signs/Intake and Output Vital Signs (last 24 hours): Temp Pulse Resp BP Pulse Ox 98.5 F 77 20 95/66 L 95 03/07/18 15:49 03/07/18 15:49 03/07/18 15:49 03/07/18 15:49 03/07/18 15:49 - Medications Medications: Current Medications Acetaminophen (Tylenol 325mg Tab) 975 mg PO ONCE PRN PRN Reason: Fever >100.4 F Last Admin: 03/06/18 13:37 Dose: 975 mg Acetaminophen (Tylenol 325mg Tab) 650 mg PO Q6 PRN PRN Reason: Fever >100.4 F Last Admin: 03/06/18 19:47 Dose: 650 mg Baclofen (Lioresal) 20 mg PO TID [facility] Last Admin: 03/07/18 17:48 Dose: 20 mg Enoxaparin Sodium (Lovenox) 40 mg SC DAILY [facility] PRN Reason: Protocol Last Admin: 03/07/18 09:30 Dose: 40 mg Fentanyl (Duragesic) 1 patch TD Q3D [facility] PRN Reason: Protocol Last Admin: 03/06/18 01:37 Dose: 1 patch Home Med (Dimethyl Fumarate [Tecfidera]) 240 mg PO BID [facility] Last Admin: 03/07/18 17:49 Dose: 240 mg Piperacillin Sod/Tazobactam (Sod 3.375 gm/ Sodium Chloride) 100 mls @ 100 mls/ hr IVPB Q6 [facility] PRN Reason: Protocol Last Admin: 03/07/18 18:09 Dose: 100 mls/hr Fluconazole (Diflucan Iv 200 Mg/100 Ml Ns) 100 mls @ 100 mls/hr IVPB DAILY [facility] PRN Reason: Protocol Last Admin: 03/07/18 09:24 Dose: 100 mls/hr Vancomycin HCl 1 gm/ Sodium (Chloride) 250 mls @ 166.667 mls/hr IVPB DAILY [facility] PRN Reason: Protocol Last Admin: 03/07/18 09:30 Dose: 166.667 mls/hr Sodium Chloride (Sodium Chloride 0.9%) 1,000 mls @ 120 mls/hr IV .Q8H20M [facility] Last Admin: 03/07/18 12:00 Dose: 120 mls/hr Lactobacillus Acidophilus (Bacid Acidophilus) 1 cap PO BID [facility] Last Admin: 03/07/18 17:53 Dose: 1 cap Lamotrigine (Lamictal) 200 mg PO BID [facility] Last Admin: 03/07/18 17:48 Dose: 200 mg Levetiracetam (Keppra) 2,000 mg PO BID [facility] Last Admin: 03/07/18 17:48 Dose: 2,000 mg Lidocaine HCl (Lidocaine 2% Viscous) 15 ml PO Q6 PRN PRN Reason: Other Last Admin: 03/07/18 15:03 Dose: 15 ml Methenamine Hippurate (Hiprex) 1 gm PO DAILY [facility] PRN Reason: Protocol Last Admin: 03/07/18 09:29 Dose: 1 gm Oxycodone/Acetaminophen (Percocet 5/325 Mg Tab) 1 tab PO Q6 PRN PRN Reason: Pain, severe (8-10) Stop: 03/09/18 08:05 Last Admin: 03/07/18 09:35 Dose: 1 tab - Labs Labs: 03/07/18 13:04 03/07/18 13:04 PT 13.3 Seconds (9.8-13.1) H 03/05/18 19:35 INR 1.2 03/05/18 19:35 APTT 29.8 Seconds (25.6-37.1) 03/05/18 19:35 - Constitutional Appears: Non-toxic, Chronically Ill - Head Exam Head Exam: NORMOCEPHALIC - Eye Exam Eye Exam: absent: Scleral icterus - ENT Exam ENT Exam: Mucous Membranes Dry - Neck Exam Neck Exam: absent: Lymphadenopathy - Respiratory Exam Respiratory Exam: Decreased Breath Sounds, Clear to Ausculation Bilateral - Cardiovascular Exam Cardiovascular Exam: REGULAR RHYTHM, +S1, +S2 - GI/Abdominal Exam GI & Abdominal Exam: Distended, Soft. absent: Tenderness - Rectal Exam Rectal Exam: Deferred - Exam Exam: NORMAL INSPECTION - Extremities Exam Extremities Exam: absent: Pedal Edema - Back Exam Back Exam: absent: CVA tenderness (L), CVA tenderness (R) - Neurological Exam Neurological Exam: Alert, Awake, Oriented x3 - Psychiatric Exam Psychiatric exam: Normal Mood - Skin Skin Exam: Dry Assessment and Plan (1) Sepsis Status: Acute (2) UTI (urinary tract infection) Status: Acute - Assessment and Plan (Free Text) Assessment: cont iv rx for now may need 10-14 days rx
[2018-03-08] MEDS: Oxycodone/Acetaminophen 5/325 mg Tab PO PRN ×3 (02:25→22:05)
[2018-03-08] MEDS: Sodium Chloride 0.9% 1,000 ML IV SCH (02:26)
[2018-03-08] MEDS: Piperacillin/Tazobact 3.375 GM in Sodium Chloride 0.9% 100 ML IVPB SCH (04:51)
[2018-03-08] MEDS: Lactobacillus Acidophilus 500 MU Cap PO SCH ×2 (08:49→16:39)
[2018-03-08] MEDS: Enoxaparin 40 mg Syringe SC SCH (08:50)
[2018-03-08] MEDS: Fluconazole IV 200mg/100 ml NS 100 ML IVPB SCH (08:53)
[2018-03-08] MEDS ORDERED: cefTRIAXone 1 GM in Sodium Chloride 0.9% 100 ML IVPB SCH (09:00)
[2018-03-08] MEDS ORDERED: cefTRIAXone 2 GM in Sodium Chloride 0.9% 100 ML IVPB SCH (09:00)
[2018-03-08 10:06] LABS: BASO % 0.6 % (0.0-2.0); EOS # 0.4 K/uL (0.0-0.7); EOS % 7.1 % (0.0-4.0); HEMOGLOBIN 12.3 g/dL (12.0-18.0); LYMPH # 1.6 K/uL (1.0-4.3); LYMPH % 28.4 % (20.0-40.0); MEAN CELL VOLUME 91.6 fl (80.0-94.0); MEAN CORPUSCULAR HEMOGLOBIN 30.6 pg (27.0-31.0); MEAN CORPUSCULAR HGB CONC 33.4 g/dL (33.0-37.0); MEAN PLATELET VOLUME 6.8 fl (7.2-11.7); MONO # 0.5 K/uL (0.0-0.8); MONO % 8.9 % (0.0-10.0); NRBC % 0.1 % (0.0-0.0); RBC 4.02 Mil/uL (4.40-5.90); RED CELL DISTRIBUTION WIDTH 14.2 % (11.5-14.5); WHITE BLOOD COUNT 5.5 K/uL (4.8-10.8)
[2018-03-08 10:22] LABS: BLOOD UREA NITROGEN 3 mg/dl (9-20); CALCIUM 8.1 mg/dL (8.4-10.2); GFR AFRICAN-AMERICAN > 60; GFR NON-AFRICAN AMERICAN > 60
[2018-03-08] MEDS: Meropenem 1 GM in Sodium Chloride 0.9% 100 ML IVPB SCH ×2 (10:38→16:39)
[2018-03-08] MEDS ORDERED: Potassium Chloride 20 mEq ER Tab PO ONE (11:31)
--- NOTE | 2018-03-08 11:34 | CP.PCM.PN ---
Subjective - Date & Time of Evaluation Date of Evaluation: 03/08/18 Time of Evaluation: 11:34 - Subjective Subjective: Patient improving well on present rx If stable will dc to snf for antibx rx in am Objective - Vital Signs/Intake and Output Vital Signs (last 24 hours): Temp Pulse Resp BP Pulse Ox 98.5 F 92 H 18 99/63 L 96 03/08/18 07:54 03/08/18 09:00 03/08/18 07:54 03/08/18 07:54 03/08/18 07:54 Intake and Output: 03/07/18 03/08/18 23:59 11:59 Intake Total 1640 Output Total 1600 1400 Balance -1600 240 - Medications Medications: Current Medications Acetaminophen (Tylenol 325mg Tab) 975 mg PO ONCE PRN PRN Reason: Fever >100.4 F Last Admin: 03/06/18 13:37 Dose: 975 mg Acetaminophen (Tylenol 325mg Tab) 650 mg PO Q6 PRN PRN Reason: Fever >100.4 F Last Admin: 03/06/18 19:47 Dose: 650 mg Baclofen (Lioresal) 20 mg PO TID [facility] Last Admin: 03/08/18 08:49 Dose: 20 mg Enoxaparin Sodium (Lovenox) 40 mg SC DAILY [facility] PRN Reason: Protocol Last Admin: 03/08/18 08:50 Dose: 40 mg Fentanyl (Duragesic) 1 patch TD Q3D [facility] PRN Reason: Protocol Last Admin: 03/06/18 01:37 Dose: 1 patch Home Med (Dimethyl Fumarate [Tecfidera]) 240 mg PO BID [facility] Last Admin: 03/08/18 08:49 Dose: 240 mg Fluconazole (Diflucan Iv 200 Mg/100 Ml Ns) 100 mls @ 100 mls/hr IVPB DAILY [facility] PRN Reason: Protocol Last Admin: 03/08/18 08:53 Dose: 100 mls/hr Sodium Chloride (Sodium Chloride 0.9%) 1,000 mls @ 120 mls/hr IV .Q8H20M [facility] Last Admin: 03/08/18 02:26 Dose: 120 mls/hr Meropenem 1 gm/ Sodium (Chloride) 100 mls @ 100 mls/hr IVPB Q8 [facility] PRN Reason: Protocol Last Admin: 03/08/18 10:38 Dose: 100 mls/hr Lactobacillus Acidophilus (Bacid Acidophilus) 1 cap PO BID [facility] Last Admin: 03/08/18 08:49 Dose: 1 cap Lamotrigine (Lamictal) 200 mg PO BID [facility] Last Admin: 03/08/18 08:48 Dose: 200 mg Levetiracetam (Keppra) 2,000 mg PO BID [facility] Last Admin: 03/08/18 08:50 Dose: 2,000 mg Lidocaine HCl (Lidocaine 2% Viscous) 15 ml PO Q6 PRN PRN Reason: Other Last Admin: 03/08/18 10:00 Dose: 15 ml Methenamine Hippurate (Hiprex) 1 gm PO DAILY [facility] PRN Reason: Protocol Last Admin: 03/08/18 08:48 Dose: 1 gm Oxycodone/Acetaminophen (Percocet 5/325 Mg Tab) 1 tab PO Q6 PRN PRN Reason: Pain, severe (8-10) Stop: 03/09/18 08:05 Last Admin: 03/08/18 08:49 Dose: 1 tab Potassium Chloride (K-Dur 20 Meq Er Tab) 40 meq PO ONCE ONE Stop: 03/08/18 11:32 - Labs Labs: 03/08/18 10:02 03/08/18 10:02 PT 13.3 Seconds (9.8-13.1) H 03/05/18 19:35 INR 1.2 03/05/18 19:35 APTT 29.8 Seconds (25.6-37.1) 03/05/18 19:35 - Constitutional Appears: Confused, Chronically Ill - Head Exam Head Exam: ATRAUMATIC, NORMAL INSPECTION, NORMOCEPHALIC - Eye Exam Eye Exam: Normal appearance - ENT Exam ENT Exam: Mucous Membranes Moist - Neck Exam Neck Exam: Full ROM - Respiratory Exam Respiratory Exam: Decreased Breath Sounds - Cardiovascular Exam Cardiovascular Exam: REGULAR RHYTHM, +S1, +S2 - GI/Abdominal Exam GI & Abdominal Exam: Soft, Normal Bowel Sounds - Neurological Exam Neurological Exam: Alert, Altered, Awake - Psychiatric Exam Psychiatric exam: Anxious - Skin Skin Exam: Normal Color Assessment and Plan (1) Sepsis Status: Acute (2) UTI (urinary tract infection) Status: Acute (3) Change in mental status Status: Acute (4) DVT prophylaxis Status: Acute (5) Delirium due to general medical condition Status: Acute (6) Fever Status: Acute (7) Leukocytosis Status: Acute (8) UTI (urinary tract infection) with pyuria Status: Acute (9) COPD (chronic obstructive pulmonary disease) Status: Chronic (10) Debility Status: Chronic (11) Depression Status: Chronic (12) Multiple sclerosis Status: Chronic (13) Nephrolithiasis Status: Chronic (14) Seizure disorder Status: Chronic - Assessment and Plan (Free Text) Plan: As above.
--- NOTE | 2018-03-08 20:00 | CP.PCM.PN ---
Subjective - Date & Time of Evaluation Date of Evaluation: 03/08/18 Time of Evaluation: 09:00 - Subjective Subjective: improving less confused no fever for SNF in am Objective - Vital Signs/Intake and Output Vital Signs (last 24 hours): Temp Pulse Resp BP Pulse Ox 98.3 F 94 H 18 100/66 97 03/08/18 15:40 03/08/18 15:40 03/08/18 15:40 03/08/18 15:40 03/08/18 15:40 Intake and Output: 03/08/18 03/09/18 18:59 06:59 Intake Total 1640 Output Total 1400 Balance 240 - Medications Medications: Current Medications Acetaminophen (Tylenol 325mg Tab) 975 mg PO ONCE PRN PRN Reason: Fever >100.4 F Last Admin: 03/06/18 13:37 Dose: 975 mg Acetaminophen (Tylenol 325mg Tab) 650 mg PO Q6 PRN PRN Reason: Fever >100.4 F Last Admin: 03/06/18 19:47 Dose: 650 mg Baclofen (Lioresal) 20 mg PO TID [facility] Last Admin: 03/08/18 16:39 Dose: 20 mg Enoxaparin Sodium (Lovenox) 40 mg SC DAILY [facility] PRN Reason: Protocol Last Admin: 03/08/18 08:50 Dose: 40 mg Fentanyl (Duragesic) 1 patch TD Q3D [facility] PRN Reason: Protocol Last Admin: 03/06/18 01:37 Dose: 1 patch Home Med (Dimethyl Fumarate [Tecfidera]) 240 mg PO BID [facility] Last Admin: 03/08/18 16:37 Dose: 240 mg Fluconazole (Diflucan Iv 200 Mg/100 Ml Ns) 100 mls @ 100 mls/hr IVPB DAILY [facility] PRN Reason: Protocol Last Admin: 03/08/18 08:53 Dose: 100 mls/hr Meropenem 1 gm/ Sodium (Chloride) 100 mls @ 100 mls/hr IVPB Q8 [facility] PRN Reason: Protocol Last Admin: 03/08/18 16:39 Dose: 100 mls/hr Lactobacillus Acidophilus (Bacid Acidophilus) 1 cap PO BID [facility] Last Admin: 03/08/18 16:39 Dose: 1 cap Lamotrigine (Lamictal) 200 mg PO BID [facility] Last Admin: 03/08/18 16:37 Dose: 200 mg Levetiracetam (Keppra) 2,000 mg PO BID [facility] Last Admin: 03/08/18 16:37 Dose: 2,000 mg Lidocaine HCl (Lidocaine 2% Viscous) 15 ml PO Q6 PRN PRN Reason: Other Last Admin: 03/08/18 16:36 Dose: 15 ml Methenamine Hippurate (Hiprex) 1 gm PO DAILY [facility] PRN Reason: Protocol Last Admin: 03/08/18 08:48 Dose: 1 gm Oxycodone/Acetaminophen (Percocet 5/325 Mg Tab) 1 tab PO Q6 PRN PRN Reason: Pain, severe (8-10) Stop: 03/09/18 08:05 Last Admin: 03/08/18 08:49 Dose: 1 tab - Labs Labs: 03/08/18 10:02 03/08/18 10:02 PT 13.3 Seconds (9.8-13.1) H 03/05/18 19:35 INR 1.2 03/05/18 19:35 APTT 29.8 Seconds (25.6-37.1) 03/05/18 19:35 - Constitutional Appears: Non-toxic, Chronically Ill - Head Exam Head Exam: NORMOCEPHALIC - Eye Exam Eye Exam: PERRL - ENT Exam ENT Exam: Mucous Membranes Dry - Neck Exam Neck Exam: absent: Lymphadenopathy - Respiratory Exam Respiratory Exam: Decreased Breath Sounds - Cardiovascular Exam Cardiovascular Exam: REGULAR RHYTHM - GI/Abdominal Exam GI & Abdominal Exam: Distended - Rectal Exam Rectal Exam: NORMAL INSPECTION - Exam Exam: absent: NORMAL INSPECTION - Extremities Exam Extremities Exam: absent: Pedal Edema - Back Exam Back Exam: absent: CVA tenderness (L), CVA tenderness (R) - Neurological Exam Neurological Exam: Alert, Altered, Awake, CN II-XII Intact, Motor Sensory Deficit. absent: Normal Gait - Psychiatric Exam Psychiatric exam: Depressed Assessment and Plan (1) Sepsis Status: Acute (2) UTI (urinary tract infection) Status: Acute - Assessment and Plan (Free Text) Assessment: cont rx for klebsiella infection with iv rx for 10-14 days
[2018-03-09] MEDS: Meropenem 1 GM in Sodium Chloride 0.9% 100 ML IVPB SCH ×2 (01:33→08:40)
[2018-03-09] MEDS: Oxycodone/Acetaminophen 5/325 mg Tab PO PRN (03:43)
--- NOTE | 2018-03-09 07:42 | CP.PCM.DIS ---
Provider - Provider Date of Admission: 03/05/18 20:43 Attending physician: Leo Morris MD Time Spent in preparation of Discharge (in minutes): 30 Diagnosis - Discharge Diagnosis (1) Sepsis Status: Acute (2) UTI (urinary tract infection) Status: Acute (3) Change in mental status Status: Acute Onset Date: ~02/20/17 (4) DVT prophylaxis Status: Acute (5) Delirium due to general medical condition Status: Acute (6) Fever Status: Acute Priority: Low (7) Leukocytosis Status: Acute (8) UTI (urinary tract infection) with pyuria Status: Acute Onset Date: ~02/19/17 (9) COPD (chronic obstructive pulmonary disease) Status: Chronic (10) Debility Status: Chronic (11) Depression Status: Chronic Priority: Medium (12) Multiple sclerosis Status: Chronic (13) Nephrolithiasis Status: Chronic (14) Seizure disorder Status: Chronic Priority: Medium Hospital Course - Lab Results Lab Results: Micro Results 03/05/18 19:35 Blood Blood Culture - Preliminary NO GROWTH AFTER 3 DAYS 03/05/18 20:37 Urine,Catheterized Urine Culture - Final Klebsiella Pneumoniae Ssp Pneu Most Recent Lab Values WBC 5.5 K/uL (4.8-10.8) 03/08/18 10:02 RBC 4.02 Mil/uL (4.40-5.90) L 03/08/18 10:02 Hgb 12.3 g/dL (12.0-18.0) 03/08/18 10:02 Hct 36.8 % (35.0-51.0) 03/08/18 10:02 MCV 91.6 fl (80.0-94.0) 03/08/18 10:02 MCH 30.6 pg (27.0-31.0) 03/08/18 10:02 MCHC 33.4 g/dL (33.0-37.0) 03/08/18 10:02 RDW 14.2 % (11.5-14.5) 03/08/18 10:02 Plt Count 272 K/uL (130-400) 03/08/18 10:02 MPV 6.8 fl (7.2-11.7) L 03/08/18 10:02 Neut % (Auto) 55.0 % (50.0-75.0) 03/08/18 10:02 Lymph % (Auto) 28.4 % (20.0-40.0) 03/08/18 10:02 [place] % (Auto) 8.9 % (0.0-10.0) 03/08/18 10:02 Eos % (Auto) 7.1 % (0.0-4.0) H 03/08/18 10:02 Baso % (Auto) 0.6 % (0.0-2.0) 03/08/18 10:02 Neut # (Auto) 3.0 K/uL (1.8-7.0) 03/08/18 10:02 Lymph # (Auto) 1.6 K/uL (1.0-4.3) 03/08/18 10:02 [place] # (Auto) 0.5 K/uL (0.0-0.8) 03/08/18 10:02 Eos # (Auto) 0.4 K/uL (0.0-0.7) 03/08/18 10:02 Baso # (Auto) 0.0 K/uL (0.0-0.2) 03/08/18 10:02 Neutrophils % (Manual) 72 % (42-75) 03/06/18 04:20 Band Neutrophils % 2 % (0-2) 03/06/18 04:20 Lymphocytes % (Manual) 8 % (20-50) L 03/06/18 04:20 Monocytes % (Manual) 12 % (0-10) H 03/06/18 04:20 Eosinophils % (Manual) 6 % (0-7) 03/06/18 04:20 Platelet Estimate Normal (NORMAL) 03/06/18 04:20 RBC Morphology Normal (NORMAL) 03/06/18 04:20 PT 13.3 Seconds (9.8-13.1) H 03/05/18 19:35 INR 1.2 03/05/18 19:35 APTT 29.8 Seconds (25.6-37.1) 03/05/18 19:35 pO2 25 mm/Hg (30-55) L 03/05/18 19:51 VBG pH 7.41 (7.32-7.43) 03/05/18 19:51 VBG pCO2 49 mmHg (40-60) 03/05/18 19:51 VBG HCO3 27.7 mmol/L 03/05/18 19:51 VBG Total CO2 32.6 mmol/L (22-28) H 03/05/18 19:51 VBG O2 Sat (Calc) 46.6 % (40-65) 03/05/18 19:51 VBG Base Excess 5.3 mmol/L (0.0-2.0) H 03/05/18 19:51 VBG Potassium 4.0 mmol/L (3.6-5.2) 03/05/18 19:51 Sodium 135.0 mmol/L (132-148) 03/05/18 19:51 Chloride 100.0 mmol/L (98-107) 03/05/18 19:51 Glucose 101 mg/dL (75-110) 03/05/18 19:51 Lactate 2.5 mmol/L (0.7-2.1) H 03/05/18 19:51 FiO2 21.0 % 03/05/18 19:51 Crit Value Called To lisseth Boyer md 03/05/18 19:51 Crit Value Called By Mary Ann bonds 03/05/18 19:51 Crit Value Read Back Y 03/05/18 19:51 Blood Gas Notified Time 199903/05/18 19:51 Sodium 141 mmol/l (132-148) 03/08/18 10:02 Potassium 3.5 MMOL/L (3.6-5.0) L 03/08/18 10:02 Chloride 109 mmol/L (98-107) H 03/08/18 10:02 Carbon Dioxide 24 mmol/L (22-30) 03/08/18 10:02 Anion Gap 12 (10-20) 03/08/18 10:02 BUN 3 mg/dl (9-20) L 03/08/18 10:02 Creatinine 0.5 mg/dl (0.8-1.5) L 03/08/18 10:02 Est GFR ( Amer) > 60 03/08/18 10:02 Est GFR (Non-Af Amer) > 60 03/08/18 10:02 POC Glucose (mg/dL) 171 mg/dL (65-110) H 03/08/18 11:02 Random Glucose 138 mg/dL (75-110) H 03/08/18 10:02 Lactic Acid 1.1 MMOL/L (0.7-2.1) 03/06/18 20:26 Calcium 8.1 mg/dL (8.4-10.2) L 03/08/18 10:02 Phosphorus 2.8 mg/dl (2.5-4.5) 03/05/18 19:35 Magnesium 1.7 MG/DL (1.6-2.3) 03/05/18 19:35 Total Bilirubin 0.6 mg/dl (0.2-1.3) 03/06/18 20:26 AST 17 U/L (17-59) 03/06/18 20:26 ALT 23 U/L (21-72) 03/06/18 20:26 Alkaline Phosphatase 82 U/L (38-126) 03/06/18 20:26 Total Protein 6.3 G/DL (6.3-8.2) 03/06/18 20:26 Albumin 3.3 g/dL (3.5-5.0) L 03/06/18 20:26 Globulin 2.9 gm/dL (2.2-3.9) 03/06/18 20:26 Albumin/Globulin Ratio 1.1 (1.0-2.1) 03/06/18 20:26 Venous Blood Potassium 4.0 mmol/L (3.6-5.2) 03/05/18 19:51 Urine Color Yellow (YELLOW) 03/05/18 20:37 Urine Clarity Cloudy (Clear) 03/05/18 20:37 Urine pH 6.0 (5.0-8.0) 03/05/18 20:37 Ur Specific [place] 1.015 (1.003-1.030) 03/05/18 20:37 Urine Protein 100 mg/dL (NEGATIVE) 03/05/18 20:37 Urine Glucose (UA) 50 mg/dL (Normal) 03/05/18 20:37 Urine Ketones Negative mg/dL (NEGATIVE) 03/05/18 20:37 Urine Blood Small (NEGATIVE) 03/05/18 20:37 Urine Nitrate Positive (NEGATIVE) H 03/05/18 20:37 Urine Bilirubin Negative (NEGATIVE) 03/05/18 20:37 Urine Urobilinogen 0.2-1.0 mg/dL (0.2-1.0) 03/05/18 20:37 Ur Leukocyte Esterase Large [place]/uL (Negative) 03/05/18 20:37 Urine RBC (Auto) 5 /hpf (0-3) H 03/05/18 20:37 Urine Microscopic WBC 159 /hpf (0-5) H 03/05/18 20:37 Urine Bacteria Many (<OCC) H 03/05/18 20:37 - Hospital Course Hospital Course: 52 yo male with past medical hx Dementia, Depression, Deep Vein Thrombosis, Kidney Stones, 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 A UA reveled UTI. Patient has hx of status epilepticus and sepsis with recurrent UTI. Patient well responded to rx. Will continue antbx in snf x 6 days. Discharge Exam - Head Exam Head Exam: NORMOCEPHALIC - Eye Exam Eye Exam: Normal appearance - ENT Exam ENT Exam: Mucous Membranes Moist - Neck Exam Neck exam: Full Rom - Respiratory Exam Respiratory Exam: Clear to PA & Lateral - Cardiovascular Exam Cardiovascular Exam: REGULAR RHYTHM, +S1, +S2 - GI/Abdominal Exam GI & Abdominal Exam: Normal Bowel Sounds - Extremities Exam Extremities exam: normal inspection - Neurological Exam Neurological exam: Alert, Altered - Psychiatric Exam Psychiatric exam: Anxious - Skin Skin Exam: Intact Discharge Plan - Discharge Medications Prescriptions: Meropenem 1 gm IV Q8 6 Days #60 pds - Follow Up Plan Condition: SERIOUS Disposition: TRANSF TO SNF
[2018-03-09] MEDS: Fluconazole IV 200mg/100 ml NS 100 ML IVPB SCH (08:41)
[2018-03-09] MEDS: Lactobacillus Acidophilus 500 MU Cap PO SCH (08:44)
[2018-03-09 09:48] VITALS: RESP 20
[2018-03-09 09:52] LABS: BLOOD UREA NITROGEN 3 mg/dl (9-20); CALCIUM 8.2 mg/dL (8.4-10.2); GFR AFRICAN-AMERICAN > 60; GFR NON-AFRICAN AMERICAN > 60
[2018-03-09] MEDS: Enoxaparin 40 mg Syringe SC SCH (11:45)
[2018-03-09 12:34] VITALS: BP 98/61; PULSE 85; TEMP 98.8; O2SAT 95
== END 2018-03-09 14:27 | DRG 872 ==
LOC: H.ER 18:35 → H.ERHOLD 20:43 → H.TEL 22:47
PROVIDERS: ADMIT Internal Medicine; ATTEND Internal Medicine
DX: A41.9 Sepsis, unspecified organism (principal); N39.0 Urinary tract infection, site not specified; F05 Delirium due to known physiological condition; F03.91 Unspecified dementia, unspecified severity, with behavioral disturbance; G82.20 Paraplegia, unspecified; B96.1 Klebsiella pneumoniae [K. pneumoniae] as the cause of diseases classified elsewhere; I12.9 Hypertensive chronic kidney disease with stage 1 through stage 4 chronic kidney disease, or unspecified chronic kidney disease; N18.9 Chronic kidney disease, unspecified; G35 Multiple sclerosis; E78.00 Pure hypercholesterolemia, unspecified; G40.909 Epilepsy, unspecified, not intractable, without status epilepticus; G89.29 Other chronic pain; I95.9 Hypotension, unspecified; J44.9 Chronic obstructive pulmonary disease, unspecified; R33.8 Other retention of urine; N20.0 Calculus of kidney; F32.9 Major depressive disorder, single episode, unspecified; F41.9 Anxiety disorder, unspecified; H54.62 Unqualified visual loss, left eye, normal vision right eye; Z74.01 Bed confinement status; Z86.711 Personal history of pulmonary embolism; Z86.718 Personal history of other venous thrombosis and embolism; Z87.01 Personal history of pneumonia (recurrent); Z87.440 Personal history of urinary (tract) infections; Z87.442 Personal history of urinary calculi; Z79.891 Long term (current) use of opiate analgesic

== ENCOUNTER 2018-03-09 14:23 | Inpatient (IN) | payer OTHER ==
[2018-03-09] MEDS ORDERED: FENTANYL 25 MCG TD SCH (16:00)
[2018-03-09] MEDS: Lactobacillus Acidophilus 500 MU Cap PO SCH (16:13)
[2018-03-09] MEDS: Meropenem 1 GM in Sodium Chloride 0.9% 100 ML IVPB SCH (16:17)
[2018-03-09] MEDS ORDERED: Patient's Own Med (Meropenem [Meropenem] 1 GM) IV SCH (17:00)
[2018-03-10] MEDS: Meropenem 1 GM in Sodium Chloride 0.9% 100 ML IVPB SCH ×3 (00:29→16:32)
[2018-03-10] MEDS: Oxycodone/Acetaminophen 5/325 mg Tab PO PRN ×4 (02:08→22:03)
[2018-03-10] MEDS: Lactobacillus Acidophilus 500 MU Cap PO SCH ×2 (08:39→16:31)
[2018-03-10] MEDS: Enoxaparin 40 mg Syringe SC SCH (08:39)
--- NOTE | 2018-03-10 12:04 | CP.PCM.CON ---
History of Present Illness - History of Present Illness History of Present Illness: 52 YO M with h/o MS, paraplegia, urinary retention needing catheterization, recurrent uti, h/o DVT, pe, chronic pain on fentanyl, baclofen, h/o seizures, Pt also has a history of status epilepticus and sepsis related to recurrent UTIs. UA on current admission revealed UTI. . 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, denies smoking, alcohol Allergies Cefazolin Meds reviewed including fentanyl Review of Systems - Review of Systems All systems: reviewed and no additional remarkable complaints except - Constitutional Constitutional: Anorexia - EENT Eyes: As Per HPI Ears: absent: As Per HPI, Decreased Hearing, Ear Discharge, Ear Pain, Tinnitus, Abnormal Hearing, Disequilibrium, Dizziness, Other Nose/Mouth/Throat: absent: As Per HPI, Epistaxis, Nasal Congestion, Nasal Discharge, Nasal Obstruction, Nasal Trauma, Nose Pain, Post Nasal Drip, Sinus Pain, Sinus Pressure, Bleeding Gums, Change in Voice, Dental Pain, Dry Mouth, Dysphagia, Halitosis, Hoarsness, Lip Swelling, Mouth Lesions, Mouth Pain, Odynophagia, Sore Throat, Throat Swelling, Tongue Swelling, Facial Pain, Neck Pain, Neck Mass, Other - Cardiovascular Cardiovascular: absent: As Per HPI, Acrocyanosis, Chest Pain, Chest Pain at Rest , Chest Pain with Activity, Claudication, Diaphoresis, Dyspnea, Dyspnea on Exertion, Edema, Irregular Heart Rhythm, Pain Radiating to Arm/Neck/Jaw, Leg Edema, Leg Ulcers, Lightheadedness, Orthopnea, Palpitations, Paroxysmal Nocturnal Dyspnea, Pedal Edema, Radiating Pain, Rapid Heart Rate, Slow Heart Rate, Syncope, Other - Respiratory Respiratory: absent: As Per HPI, Cough, Dyspnea, Hemoptysis, Dyspnea on Exertion , Wheezing, Snoring, Stridor, Pain on Inspiration, Chest Congestion, Excessive Mucous Production, Change in Mucous Color, Pain with Coughing, Other - Gastrointestinal Gastrointestinal: absent: As Per HPI, Abdominal Pain, Belching, Bloating, Change in Bowel Habits, Change in Stool Character, Coffee Ground Emesis, Constipation, Cramping, Diarrhea, Dyspepsia, Dysphagia, Early Satiety, Excessive Flatus, Fecal Incontinence, Heartburn, Hematemesis, Hematochezia, Loose Stools, Melena, Nausea, Odynophagia, Temesmus, Vomiting, Other - Genitourinary Genitourinary: As Per HPI - Musculoskeletal Musculoskeletal: As Per HPI - Integumentary Integumentary: absent: As Per HPI, Acne, Alopecia, Bleeding Lesions, Change in Hair, Change in Nails, Change in Pigmentation, Changing Lesions, Dry Skin, Erythema, Furuncle, Hirsutism, Lesions, New Lesions, Non-Healing Lesions, Photosensitivity, Pruritus, Rash, Skin Pain, Skin Ulcer, Sores, Striae, Swelling , Unusual Bruising, Wounds, Jaundice, Other - Neurological Neurological: As Per HPI - Psychiatric Psychiatric: absent: As Per HPI, Abnormal Sleep Pattern, Anhedonia, Anxiety, Auditory Hallucinations, Behavioral Changes, Change in Appetite, Change in Libido, Confusion, Depression, Difficulty Concentrating, Hallucinations, Homicidal Ideation, Hopelessness, Irritability, Memory Loss, Mood Swings, Panic Attacks, Paranoia, Suicidal Ideation, Visual Hallucinations, Tactile Hallucinations, Other - Endocrine Endocrine: absent: As Per HPI, Change in Body Appearance, Change in Libido, Cold Intolorance, Deepening of Voice, Excessive Sweating, Fatigue, Flushing, Heat Intolorance, Increase in Ring/Shoe/Hat Size, Palpitations, Polydipsia, Polyphagia, Polyuria, Other - Hematologic/Lymphatic Hematologic: absent: As Per HPI, Easy Bleeding, Easy Bruising, Lymphadenopathy, Other Past Patient History - Infectious Disease Hx of Infectious Diseases: None - Tetanus Immunizations Tetanus Immunization: Unknown - Past Medical History & Family History Past Medical History?: Yes - Past Social History Smoking Status: Former Smoker - CARDIAC Hx Cardiac Disorders: Yes Hx Hypercholesterolemia: Yes Hx Hypertension: Yes Hx Peripheral Edema: Yes (B/L LE no longer swollen) - PULMONARY Hx Chronic Obstructive Pulmonary Disease (COPD): Yes Hx Pneumonia: Yes Hx Pulmonary Embolism: Yes (hx of DVT) - NEUROLOGICAL Hx Neurological Disorder: Yes Hx Dementia: Yes Hx Multiple Sclerosis: Yes Hx Seizures: Yes - HEENT Hx HEENT Problems: Yes (Poor vision, L eye) - RENAL Hx Chronic Kidney Disease: Yes Hx Kidney Stones: Yes (x3 years ago) - ENDOCRINE/METABOLIC Hx Endocrine Disorders: No - HEMATOLOGICAL/ONCOLOGICAL Hx Blood Disorders: No Hx AIDS: No Hx Human Immunodeficiency Virus (HIV): No - INTEGUMENTARY Hx Dermatological Problems: No - MUSCULOSKELETAL/RHEUMATOLOGICAL Hx Musculoskeletal Disorders: Yes Hx Arthritis: Yes (BACK) Hx Falls: No - GASTROINTESTINAL Hx Gastrointestinal Disorders: Yes Hx Constipation: Yes - GENITOURINARY/GYNECOLOGICAL Hx Genitourinary Disorders: Yes Hx Incontinence: Yes Hx Urinary Tract Infection: Yes (Recurrent) - PSYCHIATRIC Hx Anxiety: Yes Hx Depression: Yes Hx Substance Use: No - SURGICAL HISTORY Hx Surgeries: Yes Other/Comment: cysto with removal of stent 05/19/16- kidney stones - ANESTHESIA Hx Anesthesia: Yes Hx Anesthesia Reactions: No Hx Malignant Hyperthermia: No Meds Allergies/Adverse Reactions: Allergies Allergy/AdvReac Type Severity Reaction Status Date / Time cefazolin Allergy RASH, Verified 03/09/18 14:38 ITCHINESS - Medications Medications: Current Medications Baclofen (Lioresal) 20 mg PO TID [facility] Last Admin: 03/10/18 08:39 Dose: 20 mg Enoxaparin Sodium (Lovenox) 40 mg SC DAILY [facility] PRN Reason: Protocol Last Admin: 03/10/18 08:39 Dose: 40 mg Fentanyl (Duragesic) 1 patch TD Q72 [facility] Last Admin: 03/10/18 11:21 Dose: 1 patch Home Med (Dimethyl Fumarate [Tecfidera]) 240 mg PO BID [facility] Last Admin: 03/10/18 10:23 Dose: 240 mg Meropenem 1 gm/ Sodium (Chloride) 100 mls @ 100 mls/hr IVPB Q8 [facility] Last Admin: 03/10/18 08:44 Dose: 100 mls/hr Lactobacillus Acidophilus (Bacid Acidophilus) 1 cap PO BID [facility] Last Admin: 03/10/18 08:39 Dose: 1 cap Lamotrigine (Lamictal) 200 mg PO BID [facility] Last Admin: 03/10/18 08:39 Dose: 200 mg Levetiracetam (Keppra) 2,000 mg PO BID [facility] Last Admin: 03/10/18 08:38 Dose: 2,000 mg Lidocaine HCl (Lidocaine 2% Viscous) 15 ml PO Q6 PRN PRN Reason: Other Last Admin: 03/10/18 02:15 Dose: 15 ml Oxycodone/Acetaminophen (Percocet 5/325 Mg Tab) 1 tab PO Q6 PRN PRN Reason: Pain, severe (8-10) Stop: 03/12/18 14:51 Last Admin: 03/10/18 08:38 Dose: 1 tab Physical Exam - Constitutional Appears: Chronically Ill - Head Exam Head Exam: ATRAUMATIC, NORMOCEPHALIC - Eye Exam Eye Exam: PERRL - ENT Exam ENT Exam: Mucous Membranes Dry - Neck Exam Neck exam: Negative for: Lymphadenopathy - Respiratory Exam Respiratory Exam: Decreased Breath Sounds - Cardiovascular Exam Cardiovascular Exam: REGULAR RHYTHM - GI/Abdominal Exam GI & Abdominal Exam: Diminished Bowel Sounds - Rectal Exam Rectal Exam: Deferred - Exam Exam: NORMAL INSPECTION - Extremities Exam Extremities exam: Negative for: pedal edema - Back Exam Back exam: absent: CVA tenderness (L), CVA tenderness (R) - Neurological Exam Neurological exam: Alert, CN II-XII Intact, Motor Sensory Deficit, Oriented x3 - Psychiatric Exam Psychiatric exam: Depressed - Skin Skin Exam: Dry Results - Vital Signs Recent Vital Signs: Last Vital Signs Temp 97.6 F 03/10/18 07:55 Pulse 73 03/10/18 07:55 Resp 20 03/10/18 07:55 BP 119/66 03/10/18 07:55 Pulse Ox 99 03/10/18 07:55 Assessment & Plan - Assessment and Plan (Free Text) Assessment: recurrent uti due to chronic sales for neurogenic bladder / MS ? allergy to keflex recently treated with zosyn and azactam in past currently on merrem cont rx gu re-eval
--- NOTE | 2018-03-10 13:05 | CP.PCM.HP ---
History of Present Illness - History of Present Illness History of Present Illness: 52 yo male with past medical hx Dementia, Depression, Deep Vein Thrombosis, Kidney Stones, 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 A UA reveled UTI. Patient has hx of status epilepticus and sepsis with recurrent UTI. Patient well responded to rx. Will continue antbx in snf x 6 days. Present on Admission - Present on Admission Any Indicators Present on Admission: No Review of Systems - Constitutional Constitutional: As Per HPI - Cardiovascular Cardiovascular: As Per HPI - Respiratory Respiratory: As Per HPI - Gastrointestinal Gastrointestinal: As Per HPI - Musculoskeletal Musculoskeletal: As Per HPI - Neurological Neurological: As Per HPI - Psychiatric Psychiatric: As Per HPI - Endocrine Endocrine: As Per HPI Past Patient History - Infectious Disease Hx of Infectious Diseases: None - Tetanus Immunizations Tetanus Immunization: Unknown - Past Medical History & Family History Past Medical History?: Yes - Past Social History Smoking Status: Former Smoker - CARDIAC Hx Cardiac Disorders: Yes Hx Hypercholesterolemia: Yes Hx Hypertension: Yes Hx Peripheral Edema: Yes (B/L LE no longer swollen) - PULMONARY Hx Chronic Obstructive Pulmonary Disease (COPD): Yes Hx Pneumonia: Yes Hx Pulmonary Embolism: Yes (hx of DVT) - NEUROLOGICAL Hx Neurological Disorder: Yes Hx Dementia: Yes Hx Multiple Sclerosis: Yes Hx Seizures: Yes - HEENT Hx HEENT Problems: Yes (Poor vision, L eye) - RENAL Hx Chronic Kidney Disease: Yes Hx Kidney Stones: Yes (x3 years ago) - ENDOCRINE/METABOLIC Hx Endocrine Disorders: No - HEMATOLOGICAL/ONCOLOGICAL Hx Blood Disorders: No Hx AIDS: No Hx Human Immunodeficiency Virus (HIV): No - INTEGUMENTARY Hx Dermatological Problems: No - MUSCULOSKELETAL/RHEUMATOLOGICAL Hx Musculoskeletal Disorders: Yes Hx Arthritis: Yes (BACK) Hx Falls: No - GASTROINTESTINAL Hx Gastrointestinal Disorders: Yes Hx Constipation: Yes - GENITOURINARY/GYNECOLOGICAL Hx Genitourinary Disorders: Yes Hx Incontinence: Yes Hx Urinary Tract Infection: Yes (Recurrent) - PSYCHIATRIC Hx Anxiety: Yes Hx Depression: Yes Hx Substance Use: No - SURGICAL HISTORY Hx Surgeries: Yes Other/Comment: cysto with removal of stent 05/19/16- kidney stones - ANESTHESIA Hx Anesthesia: Yes Hx Anesthesia Reactions: No Hx Malignant Hyperthermia: No Meds Allergies/Adverse Reactions: Allergies Allergy/AdvReac Type Severity Reaction Status Date / Time cefazolin Allergy RASH, Verified 03/09/18 14:38 ITCHINESS Physical Exam - Constitutional Appears: Chronically Ill - Head Exam Head Exam: ATRAUMATIC, NORMAL INSPECTION, NORMOCEPHALIC - Eye Exam Eye Exam: Normal appearance - ENT Exam ENT Exam: Mucous Membranes Moist - Neck Exam Neck exam: Positive for: Full Rom, Normal Inspection - Respiratory Exam Respiratory Exam: Clear to Auscultation Bilateral - Cardiovascular Exam Cardiovascular Exam: REGULAR RHYTHM, +S1, +S2 - GI/Abdominal Exam GI & Abdominal Exam: Normal Bowel Sounds - Neurological Exam Neurological exam: Alert, CN II-XII Intact Additional comments: No new deficit. - Psychiatric Exam Psychiatric exam: Normal Affect - Skin Skin Exam: Normal Color Results - Vital Signs Recent Vital Signs: Last Vital Signs Temp 97.6 F 03/10/18 07:55 Pulse 73 03/10/18 07:55 Resp 20 03/10/18 07:55 BP 119/66 03/10/18 07:55 Pulse Ox 99 03/10/18 07:55 Assessment & Plan (1) Sepsis Status: Acute (2) UTI (urinary tract infection) Status: Acute (3) BPH (benign prostatic hyperplasia) Status: Chronic (4) Chronic pain disorder Status: Chronic (5) Debility Status: Chronic (6) Depression Status: Chronic Priority: Medium (7) Multiple sclerosis Status: Chronic (8) Seizure Status: Chronic Priority: Low - Assessment and Plan (Free Text) Plan: As per orders
[2018-03-11] MEDS: Meropenem 1 GM in Sodium Chloride 0.9% 100 ML IVPB SCH ×3 (02:02→17:26)
[2018-03-11] MEDS: Enoxaparin 40 mg Syringe SC SCH (09:56)
[2018-03-11] MEDS: Lactobacillus Acidophilus 500 MU Cap PO SCH ×2 (09:58→17:29)
[2018-03-11] MEDS: Oxycodone/Acetaminophen 5/325 mg Tab PO PRN (10:04)
--- NOTE | 2018-03-11 12:35 | CP.PCM.PN ---
Subjective - Date & Time of Evaluation Date of Evaluation: 03/11/18 Time of Evaluation: 12:34 - Subjective Subjective: Patient comfortable. Objective - Vital Signs/Intake and Output Vital Signs (last 24 hours): Temp Pulse Resp BP Pulse Ox 97.4 F L 89 20 139/86 98 03/11/18 08:34 03/11/18 08:34 03/11/18 08:34 03/11/18 08:34 03/11/18 08:34 Intake and Output: 03/11/18 03/11/18 11:59 23:59 Output Total 900 Balance -900 - Medications Medications: Current Medications Baclofen (Lioresal) 20 mg PO TID [facility] Last Admin: 03/11/18 12:23 Dose: 20 mg Docusate Sodium (Colace) 200 mg PO DAILY [facility] Last Admin: 03/11/18 09:58 Dose: 200 mg Enoxaparin Sodium (Lovenox) 40 mg SC DAILY [facility] PRN Reason: Protocol Last Admin: 03/11/18 09:56 Dose: 40 mg Fentanyl (Duragesic) 1 patch TD Q72 [facility] Last Admin: 03/10/18 11:21 Dose: 1 patch Home Med (Dimethyl Fumarate [Tecfidera]) 240 mg PO BID [facility] Last Admin: 03/11/18 09:56 Dose: 240 mg Meropenem 1 gm/ Sodium (Chloride) 100 mls @ 100 mls/hr IVPB Q8 [facility] Last Admin: 03/11/18 10:00 Dose: Not Given Lactobacillus Acidophilus (Bacid Acidophilus) 1 cap PO BID [facility] Last Admin: 03/11/18 09:58 Dose: 1 cap Lamotrigine (Lamictal) 200 mg PO BID [facility] Last Admin: 03/11/18 09:59 Dose: 200 mg Levetiracetam (Keppra) 2,000 mg PO BID [facility] Last Admin: 03/11/18 09:58 Dose: 2,000 mg Lidocaine HCl (Lidocaine 2% Viscous) 15 ml PO Q6 PRN PRN Reason: Other Last Admin: 03/11/18 02:23 Dose: 15 ml Oxycodone/Acetaminophen (Percocet 5/325 Mg Tab) 1 tab PO Q6 PRN PRN Reason: Pain, severe (8-10) Stop: 03/12/18 14:51 Last Admin: 03/11/18 10:04 Dose: 1 tab - Constitutional Appears: Chronically Ill - Head Exam Head Exam: ATRAUMATIC, NORMAL INSPECTION, NORMOCEPHALIC - Eye Exam Eye Exam: Normal appearance - Neck Exam Neck Exam: Full ROM - Respiratory Exam Respiratory Exam: Clear to Ausculation Bilateral - GI/Abdominal Exam GI & Abdominal Exam: Soft, Normal Bowel Sounds - Neurological Exam Neurological Exam: Alert, Awake - Psychiatric Exam Psychiatric exam: Normal Affect - Skin Skin Exam: Normal Color Assessment and Plan (1) Sepsis Status: Acute (2) UTI (urinary tract infection) Status: Acute (3) BPH (benign prostatic hyperplasia) Status: Chronic (4) Chronic pain disorder Status: Chronic (5) Debility Status: Chronic (6) Depression Status: Chronic (7) Multiple sclerosis Status: Chronic (8) Seizure Status: Chronic - Assessment and Plan (Free Text) Plan: Continue present rx.
[2018-03-12] MEDS: Meropenem 1 GM in Sodium Chloride 0.9% 100 ML IVPB SCH ×3 (02:52→16:34)
[2018-03-12] MEDS: Lactobacillus Acidophilus 500 MU Cap PO SCH ×2 (09:02→16:31)
[2018-03-12] MEDS: Oxycodone/Acetaminophen 5/325 mg Tab PO PRN ×2 (09:09→21:25)
[2018-03-12 12:02] LABS: SQUAMOUS EPITHIAL 1 /hpf (0-5); URINE AMORPHOUS SEDIMENT RARE /ul (<OCC); URINE BACTERIA RARE (<OCC); URINE BILIRUBIN NEGATIVE (NEGATIVE); URINE BLOOD NEGATIVE (NEGATIVE); URINE CLARITY CLOUDY (Clear); URINE COLOR YELLOW (YELLOW); URINE GLUCOSE (UA) NEG (Normal); URINE LEUKOCYTE ESTERASE NEG Leu/uL (Negative); URINE PROTEIN NEGATIVE (NEGATIVE); URINE UROBILINOGEN 0.2-1.0 mg/dL (0.2-1.0)
[2018-03-12] MEDS ORDERED: Lidocaine 1% 5ml Abboject IV ONE (12:40)
--- NOTE | 2018-03-12 13:59 | CP.PCM.PN ---
Subjective - Date & Time of Evaluation Date of Evaluation: 03/12/18 Time of Evaluation: 13:59 - Subjective Subjective: No new c/o AA not in distress. Objective - Vital Signs/Intake and Output Vital Signs (last 24 hours): Temp Pulse Resp BP Pulse Ox 96.3 F L 84 20 112/69 94 L 03/12/18 07:47 03/12/18 07:47 03/12/18 07:47 03/12/18 07:47 03/12/18 07:47 Intake and Output: 03/12/18 03/12/18 11:59 23:59 Intake Total 300 Output Total 600 Balance -300 - Medications Medications: Current Medications Baclofen (Lioresal) 20 mg PO TID [facility] Last Admin: 03/12/18 12:38 Dose: Not Given Docusate Sodium (Colace) 200 mg PO DAILY [facility] Last Admin: 03/12/18 09:04 Dose: 200 mg Enoxaparin Sodium (Lovenox) 40 mg SC DAILY [facility] PRN Reason: Protocol Last Admin: 03/11/18 09:56 Dose: 40 mg Fentanyl (Duragesic) 1 patch TD Q72 [facility] Last Admin: 03/10/18 11:21 Dose: 1 patch Home Med (Dimethyl Fumarate [Tecfidera]) 240 mg PO BID [facility] Last Admin: 03/12/18 09:04 Dose: 240 mg Meropenem 1 gm/ Sodium (Chloride) 100 mls @ 100 mls/hr IVPB Q8 [facility] Last Admin: 03/12/18 09:06 Dose: Not Given Lactobacillus Acidophilus (Bacid Acidophilus) 1 cap PO BID [facility] Last Admin: 03/12/18 09:02 Dose: 1 cap Lamotrigine (Lamictal) 200 mg PO BID [facility] Last Admin: 03/12/18 09:05 Dose: 200 mg Levetiracetam (Keppra) 2,000 mg PO BID [facility] Last Admin: 03/12/18 09:05 Dose: 2,000 mg Lidocaine HCl (Lidocaine 2% Viscous) 15 ml PO Q6 PRN PRN Reason: Other Last Admin: 03/11/18 12:58 Dose: 15 ml Oxycodone/Acetaminophen (Percocet 5/325 Mg Tab) 1 tab PO Q6 PRN PRN Reason: Pain, severe (8-10) Stop: 03/12/18 14:51 Last Admin: 03/12/18 09:09 Dose: 1 tab - Constitutional Appears: Confused, Chronically Ill - Head Exam Head Exam: ATRAUMATIC, NORMAL INSPECTION, NORMOCEPHALIC - Eye Exam Eye Exam: Normal appearance - ENT Exam ENT Exam: Mucous Membranes Moist - Neck Exam Neck Exam: Full ROM - Respiratory Exam Respiratory Exam: Clear to Ausculation Bilateral - Cardiovascular Exam Cardiovascular Exam: REGULAR RHYTHM, +S1, +S2 - GI/Abdominal Exam GI & Abdominal Exam: Soft, Normal Bowel Sounds - Neurological Exam Neurological Exam: Alert, Awake - Psychiatric Exam Psychiatric exam: Normal Affect - Skin Skin Exam: Normal Color Assessment and Plan (1) Sepsis Status: Acute (2) UTI (urinary tract infection) Status: Acute (3) BPH (benign prostatic hyperplasia) Status: Chronic (4) Chronic pain disorder Status: Chronic (5) Debility Status: Chronic (6) Depression Status: Chronic (7) Multiple sclerosis Status: Chronic (8) Seizure Status: Chronic - Assessment and Plan (Free Text) Plan: Continue present rx.
[2018-03-12] MEDS: Enoxaparin 40 mg Syringe SC SCH (14:19)
[2018-03-13] MEDS: Meropenem 1 GM in Sodium Chloride 0.9% 100 ML IVPB SCH ×3 (00:26→16:21)
[2018-03-13 06:44] LABS: BLOOD UREA NITROGEN 10 mg/dl (9-20); CALCIUM 9.4 mg/dL (8.4-10.2); GFR NON-AFRICAN AMERICAN > 60
[2018-03-13 07:56] LABS: HEMOGLOBIN 14.3 g/dL (12.0-18.0); MEAN CORPUSCULAR HEMOGLOBIN 30.6 pg (27.0-31.0); MEAN CORPUSCULAR HGB CONC 33.6 g/dL (33.0-37.0); RBC 4.67 Mil/uL (4.40-5.90); RED CELL DISTRIBUTION WIDTH 14.3 % (11.5-14.5); WHITE BLOOD COUNT 9.1 K/uL (4.8-10.8)
[2018-03-13] MEDS: Lactobacillus Acidophilus 500 MU Cap PO SCH ×2 (10:01→16:23)
[2018-03-13] MEDS: Enoxaparin 40 mg Syringe SC SCH (10:02)
--- NOTE | 2018-03-13 12:28 | CP.PCM.PN ---
Subjective - Date & Time of Evaluation Date of Evaluation: 03/13/18 Time of Evaluation: 12:28 - Subjective Subjective: Comfortable, not in distress Objective - Vital Signs/Intake and Output Vital Signs (last 24 hours): Temp Pulse Resp BP Pulse Ox 98.2 F 74 19 132/72 94 L 03/13/18 08:00 03/13/18 08:00 03/13/18 08:00 03/13/18 08:00 03/13/18 08:00 - Medications Medications: Current Medications Baclofen (Lioresal) 20 mg PO TID [facility] Last Admin: 03/13/18 10:01 Dose: 20 mg Docusate Sodium (Colace) 200 mg PO DAILY [facility] Last Admin: 03/13/18 10:03 Dose: 200 mg Fentanyl (Duragesic) 1 patch TD Q72 [facility] Last Admin: 03/13/18 10:00 Dose: 1 patch Home Med (Dimethyl Fumarate [Tecfidera]) 240 mg PO BID [facility] Last Admin: 03/13/18 10:00 Dose: 240 mg Meropenem 1 gm/ Sodium (Chloride) 100 mls @ 100 mls/hr IVPB Q8 [facility] Last Admin: 03/13/18 09:59 Dose: 100 mls/hr Lactobacillus Acidophilus (Bacid Acidophilus) 1 cap PO BID [facility] Last Admin: 03/13/18 10:01 Dose: 1 cap Lamotrigine (Lamictal) 200 mg PO BID [facility] Last Admin: 03/13/18 10:01 Dose: 200 mg Levetiracetam (Keppra) 2,000 mg PO BID [facility] Last Admin: 03/13/18 10:02 Dose: 2,000 mg Lidocaine HCl (Lidocaine 2% Viscous) 15 ml PO Q6 PRN PRN Reason: Other Last Admin: 03/13/18 10:13 Dose: 15 ml Oxycodone/Acetaminophen (Percocet 5/325 Mg Tab) 1 tab PO Q6 PRN PRN Reason: Pain, severe (8-10) Stop: 03/15/18 21:00 Last Admin: 03/12/18 21:25 Dose: 1 tab - Labs Labs: 03/13/18 07:45 03/13/18 06:00 - Constitutional Appears: Confused, Chronically Ill - Head Exam Head Exam: ATRAUMATIC, NORMAL INSPECTION, NORMOCEPHALIC - Eye Exam Eye Exam: Normal appearance - ENT Exam ENT Exam: Mucous Membranes Moist - Neck Exam Neck Exam: Full ROM - Respiratory Exam Respiratory Exam: Decreased Breath Sounds - Cardiovascular Exam Cardiovascular Exam: REGULAR RHYTHM, +S1, +S2 - GI/Abdominal Exam GI & Abdominal Exam: Normal Bowel Sounds - Neurological Exam Neurological Exam: Alert, Awake - Psychiatric Exam Psychiatric exam: Anxious - Skin Skin Exam: Normal Color Assessment and Plan (1) Sepsis Status: Acute (2) UTI (urinary tract infection) Status: Acute (3) BPH (benign prostatic hyperplasia) Status: Chronic (4) Chronic pain disorder Status: Chronic (5) Debility Status: Chronic (6) Depression Status: Chronic (7) Multiple sclerosis Status: Chronic (8) Seizure Status: Chronic - Assessment and Plan (Free Text) Plan: Continue present rx.
[2018-03-13] MEDS: Oxycodone/Acetaminophen 5/325 mg Tab PO PRN ×2 (13:12→21:06)
[2018-03-13 15:45] VITALS: RESP 20
[2018-03-14] MEDS: Oxycodone/Acetaminophen 5/325 mg Tab PO PRN ×2 (06:11→13:43)
[2018-03-14] MEDS: Lactobacillus Acidophilus 500 MU Cap PO SCH ×2 (09:31→17:42)
[2018-03-14] MEDS: Enoxaparin 40 mg Syringe SC SCH (09:34)
[2018-03-14] MEDS: Meropenem 1 GM in Sodium Chloride 0.9% 100 ML IVPB SCH ×3 (09:34→18:25)
--- NOTE | 2018-03-14 12:38 | CP.PCM.PN ---
Subjective - Date & Time of Evaluation Date of Evaluation: 03/14/18 Time of Evaluation: 19:04 - Subjective Subjective: No new c/o, comfortable. Objective - Vital Signs/Intake and Output Vital Signs (last 24 hours): Temp Pulse Resp BP Pulse Ox 96.1 F L 85 20 102/67 97 03/14/18 09:09 03/14/18 09:09 03/14/18 09:09 03/14/18 09:09 03/14/18 09:09 - Medications Medications: Current Medications Baclofen (Lioresal) 20 mg PO TID [facility] Last Admin: 03/14/18 09:34 Dose: 20 mg Docusate Sodium (Colace) 200 mg PO DAILY [facility] Last Admin: 03/14/18 09:32 Dose: 200 mg Enoxaparin Sodium (Lovenox) 40 mg SC DAILY [facility] PRN Reason: Protocol Last Admin: 03/14/18 09:34 Dose: 40 mg Fentanyl (Duragesic) 1 patch TD Q72 [facility] Last Admin: 03/13/18 10:00 Dose: 1 patch Home Med (Dimethyl Fumarate [Tecfidera]) 240 mg PO BID [facility] Last Admin: 03/14/18 09:33 Dose: 240 mg Meropenem 1 gm/ Sodium (Chloride) 100 mls @ 100 mls/hr IVPB Q8 [facility] Last Admin: 03/14/18 09:34 Dose: 100 mls/hr Lactobacillus Acidophilus (Bacid Acidophilus) 1 cap PO BID [facility] Last Admin: 03/14/18 09:31 Dose: 1 cap Lamotrigine (Lamictal) 200 mg PO BID [facility] Last Admin: 03/14/18 09:33 Dose: 200 mg Levetiracetam (Keppra) 2,000 mg PO BID [facility] Last Admin: 03/14/18 09:33 Dose: 2,000 mg Lidocaine HCl (Lidocaine 2% Viscous) 15 ml PO Q6 PRN PRN Reason: Other Last Admin: 03/14/18 06:05 Dose: 15 ml Oxycodone/Acetaminophen (Percocet 5/325 Mg Tab) 1 tab PO Q6 PRN PRN Reason: Pain, severe (8-10) Stop: 03/15/18 21:00 Last Admin: 03/14/18 06:11 Dose: 1 tab - Labs Labs: 03/13/18 07:45 03/13/18 06:00 - Constitutional Appears: Confused, Chronically Ill - Head Exam Head Exam: ATRAUMATIC, NORMAL INSPECTION, NORMOCEPHALIC - Eye Exam Eye Exam: Normal appearance - ENT Exam ENT Exam: Mucous Membranes Moist - Neck Exam Neck Exam: Full ROM - Respiratory Exam Respiratory Exam: Clear to Ausculation Bilateral - Cardiovascular Exam Cardiovascular Exam: REGULAR RHYTHM, +S1, +S2 - GI/Abdominal Exam GI & Abdominal Exam: Soft, Normal Bowel Sounds - Extremities Exam Extremities Exam: Full ROM - Neurological Exam Neurological Exam: Alert, Awake, CN II-XII Intact Assessment and Plan (1) Sepsis Status: Acute (2) UTI (urinary tract infection) Status: Acute (3) BPH (benign prostatic hyperplasia) Status: Chronic (4) Chronic pain disorder Status: Chronic (5) Debility Status: Chronic (6) Depression Status: Chronic (7) Multiple sclerosis Status: Chronic (8) Seizure Status: Chronic
[2018-03-15] MEDS: Meropenem 1 GM in Sodium Chloride 0.9% 100 ML IVPB SCH ×3 (01:01→17:09)
[2018-03-15] MEDS: Oxycodone/Acetaminophen 5/325 mg Tab PO PRN ×3 (01:02→19:44)
[2018-03-15] MEDS: Enoxaparin 40 mg Syringe SC SCH (10:00)
[2018-03-15] MEDS: Lactobacillus Acidophilus 500 MU Cap PO SCH ×2 (10:05→17:00)
--- NOTE | 2018-03-15 11:28 | CP.PCM.PN ---
Subjective - Date & Time of Evaluation Date of Evaluation: 03/15/18 Time of Evaluation: 12:00 - Subjective Subjective: Comfortable at time agitated. Objective - Vital Signs/Intake and Output Vital Signs (last 24 hours): Temp Pulse Resp BP Pulse Ox 97.6 F 82 20 107/64 99 03/15/18 08:28 03/15/18 08:28 03/15/18 08:28 03/15/18 08:28 03/15/18 08:28 - Medications Medications: Current Medications Baclofen (Lioresal) 20 mg PO TID [facility] Last Admin: 03/15/18 09:59 Dose: 20 mg Docusate Sodium (Colace) 200 mg PO DAILY [facility] Last Admin: 03/15/18 09:58 Dose: 200 mg Enoxaparin Sodium (Lovenox) 40 mg SC DAILY [facility] PRN Reason: Protocol Last Admin: 03/15/18 10:00 Dose: 40 mg Fentanyl (Duragesic) 1 patch TD Q72 [facility] Last Admin: 03/13/18 10:00 Dose: 1 patch Home Med (Dimethyl Fumarate [Tecfidera]) 240 mg PO BID [facility] Last Admin: 03/15/18 09:59 Dose: 240 mg Meropenem 1 gm/ Sodium (Chloride) 100 mls @ 100 mls/hr IVPB Q8 [facility] Last Admin: 03/15/18 10:01 Dose: 100 mls/hr Lactobacillus Acidophilus (Bacid Acidophilus) 1 cap PO BID [facility] Last Admin: 03/15/18 10:05 Dose: 1 cap Lamotrigine (Lamictal) 200 mg PO BID [facility] Last Admin: 03/15/18 09:59 Dose: 200 mg Levetiracetam (Keppra) 2,000 mg PO BID [facility] Last Admin: 03/15/18 09:58 Dose: 2,000 mg Lidocaine HCl (Lidocaine 2% Viscous) 15 ml PO Q6 PRN PRN Reason: Other Last Admin: 03/14/18 13:41 Dose: 15 ml Oxycodone/Acetaminophen (Percocet 5/325 Mg Tab) 1 tab PO Q6 PRN PRN Reason: Pain, severe (8-10) Stop: 03/15/18 21:00 Last Admin: 03/15/18 11:06 Dose: 1 tab - Labs Labs: 03/13/18 07:45 03/13/18 06:00 - Constitutional Appears: Confused, Chronically Ill - Head Exam Head Exam: ATRAUMATIC, NORMAL INSPECTION, NORMOCEPHALIC - ENT Exam ENT Exam: Mucous Membranes Moist - Neck Exam Neck Exam: Full ROM - Respiratory Exam Respiratory Exam: Clear to Ausculation Bilateral - Cardiovascular Exam Cardiovascular Exam: REGULAR RHYTHM, +S1, +S2 - GI/Abdominal Exam GI & Abdominal Exam: Soft, Normal Bowel Sounds - Extremities Exam Extremities Exam: Full ROM - Neurological Exam Neurological Exam: Alert, Awake, CN II-XII Intact - Psychiatric Exam Psychiatric exam: Anxious - Skin Skin Exam: Normal Color Assessment and Plan (1) Sepsis Status: Acute (2) UTI (urinary tract infection) Status: Acute (3) BPH (benign prostatic hyperplasia) Status: Chronic (4) Chronic pain disorder Status: Chronic (5) Debility Status: Chronic (6) Depression Status: Chronic (7) Multiple sclerosis Status: Chronic (8) Seizure Status: Chronic - Assessment and Plan (Free Text) Plan: Continue present rx For DC in AM
--- NOTE | 2018-03-15 12:36 | CP.PCM.PN ---
Subjective - Date & Time of Evaluation Date of Evaluation: 03/15/18 Time of Evaluation: 10:00 - Subjective Subjective: awake alert afeb nad Objective - Vital Signs/Intake and Output Vital Signs (last 24 hours): Temp Pulse Resp BP Pulse Ox 97.6 F 82 20 107/64 99 03/15/18 08:28 03/15/18 08:28 03/15/18 08:28 03/15/18 08:28 03/15/18 08:28 - Medications Medications: Current Medications Baclofen (Lioresal) 20 mg PO TID [facility] Last Admin: 03/15/18 09:59 Dose: 20 mg Docusate Sodium (Colace) 200 mg PO DAILY [facility] Last Admin: 03/15/18 09:58 Dose: 200 mg Enoxaparin Sodium (Lovenox) 40 mg SC DAILY [facility] PRN Reason: Protocol Last Admin: 03/15/18 10:00 Dose: 40 mg Fentanyl (Duragesic) 1 patch TD Q72 [facility] Last Admin: 03/13/18 10:00 Dose: 1 patch Home Med (Dimethyl Fumarate [Tecfidera]) 240 mg PO BID [facility] Last Admin: 03/15/18 09:59 Dose: 240 mg Meropenem 1 gm/ Sodium (Chloride) 100 mls @ 100 mls/hr IVPB Q8 [facility] Last Admin: 03/15/18 10:01 Dose: 100 mls/hr Lactobacillus Acidophilus (Bacid Acidophilus) 1 cap PO BID [facility] Last Admin: 03/15/18 10:05 Dose: 1 cap Lamotrigine (Lamictal) 200 mg PO BID [facility] Last Admin: 03/15/18 09:59 Dose: 200 mg Levetiracetam (Keppra) 2,000 mg PO BID [facility] Last Admin: 03/15/18 09:58 Dose: 2,000 mg Lidocaine HCl (Lidocaine 2% Viscous) 15 ml PO Q6 PRN PRN Reason: Other Last Admin: 03/14/18 13:41 Dose: 15 ml Oxycodone/Acetaminophen (Percocet 5/325 Mg Tab) 1 tab PO Q6 PRN PRN Reason: Pain, severe (8-10) Stop: 03/15/18 21:00 Last Admin: 03/15/18 11:06 Dose: 1 tab - Labs Labs: 03/13/18 07:45 03/13/18 06:00 - Constitutional Appears: Non-toxic, Chronically Ill - Head Exam Head Exam: NORMOCEPHALIC - Eye Exam Eye Exam: PERRL - ENT Exam ENT Exam: Mucous Membranes Dry - Neck Exam Neck Exam: absent: Lymphadenopathy - Respiratory Exam Respiratory Exam: Decreased Breath Sounds - Cardiovascular Exam Cardiovascular Exam: REGULAR RHYTHM - GI/Abdominal Exam GI & Abdominal Exam: Distended Assessment and Plan - Assessment and Plan (Free Text) Assessment: cont rx for uti d/c on PO rx
[2018-03-15] MEDS ORDERED: Oxycodone/Acetaminophen 5/325 mg Tab PO STA (14:53)
[2018-03-15] MEDS ORDERED: Oxycodone/Acetaminophen 5/325 mg Tab PO PRN (23:40)
[2018-03-16] MEDS: Meropenem 1 GM in Sodium Chloride 0.9% 100 ML IVPB SCH ×2 (00:50→10:09)
[2018-03-16] MEDS: Enoxaparin 40 mg Syringe SC SCH (10:10)
[2018-03-16] MEDS: Lactobacillus Acidophilus 500 MU Cap PO SCH (10:12)
--- NOTE | 2018-03-16 10:54 | CP.PCM.DIS ---
Provider - Provider Date of Admission: 03/09/18 14:38 Attending physician: Leo Morris MD Time Spent in preparation of Discharge (in minutes): 30 Diagnosis - Discharge Diagnosis (1) Sepsis Status: Acute (2) UTI (urinary tract infection) Status: Acute (3) BPH (benign prostatic hyperplasia) Status: Chronic (4) Chronic pain disorder Status: Chronic (5) Debility Status: Chronic (6) Depression Status: Chronic Priority: Medium (7) Multiple sclerosis Status: Chronic (8) Seizure Status: Chronic Priority: Low Hospital Course - Lab Results Lab Results: Most Recent Lab Values WBC 9.1 K/uL (4.8-10.8) D 03/13/18 07:45 RBC 4.67 Mil/uL (4.40-5.90) 03/13/18 07:45 Hgb 14.3 g/dL (12.0-18.0) D 03/13/18 07:45 Hct 42.5 % (35.0-51.0) 03/13/18 07:45 MCV 91.0 fl (80.0-94.0) 03/13/18 07:45 MCH 30.6 pg (27.0-31.0) 03/13/18 07:45 MCHC 33.6 g/dL (33.0-37.0) 03/13/18 07:45 RDW 14.3 % (11.5-14.5) 03/13/18 07:45 Plt Count 453 K/uL (130-400) H D 03/13/18 07:45 Sodium 142 mmol/l (132-148) 03/13/18 06:00 Potassium 4.5 MMOL/L (3.6-5.0) 03/13/18 06:00 Chloride 105 mmol/L (98-107) 03/13/18 06:00 Carbon Dioxide 28 mmol/L (22-30) 03/13/18 06:00 Anion Gap 14 (10-20) 03/13/18 06:00 BUN 10 mg/dl (9-20) 03/13/18 06:00 Creatinine 0.5 mg/dl (0.8-1.5) L 03/13/18 06:00 Est GFR ( Amer) > 60 03/13/18 06:00 Est GFR (Non-Af Amer) > 60 03/13/18 06:00 Random Glucose 97 mg/dL (75-110) 03/13/18 06:00 Calcium 9.4 mg/dL (8.4-10.2) 03/13/18 06:00 Urine Color Yellow (YELLOW) 03/12/18 11:31 Urine Clarity Cloudy (Clear) 03/12/18 11:31 Urine pH 8.0 (5.0-8.0) 03/12/18 11:31 Ur Specific [place] 1.016 (1.003-1.030) 03/12/18 11:31 Urine Protein Negative mg/dL (NEGATIVE) 03/12/18 11:31 Urine Glucose (UA) Neg mg/dL (Normal) 03/12/18 11:31 Urine Ketones Trace mg/dL (NEGATIVE) 03/12/18 11:31 Urine Blood Negative (NEGATIVE) 03/12/18 11:31 Urine Nitrate Negative (NEGATIVE) 03/12/18 11:31 Urine Bilirubin Negative (NEGATIVE) 03/12/18 11:31 Urine Urobilinogen 0.2-1.0 mg/dL (0.2-1.0) 03/12/18 11:31 Ur Leukocyte Esterase Neg [place]/uL (Negative) 03/12/18 11:31 Urine RBC (Auto) 4 /hpf (0-3) H 03/12/18 11:31 Urine Microscopic WBC 7 /hpf (0-5) H 03/12/18 11:31 Ur Squamous Epith Cells 1 /hpf (0-5) 03/12/18 11:31 Amorphous Sediment Rare /ul (<OCC) H 03/12/18 11:31 Urine Bacteria Rare (<OCC) 03/12/18 11:31 - Hospital Course Hospital Course: 52 yo male with past medical hx Dementia, Depression, Deep Vein Thrombosis, Kidney Stones, 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 A UA reveled UTI. Patient has hx of status epilepticus and sepsis with recurrent UTI. Patient well responded to rx. Discharge Exam - Head Exam Head Exam: ATRAUMATIC, NORMAL INSPECTION, NORMOCEPHALIC - Eye Exam Eye Exam: Normal appearance - ENT Exam ENT Exam: Normal External Ear Exam - Neck Exam Neck exam: Full Rom - Respiratory Exam Respiratory Exam: Clear to PA & Lateral - Cardiovascular Exam Cardiovascular Exam: REGULAR RHYTHM, +S1, +S2 - GI/Abdominal Exam GI & Abdominal Exam: Normal Bowel Sounds - Extremities Exam Extremities exam: normal inspection - Neurological Exam Neurological exam: Alert, CN II-XII Intact - Psychiatric Exam Psychiatric exam: Normal Affect - Skin Skin Exam: Normal Color Discharge Plan - Follow Up Plan Condition: GOOD Disposition: HOME/ ROUTINE
[2018-03-16 15:35] VITALS: BP 108/67; PULSE 93; TEMP 97.2; O2SAT 97
== END 2018-03-16 17:40 | disposition home or self-care (01) | DRG 690 ==
LOC: H.TCU 14:38
PROVIDERS: ADMIT Internal Medicine; ATTEND Internal Medicine
PROC: 3E03329 Introduction of Other Anti-infective into Peripheral Vein, Percutaneous Approach (ICD-10-PCS; principal; 2018-03-09)
PROC: F07Z9FZ Gait Training/Functional Ambulation Treatment using Assistive, Adaptive, Supportive or Protective Equipment (ICD-10-PCS; 2018-03-09)
PROC: F08Z4FZ Home Management Treatment using Assistive, Adaptive, Supportive or Protective Equipment (ICD-10-PCS; 2018-03-10)
PROC: F07M6FZ Therapeutic Exercise Treatment of Musculoskeletal System - Whole Body using Assistive, Adaptive, Supportive or Protective Equipment (ICD-10-PCS; 2018-03-10)
DX: N39.0 Urinary tract infection, site not specified (principal); G82.20 Paraplegia, unspecified; G35 Multiple sclerosis; G89.29 Other chronic pain; N18.9 Chronic kidney disease, unspecified; I12.9 Hypertensive chronic kidney disease with stage 1 through stage 4 chronic kidney disease, or unspecified chronic kidney disease; N31.9 Neuromuscular dysfunction of bladder, unspecified; J44.9 Chronic obstructive pulmonary disease, unspecified; G40.901 Epilepsy, unspecified, not intractable, with status epilepticus; E78.00 Pure hypercholesterolemia, unspecified; F03.90 Unspecified dementia, unspecified severity, without behavioral disturbance, psychotic disturbance, mood disturbance, and anxiety; N40.1 Benign prostatic hyperplasia with lower urinary tract symptoms; R33.8 Other retention of urine; R53.81 Other malaise; F32.9 Major depressive disorder, single episode, unspecified; F41.9 Anxiety disorder, unspecified; M19.90 Unspecified osteoarthritis, unspecified site; H54.62 Unqualified visual loss, left eye, normal vision right eye; Z74.01 Bed confinement status; Z87.442 Personal history of urinary calculi; Z87.440 Personal history of urinary (tract) infections; Z87.01 Personal history of pneumonia (recurrent); Z86.718 Personal history of other venous thrombosis and embolism; Z86.711 Personal history of pulmonary embolism; Z79.891 Long term (current) use of opiate analgesic; Z87.891 Personal history of nicotine dependence

== ENCOUNTER 2018-05-03 19:49 | Inpatient (IN) | payer MEDICARE, OTHER ==
[2018-05-03] MEDS ORDERED: Sodium Chloride 0.9% 1,000 ML IV STA (20:16)
[2018-05-03 20:25] LABS: BASO % 0.5 % (0.0-2.0); EOS # 0.4 K/uL (0.0-0.7); EOS % 3.8 % (0.0-4.0); HEMOGLOBIN 14.6 g/dL (12.0-18.0); LYMPH # 2.9 K/uL (1.0-4.3); LYMPH % 30.8 % (20.0-40.0); MEAN CELL VOLUME 91.7 fl (80.0-94.0); MEAN CORPUSCULAR HEMOGLOBIN 30.2 pg (27.0-31.0); MEAN CORPUSCULAR HGB CONC 32.9 g/dL (33.0-37.0); MONO # 1.1 K/uL (0.0-0.8); MONO % 11.2 % (0.0-10.0); NEUT % 53.7 % (50.0-75.0); RBC 4.83 Mil/uL (4.40-5.90); RED CELL DISTRIBUTION WIDTH 13.6 % (11.5-14.5); WHITE BLOOD COUNT 9.4 K/uL (4.8-10.8)
[2018-05-03 20:26] LABS: VENOUS BLOOD GAS BASE EXCESS 3.7 mmol/L (0.0-2.0); VENOUS BLOOD GAS PCO2 74 mmHg (40-60); VENOUS BLOOD GAS PO2 104 mm/Hg (30-55); VENOUS BLOOD PH 7.26 (7.32-7.43)
[2018-05-03 20:28] LABS: INR 1.1; PROTHROMBIN TIME 11.9 Seconds (9.8-13.1)
[2018-05-03] MEDS ORDERED: levETIRAcetam 1,000 MG in Sodium Chloride 0.9% 100 ML IVPB ONE (20:30)
[2018-05-03 20:31] LABS: PARTIAL THROMBOPLASTIN TIME 34.9 Seconds (25.6-37.1)
[2018-05-03 20:35] LABS: URINE BACTERIA MANY (<OCC); URINE BILIRUBIN NEGATIVE (NEGATIVE); URINE BLOOD SMALL (NEGATIVE); URINE CLARITY TURBID (Clear); URINE COLOR AMBER (YELLOW); URINE GLUCOSE (UA) NEG (Normal); URINE LEUKOCYTE ESTERASE LARGE Leu/uL (Negative); URINE PROTEIN 100 mg/dL (NEGATIVE); URINE UROBILINOGEN 0.2-1.0 mg/dL (0.2-1.0); WBC CLUMPS OCC /hpf
[2018-05-03 20:37] LABS: BLOOD UREA NITROGEN 13 mg/dl (9-20); GFR NON-AFRICAN AMERICAN > 60
[2018-05-03] MEDS ORDERED: Etomidate 20 mg/10ml Inj IV ONE (20:40)
[2018-05-03] MEDS ORDERED: Succinylcholine 200 mg/10 ml Inj IV ONE (20:40)
[2018-05-03] MEDS ORDERED: Propofol 10 mg/ml Inj (20 ML) ONE (20:43)
[2018-05-03] MEDS ORDERED: Propofol 10 mg/ml 0 MG/0 ML VIAL ONE (20:44)
--- NOTE | 2018-05-03 21:28 | ED PDOC ---
HPI: Seizure Time Seen by Provider: 05/03/18 19:58 Chief Complaint (Nursing): Seizure Chief Complaint (Provider): Seizure History Per: Family History/Exam Limitations: no limitations Precipitating Factor(s): Other (Fever) Post-ictal Period: Yes Severity: Severe Additional History Per: Family Additional Complaint(s): 52 year old male presents to the ED via EMS complaining of seizures that happened [employer] which lasted about an hour. Ambulance arrived and gave patient Ativan and Versed but seizure continued. states patient has a history of seizures and typically gets a seizure when he has a UTI. Denies vomiting or fever. She indicates patient was fine all day and reports patient has a history of multiple sclerosis. Patient is bed ridden due to MS and takes Keppra and Lamictal at home. PMD: Leo Araujo Past Medical History Reviewed: Historical Data, Nursing Documentation, Vital Signs Vital Signs: Last Vital Signs Temp 99.9 F H 05/03/18 20:13 Pulse 114 H 05/03/18 19:58 Resp 18 05/03/18 19:58 BP 115/84 05/03/18 20:06 Pulse Ox 98 05/03/18 19:58 - Medical History PMH: Anemia, Anxiety, Arthritis (BACK), COPD, Dementia, Depression, Deep Vein Thrombosis, HTN, Hypercholesterolemia, Kidney Stones (x3 years ago), Multiple Sclerosis, Peripheral Edema (B/L LE no longer swollen), Pneumonia, Pulmonary Embolism (hx of DVT), Chronic Kidney Disease, Seizures Denies: HIV - Surgical History Surgical History: No Surg Hx - Family History Family History: States: Unknown Family Hx - Immunization History Hx Tetanus Toxoid Vaccination: No Hx Influenza Vaccination: Yes Hx Pneumococcal Vaccination: Yes - Home Medications Home Medications: Ambulatory Orders Medication Instructions Recorded RX: Baclofen [Lioresal] 20 mg PO TID #90 tab 07/14/17 RX: Lamotrigine [Lamictal] 200 mg PO BID 01/20/18 RX: levETIRAcetam [Keppra] 2,000 mg PO BID 01/20/18 Dimethyl Fumarate [Tecfidera] 1 cap PO BID 05/03/18 Fentanyl 1 patch TD PRN PRN 05/03/18 - Allergies Allergies/Adverse Reactions: Allergies Allergy/AdvReac Type Severity Reaction Status Date / Time cefazolin Allergy RASH, Verified 05/03/18 20:02 ITCHINESS Review of Systems ROS Statement: Except As Marked, All Systems Reviewed And Found Negative Constitutional: Negative for: Fever Gastrointestinal: Negative for: Vomiting Neurological: Positive for: Seizures Physical Exam - Reviewed Nursing Documentation Reviewed: Yes Vital Signs Reviewed: Yes - Physical Exam Appears: Positive for: No Acute Distress (obtunded) Head Exam: Positive for: ATRAUMATIC Skin: Positive for: Normal Color, Warm, Dry Eye Exam: Positive for: Normal appearance, EOMI, PERRL ENT: Positive for: Normal ENT Inspection Neck: Positive for: Normal, Painless ROM Cardiovascular/Chest: Positive for: Regular Rate, Rhythm, Tachycardia Respiratory: Positive for: Normal Breath Sounds. Negative for: Respiratory Distress Gastrointestinal/Abdominal: Positive for: Normal Exam, Soft. Negative for: Tenderness Male Genital Exam: Positive for: other (Taylor catheter in place) Extremity: Positive for: Normal ROM, Other (Left sided intermittent seizures of the left upper extremity) Neurologic/Psych: Positive for: applications developer II-XII (no deficits), Oriented (x1). Negative for: Alert - Laboratory Results Result Diagrams: 05/04/18 05:30 05/04/18 05:30 - ECG O2 Sat by Pulse Oximetry: 98 (RA) Pulse Ox Interpretation: Normal - Critical Care Total Time (In Min): 60 Medical Decision Making Medical Decision Making: Initial Impression: Recurrent seizure status epilepticus, UTI Differentials include sepsis and intracranial bleeding Initial Plan: --Venous blood gas --Head CT --ECG --BMP --Magnesium stat --Phosphorous stat --CBC --Partial thromboplastin --Prothrombin time --Chest X-ray --Ativan 2mg IV --Cerebyx 1500mg IV --Keppra 1000mg IV --Merrem 1gm IV --Vanc 1gm IV --Sodium chloride 1000mL IV --Tylenol 325mg [place] --Blood culture --Urine culture --Urinalysis 2029 I discussed possible intubation if status continues with the who is health care surrogate for the patient and prefers no intubation at this time unless medications do not help. We will continue to reassess and rediscuss with the . [address] Pimentel for neurology consult agrees with management, medications, and intubation for refractory seizure. 2100 Upon reevaluation, patient has improved with medications and has not seized. Discussed with the and agrees with the plan of continue monitoring, admit, and no intubation at time time unless seizures recur. Time: 2130 CT Brain Impression: --No acute hemorrhage or infract. --Findings are consistent with moderately severe age-related atrophy and chronic small vessel ischemic disease. [address] Morris who will admit and requests Dr Yee RENTERIA and Dr Margarito stewart for consults. [address] Pardo for ICU admission Scribe Attestation: Documented by Shaquille Larson acting as a scribe for Rafal Patel MD. Provider Scribe Attestation: All medical record entries made by the Scribe were at my direction and personally dictated by me. I have reviewed the chart and agree that the record accurately reflects my personal performance of the history, physical exam, medical decision making, and the department course for this patient. I have also personally directed, reviewed, and agree with the discharge instructions and disposition. Disposition - Clinical Impression Clinical Impression: UTI (urinary tract infection), Sepsis, Status epilepticus, Recurrent seizures - Patient ED Disposition Is Patient to be Admitted: Yes Discussed With DrJorge: Leo Morris Doctor Will See Patient In The: Hospital Counseled Patient/Family Regarding: Studies Performed, Diagnosis - Disposition Disposition Time: 22:30 Condition: CRITICAL
[2018-05-03] MEDS ORDERED: Meropenem 1 GM in Sodium Chloride 0.9% 100 ML IVPB ONE (21:30)
--- NOTE | 2018-05-03 23:53 | CP.PCM.CON ---
History of Present Illness - History of Present Illness History of Present Illness: PMD: Leo Araujo Reason for consult: Critical care management Chief Complaint: Seizure The patient was seen and examined in the ED HPI: This hx is obtained from the ED physician and after review of the medical records. He is a 52 years old male with hx of anxiety, Depression, Multiple Sclerosis, paraplegic, bed ridden and multiple admissions with Seizure where he had to be intubated and treated to control the seizure. He was brought to the Ed because he had a witnessed seizure of more than one hour. The EMS administered Ativan and Versed at th3e home but the seizure continued. In the ED he was given more Ativan, IV Keppra and Fosphenytoin. The seizure ceased in the ED PMH: Anemia, Anxiety, Arthritis (BACK), COPD, Dementia, Depression, DVT, HTN, HLD, Kidney Stones (x3 years ago), Multiple Sclerosis, Peripheral Edema (B/L LE no longer swollen), Pneumonia, PE (hx of DVT), CKD, Seizures PSH: Cystoscopy and Removal of Stents 05/19/16 SH: Never Smoked, No illegal drug use, No alcohol, Live with family FH: Unknown Family Hx Allergies: Cefazolin Medication: Reviewed Review of Systems - Review of Systems Review of Systems: Review of system is limited because the patient is post ictus and was treated with Ativan Past Patient History - Infectious Disease Hx of Infectious Diseases: None - Tetanus Immunizations Tetanus Immunization: Unknown - Past Medical History & Family History Past Medical History?: Yes - Past Social History Smoking Status: Never Smoked Alcohol: None Drugs: Denies Home Situation {Lives}: With Family - CARDIAC Hx Hypercholesterolemia: Yes Hx Hypertension: Yes Hx Peripheral Edema: Yes (B/L LE no longer swollen) - PULMONARY Hx Chronic Obstructive Pulmonary Disease (COPD): Yes Hx Pneumonia: Yes Hx Pulmonary Embolism: Yes (hx of DVT) - NEUROLOGICAL Hx Dementia: Yes Hx Multiple Sclerosis: Yes Hx Seizures: Yes - HEENT Hx HEENT Problems: Yes (Poor vision, L eye) - RENAL Hx Chronic Kidney Disease: Yes Hx Kidney Stones: Yes (x3 years ago) - ENDOCRINE/METABOLIC Hx Endocrine Disorders: No - HEMATOLOGICAL/ONCOLOGICAL Hx Anemia: Yes Hx Human Immunodeficiency Virus (HIV): No - INTEGUMENTARY Hx Dermatological Problems: No - MUSCULOSKELETAL/RHEUMATOLOGICAL Hx Arthritis: Yes (BACK) - GASTROINTESTINAL Hx Gastrointestinal Disorders: Yes - GENITOURINARY/GYNECOLOGICAL Hx Genitourinary Disorders: Yes Hx Incontinence: Yes Hx Urinary Tract Infection: Yes (Recurrent) Other/Comment: 2wF to drainage bag intact - PSYCHIATRIC Hx Anxiety: Yes Hx Depression: Yes - SURGICAL HISTORY Hx Surgeries: Yes Other/Comment: cysto with removal of stent 05/19/16- kidney stones - ANESTHESIA Hx Anesthesia: Yes Hx Anesthesia Reactions: No Hx Malignant Hyperthermia: No Meds Allergies/Adverse Reactions: Allergies Allergy/AdvReac Type Severity Reaction Status Date / Time cefazolin Allergy RASH, Verified 05/03/18 20:02 ITCHINESS - Medications Medications: Current Medications Vancomycin HCl 1 gm/ Sodium (Chloride) 250 mls @ 166.667 mls/hr IVPB DAILY [facility]; Protocol Physical Exam - Constitutional Appears: No Acute Distress - Head Exam Head Exam: ATRAUMATIC, NORMAL INSPECTION, NORMOCEPHALIC - Eye Exam Eye Exam: Normal appearance Pupil Exam: NORMAL ACCOMODATION, PERRL - ENT Exam ENT Exam: Mucous Membranes Dry, Normal External Ear Exam - Neck Exam Neck exam: Positive for: Full Rom, Normal Inspection. Negative for: Lymphadenopathy, Tenderness - Respiratory Exam Respiratory Exam: Clear to Auscultation Bilateral. absent: Rales, Rhonchi, Whee zes - Cardiovascular Exam Cardiovascular Exam: REGULAR RHYTHM, RRR, +S1, +S2 - GI/Abdominal Exam GI & Abdominal Exam: Normal Bowel Sounds, Soft. absent: Mass, Organomegaly - Rectal Exam Rectal Exam: Deferred - Extremities Exam Additional comments: No edema - Back Exam Back exam: NORMAL INSPECTION. absent: CVA tenderness (L), CVA tenderness (R) - Neurological Exam Neurological exam: Reflexes Normal Additional comments: Post ictal, Sedated from the Ativan. Moves the right upper extremity, no facial droop. - Psychiatric Exam Additional comments: Sedated from the Ativan given - Skin Skin Exam: Dry, Intact, Normal Color, Warm Results - Vital Signs Recent Vital Signs: Last Vital Signs Temp 98.6 F 05/03/18 22:53 Pulse 114 H 05/03/18 19:58 Resp 18 05/03/18 19:58 BP 115/84 05/03/18 20:06 Pulse Ox 98 05/03/18 23:09 - Labs Result Diagrams: 05/03/18 20:02 05/03/18 20:02 Labs: Laboratory Results - last 24 hr 05/03/18 05/03/18 05/03/18 20:02 20:02 20:02 WBC 9.4 RBC 4.83 Hgb 14.6 Hct 44.3 MCV 91.7 MCH 30.2 MCHC 32.9 L RDW 13.6 Plt Count 298 D MPV 7.0 L Neut % (Auto) 53.7 Lymph % (Auto) 30.8 [place] % (Auto) 11.2 H Eos % (Auto) 3.8 Baso % (Auto) 0.5 Neut # (Auto) 5.0 Lymph # (Auto) 2.9 [place] # (Auto) 1.1 H Eos # (Auto) 0.4 Baso # (Auto) 0.0 PT 11.9 INR 1.1 APTT 34.9 pO2 VBG pH VBG pCO2 VBG HCO3 VBG Total CO2 VBG O2 Sat (Calc) VBG Base Excess VBG Potassium Glucose Lactate FiO2 Sodium 141 Potassium 3.8 Chloride 104 Carbon Dioxide 30 Anion Gap 11 BUN 13 Creatinine 0.5 L Est GFR ( Amer) > 60 Est GFR (Non-Af Amer) > 60 Random Glucose 103 Calcium 9.0 Phosphorus 4.0 Magnesium 1.8 Venous Blood Potassium Urine Color Urine Clarity Urine pH Ur Specific [place] Urine Protein Urine Glucose (UA) Urine Ketones Urine Blood Urine Nitrate Urine Bilirubin Urine Urobilinogen Ur Leukocyte Esterase Urine RBC (Auto) Urine WBC Clumps (Auto) Urine Microscopic WBC Urine Bacteria 05/03/18 05/03/18 20:02 20:20 WBC RBC Hgb Hct MCV MCH MCHC RDW Plt Count MPV Neut % (Auto) Lymph % (Auto) [place] % (Auto) Eos % (Auto) Baso % (Auto) Neut # (Auto) Lymph # (Auto) [place] # (Auto) Eos # (Auto) Baso # (Auto) PT INR APTT pO2 104 H VBG pH 7.26 L VBG pCO2 74 H* VBG HCO3 27.8 VBG Total CO2 35.5 H VBG O2 Sat (Calc) 99.9 H VBG Base Excess 3.7 H VBG Potassium 3.8 Glucose 105 Lactate 1.8 FiO2 21.0 Sodium 140.0 Potassium Chloride 104.0 Carbon Dioxide Anion Gap BUN Creatinine Est GFR ( Amer) Est GFR (Non-Af Amer) Random Glucose Calcium Phosphorus Magnesium Venous Blood Potassium 3.8 Urine Color [place] Urine Clarity Turbid Urine pH 5.0 Ur Specific [place] 1.018 Urine Protein 100 Urine Glucose (UA) Neg Urine Ketones Negative Urine Blood Small Urine Nitrate Positive H Urine Bilirubin Negative Urine Urobilinogen 0.2-1.0 Ur Leukocyte Esterase Large Urine RBC (Auto) 23 H Urine WBC Clumps (Auto) Occ H Urine Microscopic WBC 426 H Urine Bacteria Many H - EKG Data EKG comments: Cardiomegaly No infiltrates - Imaging and Cardiology Chest x-ray Status: Image reviewed by me Additional comment: Cardiomegaly Assessment & Plan - Assessment and Plan (Free Text) Assessment: #. Status Epilepticus #. UTI #. Multiple Sclerosis #. Hx of PE and DVT Plan: 52 years old male with hx of anxiety, Depression, Multiple Sclerosis, paraplegic, bed ridden and multiple admissions with Seizure where he had to be intubated and treated to control the seizure. He was brought to the Ed because he had a witnessed seizure of more than one hour. The EMS administered Ativan and Versed at th3e home but the seizure continued. In the ED he was given more Ativan, IV Keppra and Fosphenytoin. The seizure ceased in the ED #. Status Epilepticus - Consult Neurology Dr Pimentel - Keppra 1000mg was given in the ED. He will be given Keppra and Fosphenytoin IV until he is stable enough to tske mrfivsyion Orally. - Continue with [id number] IV BID - Fosphenytoin 100mg Q8H #. UTI sales associated - Meropenm #. Multiple Sclerosis with paraplegia and is bed bound - Baclofen/tecfidora #. Hx of PE and DVT - DVT Prophylaxis with lovenox #. Code Status Full - Date & Time Date: 05/03/18 Time: 23:53
[2018-05-04] MEDS ORDERED: Meropenem 1 GM in Sodium Chloride 0.9% 100 ML IVPB SCH (01:00)
[2018-05-04] MEDS: Dextrose 5%/0.9% NS 1,000 ML IV SCH ×2 (02:00→20:40)
[2018-05-04] MEDS: Fosphenytoin 100 mg/2 ml Inj IV SCH ×3 (02:00→18:05)
[2018-05-04 06:17] LABS: HEMOGLOBIN 13.6 g/dL (12.0-18.0); MEAN CELL VOLUME 91.1 fl (80.0-94.0); MEAN CORPUSCULAR HEMOGLOBIN 29.8 pg (27.0-31.0); MEAN CORPUSCULAR HGB CONC 32.7 g/dL (33.0-37.0); RBC 4.56 Mil/uL (4.40-5.90); RED CELL DISTRIBUTION WIDTH 13.8 % (11.5-14.5); WHITE BLOOD COUNT 13.2 K/uL (4.8-10.8)
[2018-05-04 06:24] LABS: BLOOD UREA NITROGEN 11 mg/dl (9-20); GFR NON-AFRICAN AMERICAN > 60
--- NOTE | 2018-05-04 07:41 | RAD ---
Date of service: 05/03/2018 HISTORY: Sepsis Patient COMPARISON: Comparison is made with 03/07/2018 FINDINGS: LUNGS: There are new opacities at the left lung base may represent atelectasis or scar tissue. The possibility of pneumonia is not totally excluded. PLEURA: Blunting of the left costophrenic angle and the possibility of small effusion is not totally excluded. CARDIOVASCULAR: Normal. OSSEOUS STRUCTURES: No significant abnormalities. VISUALIZED UPPER ABDOMEN: Normal. OTHER FINDINGS: None. IMPRESSION: New opacities at the left lower lobe which may represent atelectasis or infiltrate. Questionable trace left pleural effusion.
--- NOTE | 2018-05-04 08:06 | CP.PCM.CON ---
History of Present Illness - History of Present Illness History of Present Illness: 52 YOM with h/o MS and seizure disorders and many other comorbidities admitted with a hour long seizure off an on at home no SOB. Initially patient did not respond to ativan and versed but seizure subsided when give IV keppra and fosp henytoin in ER, in ICU now, no seizures overnight and has been awake and talking, vitals has been stable, No fever, no sob, no abdominal pain. Review of Systems - Review of Systems Systems not reviewed;Unavailable: Altered Mental Status - Constitutional Constitutional: Weakness - EENT Eyes: As Per HPI Nose/Mouth/Throat: As Per HPI - Cardiovascular Cardiovascular: As Per HPI - Respiratory Respiratory: As Per HPI - Gastrointestinal Gastrointestinal: As Per HPI Past Patient History - Infectious Disease Hx of Infectious Diseases: None - Tetanus Immunizations Tetanus Immunization: Unknown - Past Medical History & Family History Past Medical History?: Yes - Past Social History Smoking Status: Never Smoked Alcohol: None Drugs: Denies Home Situation {Lives}: With Family - CARDIAC Hx Hypercholesterolemia: Yes Hx Hypertension: Yes Hx Peripheral Edema: Yes (B/L LE no longer swollen) - PULMONARY Hx Chronic Obstructive Pulmonary Disease (COPD): Yes Hx Pneumonia: Yes Hx Pulmonary Embolism: Yes (hx of DVT) - NEUROLOGICAL Hx Dementia: Yes Hx Multiple Sclerosis: Yes Hx Seizures: Yes - HEENT Hx HEENT Problems: Yes (Poor vision, L eye) - RENAL Hx Chronic Kidney Disease: Yes Hx Kidney Stones: Yes (x3 years ago) - ENDOCRINE/METABOLIC Hx Endocrine Disorders: No - HEMATOLOGICAL/ONCOLOGICAL Hx Anemia: Yes Hx Human Immunodeficiency Virus (HIV): No - INTEGUMENTARY Hx Dermatological Problems: No - MUSCULOSKELETAL/RHEUMATOLOGICAL Hx Arthritis: Yes (BACK) - GASTROINTESTINAL Hx Gastrointestinal Disorders: Yes - GENITOURINARY/GYNECOLOGICAL Hx Genitourinary Disorders: Yes Hx Incontinence: Yes Hx Urinary Tract Infection: Yes (Recurrent) Other/Comment: 2wF to drainage bag intact - PSYCHIATRIC Hx Anxiety: Yes Hx Depression: Yes - SURGICAL HISTORY Hx Surgeries: Yes Other/Comment: cysto with removal of stent 05/19/16- kidney stones - ANESTHESIA Hx Anesthesia: Yes Hx Anesthesia Reactions: No Hx Malignant Hyperthermia: No Meds Allergies/Adverse Reactions: Allergies Allergy/AdvReac Type Severity Reaction Status Date / Time cefazolin Allergy RASH, Verified 05/03/18 20:02 ITCHINESS - Medications Medications: Current Medications Enoxaparin Sodium (Lovenox) 40 mg SC DAILY TIMOTHY; Protocol Fosphenytoin Sodium (Cerebyx) 100 mg IV Q8 TIMOTHY Last Admin: 05/04/18 02:00 Dose: 100 mg Vancomycin HCl 1 gm/ Sodium (Chloride) 250 mls @ 166.667 mls/hr IVPB DAILY TIMOTHY; Protocol Levetiracetam 1,500 mg/ Sodium (Chloride) 115 mls @ 215 mls/hr IVPB Q12 TIMOTHY Dextrose/Sodium Chloride (Dextrose 5%/0.9% Ns 1000 Ml) 1,000 mls @ 75 mls/hr IV [id number] TIMOTHY Stop: 05/05/18 00:46 Last Admin: 05/04/18 02:00 Dose: 75 mls/hr Lorazepam (Ativan) 2 mg IVP Q3 PRN PRN Reason: Seizure activity Physical Exam - Constitutional Appears: Non-toxic, Agitated - Head Exam Head Exam: ATRAUMATIC - Eye Exam Eye Exam: Normal appearance Pupil Exam: PERRL - ENT Exam ENT Exam: Mucous Membranes Moist - Neck Exam Neck exam: Positive for: Normal Inspection - Respiratory Exam Respiratory Exam: NORMAL BREATHING PATTERN - Exam External exam: NORMAL EXTERNAL EXAM Results - Vital Signs Recent Vital Signs: Last Vital Signs Temp 98.2 F 05/04/18 04:00 Pulse 81 05/04/18 06:56 Resp 17 05/04/18 06:56 BP 116/74 05/04/18 06:56 Pulse Ox 99 05/04/18 06:56 - Labs Result Diagrams: 05/04/18 05:30 05/04/18 05:30 Labs: Laboratory Results - last 24 hr 05/03/18 05/03/18 05/03/18 20:02 20:02 20:02 WBC 9.4 RBC 4.83 Hgb 14.6 Hct 44.3 MCV 91.7 MCH 30.2 MCHC 32.9 L RDW 13.6 Plt Count 298 D MPV 7.0 L Neut % (Auto) 53.7 Lymph % (Auto) 30.8 [place] % (Auto) 11.2 H Eos % (Auto) 3.8 Baso % (Auto) 0.5 Neut # (Auto) 5.0 Lymph # (Auto) 2.9 [place] # (Auto) 1.1 H Eos # (Auto) 0.4 Baso # (Auto) 0.0 PT 11.9 INR 1.1 APTT 34.9 pO2 VBG pH VBG pCO2 VBG HCO3 VBG Total CO2 VBG O2 Sat (Calc) VBG Base Excess VBG Potassium Glucose Lactate FiO2 Sodium 141 Potassium 3.8 Chloride 104 Carbon Dioxide 30 Anion Gap 11 BUN 13 Creatinine 0.5 L Est GFR ( Amer) > 60 Est GFR (Non-Af Amer) > 60 Random Glucose 103 Calcium 9.0 Phosphorus 4.0 Magnesium 1.8 Venous Blood Potassium Urine Color Urine Clarity Urine pH Ur Specific [place] Urine Protein Urine Glucose (UA) Urine Ketones Urine Blood Urine Nitrate Urine Bilirubin Urine Urobilinogen Ur Leukocyte Esterase Urine RBC (Auto) Urine WBC Clumps (Auto) Urine Microscopic WBC Urine Bacteria 05/03/18 05/03/18 05/04/18 20:02 20:20 05:30 WBC 13.2 H RBC 4.56 Hgb 13.6 Hct 41.5 MCV 91.1 MCH 29.8 MCHC 32.7 L RDW 13.8 Plt Count 282 MPV Neut % (Auto) Lymph % (Auto) [place] % (Auto) Eos % (Auto) Baso % (Auto) Neut # (Auto) Lymph # (Auto) [place] # (Auto) Eos # (Auto) Baso # (Auto) PT INR APTT pO2 104 H VBG pH 7.26 L VBG pCO2 74 H* VBG HCO3 27.8 VBG Total CO2 35.5 H VBG O2 Sat (Calc) 99.9 H VBG Base Excess 3.7 H VBG Potassium 3.8 Glucose 105 Lactate 1.8 FiO2 21.0 Sodium 140.0 Potassium Chloride 104.0 Carbon Dioxide Anion Gap BUN Creatinine Est GFR ( Amer) Est GFR (Non-Af Amer) Random Glucose Calcium Phosphorus Magnesium Venous Blood Potassium 3.8 Urine Color [place] Urine Clarity Turbid Urine pH 5.0 Ur Specific [place] 1.018 Urine Protein 100 Urine Glucose (UA) Neg Urine Ketones Negative Urine Blood Small Urine Nitrate Positive H Urine Bilirubin Negative Urine Urobilinogen 0.2-1.0 Ur Leukocyte Esterase Large Urine RBC (Auto) 23 H Urine WBC Clumps (Auto) Occ H Urine Microscopic WBC 426 H Urine Bacteria Many H 05/04/18 05:30 WBC RBC Hgb Hct MCV MCH MCHC RDW Plt Count MPV Neut % (Auto) Lymph % (Auto) [place] % (Auto) Eos % (Auto) Baso % (Auto) Neut # (Auto) Lymph # (Auto) [place] # (Auto) Eos # (Auto) Baso # (Auto) PT INR APTT pO2 VBG pH VBG pCO2 VBG HCO3 VBG Total CO2 VBG O2 Sat (Calc) VBG Base Excess VBG Potassium Glucose Lactate FiO2 Sodium 140 Potassium 4.0 Chloride 104 Carbon Dioxide 29 Anion Gap 11 BUN 11 Creatinine 0.4 L Est GFR ( Amer) > 60 Est GFR (Non-Af Amer) > 60 Random Glucose 91 Calcium 9.0 Phosphorus Magnesium Venous Blood Potassium Urine Color Urine Clarity Urine pH Ur Specific [place] Urine Protein Urine Glucose (UA) Urine Ketones Urine Blood Urine Nitrate Urine Bilirubin Urine Urobilinogen Ur Leukocyte Esterase Urine RBC (Auto) Urine WBC Clumps (Auto) Urine Microscopic WBC Urine Bacteria Assessment & Plan - Assessment and Plan (Free Text) Assessment: Assessment: #. Status Epilepticus : seizure controlled on current meds, #. UTI #. Multiple Sclerosis #. Hx of PE and DVT Plan: 52 YOM , bedridden due to MS, paraplegia with multiple admission in the past with Seizure where he had to be intubated and treated to control the seizure,was brought to the Ed because he had a witnessed seizure of more than one hour. The EMS administered Ativan and Versed at th3e home but the seizure continued. In the ED he was given more Ativan, IV Keppra and Fosphenytoin. The seizure ceased in the ED #. Status Epilepticus : On Keppra and dilatantin IV, failed swallow evaluation, will repeat. - Consult Neurology Dr Pimentel -- Continue with [id number] IV BID - Fosphenytoin 100mg Q8H #. UTI sales associated - Meropenm: was given, pt is also on vancom which will be DCed, ID has been consulted. #. Multiple Sclerosis with paraplegia and is bed bound - Baclofen/tecfidora #. Hx of PE and DVT - DVT Prophylaxis with lovenox #. Code Status Full
[2018-05-04] MEDS: levETIRAcetam 1,500 MG in Sodium Chloride 0.9% 100 ML IVPB SCH ×2 (09:27→20:42)
[2018-05-04] MEDS: Enoxaparin 40 mg Syringe SC SCH (09:27)
--- NOTE | 2018-05-04 10:24 | CARD ---
APPROVED REPORT Date of service: 05/03/2018 EKG Measurement Heart [id number] <Conclusion> Normal sinus rhythm Left anterior fascicular block Abnormal ECG
--- NOTE | 2018-05-04 10:49 | CT ---
Date of service: 05/03/2018 PROCEDURE: CT HEAD WITHOUT CONTRAST. HISTORY: seizure COMPARISON: None available. TECHNIQUE: Axial computed tomography images were obtained through the head/brain without intravenous contrast. Radiation dose: Total exam DLP = 814.25 mGy-cm. This CT exam was performed using one or more of the following dose reduction techniques: Automated exposure control, adjustment of the mA and/or kV according to patient size, and/or use of iterative reconstruction technique. FINDINGS: HEMORRHAGE: No intracranial hemorrhage. BRAIN: No mass effect or edema. Periventricular foci of hypodensity noted likely represent chronic microvascular white matter ischemic disease. The possibility of chronic lacunar infarcts is not totally excluded. Moderate to extensive atrophy and volume loss noted. VENTRICLES: The ventricles are dilated out of proportion of the dilated sulci suggestive of hydrocephalus. The 3rd ventricle is also dilated. The 4th ventricle is slightly prominent in size. CALVARIUM: Unremarkable. PARANASAL SINUSES: Unremarkable as visualized. No significant inflammatory changes. MASTOID AIR CELLS: Unremarkable as visualized. No inflammatory changes. OTHER FINDINGS: None. IMPRESSION: No evidence of acute intracranial hemorrhage mass effect or midline shift. Moderate to severe volume loss and white matter changes suggestive of chronic small vessels ischemic disease. Dilated ventricles suspicious for hydrocephalus. Preliminary report was submitted to the referring physician on 05/03/2018 at 9:31 p.m..
[2018-05-04] MEDS ORDERED: Gadodiamide 287 MG/ML VIAL (15ML) IV ONE (11:32)
--- NOTE | 2018-05-04 11:46 | CP.PCM.HP ---
History of Present Illness - History of Present Illness History of Present Illness: 52 yo male with past medical hx Dementia, Depression, Deep Vein Thrombosis, Kidney Stones, Multiple Sclerosis with severe neuro deficit paraplegia bed ridding since 2008, Peripheral Edema , Pneumonia, Pulmonary Embolism , Chronic Kidney Disease, Seizures, recurrent UTI and sepsis presented in ER with status epilepticus.. A UA reveled UTI. Patient has hx of status epilepticus and sepsis with recurrent UTI. At present post ictal. Appears that he has a deficit in the left upper arm. This condition is difficult access clinically because the patient is lethargic. He still presents same clonic movements. Will follow MRI of the brain. Present on Admission - Present on Admission Any Indicators Present on Admission: No Review of Systems - Constitutional Constitutional: As Per HPI - Cardiovascular Cardiovascular: As Per HPI - Respiratory Respiratory: As Per HPI - Gastrointestinal Gastrointestinal: As Per HPI - Musculoskeletal Musculoskeletal: As Per HPI - Neurological Neurological: As Per HPI - Psychiatric Psychiatric: As Per HPI Past Patient History - Infectious Disease Hx of Infectious Diseases: None - Tetanus Immunizations Tetanus Immunization: Unknown - Past Medical History & Family History Past Medical History?: Yes - Past Social History Smoking Status: Never Smoked Alcohol: None Drugs: Denies Home Situation {Lives}: With Family - CARDIAC Hx Hypercholesterolemia: Yes Hx Hypertension: Yes Hx Peripheral Edema: Yes (B/L LE no longer swollen) - PULMONARY Hx Chronic Obstructive Pulmonary Disease (COPD): Yes Hx Pneumonia: Yes Hx Pulmonary Embolism: Yes (hx of DVT) - NEUROLOGICAL Hx Dementia: Yes Hx Multiple Sclerosis: Yes Hx Seizures: Yes - HEENT Hx HEENT Problems: Yes (Poor vision, L eye) - RENAL Hx Chronic Kidney Disease: Yes Hx Kidney Stones: Yes (x3 years ago) - ENDOCRINE/METABOLIC Hx Endocrine Disorders: No - HEMATOLOGICAL/ONCOLOGICAL Hx Anemia: Yes Hx Human Immunodeficiency Virus (HIV): No - INTEGUMENTARY Hx Dermatological Problems: No - MUSCULOSKELETAL/RHEUMATOLOGICAL Hx Arthritis: Yes (BACK) - GASTROINTESTINAL Hx Gastrointestinal Disorders: Yes - GENITOURINARY/GYNECOLOGICAL Hx Genitourinary Disorders: Yes Hx Incontinence: Yes Hx Urinary Tract Infection: Yes (Recurrent) Other/Comment: 2wF to drainage bag intact - PSYCHIATRIC Hx Anxiety: Yes Hx Depression: Yes - SURGICAL HISTORY Hx Surgeries: Yes Other/Comment: cysto with removal of stent 05/19/16- kidney stones - ANESTHESIA Hx Anesthesia: Yes Hx Anesthesia Reactions: No Hx Malignant Hyperthermia: No Meds Allergies/Adverse Reactions: Allergies Allergy/AdvReac Type Severity Reaction Status Date / Time cefazolin Allergy RASH, Verified 05/03/18 20:02 ITCHINESS Physical Exam - Constitutional Appears: Chronically Ill Additional comments: lethargic - Head Exam Head Exam: NORMOCEPHALIC Additional comments: same superficial scratches in the lt frontal area not bleed not ulceration no open wounds - Eye Exam Eye Exam: Normal appearance - Neck Exam Neck exam: Positive for: Normal Inspection - Respiratory Exam Respiratory Exam: Clear to Auscultation Bilateral - Cardiovascular Exam Cardiovascular Exam: REGULAR RHYTHM, +S1, +S2 - GI/Abdominal Exam GI & Abdominal Exam: Normal Bowel Sounds - Extremities Exam Extremities exam: Positive for: normal inspection - Neurological Exam Additional comments: post ictal lethargic. - Psychiatric Exam Additional comments: lethargic - Skin Skin Exam: Rash Additional comments: as above. Results - Vital Signs Recent Vital Signs: Last Vital Signs Temp 98.6 F 05/04/18 08:00 Pulse 111 H 05/04/18 08:00 Resp 14 05/04/18 08:00 BP 126/90 05/04/18 08:00 Pulse Ox 99 05/04/18 08:00 - Labs Result Diagrams: 05/04/18 05:30 05/04/18 05:30 Labs: Laboratory Results - last 24 hr 05/03/18 05/03/18 05/03/18 20:02 20:02 20:02 WBC 9.4 RBC 4.83 Hgb 14.6 Hct 44.3 MCV 91.7 MCH 30.2 MCHC 32.9 L RDW 13.6 Plt Count 298 D MPV 7.0 L Neut % (Auto) 53.7 Lymph % (Auto) 30.8 Real % (Auto) 11.2 H Eos % (Auto) 3.8 Baso % (Auto) 0.5 Neut # (Auto) 5.0 Lymph # (Auto) 2.9 Real # (Auto) 1.1 H Eos # (Auto) 0.4 Baso # (Auto) 0.0 PT 11.9 INR 1.1 APTT 34.9 pO2 VBG pH VBG pCO2 VBG HCO3 VBG Total CO2 VBG O2 Sat (Calc) VBG Base Excess VBG Potassium Glucose Lactate FiO2 Sodium 141 Potassium 3.8 Chloride 104 Carbon Dioxide 30 Anion Gap 11 BUN 13 Creatinine 0.5 L Est GFR ( Amer) > 60 Est GFR (Non-Af Amer) > 60 Random Glucose 103 Calcium 9.0 Phosphorus 4.0 Magnesium 1.8 Venous Blood Potassium Urine Color Urine Clarity Urine pH Ur Specific [place] Urine Protein Urine Glucose (UA) Urine Ketones Urine Blood Urine Nitrate Urine Bilirubin Urine Urobilinogen Ur Leukocyte Esterase Urine RBC (Auto) Urine WBC Clumps (Auto) Urine Microscopic WBC Urine Bacteria 05/03/18 05/03/18 05/04/18 20:02 20:20 05:30 WBC 13.2 H RBC 4.56 Hgb 13.6 Hct 41.5 MCV 91.1 MCH 29.8 MCHC 32.7 L RDW 13.8 Plt Count 282 MPV Neut % (Auto) Lymph % (Auto) Real % (Auto) Eos % (Auto) Baso % (Auto) Neut # (Auto) Lymph # (Auto) Real # (Auto) Eos # (Auto) Baso # (Auto) PT INR APTT pO2 104 H VBG pH 7.26 L VBG pCO2 74 H* VBG HCO3 27.8 VBG Total CO2 35.5 H VBG O2 Sat (Calc) 99.9 H VBG Base Excess 3.7 H VBG Potassium 3.8 Glucose 105 Lactate 1.8 FiO2 21.0 Sodium 140.0 Potassium Chloride 104.0 Carbon Dioxide Anion Gap BUN Creatinine Est GFR ( Amer) Est GFR (Non-Af Amer) Random Glucose Calcium Phosphorus Magnesium Venous Blood Potassium 3.8 Urine Color [place] Urine Clarity Turbid Urine pH 5.0 Ur Specific [place] 1.018 Urine Protein 100 Urine Glucose (UA) Neg Urine Ketones Negative Urine Blood Small Urine Nitrate Positive H Urine Bilirubin Negative Urine Urobilinogen 0.2-1.0 Ur Leukocyte Esterase Large Urine RBC (Auto) 23 H Urine WBC Clumps (Auto) Occ H Urine Microscopic WBC 426 H Urine Bacteria Many H 05/04/18 05:30 WBC RBC Hgb Hct MCV MCH MCHC RDW Plt Count MPV Neut % (Auto) Lymph % (Auto) Real % (Auto) Eos % (Auto) Baso % (Auto) Neut # (Auto) Lymph # (Auto) Real # (Auto) Eos # (Auto) Baso # (Auto) PT INR APTT pO2 VBG pH VBG pCO2 VBG HCO3 VBG Total CO2 VBG O2 Sat (Calc) VBG Base Excess VBG Potassium Glucose Lactate FiO2 Sodium 140 Potassium 4.0 Chloride 104 Carbon Dioxide 29 Anion Gap 11 BUN 11 Creatinine 0.4 L Est GFR ( Amer) > 60 Est GFR (Non-Af Amer) > 60 Random Glucose 91 Calcium 9.0 Phosphorus Magnesium Venous Blood Potassium Urine Color Urine Clarity Urine pH Ur Specific [place] Urine Protein Urine Glucose (UA) Urine Ketones Urine Blood Urine Nitrate Urine Bilirubin Urine Urobilinogen Ur Leukocyte Esterase Urine RBC (Auto) Urine WBC Clumps (Auto) Urine Microscopic WBC Urine Bacteria Assessment & Plan (1) Change in mental status Status: Acute Onset Date: ~02/20/17 (2) DVT prophylaxis Status: Acute (3) Excoriation Status: Acute (4) Lethargy Status: Acute (5) Sepsis Status: Acute (6) UTI (urinary tract infection) Status: Acute (7) UTI (urinary tract infection) with pyuria Status: Acute Onset Date: ~02/19/17 (8) Depression Status: Chronic Priority: Medium (9) Multiple sclerosis Status: Chronic (10) Nephrolithiasis Status: Chronic (11) Seizure disorder Status: Chronic Priority: Medium (12) Post-ictal state Status: Acute (13) Tonic-clonic seizure Status: Acute - Assessment and Plan (Free Text) Plan: As per orders.
[2018-05-04] MEDS ORDERED: Azithromycin 500 MG in Sodium Chloride 0.9% 250 ML IVPB SCH (12:00)
--- NOTE | 2018-05-04 14:14 | MRI ---
Date of service: 05/04/2018 PROCEDURE: MRI BRAIN WITH AND WITHOUT CONTRAST HISTORY: left arm weakness COMPARISON: Comparison is made with the previous CT of the head dated 05/03/2018 TECHNIQUE: Multiplanar, multisequence MR images of the brain were obtained with and without intravenous contrast enhancement. FINDINGS: HEMORRHAGE: None DWI: No evidence of an acute or early subacute infarction. BRAIN PARENCHYMA: No mass,mass effect or edema. Moderate atrophy is again noted. Moderate to extensive periventricular white matter hyperintense T2 and FLAIR signal noted likely represent chronic microvascular ischemic disease. ENHANCEMENT: No abnormal intracranial enhancement. VENTRICLES: The of lateral and 3rd ventricles are moderately dilated. CRANIUM: Unremarkable. ORBITS: Grossly unremarkable. PARANASAL SINUSES/MASTOIDS: Clear VASCULAR SYSTEM: Skull base flow voids intact. OTHER FINDINGS: None . IMPRESSION: No evidence of acute infarct. No evidence of intracranial hemorrhage mass effect or midline shift. Moderate volume loss and moderate chronic microvascular white matter ischemic disease. Moderately dilated lateral and 3rd ventricles again noted.
--- NOTE | 2018-05-04 15:38 | CP.PCM.CON ---
History of Present Illness - History of Present Illness History of Present Illness: Neurology Consultation Note: Mr. Moody is a 52-year-old man with a past medical history of Dementia, Depression, Deep Vein Thrombosis, Kidney Stones, Multiple Sclerosis (bedbound since [address] Vivas), Peripheral Edema , Pneumonia, Pulmonary Embolism , Chronic Kidney Disease, Seizures, recurrent UTI and sepsis, who developed multiple focal and generalized seizures, essentially status epilepticus that was refractory to Ativan, but eventually he responded to it with Keppra and Dilantin loading. Currently, the patient continues to be somnolent and difficult to arouse. His is at bedside and provides some of the history. Review of Systems - Review of Systems Systems not reviewed;Unavailable: Altered Mental Status Past Patient History - Infectious Disease Hx of Infectious Diseases: None - Tetanus Immunizations Tetanus Immunization: Unknown - Past Medical History & Family History Past Medical History?: Yes - Past Social History Smoking Status: Never Smoked Alcohol: None Drugs: Denies Home Situation {Lives}: With Family - CARDIAC Hx Hypercholesterolemia: Yes Hx Hypertension: Yes Hx Peripheral Edema: Yes (B/L LE no longer swollen) - PULMONARY Hx Chronic Obstructive Pulmonary Disease (COPD): Yes Hx Pneumonia: Yes Hx Pulmonary Embolism: Yes (hx of DVT) - NEUROLOGICAL Hx Dementia: Yes Hx Multiple Sclerosis: Yes Hx Seizures: Yes - HEENT Hx HEENT Problems: Yes (Poor vision, L eye) - RENAL Hx Chronic Kidney Disease: Yes Hx Kidney Stones: Yes (x3 years ago) - ENDOCRINE/METABOLIC Hx Endocrine Disorders: No - HEMATOLOGICAL/ONCOLOGICAL Hx Anemia: Yes Hx Human Immunodeficiency Virus (HIV): No - INTEGUMENTARY Hx Dermatological Problems: No - MUSCULOSKELETAL/RHEUMATOLOGICAL Hx Arthritis: Yes (BACK) - GASTROINTESTINAL Hx Gastrointestinal Disorders: Yes - GENITOURINARY/GYNECOLOGICAL Hx Genitourinary Disorders: Yes Hx Incontinence: Yes Hx Urinary Tract Infection: Yes (Recurrent) Other/Comment: 2wF to drainage bag intact - PSYCHIATRIC Hx Anxiety: Yes Hx Depression: Yes - SURGICAL HISTORY Hx Surgeries: Yes Other/Comment: cysto with removal of stent 05/19/16- kidney stones - ANESTHESIA Hx Anesthesia: Yes Hx Anesthesia Reactions: No Hx Malignant Hyperthermia: No Meds Allergies/Adverse Reactions: Allergies Allergy/AdvReac Type Severity Reaction Status Date / Time cefazolin Allergy RASH, Verified 05/03/18 20:02 ITCHINESS - Medications Medications: Current Medications Enoxaparin Sodium (Lovenox) 40 mg SC DAILY TIMOTHY; Protocol Last Admin: 05/04/18 09:27 Dose: 40 mg Fosphenytoin Sodium (Cerebyx) 100 mg IV Q8 TIMOTHY Last Admin: 05/04/18 13:30 Dose: 100 mg Vancomycin HCl 1 gm/ Sodium (Chloride) 250 mls @ 166.667 mls/hr IVPB DAILY TIMOTHY; Protocol Last Admin: 05/04/18 09:28 Dose: 166.667 mls/hr Levetiracetam 1,500 mg/ Sodium (Chloride) 115 mls @ 215 mls/hr IVPB Q12 TIMOTHY Last Admin: 05/04/18 09:27 Dose: 215 mls/hr Dextrose/Sodium Chloride (Dextrose 5%/0.9% Ns 1000 Ml) 1,000 mls @ 75 mls/hr IV .[id number] TIMOTHY Stop: 05/05/18 00:46 Last Admin: 05/04/18 02:00 Dose: 75 mls/hr Azithromycin 500 mg/ Sodium (Chloride) 250 mls @ 250 mls/hr IVPB DAILY TIMOTHY; Protocol Lorazepam (Ativan) 2 mg IVP Q3 PRN PRN Reason: Seizure activity Physical Exam - Constitutional Appears: Chronically Ill - Head Exam Head Exam: ATRAUMATIC, NORMAL INSPECTION, NORMOCEPHALIC - Eye Exam Eye Exam: EOMI, Normal appearance, PERRL - ENT Exam ENT Exam: Mucous Membranes Moist, Normal Exam - Neck Exam Neck exam: Positive for: Normal Inspection - Respiratory Exam Respiratory Exam: Clear to Auscultation Bilateral, NORMAL BREATHING PATTERN - Cardiovascular Exam Cardiovascular Exam: REGULAR RHYTHM, +S1, +S2 - GI/Abdominal Exam GI & Abdominal Exam: Normal Bowel Sounds, Soft. absent: Tenderness - Neurological Exam Additional comments: Difficult to arouse, pupils are responsive, grimaces to pain, corneals are present, normal respiration, withdraws on the right, but less so on the left. Results - Vital Signs Recent Vital Signs: Last Vital Signs Temp 98.6 F 05/04/18 08:00 Pulse 78 05/04/18 12:00 Resp 19 05/04/18 12:00 BP 105/73 05/04/18 12:00 Pulse Ox 99 05/04/18 12:00 - Labs Result Diagrams: 05/04/18 05:30 05/04/18 05:30 Labs: Laboratory Results - last 24 hr 05/03/18 05/03/18 05/03/18 20:02 20:02 20:02 WBC 9.4 RBC 4.83 Hgb 14.6 Hct 44.3 MCV 91.7 MCH 30.2 MCHC 32.9 L RDW 13.6 Plt Count 298 D MPV 7.0 L Neut % (Auto) 53.7 Lymph % (Auto) 30.8 [place] % (Auto) 11.2 H Eos % (Auto) 3.8 Baso % (Auto) 0.5 Neut # (Auto) 5.0 Lymph # (Auto) 2.9 [place] # (Auto) 1.1 H Eos # (Auto) 0.4 Baso # (Auto) 0.0 PT 11.9 INR 1.1 APTT 34.9 pO2 VBG pH VBG pCO2 VBG HCO3 VBG Total CO2 VBG O2 Sat (Calc) VBG Base Excess VBG Potassium Glucose Lactate FiO2 Sodium 141 Potassium 3.8 Chloride 104 Carbon Dioxide 30 Anion Gap 11 BUN 13 Creatinine 0.5 L Est GFR ( Amer) > 60 Est GFR (Non-Af Amer) > 60 Random Glucose 103 Calcium 9.0 Phosphorus 4.0 Magnesium 1.8 Venous Blood Potassium Urine Color Urine Clarity Urine pH Ur Specific [place] Urine Protein Urine Glucose (UA) Urine Ketones Urine Blood Urine Nitrate Urine Bilirubin Urine Urobilinogen Ur Leukocyte Esterase Urine RBC (Auto) Urine WBC Clumps (Auto) Urine Microscopic WBC Urine Bacteria 05/03/18 05/03/18 05/04/18 20:02 20:20 05:30 WBC 13.2 H RBC 4.56 Hgb 13.6 Hct 41.5 MCV 91.1 MCH 29.8 MCHC 32.7 L RDW 13.8 Plt Count 282 MPV Neut % (Auto) Lymph % (Auto) [place] % (Auto) Eos % (Auto) Baso % (Auto) Neut # (Auto) Lymph # (Auto) [place] # (Auto) Eos # (Auto) Baso # (Auto) PT INR APTT pO2 104 H VBG pH 7.26 L VBG pCO2 74 H* VBG HCO3 27.8 VBG Total CO2 35.5 H VBG O2 Sat (Calc) 99.9 H VBG Base Excess 3.7 H VBG Potassium 3.8 Glucose 105 Lactate 1.8 FiO2 21.0 Sodium 140.0 Potassium Chloride 104.0 Carbon Dioxide Anion Gap BUN Creatinine Est GFR ( Amer) Est GFR (Non-Af Amer) Random Glucose Calcium Phosphorus Magnesium Venous Blood Potassium 3.8 Urine Color [place] Urine Clarity Turbid Urine pH 5.0 Ur Specific [place] 1.018 Urine Protein 100 Urine Glucose (UA) Neg Urine Ketones Negative Urine Blood Small Urine Nitrate Positive H Urine Bilirubin Negative Urine Urobilinogen 0.2-1.0 Ur Leukocyte Esterase Large Urine RBC (Auto) 23 H Urine WBC Clumps (Auto) Occ H Urine Microscopic WBC 426 H Urine Bacteria Many H 05/04/18 05:30 WBC RBC Hgb Hct MCV MCH MCHC RDW Plt Count MPV Neut % (Auto) Lymph % (Auto) [place] % (Auto) Eos % (Auto) Baso % (Auto) Neut # (Auto) Lymph # (Auto) [place] # (Auto) Eos # (Auto) Baso # (Auto) PT INR APTT pO2 VBG pH VBG pCO2 VBG HCO3 VBG Total CO2 VBG O2 Sat (Calc) VBG Base Excess VBG Potassium Glucose Lactate FiO2 Sodium 140 Potassium 4.0 Chloride 104 Carbon Dioxide 29 Anion Gap 11 BUN 11 Creatinine 0.4 L Est GFR ( Amer) > 60 Est GFR (Non-Af Amer) > 60 Random Glucose 91 Calcium 9.0 Phosphorus Magnesium Venous Blood Potassium Urine Color Urine Clarity Urine pH Ur Specific [place] Urine Protein Urine Glucose (UA) Urine Ketones Urine Blood Urine Nitrate Urine Bilirubin Urine Urobilinogen Ur Leukocyte Esterase Urine RBC (Auto) Urine WBC Clumps (Auto) Urine Microscopic WBC Urine Bacteria Assessment & Plan (1) Multiple sclerosis exacerbation Assessment and Plan: This could be a possible reason for the seizures; however, MRI does not show any enhancing lesions. Will continue tecfidera if the patient is able to swallow. Status: Chronic (2) Status epilepticus Assessment and Plan: Will continue current medications and obtain a continuous video EEG for further evaluation. Thank you for this consultation. Status: Resolved Priority: High
[2018-05-04 18:26] LABS: URINE BACTERIA OCC (<OCC); URINE BILIRUBIN NEGATIVE (NEGATIVE); URINE BLOOD SMALL (NEGATIVE); URINE CLARITY SLIGHTY-CLOUDY (Clear); URINE COLOR YELLOW (YELLOW); URINE GLUCOSE (UA) NEG (Normal); URINE LEUKOCYTE ESTERASE LARGE Leu/uL (Negative); URINE PROTEIN NEGATIVE (NEGATIVE); URINE UROBILINOGEN 0.2-1.0 mg/dL (0.2-1.0); WBC CLUMPS FEW /hpf
[2018-05-05] MEDS: Fosphenytoin 100 mg/2 ml Inj IV SCH ×2 (00:43→09:38)
[2018-05-05] MEDS ORDERED: Influenza Vaccine 60 MCG/0.5 ML SYR (3 yr & up) IM ONE (06:00)
--- NOTE | 2018-05-05 08:38 | CP.CCUPN ---
CCU Subjective - Physician Review Events Since Last Encounter (Free Text): 05/05/18 08:35 alert and awake, in no distress, on continuous EEG monitoring,, MRI done yesterday was negative for any new findings. CCU Objective - Vital Signs / Intake & Output Vital Signs (Last 4 hours): Vital Signs Temp Pulse Resp BP Pulse Ox 05/05/18 08:00 98.2 F 83 18 152/91 H 93 L 05/05/18 06:00 82 16 123/81 92 L Intake and Output (Last 8hrs): Intake & Output 05/04/18 05/05/18 05/05/18 22:59 06:59 14:59 Intake Total 725 825 Output Total 1400 500 Balance -675 325 Weight 193 lb Intake: IV 525 825 Intake, Piggyback 200 Oral 0 0 Output: Urine 1400 500 Urethral (Sales) 1400 500 - Physical Exam Narrative Physical Exam (Free Text): 05/05/18 08:37 P/E Neck: No JVD Lungs: No rochi, cracklles Abdomen: soft, non-tender Ext: No edema neuro: paraplegic, left arm weakness. - Medications Active Medications: Active Medications Generic Name Dose Route Start Last Admin Trade Name Freq PRN Reason Stop Dose Admin Enoxaparin Sodium 40 mg 05/04/18 09:00 05/04/18 09:27 Lovenox SC 40 mg DAILY TIMOTHY Administration Protocol Fosphenytoin Sodium 100 mg 05/04/18 01:00 05/05/18 00:43 Cerebyx IV 100 mg Q8 TIMOTHY Administration Vancomycin HCl 1 gm/ Sodium 250 mls @ 166.667 mls/hr 05/04/18 09:00 05/04/18 09:28 Chloride IVPB 166.667 mls/hr DAILY TIMOTHY Administration Protocol Levetiracetam 1,500 mg/ Sodium 115 mls @ 215 mls/hr 05/04/18 09:00 05/04/18 20:42 Chloride IVPB 215 mls/hr Q12 TIMOTHY Administration Azithromycin 500 mg/ Sodium 250 mls @ 250 mls/hr 05/04/18 12:00 05/04/18 15:48 Chloride IVPB 250 mls/hr DAILY TIMOTHY Administration Protocol Lorazepam 2 mg 05/04/18 00:26 Ativan IVP Q3 PRN Seizure activity - Patient Studies Lab Studies: Microbiology Studies 05/03/18 20:02 Blood Culture - Preliminary Blood NO GROWTH AFTER 24 HOURS Lab Studies 05/04/18 Range/Units 18:15 Urine Color Yellow (YELLOW) Urine Clarity Slighty-cloudy (Clear) Urine pH 6.0 (5.0-8.0) Ur Specific [place] 1.010 (1.003-1.030) Urine Protein Negative (NEGATIVE) mg/dL Urine Glucose (UA) Neg (Normal) mg/dL Urine Ketones Negative (NEGATIVE) mg/dL Urine Blood Small (NEGATIVE) Urine Nitrate Negative (NEGATIVE) Urine Bilirubin Negative (NEGATIVE) Urine Urobilinogen 0.2-1.0 (0.2-1.0) mg/dL Ur Leukocyte Esterase Large (Negative) [place]/uL Urine RBC (Auto) 8 H (0-3) /hpf Urine WBC Clumps (Auto) Few H (NONE) /hpf Urine Microscopic WBC 34 H (0-5) /hpf Urine Bacteria Occ H (<OCC) Laboratory Results - last 24 hr 05/04/18 18:15 Urine Color Yellow Urine Clarity Slighty-cloudy Urine pH 6.0 Ur Specific [place] 1.010 Urine Protein Negative Urine Glucose (UA) Neg Urine Ketones Negative Urine Blood Small Urine Nitrate Negative Urine Bilirubin Negative Urine Urobilinogen 0.2-1.0 Ur Leukocyte Esterase Large Urine RBC (Auto) 8 H Urine WBC Clumps (Auto) Few H Urine Microscopic WBC 34 H Urine Bacteria Occ H Assessment/Plan - Assessment and Plan (Free Text) Assessment: #. Status Epilepticus : seizure controlled on current meds, was evaluated by neurologist yesterday, MRI was negative for any new findings. #. UTI : urine culture was done , ordered, UA was C/W UTI #. Multiple Sclerosis #. Hx of PE and DVT Plan: #. Status Epilepticus : On Keppra and dilatantin IV, failed swallow evaluation, will repeat , swallow evaluation today and expected to pass and will start PO meds - Neurology consult by Dr Margarito hercules, -- Continue with [id number] IV BID - Fosphenytoin 100mg Q8H #. UTI sales associated : Urine culture sent, started ceftriaxone , DC vancomycina nd azithromycin -#. Multiple Sclerosis with paraplegia and is bed bound - Baclofen/tecfidora #. Hx of PE and DVT - DVT Prophylaxis with lovenox #. Code Status Full
[2018-05-05] MEDS ORDERED: Aztreonam 1 GM in Sodium Chloride 0.9% 100 ML IVPB SCH ×2 (09:00→17:00)
[2018-05-05] MEDS: levETIRAcetam 1,500 MG in Sodium Chloride 0.9% 100 ML IVPB SCH ×2 (09:38→21:05)
[2018-05-05] MEDS: Enoxaparin 40 mg Syringe SC SCH (09:39)
--- NOTE | 2018-05-05 11:25 | PCM.VEEG ---
Video EEG - Procedure Start Date: 05/04/18 Start Time: 17:25 End Date: 05/05/18 End Time: 07:35 Technical Summary: DATA ACQUISITION: This was a multichannel inpatient video-EEG, a minimum of 22 channels were uti lized, performed in accordance with recommendations specified by the [place] [employer] (Mary Ann Cleveland et al. ACNS Guideline 1: Minimum Technical Requirements for Performing Clinical Electroencephalography. Journal of Clinical Neurophysiology 2016;33:303-7). The 10-20 electrode placement system was utilized in accordance with guidelines detailed by the International Federation of Clinical Neurophysiology (Gurwinder Duvall et al. The Ten-Twenty Electrode System of the International Federation. Recommendations for the Practice of Clinical Neurophysiology: Guidelines of the International Federation of Clinical Physiology 1999; EEG Suppl. 52.). DATA REVIEW / SPIKE DETECTION / DIGITAL ANALYSIS: The entire EEG was scanned and reviewed. Synchronized audio and video recording were reviewed at the time of each alarm and whenever an abnormality or suspicious activity was noted. The entire recording was analyzed utilizing an automated digital spike and seizure analysis program and all automatic spike and seizure detections were manually reviewed. A compressed spectral array was displayed and reviewed alongside the raw EEG tracings. In addition, further analysis of the EEG was performed when abnormalities were identified, including montage changes, dipole source localization, and frequency band identification. Video portion of the study is necessary to correlate abnormal EEG activity with clinical behavior. This study was attended 24 hours per day. - Interpretation Description of the study: Indication; Epilepsy EEG Finding during wakefulness: During active states, the EEG was characterized by 14-25 Hz, 15-30 uV activity bilaterally in fronto-central regions. Resting wakefulness was characterized by a symmetric posterior dominant rhythm of 9 to 10 Hz, 30-50 uV, which was reactive to eye opening and closing. Drowsiness was associated with slow roving eye movements, slowing and fragmentation of the posterior dominant rhythm, and bilateral 4-7 Hz, 40-70 uV theta activity, sometimes with a shifting predominance. Hyperventilation and photic stimulation were not performed. EEG Finding during sleep: Light sleep was recorded and was characterized by fronto-central slowing at 5-7 H, 50-125 uV, sharp central vertex waves, bilateral sleep spindles, and K- complexes; shifting asymmetries were evident. Deeper stages of sleep were recorded and were characterized an increasing frequency of 1-4 Hz, 50-100 uV delta activity. REM sleep was also recorded and was characterized by mixed frequency (3-15 Hz) low voltage (< 20 uV) activity with clusters of rapid horizontal and vertical eye movements. There were no significant asymmetries noted during sleep. Interictal non-epileptiform abnormalities: None Interictal epileptiform abnormalities: None Ictal epileptiform abnormalities: None 2 PB activations, 18;24, and 5;32 AM, NO EEG changes probably accidental. Induction procedures: none - Impression Impression: This was a normal 24 hs Video EEG monitoring study. There were no seizures, no interictal activity. There was non specific bi temporal slowing seen. .
--- NOTE | 2018-05-05 13:25 | CP.PCM.PN ---
Subjective - Date & Time of Evaluation Date of Evaluation: 05/05/18 Time of Evaluation: 11:05 - Subjective Subjective: Patient confuse, at times in delirium and lethargic. Objective - Vital Signs/Intake and Output Vital Signs (last 24 hours): Temp Pulse Resp BP Pulse Ox 98.2 F 83 18 152/91 H 93 L 05/05/18 08:00 05/05/18 08:00 05/05/18 08:00 05/05/18 08:00 05/05/18 08:00 Intake and Output: 05/05/18 05/05/18 11:59 23:59 Intake Total 825 Output Total 500 Balance 325 - Medications Medications: Current Medications Enoxaparin Sodium (Lovenox) 40 mg SC DAILY TIMOTHY; Protocol Last Admin: 05/05/18 09:39 Dose: 40 mg Fosphenytoin Sodium (Cerebyx) 100 mg IV Q8 TIMOTHY Last Admin: 05/05/18 09:38 Dose: 100 mg Levetiracetam 1,500 mg/ Sodium (Chloride) 115 mls @ 215 mls/hr IVPB Q12 TIMOTHY Last Admin: 05/05/18 09:38 Dose: 215 mls/hr Aztreonam 1 gm/ Sodium (Chloride) 100 mls @ 100 mls/hr IVPB Q12 TIMOTHY; Protocol Last Admin: 05/05/18 10:46 Dose: 100 mls/hr Lorazepam (Ativan) 2 mg IVP Q3 PRN PRN Reason: Seizure activity - Labs Labs: 05/04/18 05:30 05/04/18 05:30 PT 11.9 Seconds (9.8-13.1) 05/03/18 20:02 INR 1.1 05/03/18 20:02 APTT 34.9 Seconds (25.6-37.1) 05/03/18 20:02 - Constitutional Appears: Confused, Chronically Ill - Head Exam Head Exam: ATRAUMATIC, NORMAL INSPECTION, NORMOCEPHALIC - Eye Exam Eye Exam: Normal appearance - ENT Exam ENT Exam: Mucous Membranes Moist - Neck Exam Neck Exam: Full ROM - Respiratory Exam Respiratory Exam: Decreased Breath Sounds - Cardiovascular Exam Cardiovascular Exam: REGULAR RHYTHM, +S1, +S2 - GI/Abdominal Exam GI & Abdominal Exam: Normal Bowel Sounds - Neurological Exam Neurological Exam: Altered, Awake - Psychiatric Exam Psychiatric exam: Anxious - Skin Skin Exam: Normal Color Assessment and Plan (1) Change in mental status Status: Acute (2) DVT prophylaxis Status: Acute (3) Excoriation Status: Acute (4) Lethargy Status: Acute (5) Sepsis Status: Acute (6) UTI (urinary tract infection) Status: Acute (7) UTI (urinary tract infection) with pyuria Status: Acute (8) Depression Status: Chronic (9) Multiple sclerosis Status: Chronic (10) Nephrolithiasis Status: Chronic (11) Seizure disorder Status: Chronic (12) Post-ictal state Status: Acute (13) Tonic-clonic seizure Status: Acute - Assessment and Plan (Free Text) Assessment: Continue present rx. Will follow CXR and xray shoulder
--- NOTE | 2018-05-05 14:15 | CP.PCM.CON ---
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, denies smoking, alcohol Allergies Cefazolin Meds reviewed Review of Systems - Review of Systems All systems: reviewed and no additional remarkable complaints except - Constitutional Constitutional: Anorexia - EENT Eyes: As Per HPI Ears: absent: As Per HPI, Decreased Hearing, Ear Discharge, Ear Pain, Tinnitus, Abnormal Hearing, Disequilibrium, Dizziness, Other Nose/Mouth/Throat: absent: As Per HPI, Epistaxis, Nasal Congestion, Nasal Discharge, Nasal Obstruction, Nasal Trauma, Nose Pain, Post Nasal Drip, Sinus Pain, Sinus Pressure, Bleeding Gums, Change in Voice, Dental Pain, Dry Mouth, Dysphagia, Halitosis, Hoarsness, Lip Swelling, Mouth Lesions, Mouth Pain, Odynophagia, Sore Throat, Throat Swelling, Tongue Swelling, Facial Pain, Neck Pain, Neck Mass, Other - Cardiovascular Cardiovascular: absent: As Per HPI, Acrocyanosis, Chest Pain, Chest Pain at Rest, Chest Pain with Activity, Claudication, Diaphoresis, Dyspnea, Dyspnea on Exertion, Edema, Irregular Heart Rhythm, Pain Radiating to Arm/Neck/Jaw, Leg Edema, Leg Ulcers, Lightheadedness, Orthopnea, Palpitations, Paroxysmal Nocturnal Dyspnea, Pedal Edema, Radiating Pain, Rapid Heart Rate, Slow Heart Rate, Syncope, Other - Respiratory Respiratory: absent: As Per HPI, Cough, Dyspnea, Hemoptysis, Dyspnea on Exertion, Wheezing, Snoring, Stridor, Pain on Inspiration, Chest Congestion, Excessive Mucous Production, Change in Mucous Color, Pain with Coughing, Other - Gastrointestinal Gastrointestinal: absent: As Per HPI, Abdominal Pain, Belching, Bloating, Change in Bowel Habits, Change in Stool Character, Coffee Ground Emesis, Constipation, Cramping, Diarrhea, Dyspepsia, Dysphagia, Early Satiety, Excessive Flatus, Fecal Incontinence, Heartburn, Hematemesis, Hematochezia, Loose Stools, Melena, Nausea, Odynophagia, Temesmus, Vomiting, Other - Genitourinary Genitourinary: As Per HPI - Musculoskeletal Musculoskeletal: As Per HPI - Integumentary Integumentary: absent: As Per HPI, Acne, Alopecia, Bleeding Lesions, Change in Hair, Change in Nails, Change in Pigmentation, Changing Lesions, Dry Skin, Erythema, Furuncle, Hirsutism, Lesions, New Lesions, Non-Healing Lesions, Photosensitivity, Pruritus, Rash, Skin Pain, Skin Ulcer, Sores, Striae, Swelling, Unusual Bruising, Wounds, Jaundice, Other - Neurological Neurological: As Per HPI - Psychiatric Psychiatric: absent: As Per HPI, Abnormal Sleep Pattern, Anhedonia, Anxiety, Auditory Hallucinations, Behavioral Changes, Change in Appetite, Change in Libido, Confusion, Depression, Difficulty Concentrating, Hallucinations, Homicidal Ideation, Hopelessness, Irritability, Memory Loss, Mood Swings, Panic Attacks, Paranoia, Suicidal Ideation, Visual Hallucinations, Tactile Hallucinations, Other - Endocrine Endocrine: absent: As Per HPI, Change in Body Appearance, Change in Libido, Cold Intolorance, Deepening of Voice, Excessive Sweating, Fatigue, Flushing, Heat Intolorance, Increase in Ring/Shoe/Hat Size, Palpitations, Polydipsia, Polyphagia, Polyuria, Other - Hematologic/Lymphatic Hematologic: absent: As Per HPI, Easy Bleeding, Easy Bruising, Lymphadenopathy, Other Past Patient History - Infectious Disease Hx of Infectious Diseases: None - Tetanus Immunizations Tetanus Immunization: Unknown - Past Medical History & Family History Past Medical History?: Yes - Past Social History Smoking Status: Never Smoked Alcohol: None Drugs: Denies Home Situation {Lives}: With Family - CARDIAC Hx Hypercholesterolemia: Yes Hx Hypertension: Yes Hx Peripheral Edema: Yes (B/L LE no longer swollen) - PULMONARY Hx Chronic Obstructive Pulmonary Disease (COPD): Yes Hx Pneumonia: Yes Hx Pulmonary Embolism: Yes (hx of DVT) - NEUROLOGICAL Hx Dementia: Yes Hx Multiple Sclerosis: Yes Hx Seizures: Yes - HEENT Hx HEENT Problems: Yes (Poor vision, L eye) - RENAL Hx Chronic Kidney Disease: Yes Hx Kidney Stones: Yes (x3 years ago) - ENDOCRINE/METABOLIC Hx Endocrine Disorders: No - HEMATOLOGICAL/ONCOLOGICAL Hx Anemia: Yes Hx Human Immunodeficiency Virus (HIV): No - INTEGUMENTARY Hx Dermatological Problems: No - MUSCULOSKELETAL/RHEUMATOLOGICAL Hx Arthritis: Yes (BACK) - GASTROINTESTINAL Hx Gastrointestinal Disorders: Yes - GENITOURINARY/GYNECOLOGICAL Hx Genitourinary Disorders: Yes Hx Incontinence: Yes Hx Urinary Tract Infection: Yes (Recurrent) Other/Comment: 2wF to drainage bag intact - PSYCHIATRIC Hx Anxiety: Yes Hx Depression: Yes - SURGICAL HISTORY Hx Surgeries: Yes Other/Comment: cysto with removal of stent 05/19/16- kidney stones - ANESTHESIA Hx Anesthesia: Yes Hx Anesthesia Reactions: No Hx Malignant Hyperthermia: No Meds Allergies/Adverse Reactions: Allergies Allergy/AdvReac Type Severity Reaction Status Date / Time cefazolin Allergy RASH, Verified 05/03/18 20:02 ITCHINESS - Medications Medications: Current Medications Enoxaparin Sodium (Lovenox) 40 mg SC DAILY TIMOTHY; Protocol Last Admin: 05/05/18 09:39 Dose: 40 mg Fosphenytoin Sodium (Cerebyx) 100 mg IV Q8 TIMOTHY Last Admin: 05/05/18 09:38 Dose: 100 mg Levetiracetam 1,500 mg/ Sodium (Chloride) 115 mls @ 215 mls/hr IVPB Q12 TIMOTHY Last Admin: 05/05/18 09:38 Dose: 215 mls/hr Aztreonam 1 gm/ Sodium (Chloride) 100 mls @ 100 mls/hr IVPB Q12 TIMOTHY; Protocol Last Admin: 05/05/18 10:46 Dose: 100 mls/hr Lorazepam (Ativan) 2 mg IVP Q3 PRN PRN Reason: Seizure activity Physical Exam - Constitutional Appears: No Acute Distress, Chronically Ill - Head Exam Head Exam: ATRAUMATIC, NORMOCEPHALIC - Eye Exam Eye Exam: PERRL. absent: Scleral icterus - ENT Exam ENT Exam: Mucous Membranes Dry, Normal External Ear Exam - Neck Exam Neck exam: Negative for: Lymphadenopathy - Respiratory Exam Respiratory Exam: Decreased Breath Sounds - Cardiovascular Exam Cardiovascular Exam: REGULAR RHYTHM - GI/Abdominal Exam GI & Abdominal Exam: Diminished Bowel Sounds, Soft. absent: Tenderness - Rectal Exam Rectal Exam: Deferred - Exam Exam: NORMAL INSPECTION - Extremities Exam Extremities exam: Negative for: pedal edema - Back Exam Back exam: absent: CVA tenderness (L), CVA tenderness (R) - Neurological Exam Neurological exam: Alert, Altered, CN II-XII Intact, Motor Sensory Deficit Additional comments: weakness bilat - Psychiatric Exam Psychiatric exam: Anxious - Skin Skin Exam: Dry Results - Vital Signs Recent Vital Signs: Last Vital Signs Temp 98.2 F 05/05/18 08:00 Pulse 82 05/05/18 12:00 Resp 12 05/05/18 12:00 BP 146/87 05/05/18 12:00 Pulse Ox 94 L 05/05/18 12:00 - Labs Result Diagrams: 05/04/18 05:30 05/04/18 05:30 Labs: Laboratory Results - last 24 hr 05/04/18 18:15 Urine Color Yellow Urine Clarity Slighty-cloudy Urine pH 6.0 Ur Specific [place] 1.010 Urine Protein Negative Urine Glucose (UA) Neg Urine Ketones Negative Urine Blood Small Urine Nitrate Negative Urine Bilirubin Negative Urine Urobilinogen 0.2-1.0 Ur Leukocyte Esterase Large Urine RBC (Auto) 8 H Urine WBC Clumps (Auto) Few H Urine Microscopic WBC 34 H Urine Bacteria Occ H Assessment & Plan (1) Abdominal pain Status: Acute (2) Change in mental status Status: Acute Onset Date: ~02/20/17 (3) Fever Status: Acute (4) Leukocytosis Status: Acute (5) Post-ictal state Status: Acute
[2018-05-05] MEDS: Aztreonam 1 GM in Sodium Chloride 0.9% 100 ML IVPB SCH (16:18)
--- NOTE | 2018-05-05 16:59 | RAD ---
Date of service: 05/05/2018 PROCEDURE: CHEST RADIOGRAPH, 1 VIEW HISTORY: pneumonia COMPARISON: Comparison is made with 05/03/2018 FINDINGS: LUNGS: No evidence of new infiltrate or consolidation in the lungs. PLEURA: No pneumothorax or pleural fluid seen. CARDIOVASCULAR: Normal. OSSEOUS STRUCTURES: No significant abnormalities. VISUALIZED UPPER ABDOMEN: Normal. OTHER FINDINGS: None. IMPRESSION: No active disease.
[2018-05-05] MEDS ORDERED: Fosphenytoin 100 mg/2 ml Inj IV SCH (17:00)
--- NOTE | 2018-05-05 17:58 | CP.PCM.PN ---
Subjective - Date & Time of Evaluation Date of Evaluation: 05/05/18 Time of Evaluation: 15:00 - Subjective Subjective: Mr. Moody was seen and examined today at bedside in the ICU. His was present. The patient was significantly improved today and was awake, alert and communicating normally. His stated that this is his baseline. Objective - Vital Signs/Intake and Output Vital Signs (last 24 hours): Temp Pulse Resp BP Pulse Ox 98 F 55 L 18 114/80 96 05/05/18 17:14 05/05/18 17:14 05/05/18 17:14 05/05/18 17:14 05/05/18 17:14 Intake and Output: 05/05/18 05/05/18 06:59 18:59 Intake Total 1150 1425 Output Total 500 1400 Balance 650 25 - Medications Medications: Current Medications Enoxaparin Sodium (Lovenox) 40 mg SC DAILY TIMOTHY; Protocol Fentanyl (Duragesic) 1 patch TD Q3D TIMOTHY; Protocol Last Admin: 05/05/18 16:22 Dose: 1 patch Fosphenytoin Sodium (Cerebyx) 100 mg IV Q8 TIMOTHY Last Admin: 05/05/18 16:21 Dose: 100 mg Aztreonam 1 gm/ Sodium (Chloride) 100 mls @ 100 mls/hr IVPB Q8 TIMOTHY; Protocol Last Admin: 05/05/18 16:18 Dose: 100 mls/hr Levetiracetam 1,500 mg/ Sodium (Chloride) 115 mls @ 215 mls/hr IVPB Q12 TIMOTHY Lorazepam (Ativan) 2 mg IVP Q3 PRN PRN Reason: Seizure activity - Labs Labs: 05/04/18 05:30 05/04/18 05:30 PT 11.9 Seconds (9.8-13.1) 05/03/18 20:02 INR 1.1 05/03/18 20:02 APTT 34.9 Seconds (25.6-37.1) 05/03/18 20:02 - Neurological Exam Neurological Exam: Alert, Awake, CN II-XII Intact Neuro motor strength exam: Left Upper Extremity: 3, Right Upper Extremity: 3, Left Lower Extremity: 3, Right Lower Extremity: 3 Assessment and Plan (1) Multiple sclerosis exacerbation Assessment & Plan: This is unlikely since the patient is now at his baseline. Status: Chronic (2) Status epilepticus Assessment & Plan: The patient was post-ictal yesterday and he is now improved. I recommend switching to oral Keppra 2000 mg BID and continue dilantin 100 mg Q8. Follow up with Dr. Vivas. Status: Resolved
--- NOTE | 2018-05-05 19:16 | RAD ---
Date of service: 05/05/2018 PROCEDURE: Radiographs of the Left Shoulder HISTORY: immobility COMPARISON: No prior. FINDINGS: BONES: Normal. No fracture. JOINTS: Normal. Glenohumeral and acromioclavicular joints preserved. No osteoarthritis. SOFT TISSUES: Normal. OTHER FINDINGS: None. IMPRESSION: No evidence of acute fracture or dislocation.
[2018-05-05] MEDS ORDERED: Oxycodone/Acetaminophen 5/325 mg Tab PO ONE (20:01)
[2018-05-06] MEDS: Aztreonam 1 GM in Sodium Chloride 0.9% 100 ML IVPB SCH ×3 (00:55→17:12)
[2018-05-06] MEDS: Fosphenytoin 100 MG in Sodium Chloride 0.9% 50 ML IV SCH ×3 (01:00→17:58)
[2018-05-06] MEDS: Enoxaparin 40 mg Syringe SC SCH (08:40)
[2018-05-06] MEDS: levETIRAcetam 1,500 MG in Sodium Chloride 0.9% 100 ML IVPB SCH ×2 (12:25→21:28)
--- NOTE | 2018-05-06 13:22 | PQF ---
PROVIDER RESPONSE TEXT: Pneumonia was ruled out REVIEWER QUERY TEXT: Pneumonia Specificity Possible Pneumonia is documented in the Medical Record. Please specify after the work up is completed : the type of pneumonia and the causative organism (includes probable or suspected) if known: vers us Pneumonia ruled out Type: -- Aspiration pneumonia (please also specify the aspirate) - Please indicate if the aspiration is postprocedure -- Bacterial (please document suspected or probable organism) -- Bronchopneumonia (please document suspected or probable organism) -- Interstitial pneumonia -- Organizing pneumonia / BOOP -- Pneumonia with influenza, koko flu, or H1N1 flu -- RSV -- Viral -- Other, please specify 05/03: WBC: 9.4--- 05/04 @05:30 WBC: 13.2 ABG: venous: lactate:1.8 05/03: Temperature: 99.9->99.9->98.6->98.4->98.2 05/03 Pulse: 87->92->81->111->72->78->74 05/04: Pulse: 94->91->91->89->92->85->103 05/04 CXR: IMP: New opacities at the left lower lobe which may represent atelectasis or infiltrate. Q uestionable trace left pleural effusion. 05/05 CXR: IMP: No active disease H and P: addendum: Possible pneumonia past medical hx Dementia, Depression, Deep Vein Thrombosis, Kidney Stones, Multiple Sclerosis with se daysi neuro deficit paraplegia bed ridding since 2008, Peripheral Edema , Pneumonia, Pulmonary Embolism , Chronic Kidney Disease, Seizures, recurrent UTI and sepsis presented in ER with status epilepticus.. A UA reveled UTI. Patient has hx of status epilepticus and sepsis with recurrent UTI. At present post ictal. Appears that he has a deficit in the left upper arm. (1) Change in mental status Status: Acute Onset Date: 02/20/17 (2) DVT prophylaxis Status: Acute (3) Excoriation Status: Acute (4) Lethargy Status: Acute (5) Sepsis Status: Acute (6) UTI (urinary tract infection) Status: Acute (7) UTI (urinary tract infection) with pyuria Status: Acute Onset Date: 02/19/17 (8) Depression Status: Chronic Priority: Medium (9) Multiple sclerosis Status: Chronic (10) Nephrolithiasis Status: Chronic The patient's Clinical Indicators include: xx Query created by: Blanca Suh on 05/06/2018 1:10 PM Electronically signed by: Leo Morris MD 05/06/2018 1:19 PM
--- NOTE | 2018-05-06 13:22 | PQF ---
PROVIDER RESPONSE TEXT: Confirmed UTI organism Klebsiellla Pneumonia Sepsis was ruled out REVIEWER QUERY TEXT: Documentation Clarification 4 (four) queries as follows: Your help is requested in further clarifying the diagnosis of Sepsis: - Please document confirmed, suspected or probable causative organism: if known - Please document confirmed, suspected or probable localized infection - Please clarify if sepsis is related to a device: i.e Sepsis due to a sales catheter related UTI - Please clarify if sepsis was present on admission --Other explanation of clinical findings Admitted 05/03@22: 52 05/03: WBC: 9.4--- 05/04 @05:30 WBC: 13.2 ABG: venous: lactate:1.8 05/03: Temperature: 99.9->99.9->98.6->98.4->98.2 05/03 Pulse: 87->92->81->111->72->78->74 05/04: Pulse: 94->91->91->89->92->85->103 101/2 urine culture; final: Klebsiella Pneumoniae Ssp: MRSA 05/04 CXR: Impression : New opacities at the left lower lobe which may represent atelectasis or infil trate. Questionable trace left pleural effusion. 05/05 CXR: Impression : No active disease H and P: addendum: Possible pneumonia past medical hx Dementia, Depression, Deep Vein Thrombosis, Kidney Stones, Multiple Sclerosis with se daysi neuro deficit paraplegia bed ridding since 2008, Peripheral Edema , Pneumonia, Pulmonary Embolism , Chronic Kidney Disease, Seizures, recurrent UTI and sepsis presented in ER with status epilepticus.. A UA reveled UTI. Patient has hx of status epilepticus and sepsis with recurrent UTI. At present post ictal. Appears that he has a deficit in the left upper arm. (1) Change in mental status Status: Acute Onset Date: 02/20/17 (2) DVT prophylaxis Status: Acute (3) Excoriation Status: Acute (4) Lethargy Status: Acute (5) Sepsis Status: Acute (6) UTI (urinary tract infection) Status: Acute (7) UTI (urinary tract infection) with pyuria Status: Acute Onset Date: 02/19/17 (8) Depression Status: Chronic Priority: Medium (9) Multiple sclerosis Status: Chronic (10) Nephrolithiasis Status: Chronic 05/05 Attending progress note:Patient confuse, at times in delirium and lethargic DRAFT:05/05 ID: Assessment : (1) Abdominal pain Status: Acute (2) Change in mental status Status: Acute Onset Date: 02/20/17 (3) Fever Status: Acute (4) Leukocytosis Status: Acute (5) Post-ictal state Status: Acute The patient's Clinical Indicators include: xx Query created by: Blanca Suh on 05/06/2018 1:03 PM Electronically signed by: Leo Morris MD 05/06/2018 1:19 PM
--- NOTE | 2018-05-06 13:26 | CP.PCM.PN ---
Subjective - Date & Time of Evaluation Date of Evaluation: 05/06/18 Time of Evaluation: 13:29 - Subjective Subjective: Still agitated in delirium. No new seizure activities Objective - Vital Signs/Intake and Output Vital Signs (last 24 hours): Temp Pulse Resp BP Pulse Ox 97.8 F 76 19 127/76 96 05/06/18 09:10 05/06/18 09:10 05/06/18 09:10 05/06/18 09:10 05/06/18 09:10 Intake and Output: 05/06/18 05/06/18 11:59 23:59 Output Total 100 Balance -100 - Medications Medications: Current Medications Enoxaparin Sodium (Lovenox) 40 mg SC DAILY TIMOTHY; Protocol Last Admin: 05/06/18 08:40 Dose: 40 mg Fentanyl (Duragesic) 1 patch TD Q3D TIMOTHY; Protocol Last Admin: 05/05/18 16:22 Dose: 1 patch Aztreonam 1 gm/ Sodium (Chloride) 100 mls @ 100 mls/hr IVPB Q8 TIMOTHY; Protocol Last Admin: 05/06/18 12:26 Dose: 100 mls/hr Levetiracetam 1,500 mg/ Sodium (Chloride) 115 mls @ 215 mls/hr IVPB Q12 TIMOTHY Last Admin: 05/06/18 12:25 Dose: 215 mls/hr Fosphenytoin Sodium 100 mg/ (Sodium Chloride) 52 mls @ 52 mls/hr IV Q8 TIMOTHY Last Admin: 05/06/18 08:40 Dose: 52 mls/hr Vancomycin HCl 1 gm/ Sodium (Chloride) 250 mls @ 166.667 mls/hr IVPB DAILY TIMOTHY; Protocol Lorazepam (Ativan) 2 mg IVP Q3 PRN PRN Reason: Seizure activity - Labs Labs: 05/04/18 05:30 05/04/18 05:30 PT 11.9 Seconds (9.8-13.1) 05/03/18 20:02 INR 1.1 05/03/18 20:02 APTT 34.9 Seconds (25.6-37.1) 05/03/18 20:02 - Constitutional Appears: Agitated, Confused, Chronically Ill - Head Exam Head Exam: ATRAUMATIC, NORMAL INSPECTION, NORMOCEPHALIC - Eye Exam Eye Exam: Normal appearance - ENT Exam ENT Exam: Mucous Membranes Moist - Neck Exam Neck Exam: Full ROM - Respiratory Exam Respiratory Exam: Clear to Ausculation Bilateral - Cardiovascular Exam Cardiovascular Exam: REGULAR RHYTHM, +S1, +S2 - GI/Abdominal Exam GI & Abdominal Exam: Normal Bowel Sounds - Neurological Exam Neurological Exam: Alert, Altered, Awake - Psychiatric Exam Psychiatric exam: Agitated, Anxious - Skin Skin Exam: Normal Color Assessment and Plan (1) Change in mental status Status: Acute (2) DVT prophylaxis Status: Acute (3) Excoriation Status: Acute (4) Lethargy Status: Acute (5) Sepsis Status: Acute (6) UTI (urinary tract infection) Status: Acute (7) UTI (urinary tract infection) with pyuria Status: Acute (8) Depression Status: Chronic (9) Multiple sclerosis Status: Chronic (10) Nephrolithiasis Status: Chronic (11) Seizure disorder Status: Chronic (12) Post-ictal state Status: Acute (13) Tonic-clonic seizure Status: Acute (14) MRSA (methicillin resistant staph aureus) culture positive Status: Acute (15) Klebsiella pneumoniae infection Status: Acute - Assessment and Plan (Free Text) Plan: Add vanco Continue present rx.
[2018-05-06] MEDS ORDERED: Lidocaine 1% 5ml Abboject ONE (14:05)
--- NOTE | 2018-05-06 14:12 | PCM.SURG1 ---
Surgeon's Initial Post Op Note - Surgeon's Notes Surgeon: Hany Spring MD Crime Scene Specialist: NONE Type of Anesthesia: Local Pre-Operative Diagnosis: UTI Operative Findings: US showed a patent right basilic vein Post-Operative Diagnosis: UTI Operation Performed: Single lumen picc placement right arm, 41 cm. Specimen/Specimens Removed: NONE Estimated Blood Loss: EBL {In ML}: 2 Blood Products Given: N/A Drains Used: No Drains Post-Op Condition: Fair Date of Surgery/Procedure: 05/06/18 Time of Surgery/Procedure: 14:10
[2018-05-07] MEDS: Fosphenytoin 100 MG in Sodium Chloride 0.9% 50 ML IV SCH ×3 (00:31→16:54)
[2018-05-07] MEDS: Aztreonam 1 GM in Sodium Chloride 0.9% 100 ML IVPB SCH ×2 (01:27→09:28)
[2018-05-07] MEDS: levETIRAcetam 1,500 MG in Sodium Chloride 0.9% 100 ML IVPB SCH (09:29)
[2018-05-07] MEDS: Enoxaparin 40 mg Syringe SC SCH (09:30)
--- NOTE | 2018-05-07 11:02 | CP.PCM.PN ---
Subjective - Date & Time of Evaluation Date of Evaluation: 05/07/18 Time of Evaluation: 10:00 - Subjective Subjective: growing MRSA and E Coli IV rx in progress cont rx 14 days Objective - Vital Signs/Intake and Output Vital Signs (last 24 hours): Temp Pulse Resp BP Pulse Ox 98.3 F 88 20 120/79 95 05/07/18 00:11 05/07/18 00:11 05/07/18 00:11 05/07/18 00:11 05/07/18 00:11 Intake and Output: 05/07/18 05/07/18 06:59 18:59 Intake Total 1100 Output Total 1000 Balance 100 - Medications Medications: Current Medications Enoxaparin Sodium (Lovenox) 40 mg SC DAILY TIMOTHY; Protocol Last Admin: 05/07/18 09:30 Dose: 40 mg Fentanyl (Duragesic) 1 patch TD Q3D TIMOTHY; Protocol Last Admin: 05/05/18 16:22 Dose: 1 patch Aztreonam 1 gm/ Sodium (Chloride) 100 mls @ 100 mls/hr IVPB Q8 TIMOTHY; Protocol Last Admin: 05/07/18 09:28 Dose: 100 mls/hr Levetiracetam 1,500 mg/ Sodium (Chloride) 115 mls @ 215 mls/hr IVPB Q12 TIMOTHY Last Admin: 05/07/18 09:29 Dose: 215 mls/hr Fosphenytoin Sodium 100 mg/ (Sodium Chloride) 52 mls @ 52 mls/hr IV Q8 TIMOTHY Last Admin: 05/07/18 09:31 Dose: 52 mls/hr Lorazepam (Ativan) 2 mg IVP Q3 PRN PRN Reason: Seizure activity - Labs Labs: 05/04/18 05:30 05/04/18 05:30 PT 11.9 Seconds (9.8-13.1) 05/03/18 20:02 INR 1.1 05/03/18 20:02 APTT 34.9 Seconds (25.6-37.1) 05/03/18 20:02 - Constitutional Appears: Non-toxic, Chronically Ill - Head Exam Head Exam: NORMOCEPHALIC - Eye Exam Eye Exam: PERRL - ENT Exam ENT Exam: Mucous Membranes Dry - Neck Exam Neck Exam: absent: Lymphadenopathy - Respiratory Exam Respiratory Exam: Decreased Breath Sounds - Cardiovascular Exam Cardiovascular Exam: REGULAR RHYTHM - GI/Abdominal Exam GI & Abdominal Exam: Distended, Soft - Rectal Exam Rectal Exam: Deferred - Exam Exam: NORMAL INSPECTION - Extremities Exam Extremities Exam: absent: Pedal Edema - Back Exam Back Exam: absent: CVA tenderness (L), CVA tenderness (R) - Neurological Exam Neurological Exam: Alert, Awake, Motor Sensory Deficit Neuro motor strength exam: Left Upper Extremity: 4, Right Upper Extremity: 4, Left Lower Extremity: 2/1, Right Lower Extremity: 2/1 - Psychiatric Exam Psychiatric exam: Depressed - Skin Skin Exam: Dry, Intact Assessment and Plan (1) Abdominal pain Status: Acute (2) Change in mental status Status: Acute (3) Fever Status: Acute (4) Leukocytosis Status: Acute (5) Post-ictal state Status: Acute - Assessment and Plan (Free Text) Assessment: growing MRSA and E Coli IV rx in progress cont rx 14 days consider eval
[2018-05-07] MEDS ORDERED: TECFIDERA 240 MG PO SCH (12:15)
--- NOTE | 2018-05-07 15:28 | CP.PCM.DIS ---
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 Pastoral Care Referral Routine Comment: Physician Instructions: Reason For Exam: admission, requested Time Spent in preparation of Discharge (in minutes): 30 Diagnosis - Discharge Diagnosis (1) Change in mental status Status: Acute Onset Date: ~02/20/17 (2) DVT prophylaxis Status: Acute (3) Excoriation Status: Acute (4) Lethargy Status: Acute (5) Sepsis Status: Acute (6) UTI (urinary tract infection) Status: Acute (7) UTI (urinary tract infection) with pyuria Status: Acute Onset Date: ~02/19/17 (8) Depression Status: Chronic Priority: Medium (9) Multiple sclerosis Status: Chronic (10) Nephrolithiasis Status: Chronic (11) Seizure disorder Status: Chronic Priority: Medium (12) Post-ictal state Status: Acute (13) Tonic-clonic seizure Status: Acute (14) MRSA (methicillin resistant staph aureus) culture positive Status: Acute (15) Klebsiella pneumoniae infection Status: Acute Hospital Course - Lab Results Lab Results: Micro Results 05/03/18 19:55 Blood Blood Culture - Preliminary NO GROWTH AFTER 3 DAYS 05/05/18 16:39 Nose MRSA Culture (Admit) - Final MRSA DETECTED 05/03/18 20:02 Blood Blood Culture - Preliminary NO GROWTH AFTER 3 DAYS 05/04/18 06:15 Naris MRSA Culture (Admit) - Final MRSA DETECTED 05/03/18 20:02 Urine,Taylor Urine Culture - Final Klebsiella Pneumoniae Ssp Pneu Methicillin Resistant S Aureus 05/04/18 18:15 Urine,Taylor Urine Culture - Final No Growth (<1,000 CFU/ML) Most Recent Lab Values WBC 13.2 K/uL (4.8-10.8) H 05/04/18 05:30 RBC 4.56 Mil/uL (4.40-5.90) 05/04/18 05:30 Hgb 13.6 g/dL (12.0-18.0) 05/04/18 05:30 Hct 41.5 % (35.0-51.0) 05/04/18 05:30 MCV 91.1 fl (80.0-94.0) 05/04/18 05:30 MCH 29.8 pg (27.0-31.0) 05/04/18 05:30 MCHC 32.7 g/dL (33.0-37.0) L 05/04/18 05:30 RDW 13.8 % (11.5-14.5) 05/04/18 05:30 Plt Count 282 K/uL (130-400) 05/04/18 05:30 MPV 7.0 fl (7.2-11.7) L 05/03/18 20:02 Neut % (Auto) 53.7 % (50.0-75.0) 05/03/18 20:02 Lymph % (Auto) 30.8 % (20.0-40.0) 05/03/18 20:02 Morgan % (Auto) 11.2 % (0.0-10.0) H 05/03/18 20:02 Eos % (Auto) 3.8 % (0.0-4.0) 05/03/18 20:02 Baso % (Auto) 0.5 % (0.0-2.0) 05/03/18 20:02 Neut # (Auto) 5.0 K/uL (1.8-7.0) 05/03/18 20:02 Lymph # (Auto) 2.9 K/uL (1.0-4.3) 05/03/18 20:02 Morgan # (Auto) 1.1 K/uL (0.0-0.8) H 05/03/18 20:02 Eos # (Auto) 0.4 K/uL (0.0-0.7) 05/03/18 20:02 Baso # (Auto) 0.0 K/uL (0.0-0.2) 05/03/18 20:02 PT 11.9 Seconds (9.8-13.1) 05/03/18 20:02 INR 1.1 05/03/18 20:02 APTT 34.9 Seconds (25.6-37.1) 05/03/18 20:02 pO2 104 mm/Hg (30-55) H 05/03/18 20:20 VBG pH 7.26 (7.32-7.43) L 05/03/18 20:20 VBG pCO2 74 mmHg (40-60) H* 05/03/18 20:20 VBG HCO3 27.8 mmol/L 05/03/18 20:20 VBG Total CO2 35.5 mmol/L (22-28) H 05/03/18 20:20 VBG O2 Sat (Calc) 99.9 % (40-65) H 05/03/18 20:20 VBG Base Excess 3.7 mmol/L (0.0-2.0) H 05/03/18 20:20 VBG Potassium 3.8 mmol/L (3.6-5.2) 05/03/18 20:20 Sodium 140.0 mmol/L (132-148) 05/03/18 20:20 Chloride 104.0 mmol/L (98-107) 05/03/18 20:20 Glucose 105 mg/dL (75-110) 05/03/18 20:20 Lactate 1.8 mmol/L (0.7-2.1) 05/03/18 20:20 FiO2 21.0 % 05/03/18 20:20 Sodium 140 mmol/l (132-148) 05/04/18 05:30 Potassium 4.0 MMOL/L (3.6-5.0) 05/04/18 05:30 Chloride 104 mmol/L (98-107) 05/04/18 05:30 Carbon Dioxide 29 mmol/L (22-30) 05/04/18 05:30 Anion Gap 11 (10-20) 05/04/18 05:30 BUN 11 mg/dl (9-20) 05/04/18 05:30 Creatinine 0.4 mg/dl (0.8-1.5) L 05/04/18 05:30 Est GFR ( Amer) > 60 05/04/18 05:30 Est GFR (Non-Af Amer) > 60 05/04/18 05:30 Random Glucose 91 mg/dL (75-110) 05/04/18 05:30 Calcium 9.0 mg/dL (8.4-10.2) 05/04/18 05:30 Phosphorus 4.0 mg/dl (2.5-4.5) 05/03/18 20:02 Magnesium 1.8 MG/DL (1.6-2.3) 05/03/18 20:02 Venous Blood Potassium 3.8 mmol/L (3.6-5.2) 05/03/18 20:20 Urine Color Yellow (YELLOW) 05/04/18 18:15 Urine Clarity Slighty-cloudy (Clear) 05/04/18 18:15 Urine pH 6.0 (5.0-8.0) 05/04/18 18:15 Ur Specific [place] 1.010 (1.003-1.030) 05/04/18 18:15 Urine Protein Negative mg/dL (NEGATIVE) 05/04/18 18:15 Urine Glucose (UA) Neg mg/dL (Normal) 05/04/18 18:15 Urine Ketones Negative mg/dL (NEGATIVE) 05/04/18 18:15 Urine Blood Small (NEGATIVE) 05/04/18 18:15 Urine Nitrate Negative (NEGATIVE) 05/04/18 18:15 Urine Bilirubin Negative (NEGATIVE) 05/04/18 18:15 Urine Urobilinogen 0.2-1.0 mg/dL (0.2-1.0) 05/04/18 18:15 Ur Leukocyte Esterase Large Napoleon/uL (Negative) 05/04/18 18:15 Urine RBC (Auto) 8 /hpf (0-3) H 05/04/18 18:15 Urine WBC Clumps (Auto) Few /hpf (NONE) H 05/04/18 18:15 Urine Microscopic WBC 34 /hpf (0-5) H 05/04/18 18:15 Urine Bacteria Occ (<OCC) H 05/04/18 18:15 - Hospital Course Hospital Course: 52 yo male with past medical hx Dementia, Depression, Deep Vein Thrombosis, Kidney Stones, Multiple Sclerosis with severe neuro deficit paraplegia bed ridding since 2008, Peripheral Edema , Pneumonia, Pulmonary Embolism , Chronic Kidney Disease, Seizures, recurrent UTI and sepsis presented in ER with status epilepticus.. A UA reveled UTI. Patient has hx of status epilepticus and sepsis with recurrent UTI. The seizure were controlled. The patient was started on antibx and will continue rx in SNF. Will need P and T for vanco level f/u with urology and neurology. Discharge Exam - Head Exam Head Exam: NORMOCEPHALIC - Eye Exam Eye Exam: Normal appearance - ENT Exam ENT Exam: Normal External Ear Exam - Respiratory Exam Respiratory Exam: Clear to PA & Lateral - Cardiovascular Exam Cardiovascular Exam: REGULAR RHYTHM, +S1, +S2 - GI/Abdominal Exam GI & Abdominal Exam: Normal Bowel Sounds - Extremities Exam Extremities exam: normal inspection - Neurological Exam Neurological exam: Alert, CN II-XII Intact, Oriented x3 - Psychiatric Exam Psychiatric exam: Normal Affect - Skin Skin Exam: Normal Color Discharge Plan - Discharge Medications Prescriptions: Vancomycin/0.9 % Sod Chloride [Vanco 1 Gram/250 ml-0.9% NaCl] 1 gm IV Q12 10 Days #20 plast..bag - Follow Up Plan Condition: CRITICAL Disposition: REHAB FACILITY/REHAB UNIT
--- NOTE | 2018-05-07 15:37 | PQF ---
PROVIDER RESPONSE TEXT: Status epileptics post ictal REVIEWER QUERY TEXT: Altered Mental Status - Underlying Cause A mental status change is documented in the Medical Record. Please specify the underlying cause Such as: -- Due to medication -- Cardiac condition: please include the condition -- Electrolyte/metabolic imbalance: please include the condition -- Infectious process: please include the condition -- Neurologic condition: please include the condition -- Psychiatric condition: please include the condition -- Respiratory condition: please include the condition -- Other, please specify H and P: dxs. include: Change in mental status: Status Acute 05/04 Upward Bound Director note; Systems not reviewed; Unavailable: Altered Mental Status 101/3 Neurologist:Systems not reviewed; Unavailable: Altered Mental Status Multiple sclerosis exacerbation Assessment and Plan: This could be a possible reason for the seizure s; --however, MRI does not show any enhancing lesions. Will continue tecfidera if the patient is able to swallow. Status: Chronic (2) Status epilepticus Assessment and Plan: Will continue current medications and obtain a continuo us video EEG for further evaluation. The patient's Clinical Indicators include: xx Query created by: Blanca Suh on 05/07/2018 8:45 AM Electronically signed by: Leo Morris MD 05/07/2018 3:34 PM
--- NOTE | 2018-05-07 15:37 | PQF ---
PROVIDER RESPONSE TEXT: UTI in patient with chronic urinary retention and Sales Cather. The etiology of the UTI is multifacto rial REVIEWER QUERY TEXT: Conflicting Documentation Clarification Sales Catheter related UTI is listed by the Hospitalist, and the Prosthetic Dentist: please clarify if in a greement versus -- Ruled out: patient has a Straight UTI -- Other, please specify --Unable to determine if: UTI is sales catheter related ER note includes: Male Genital Exam: Positive for: other (Sales catheter in place) H and P: diagnoses include: UTI (urinary tract infection) Status: Acute and Multiple sclerosis Status: Chronic 05/03: Hospitalist: UTI sales associated - Meropenm ; #. Multiple Sclerosis with paraplegia and is be d bound - Baclofen/tecfidora 05/04: Prosthetic Dentist: UTI sales associated - Meropenm: was given, pt is also on vancom which will be DC ed, ID has been consulted The patient's Clinical Indicators include: xx Query created by: Blanca Suh on 05/07/2018 8:38 AM Electronically signed by: Leo Morris MD 05/07/2018 3:34 PM
[2018-05-07 16:22] VITALS: BP 112/67; PULSE 82; RESP 18; TEMP 98; O2SAT 94
== END 2018-05-07 17:15 | DRG 699 ==
LOC: H.ER 19:49 → H.ERHOLD 22:52 → H.ICU/CCU 05-04 00:20 → H.MEDSURG1 05-05 16:57
PROVIDERS: ADMIT Internal Medicine; ATTEND Internal Medicine
PROC: 3E02340 Introduction of Influenza Vaccine into Muscle, Percutaneous Approach (ICD-10-PCS; principal; 2018-05-06)
PROC: 05HB33Z Insertion of Infusion Device into Right Basilic Vein, Percutaneous Approach (ICD-10-PCS; 2018-05-06)
PROC: B54MZZA Ultrasonography of Right Upper Extremity Veins, Guidance (ICD-10-PCS; 2018-05-06)
PROC: 3E03329 Introduction of Other Anti-infective into Peripheral Vein, Percutaneous Approach (ICD-10-PCS; 2018-05-06)
DX: T83.511A Infection and inflammatory reaction due to indwelling urethral catheter, initial encounter (principal); G82.20 Paraplegia, unspecified; G40.801 Other epilepsy, not intractable, with status epilepticus; N39.0 Urinary tract infection, site not specified; B96.1 Klebsiella pneumoniae [K. pneumoniae] as the cause of diseases classified elsewhere; B95.62 Methicillin resistant Staphylococcus aureus infection as the cause of diseases classified elsewhere; B96.20 Unspecified Escherichia coli [E. coli] as the cause of diseases classified elsewhere; G35 Multiple sclerosis; Y82.8 Other medical devices associated with adverse incidents; I12.9 Hypertensive chronic kidney disease with stage 1 through stage 4 chronic kidney disease, or unspecified chronic kidney disease; N18.9 Chronic kidney disease, unspecified; R33.8 Other retention of urine; G89.29 Other chronic pain; F03.90 Unspecified dementia, unspecified severity, without behavioral disturbance, psychotic disturbance, mood disturbance, and anxiety; E78.5 Hyperlipidemia, unspecified; E78.00 Pure hypercholesterolemia, unspecified; J44.9 Chronic obstructive pulmonary disease, unspecified; F32.9 Major depressive disorder, single episode, unspecified; N20.0 Calculus of kidney; F41.9 Anxiety disorder, unspecified; H54.62 Unqualified visual loss, left eye, normal vision right eye; Z23 Encounter for immunization; Z86.711 Personal history of pulmonary embolism; Z86.718 Personal history of other venous thrombosis and embolism; Z79.01 Long term (current) use of anticoagulants; Z74.01 Bed confinement status; Z79.891 Long term (current) use of opiate analgesic; Z87.01 Personal history of pneumonia (recurrent); Z87.440 Personal history of urinary (tract) infections; Z87.442 Personal history of urinary calculi; Y92.89 Other specified places as the place of occurrence of the external cause

== ENCOUNTER 2018-06-06 14:32 | Inpatient (IN) | payer MEDICARE, OTHER ==
--- NOTE | 2018-06-06 14:50 | ED PDOC ---
HPI:STROKE - Time Time: 14:40 - Historian Historian: Patient, Family NIHSS Stroke Scale - Date/Time Evaluation Performed Date Performed: 06/06/18 Time Performed: 14:45 (]) When Was NIHSS Performed: Baseline - How Severe is the Stroke Level of Consciousness: 0=Alert LOC to Questions: 1=One correct LOC to commands: 1=Obeys one correctly Best Gaze: 1=Partial gaze palsy Visual: 0=No visual loss Facial: 1=Minor asymmetry Motor Arm - Left: 3=No effort against gravity (falls immediately) Motor Arm - Right: 0=No drift Motor Leg - Left: 4=No movement Motor Leg - Right: 0=No drift Limb Ataxia: 1=Present Upper or Lower Sensory: 1=Mild to moderate loss Best Language: 1=Mild to moderate aphasia Dysarthia: 1=Mild to moderate slurring Extinction & Inattention (Neglect): 2=Profound neglect(does not recognize own hand or orients to one side) Score: 17 Past Medical History Vital Signs: Last Vital Signs Temp 97.3 F L 06/06/18 14:37 Pulse 124 H 06/06/18 14:37 Resp 16 06/06/18 14:37 BP 74/32 L 06/06/18 14:37 Pulse Ox 92 L 06/06/18 14:37 - Medical History PMH: Anemia, Anxiety, Arthritis (BACK), COPD, Dementia, Depression, Deep Vein Thrombosis, HTN, Hypercholesterolemia, Kidney Stones (x3 years ago), Multiple Sclerosis, Peripheral Edema (B/L LE no longer swollen), Pneumonia, Pulmonary Embolism (hx of DVT), Chronic Kidney Disease, Rheumatoid Arthritis, Seizures Denies: HIV - Family History Family History: States: Unknown Family Hx - Immunization History Hx Tetanus Toxoid Vaccination: No Hx Influenza Vaccination: Yes Hx Pneumococcal Vaccination: Yes - Home Medications Home Medications: Ambulatory Orders Medication Instructions Recorded Lamotrigine [Lamictal] 200 mg PO Q12 01/20/18 Baclofen [Lioresal] 20 mg PO Q8 06/06/18 Dimethyl Fumarate [Tecfidera] 240 mg PO Q12 06/06/18 Levetiracetam 2,000 mg PO Q12 06/06/18 Oxycodone HCl/Acetaminophen 1 tab PO Q6 PRN 06/06/18 [Percocet 10-325 mg Tablet] fentaNYL 50 mcg/hr [Duragesic 1 patch TD Q72H 06/06/18 Patch 50 mcg/hr] - Allergies Allergies/Adverse Reactions: Allergies Allergy/AdvReac Type Severity Reaction Status Date / Time cefazolin Allergy RASH, Verified 06/06/18 14:37 ITCHINESS - Laboratory Results Result Diagrams: 06/06/18 15:10 06/06/18 15:10 - ECG O2 Sat by Pulse Oximetry: 92 Disposition - Disposition Forms: [employer] (Czech)
[2018-06-06] MEDS ORDERED: Sodium Chloride 0.9% 50 ML IV ONE (14:55)
[2018-06-06] MEDS ORDERED: Iodixanol 320 MG/ML 100 ML BOTTLE IV ONE (14:55)
--- NOTE | 2018-06-06 15:06 | CT ---
Date of service: 06/06/2018 PROCEDURE: CT HEAD WITHOUT CONTRAST. HISTORY: code stroke COMPARISON: MRI brain without and with intravenous contrast from 05/04/[address] from 05/03/2018 TECHNIQUE: Axial computed tomography images were obtained through the head/brain without intravenous contrast. Radiation dose: Total exam DLP = 874.91 mGy-cm. This CT exam was performed using one or more of the following dose reduction techniques: Automated exposure control, adjustment of the mA and/or kV according to patient size, and/or use of iterative reconstruction technique. FINDINGS: HEMORRHAGE: No intracranial hemorrhage. BRAIN: There are multifocal low-attenuation areas in the subcortical and periventricular white matter and confluent periventricular hypodensities.. There is no mass, mass effect or abnormal extra-axial fluid collection. There is no territorial infarction. The midline sagittal structures are normal. VENTRICLES: There is moderate age advanced global parenchymal volume loss and proportionate enlargement of the ventricles and cortical sulci. CALVARIUM: There is no calvarial fracture or extracranial soft tissue swelling. PARANASAL SINUSES: Predominantly clear. MASTOID AIR CELLS: Predominantly clear. OTHER FINDINGS: None. IMPRESSION: No acute intracranial abnormality. If there is a persistent focal neurologic deficit and an ongoing clinical concern for acute infarction, an MRI of the brain without intravenous contrast would be a more sensitive modality for evaluation of hyperacute/acute ischemic infarction. Multifocal supratentorial and periventricular white matter lesions are nonspecific and may represent demyelinating disease with the stated history of multiple sclerosis. Other differential consideration include chronic microangiopathic changes. Moderate age advanced global parenchymal volume loss. Important findings were discussed with Dr. Bryan Mcneil in the ER on 06/06/2018 at 3 p.m.
[2018-06-06 15:24] LABS: BASO # 0.1 K/uL (0.0-0.2); BASO % 0.7 % (0.0-2.0); EOS # 0.3 K/uL (0.0-0.7); EOS % 3.2 % (0.0-4.0); HEMOGLOBIN 14.4 g/dL (12.0-18.0); LYMPH # 1.2 K/uL (1.0-4.3); LYMPH % 15.3 % (20.0-40.0); MEAN CELL VOLUME 90.9 fl (80.0-94.0); MEAN CORPUSCULAR HEMOGLOBIN 30.1 pg (27.0-31.0); MEAN CORPUSCULAR HGB CONC 33.2 g/dL (33.0-37.0); MEAN PLATELET VOLUME 7.3 fl (7.2-11.7); MONO # 0.6 K/uL (0.0-0.8); MONO % 7.6 % (0.0-10.0); NEUT # 5.8 K/uL (1.8-7.0); NEUT % 73.2 % (50.0-75.0); NRBC % 0.1 % (0.0-0.0); RBC 4.79 Mil/uL (4.40-5.90); RED CELL DISTRIBUTION WIDTH 14.1 % (11.5-14.5)
--- NOTE | 2018-06-06 15:29 | CT ---
Date of service: 06/06/2018 PROCEDURE: CTA HEAD AND NECK WITH CONTRAST HISTORY: L sided weakness hx MS, s/p seizure COMPARISON: None available. TECHNIQUE: Initial noncontrast head CT was performed. Subsequently, CT angiogram of the head and neck were performed after the intravenous administration of 80 mL of Omnipaque 350. Contiguous 1.5mm thick images were obtained in the axial plane of the neck. 2-D coronal and sagittal MPR images were obtained. Imaging postprocessing was performed with 3-D images also obtained. A delayed contrast head CT was also obtained. This CT exam was performed using one or more of the following dose reduction techniques: Automated exposure control, adjustment of the mA and/or kV according to patient size, and/or use of iterative reconstruction technique. Contrast dose: 99 cc Visipaque 320 Radiation dose: Total exam DLP = 580.63 mGy-cm. FINDINGS: HEAD: There are mild coarse atherosclerotic calcifications in the cavernous carotid arteries without luminal narrowing. Right: The intracranial internal carotid artery, and anterior and middle cerebral arteries are widely patent. Left: The intracranial internal carotid artery, and anterior and middle cerebral arteries are widely patent. Posterior circulation: The visualized intracranial vertebral arteries, basilar artery and posterior cerebral arteries are widely patent. There is no endoluminal filling defect to suggest thrombus. There is no intracranial saccular aneurysm. NECK: There is a three vessel aortic arch. There is no stenosis at the origins of the great vessels at the level of the aortic arch. There are mild coarse atherosclerotic calcifications in the right carotid bulb and left proximal clear internal carotid arteries. Right Carotid: On the right, the common carotid, internal carotid and external carotid arteries are widely patent. There is no hemodynamically significant stenosis in the internal carotid artery by NASCET criteria. Left Carotid: On the left, the common carotid, internal carotid and external carotid arteries are widely patent. There is no hemodynamically significant stenosis in the internal carotid artery by NASCET criteria. The vertebral arteries are widely patent. The right vertebral artery is hypoplastic, an anatomic variant. The visualized soft tissues of the neck are normal. The visualized brain and cervical spine are within normal limits. The lung apices are clear. IMPRESSION: 1. No evidence of endoluminal thrombus,occlusion or definite significant stenosis in the intracranial arteries. 2. No evidence of hemodynamically significant stenosis in the internal carotid arteries. 3. Patent bilateral vertebral arteries.
[2018-06-06 15:32] LABS: PROTHROMBIN TIME 11.9 Seconds (9.8-13.1)
[2018-06-06 15:35] LABS: PARTIAL THROMBOPLASTIN TIME 25.1 Seconds (25.6-37.1)
[2018-06-06 15:38] LABS: ALB/GLOB RATIO 1.2 (1.0-2.1); ALBUMIN 4.3 g/dL (3.5-5.0); ALT/SGPT 30 U/L (21-72); AST/SGOT 19 U/L (17-59); BLOOD UREA NITROGEN 14 mg/dl (9-20); CALCIUM 9.5 mg/dL (8.4-10.2); GFR NON-AFRICAN AMERICAN > 60; HDL CHOLESTEROL 33 MG/DL (30-70)
--- NOTE | 2018-06-06 15:38 | RAD ---
Date of service: 06/06/2018 HISTORY: Code Stroke COMPARISON: 05/05/2018 FINDINGS: LUNGS: The lungs are well inflated and clear. PLEURA: No pleural effusions or pneumothorax. CARDIOVASCULAR: There is mild cardiomegaly. No aortic atherosclerotic calcification present. OSSEOUS STRUCTURES: Within normal limits for the patient's age. VISUALIZED UPPER ABDOMEN: Normal. OTHER FINDINGS: None. IMPRESSION: No active pulmonary disease.
[2018-06-06 15:49] LABS: LDL CHOLESTEROL 97 mg/dL (0-129)
[2018-06-06] MEDS: Sodium Chloride 0.9% 1,000 ML IV SCH (17:05)
[2018-06-07] MEDS: Sodium Chloride 0.9% 1,000 ML IV SCH (08:26)
--- NOTE | 2018-06-07 08:54 | CARD ---
APPROVED REPORT Date of service: 06/06/2018 EKG Measurement Heart [id number] ID [id number] <Conclusion> Normal sinus rhythm Left anterior fascicular block Abnormal ECG
[2018-06-07 10:54] LABS: URINE BACTERIA RARE (<OCC); URINE BILIRUBIN NEGATIVE (NEGATIVE); URINE BLOOD MODERATE (NEGATIVE); URINE CLARITY CLOUDY (Clear); URINE COLOR YELLOW (YELLOW); URINE GLUCOSE (UA) NEG (Normal); URINE LEUKOCYTE ESTERASE LARGE Leu/uL (Negative); URINE PROTEIN 30 mg/dL (NEGATIVE); URINE UROBILINOGEN 0.2-1.0 mg/dL (0.2-1.0)
[2018-06-07] MEDS ORDERED: LEVETIRACETAM 2000 MG PO SCH (11:45)
[2018-06-07] MEDS ORDERED: LAMOTRIGINE 200 MG PO SCH (11:45)
[2018-06-07] MEDS ORDERED: Patient's Own Med (Oxycodone Hcl/Acetaminophen [Percocet 10-325 Mg Tablet] 1 TAB) PO PRN (11:45)
--- NOTE | 2018-06-07 13:17 | CP.PCM.HP ---
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 In delirium and post ictal with left side of the body with motor deficit. A UA reveled UTI. Patient has hx of status epilepticus and sepsis with recurrent UTI. Appears that he has a persistent deficit in the left upper arm. He iis agitated in delirium. Present on Admission - Present on Admission Any Indicators Present on Admission: No Review of Systems - Review of Systems Systems not reviewed;Unavailable: Altered Mental Status - Constitutional Constitutional: Weakness - EENT Eyes: As Per HPI - Cardiovascular Cardiovascular: As Per HPI - Respiratory Respiratory: As Per HPI - Gastrointestinal Gastrointestinal: As Per HPI - Musculoskeletal Musculoskeletal: Muscle Weakness - Integumentary Integumentary: As Per HPI - Neurological Neurological: Confusion, Convulsions, Focal Weakness, Memory Loss, Weakness - Psychiatric Psychiatric: Anxiety, Confusion, Depression, Memory Loss - Endocrine Endocrine: As Per HPI Past Patient History - Infectious Disease Hx of Infectious Diseases: None - Tetanus Immunizations Tetanus Immunization: Unknown - Past Medical History & Family History Past Medical History?: Yes - Past Social History Smoking Status: Never Smoked - CARDIAC Hx Cardiac Disorders: Yes - PULMONARY Hx Respiratory Disorders: Yes - NEUROLOGICAL Hx Neurological Disorder: Yes - HEENT Hx HEENT Problems: Yes (Poor vision, L eye) - RENAL Hx Chronic Kidney Disease: Yes - ENDOCRINE/METABOLIC Hx Endocrine Disorders: No - HEMATOLOGICAL/ONCOLOGICAL Hx Anemia: Yes Hx Human Immunodeficiency Virus (HIV): No - INTEGUMENTARY Hx Dermatological Problems: No - MUSCULOSKELETAL/RHEUMATOLOGICAL Hx Arthritis: Yes (BACK) Hx Rheumatoid Arthritis: Yes - GASTROINTESTINAL Hx Gastrointestinal Disorders: Yes - GENITOURINARY/GYNECOLOGICAL Hx Genitourinary Disorders: Yes Hx Incontinence: Yes Hx Urinary Tract Infection: Yes (Recurrent) Other/Comment: 2wF to drainage bag intact - PSYCHIATRIC Hx Psychophysiologic Disorder: Yes - SURGICAL HISTORY Hx Surgeries: Yes Other/Comment: cysto with removal of stent 05/19/16- kidney stones - ANESTHESIA Hx Anesthesia: Yes Hx Anesthesia Reactions: No Hx Malignant Hyperthermia: No Meds Allergies/Adverse Reactions: Allergies Allergy/AdvReac Type Severity Reaction Status Date / Time cefazolin Allergy RASH, Verified 06/06/18 14:37 ITCHINESS Physical Exam - Constitutional Appears: Agitated, Confused, Chronically Ill - Head Exam Head Exam: ATRAUMATIC, NORMAL INSPECTION, NORMOCEPHALIC - Eye Exam Eye Exam: Normal appearance - ENT Exam ENT Exam: Mucous Membranes Moist - Neck Exam Neck exam: Positive for: Full Rom - Respiratory Exam Respiratory Exam: Decreased Breath Sounds - Cardiovascular Exam Cardiovascular Exam: REGULAR RHYTHM, +S1, +S2 - GI/Abdominal Exam GI & Abdominal Exam: Normal Bowel Sounds - Extremities Exam Extremities exam: Positive for: pedal edema - Neurological Exam Neurological exam: Altered, Motor Sensory Deficit - Psychiatric Exam Psychiatric exam: Agitated, Anxious - Skin Skin Exam: Normal Color Results - Vital Signs Recent Vital Signs: Last Vital Signs Temp 98.7 F 06/07/18 12:27 Pulse 70 06/07/18 12:27 Resp 20 06/07/18 12:27 BP 112/73 06/07/18 12:27 Pulse Ox 98 06/07/18 12:27 - Labs Result Diagrams: 06/06/18 15:10 06/06/18 15:10 Labs: Laboratory Results - last 24 hr 06/06/18 06/06/18 06/06/18 14:47 15:10 15:10 WBC 8.0 RBC 4.79 Hgb 14.4 Hct 43.5 MCV 90.9 MCH 30.1 MCHC 33.2 RDW 14.1 Plt Count 298 MPV 7.3 Neut % (Auto) 73.2 Lymph % (Auto) 15.3 L Baker % (Auto) 7.6 Eos % (Auto) 3.2 Baso % (Auto) 0.7 Neut # (Auto) 5.8 Lymph # (Auto) 1.2 Baker # (Auto) 0.6 Eos # (Auto) 0.3 Baso # (Auto) 0.1 PT INR APTT Sodium 139 Potassium 4.7 Chloride 105 Carbon Dioxide 25 Anion Gap 14 BUN 14 Creatinine 0.6 L Est GFR ( Amer) > 60 Est GFR (Non-Af Amer) > 60 POC Glucose (mg/dL) 100 Random Glucose 88 Hemoglobin A1c Calcium 9.5 Total Bilirubin 0.4 AST 19 ALT 30 Alkaline Phosphatase 84 Troponin I < 0.0120 Total Protein 7.9 Albumin 4.3 Globulin 3.6 Albumin/Globulin Ratio 1.2 Triglycerides 293 H Cholesterol 174 LDL Cholesterol Direct 97 HDL Cholesterol 33 Urine Color Urine Clarity Urine pH Ur Specific [place] Urine Protein Urine Glucose (UA) Urine Ketones Urine Blood Urine Nitrate Urine Bilirubin Urine Urobilinogen Ur Leukocyte Esterase Urine RBC (Auto) Urine Microscopic WBC Urine Bacteria Blood Type Antibody Screen BBK History Checked 06/06/18 06/06/18 06/06/18 15:10 15:10 15:10 WBC RBC Hgb Hct MCV MCH MCHC RDW Plt Count MPV Neut % (Auto) Lymph % (Auto) Baker % (Auto) Eos % (Auto) Baso % (Auto) Neut # (Auto) Lymph # (Auto) Baker # (Auto) Eos # (Auto) Baso # (Auto) PT 11.9 INR 1.0 APTT 25.1 L Sodium Potassium Chloride Carbon Dioxide Anion Gap BUN Creatinine Est GFR ( Amer) Est GFR (Non-Af Amer) POC Glucose (mg/dL) Random Glucose Hemoglobin A1c 5.3 Calcium Total Bilirubin AST ALT Alkaline Phosphatase Troponin I Total Protein Albumin Globulin Albumin/Globulin Ratio Triglycerides Cholesterol LDL Cholesterol Direct HDL Cholesterol Urine Color Urine Clarity Urine pH Ur Specific [place] Urine Protein Urine Glucose (UA) Urine Ketones Urine Blood Urine Nitrate Urine Bilirubin Urine Urobilinogen Ur Leukocyte Esterase Urine RBC (Auto) Urine Microscopic WBC Urine Bacteria Blood Type Cancelled Antibody Screen Cancelled BBK History Checked Cancelled 06/06/18 06/07/18 18:15 10:00 WBC RBC Hgb Hct MCV MCH MCHC RDW Plt Count MPV Neut % (Auto) Lymph % (Auto) Baker % (Auto) Eos % (Auto) Baso % (Auto) Neut # (Auto) Lymph # (Auto) Baker # (Auto) Eos # (Auto) Baso # (Auto) PT INR APTT Sodium Potassium Chloride Carbon Dioxide Anion Gap BUN Creatinine Est GFR ( Amer) Est GFR (Non-Af Amer) POC Glucose (mg/dL) Random Glucose Hemoglobin A1c Calcium Total Bilirubin AST ALT Alkaline Phosphatase Troponin I Total Protein Albumin Globulin Albumin/Globulin Ratio Triglycerides Cholesterol LDL Cholesterol Direct HDL Cholesterol Urine Color Yellow Urine Clarity Cloudy Urine pH 8.0 Ur Specific [place] 1.018 Urine Protein 30 Urine Glucose (UA) Neg Urine Ketones Negative Urine Blood Moderate Urine Nitrate Positive H Urine Bilirubin Negative Urine Urobilinogen 0.2-1.0 Ur Leukocyte Esterase Large Urine RBC (Auto) 50 H Urine Microscopic WBC 133 H Urine Bacteria Rare Blood Type O POSITIVE Antibody Screen Negative BBK History Checked Patient has bt Assessment & Plan (1) Anxiety Status: Acute Priority: Medium (2) Delirium due to general medical condition Status: Acute (3) ESBL (extended spectrum beta-lactamase) producing bacteria infection Status: Acute (4) Post-ictal state Status: Acute (5) Tonic-clonic seizure Status: Chronic (6) UTI (urinary tract infection) with pyuria Status: Acute Onset Date: ~02/19/17 (7) UTI (urinary tract infection), bacterial Status: Acute (8) COPD (chronic obstructive pulmonary disease) with chronic bronchitis Status: Chronic (9) Multiple sclerosis Status: Chronic (10) Paraplegia Status: Chronic (11) Recurrent seizures Status: Chronic - Assessment and Plan (Free Text) Plan: Star antibx will follow culture
--- NOTE | 2018-06-07 14:58 | CP.PCM.CON ---
History of Present Illness - History of Present Illness History of Present Illness: 52 yo male presented in ER with status epilepticus. he sopiked a fecer and was found to have UTI Referred for ID eval for antibiotic management Is no longer post ictal Cannot remember what happened PMH Dementia, Depression, Deep Vein Thrombosis, Kidney Stones, Multiple Sclerosis with severe neuro deficit paraplegia bed ridding since 2008, Peripheral Edema , Pneumonia, Pulmonary Embolism , Chronic Kidney Disease, Seizures, recurrent UTI and sepsis Social lives with who is primary anesthesiologist and critical care, denies smoking, alcohol Allergies Cefazolin Meds reviewed Review of Systems - Review of Systems All systems: reviewed and no additional remarkable complaints except - Constitutional Constitutional: Anorexia - EENT Eyes: As Per HPI Ears: absent: As Per HPI, Decreased Hearing, Ear Discharge, Ear Pain, Tinnitus, Abnormal Hearing, Disequilibrium, Dizziness, Other Nose/Mouth/Throat: absent: As Per HPI, Epistaxis, Nasal Congestion, Nasal Discharge, Nasal Obstruction, Nasal Trauma, Nose Pain, Post Nasal Drip, Sinus Pain, Sinus Pressure, Bleeding Gums, Change in Voice, Dental Pain, Dry Mouth, Dysphagia, Halitosis, Hoarsness, Lip Swelling, Mouth Lesions, Mouth Pain, Odynophagia, Sore Throat, Throat Swelling, Tongue Swelling, Facial Pain, Neck Pain, Neck Mass, Other - Cardiovascular Cardiovascular: absent: As Per HPI, Acrocyanosis, Chest Pain, Chest Pain at Rest, Chest Pain with Activity, Claudication, Diaphoresis, Dyspnea, Dyspnea on Exertion, Edema, Irregular Heart Rhythm, Pain Radiating to Arm/Neck/Jaw, Leg Edema, Leg Ulcers, Lightheadedness, Orthopnea, Palpitations, Paroxysmal Noct urnal Dyspnea, Pedal Edema, Radiating Pain, Rapid Heart Rate, Slow Heart Rate, Syncope, Other - Respiratory Respiratory: absent: As Per HPI, Cough, Dyspnea, Hemoptysis, Dyspnea on Exertion, Wheezing, Snoring, Stridor, Pain on Inspiration, Chest Congestion, Excessive Mucous Production, Change in Mucous Color, Pain with Coughing, Other - Gastrointestinal Gastrointestinal: absent: As Per HPI, Abdominal Pain, Belching, Bloating, Change in Bowel Habits, Change in Stool Character, Coffee Ground Emesis, Constipation, Cramping, Diarrhea, Dyspepsia, Dysphagia, Early Satiety, Excessive Flatus, Fecal Incontinence, Heartburn, Hematemesis, Hematochezia, Loose Stools, Melena, Nausea, Odynophagia, Temesmus, Vomiting, Other - Genitourinary Genitourinary: As Per HPI - Musculoskeletal Musculoskeletal: As Per HPI - Integumentary Integumentary: absent: As Per HPI, Acne, Alopecia, Bleeding Lesions, Change in Hair, Change in Nails, Change in Pigmentation, Changing Lesions, Dry Skin, Erythema, Furuncle, Hirsutism, Lesions, New Lesions, Non-Healing Lesions, Photosensitivity, Pruritus, Rash, Skin Pain, Skin Ulcer, Sores, Striae, Swelling, Unusual Bruising, Wounds, Jaundice, Other - Neurological Neurological: As Per HPI - Psychiatric Psychiatric: absent: As Per HPI, Abnormal Sleep Pattern, Anhedonia, Anxiety, Auditory Hallucinations, Behavioral Changes, Change in Appetite, Change in Libido, Confusion, Depression, Difficulty Concentrating, Hallucinations, Homicidal Ideation, Hopelessness, Irritability, Memory Loss, Mood Swings, Panic Attacks, Paranoia, Suicidal Ideation, Visual Hallucinations, Tactile Hallucinations, Other - Endocrine Endocrine: absent: As Per HPI, Change in Body Appearance, Change in Libido, Cold Intolorance, Deepening of Voice, Excessive Sweating, Fatigue, Flushing, Heat Intolorance, Increase in Ring/Shoe/Hat Size, Palpitations, Polydipsia, Polyphagia, Polyuria, Other - Hematologic/Lymphatic Hematologic: absent: As Per HPI, Easy Bleeding, Easy Bruising, Lymphadenopathy, Other Past Patient History - Infectious Disease Hx of Infectious Diseases: None - Tetanus Immunizations Tetanus Immunization: Unknown - Past Medical History & Family History Past Medical History?: Yes - Past Social History Smoking Status: Never Smoked - CARDIAC Hx Cardiac Disorders: Yes - PULMONARY Hx Respiratory Disorders: Yes - NEUROLOGICAL Hx Neurological Disorder: Yes - HEENT Hx HEENT Problems: Yes (Poor vision, L eye) - RENAL Hx Chronic Kidney Disease: Yes - ENDOCRINE/METABOLIC Hx Endocrine Disorders: No - HEMATOLOGICAL/ONCOLOGICAL Hx Anemia: Yes Hx Human Immunodeficiency Virus (HIV): No - INTEGUMENTARY Hx Dermatological Problems: No - MUSCULOSKELETAL/RHEUMATOLOGICAL Hx Arthritis: Yes (BACK) Hx Rheumatoid Arthritis: Yes - GASTROINTESTINAL Hx Gastrointestinal Disorders: Yes - GENITOURINARY/GYNECOLOGICAL Hx Genitourinary Disorders: Yes Hx Incontinence: Yes Hx Urinary Tract Infection: Yes (Recurrent) Other/Comment: 2wF to drainage bag intact - PSYCHIATRIC Hx Psychophysiologic Disorder: Yes - SURGICAL HISTORY Hx Surgeries: Yes Other/Comment: cysto with removal of stent 05/19/16- kidney stones - ANESTHESIA Hx Anesthesia: Yes Hx Anesthesia Reactions: No Hx Malignant Hyperthermia: No Meds Allergies/Adverse Reactions: Allergies Allergy/AdvReac Type Severity Reaction Status Date / Time cefazolin Allergy RASH, Verified 06/06/18 14:37 ITCHINESS - Medications Medications: Current Medications Baclofen (Lioresal) 20 mg PO Q8 [facility] Fentanyl (Duragesic) 1 patch TD Q72H [facility]; Protocol Home Med (Dimethyl Fumarate [Tecfidera]) 240 mg PO Q12 [facility] Home Med (Oxycodone Hcl/Acetaminophen [Percocet 10-325 Mg Tablet]) 1 tab PO Q6 PRN PRN Reason: Pain, severe (8-10) Sodium Chloride (Sodium Chloride 0.9%) 1,000 mls @ 100 mls/hr IV .Q10H [facility] Last Admin: 06/07/18 08:26 Dose: 100 mls/hr Lamotrigine (Lamictal) 200 mg PO Q12 [facility] Last Admin: 06/07/18 14:12 Dose: 200 mg Levetiracetam (Keppra) 2,000 mg PO Q12 [facility] Physical Exam - Constitutional Appears: No Acute Distress, Confused, Chronically Ill - Head Exam Head Exam: ATRAUMATIC, NORMAL INSPECTION, NORMOCEPHALIC - Eye Exam Eye Exam: absent: Scleral icterus - ENT Exam ENT Exam: Mucous Membranes Dry, Normal External Ear Exam - Neck Exam Neck exam: Negative for: Lymphadenopathy, Thyromegaly - Respiratory Exam Respiratory Exam: Decreased Breath Sounds, Prolonged Expiratory Phase, Rhonchi - Cardiovascular Exam Cardiovascular Exam: REGULAR RHYTHM, +S1, +S2 - GI/Abdominal Exam GI & Abdominal Exam: Diminished Bowel Sounds, Soft. absent: Tenderness - Rectal Exam Rectal Exam: Deferred - Exam Exam: NORMAL INSPECTION - Extremities Exam Extremities exam: Positive for: pedal pulses present. Negative for: calf tenderness, pedal edema, tenderness - Back Exam Back exam: absent: CVA tenderness (L), CVA tenderness (R) - Neurological Exam Neurological exam: Alert, Altered, CN II-XII Intact, Motor Sensory Deficit Additional comments: weakness bilat lower extrem as well as lue - Psychiatric Exam Psychiatric exam: Depressed - Skin Skin Exam: Dry Results - Vital Signs Recent Vital Signs: Last Vital Signs Temp 98.7 F 06/07/18 12:27 Pulse 70 06/07/18 12:27 Resp 20 06/07/18 12:27 BP 112/73 06/07/18 12:27 Pulse Ox 98 06/07/18 12:27 - Labs Result Diagrams: 06/06/18 15:10 06/06/18 15:10 Labs: Laboratory Results - last 24 hr 06/06/18 06/06/18 06/06/18 15:10 15:10 15:10 WBC 8.0 RBC 4.79 Hgb 14.4 Hct 43.5 MCV 90.9 MCH 30.1 MCHC 33.2 RDW 14.1 Plt Count 298 MPV 7.3 Neut % (Auto) 73.2 Lymph % (Auto) 15.3 L [place] % (Auto) 7.6 Eos % (Auto) 3.2 Baso % (Auto) 0.7 Neut # (Auto) 5.8 Lymph # (Auto) 1.2 [place] # (Auto) 0.6 Eos # (Auto) 0.3 Baso # (Auto) 0.1 PT INR APTT Sodium 139 Potassium 4.7 Chloride 105 Carbon Dioxide 25 Anion Gap 14 BUN 14 Creatinine 0.6 L Est GFR ( Amer) > 60 Est GFR (Non-Af Amer) > 60 Random Glucose 88 Hemoglobin A1c 5.3 Calcium 9.5 Total Bilirubin 0.4 AST 19 ALT 30 Alkaline Phosphatase 84 Troponin I < 0.0120 Total Protein 7.9 Albumin 4.3 Globulin 3.6 Albumin/Globulin Ratio 1.2 Triglycerides 293 H Cholesterol 174 LDL Cholesterol Direct 97 HDL Cholesterol 33 Urine Color Urine Clarity Urine pH Ur Specific [place] Urine Protein Urine Glucose (UA) Urine Ketones Urine Blood Urine Nitrate Urine Bilirubin Urine Urobilinogen Ur Leukocyte Esterase Urine RBC (Auto) Urine Microscopic WBC Urine Bacteria Blood Type Antibody Screen BBK History Checked 06/06/18 06/06/18 06/06/18 15:10 15:10 18:15 WBC RBC Hgb Hct MCV MCH MCHC RDW Plt Count MPV Neut % (Auto) Lymph % (Auto) [place] % (Auto) Eos % (Auto) Baso % (Auto) Neut # (Auto) Lymph # (Auto) [place] # (Auto) Eos # (Auto) Baso # (Auto) PT 11.9 INR 1.0 APTT 25.1 L Sodium Potassium Chloride Carbon Dioxide Anion Gap BUN Creatinine Est GFR ( Amer) Est GFR (Non-Af Amer) Random Glucose Hemoglobin A1c Calcium Total Bilirubin AST ALT Alkaline Phosphatase Troponin I Total Protein Albumin Globulin Albumin/Globulin Ratio Triglycerides Cholesterol LDL Cholesterol Direct HDL Cholesterol Urine Color Urine Clarity Urine pH Ur Specific [place] Urine Protein Urine Glucose (UA) Urine Ketones Urine Blood Urine Nitrate Urine Bilirubin Urine Urobilinogen Ur Leukocyte Esterase Urine RBC (Auto) Urine Microscopic WBC Urine Bacteria Blood Type Cancelled O POSITIVE Antibody Screen Cancelled Negative BBK History Checked Cancelled Patient has bt 06/07/18 10:00 WBC RBC Hgb Hct MCV MCH MCHC RDW Plt Count MPV Neut % (Auto) Lymph % (Auto) [place] % (Auto) Eos % (Auto) Baso % (Auto) Neut # (Auto) Lymph # (Auto) [place] # (Auto) Eos # (Auto) Baso # (Auto) PT INR APTT Sodium Potassium Chloride Carbon Dioxide Anion Gap BUN Creatinine Est GFR ( Amer) Est GFR (Non-Af Amer) Random Glucose Hemoglobin A1c Calcium Total Bilirubin AST ALT Alkaline Phosphatase Troponin I Total Protein Albumin Globulin Albumin/Globulin Ratio Triglycerides Cholesterol LDL Cholesterol Direct HDL Cholesterol Urine Color Yellow Urine Clarity Cloudy Urine pH 8.0 Ur Specific [place] 1.018 Urine Protein 30 Urine Glucose (UA) Neg Urine Ketones Negative Urine Blood Moderate Urine Nitrate Positive H Urine Bilirubin Negative Urine Urobilinogen 0.2-1.0 Ur Leukocyte Esterase Large Urine RBC (Auto) 50 H Urine Microscopic WBC 133 H Urine Bacteria Rare Blood Type Antibody Screen BBK History Checked Assessment & Plan - Assessment and Plan (Free Text) Assessment: UTI- recurrent seizures MS await cultures cont iv antibiotics as ordered
--- NOTE | 2018-06-07 17:35 | CP.PCM.CON ---
History of Present Illness - History of Present Illness History of Present Illness: Neurology Consultation Note: Mr. Moody is a 52-year-old man with a past medical history of multiple medical and neurological co-morbidities, including MS and epilepsy, who has been admitted in the past for status epilepticus, and this morning had a seizure with subsequent Evangelista's paralysis that improved. He is currently back to baseline. CT and CTA of the head/neck did not show any acute findings. The patient typically has one seizure a month according to his . Review of Systems - Constitutional Constitutional: As Per HPI - EENT Eyes: absent: As Per HPI, Blind Spots, Blurred Vision, Change in Vision, Decreased Night Vision, Diplopia, Discharge, Dry Eye, Exophthalmos, Floaters, Irritation, Itchy Eyes, Loss of Peripheral Vision, Pain, Photophobia, Requires Corrective Lenses, Sees Flashes, Spots in Vision, Tunnel Vision, Other Visual Disturbances, Loss of Vision, Other Ears: absent: As Per HPI, Decreased Hearing, Ear Discharge, Ear Pain, Tinnitus, Abnormal Hearing, Disequilibrium, Dizziness, Other Nose/Mouth/Throat: absent: As Per HPI, Epistaxis, Nasal Congestion, Nasal Discharge, Nasal Obstruction, Nasal Trauma, Nose Pain, Post Nasal Drip, Sinus Pain, Sinus Pressure, Bleeding Gums, Change in Voice, Dental Pain, Dry Mouth, Dysphagia, Halitosis, Hoarsness, Lip Swelling, Mouth Lesions, Mouth Pain, Odynophagia, Sore Throat, Throat Swelling, Tongue Swelling, Facial Pain, Neck Pain, Neck Mass, Other - Cardiovascular Cardiovascular: absent: As Per HPI, Acrocyanosis, Chest Pain, Chest Pain at Rest, Chest Pain with Activity, Claudication, Diaphoresis, Dyspnea, Dyspnea on Exertion, Edema, Irregular Heart Rhythm, Pain Radiating to Arm/Neck/Jaw, Leg Edema, Leg Ulcers, Lightheadedness, Orthopnea, Palpitations, Paroxysmal Nocturnal Dyspnea, Pedal Edema, Radiating Pain, Rapid Heart Rate, Slow Heart Rate, Syncope, Other - Respiratory Respiratory: absent: As Per HPI, Cough, Dyspnea, Hemoptysis, Dyspnea on Exertion, Wheezing, Snoring, Stridor, Pain on Inspiration, Chest Congestion, Excessive Mucous Production, Change in Mucous Color, Pain with Coughing, Other - Gastrointestinal Gastrointestinal: absent: As Per HPI, Abdominal Pain, Belching, Bloating, Change in Bowel Habits, Change in Stool Character, Coffee Ground Emesis, Constipation, Cramping, Diarrhea, Dyspepsia, Dysphagia, Early Satiety, Excessive Flatus, Fecal Incontinence, Heartburn, Hematemesis, Hematochezia, Loose Stools, Melena, Nausea, Odynophagia, Temesmus, Vomiting, Other - Genitourinary Genitourinary: absent: As Per HPI, Change in Urinary Stream, Difficulty Urinating, Dysuria, Flank Pain, Hematuria, Pyuria, Nocturia, Urinary Incontinence, Urinary Frequency, Urinary Hesitance, Urinary Urgency, Voiding Freq/Small Amts, Freq UTI, Hx Renal/Bladder Calculi, Hx /Renal Surgery, Bladder Distension, Other - Musculoskeletal Musculoskeletal: absent: As Per HPI, Abnormal Gait, Arthralgias, Atrophy, Back Pain, Deformity, Joint Swelling, Limited Range of Motion, Loss of Height, Muscle Cramps, Muscle Weakness, Myalgias, Neck Pain, Numbness, Radiating Pain into Limb, Stiffness, Tingling, Other - Integumentary Integumentary: absent: As Per HPI, Acne, Alopecia, Bleeding Lesions, Change in Hair, Change in Nails, Change in Pigmentation, Changing Lesions, Dry Skin, Erythema, Furuncle, Hirsutism, Lesions, New Lesions, Non-Healing Lesions, Photosensitivity, Pruritus, Rash, Skin Pain, Skin Ulcer, Sores, Striae, Swelling, Unusual Bruising, Wounds, Jaundice, Other - Neurological Neurological: As Per HPI - Psychiatric Psychiatric: absent: As Per HPI, Abnormal Sleep Pattern, Anhedonia, Anxiety, Auditory Hallucinations, Behavioral Changes, Change in Appetite, Change in Libido, Confusion, Depression, Difficulty Concentrating, Hallucinations, Homicidal Ideation, Hopelessness, Irritability, Memory Loss, Mood Swings, Panic Attacks, Paranoia, Suicidal Ideation, Visual Hallucinations, Tactile Hallucinations, Other - Endocrine Endocrine: absent: As Per HPI, Change in Body Appearance, Change in Libido, Cold Intolorance, Deepening of Voice, Excessive Sweating, Fatigue, Flushing, Heat Intolorance, Increase in Ring/Shoe/Hat Size, Palpitations, Polydipsia, Polyphagia, Polyuria, Other - Hematologic/Lymphatic Hematologic: absent: As Per HPI, Easy Bleeding, Easy Bruising, Lymphadenopathy, Other Past Patient History - Infectious Disease Hx of Infectious Diseases: None - Tetanus Immunizations Tetanus Immunization: Unknown - Past Medical History & Family History Past Medical History?: Yes - Past Social History Smoking Status: Never Smoked - CARDIAC Hx Cardiac Disorders: Yes - PULMONARY Hx Respiratory Disorders: Yes - NEUROLOGICAL Hx Neurological Disorder: Yes - HEENT Hx HEENT Problems: Yes (Poor vision, L eye) - RENAL Hx Chronic Kidney Disease: Yes - ENDOCRINE/METABOLIC Hx Endocrine Disorders: No - HEMATOLOGICAL/ONCOLOGICAL Hx Anemia: Yes Hx Human Immunodeficiency Virus (HIV): No - INTEGUMENTARY Hx Dermatological Problems: No - MUSCULOSKELETAL/RHEUMATOLOGICAL Hx Arthritis: Yes (BACK) Hx Rheumatoid Arthritis: Yes - GASTROINTESTINAL Hx Gastrointestinal Disorders: Yes - GENITOURINARY/GYNECOLOGICAL Hx Genitourinary Disorders: Yes Hx Incontinence: Yes Hx Urinary Tract Infection: Yes (Recurrent) Other/Comment: 2wF to drainage bag intact - PSYCHIATRIC Hx Psychophysiologic Disorder: Yes - SURGICAL HISTORY Hx Surgeries: Yes Other/Comment: cysto with removal of stent 05/19/16- kidney stones - ANESTHESIA Hx Anesthesia: Yes Hx Anesthesia Reactions: No Hx Malignant Hyperthermia: No Meds Allergies/Adverse Reactions: Allergies Allergy/AdvReac Type Severity Reaction Status Date / Time cefazolin Allergy RASH, Verified 06/06/18 14:37 ITCHINESS - Medications Medications: Current Medications Baclofen (Lioresal) 20 mg PO Q8 [facility] Fentanyl (Duragesic) 1 patch TD Q72H [facility]; Protocol Home Med (Dimethyl Fumarate [Tecfidera]) 240 mg PO Q12 [facility] Home Med (Oxycodone Hcl/Acetaminophen [Percocet 10-325 Mg Tablet]) 1 tab PO Q6 PRN PRN Reason: Pain, severe (8-10) Sodium Chloride (Sodium Chloride 0.9%) 1,000 mls @ 100 mls/hr IV .Q10H [facility] Last Admin: 06/07/18 08:26 Dose: 100 mls/hr Aztreonam 1 gm/ Sodium (Chloride) 100 mls @ 100 mls/hr IVPB Q8 [facility]; Protocol Vancomycin HCl 1 gm/ Sodium (Chloride) 250 mls @ 125 mls/hr IVPB Q24H [facility] Lamotrigine (Lamictal) 200 mg PO Q12 [facility] Last Admin: 06/07/18 14:12 Dose: 200 mg Levetiracetam (Keppra) 2,000 mg PO Q12 [facility] Physical Exam - Constitutional Appears: Well - Head Exam Head Exam: ATRAUMATIC, NORMAL INSPECTION, NORMOCEPHALIC - Eye Exam Eye Exam: EOMI, Normal appearance, PERRL - ENT Exam ENT Exam: Mucous Membranes Moist, Normal Exam - Neck Exam Neck exam: Positive for: Normal Inspection - Respiratory Exam Respiratory Exam: Clear to Auscultation Bilateral, NORMAL BREATHING PATTERN - Cardiovascular Exam Cardiovascular Exam: REGULAR RHYTHM, +S1, +S2 - GI/Abdominal Exam GI & Abdominal Exam: Normal Bowel Sounds, Soft. absent: Tenderness - Rectal Exam Rectal Exam: Deferred - Extremities Exam Extremities exam: Positive for: normal inspection - Back Exam Back exam: NORMAL INSPECTION - Neurological Exam Neurological exam: Abnormal Gait, Altered, Oriented x3 Additional comments: Visually impaired, generalized weakness and atrophy of muscles with contracture and hyper-reflexia throughout. Results - Vital Signs Recent Vital Signs: Last Vital Signs Temp 98.1 F 06/07/18 16:54 Pulse 79 06/07/18 16:54 Resp 16 06/07/18 16:54 BP 105/67 06/07/18 16:54 Pulse Ox 96 06/07/18 16:54 - Labs Result Diagrams: 06/06/18 15:10 06/06/18 15:10 Labs: Laboratory Results - last 24 hr 06/06/18 06/06/18 06/07/18 15:10 18:15 10:00 Hemoglobin A1c 5.3 Urine Color Yellow Urine Clarity Cloudy Urine pH 8.0 Ur Specific [place] 1.018 Urine Protein 30 Urine Glucose (UA) Neg Urine Ketones Negative Urine Blood Moderate Urine Nitrate Positive H Urine Bilirubin Negative Urine Urobilinogen 0.2-1.0 Ur Leukocyte Esterase Large Urine RBC (Auto) 50 H Urine Microscopic WBC 133 H Urine Bacteria Rare Blood Type O POSITIVE Antibody Screen Negative BBK History Checked Patient has bt Assessment & Plan (1) Seizures Assessment and Plan: Continue current medications and follow-up with Dr. Vivas for titration or changing medications. The patient is already maxed out on 2 seizure medications, the addition of a third is unlikely to reduce the number of seizures, but may cause more side-effects. Thank you. Status: Chronic
[2018-06-07] MEDS: Aztreonam 1 GM in Sodium Chloride 0.9% 100 ML IVPB SCH (18:16)
[2018-06-07] MEDS ORDERED: Oxycodone/Acetaminophen 5/325 mg Tab PO PRN (18:52)
[2018-06-07] MEDS: Oxycodone/Acetaminophen 5/325 mg Tab PO PRN (23:30)
[2018-06-08] MEDS: Aztreonam 1 GM in Sodium Chloride 0.9% 100 ML IVPB SCH ×3 (01:10→17:20)
--- NOTE | 2018-06-08 12:03 | CP.PCM.PN ---
Subjective - Date & Time of Evaluation Date of Evaluation: 06/08/18 Time of Evaluation: 12:04 - Subjective Subjective: Patient agitated, confuse with delirium. This condition is related to the UTI and possible sepsis. Still c/s pending will regular admit the patient. As per hx when he presented with this clinical picture usually develops status epileptic with necessity to sedate him with respiratory support. Objective - Vital Signs/Intake and Output Vital Signs (last 24 hours): Temp Pulse Resp BP Pulse Ox 97.6 F 76 16 107/69 96 06/08/18 07:58 06/08/18 07:58 06/08/18 07:58 06/08/18 07:58 06/08/18 07:58 - Medications Medications: Current Medications Baclofen (Lioresal) 20 mg PO Q8 [facility] Last Admin: 06/08/18 08:21 Dose: 20 mg Fentanyl (Duragesic) 1 patch TD Q72H [facility]; Protocol Last Admin: 06/07/18 18:17 Dose: 1 patch Home Med (Dimethyl Fumarate [Tecfidera]) 240 mg PO Q12 [facility] Last Admin: 06/08/18 08:21 Dose: 240 mg Home Med (Oxycodone Hcl/Acetaminophen [Percocet 10-325 Mg Tablet]) 1 tab PO Q6 PRN PRN Reason: Pain, severe (8-10) Sodium Chloride (Sodium Chloride 0.9%) 1,000 mls @ 100 mls/hr IV .Q10H [facility] Last Admin: 06/07/18 08:26 Dose: 100 mls/hr Aztreonam 1 gm/ Sodium (Chloride) 100 mls @ 100 mls/hr IVPB Q8 [facility]; Protocol Last Admin: 06/08/18 08:24 Dose: 100 mls/hr Vancomycin HCl 1 gm/ Sodium (Chloride) 250 mls @ 125 mls/hr IVPB Q24H [facility] Last Admin: 06/07/18 18:18 Dose: 125 mls/hr Lamotrigine (Lamictal) 200 mg PO Q12 [facility] Last Admin: 06/08/18 08:21 Dose: 200 mg Levetiracetam (Keppra) 2,000 mg PO Q12 [facility] Last Admin: 06/08/18 08:20 Dose: 2,000 mg Oxycodone/Acetaminophen (Percocet 5/325 Mg Tab) 1 tab PO Q6 PRN PRN Reason: Pain, moderate (4-7) Stop: 06/10/18 18:53 Oxycodone/Acetaminophen (Percocet 5/325 Mg Tab) 2 tab PO Q6 PRN PRN Reason: Pain, severe (8-10) Stop: 06/10/18 18:54 Last Admin: 06/07/18 23:30 Dose: 2 tab - Labs Labs: 06/06/18 15:10 06/06/18 15:10 PT 11.9 Seconds (9.8-13.1) 06/06/18 15:10 INR 1.0 06/06/18 15:10 APTT 25.1 Seconds (25.6-37.1) L 06/06/18 15:10 - Constitutional Appears: Toxic, Agitated, Confused, Chronically Ill - Head Exam Head Exam: ATRAUMATIC, NORMAL INSPECTION, NORMOCEPHALIC - Eye Exam Eye Exam: Normal appearance - Neck Exam Neck Exam: Full ROM - Respiratory Exam Respiratory Exam: Decreased Breath Sounds - Cardiovascular Exam Cardiovascular Exam: REGULAR RHYTHM, +S1, +S2 - GI/Abdominal Exam GI & Abdominal Exam: Normal Bowel Sounds - Neurological Exam Neurological Exam: Altered, Motor Sensory Deficit - Psychiatric Exam Psychiatric exam: Agitated, Anxious - Skin Skin Exam: Pallor Assessment and Plan (1) Anxiety Status: Acute (2) Delirium due to general medical condition Status: Acute (3) ESBL (extended spectrum beta-lactamase) producing bacteria infection Status: Acute (4) Post-ictal state Status: Acute (5) Tonic-clonic seizure Status: Chronic (6) UTI (urinary tract infection) with pyuria Status: Acute (7) UTI (urinary tract infection), bacterial Status: Acute (8) COPD (chronic obstructive pulmonary disease) with chronic bronchitis Status: Chronic (9) Multiple sclerosis Status: Chronic (10) Paraplegia Status: Chronic (11) Recurrent seizures Status: Chronic - Assessment and Plan (Free Text) Plan: As above.
[2018-06-08] MEDS: Oxycodone/Acetaminophen 5/325 mg Tab PO PRN ×2 (17:25→23:42)
[2018-06-09] MEDS: Aztreonam 1 GM in Sodium Chloride 0.9% 100 ML IVPB SCH ×3 (00:06→17:38)
[2018-06-09] MEDS: Sodium Chloride 0.9% 1,000 ML IV SCH (03:14)
--- NOTE | 2018-06-09 14:05 | CP.PCM.PCO ---
Physician Communication Note - Physician Communication Note Physician Communication Note: VRE urine- ? PCN allergy + interaction between linezolid and fentanyl
--- NOTE | 2018-06-09 14:09 | CP.PCM.PN ---
Subjective - Date & Time of Evaluation Date of Evaluation: 06/09/18 Time of Evaluation: 09:00 - Subjective Subjective: afeb nad VRE urine- sens to linezolid but interacts with fentanyl blood cultures neg thus far - observe for now repeat cultures sent Objective - Vital Signs/Intake and Output Vital Signs (last 24 hours): Temp Pulse Resp BP Pulse Ox 97.9 F 65 18 106/61 96 06/09/18 12:45 06/09/18 12:45 06/09/18 12:45 06/09/18 12:45 06/09/18 12:45 Intake and Output: 06/09/18 06/09/18 06:59 18:59 Intake Total 1000 Output Total 900 Balance 100 - Medications Medications: Current Medications Baclofen (Lioresal) 20 mg PO Q8 [facility] Last Admin: 06/09/18 09:19 Dose: 20 mg Fentanyl (Duragesic) 1 patch TD Q72H [facility]; Protocol Last Admin: 06/07/18 18:17 Dose: 1 patch Home Med (Dimethyl Fumarate [Tecfidera]) 240 mg PO Q12 [facility] Last Admin: 06/09/18 09:19 Dose: 240 mg Sodium Chloride (Sodium Chloride 0.9%) 1,000 mls @ 100 mls/hr IV .Q10H [facility] Last Admin: 06/09/18 03:14 Dose: 100 mls/hr Aztreonam 1 gm/ Sodium (Chloride) 100 mls @ 100 mls/hr IVPB Q8 [facility]; Protocol Last Admin: 06/09/18 09:50 Dose: 100 mls/hr Lamotrigine (Lamictal) 200 mg PO Q12 [facility] Last Admin: 06/09/18 09:19 Dose: 200 mg Levetiracetam (Keppra) 2,000 mg PO Q12 [facility] Last Admin: 06/09/18 09:19 Dose: 2,000 mg Lorazepam (Ativan) 1 mg PO Q8 PRN PRN Reason: Agitation Last Admin: 06/08/18 23:42 Dose: 1 mg Oxycodone/Acetaminophen (Percocet 5/325 Mg Tab) 1 tab PO Q6 PRN PRN Reason: Pain, moderate (4-7) Stop: 06/10/18 18:53 Oxycodone/Acetaminophen (Percocet 5/325 Mg Tab) 2 tab PO Q6 PRN PRN Reason: Pain, severe (8-10) Stop: 06/10/18 18:54 Last Admin: 06/08/18 23:42 Dose: 2 tab - Labs Labs: 06/06/18 15:10 06/06/18 15:10 PT 11.9 Seconds (9.8-13.1) 06/06/18 15:10 INR 1.0 06/06/18 15:10 APTT 25.1 Seconds (25.6-37.1) L 06/06/18 15:10 - Constitutional Appears: Non-toxic, Confused, Chronically Ill - Head Exam Head Exam: NORMOCEPHALIC - Eye Exam Eye Exam: absent: Scleral icterus - ENT Exam ENT Exam: Mucous Membranes Dry, Normal Oropharynx, TM's Normal Bilaterally - Neck Exam Neck Exam: absent: Lymphadenopathy, Thyromegaly - Respiratory Exam Respiratory Exam: Decreased Breath Sounds, Prolonged Expiratory Phase, Rhonchi. absent: Respiratory Distress - Cardiovascular Exam Cardiovascular Exam: REGULAR RHYTHM, +S1, +S2 - GI/Abdominal Exam GI & Abdominal Exam: Distended, Soft. absent: Tenderness - Rectal Exam Rectal Exam: Deferred - Exam Exam: NORMAL INSPECTION - Extremities Exam Extremities Exam: absent: Pedal Edema - Back Exam Back Exam: absent: CVA tenderness (L), CVA tenderness (R), paraspinal tenderness - Neurological Exam Neurological Exam: Alert, Awake, CN II-XII Intact, Motor Sensory Deficit Neuro motor strength exam: Left Upper Extremity: 3, Right Upper Extremity: 4, Left Lower Extremity: 2/1, Right Lower Extremity: 2/1 - Psychiatric Exam Psychiatric exam: Depressed - Skin Skin Exam: Dry Assessment and Plan (1) UTI (urinary tract infection) Status: Acute (2) UTI (urinary tract infection) due to urinary indwelling catheter Status: Acute (3) UTI (urinary tract infection) due to urinary indwelling catheter Status: Acute (4) Seizures complicating infection Status: Acute (5) Seizures complicating infection Status: Acute (6) Multiple sclerosis Status: Acute (7) Multiple sclerosis exacerbation Status: Acute - Assessment and Plan (Free Text) Assessment: VRE urine- sens to linezolid but interacts with fentanyl blood cultures neg thus far - observe for now repeat cultures sent
--- NOTE | 2018-06-09 17:57 | CP.PCM.PN ---
Subjective - Date & Time of Evaluation Date of Evaluation: 06/09/18 Time of Evaluation: 12:10 - Subjective Subjective: Minimal improvement. Still confuse agitated Objective - Vital Signs/Intake and Output Vital Signs (last 24 hours): Temp Pulse Resp BP Pulse Ox 98.3 F 68 16 99/62 L 96 06/09/18 16:56 06/09/18 16:56 06/09/18 16:56 06/09/18 16:56 06/09/18 16:56 Intake and Output: 06/09/18 06/09/18 11:59 23:59 Intake Total 1000 Output Total 900 Balance 100 - Medications Medications: Current Medications Baclofen (Lioresal) 20 mg PO Q8 [facility] Last Admin: 06/09/18 17:38 Dose: 20 mg Fentanyl (Duragesic) 1 patch TD Q72H [facility]; Protocol Last Admin: 06/07/18 18:17 Dose: 1 patch Home Med (Dimethyl Fumarate [Tecfidera]) 240 mg PO Q12 [facility] Last Admin: 06/09/18 09:19 Dose: 240 mg Sodium Chloride (Sodium Chloride 0.9%) 1,000 mls @ 100 mls/hr IV .Q10H [facility] Last Admin: 06/09/18 03:14 Dose: 100 mls/hr Aztreonam 1 gm/ Sodium (Chloride) 100 mls @ 100 mls/hr IVPB Q8 [facility]; Protocol Last Admin: 06/09/18 17:38 Dose: 100 mls/hr Lamotrigine (Lamictal) 200 mg PO Q12 [facility] Last Admin: 06/09/18 09:19 Dose: 200 mg Levetiracetam (Keppra) 2,000 mg PO Q12 [facility] Last Admin: 06/09/18 09:19 Dose: 2,000 mg Lorazepam (Ativan) 1 mg PO Q8 PRN PRN Reason: Agitation Last Admin: 06/08/18 23:42 Dose: 1 mg Oxycodone/Acetaminophen (Percocet 5/325 Mg Tab) 1 tab PO Q6 PRN PRN Reason: Pain, moderate (4-7) Stop: 06/10/18 18:53 Oxycodone/Acetaminophen (Percocet 5/325 Mg Tab) 2 tab PO Q6 PRN PRN Reason: Pain, severe (8-10) Stop: 06/10/18 18:54 Last Admin: 06/08/18 23:42 Dose: 2 tab - Labs Labs: 06/06/18 15:10 06/06/18 15:10 PT 11.9 Seconds (9.8-13.1) 06/06/18 15:10 INR 1.0 06/06/18 15:10 APTT 25.1 Seconds (25.6-37.1) L 06/06/18 15:10 - Constitutional Appears: Combative, Agitated, Confused, Chronically Ill - Head Exam Head Exam: ATRAUMATIC, NORMAL INSPECTION, NORMOCEPHALIC - Eye Exam Eye Exam: Normal appearance - ENT Exam ENT Exam: Mucous Membranes Moist - Neck Exam Neck Exam: Full ROM - Respiratory Exam Respiratory Exam: Decreased Breath Sounds - Cardiovascular Exam Cardiovascular Exam: REGULAR RHYTHM, +S1, +S2 - GI/Abdominal Exam GI & Abdominal Exam: Soft, Normal Bowel Sounds - Extremities Exam Extremities Exam: Pedal Edema - Neurological Exam Neurological Exam: Altered, Motor Sensory Deficit - Psychiatric Exam Psychiatric exam: Agitated, Anxious - Skin Skin Exam: Pallor Assessment and Plan (1) Anxiety Status: Acute (2) Delirium due to general medical condition Status: Acute (3) ESBL (extended spectrum beta-lactamase) producing bacteria infection Status: Acute (4) Post-ictal state Status: Acute (5) Tonic-clonic seizure Status: Chronic (6) UTI (urinary tract infection) with pyuria Status: Acute (7) UTI (urinary tract infection), bacterial Status: Acute (8) COPD (chronic obstructive pulmonary disease) with chronic bronchitis Status: Chronic (9) Multiple sclerosis Status: Chronic (10) Paraplegia Status: Chronic (11) Recurrent seizures Status: Chronic - Assessment and Plan (Free Text) Plan: As above
[2018-06-10] MEDS: Aztreonam 1 GM in Sodium Chloride 0.9% 100 ML IVPB SCH ×3 (01:58→17:07)
[2018-06-10] MEDS: Lactobacillus Acidophilus 500 MU Cap PO SCH ×2 (09:16→17:04)
--- NOTE | 2018-06-10 12:21 | CP.PCM.PN ---
Subjective - Date & Time of Evaluation Date of Evaluation: 06/10/18 Time of Evaluation: 12:19 - Subjective Subjective: At present lethargic.At times agitated still confuse in delirium. Patient in need of 10 days of antibx when stable will transfer to SNF Objective - Vital Signs/Intake and Output Vital Signs (last 24 hours): Temp Pulse Resp BP Pulse Ox 98.1 F 83 20 113/70 96 06/10/18 07:52 06/10/18 07:52 06/10/18 07:52 06/10/18 07:52 06/10/18 07:52 - Medications Medications: Current Medications Baclofen (Lioresal) 20 mg PO Q8 [facility] Last Admin: 06/10/18 09:16 Dose: 20 mg Fentanyl (Duragesic) 1 patch TD Q72H [facility]; Protocol Last Admin: 06/07/18 18:17 Dose: 1 patch Home Med (Dimethyl Fumarate [Tecfidera]) 240 mg PO Q12 [facility] Last Admin: 06/10/18 09:15 Dose: 240 mg Sodium Chloride (Sodium Chloride 0.9%) 1,000 mls @ 100 mls/hr IV .Q10H [facility] Last Admin: 06/09/18 03:14 Dose: 100 mls/hr Aztreonam 1 gm/ Sodium (Chloride) 100 mls @ 100 mls/hr IVPB Q8 [facility]; Protocol Last Admin: 06/10/18 09:16 Dose: 100 mls/hr Lactobacillus Acidophilus (Bacid Acidophilus) 1 cap PO BID [facility] Last Admin: 06/10/18 09:16 Dose: 1 cap Lamotrigine (Lamictal) 200 mg PO Q12 [facility] Last Admin: 06/10/18 09:15 Dose: 200 mg Levetiracetam (Keppra) 2,000 mg PO Q12 [facility] Last Admin: 06/10/18 09:16 Dose: 2,000 mg Lorazepam (Ativan) 1 mg PO Q8 PRN PRN Reason: Agitation Last Admin: 06/08/18 23:42 Dose: 1 mg Oxycodone/Acetaminophen (Percocet 5/325 Mg Tab) 1 tab PO Q6 PRN PRN Reason: Pain, moderate (4-7) Stop: 06/10/18 18:53 Oxycodone/Acetaminophen (Percocet 5/325 Mg Tab) 2 tab PO Q6 PRN PRN Reason: Pain, severe (8-10) Stop: 06/10/18 18:54 Last Admin: 06/08/18 23:42 Dose: 2 tab - Labs Labs: 06/06/18 15:10 06/06/18 15:10 PT 11.9 Seconds (9.8-13.1) 06/06/18 15:10 INR 1.0 06/06/18 15:10 APTT 25.1 Seconds (25.6-37.1) L 06/06/18 15:10 - Constitutional Appears: Agitated, Confused, Chronically Ill - Head Exam Head Exam: ATRAUMATIC, NORMAL INSPECTION, NORMOCEPHALIC - Eye Exam Eye Exam: Normal appearance - ENT Exam ENT Exam: Mucous Membranes Moist - Neck Exam Neck Exam: Full ROM - Respiratory Exam Respiratory Exam: Decreased Breath Sounds - Cardiovascular Exam Cardiovascular Exam: REGULAR RHYTHM, +S1, +S2 - GI/Abdominal Exam GI & Abdominal Exam: Soft, Normal Bowel Sounds - Neurological Exam Neurological Exam: Altered, Motor Sensory Deficit - Psychiatric Exam Psychiatric exam: Agitated, Anxious - Skin Skin Exam: Pallor Assessment and Plan (1) Anxiety Status: Acute (2) Delirium due to general medical condition Status: Acute (3) ESBL (extended spectrum beta-lactamase) producing bacteria infection Status: Acute (4) Post-ictal state Status: Acute (5) Tonic-clonic seizure Status: Chronic (6) UTI (urinary tract infection) with pyuria Status: Acute (7) UTI (urinary tract infection), bacterial Status: Acute (8) COPD (chronic obstructive pulmonary disease) with chronic bronchitis Status: Chronic (9) Multiple sclerosis Status: Chronic (10) Paraplegia Status: Chronic (11) Recurrent seizures Status: Chronic - Assessment and Plan (Free Text) Plan: As above
--- NOTE | 2018-06-10 12:21 | PQF ---
PROVIDER RESPONSE TEXT: UTI is related to urinary retention with neurologic deficit. REVIEWER QUERY TEXT: Conflicting Documentation Clarification A single mention or documentation of multiple diagnoses for the same clinical presentation appears in the record. Please clarify which diagnoses are ruled in and which are ruled out for this admission ID: UTI due to urinary indwelling catheter, + VRE Please clarify the diagnosis/diagnoses. Please also document if the condition is: -- Confirmed and current -- Confirmed, treated and resolved -- Ruled out -- Other, please specify The patient's Clinical Indicators include: Patient with multiple sclerosis with severe neuro deficit paraplegia and bedridden. Has a chronic fol ey catheter. Presented with status epileticus. Code stroke called in the ER Delirium. Afebrile, WBC 8.0, URINE CS: Klebsiella Pneumoniae, VRE Rx: IVAB Query created by: Ava Skelton on 06/10/2018 9:58 AM Electronically signed by: Leo Morris MD 06/10/2018 12:18 PM
--- NOTE | 2018-06-10 12:22 | PQF ---
PROVIDER RESPONSE TEXT: UTI etiology is related to urinary retention with neurologic deficit. REVIEWER QUERY TEXT: Documentation Clarification Your help is requested in clarifying the following clinical documentation, if you can please further specify in the medical record and discharge summary. Please clarify after workup if this is a UTI or UTI due to indwelling urinary catheter. The patient's Clinical Indicators include: Attending: UTI ID: UTI due to urinary indwelling catheter. URINE CS: K. Pneumoniae, VRE RX: IVAB Query created by: Ava Skelton on 06/10/2018 10:00 AM Electronically signed by: Leo Morris MD 06/10/2018 12:18 PM
[2018-06-10] MEDS ORDERED: Oxycodone/Acetaminophen 5/325 mg Tab PO PRN ×2 (21:49→21:50)
[2018-06-11] MEDS: Aztreonam 1 GM in Sodium Chloride 0.9% 100 ML IVPB SCH ×3 (00:42→14:00)
[2018-06-11] MEDS: Sodium Chloride 0.9% 1,000 ML IV SCH (05:40)
[2018-06-11 06:14] LABS: SQUAMOUS EPITHIAL < 1 /hpf (0-5); URINE BACTERIA FEW (<OCC); URINE BILIRUBIN NEGATIVE (NEGATIVE); URINE BLOOD LARGE (NEGATIVE); URINE CALCIUM OXALATE CRYSTALS RARE /hpf (<OCC); URINE CLARITY TURBID (Clear); URINE COLOR YELLOW (YELLOW); URINE GLUCOSE (UA) NEG (Normal); URINE LEUKOCYTE ESTERASE MOD Leu/uL (Negative); URINE PROTEIN 100 mg/dL (NEGATIVE); URINE UROBILINOGEN 0.2-1.0 mg/dL (0.2-1.0)
--- NOTE | 2018-06-11 07:17 | CP.PCM.DIS ---
Provider - Provider Date of Admission: 06/08/18 12:05 Attending physician: Leo Morris MD Time Spent in preparation of Discharge (in minutes): 30 Diagnosis - Discharge Diagnosis (1) Anxiety Status: Acute Priority: Medium (2) Delirium due to general medical condition Status: Acute (3) ESBL (extended spectrum beta-lactamase) producing bacteria infection Status: Acute (4) Post-ictal state Status: Acute (5) Tonic-clonic seizure Status: Chronic (6) UTI (urinary tract infection) with pyuria Status: Acute Onset Date: ~02/19/17 (7) UTI (urinary tract infection), bacterial Status: Acute (8) COPD (chronic obstructive pulmonary disease) with chronic bronchitis Status: Chronic (9) Multiple sclerosis Status: Chronic (10) Paraplegia Status: Chronic (11) Recurrent seizures Status: Chronic Hospital Course - Lab Results Lab Results: Micro Results 06/07/18 19:38 Blood-Venous Blood Culture - Preliminary NO GROWTH AFTER 3 DAYS 06/07/18 19:28 Blood-Venous Blood Culture - Preliminary NO GROWTH AFTER 3 DAYS 06/07/18 18:54 Urine,Taylor Urine Culture - Final Klebsiella Pneumoniae Ssp Pneu Vancomycin Res E.faecalis Most Recent Lab Values WBC 8.0 K/uL (4.8-10.8) 06/06/18 15:10 RBC 4.79 Mil/uL (4.40-5.90) 06/06/18 15:10 Hgb 14.4 g/dL (12.0-18.0) 06/06/18 15:10 Hct 43.5 % (35.0-51.0) 06/06/18 15:10 MCV 90.9 fl (80.0-94.0) 06/06/18 15:10 MCH 30.1 pg (27.0-31.0) 06/06/18 15:10 MCHC 33.2 g/dL (33.0-37.0) 06/06/18 15:10 RDW 14.1 % (11.5-14.5) 06/06/18 15:10 Plt Count 298 K/uL (130-400) 06/06/18 15:10 MPV 7.3 fl (7.2-11.7) 06/06/18 15:10 Neut % (Auto) 73.2 % (50.0-75.0) 06/06/18 15:10 Lymph % (Auto) 15.3 % (20.0-40.0) L 06/06/18 15:10 [place] % (Auto) 7.6 % (0.0-10.0) 06/06/18 15:10 Eos % (Auto) 3.2 % (0.0-4.0) 06/06/18 15:10 Baso % (Auto) 0.7 % (0.0-2.0) 06/06/18 15:10 Neut # (Auto) 5.8 K/uL (1.8-7.0) 06/06/18 15:10 Lymph # (Auto) 1.2 K/uL (1.0-4.3) 06/06/18 15:10 [place] # (Auto) 0.6 K/uL (0.0-0.8) 06/06/18 15:10 Eos # (Auto) 0.3 K/uL (0.0-0.7) 06/06/18 15:10 Baso # (Auto) 0.1 K/uL (0.0-0.2) 06/06/18 15:10 PT 11.9 Seconds (9.8-13.1) 06/06/18 15:10 INR 1.0 06/06/18 15:10 APTT 25.1 Seconds (25.6-37.1) L 06/06/18 15:10 Sodium 139 mmol/l (132-148) 06/06/18 15:10 Potassium 4.7 MMOL/L (3.6-5.0) 06/06/18 15:10 Chloride 105 mmol/L (98-107) 06/06/18 15:10 Carbon Dioxide 25 mmol/L (22-30) 06/06/18 15:10 Anion Gap 14 (10-20) 06/06/18 15:10 BUN 14 mg/dl (9-20) 06/06/18 15:10 Creatinine 0.6 mg/dl (0.8-1.5) L 06/06/18 15:10 Est GFR ( Amer) > 60 06/06/18 15:10 Est GFR (Non-Af Amer) > 60 06/06/18 15:10 POC Glucose (mg/dL) 100 mg/dL (65-110) 06/06/18 14:47 Random Glucose 88 mg/dL (75-110) 06/06/18 15:10 Hemoglobin A1c 5.3 % (4.2-6.5) 06/06/18 15:10 Calcium 9.5 mg/dL (8.4-10.2) 06/06/18 15:10 Total Bilirubin 0.4 mg/dl (0.2-1.3) 06/06/18 15:10 AST 19 U/L (17-59) 06/06/18 15:10 ALT 30 U/L (21-72) 06/06/18 15:10 Alkaline Phosphatase 84 U/L (38-126) 06/06/18 15:10 Troponin I < 0.0120 ng/mL (0.00-0.120) 06/06/18 15:10 Total Protein 7.9 G/DL (6.3-8.2) 06/06/18 15:10 Albumin 4.3 g/dL (3.5-5.0) 06/06/18 15:10 Globulin 3.6 gm/dL (2.2-3.9) 06/06/18 15:10 Albumin/Globulin Ratio 1.2 (1.0-2.1) 06/06/18 15:10 Triglycerides 293 mg/DL (0-149) H 06/06/18 15:10 Cholesterol 174 mg/dL (0-199) 06/06/18 15:10 LDL Cholesterol Direct 97 mg/dL (0-129) 06/06/18 15:10 HDL Cholesterol 33 MG/DL (30-70) 06/06/18 15:10 Urine Color Yellow (YELLOW) 06/11/18 04:30 Urine Clarity Turbid (Clear) 06/11/18 04:30 Urine pH 5.0 (5.0-8.0) 06/11/18 04:30 Ur Specific [place] 1.028 (1.003-1.030) 06/11/18 04:30 Urine Protein 100 mg/dL (NEGATIVE) 06/11/18 04:30 Urine Glucose (UA) Neg mg/dL (Normal) 06/11/18 04:30 Urine Ketones 80 mg/dL (NEGATIVE) 06/11/18 04:30 Urine Blood Large (NEGATIVE) 06/11/18 04:30 Urine Nitrate Positive (NEGATIVE) H 06/11/18 04:30 Urine Bilirubin Negative (NEGATIVE) 06/11/18 04:30 Urine Urobilinogen 0.2-1.0 mg/dL (0.2-1.0) 06/11/18 04:30 Ur Leukocyte Esterase Mod [place]/uL (Negative) 06/11/18 04:30 Urine RBC (Auto) 32 /hpf (0-3) H 06/11/18 04:30 Urine Microscopic WBC 49 /hpf (0-5) H 06/11/18 04:30 Ur Squamous Epith Cells < 1 /hpf (0-5) 06/11/18 04:30 Calcium Oxalate Crystal Rare /hpf (<OCC) 06/11/18 04:30 Urine Bacteria Few (<OCC) H 06/11/18 04:30 Blood Type O POSITIVE 06/06/18 18:15 Antibody Screen Negative 06/06/18 18:15 BBK History Checked Patient has bt 06/06/18 18:15 - Hospital Course Hospital Course: 52 yo male with past medical hx Dementia, Depression, Deep Vein Thrombosis, Kidney Stones, Multiple Sclerosis with severe neuro deficit paraplegia bed ridding since 2008, Peripheral Edema , Pneumonia, Pulmonary Embolism , Chronic Kidney Disease, Seizures, recurrent UTI and sepsis presented in ER with status epileptic. In delirium and post ictal with left side of the body with motor deficit. A UA reveled UTI. Patient has hx of status epilepticus and sepsis with recurrent UTI. Patient responded to rx will dc to SNF for 10 days of antibx rx Discharge Exam - Head Exam Head Exam: ATRAUMATIC, NORMAL INSPECTION, NORMOCEPHALIC - Neck Exam Neck exam: Full Rom - Respiratory Exam Respiratory Exam: Clear to PA & Lateral - Cardiovascular Exam Cardiovascular Exam: REGULAR RHYTHM, +S1, +S2 - Extremities Exam Extremities exam: pedal edema - Neurological Exam Neurological exam: Altered, Motor Sensory Deficit - Psychiatric Exam Psychiatric exam: Depressed - Skin Skin Exam: Pallor Discharge Plan - Discharge Medications Prescriptions: Aztreonam 1 Gm in NS 100mL [Azactam 1 gm] 0 gm IV Q8 10 Days #30 ml - Follow Up Plan Condition: GUARDED Disposition: REHAB FACILITY/REHAB UNIT Instructions: Urinary Tract Infection, Adult (DC), Seizures, Adult (DC) Referrals: Leo Morris MD [Family Provider] -
[2018-06-11] MEDS: Lactobacillus Acidophilus 500 MU Cap PO SCH ×2 (08:58→16:50)
[2018-06-11] MEDS ORDERED: Lidocaine 1% Inj (20ml) ONE (13:01)
--- NOTE | 2018-06-11 13:31 | PCM.SURG1 ---
Surgeon's Initial Post Op Note - Surgeon's Notes Surgeon: Hany Spring MD Cage Unloader: NONE Type of Anesthesia: Local Pre-Operative Diagnosis: Poor venous access Operative Findings: US showed patent right basilic vein Post-Operative Diagnosis: Poor venous access Operation Performed: Single lumen picc right arm 37 cm Specimen/Specimens Removed: none Estimated Blood Loss: EBL {In ML}: 2 Blood Products Given: N/A Drains Used: No Drains Post-Op Condition: Fair Date of Surgery/Procedure: 06/11/18 Time of Surgery/Procedure: 13:15
--- NOTE | 2018-06-11 13:36 | VASCULAR ---
PROCEDURE: Date of procedure: Procedure: 1. Placement of a right arm PICC with ultrasound and fluoroscopic guidance, CPT 04872 2. PICC tip confirmation with spot radiograph and is in the superior vena cava Medications: 1 percent lidocaine Total Fluoro time: 2. 4 seconds Radiation: 0.26 MGy EBL: 2 cc HISTORY: Infection requiring long-term IV antibiotics TECHNIQUE: Following informed consent and procedure time-out, the patient was placed supine on the interventional table and the right arm prepped and draped in the usual sterile fashion. Ultrasound showed a patent and compressible right basilic vein. After the skin was anesthetized with lidocaine, the basilic vein was accessed with micro micropuncture technique using ultrasound guidance. A guidewire was then advanced under fluoroscopic guidance into the superior vena cava. An image documenting ultrasound guidance for vascular access was permanently saved. The length of the single-lumen 4 [place] PICC was trimmed to 37 centimeters and advanced through a peel-away sheath. The PICC was position with tip of PICC confirm a spot radiograph the superior vena cava. The PICC was secured to the patient's skin. The PICC was flushed. A biopatch and sterile dressing was applied. IMPRESSION: Placement of a single-lumen 4 [place] PICC trimmed to 37 centimeters via right basilic vein. The tip of the PICC is confirmed with spot radiograph and is in the superior vena cava.
[2018-06-11 20:30] VITALS: BP 115/74; PULSE 81; RESP 16; TEMP 98.6; O2SAT 95
[2018-06-11] MEDS ORDERED: Aztreonam 1 GM in Sodium Chloride 0.9% 100 ML IVPB SCH (22:00)
== END 2018-06-11 21:00 | DRG 690 ==
LOC: H.ER 14:32 → H.ERHOLD 18:54 → H.TEL 06-07 11:13 → OBSVTOIN 06-08 12:05 → H.TEL 06-09 16:32
PROVIDERS: ADMIT Internal Medicine; ATTEND Internal Medicine
PROC: 02HV33Z Insertion of Infusion Device into Superior Vena Cava, Percutaneous Approach (ICD-10-PCS; principal; 2018-06-10)
PROC: B548ZZA Ultrasonography of Superior Vena Cava, Guidance (ICD-10-PCS; 2018-06-10)
PROC: 3E04329 Introduction of Other Anti-infective into Central Vein, Percutaneous Approach (ICD-10-PCS; 2018-06-10)
DX: N39.0 Urinary tract infection, site not specified (principal); F05 Delirium due to known physiological condition; G82.20 Paraplegia, unspecified; R33.8 Other retention of urine; B96.1 Klebsiella pneumoniae [K. pneumoniae] as the cause of diseases classified elsewhere; B95.2 Enterococcus as the cause of diseases classified elsewhere; G40.901 Epilepsy, unspecified, not intractable, with status epilepticus; G35 Multiple sclerosis; F03.90 Unspecified dementia, unspecified severity, without behavioral disturbance, psychotic disturbance, mood disturbance, and anxiety; Z16.12 Extended spectrum beta lactamase (ESBL) resistance; Z16.21 Resistance to vancomycin; J44.9 Chronic obstructive pulmonary disease, unspecified; I12.9 Hypertensive chronic kidney disease with stage 1 through stage 4 chronic kidney disease, or unspecified chronic kidney disease; N18.9 Chronic kidney disease, unspecified; F41.9 Anxiety disorder, unspecified; E78.00 Pure hypercholesterolemia, unspecified; H54.62 Unqualified visual loss, left eye, normal vision right eye; M06.9 Rheumatoid arthritis, unspecified; Z74.01 Bed confinement status; Z86.711 Personal history of pulmonary embolism; Z86.718 Personal history of other venous thrombosis and embolism; Z87.440 Personal history of urinary (tract) infections; Z86.19 Personal history of other infectious and parasitic diseases; Z87.442 Personal history of urinary calculi; Z87.01 Personal history of pneumonia (recurrent)

== ENCOUNTER 2018-06-11 16:11 | Inpatient (IN) | payer OTHER ==
[2018-06-11 21:15] VITALS: BMI 27.2
[2018-06-11] MEDS ORDERED: Aztreonam 1 GM in Sodium Chloride 0.9% 100 ML IVPB ONE (23:00)
[2018-06-12] MEDS: Aztreonam 1 GM in Sodium Chloride 0.9% 100 ML IVPB SCH ×3 (00:23→17:08)
[2018-06-12] MEDS ORDERED: Patient's Own Med (Aztreonam 1 Gm In Ns 100ml [Azactam 1 Gm] 1 GM) IV SCH (01:00)
[2018-06-12] MEDS: Lactobacillus Acidophilus 500 MU Cap PO SCH ×2 (08:19→17:08)
[2018-06-12 08:55] VITALS: RESP 20
[2018-06-12] MEDS: Oxycodone/Acetaminophen 5/325 mg Tab PO PRN ×2 (09:40→22:10)
--- NOTE | 2018-06-12 12:56 | CP.PCM.CON ---
History of Present Illness - History of Present Illness History of Present Illness: 52 yo male presented in ER with status epilepticus. 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, denies smoking, alcohol Allergies Cefazolin Meds reviewed Review of Systems - Review of Systems All systems: reviewed and no additional remarkable complaints except - Constitutional Constitutional: Anorexia - EENT Eyes: As Per HPI Ears: absent: As Per HPI, Decreased Hearing, Ear Discharge, Ear Pain, Tinnitus, Abnormal Hearing, Disequilibrium, Dizziness, Other Nose/Mouth/Throat: absent: As Per HPI, Epistaxis, Nasal Congestion, Nasal Discharge, Nasal Obstruction, Nasal Trauma, Nose Pain, Post Nasal Drip, Sinus Pain, Sinus Pressure, Bleeding Gums, Change in Voice, Dental Pain, Dry Mouth, Dysphagia, Halitosis, Hoarsness, Lip Swelling, Mouth Lesions, Mouth Pain, Odynophagia, Sore Throat, Throat Swelling, Tongue Swelling, Facial Pain, Neck Pain, Neck Mass, Other - Cardiovascular Cardiovascular: absent: As Per HPI, Acrocyanosis, Chest Pain, Chest Pain at Rest, Chest Pain with Activity, Claudication, Diaphoresis, Dyspnea, Dyspnea on Exertion, Edema, Irregular Heart Rhythm, Pain Radiating to Arm/Neck/Jaw, Leg Edema, Leg Ulcers, Lightheadedness, Orthopnea, Palpitations, Paroxysmal Nocturnal Dyspnea, Pedal Edema, Radiating Pain, Rapid Heart Rate, Slow Heart R ate, Syncope, Other - Respiratory Respiratory: absent: As Per HPI, Cough, Dyspnea, Hemoptysis, Dyspnea on Exertion, Wheezing, Snoring, Stridor, Pain on Inspiration, Chest Congestion, Excessive Mucous Production, Change in Mucous Color, Pain with Coughing, Other - Gastrointestinal Gastrointestinal: absent: As Per HPI, Abdominal Pain, Belching, Bloating, Change in Bowel Habits, Change in Stool Character, Coffee Ground Emesis, Constipation, Cramping, Diarrhea, Dyspepsia, Dysphagia, Early Satiety, Excessive Flatus, Fecal Incontinence, Heartburn, Hematemesis, Hematochezia, Loose Stools, Melena, Nausea, Odynophagia, Temesmus, Vomiting, Other - Genitourinary Genitourinary: As Per HPI - Musculoskeletal Musculoskeletal: As Per HPI - Integumentary Integumentary: absent: As Per HPI, Acne, Alopecia, Bleeding Lesions, Change in Hair, Change in Nails, Change in Pigmentation, Changing Lesions, Dry Skin, Erythema, Furuncle, Hirsutism, Lesions, New Lesions, Non-Healing Lesions, Photosensitivity, Pruritus, Rash, Skin Pain, Skin Ulcer, Sores, Striae, Swelling, Unusual Bruising, Wounds, Jaundice, Other - Neurological Neurological: As Per HPI - Psychiatric Psychiatric: absent: As Per HPI, Abnormal Sleep Pattern, Anhedonia, Anxiety, Auditory Hallucinations, Behavioral Changes, Change in Appetite, Change in Libido, Confusion, Depression, Difficulty Concentrating, Hallucinations, Homicidal Ideation, Hopelessness, Irritability, Memory Loss, Mood Swings, Panic Attacks, Paranoia, Suicidal Ideation, Visual Hallucinations, Tactile Hallucinations, Other - Endocrine Endocrine: absent: As Per HPI, Change in Body Appearance, Change in Libido, Cold Intolorance, Deepening of Voice, Excessive Sweating, Fatigue, Flushing, Heat Intolorance, Increase in Ring/Shoe/Hat Size, Palpitations, Polydipsia, Polyphagia, Polyuria, Other - Hematologic/Lymphatic Hematologic: absent: As Per HPI, Easy Bleeding, Easy Bruising, Lymphadenopathy, Other Past Patient History - Infectious Disease Hx of Infectious Diseases: None - Tetanus Immunizations Tetanus Immunization: Unknown - Past Medical History & Family History Past Medical History?: Yes - Past Social History Smoking Status: Never Smoked - CARDIAC Hx Cardiac Disorders: Yes - PULMONARY Hx Respiratory Disorders: Yes - NEUROLOGICAL Hx Neurological Disorder: Yes - HEENT Hx HEENT Problems: Yes (Poor vision, L eye) - RENAL Hx Chronic Kidney Disease: Yes - ENDOCRINE/METABOLIC Hx Endocrine Disorders: No - HEMATOLOGICAL/ONCOLOGICAL Hx Anemia: Yes Hx Human Immunodeficiency Virus (HIV): No - INTEGUMENTARY Hx Dermatological Problems: No - MUSCULOSKELETAL/RHEUMATOLOGICAL Hx Arthritis: Yes (BACK) Hx Rheumatoid Arthritis: Yes - GASTROINTESTINAL Hx Gastrointestinal Disorders: Yes - GENITOURINARY/GYNECOLOGICAL Hx Genitourinary Disorders: Yes Hx Incontinence: Yes Hx Urinary Tract Infection: Yes (Recurrent) Other/Comment: 2wF to drainage bag intact - PSYCHIATRIC Hx Psychophysiologic Disorder: Yes - SURGICAL HISTORY Hx Surgeries: Yes Other/Comment: cysto with removal of stent 05/19/16- kidney stones - ANESTHESIA Hx Anesthesia: Yes Hx Anesthesia Reactions: No Hx Malignant Hyperthermia: No Meds Allergies/Adverse Reactions: Allergies Allergy/AdvReac Type Severity Reaction Status Date / Time cefazolin Allergy RASH, Verified 06/06/18 14:37 ITCHINESS - Medications Medications: Current Medications Baclofen (Lioresal) 20 mg PO Q8 [facility] Fentanyl (Duragesic) 1 patch TD Q72H [facility]; Protocol Home Med (Dimethyl Fumarate [Tecfidera]) 240 mg PO Q12 [facility] Home Med (Oxycodone Hcl/Acetaminophen [Percocet 10-325 Mg Tablet]) 1 tab PO Q6 PRN PRN Reason: Pain, severe (8-10) Sodium Chloride (Sodium Chloride 0.9%) 1,000 mls @ 100 mls/hr IV .Q10H [facility] Last Admin: 06/07/18 08:26 Dose: 100 mls/hr Lamotrigine (Lamictal) 200 mg PO Q12 [facility] Last Admin: 06/07/18 14:12 Dose: 200 mg Levetiracetam (Keppra) 2,000 mg PO Q12 [facility] Physical Exam - Constitutional Appears: No Acute Distress, Confused, Chronically Ill - Head Exam Head Exam: ATRAUMATIC, NORMAL INSPECTION, NORMOCEPHALIC - Eye Exam Eye Exam: absent: Scleral icterus - ENT Exam ENT Exam: Mucous Membranes Dry, Normal External Ear Exam - Neck Exam Neck exam: Negative for: Lymphadenopathy, Thyromegaly - Respiratory Exam Respiratory Exam: Decreased Breath Sounds, Prolonged Expiratory Phase, Rhonchi - Cardiovascular Exam Cardiovascular Exam: REGULAR RHYTHM, +S1, +S2 - GI/Abdominal Exam GI & Abdominal Exam: Diminished Bowel Sounds, Soft. absent: Tenderness - Rectal Exam Rectal Exam: Deferred - Exam Exam: NORMAL INSPECTION - Extremities Exam Extremities exam: Positive for: pedal pulses present. Negative for: calf tenderness, pedal edema, tenderness - Back Exam Back exam: absent: CVA tenderness (L), CVA tenderness (R) - Neurological Exam Neurological exam: Alert, Altered, CN II-XII Intact, Motor Sensory Deficit Additional comments: weakness bilat lower extrem as well as lue - Psychiatric Exam Psychiatric exam: Depressed - Skin Skin Exam: Dry Past Patient History - Infectious Disease Hx of Infectious Diseases: None - Tetanus Immunizations Tetanus Immunization: Unknown - Past Medical History & Family History Past Medical History?: Yes - Past Social History Smoking Status: Never Smoked - CARDIAC Hx Cardiac Disorders: Yes - PULMONARY Hx Respiratory Disorders: Yes Hx Pulmonary Embolism: Yes - NEUROLOGICAL Hx Neurological Disorder: Yes Hx Dementia: Yes Hx Multiple Sclerosis: Yes Hx Seizures: Yes Other/Comment: paraplegia - HEENT Hx HEENT Problems: Yes (Poor vision, L eye) - RENAL Hx Chronic Kidney Disease: Yes Hx Kidney Stones: Yes Other/Comment: CKD - ENDOCRINE/METABOLIC Hx Endocrine Disorders: No - HEMATOLOGICAL/ONCOLOGICAL Hx AIDS: No Hx Human Immunodeficiency Virus (HIV): No - INTEGUMENTARY Hx Dermatological Problems: No - MUSCULOSKELETAL/RHEUMATOLOGICAL Hx Falls: No - GASTROINTESTINAL Hx Gastrointestinal Disorders: Yes - GENITOURINARY/GYNECOLOGICAL Hx Genitourinary Disorders: Yes Hx Incontinence: Yes Hx Urinary Tract Infection: Yes (Recurrent) Other/Comment: 2wF to drainage bag intact - PSYCHIATRIC Hx Depression: Yes Hx Substance Use: No - SURGICAL HISTORY Hx Surgeries: Yes Other/Comment: cysto with removal of stent 05/19/16- kidney stones - ANESTHESIA Hx Anesthesia: Yes Hx Anesthesia Reactions: No Hx Malignant Hyperthermia: No Meds Allergies/Adverse Reactions: Allergies Allergy/AdvReac Type Severity Reaction Status Date / Time cefazolin Allergy RASH, Verified 06/06/18 14:37 ITCHINESS - Medications Medications: Current Medications Baclofen (Lioresal) 20 mg PO Q8 [facility] Last Admin: 06/12/18 08:21 Dose: 20 mg Fentanyl (Duragesic) 1 patch TD Q3D [facility]; Protocol Home Med (Dimethyl Fumarate [Tecfidera]) 240 mg PO Q12 [facility] Last Admin: 06/12/18 08:20 Dose: 240 mg Aztreonam 1 gm/ Sodium (Chloride) 100 mls @ 100 mls/hr IVPB Q8 [facility] Last Admin: 06/12/18 08:20 Dose: 100 mls/hr Lactobacillus Acidophilus (Bacid Acidophilus) 1 cap PO BID [facility] Last Admin: 06/12/18 08:19 Dose: 1 cap Lamotrigine (Lamictal) 200 mg PO Q12 [facility] Last Admin: 06/12/18 08:20 Dose: 200 mg Levetiracetam (Keppra) 2,000 mg PO Q12 [facility] Last Admin: 06/12/18 08:20 Dose: 2,000 mg Lorazepam (Ativan) 1 mg PO Q8 PRN PRN Reason: Agitation Oxycodone/Acetaminophen (Percocet 5/325 Mg Tab) 1 tab PO Q6 PRN PRN Reason: Pain, moderate (4-7) Stop: 06/14/18 22:32 Last Admin: 06/12/18 09:40 Dose: 1 tab Oxycodone/Acetaminophen (Percocet 5/325 Mg Tab) 2 tab PO Q6 PRN PRN Reason: Pain, severe (8-10) Stop: 06/14/18 22:32 Results - Vital Signs Recent Vital Signs: Last Vital Signs Temp 97.1 F L 06/12/18 08:54 Pulse 77 06/12/18 08:54 Resp 20 06/12/18 08:54 BP 100/68 06/12/18 08:54 Pulse Ox 97 06/12/18 08:54 Assessment & Plan (1) Seizures complicating infection Status: Acute - Assessment and Plan (Free Text) Assessment: cont iv rx for 7 days follow up neuro
--- NOTE | 2018-06-12 14:05 | CP.PCM.HP ---
History of Present Illness - History of Present Illness History of Present Illness: CC: UTI HPI: 52M PMH Multiple Sclerosis with severe neuro deficit paraplegia bed ridden since 2008, Dementia, Depression, Deep Vein Thrombosis, Kidney Stones, Peripheral Edema, Pneumonia, Pulmonary Embolism, Chronic Kidney Disease, Se izures, recurrent UTI and sepsis presented to ED in status epilepticus and was admitted to MS. During admission, patient found to have UTI, as he has recurrent UTI. UCx + VRE Faecalis and Klebsiella. ID on consult appreciated. HD stable, NAD. Present on Admission - Present on Admission Any Indicators Present on Admission: Yes History of DVT/PE: Yes Past Patient History - Infectious Disease Hx of Infectious Diseases: None - Tetanus Immunizations Tetanus Immunization: Unknown - Past Medical History & Family History Past Medical History?: Yes - Past Social History Smoking Status: Never Smoked - CARDIAC Hx Cardiac Disorders: Yes - PULMONARY Hx Respiratory Disorders: Yes Hx Pulmonary Embolism: Yes - NEUROLOGICAL Hx Neurological Disorder: Yes Hx Dementia: Yes Hx Multiple Sclerosis: Yes Hx Seizures: Yes Other/Comment: paraplegia - HEENT Hx HEENT Problems: Yes (Poor vision, L eye) - RENAL Hx Chronic Kidney Disease: Yes Hx Kidney Stones: Yes Other/Comment: CKD - ENDOCRINE/METABOLIC Hx Endocrine Disorders: No - HEMATOLOGICAL/ONCOLOGICAL Hx AIDS: No Hx Human Immunodeficiency Virus (HIV): No - INTEGUMENTARY Hx Dermatological Problems: No - MUSCULOSKELETAL/RHEUMATOLOGICAL Hx Falls: No - GASTROINTESTINAL Hx Gastrointestinal Disorders: Yes - GENITOURINARY/GYNECOLOGICAL Hx Genitourinary Disorders: Yes Hx Incontinence: Yes Hx Urinary Tract Infection: Yes (Recurrent) Other/Comment: 2wF to drainage bag intact - PSYCHIATRIC Hx Depression: Yes Hx Substance Use: No - SURGICAL HISTORY Hx Surgeries: Yes Other/Comment: cysto with removal of stent 05/19/16- kidney stones - ANESTHESIA Hx Anesthesia: Yes Hx Anesthesia Reactions: No Hx Malignant Hyperthermia: No Meds Allergies/Adverse Reactions: Allergies Allergy/AdvReac Type Severity Reaction Status Date / Time cefazolin Allergy RASH, Verified 06/06/18 14:37 ITCHINESS Physical Exam - Constitutional Appears: Non-toxic, No Acute Distress - Head Exam Head Exam: ATRAUMATIC, NORMOCEPHALIC - Eye Exam Eye Exam: EOMI, Normal appearance, PERRL - ENT Exam ENT Exam: Mucous Membranes Moist, Normal Oropharynx - Respiratory Exam Respiratory Exam: Clear to Auscultation Bilateral, NORMAL BREATHING PATTERN - Cardiovascular Exam Cardiovascular Exam: RRR, +S1, +S2 - GI/Abdominal Exam GI & Abdominal Exam: Normal Bowel Sounds, Soft - Extremities Exam Extremities exam: Positive for: normal capillary refill, pedal pulses present - Back Exam Back exam: absent: CVA tenderness (L), CVA tenderness (R) - Neurological Exam Neurological exam: Alert, Oriented x3 - Psychiatric Exam Psychiatric exam: Normal Affect, Normal Mood - Skin Skin Exam: Dry, Warm Results - Vital Signs Recent Vital Signs: Last Vital Signs Temp 97.1 F L 06/12/18 08:54 Pulse 77 06/12/18 08:54 Resp 20 06/12/18 08:54 BP 100/68 06/12/18 08:54 Pulse Ox 97 06/12/18 08:54 Assessment & Plan - Assessment and Plan (Free Text) Plan: 52M PMH Multiple Sclerosis with severe neuro deficit paraplegia bed ridden since 2008, Dementia, Depression, Deep Vein Thrombosis, Kidney Stones, Peripheral Edema, hx Pulmonary Embolism, Chronic Kidney Disease, Seizures, recurrent UTI and sepsis presented to ED in status epilepticus and was admitted to MS. During admission, patient found to have UTI, as he has recurrent UTI. UCx + VRE Faecalis and Klebsiella. ID on consult appreciated. HD stable, NAD. UTI - continue IV RX Aztreonam per ID Dr. Fraire, consult appreciated - awaiting cultures and sensitivities MS Dementia - continue home meds
[2018-06-13] MEDS: Aztreonam 1 GM in Sodium Chloride 0.9% 100 ML IVPB SCH ×3 (00:24→16:40)
[2018-06-13] MEDS: Lactobacillus Acidophilus 500 MU Cap PO SCH ×2 (09:40→16:40)
[2018-06-13] MEDS: Oxycodone/Acetaminophen 5/325 mg Tab PO PRN ×2 (09:46→15:56)
--- NOTE | 2018-06-13 12:59 | CP.PCM.PN ---
Subjective - Date & Time of Evaluation Date of Evaluation: 06/13/18 Time of Evaluation: 11:00 - Subjective Subjective: Patient seen and examined. No complaint. Objective - Vital Signs/Intake and Output Vital Signs (last 24 hours): Temp Pulse Resp BP Pulse Ox 97.0 F L 83 20 104/70 94 L 06/12/18 22:08 06/12/18 22:08 06/12/18 22:08 06/12/18 22:08 06/12/18 22:08 - Medications Medications: Current Medications Baclofen (Lioresal) 20 mg PO Q8 [facility] Last Admin: 06/13/18 09:41 Dose: 20 mg Fentanyl (Duragesic) 1 patch TD Q3D [facility]; Protocol Home Med (Dimethyl Fumarate [Tecfidera]) 240 mg PO Q12 [facility] Last Admin: 06/13/18 09:41 Dose: 240 mg Aztreonam 1 gm/ Sodium (Chloride) 100 mls @ 100 mls/hr IVPB Q8 [facility] Last Admin: 06/13/18 09:40 Dose: 100 mls/hr Lactobacillus Acidophilus (Bacid Acidophilus) 1 cap PO BID [facility] Last Admin: 06/13/18 09:40 Dose: 1 cap Lamotrigine (Lamictal) 200 mg PO Q12 [facility] Last Admin: 06/13/18 09:41 Dose: 200 mg Levetiracetam (Keppra) 2,000 mg PO Q12 [facility] Last Admin: 06/13/18 09:41 Dose: 2,000 mg Lorazepam (Ativan) 1 mg PO Q8 PRN PRN Reason: Agitation Oxycodone/Acetaminophen (Percocet 5/325 Mg Tab) 1 tab PO Q6 PRN PRN Reason: Pain, moderate (4-7) Stop: 06/14/18 22:32 Last Admin: 06/12/18 22:10 Dose: 1 tab Oxycodone/Acetaminophen (Percocet 5/325 Mg Tab) 2 tab PO Q6 PRN PRN Reason: Pain, severe (8-10) Stop: 06/14/18 22:32 Last Admin: 06/13/18 09:46 Dose: 2 tab - Constitutional Appears: No Acute Distress, Chronically Ill - Head Exam Head Exam: ATRAUMATIC - Eye Exam Eye Exam: absent: Scleral icterus - ENT Exam ENT Exam: Mucous Membranes Moist - Neck Exam Neck Exam: absent: Meningismus - Respiratory Exam Respiratory Exam: absent: Rales, Rhonchi, Wheezes, Respiratory Distress - Cardiovascular Exam Cardiovascular Exam: REGULAR RHYTHM, +S1, +S2 - GI/Abdominal Exam GI & Abdominal Exam: Soft. absent: Tenderness - Rectal Exam Rectal Exam: Deferred - Neurological Exam Neurological Exam: Alert, Oriented x3 - Psychiatric Exam Psychiatric exam: Normal Affect - Skin Skin Exam: Dry, Intact Assessment and Plan - Assessment and Plan (Free Text) Assessment: 52 yo male with history of MS with paraplegia since 2008, Dementia, Depression, DVT, PE, Kidney Stones, CKD, Seizures and recurrent UTI was admitted with status epilepticus and was found at the same time with UTI. Urine culture grew + VRE Faecalis and Klebsiella. He was transferred to TCU for continuation of IV antibiotics and therapy 1. UTI continue IV Aztreonam per ID consult (Dr. Fraire) 2. Seizure DO continue Lamictal and Keppra 3. MS continue Tecfidera continue PT 4. Dementia continue home meds
[2018-06-14] MEDS: Aztreonam 1 GM in Sodium Chloride 0.9% 100 ML IVPB SCH ×3 (00:32→17:00)
[2018-06-14] MEDS: Lactobacillus Acidophilus 500 MU Cap PO SCH ×2 (08:11→17:00)
--- NOTE | 2018-06-14 12:21 | CP.PCM.PN ---
Subjective - Date & Time of Evaluation Date of Evaluation: 06/14/18 Time of Evaluation: 08:00 - Subjective Subjective: urine + pseudomonas and VRE may be colonized will repeat cultures Objective - Vital Signs/Intake and Output Vital Signs (last 24 hours): Temp Pulse Resp BP Pulse Ox 97.1 F L 69 20 97/58 L 95 06/14/18 08:20 06/14/18 08:20 06/14/18 08:20 06/14/18 08:20 06/14/18 08:20 - Medications Medications: Current Medications Baclofen (Lioresal) 20 mg PO Q8 [facility] Last Admin: 06/14/18 08:12 Dose: 20 mg Fentanyl (Duragesic) 1 patch TD Q3D [facility]; Protocol Last Admin: 06/14/18 08:20 Dose: 1 patch Home Med (Dimethyl Fumarate [Tecfidera]) 240 mg PO Q12 [facility] Last Admin: 06/14/18 08:11 Dose: 240 mg Aztreonam 1 gm/ Sodium (Chloride) 100 mls @ 100 mls/hr IVPB Q8 [facility] Last Admin: 06/14/18 08:12 Dose: 100 mls/hr Lactobacillus Acidophilus (Bacid Acidophilus) 1 cap PO BID [facility] Last Admin: 06/14/18 08:11 Dose: 1 cap Lamotrigine (Lamictal) 200 mg PO Q12 [facility] Last Admin: 06/14/18 08:12 Dose: 200 mg Levetiracetam (Keppra) 2,000 mg PO Q12 [facility] Last Admin: 06/14/18 08:12 Dose: 2,000 mg Lorazepam (Ativan) 1 mg PO Q8 PRN PRN Reason: Agitation Last Admin: 06/13/18 17:55 Dose: 1 mg Oxycodone/Acetaminophen (Percocet 5/325 Mg Tab) 1 tab PO Q6 PRN PRN Reason: Pain, moderate (4-7) Stop: 06/14/18 22:32 Last Admin: 06/12/18 22:10 Dose: 1 tab Oxycodone/Acetaminophen (Percocet 5/325 Mg Tab) 2 tab PO Q6 PRN PRN Reason: Pain, severe (8-10) Stop: 06/14/18 22:32 Last Admin: 06/13/18 15:56 Dose: 2 tab - Constitutional Appears: Non-toxic, Chronically Ill - Head Exam Head Exam: NORMOCEPHALIC - Eye Exam Eye Exam: absent: Scleral icterus - ENT Exam ENT Exam: Normal External Ear Exam - Neck Exam Neck Exam: absent: Lymphadenopathy - Respiratory Exam Respiratory Exam: Decreased Breath Sounds - Cardiovascular Exam Cardiovascular Exam: REGULAR RHYTHM - GI/Abdominal Exam GI & Abdominal Exam: Distended - Rectal Exam Rectal Exam: Deferred - Exam Exam: NORMAL INSPECTION - Extremities Exam Extremities Exam: absent: Pedal Edema - Back Exam Back Exam: absent: CVA tenderness (L), CVA tenderness (R) - Neurological Exam Neuro motor strength exam: Left Upper Extremity: 3, Right Upper Extremity: 3, Left Lower Extremity: 2/1, Right Lower Extremity: 2/1 Assessment and Plan (1) Seizures complicating infection Status: Acute - Assessment and Plan (Free Text) Assessment: recurrent UTI cont IV antibiotics
[2018-06-14] MEDS ORDERED: Nitrofurantoin 25 MG/5 ML SUSP PO SCH (12:30)
[2018-06-14] MEDS: Oxycodone/Acetaminophen 5/325 mg Tab PO PRN ×2 (14:50→21:05)
[2018-06-15] MEDS: Aztreonam 1 GM in Sodium Chloride 0.9% 100 ML IVPB SCH ×3 (00:32→16:55)
[2018-06-15] MEDS: Oxycodone/Acetaminophen 5/325 mg Tab PO PRN ×2 (05:09→17:00)
[2018-06-15] MEDS: Lactobacillus Acidophilus 500 MU Cap PO SCH ×2 (08:43→16:58)
[2018-06-15] MEDS ORDERED: Aztreonam 1 GM in Sodium Chloride 0.9% 100 ML IVPB ONE (09:00)
[2018-06-15 18:19] LABS: URINE BACTERIA RARE (<OCC); URINE BILIRUBIN NEGATIVE (NEGATIVE); URINE BLOOD MODERATE (NEGATIVE); URINE CLARITY SLIGHTY-CLOUDY (Clear); URINE COLOR YELLOW (YELLOW); URINE GLUCOSE (UA) NEG (Normal); URINE LEUKOCYTE ESTERASE SMALL Leu/uL (Negative); URINE PROTEIN 30 mg/dL (NEGATIVE); URINE UROBILINOGEN 0.2-1.0 mg/dL (0.2-1.0)
[2018-06-16] MEDS: Aztreonam 1 GM in Sodium Chloride 0.9% 100 ML IVPB SCH ×3 (05:07→21:49)
[2018-06-16] MEDS: Lactobacillus Acidophilus 500 MU Cap PO SCH ×2 (09:51→16:05)
[2018-06-16] MEDS: Oxycodone/Acetaminophen 5/325 mg Tab PO PRN ×2 (09:54→16:03)
[2018-06-17] MEDS: Aztreonam 1 GM in Sodium Chloride 0.9% 100 ML IVPB SCH ×3 (05:30→21:08)
[2018-06-17] MEDS: Lactobacillus Acidophilus 500 MU Cap PO SCH ×2 (08:09→16:27)
[2018-06-17] MEDS: Oxycodone/Acetaminophen 5/325 mg Tab PO PRN ×2 (12:21→21:09)
--- NOTE | 2018-06-17 19:29 | CP.PCM.PN ---
Subjective - Date & Time of Evaluation Date of Evaluation: 06/17/18 Time of Evaluation: 13:30 - Subjective Subjective: above noted Patient still anxious at time agitated. Objective - Vital Signs/Intake and Output Vital Signs (last 24 hours): Temp Pulse Resp BP Pulse Ox 97.7 F 77 20 105/61 95 06/17/18 15:55 06/17/18 15:55 06/17/18 15:55 06/17/18 15:55 06/17/18 15:55 Intake and Output: 06/17/18 06/17/18 11:59 23:59 Output Total 500 Balance -500 - Medications Medications: Current Medications Baclofen (Lioresal) 20 mg PO Q8H [facility] Last Admin: 06/17/18 12:21 Dose: 20 mg Home Med (Dimethyl Fumarate [Tecfidera]) 240 mg PO Q12 [facility] Last Admin: 06/17/18 08:09 Dose: 240 mg Aztreonam 1 gm/ Sodium (Chloride) 100 mls @ 100 mls/hr IVPB Q8H [facility]; Protocol Last Admin: 06/17/18 12:22 Dose: 100 mls/hr Lactobacillus Acidophilus (Bacid Acidophilus) 1 cap PO BID [facility] Last Admin: 06/17/18 16:27 Dose: 1 cap Lamotrigine (Lamictal) 200 mg PO Q12 [facility] Last Admin: 06/17/18 08:09 Dose: 200 mg Levetiracetam (Keppra) 2,000 mg PO Q12 [facility] Last Admin: 06/17/18 08:10 Dose: 2,000 mg Lorazepam (Ativan) 1 mg PO Q8 PRN PRN Reason: Agitation Last Admin: 06/17/18 14:17 Dose: 1 mg Nitrofurantoin Macrocrystals (Macrobid) 100 mg PO Q12H [facility]; Protocol Last Admin: 06/17/18 16:27 Dose: 100 mg Oxycodone/Acetaminophen (Percocet 5/325 Mg Tab) 2 tab PO Q6 PRN PRN Reason: Pain, severe (8-10) Stop: 06/18/18 04:50 Last Admin: 06/17/18 12:21 Dose: 2 tab Oxycodone/Acetaminophen (Percocet 5/325 Mg Tab) 1 tab PO Q6 PRN PRN Reason: Pain, moderate (4-7) Stop: 06/18/18 04:50 Last Admin: 06/15/18 17:00 Dose: 1 tab - Constitutional Appears: Agitated, Confused, Chronically Ill - Head Exam Head Exam: ATRAUMATIC, NORMAL INSPECTION, NORMOCEPHALIC - Eye Exam Eye Exam: Normal appearance - Neck Exam Neck Exam: Full ROM - Respiratory Exam Respiratory Exam: Clear to Ausculation Bilateral - Cardiovascular Exam Cardiovascular Exam: REGULAR RHYTHM, +S1, +S2 - GI/Abdominal Exam GI & Abdominal Exam: Soft, Normal Bowel Sounds - Extremities Exam Extremities Exam: Pedal Edema - Neurological Exam Neurological Exam: Altered, Motor Sensory Deficit - Psychiatric Exam Psychiatric exam: Agitated, Anxious - Skin Skin Exam: Normal Color Assessment and Plan (1) Anxiety Status: Acute (2) Delirium due to general medical condition Status: Acute (3) Generalized seizure Status: Acute (4) Multiple sclerosis Status: Acute (5) UTI (urinary tract infection) Status: Acute (6) BPH (benign prostatic hyperplasia) Status: Chronic (7) Chronic pain disorder Status: Chronic
[2018-06-18] MEDS: Aztreonam 1 GM in Sodium Chloride 0.9% 100 ML IVPB SCH ×3 (04:04→21:35)
[2018-06-18] MEDS: Oxycodone/Acetaminophen 5/325 mg Tab PO PRN ×3 (04:19→18:22)
[2018-06-18] MEDS ORDERED: Oxycodone/Acetaminophen 5/325 mg Tab PO PRN (05:40)
[2018-06-18] MEDS: Lactobacillus Acidophilus 500 MU Cap PO SCH ×2 (09:22→17:15)
[2018-06-18] MEDS ORDERED: Alum-Mag Hydrox-Simethicone Susp (30 mL) PO ONE (11:56)
--- NOTE | 2018-06-18 16:22 | CP.PCM.PN ---
Subjective - Date & Time of Evaluation Date of Evaluation: 06/18/18 Time of Evaluation: 16:22 - Subjective Subjective: No new changes Objective - Vital Signs/Intake and Output Vital Signs (last 24 hours): Temp Pulse Resp BP Pulse Ox 97.1 F L 75 20 93/63 L 95 06/18/18 09:38 06/18/18 09:38 06/18/18 09:38 06/18/18 09:38 06/18/18 09:38 - Medications Medications: Current Medications Baclofen (Lioresal) 20 mg PO Q8H [facility] Last Admin: 06/18/18 12:50 Dose: 20 mg Home Med (Dimethyl Fumarate [Tecfidera]) 240 mg PO Q12 [facility] Last Admin: 06/18/18 09:23 Dose: 240 mg Aztreonam 1 gm/ Sodium (Chloride) 100 mls @ 100 mls/hr IVPB Q8H [facility]; Protocol Last Admin: 06/18/18 13:02 Dose: 100 mls/hr Lactobacillus Acidophilus (Bacid Acidophilus) 1 cap PO BID [facility] Last Admin: 06/18/18 09:22 Dose: 1 cap Lamotrigine (Lamictal) 200 mg PO Q12 [facility] Last Admin: 06/18/18 09:23 Dose: 200 mg Levetiracetam (Keppra) 2,000 mg PO Q12 [facility] Last Admin: 06/18/18 09:23 Dose: 2,000 mg Lorazepam (Ativan) 1 mg PO Q8 PRN PRN Reason: Agitation Last Admin: 06/17/18 21:22 Dose: 1 mg Nitrofurantoin Macrocrystals (Macrobid) 100 mg PO Q12H [facility]; Protocol Last Admin: 06/18/18 04:05 Dose: 100 mg Oxycodone/Acetaminophen (Percocet 5/325 Mg Tab) 2 tab PO Q6 PRN PRN Reason: Pain, severe (8-10) Stop: 06/21/18 05:41 Last Admin: 06/18/18 10:25 Dose: 2 tab Oxycodone/Acetaminophen (Percocet 5/325 Mg Tab) 1 tab PO Q6 PRN PRN Reason: Pain, moderate (4-7) Stop: 06/21/18 05:41 - Constitutional Appears: Confused, Chronically Ill - Head Exam Head Exam: ATRAUMATIC, NORMAL INSPECTION, NORMOCEPHALIC - Eye Exam Eye Exam: Normal appearance - Neck Exam Neck Exam: Full ROM - Respiratory Exam Respiratory Exam: Decreased Breath Sounds - Cardiovascular Exam Cardiovascular Exam: REGULAR RHYTHM, +S1, +S2 - GI/Abdominal Exam GI & Abdominal Exam: Soft, Normal Bowel Sounds - Extremities Exam Extremities Exam: Pedal Edema - Neurological Exam Neurological Exam: Altered, Motor Sensory Deficit - Psychiatric Exam Psychiatric exam: Anxious Assessment and Plan (1) Anxiety Status: Acute (2) Delirium due to general medical condition Status: Acute (3) Generalized seizure Status: Acute (4) Multiple sclerosis Status: Acute (5) UTI (urinary tract infection) Status: Acute (6) BPH (benign prostatic hyperplasia) Status: Chronic (7) Chronic pain disorder Status: Chronic - Assessment and Plan (Free Text) Plan: Continue present rx.
[2018-06-19] MEDS: Aztreonam 1 GM in Sodium Chloride 0.9% 100 ML IVPB SCH ×3 (04:42→21:34)
[2018-06-19] MEDS: Lactobacillus Acidophilus 500 MU Cap PO SCH ×2 (08:13→16:25)
[2018-06-19] MEDS: Oxycodone/Acetaminophen 5/325 mg Tab PO PRN ×2 (13:25→18:23)
--- NOTE | 2018-06-19 15:59 | CP.PCM.PN ---
Subjective - Date & Time of Evaluation Date of Evaluation: 06/19/18 Time of Evaluation: 13:30 - Subjective Subjective: comfortable no urine retention Objective - Vital Signs/Intake and Output Vital Signs (last 24 hours): Temp Pulse Resp BP Pulse Ox 97.0 F L 60 20 120/69 95 06/19/18 08:37 06/19/18 08:37 06/19/18 08:37 06/19/18 08:37 06/19/18 08:37 - Medications Medications: Current Medications Baclofen (Lioresal) 20 mg PO Q8H [facility] Last Admin: 06/19/18 13:24 Dose: 20 mg Fentanyl (Duragesic) 1 patch TD Q3D [facility]; Protocol Home Med (Dimethyl Fumarate [Tecfidera]) 240 mg PO Q12 [facility] Last Admin: 06/19/18 08:13 Dose: 240 mg Aztreonam 1 gm/ Sodium (Chloride) 100 mls @ 100 mls/hr IVPB Q8H [facility]; Protocol Last Admin: 06/19/18 13:23 Dose: 100 mls/hr Lactobacillus Acidophilus (Bacid Acidophilus) 1 cap PO BID [facility] Last Admin: 06/19/18 08:13 Dose: 1 cap Lamotrigine (Lamictal) 200 mg PO Q12 [facility] Last Admin: 06/19/18 08:13 Dose: 200 mg Levetiracetam (Keppra) 2,000 mg PO Q12 [facility] Last Admin: 06/19/18 08:13 Dose: 2,000 mg Lorazepam (Ativan) 1 mg PO Q8 PRN PRN Reason: Agitation Last Admin: 06/18/18 21:50 Dose: 1 mg Nitrofurantoin Macrocrystals (Macrobid) 100 mg PO Q12H [facility]; Protocol Last Admin: 06/19/18 04:43 Dose: 100 mg Oxycodone/Acetaminophen (Percocet 5/325 Mg Tab) 2 tab PO Q6 PRN PRN Reason: Pain, severe (8-10) Stop: 06/21/18 05:41 Last Admin: 06/19/18 13:25 Dose: 2 tab Oxycodone/Acetaminophen (Percocet 5/325 Mg Tab) 1 tab PO Q6 PRN PRN Reason: Pain, moderate (4-7) Stop: 06/21/18 05:41 - Constitutional Appears: Confused, Chronically Ill - Head Exam Head Exam: ATRAUMATIC, NORMAL INSPECTION, NORMOCEPHALIC - Eye Exam Eye Exam: Normal appearance - ENT Exam ENT Exam: Mucous Membranes Moist - Neck Exam Neck Exam: Full ROM - Respiratory Exam Respiratory Exam: Clear to Ausculation Bilateral - Cardiovascular Exam Cardiovascular Exam: REGULAR RHYTHM, +S1, +S2 - GI/Abdominal Exam GI & Abdominal Exam: Normal Bowel Sounds - Extremities Exam Extremities Exam: Full ROM - Neurological Exam Neurological Exam: Alert, Altered, Motor Sensory Deficit Assessment and Plan (1) Anxiety Status: Acute (2) Delirium due to general medical condition Status: Acute (3) Generalized seizure Status: Acute (4) Multiple sclerosis Status: Acute (5) UTI (urinary tract infection) Status: Acute (6) BPH (benign prostatic hyperplasia) Status: Chronic (7) Chronic pain disorder Status: Chronic
[2018-06-20] MEDS: Aztreonam 1 GM in Sodium Chloride 0.9% 100 ML IVPB SCH ×3 (04:35→21:34)
[2018-06-20] MEDS: Lactobacillus Acidophilus 500 MU Cap PO SCH ×2 (08:30→16:37)
--- NOTE | 2018-06-20 12:29 | CP.PCM.PN ---
Subjective - Date & Time of Evaluation Date of Evaluation: 06/20/18 Time of Evaluation: 12:54 - Subjective Subjective: Patient doing well will dc in am after complete the antibx rx. Objective - Vital Signs/Intake and Output Vital Signs (last 24 hours): Temp Pulse Resp BP Pulse Ox 97.0 F L 62 20 106/62 99 06/20/18 08:34 06/20/18 08:34 06/20/18 08:34 06/20/18 08:34 06/20/18 08:34 - Medications Medications: Current Medications Baclofen (Lioresal) 20 mg PO Q8H [facility] Last Admin: 06/20/18 12:18 Dose: 20 mg Fentanyl (Duragesic) 1 patch TD Q3D [facility]; Protocol Last Admin: 06/20/18 08:32 Dose: 1 patch Home Med (Dimethyl Fumarate [Tecfidera]) 240 mg PO Q12 [facility] Last Admin: 06/20/18 08:30 Dose: 240 mg Aztreonam 1 gm/ Sodium (Chloride) 100 mls @ 100 mls/hr IVPB Q8H [facility]; Protocol Last Admin: 06/20/18 12:19 Dose: 100 mls/hr Lactobacillus Acidophilus (Bacid Acidophilus) 1 cap PO BID [facility] Last Admin: 06/20/18 08:30 Dose: 1 cap Lamotrigine (Lamictal) 200 mg PO Q12 [facility] Last Admin: 06/20/18 08:30 Dose: 200 mg Levetiracetam (Keppra) 2,000 mg PO Q12 [facility] Last Admin: 06/20/18 08:30 Dose: 2,000 mg Lorazepam (Ativan) 1 mg PO Q8 PRN PRN Reason: Agitation Last Admin: 06/20/18 00:07 Dose: 1 mg Oxycodone/Acetaminophen (Percocet 5/325 Mg Tab) 2 tab PO Q6 PRN PRN Reason: Pain, severe (8-10) Stop: 06/21/18 05:41 Last Admin: 06/19/18 18:23 Dose: 2 tab Oxycodone/Acetaminophen (Percocet 5/325 Mg Tab) 1 tab PO Q6 PRN PRN Reason: Pain, moderate (4-7) Stop: 06/21/18 05:41 - Constitutional Appears: Confused, Chronically Ill - Head Exam Head Exam: ATRAUMATIC, NORMAL INSPECTION, NORMOCEPHALIC - Eye Exam Eye Exam: Normal appearance - Neck Exam Neck Exam: Full ROM - Respiratory Exam Respiratory Exam: Clear to Ausculation Bilateral - Cardiovascular Exam Cardiovascular Exam: REGULAR RHYTHM, +S1, +S2 - GI/Abdominal Exam GI & Abdominal Exam: Soft, Normal Bowel Sounds - Extremities Exam Extremities Exam: Pedal Edema - Neurological Exam Neurological Exam: Altered, Awake, Motor Sensory Deficit - Psychiatric Exam Psychiatric exam: Anxious - Skin Skin Exam: Normal Color Assessment and Plan (1) Anxiety Status: Acute (2) Delirium due to general medical condition Status: Acute (3) Generalized seizure Status: Acute (4) Multiple sclerosis Status: Acute (5) UTI (urinary tract infection) Status: Acute (6) BPH (benign prostatic hyperplasia) Status: Chronic (7) Chronic pain disorder Status: Chronic - Assessment and Plan (Free Text) Plan: As above
[2018-06-20] MEDS: Oxycodone/Acetaminophen 5/325 mg Tab PO PRN (13:46)
[2018-06-21] MEDS: Aztreonam 1 GM in Sodium Chloride 0.9% 100 ML IVPB SCH ×2 (05:56→13:17)
[2018-06-21] MEDS: Lactobacillus Acidophilus 500 MU Cap PO SCH (08:15)
[2018-06-21 08:38] VITALS: BP 101/63; PULSE 67; TEMP 97.8; O2SAT 98
--- NOTE | 2018-06-21 09:59 | CP.PCM.DIS ---
Provider - Provider Date of Admission: 06/11/18 21:15 Attending physician: Leo Morris MD Primary care physician: Leo Morris MD Consults: 06/11/18 22:35 Infectious Disease Consult Routine Comment: Consulting Provider: Maurilio Fraire Consulting Physician: Maurilio Fraire Reason for Consult: pls follow care while in TCU 06/11/18 22:46 Case Management Referral Routine Comment: Physician Instructions: Reason For Exam: Reason for Referral: Discharge Planning Time Spent in preparation of Discharge (in minutes): 30 Diagnosis - Discharge Diagnosis (1) Anxiety Status: Acute Priority: Medium (2) Delirium due to general medical condition Status: Acute (3) Generalized seizure Status: Acute (4) Multiple sclerosis Status: Acute (5) UTI (urinary tract infection) Status: Acute (6) BPH (benign prostatic hyperplasia) Status: Chronic (7) Chronic pain disorder Status: Chronic Hospital Course - Lab Results Lab Results: Micro Results 06/17/18 15:53 Urine,Catheterized Urine Culture - Final No Growth (<1,000 CFU/ML) Most Recent Lab Values Urine Color Yellow (YELLOW) 06/15/18 17:53 Urine Clarity Slighty-cloudy (Clear) 06/15/18 17:53 Urine pH 6.0 (5.0-8.0) 06/15/18 17:53 Ur Specific [place] 1.013 (1.003-1.030) 06/15/18 17:53 Urine Protein 30 mg/dL (NEGATIVE) 06/15/18 17:53 Urine Glucose (UA) Neg mg/dL (Normal) 06/15/18 17:53 Urine Ketones Negative mg/dL (NEGATIVE) 06/15/18 17:53 Urine Blood Moderate (NEGATIVE) 06/15/18 17:53 Urine Nitrate Negative (NEGATIVE) 06/15/18 17:53 Urine Bilirubin Negative (NEGATIVE) 06/15/18 17:53 Urine Urobilinogen 0.2-1.0 mg/dL (0.2-1.0) 06/15/18 17:53 Ur Leukocyte Esterase [place]/uL (Negative) 06/15/18 17:53 Urine RBC (Auto) 18 /hpf (0-3) H 06/15/18 17:53 Urine Microscopic WBC 9 /hpf (0-5) H 06/15/18 17:53 Urine Bacteria Rare (<OCC) 06/15/18 17:53 - Hospital Course Hospital Course: 52M PMH 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 During admission, patient found to have UTI, as he has recurrent UTI. UCx + VRE Faecalis and Klebsiella. ID on consult appreciated. HD stable, NAD. Well responded to rx. DC home f/u with neuro inez Discharge Exam - Head Exam Head Exam: ATRAUMATIC, NORMAL INSPECTION, NORMOCEPHALIC - Eye Exam Eye Exam: Normal appearance - Respiratory Exam Respiratory Exam: Clear to PA & Lateral - Cardiovascular Exam Cardiovascular Exam: REGULAR RHYTHM, +S1, +S2 - GI/Abdominal Exam GI & Abdominal Exam: Normal Bowel Sounds - Neurological Exam Neurological exam: Alert, CN II-XII Intact, Motor Sensory Deficit - Psychiatric Exam Psychiatric exam: Normal Affect - Skin Skin Exam: Normal Color Discharge Plan - Follow Up Plan Condition: GOOD Disposition: HOME/ ROUTINE Referrals: Leo Morris MD [Primary Care Provider] -
== END 2018-06-21 13:45 | disposition home health service (06) | DRG 690 ==
LOC: H.TCU 21:15
PROVIDERS: ADMIT Internal Medicine; ATTEND Internal Medicine
PROC: 3E04329 Introduction of Other Anti-infective into Central Vein, Percutaneous Approach (ICD-10-PCS; principal; 2018-06-11)
PROC: F07M6ZZ Therapeutic Exercise Treatment of Musculoskeletal System - Whole Body (ICD-10-PCS; 2018-06-11)
DX: N39.0 Urinary tract infection, site not specified (principal); F05 Delirium due to known physiological condition; G82.20 Paraplegia, unspecified; Z86.711 Personal history of pulmonary embolism; Z87.01 Personal history of pneumonia (recurrent); M06.9 Rheumatoid arthritis, unspecified; N18.9 Chronic kidney disease, unspecified; N40.0 Benign prostatic hyperplasia without lower urinary tract symptoms; Z87.440 Personal history of urinary (tract) infections; Z87.442 Personal history of urinary calculi; D64.9 Anemia, unspecified; M19.90 Unspecified osteoarthritis, unspecified site; R32 Unspecified urinary incontinence; F03.90 Unspecified dementia, unspecified severity, without behavioral disturbance, psychotic disturbance, mood disturbance, and anxiety; F32.9 Major depressive disorder, single episode, unspecified; F41.9 Anxiety disorder, unspecified; G35 Multiple sclerosis; G40.901 Epilepsy, unspecified, not intractable, with status epilepticus; G89.29 Other chronic pain; H54.7 Unspecified visual loss; Z74.01 Bed confinement status

== ENCOUNTER 2018-10-23 19:11 | Inpatient (IN) | payer MEDICARE, OTHER ==
[2018-10-23] MEDS ORDERED: Dextrose 50% SYRINGE Inj (50 ml) IVP ONE (19:28)
[2018-10-23] MEDS ORDERED: Sodium Chloride 0.9% 1,000 ML IV STA (19:39)
[2018-10-23 19:49] LABS: BASO # 0.1 K/uL (0.0-0.2); EOS # 0.4 K/uL (0.0-0.7); EOS % 4.8 % (0.0-4.0); HEMOGLOBIN 15.3 g/dL (12.0-18.0); LYMPH # 3.4 K/uL (1.0-4.3); LYMPH % 46.2 % (20.0-40.0); MEAN CELL VOLUME 90.9 fl (80.0-94.0); MEAN CORPUSCULAR HEMOGLOBIN 30.5 pg (27.0-31.0); MEAN CORPUSCULAR HGB CONC 33.5 g/dL (33.0-37.0); MEAN PLATELET VOLUME 7.5 fl (7.2-11.7); MONO # 1.1 K/uL (0.0-0.8); MONO % 14.6 % (0.0-10.0); NEUT # 2.5 K/uL (1.8-7.0); NEUT % 33.4 % (50.0-75.0); NRBC % 0.3 % (0.0-0.0); RBC 5.01 Mil/uL (4.40-5.90); WHITE BLOOD COUNT 7.4 K/uL (4.8-10.8)
[2018-10-23 19:53] LABS: URINE BILIRUBIN NEGATIVE (NEGATIVE); URINE BLOOD NEGATIVE (NEGATIVE); URINE CLARITY SLIGHTY-CLOUDY (Clear); URINE COLOR YELLOW (YELLOW); URINE GLUCOSE (UA) NEG (NEGATIVE); URINE LEUKOCYTE ESTERASE TRACE Leu/uL (Negative); URINE PROTEIN NEGATIVE (NEGATIVE); URINE UROBILINOGEN 0.2-1.0 mg/dL (0.2-1.0)
--- NOTE | 2018-10-23 20:06 | ED PDOC ---
HPI: Seizure Time Seen by Provider: 10/23/18 19:23 Chief Complaint (Nursing): Seizure Chief Complaint (Provider): Seizure History Per: Family (), Other (ALS) History/Exam Limitations: clinical condition Recent Seizure Activity Began: Mins Ago: (45) Length Of Seizures (Duration): Minutes (45) Additional Complaint(s): 53 year old male presents to the ED via ALS for an ongoing seizure for the past 45 minutes. ALS was unable to secure IV access in the field but gave 10mg IM Versed, however patient still seizing upon arrival. Accucheck was 99 in field. is providing additional history and states that patient is compliant with his medications, but has had uncontrollable seizures in the past associated with UTI diagnosis. She states patient has advanced MS and is a paraplegic, but prior to to seizure activity, he was in his usual state of health. Patient cannot provide any information secondary to clinical condition. , ALS, and previous records were used to obtain HPI, and PM/SHX. PMD: Leo Morris Past Medical History Reviewed: Historical Data, Nursing Documentation, Vital Signs Vital Signs: Last Vital Signs Temp 100.2 F H 10/23/18 19:27 Pulse 114 H 10/23/18 19:46 Resp 18 10/23/18 19:46 BP 104/71 10/23/18 19:46 Pulse Ox 98 10/23/18 19:46 - Medical History PMH: Anemia, Anxiety, Arthritis (BACK), COPD, Dementia, Depression, Deep Vein Thrombosis, HTN, Hypercholesterolemia, Kidney Stones, Multiple Sclerosis, Peripheral Edema (B/L LE no longer swollen), Pneumonia, Pulmonary Embolism, Chronic Kidney Disease, Rheumatoid Arthritis, Seizures Denies: HIV - Surgical History Other surgeries: cysto with removal of stent 05/19/16- kidney stones - Family History Family History: States: Unknown Family Hx - Social History Current smoker - smoking cessation education provided: No Alcohol: None Drugs: Denies - Immunization History Hx Tetanus Toxoid Vaccination: No Hx Influenza Vaccination: Yes Hx Pneumococcal Vaccination: Yes - Home Medications Home Medications: Ambulatory Orders Medication Instructions Recorded Baclofen [Lioresal] 20 mg PO Q8 06/06/18 Dimethyl Fumarate [Tecfidera] 240 mg PO Q12 06/06/18 LORazepam [Ativan] 1 mg PO Q8 PRN tab 06/11/18 lamoTRIgine [Lamictal] 200 mg PO Q12 tab 06/11/18 levETIRAcetam [Keppra] 2,000 mg PO Q12 tab 06/11/18 oxyCODONE/Acetaminophen [Percocet 1 tab PO Q6 PRN #30 tab 06/11/18 5/325 mg Tab] fentaNYL 50 mcg/hr [Duragesic 1 patch TD Q3D #30 patch 06/21/18 Patch 50 mcg/hr] - Allergies Allergies/Adverse Reactions: Allergies Allergy/AdvReac Type Severity Reaction Status Date / Time cefazolin Allergy RASH, Verified 06/06/18 14:37 ITCHINESS Review of Systems Review Of Systems: ROS cannot be obtained secondary to pt's inabilty to answer questions. Physical Exam - Reviewed Nursing Documentation Reviewed: Yes Vital Signs Reviewed: Yes - Physical Exam Appears: Positive for: In Acute Distress (actively seizing) Head Exam: Positive for: ATRAUMATIC, NORMOCEPHALIC Eye Exam: Positive for: PERRL ENT: Positive for: Other (foaming from mouth) Cardiovascular/Chest: Positive for: Tachycardia (with regular rhythm) Respiratory: Positive for: Normal Breath Sounds. Negative for: Respiratory Distress Gastrointestinal/Abdominal: Positive for: Soft (and obese). Negative for: Tenderness Extremity: Positive for: Other (heel guards and dressings noted to bilateral LE for ulcer prevention) Neurological/Psych: Positive for: Other (actively seizing - tonic clonic seizure activity appreciated) - Laboratory Results Result Diagrams: 10/23/18 19:37 10/23/18 19:37 - ECG O2 Sat by Pulse Oximetry: 98 (RA) Pulse Ox Interpretation: Normal - Critical Care Total Time (In Min): 60 Documented Critical Care: Time excludes all time spent performint seperately billable procedures Medical Decision Making Medical Decision Making: Time: 1924 Initial Impression: seizure activity in setting of known seizure history and MS Initial Plan: --CT head without contrast --EKG --CMP --Lact acid --Trop I --Valproic acid chemistry --CBC with differential --Lamotrigine lab --Keppra level lab --Accucheck --Ativan 2mg IM --Dextrose 50ml IVP --Normal saline IV --Blood culture --Urine culture --Influenza A B --Urinlaysis 2032 CT Head FINDINGS: BRAIN Severe chronic periventricular and subcortical microvascular disease is seen. VENTRICLES: There is generalized parenchymal atrophy noted as demonstrated by symmetrical dilatation of ventricles and sulci. ORBITS: The orbits are unremarkable. SINUSES AND MASTOIDS: The paranasal sinuses and mastoid air cells are clear. BONES: No fracture. SOFT TISSUES: Unremarkable. MISCELLANEOUS: No acute intracranial pathology. IMPRESSION: 1. There is generalized parenchymal atrophy noted as demonstrated by symmetrical dilatation of ventricles and sulci. 2. Severe chronic periventricular and subcortical microvascular disease is seen. 3. No acute intracranial pathology. 2134 CXR shows NAD. Labs show no clinically significant abnormalities. Case discussed with Dr. Morris and patient is to be admitted for breakthrough seizures and hypoglycemia. Scribe Attestation: Documented by Arpita Diallo, acting as a scribe for Jorge L Marion MD. Provider Scribe Attestation: All medical record entries made by the Scribe were at my direction and personally dictated by me. I have reviewed the chart and agree that the record accurately reflects my personal performance of the history, physical exam, medical decision making, and the department course for this patient. I have also personally directed, reviewed, and agree with the discharge instructions and disposition. Disposition - Clinical Impression Clinical Impression: Status epilepticus - Patient ED Disposition Is Patient to be Admitted: Yes Counseled Patient/Family Regarding: Studies Performed, Diagnosis, Need For Followup - Disposition Disposition: Routine/Home Disposition Time: 20:00 Condition: GUARDED
[2018-10-23] MEDS ORDERED: Aztreonam 2 GM in Sodium Chloride 0.9% 100 ML IVPB STA (20:18)
[2018-10-23 20:23] LABS: SQUAMOUS EPITHIAL 1 /hpf (0-5)
[2018-10-23 20:28] LABS: ALB/GLOB RATIO 1.4 (1.0-2.1); ALBUMIN 4.6 g/dL (3.5-5.0); ALT/SGPT 34 U/L (21-72); AST/SGOT 37 U/L (17-59); BLOOD UREA NITROGEN 10 mg/dl (9-20); CALCIUM 9.6 mg/dL (8.4-10.2); GFR NON-AFRICAN AMERICAN > 60
[2018-10-23] MEDS: Dextrose 5%/0.45% NS 1,000 ML IV SCH (21:31)
[2018-10-23 21:50] LABS: PROTHROMBIN TIME 10.9 Seconds (9.8-13.1)
[2018-10-23 21:53] LABS: PARTIAL THROMBOPLASTIN TIME 36.2 Seconds (25.6-37.1)
[2018-10-24 01:22] VITALS: BMI 33.4
[2018-10-24] MEDS ORDERED: Piperacillin/Tazobact 3.375 GM in Sodium Chloride 0.9% 100 ML IVPB SCH (01:31)
[2018-10-24] MEDS: Enoxaparin 40 mg Syringe SC SCH ×2 (01:57→21:23)
[2018-10-24] MEDS: Dextrose 5%/0.45% NS 1,000 ML IV SCH ×3 (06:36→22:10)
--- NOTE | 2018-10-24 08:11 | CARD ---
APPROVED REPORT Date of service: 10/23/2018 EKG Measurement Heart [id number] <Conclusion> Sinus tachycardia Left anterior fascicular block Abnormal ECG
--- NOTE | 2018-10-24 08:51 | CT ---
Date of service: 10/23/2018 PROCEDURE: CT HEAD WITHOUT CONTRAST. HISTORY: seizure COMPARISON: 05/03/2018 TECHNIQUE: Axial computed tomography images were obtained through the head/brain without intravenous contrast. Radiation dose: Total exam DLP = 985.25 mGy-cm. This CT exam was performed using one or more of the following dose reduction techniques: Automated exposure control, adjustment of the mA and/or kV according to patient size, and/or use of iterative reconstruction technique. FINDINGS: HEMORRHAGE: No intracranial hemorrhage. BRAIN: No mass effect or edema. Moderate diffuse atrophy greater than expected for patient age. Moderate periventricular and deep/subcortical white matter lucency consistent with microvascular white matter ischemic change. No evidence of acute infarct. VENTRICLES: There is ventricular dilatation proportionate to the degree of surrounding parenchymal atrophy. CALVARIUM: Unremarkable. PARANASAL SINUSES: Right maxillary retention cyst or polyp only partially included in this examination MASTOID AIR CELLS: Unremarkable as visualized. No inflammatory changes. OTHER FINDINGS: None. IMPRESSION: Atrophy and white matter ischemic change greater than expected for patient age. No intracranial mass, hemorrhage or evidence of acute infarct.
--- NOTE | 2018-10-24 10:44 | RAD ---
Date of service: 10/23/2018 HISTORY: admit COMPARISON: 06/06/2018 FINDINGS: LUNGS: There are low lung volumes. There is mild pulmonary venous congestion.. PLEURA: No pleural effusions or pneumothorax. CARDIOVASCULAR: Mild cardiomegaly. No aortic atherosclerotic calcifications present. OSSEOUS STRUCTURES: Within normal limits for the patient's age. VISUALIZED UPPER ABDOMEN: Normal. OTHER FINDINGS: None. IMPRESSION: No active pulmonary disease.
[2018-10-24 12:38] LABS: BASO # 0.1 K/uL (0.0-0.2); BASO % 0.6 % (0.0-2.0); BLOOD UREA NITROGEN 6 mg/dl (9-20); EOS # 0.3 K/uL (0.0-0.7); GFR NON-AFRICAN AMERICAN > 60; LYMPH # 2.4 K/uL (1.0-4.3); LYMPH % 23.9 % (20.0-40.0); MEAN CELL VOLUME 91.6 fl (80.0-94.0); MEAN CORPUSCULAR HEMOGLOBIN 30.1 pg (27.0-31.0); MEAN CORPUSCULAR HGB CONC 32.9 g/dL (33.0-37.0); MEAN PLATELET VOLUME 7.2 fl (7.2-11.7); MONO % 9.8 % (0.0-10.0); NEUT # 6.4 K/uL (1.8-7.0); NEUT % 62.7 % (50.0-75.0); NRBC % 0.1 % (0.0-0.0); RBC 4.64 Mil/uL (4.40-5.90); RED CELL DISTRIBUTION WIDTH 14.1 % (11.5-14.5); WHITE BLOOD COUNT 10.1 K/uL (4.8-10.8)
--- NOTE | 2018-10-24 13:28 | CP.PCM.CON ---
History of Present Illness - History of Present Illness History of Present Illness: Neurology Consultation Note: Consult requested by Dr. Morris Mr. Moody is a 53-year-old man, who is well known to me from previous a dmission, with a past medical history of advanced MS and epilepsy. He has breakthrough seizures often despite being on Keppra and Lamictal. He was witnessed having a 45 minute seizure by his , and was brought in to the ED. He was given 10 mg of IM Versed. Currently, the patient is in the ICU and at his baseline. He does exhibit some aggressive and agitated behavior. Review of Systems - Review of Systems Systems not reviewed;Unavailable: Altered Mental Status Past Patient History - Infectious Disease Hx of Infectious Diseases: None - Tetanus Immunizations Tetanus Immunization: Unknown - Past Medical History & Family History Past Medical History?: Yes - Past Social History Alcohol: None Drugs: Denies - CARDIAC Hx Hypercholesterolemia: Yes Hx Hypertension: Yes Hx Peripheral Edema: Yes (B/L LE no longer swollen) - PULMONARY Hx Chronic Obstructive Pulmonary Disease (COPD): Yes Hx Pneumonia: Yes Hx Pulmonary Embolism: Yes - NEUROLOGICAL Hx Dementia: Yes Hx Multiple Sclerosis: Yes Hx Seizures: Yes - HEENT Hx HEENT Problems: Yes (Poor vision, L eye) - RENAL Hx Chronic Kidney Disease: Yes Hx Kidney Stones: Yes - ENDOCRINE/METABOLIC Hx Endocrine Disorders: No - HEMATOLOGICAL/ONCOLOGICAL Hx Anemia: Yes Hx Human Immunodeficiency Virus (HIV): No - INTEGUMENTARY Hx Dermatological Problems: No - MUSCULOSKELETAL/RHEUMATOLOGICAL Hx Arthritis: Yes (BACK) Hx Rheumatoid Arthritis: Yes - GASTROINTESTINAL Hx Gastrointestinal Disorders: Yes - GENITOURINARY/GYNECOLOGICAL Hx Genitourinary Disorders: Yes Hx Incontinence: Yes Hx Urinary Tract Infection: Yes (Recurrent) Other/Comment: 2wF to drainage bag intact - PSYCHIATRIC Hx Anxiety: Yes Hx Depression: Yes - SURGICAL HISTORY Hx Surgeries: Yes Other/Comment: cysto with removal of stent 05/19/16- kidney stones - ANESTHESIA Hx Anesthesia: Yes Hx Anesthesia Reactions: No Hx Malignant Hyperthermia: No Meds Allergies/Adverse Reactions: Allergies Allergy/AdvReac Type Severity Reaction Status Date / Time cefazolin Allergy RASH, Verified 06/06/18 14:37 ITCHINESS - Medications Medications: Current Medications Baclofen (Lioresal) 20 mg PO Q8 [facility] Last Admin: 10/24/18 10:20 Dose: 20 mg Enoxaparin Sodium (Lovenox) 40 mg SC HS [facility]; Protocol Last Admin: 10/24/18 01:57 Dose: 40 mg Fentanyl (Duragesic) 1 patch TD Q3D [facility]; Protocol Last Admin: 10/24/18 02:32 Dose: 1 patch Home Med (Dimethyl Fumarate [Tecfidera]) 240 mg PO Q12 [facility] Last Admin: 10/24/18 10:18 Dose: 240 mg Dextrose/Sodium Chloride (Dextrose 5%/0.45% Ns 1000 Ml) 1,000 mls @ 125 mls/hr IV .Q8H [facility] Last Admin: 10/24/18 06:36 Dose: 125 mls/hr Lamotrigine (Lamictal) 200 mg PO Q12 [facility] Last Admin: 10/24/18 10:20 Dose: 200 mg Levetiracetam (Keppra) 2,000 mg PO Q12 [facility] Last Admin: 10/24/18 10:19 Dose: 2,000 mg Lorazepam (Ativan) 1 mg IVP Q6 PRN PRN Reason: AGITATION AND SEIZURE Last Admin: 10/24/18 06:36 Dose: 1 mg Lorazepam (Ativan) 1 mg PO Q8 PRN PRN Reason: Agitation Oxycodone/Acetaminophen (Percocet 5/325 Mg Tab) 1 tab PO Q6 PRN PRN Reason: Pain, moderate (4-7) Stop: 10/26/18 23:45 Physical Exam - Constitutional Appears: Well - Head Exam Head Exam: ATRAUMATIC, NORMAL INSPECTION, NORMOCEPHALIC - Eye Exam Eye Exam: EOMI, Normal appearance, PERRL Pupil Exam: NORMAL ACCOMODATION, PERRL - ENT Exam ENT Exam: Mucous Membranes Moist, Normal Exam - Neck Exam Neck exam: Positive for: Normal Inspection - Respiratory Exam Respiratory Exam: Clear to Auscultation Bilateral, NORMAL BREATHING PATTERN - Cardiovascular Exam Cardiovascular Exam: REGULAR RHYTHM, +S1, +S2 - GI/Abdominal Exam GI & Abdominal Exam: Normal Bowel Sounds, Soft. absent: Tenderness - Extremities Exam Extremities exam: Positive for: normal inspection - Back Exam Back exam: NORMAL INSPECTION - Neurological Exam Neurological exam: Alert, Altered, CN II-XII Intact, Reflexes Normal Additional comments: Bedbound, contracted, with generalized weakness. Upper extremities 3-4/5 strength bilaterally, lower extremities 2-3/5 strength bilaterally. Reflexes are brisk throughout. - Psychiatric Exam Psychiatric exam: Normal Affect, Normal Mood - Skin Skin Exam: Dry, Intact, Normal Color, Warm Results - Vital Signs Recent Vital Signs: Last Vital Signs Temp 98.9 F 10/24/18 12:00 Pulse 83 10/24/18 12:00 Resp 14 10/24/18 12:00 BP 99/62 L 10/24/18 12:00 Pulse Ox 95 10/24/18 12:00 - Labs Result Diagrams: 10/24/18 12:15 10/24/18 12:15 Labs: Laboratory Results - last 24 hr 10/23/18 10/23/18 10/23/18 19:26 19:37 19:37 WBC 7.4 RBC 5.01 Hgb 15.3 Hct 45.5 MCV 90.9 MCH 30.5 MCHC 33.5 RDW 14.0 Plt Count 293 MPV 7.5 Neut % (Auto) 33.4 L Lymph % (Auto) 46.2 H [place] % (Auto) 14.6 H Eos % (Auto) 4.8 H Baso % (Auto) 1.0 Neut # (Auto) 2.5 Lymph # (Auto) 3.4 [place] # (Auto) 1.1 H Eos # (Auto) 0.4 Baso # (Auto) 0.1 PT INR APTT Sodium 140 Potassium 4.4 Chloride 99 Carbon Dioxide 30 Anion Gap 15 BUN 10 Creatinine 0.5 L Est GFR ( Amer) > 60 Est GFR (Non-Af Amer) > 60 POC Glucose (mg/dL) 67 Random Glucose 71 L Lactic Acid Calcium 9.6 Total Bilirubin 0.3 AST 37 ALT 34 Alkaline Phosphatase 91 Troponin I < 0.0120 Total Protein 8.0 Albumin 4.6 Globulin 3.4 Albumin/Globulin Ratio 1.4 Urine Color Urine Clarity Urine pH Ur Specific [place] Urine Protein Urine Glucose (UA) Urine Ketones Urine Blood Urine Nitrate Urine Bilirubin Urine Urobilinogen Ur Leukocyte Esterase Urine RBC (Auto) Urine Microscopic WBC Ur Squamous Epith Cells Valproic Acid Influenza Typ A,B (EIA) 10/23/18 10/23/18 10/23/18 19:37 19:37 19:46 WBC RBC Hgb Hct MCV MCH MCHC RDW Plt Count MPV Neut % (Auto) Lymph % (Auto) [place] % (Auto) Eos % (Auto) Baso % (Auto) Neut # (Auto) Lymph # (Auto) [place] # (Auto) Eos # (Auto) Baso # (Auto) PT INR APTT Sodium Potassium Chloride Carbon Dioxide Anion Gap BUN Creatinine Est GFR ( Amer) Est GFR (Non-Af Amer) POC Glucose (mg/dL) Random Glucose Lactic Acid 2.5 H Calcium Total Bilirubin AST ALT Alkaline Phosphatase Troponin I Total Protein Albumin Globulin Albumin/Globulin Ratio Urine Color Yellow Urine Clarity Slighty-cloudy Urine pH 5.0 Ur Specific [place] 1.016 Urine Protein Negative Urine Glucose (UA) Neg Urine Ketones Negative Urine Blood Negative Urine Nitrate Negative Urine Bilirubin Negative Urine Urobilinogen 0.2-1.0 Ur Leukocyte Esterase Trace Urine RBC (Auto) 2 Urine Microscopic WBC 4 Ur Squamous Epith Cells 1 Valproic Acid < 10.0 L Influenza Typ A,B (EIA) 10/23/18 10/23/18 10/23/18 19:57 21:15 22:39 WBC RBC Hgb Hct MCV MCH MCHC RDW Plt Count MPV Neut % (Auto) Lymph % (Auto) [place] % (Auto) Eos % (Auto) Baso % (Auto) Neut # (Auto) Lymph # (Auto) [place] # (Auto) Eos # (Auto) Baso # (Auto) PT 10.9 INR 1.0 APTT 36.2 Sodium Potassium Chloride Carbon Dioxide Anion Gap BUN Creatinine Est GFR ( Amer) Est GFR (Non-Af Amer) POC Glucose (mg/dL) 101 Random Glucose Lactic Acid Calcium Total Bilirubin AST ALT Alkaline Phosphatase Troponin I Total Protein Albumin Globulin Albumin/Globulin Ratio Urine Color Urine Clarity Urine pH Ur Specific [place] Urine Protein Urine Glucose (UA) Urine Ketones Urine Blood Urine Nitrate Urine Bilirubin Urine Urobilinogen Ur Leukocyte Esterase Urine RBC (Auto) Urine Microscopic WBC Ur Squamous Epith Cells Valproic Acid Influenza Typ A,B (EIA) Negative for flu a/b 10/24/18 10/24/18 12:15 12:15 WBC 10.1 RBC 4.64 Hgb 14.0 Hct 42.5 MCV 91.6 MCH 30.1 MCHC 32.9 L RDW 14.1 Plt Count 249 MPV 7.2 Neut % (Auto) 62.7 Lymph % (Auto) 23.9 [place] % (Auto) 9.8 Eos % (Auto) 3.0 Baso % (Auto) 0.6 Neut # (Auto) 6.4 Lymph # (Auto) 2.4 [place] # (Auto) 1.0 H Eos # (Auto) 0.3 Baso # (Auto) 0.1 PT INR APTT Sodium 138 Potassium 4.0 Chloride 103 Carbon Dioxide 25 Anion Gap 14 BUN 6 L Creatinine 0.5 L Est GFR ( Amer) > 60 Est GFR (Non-Af Amer) > 60 POC Glucose (mg/dL) Random Glucose 91 Lactic Acid Calcium 9.0 Total Bilirubin AST ALT Alkaline Phosphatase Troponin I Total Protein Albumin Globulin Albumin/Globulin Ratio Urine Color Urine Clarity Urine pH Ur Specific [place] Urine Protein Urine Glucose (UA) Urine Ketones Urine Blood Urine Nitrate Urine Bilirubin Urine Urobilinogen Ur Leukocyte Esterase Urine RBC (Auto) Urine Microscopic WBC Ur Squamous Epith Cells Valproic Acid Influenza Typ A,B (EIA) Assessment & Plan (1) Status epilepticus Assessment and Plan: This appears to have resolved. The patient is back to baseline now. He does have some agitation. I recommend adding Vimpat 50 mg BID for better seizure control. This can be titrated up to 100 mg BID if Keppra is reduced. Outpatient management by neurology is recommended. Thank you for this consultation. Status: Acute
[2018-10-24] MEDS: Lacosamide 50 MG Tab PO SCH (16:22)
--- NOTE | 2018-10-24 17:11 | CP.PCM.HP ---
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 In delirium and post ictal, agitated, confuse. at times lethargic Present on Admission - Present on Admission Any Indicators Present on Admission: No Review of Systems - Constitutional Constitutional: As Per HPI - Cardiovascular Cardiovascular: As Per HPI - Respiratory Respiratory: As Per HPI - Gastrointestinal Gastrointestinal: As Per HPI - Musculoskeletal Musculoskeletal: As Per HPI - Neurological Neurological: As Per HPI - Psychiatric Psychiatric: As Per HPI Past Patient History - Infectious Disease Hx of Infectious Diseases: None - Tetanus Immunizations Tetanus Immunization: Unknown - Past Medical History & Family History Past Medical History?: Yes - Past Social History Alcohol: None Drugs: Denies - CARDIAC Hx Hypercholesterolemia: Yes Hx Hypertension: Yes Hx Peripheral Edema: Yes (B/L LE no longer swollen) - PULMONARY Hx Chronic Obstructive Pulmonary Disease (COPD): Yes Hx Pneumonia: Yes Hx Pulmonary Embolism: Yes - NEUROLOGICAL Hx Dementia: Yes Hx Multiple Sclerosis: Yes Hx Seizures: Yes - HEENT Hx HEENT Problems: Yes (Poor vision, L eye) - RENAL Hx Chronic Kidney Disease: Yes Hx Kidney Stones: Yes - ENDOCRINE/METABOLIC Hx Endocrine Disorders: No - HEMATOLOGICAL/ONCOLOGICAL Hx Anemia: Yes Hx Human Immunodeficiency Virus (HIV): No - INTEGUMENTARY Hx Dermatological Problems: No - MUSCULOSKELETAL/RHEUMATOLOGICAL Hx Arthritis: Yes (BACK) Hx Rheumatoid Arthritis: Yes - GASTROINTESTINAL Hx Gastrointestinal Disorders: Yes - GENITOURINARY/GYNECOLOGICAL Hx Genitourinary Disorders: Yes Hx Incontinence: Yes Hx Urinary Tract Infection: Yes (Recurrent) Other/Comment: 2wF to drainage bag intact - PSYCHIATRIC Hx Anxiety: Yes Hx Depression: Yes - SURGICAL HISTORY Hx Surgeries: Yes Other/Comment: cysto with removal of stent 05/19/16- kidney stones - ANESTHESIA Hx Anesthesia: Yes Hx Anesthesia Reactions: No Hx Malignant Hyperthermia: No Meds Allergies/Adverse Reactions: Allergies Allergy/AdvReac Type Severity Reaction Status Date / Time cefazolin Allergy RASH, Verified 06/06/18 14:37 ITCHINESS Physical Exam - Constitutional Appears: Agitated, Confused, Chronically Ill Additional comments: lethargic at times - Head Exam Head Exam: ATRAUMATIC - Eye Exam Eye Exam: Normal appearance - ENT Exam ENT Exam: Mucous Membranes Moist - Neck Exam Neck exam: Positive for: Full Rom - Respiratory Exam Respiratory Exam: Decreased Breath Sounds - Cardiovascular Exam Cardiovascular Exam: Tachycardia, REGULAR RHYTHM, +S1, +S2 - GI/Abdominal Exam GI & Abdominal Exam: Soft - Neurological Exam Neurological exam: Altered - Skin Skin Exam: Normal Color Results - Vital Signs Recent Vital Signs: Last Vital Signs Temp 97.5 F L 10/24/18 16:23 Pulse 98 H 10/24/18 16:23 Resp 16 10/24/18 16:23 BP 108/77 10/24/18 16:23 Pulse Ox 92 L 10/24/18 16:23 - Labs Result Diagrams: 10/24/18 12:15 10/24/18 12:15 Labs: Laboratory Results - last 24 hr 10/23/18 10/23/18 10/23/18 19:26 19:37 19:37 WBC 7.4 RBC 5.01 Hgb 15.3 Hct 45.5 MCV 90.9 MCH 30.5 MCHC 33.5 RDW 14.0 Plt Count 293 MPV 7.5 Neut % (Auto) 33.4 L Lymph % (Auto) 46.2 H [place] % (Auto) 14.6 H Eos % (Auto) 4.8 H Baso % (Auto) 1.0 Neut # (Auto) 2.5 Lymph # (Auto) 3.4 [place] # (Auto) 1.1 H Eos # (Auto) 0.4 Baso # (Auto) 0.1 PT INR APTT Sodium 140 Potassium 4.4 Chloride 99 Carbon Dioxide 30 Anion Gap 15 BUN 10 Creatinine 0.5 L Est GFR ( Amer) > 60 Est GFR (Non-Af Amer) > 60 POC Glucose (mg/dL) 67 Random Glucose 71 L Lactic Acid Calcium 9.6 Total Bilirubin 0.3 AST 37 ALT 34 Alkaline Phosphatase 91 Troponin I < 0.0120 Total Protein 8.0 Albumin 4.6 Globulin 3.4 Albumin/Globulin Ratio 1.4 Urine Color Urine Clarity Urine pH Ur Specific [place] Urine Protein Urine Glucose (UA) Urine Ketones Urine Blood Urine Nitrate Urine Bilirubin Urine Urobilinogen Ur Leukocyte Esterase Urine RBC (Auto) Urine Microscopic WBC Ur Squamous Epith Cells Valproic Acid Influenza Typ A,B (EIA) 0410/23/18 10/23/18 19:37 19:37 19:46 WBC RBC Hgb Hct MCV MCH MCHC RDW Plt Count MPV Neut % (Auto) Lymph % (Auto) [place] % (Auto) Eos % (Auto) Baso % (Auto) Neut # (Auto) Lymph # (Auto) [place] # (Auto) Eos # (Auto) Baso # (Auto) PT INR APTT Sodium Potassium Chloride Carbon Dioxide Anion Gap BUN Creatinine Est GFR ( Amer) Est GFR (Non-Af Amer) POC Glucose (mg/dL) Random Glucose Lactic Acid 2.5 H Calcium Total Bilirubin AST ALT Alkaline Phosphatase Troponin I Total Protein Albumin Globulin Albumin/Globulin Ratio Urine Color Yellow Urine Clarity Slighty-cloudy Urine pH 5.0 Ur Specific [place] 1.016 Urine Protein Negative Urine Glucose (UA) Neg Urine Ketones Negative Urine Blood Negative Urine Nitrate Negative Urine Bilirubin Negative Urine Urobilinogen 0.2-1.0 Ur Leukocyte Esterase Trace Urine RBC (Auto) 2 Urine Microscopic WBC 4 Ur Squamous Epith Cells 1 Valproic Acid < 10.0 L Influenza Typ A,B (EIA) 10/23/18 10/23/18 10/23/18 19:57 21:15 22:39 WBC RBC Hgb Hct MCV MCH MCHC RDW Plt Count MPV Neut % (Auto) Lymph % (Auto) [place] % (Auto) Eos % (Auto) Baso % (Auto) Neut # (Auto) Lymph # (Auto) [place] # (Auto) Eos # (Auto) Baso # (Auto) PT 10.9 INR 1.0 APTT 36.2 Sodium Potassium Chloride Carbon Dioxide Anion Gap BUN Creatinine Est GFR ( Amer) Est GFR (Non-Af Amer) POC Glucose (mg/dL) 101 Random Glucose Lactic Acid Calcium Total Bilirubin AST ALT Alkaline Phosphatase Troponin I Total Protein Albumin Globulin Albumin/Globulin Ratio Urine Color Urine Clarity Urine pH Ur Specific [place] Urine Protein Urine Glucose (UA) Urine Ketones Urine Blood Urine Nitrate Urine Bilirubin Urine Urobilinogen Ur Leukocyte Esterase Urine RBC (Auto) Urine Microscopic WBC Ur Squamous Epith Cells Valproic Acid Influenza Typ A,B (EIA) Negative for flu a/b 10/24/18 10/24/18 12:15 12:15 WBC 10.1 RBC 4.64 Hgb 14.0 Hct 42.5 MCV 91.6 MCH 30.1 MCHC 32.9 L RDW 14.1 Plt Count 249 MPV 7.2 Neut % (Auto) 62.7 Lymph % (Auto) 23.9 [place] % (Auto) 9.8 Eos % (Auto) 3.0 Baso % (Auto) 0.6 Neut # (Auto) 6.4 Lymph # (Auto) 2.4 [place] # (Auto) 1.0 H Eos # (Auto) 0.3 Baso # (Auto) 0.1 PT INR APTT Sodium 138 Potassium 4.0 Chloride 103 Carbon Dioxide 25 Anion Gap 14 BUN 6 L Creatinine 0.5 L Est GFR ( Amer) > 60 Est GFR (Non-Af Amer) > 60 POC Glucose (mg/dL) Random Glucose 91 Lactic Acid Calcium 9.0 Total Bilirubin AST ALT Alkaline Phosphatase Troponin I Total Protein Albumin Globulin Albumin/Globulin Ratio Urine Color Urine Clarity Urine pH Ur Specific [place] Urine Protein Urine Glucose (UA) Urine Ketones Urine Blood Urine Nitrate Urine Bilirubin Urine Urobilinogen Ur Leukocyte Esterase Urine RBC (Auto) Urine Microscopic WBC Ur Squamous Epith Cells Valproic Acid Influenza Typ A,B (EIA) Assessment & Plan (1) Status epilepticus Status: Acute (2) Anxiety Status: Acute Priority: Medium (3) Change in mental status Status: Acute Onset Date: ~02/20/17 (4) Constipation Status: Chronic Priority: Low (5) DVT prophylaxis Status: Acute (6) Delirium due to general medical condition Status: Acute (7) Lethargy Status: Acute (8) Multiple sclerosis Status: Chronic (9) Post-ictal state Status: Acute - Assessment and Plan (Free Text) Plan: As per orders.
[2018-10-24] MEDS: Oxycodone/Acetaminophen 5/325 mg Tab PO PRN ×2 (17:15→22:33)
[2018-10-24] MEDS ORDERED: DiphenhydrAMINE 50 mg/ml Inj IVP STA (23:38)
[2018-10-24] MEDS ORDERED: DiphenhydrAMINE 50 mg/ml Inj ONE (23:39)
[2018-10-25] MEDS: Oxycodone/Acetaminophen 5/325 mg Tab PO PRN ×2 (04:21→12:15)
[2018-10-25] MEDS: Dextrose 5%/0.45% NS 1,000 ML IV SCH ×3 (06:08→21:48)
[2018-10-25] MEDS: Lacosamide 50 MG Tab PO SCH ×2 (08:51→16:26)
--- NOTE | 2018-10-25 11:24 | PQF ---
PROVIDER RESPONSE TEXT: Vascular dementia REVIEWER QUERY TEXT: Dementia Type and Associated Features Dementia is documented in the Medical Record. Please specify the type With or Without Behavioral Dist urbance Such as: -- Senile -- Alzheimer?s -- Vascular -- Frontal -- Frontotemporal -- Lewy body -- Other, please specify The patient's Clinical Indicators include: PMH: Dementia, MS, Epilepsy Query created by: Ava Skelton on 10/25/2018 11:04 AM Electronically signed by: Leo Morris MD 10/25/2018 11:21 AM
--- NOTE | 2018-10-25 12:44 | CP.PCM.PN ---
Subjective - Date & Time of Evaluation Date of Evaluation: 10/25/18 Time of Evaluation: 12:44 - Subjective Subjective: Patient condition improving Objective - Vital Signs/Intake and Output Vital Signs (last 24 hours): Temp Pulse Resp BP Pulse Ox 97.9 F 74 18 111/68 96 10/25/18 12:00 10/25/18 12:00 10/25/18 12:00 10/25/18 12:00 10/25/18 12:00 Intake and Output: 10/25/18 10/25/18 11:59 23:59 Intake Total 2350 Output Total 1700 Balance 650 - Medications Medications: Current Medications Baclofen (Lioresal) 20 mg PO Q8 [facility] Last Admin: 10/25/18 08:49 Dose: 20 mg Enoxaparin Sodium (Lovenox) 40 mg SC HS [facility]; Protocol Last Admin: 10/24/18 21:23 Dose: 40 mg Fentanyl (Duragesic) 1 patch TD Q3D [facility]; Protocol Last Admin: 10/24/18 02:32 Dose: 1 patch Home Med (Dimethyl Fumarate [Tecfidera]) 240 mg PO Q12 [facility] Last Admin: 10/25/18 08:48 Dose: 240 mg Dextrose/Sodium Chloride (Dextrose 5%/0.45% Ns 1000 Ml) 1,000 mls @ 125 mls/hr IV .Q8H [facility] Last Admin: 10/25/18 12:28 Dose: 125 mls/hr Lacosamide (Vimpat) 50 mg PO BID [facility] Last Admin: 10/25/18 08:51 Dose: 50 mg Lamotrigine (Lamictal) 200 mg PO Q12 [facility] Last Admin: 10/25/18 08:49 Dose: 200 mg Levetiracetam (Keppra) 2,000 mg PO Q12 [facility] Last Admin: 10/25/18 08:48 Dose: 2,000 mg Lorazepam (Ativan) 1 mg IVP Q6 PRN PRN Reason: AGITATION AND SEIZURE Last Admin: 10/25/18 04:20 Dose: 1 mg Lorazepam (Ativan) 1 mg PO Q8 PRN PRN Reason: Agitation Oxycodone/Acetaminophen (Percocet 5/325 Mg Tab) 1 tab PO Q6 PRN PRN Reason: Pain, moderate (4-7) Stop: 10/26/18 23:45 Last Admin: 10/25/18 12:15 Dose: 1 tab - Labs Labs: 10/24/18 12:15 10/24/18 12:15 PT 10.9 Seconds (9.8-13.1) 10/23/18 21:15 INR 1.0 10/23/18 21:15 APTT 36.2 Seconds (25.6-37.1) 10/23/18 21:15 - Constitutional Appears: Confused, Chronically Ill - Head Exam Head Exam: ATRAUMATIC, NORMAL INSPECTION, NORMOCEPHALIC - Eye Exam Eye Exam: Normal appearance - ENT Exam ENT Exam: Mucous Membranes Dry - Neck Exam Neck Exam: Full ROM - Respiratory Exam Respiratory Exam: Decreased Breath Sounds, Clear to Ausculation Bilateral - Cardiovascular Exam Cardiovascular Exam: Tachycardia, REGULAR RHYTHM, +S1, +S2 - GI/Abdominal Exam GI & Abdominal Exam: Normal Bowel Sounds - Neurological Exam Neurological Exam: Alert, Altered, Awake - Psychiatric Exam Psychiatric exam: Anxious, Depressed, Flat Affect - Skin Skin Exam: Pallor Assessment and Plan (1) Status epilepticus Status: Acute (2) Anxiety Status: Acute (3) Constipation Status: Chronic (4) DVT prophylaxis Status: Acute (5) Delirium due to general medical condition Status: Acute (6) Lethargy Status: Acute (7) Multiple sclerosis Status: Chronic (8) Post-ictal state Status: Acute
[2018-10-25] MEDS: Enoxaparin 40 mg Syringe SC SCH (21:46)
[2018-10-26] MEDS: Dextrose 5%/0.45% NS 1,000 ML IV SCH (06:22)
[2018-10-26 08:06] VITALS: RESP 20
--- NOTE | 2018-10-26 10:28 | CP.PCM.DIS ---
Provider - Provider Date of Admission: 10/23/18 21:15 Attending physician: Leo Morris MD Consults: 10/24/18 00:08 Neurology Consult Stat Comment: Consulting Provider: Silvino Pimentel Consulting Physician: Silvino Pimentel Reason for Consult: SEIZURE, MS 10/24/18 00:30 Wound Care [Nursing Referral for Wound Care] Routine Comment: Physician Instructions: Reason For Exam: left heel scab, bilateral elbow and toes redness Time Spent in preparation of Discharge (in minutes): 30 Diagnosis - Discharge Diagnosis (1) Status epilepticus Status: Acute (2) Anxiety Status: Acute Priority: Medium (3) Constipation Status: Chronic Priority: Low (4) DVT prophylaxis Status: Acute (5) Delirium due to general medical condition Status: Acute (6) Lethargy Status: Acute (7) Multiple sclerosis Status: Chronic (8) Post-ictal state Status: Acute Hospital Course - Lab Results Lab Results: Micro Results 10/23/18 19:30 Blood Blood Culture - Preliminary NO GROWTH AFTER 48 HOURS 10/23/18 20:00 Blood Blood Culture - Preliminary NO GROWTH AFTER 48 HOURS 10/24/18 18:20 Naris MRSA Culture (Admit) - Final MRSA NOT DETECTED 10/23/18 19:46 Urine,Catheterized Urine Culture - Final No Growth (<1,000 CFU/ML) Most Recent Lab Values WBC 10.1 K/uL (4.8-10.8) 10/24/18 12:15 RBC 4.64 Mil/uL (4.40-5.90) 10/24/18 12:15 Hgb 14.0 g/dL (12.0-18.0) 10/24/18 12:15 Hct 42.5 % (35.0-51.0) 10/24/18 12:15 MCV 91.6 fl (80.0-94.0) 10/24/18 12:15 MCH 30.1 pg (27.0-31.0) 10/24/18 12:15 MCHC 32.9 g/dL (33.0-37.0) L 10/24/18 12:15 RDW 14.1 % (11.5-14.5) 10/24/18 12:15 Plt Count 249 K/uL (130-400) 10/24/18 12:15 MPV 7.2 fl (7.2-11.7) 10/24/18 12:15 Neut % (Auto) 62.7 % (50.0-75.0) 10/24/18 12:15 Lymph % (Auto) 23.9 % (20.0-40.0) 10/24/18 12:15 [place] % (Auto) 9.8 % (0.0-10.0) 10/24/18 12:15 Eos % (Auto) 3.0 % (0.0-4.0) 10/24/18 12:15 Baso % (Auto) 0.6 % (0.0-2.0) 10/24/18 12:15 Neut # (Auto) 6.4 K/uL (1.8-7.0) 10/24/18 12:15 Lymph # (Auto) 2.4 K/uL (1.0-4.3) 10/24/18 12:15 [place] # (Auto) 1.0 K/uL (0.0-0.8) H 10/24/18 12:15 Eos # (Auto) 0.3 K/uL (0.0-0.7) 10/24/18 12:15 Baso # (Auto) 0.1 K/uL (0.0-0.2) 10/24/18 12:15 PT 10.9 Seconds (9.8-13.1) 10/23/18 21:15 INR 1.0 10/23/18 21:15 APTT 36.2 Seconds (25.6-37.1) 10/23/18 21:15 Sodium 138 mmol/l (132-148) 10/24/18 12:15 Potassium 4.0 MMOL/L (3.6-5.0) 10/24/18 12:15 Chloride 103 mmol/L (98-107) 10/24/18 12:15 Carbon Dioxide 25 mmol/L (22-30) 10/24/18 12:15 Anion Gap 14 (10-20) 10/24/18 12:15 BUN 6 mg/dl (9-20) L 10/24/18 12:15 Creatinine 0.5 mg/dl (0.8-1.5) L 10/24/18 12:15 Est GFR ( Amer) > 60 10/24/18 12:15 Est GFR (Non-Af Amer) > 60 10/24/18 12:15 POC Glucose (mg/dL) 137 mg/dL (65-110) H 10/26/18 05:06 Random Glucose 91 mg/dL (75-110) 10/24/18 12:15 Lactic Acid 2.5 mmol/L (0.7-2.1) H 10/23/18 19:37 Calcium 9.0 mg/dL (8.4-10.2) 10/24/18 12:15 Total Bilirubin 0.3 mg/dl (0.2-1.3) 10/23/18 19:37 AST 37 U/L (17-59) 10/23/18 19:37 ALT 34 U/L (21-72) 10/23/18 19:37 Alkaline Phosphatase 91 U/L (38-126) 10/23/18 19:37 Troponin I < 0.0120 ng/mL (0.00-0.120) 10/23/18 19:37 Total Protein 8.0 G/DL (6.3-8.2) 10/23/18 19:37 Albumin 4.6 g/dL (3.5-5.0) 10/23/18 19:37 Globulin 3.4 gm/dL (2.2-3.9) 10/23/18 19:37 Albumin/Globulin Ratio 1.4 (1.0-2.1) 10/23/18 19:37 Urine Color Yellow (YELLOW) 10/23/18 19:46 Urine Clarity Slighty-cloudy (Clear) 10/23/18 19:46 Urine pH 5.0 (5.0-8.0) 10/23/18 19:46 Ur Specific [place] 1.016 (1.003-1.030) 10/23/18 19:46 Urine Protein Negative mg/dL (NEGATIVE) 10/23/18 19:46 Urine Glucose (UA) Neg mg/dL (NEGATIVE) 10/23/18 19:46 Urine Ketones Negative mg/dL (NEGATIVE) 10/23/18 19:46 Urine Blood Negative (NEGATIVE) 10/23/18 19:46 Urine Nitrate Negative (NEGATIVE) 10/23/18 19:46 Urine Bilirubin Negative (NEGATIVE) 10/23/18 19:46 Urine Urobilinogen 0.2-1.0 mg/dL (0.2-1.0) 10/23/18 19:46 Ur Leukocyte Esterase Trace [place]/uL (Negative) 10/23/18 19:46 Urine RBC (Auto) 2 /hpf (0-3) 10/23/18 19:46 Urine Microscopic WBC 4 /hpf (0-5) 10/23/18 19:46 Ur Squamous Epith Cells 1 /hpf (0-5) 10/23/18 19:46 Valproic Acid < 10.0 ug/mL (50.0-100.0) L 10/23/18 19:37 Influenza Typ A,B (EIA) Negative for flu a/b (NEGATIVE) 10/23/18 19:57 - Hospital Course Hospital Course: 52 yo male with past medical hx Dementia, Depression, Deep Vein Thrombosis, Kidney Stones, Multiple Sclerosis with severe neuro deficit paraplegia bed ridding since 2008, Peripheral Edema , Pneumonia, Pulmonary Embolism , Chronic Kidney Disease, Seizures, recurrent UTI and sepsis presented in ER with status epilepticus. In delirium and post ictal, agitated, confuse. He well improved on present rx.At present on his baseline status will dc home f/u with neuro. Discharge Exam - Head Exam Head Exam: ATRAUMATIC, NORMAL INSPECTION, NORMOCEPHALIC Discharge Plan - Follow Up Plan Condition: GUARDED Disposition: HOME/ ROUTINE Instructions: Low Blood Sugar, Adult (DC), Seizures, Adult (DC) Additional Instructions: Follow with your primary MD. Return to ER for return of symptoms.
[2018-10-26] MEDS: Oxycodone/Acetaminophen 5/325 mg Tab PO PRN (10:30)
[2018-10-26] MEDS: Lacosamide 50 MG Tab PO SCH (10:34)
[2018-10-26 12:43] VITALS: BP 122/76; PULSE 82; TEMP 97.8; O2SAT 94
== END 2018-10-26 14:20 | disposition home health service (06) | DRG 101 ==
LOC: H.ER 19:11 → H.ERHOLD 21:15 → H.ICU/CCU 10-24 00:05 → H.TEL 10-25 11:26
PROVIDERS: ADMIT Internal Medicine; ATTEND Internal Medicine
DX: G40.401 Other generalized epilepsy and epileptic syndromes, not intractable, with status epilepticus (principal); G82.20 Paraplegia, unspecified; F05 Delirium due to known physiological condition; J44.0 Chronic obstructive pulmonary disease with (acute) lower respiratory infection; G35 Multiple sclerosis; F01.50 Vascular dementia, unspecified severity, without behavioral disturbance, psychotic disturbance, mood disturbance, and anxiety; E16.2 Hypoglycemia, unspecified; E78.00 Pure hypercholesterolemia, unspecified; F41.9 Anxiety disorder, unspecified; G40.901 Epilepsy, unspecified, not intractable, with status epilepticus; H54.62 Unqualified visual loss, left eye, normal vision right eye; I12.9 Hypertensive chronic kidney disease with stage 1 through stage 4 chronic kidney disease, or unspecified chronic kidney disease; Z87.01 Personal history of pneumonia (recurrent); K59.00 Constipation, unspecified; M06.9 Rheumatoid arthritis, unspecified; N18.9 Chronic kidney disease, unspecified; Z86.711 Personal history of pulmonary embolism; Z87.440 Personal history of urinary (tract) infections; Z87.442 Personal history of urinary calculi; D64.9 Anemia, unspecified; F32.9 Major depressive disorder, single episode, unspecified; M46.90 Unspecified inflammatory spondylopathy, site unspecified; R32 Unspecified urinary incontinence

== ENCOUNTER 2018-10-28 13:50 | Emergency (ER) | payer MEDICARE, OTHER ==
[2018-10-28 13:50] VITALS: BMI 33.4
[2018-10-28] MEDS ORDERED: Sodium Chloride 0.9% 1,000 ML IV STA (14:48)
[2018-10-28 15:23] LABS: BASO # 0.1 K/uL (0.0-0.2); BASO % 0.6 % (0.0-2.0); EOS # 0.4 K/uL (0.0-0.7); EOS % 3.4 % (0.0-4.0); HEMOGLOBIN 15.1 g/dL (12.0-18.0); LYMPH # 2.2 K/uL (1.0-4.3); LYMPH % 20.3 % (20.0-40.0); MEAN CELL VOLUME 92.6 fl (80.0-94.0); MEAN CORPUSCULAR HEMOGLOBIN 30.6 pg (27.0-31.0); MEAN CORPUSCULAR HGB CONC 33.1 g/dL (33.0-37.0); MEAN PLATELET VOLUME 7.6 fl (7.2-11.7); MONO % 9.4 % (0.0-10.0); NEUT # 7.3 K/uL (1.8-7.0); NEUT % 66.3 % (50.0-75.0); RBC 4.94 Mil/uL (4.40-5.90); WHITE BLOOD COUNT 10.9 K/uL (4.8-10.8)
[2018-10-28 15:29] LABS: VENOUS BLOOD GAS BASE EXCESS 3.3 mmol/L (0.0-2.0); VENOUS BLOOD GAS PCO2 48 mmHg (40-60); VENOUS BLOOD GAS PO2 48 mm/Hg (30-55); VENOUS BLOOD PH 7.39 (7.32-7.43)
[2018-10-28 15:30] LABS: URINE BILIRUBIN NEGATIVE (NEGATIVE); URINE BLOOD SMALL (NEGATIVE); URINE CALCIUM OXALATE CRYSTALS RARE /hpf (<OCC); URINE CLARITY SLIGHTY-CLOUDY (Clear); URINE COLOR YELLOW (YELLOW); URINE GLUCOSE (UA) NEG (NEGATIVE); URINE HYALINE CAST 0-2 /hpf (0-2); URINE LEUKOCYTE ESTERASE NEG Leu/uL (Negative); URINE PROTEIN 30 mg/dL (NEGATIVE); URINE UROBILINOGEN 0.2-1.0 mg/dL (0.2-1.0)
--- NOTE | 2018-10-28 15:35 | CARD ---
APPROVED REPORT Date of service: 10/28/2018 EKG Measurement Heart [id number] <Conclusion> Normal sinus rhythm Left anterior fascicular block Abnormal ECG
[2018-10-28 15:43] LABS: ALB/GLOB RATIO 1.3 (1.0-2.1); ALBUMIN 4.5 g/dL (3.5-5.0); ALT/SGPT 33 U/L (21-72); AST/SGOT 25 U/L (17-59); BLOOD UREA NITROGEN 15 mg/dl (9-20); CALCIUM 9.7 mg/dL (8.4-10.2); GFR NON-AFRICAN AMERICAN > 60
--- NOTE | 2018-10-28 17:07 | ED PDOC ---
HPI: Altered Mental Status Time Seen by Provider: 10/28/18 14:07 Chief Complaint (Nursing): Altered Mental Status Chief Complaint (Provider): Altered Mental Status History Per: Patient, Family () Onset/Duration Of Symptoms: Hrs (couple of hours ago ) Additional Complaint(s): 53 year old male with a past medical history of seizure disorder and multiple sclerosis presents to the ED with sudden onset of diaphoresis and tremors today. Patient has an altered mental status and is a poor historian therefore most of the history was taken from the . Patient is paraplegic and has been bed bound for many years. Patient denies any other complaints. The of the patient also denies that the patient has had a fever, vomiting, chest pains, and seizures. PMD: Leo Morris MD Past Medical History Reviewed: Historical Data Vital Signs: Last Vital Signs Temp 98.2 F 10/28/18 13:54 Pulse 99 H 10/28/18 14:15 Resp 19 10/28/18 14:15 BP 111/68 10/28/18 14:15 Pulse Ox 97 10/28/18 14:36 MARIXA Report Viewed: Yes - Medical History PMH: Anemia, Anxiety, Arthritis (BACK), COPD, Dementia, Depression, Deep Vein Thrombosis, HTN, Hypercholesterolemia, Kidney Stones, Multiple Sclerosis, Peripheral Edema (B/L LE no longer swollen), Pneumonia, Pulmonary Embolism, Chronic Kidney Disease, Rheumatoid Arthritis, Seizures Denies: HIV - Surgical History Surgical History: No Surg Hx - Family History Family History: States: No Known Family Hx - Immunization History Hx Tetanus Toxoid Vaccination: No Hx Influenza Vaccination: Yes Hx Pneumococcal Vaccination: Yes - Home Medications Home Medications: Ambulatory Orders Medication Instructions Recorded Baclofen [Lioresal] 20 mg PO QID 06/06/18 Dimethyl Fumarate [Tecfidera] 240 mg PO Q12 06/06/18 LORazepam [Ativan] 1 mg PO Q8 PRN tab 06/11/18 lamoTRIgine [Lamictal] 200 mg PO Q12 tab 06/11/18 fentaNYL 50 mcg/hr [Duragesic 1 patch TD Q3D #30 patch 06/21/18 Patch 50 mcg/hr] Lacosamide [Vimpat] 50 mg PO BID tab 10/26/18 Levetiracetam 1,000 mg PO QID 10/28/18 QUEtiapine [Seroquel] 25 mg PO Q8 PRN 10/28/18 - Allergies Allergies/Adverse Reactions: Allergies Allergy/AdvReac Type Severity Reaction Status Date / Time cefazolin Allergy RASH, Verified 10/28/18 13:54 ITCHINESS Review of Systems ROS Statement: Except As Marked, All Systems Reviewed And Found Negative Constitutional: Negative for: Fever Cardiovascular: Negative for: Chest Pain Gastrointestinal: Negative for: Vomiting Musculoskeletal: Positive for: Other Neurological: Positive for: Other (diaphoresis and tremors ). Negative for: Seizures Physical Exam - Reviewed Nursing Documentation Reviewed: Yes Vital Signs Reviewed: Yes - Physical Exam Appears: Positive for: Well (obese), Non-toxic, No Acute Distress Head Exam: Positive for: ATRAUMATIC, NORMAL INSPECTION, NORMOCEPHALIC Skin: Positive for: Normal Color, Warm, DRY Eye Exam: Positive for: Nystagmus Cardiovascular/Chest: Positive for: Regular Rate, Rhythm Respiratory: Positive for: CNT, Normal Breath Sounds Gastrointestinal/Abdominal: Positive for: Normal Exam, Soft, Tenderness Extremity: Positive for: Other (both legs paraplegic; no strength, no sensation.). Negative for: Normal ROM (chronic upper extremity tremor) Neurological/Psych: Positive for: Awake, Alert, Normal Tone, Oriented (X3) - Laboratory Results Result Diagrams: 10/28/18 15:19 10/28/18 15:19 Lab Results: pO2 48 mm/Hg (30-55) 10/28/18 15:20 VBG pH 7.39 (7.32-7.43) 10/28/18 15:20 VBG pCO2 48 mmHg (40-60) 10/28/18 15:20 VBG HCO3 27.1 mmol/L 10/28/18 15:20 VBG Total CO2 30.6 mmol/L (22-28) H 10/28/18 15:20 VBG O2 Sat (Calc) 86.4 % (40-65) H 10/28/18 15:20 VBG Base Excess 3.3 mmol/L (0.0-2.0) H 10/28/18 15:20 VBG Potassium 3.9 mmol/L (3.6-5.2) 10/28/18 15:20 Sodium 139.0 mmol/L (132-148) 10/28/18 15:20 Chloride 103.0 mmol/L (98-107) 10/28/18 15:20 Glucose 129 mg/dL (75-110) H 10/28/18 15:20 Lactate 3.7 mmol/L (0.7-2.1) H 10/28/18 15:20 FiO2 21.0 % 10/28/18 15:20 Total Bilirubin 0.4 mg/dl (0.2-1.3) 10/28/18 15: AST 25 U/L (17-59) 10/28/18 15:19 ALT 33 U/L (21-72) 10/28/18 15:19 Alkaline Phosphatase 89 U/L (38-126) 10/28/18 15: Total Protein 8.1 G/DL (6.3-8.2) 10/28/18 15: Albumin 4.5 g/dL (3.5-5.0) 10/28/18 15: Globulin 3.6 gm/dL (2.2-3.9) 10/28/18 15: Albumin/Globulin Ratio 1.3 (1.0-2.1) 10/28/18 15:19 Urine Color Yellow (YELLOW) 10/28/18 15:01 Urine Clarity Slighty-cloudy (Clear) 10/28/18 15:01 Urine pH 6.0 (5.0-8.0) 10/28/18 15:01 Ur Specific [place] 1.023 (1.003-1.030) 10/28/18 15:01 Urine Protein 30 mg/dL (NEGATIVE) 10/28/18 15:01 Urine Glucose (UA) Neg mg/dL (NEGATIVE) 10/28/18 15:01 Urine Ketones Negative mg/dL (NEGATIVE) 10/28/18 15:01 Urine Blood Small (NEGATIVE) 10/28/18 15:01 Urine Nitrate Negative (NEGATIVE) 10/28/18 15:01 Urine Bilirubin Negative (NEGATIVE) 10/28/18 15:01 Urine Urobilinogen 0.2-1.0 mg/dL (0.2-1.0) 10/28/18 15:01 Ur Leukocyte Esterase Neg [place]/uL (Negative) 10/28/18 15:01 Urine RBC (Auto) 6 /hpf (0-3) H 10/28/18 15:01 Urine Microscopic WBC 4 /hpf (0-5) 10/28/18 15:01 Calcium Oxalate Crystal Rare /hpf (<OCC) 10/28/18 15:01 Hyaline Casts 0-2 /hpf (0-2) 10/28/18 15:01 - ECG O2 Sat by Pulse Oximetry: 97 (RA) Pulse Ox Interpretation: Normal - Progress Re-evaluation Time: 17:00 Condition: Re-examined, Improved Medical Decision Making Medical Decision Making: Time: 14:07 Initial Impression: Diaphoresis, rule out infections like UTI and dehydrations Plan: -Venous blood gas shock panel -Electrocardiogram -Complete metabolic panel -Magnesium -Phosphorous -Complete blood count -Gluxose POC -Sodium Chloride 0.9% 1,000 ml IV -Blood culture -Urine culture -personnel monitor -re-evaluation --------- -------- Scribe Attestation: Documented by Ari Mondragon, acting as a scribe Ethan Patel MD Provider Scribe Attestation: All medical record entries made by the Scribe were at my direction and personally dictated by me. I have reviewed the chart and agree that the record accurately reflects my personal performance of the history, physical exam, medical decision making, and the department course for this patient. I have also personally directed, reviewed, and agree with the discharge instructions and disposition Disposition - Clinical Impression Clinical Impression: Diaphoresis, Multiple sclerosis - Patient ED Disposition Is Patient to be Admitted: No Discussed With : Leo Morris Doctor Will See Patient In The: Office Counseled Patient/Family Regarding: Studies Performed, Diagnosis, Need For Followup - Disposition Referrals: Leo Morris MD [Staff Provider] - Disposition: Routine/Home Disposition Time: 17:00 Condition: GOOD Additional Instructions: ALEX LUCAS, thank you for letting us take care of you today. Your provider was Rafal Patel MD and you were treated for AMS. The emergency medical care you received today was directed at your acute symptoms. If you were prescribed any medication, please fill it and take as directed. It may take several days for your symptoms to resolve. Return to the Emergency Department if your symptoms worsen, do not improve, or if you have any other problems. Please contact your doctor or call one of the physicians/clinics you have been referred to that are listed on the Patient Visit Information form that is included in your discharge packet. Bring any paperwork you were given at discharge with you along with any medications you are taking to your follow up visit. Our treatment cannot replace ongoing medical care by a primary care provider outside of the emergency department. Thank you for allowing the [facility] team to be part of your care today. Instructions: Multiple Sclerosis in Adults
[2018-10-29 06:12] VITALS: BP 116/72; PULSE 91; RESP 20; TEMP 97.7
[2018-11-02 12:41] VITALS: O2SAT 97
== END 2018-10-28 20:30 | disposition home or self-care (01) ==
LOC: H.ER 13:50
DX: G35 Multiple sclerosis (principal); L74.513 Primary focal hyperhidrosis, soles; G40.909 Epilepsy, unspecified, not intractable, without status epilepticus; I12.9 Hypertensive chronic kidney disease with stage 1 through stage 4 chronic kidney disease, or unspecified chronic kidney disease; Z74.01 Bed confinement status; Z86.711 Personal history of pulmonary embolism; Z86.718 Personal history of other venous thrombosis and embolism; G82.20 Paraplegia, unspecified
CPT/HCPCS: 80053; 81003; 82803; 82948; 83735; 84100; 85025; 87040; 87086; 93005; 96360; 99285; J7030

== ENCOUNTER 2018-11-26 18:55 | Inpatient (IN) | payer MEDICARE, OTHER ==
[2018-11-26] MEDS ORDERED: Sodium Chloride 0.9% 1,000 ML IV STA (19:27)
[2018-11-26 20:08] LABS: BASO % 0.2 % (0.0-2.0); EOS # 0.1 K/uL (0.0-0.7); EOS % 0.8 % (0.0-4.0); LYMPH # 1.5 K/uL (1.0-4.3); LYMPH % 7.9 % (20.0-40.0); MEAN CELL VOLUME 91.7 fl (80.0-94.0); MEAN CORPUSCULAR HEMOGLOBIN 30.7 pg (27.0-31.0); MEAN CORPUSCULAR HGB CONC 33.5 g/dL (33.0-37.0); MEAN PLATELET VOLUME 7.5 fl (7.2-11.7); MONO # 1.4 K/uL (0.0-0.8); MONO % 7.6 % (0.0-10.0); NEUT # 15.8 K/uL (1.8-7.0); NEUT % 83.5 % (50.0-75.0); PLATELET COUNT 278 K/uL (130-400); RBC 4.89 Mil/uL (4.40-5.90); RED CELL DISTRIBUTION WIDTH 13.7 % (11.5-14.5); WHITE BLOOD COUNT 18.9 K/uL (4.8-10.8)
[2018-11-26 20:12] LABS: INR 1.1; PROTHROMBIN TIME 12.2 Seconds (9.8-13.1)
[2018-11-26 20:15] LABS: PARTIAL THROMBOPLASTIN TIME 33.4 Seconds (25.6-37.1)
[2018-11-26 20:41] LABS: ALB/GLOB RATIO 1.3 (1.0-2.1); ALBUMIN 4.3 g/dL (3.5-5.0); ALT/SGPT 29 U/L (21-72); AST/SGOT 28 U/L (17-59); BLOOD UREA NITROGEN 13 mg/dl (9-20); CALCIUM 9.6 mg/dL (8.4-10.2); GFR NON-AFRICAN AMERICAN > 60
[2018-11-26 20:57] LABS: BANDS 2 % (0-2); EOSINOPHIL 1 % (0-7); LYMPHOCYTE 11 % (20-50); MONOCYTE 8 % (0-10); NEUTROPHIL 78 % (42-75); PLATELET ESTIMATE NORMAL (NORMAL); TOTAL CELLS COUNTED 100
--- NOTE | 2018-11-26 21:13 | ED PDOC ---
HPI: Seizure Time Seen by Provider: 11/26/18 19:24 Chief Complaint (Nursing): Seizure Chief Complaint (Provider): Seizure History Per: Family History/Exam Limitations: no limitations Recent Seizure Activity Began: Just Before Arrival Number Of Seizures: One Length Of Seizures (Duration): Minutes Quality Of Seizure: Generalized Associated Symptoms: denies: Bit Tongue, Incontinence Of Urine, Incontinence Of Stool, Injury As A Result Of Seizure Activity Additional Complaint(s): 53yo male, well known to provider and facility, with history of seizures, is brought to ER by for evaluation after a generalized tonic- clonic seizure while at home. states the patient had a low grade fever, Tmax of 99 today, and states this is usually indicative of a developing UTI; she states she called the patient's PMD Dr. Morris, who called in antibiotics for the UTI. Patient's had left to go pear picker the medication and upon returning, she noticed the patient had a generalized tonic clonic seizure. She called 911 and patient was given 4mg Ativan by paramedics; currently in ER patie nt is without any seizure, is speaking and able to respond to questions. denies any incontinence, tongue bite, or injuries during the seizure. She states she did not give the patient any medication fr the fever. PMD: Dr. Morris Neurologist: Dr. Manuel Mcdaniels Past Medical History Reviewed: Historical Data, Nursing Documentation, Vital Signs Vital Signs: Last Vital Signs Temp 100.5 F H 11/26/18 19:00 Pulse 130 H 11/26/18 19:00 Resp 26 H 11/26/18 19:00 BP Pulse Ox 98 11/26/18 19:00 Primary Care Provider: Leo Morris - Medical History PMH: Anemia, Anxiety, Arthritis (BACK), COPD, Dementia, Depression, Deep Vein Thrombosis, HTN, Hypercholesterolemia, Kidney Stones, Multiple Sclerosis, Peripheral Edema (B/L LE no longer swollen), Pneumonia, Pulmonary Embolism, Chronic Kidney Disease, Rheumatoid Arthritis, Seizures Denies: HIV - Surgical History Surgical History: No Surg Hx - Family History Family History: States: Unknown Family Hx - Immunization History Hx Tetanus Toxoid Vaccination: No Hx Influenza Vaccination: Yes Hx Pneumococcal Vaccination: Yes - Home Medications Home Medications: Ambulatory Orders Medication Instructions Recorded Baclofen [Lioresal] 20 mg PO QID 06/06/18 Dimethyl Fumarate [Tecfidera] 240 mg PO Q12 06/06/18 lamoTRIgine [Lamictal] 200 mg PO Q12 tab 06/11/18 fentaNYL 50 mcg/hr [Duragesic 1 patch TD Q3D #30 patch 06/21/18 Patch 50 mcg/hr] Levetiracetam 1,000 mg PO QID 10/28/18 QUEtiapine [Seroquel] 25 mg PO Q8 PRN 10/28/18 - Allergies Allergies/Adverse Reactions: Allergies Allergy/AdvReac Type Severity Reaction Status Date / Time cefazolin Allergy RASH, Verified 11/26/18 19:00 ITCHINESS Review of Systems ROS Statement: Except As Marked, All Systems Reviewed And Found Negative Constitutional: Positive for: Fever. Negative for: Chills ENT: Negative for: Other (tongue bite) Genitourinary Male: Negative for: Incontinence Neurological: Positive for: Seizures Physical Exam - Reviewed Nursing Documentation Reviewed: Yes Vital Signs Reviewed: Yes - Physical Exam Appears: Positive for: Non-toxic Head Exam: Positive for: ATRAUMATIC, NORMAL INSPECTION, NORMOCEPHALIC Skin: Positive for: Normal Color Eye Exam: Positive for: Normal appearance, EOMI, PERRL Neck: Positive for: Supple Cardiovascular/Chest: Positive for: Tachycardia Respiratory: Positive for: Normal Breath Sounds. Negative for: Respiratory Distress Gastrointestinal/Abdominal: Positive for: Normal Exam, Soft Back: Positive for: Normal Inspection Extremity: Positive for: Normal ROM. Negative for: Pedal Edema Neurological/Psych: Positive for: Awake, Normal Tone, Other (somnolent but arousable; answering questions appropriately and following commands appropriately) - Laboratory Results Result Diagrams: 11/26/18 19:30 11/26/18 19:30 Lab Results: PT 12.2 Seconds (9.8-13.1) 11/26/18 19:30 INR 1.1 11/26/18 19:30 APTT 33.4 Seconds (25.6-37.1) 11/26/18 19:30 Total Bilirubin 0.7 mg/dl (0.2-1.3) 11/26/18 19:30 AST 28 U/L (17-59) 11/26/18 19:30 ALT 29 U/L (21-72) 11/26/18 19:30 Alkaline Phosphatase 83 U/L (38-126) 11/26/18 19:30 Total Protein 7.5 G/DL (6.3-8.2) 11/26/18 19:30 Albumin 4.3 g/dL (3.5-5.0) 11/26/18 19:30 Globulin 3.2 gm/dL (2.2-3.9) 11/26/18 19:30 Albumin/Globulin Ratio 1.3 (1.0-2.1) 11/26/18 19:30 - ECG O2 Sat by Pulse Oximetry: 98 (RA) Pulse Ox Interpretation: Normal Medical Decision Making Medical Decision Making: Impression: 53yo with breakthrough seizures Low grade fever, patient with history of known seizure disorder Plan: -- Labs -- Urinalysis -- CT head w/o contrast -- IV Fluids -- Tylenol 975mg [place] Labs reviewed significant for elevated WBC with nl lactate level. Patient demonstrates tachycardia and c/w sepsis UA shows large RBC Will admit for further treatment; IV Azactam ordered and michele d/w Dr Morris Dx Seizure, MS, UTI, Sepsis Scribe Attestation: Documented by Tamica Amezcua acting as a scribe for Jorge L Marion MD. Provider Scribe Attestation: All medical record entries made by the Scribe were at my direction and personally dictated by me. I have reviewed the chart and agree that the record accurately reflects my personal performance of the history, physical exam, medical decision making, and the department course for this patient. I have also personally directed, reviewed, and agree with the discharge instructions and disposition. Time: 2353 CT HEAD RESULTS EXAM: CT Head Without IV contrast. CLINICAL HISTORY: SEIZURES TECHNIQUE: Axial computed tomography images of the head/brain without intravenous contrast. COMPARISON: Comparison is made to prior examination dated 10/23/2018. Also, the report was reviewed. FINDINGS: BRAIN: No acute intraparenchymal hemorrhage. No mass lesion. No CT evidence for acute territorial infarct. No midline shift or extra-axial collections. There is marked diffuse cerebral and cerebellar atrophy again noted. There are bilateral confluent periventricular and subcortical white matter hypolucencies compatible with severe chronic microvascular disease. VENTRICLES: There is compensatory ventricular dilatation again demonstrated. ORBITS: The orbits are unremarkable. SINUSES AND MASTOIDS: A 1.6 cm mucous retention cyst or polyp is seen in the posterior right maxillary sinus. The remaining paranasal sinuses and mastoid air cells are clear. BONES: No fracture. SOFT TISSUES: Unremarkable. IMPRESSION: 1. No acute intracranial abnormality. 2. Marked diffuse cerebral and cerebellar atrophy. 3. Severe chronic microvascular disease. 4. No significant interval change. Electronically signed on November 26, 2018 11:54:33 PM EDT by: Juan C Chavez M.D., M.B.A., Certified By [employer] Trained MRI and CT Specialist Scribe Attestation: Documented by Linsey Adams, acting as a scribe for Jorge L Marion MD. Provider Scribe Attestation: All medical record entries made by the Scribe were at my direction and personally dictated by me. I have reviewed the chart and agree that the record accurately reflects my personal performance of the history, physical exam, medical decision making, and the department course for this patient. I have also personally directed, reviewed, and agree with the discharge instructions and disposition. Disposition - Clinical Impression Clinical Impression: Seizure, Sepsis, UTI (urinary tract infection), Multiple sclerosis - Patient ED Disposition Is Patient to be Admitted: Yes - Disposition Disposition Time: 20:00 Condition: GUARDED - Pt Status Changed To: Hospital Disposition Of: Inpatient - Admit Certification Admit to Inpatient:: After my assessment, the patient will require hospitalization for at least two midnights. This is because of the severity of symptoms shown, intensity of services needed, and/or the medical risk in this patient being treated as an outpatient.
[2018-11-26] MEDS ORDERED: Aztreonam 1 GM in Sodium Chloride 0.9% 100 ML IVPB STA (21:55)
[2018-11-26 23:27] LABS: URINE CLARITY CLOUDY (Clear); URINE COLOR YELLOW (YELLOW)
[2018-11-26 23:28] LABS: URINE BILIRUBIN NEGATIVE (NEGATIVE); URINE BLOOD MODERATE (NEGATIVE); URINE GLUCOSE (UA) NEGATIVE (NEGATIVE); URINE PROTEIN 100 mg/dL (NEGATIVE)
[2018-11-26 23:29] LABS: URINE LEUKOCYTE ESTERASE NEGATIVE Leu/uL (Negative); URINE UROBILINOGEN 0.2 mg/dL (0.2-1.0)
[2018-11-26 23:31] LABS: SQUAMOUS EPITHIAL 1 /hpf (0-5)
--- NOTE | 2018-11-27 08:25 | CT ---
Date of service: 11/26/2018 PROCEDURE: CT HEAD WITHOUT CONTRAST. HISTORY: seizures COMPARISON: 10/23/2018 TECHNIQUE: Axial computed tomography images were obtained through the head/brain without intravenous contrast. Radiation dose: Total exam DLP = 1042.18 mGy-cm. This CT exam was performed using one or more of the following dose reduction techniques: Automated exposure control, adjustment of the mA and/or kV according to patient size, and/or use of iterative reconstruction technique. FINDINGS: HEMORRHAGE: No intracranial hemorrhage. BRAIN: No mass effect or edema. Similar pronounced generalized cerebral atrophy present. Similar periventricular and deep subcortical white matter hypodensities compatible chronic microvascular ischemic changes. Findings are similar. VENTRICLES: Dilated ventricle similar to prior study-likely commensurate with the advanced degree of cerebral atrophy which appears greater than that expected for patient's 53 years of age. CALVARIUM: Unremarkable. PARANASAL SINUSES: Similar inflammatory changes paranasal sinuses-right maxillary sinus likely retention cyst (and/or polyp). MASTOID AIR CELLS: Unremarkable as visualized. No inflammatory changes. OTHER FINDINGS: None. IMPRESSION: No interval intracranial hemorrhage or mass effect. Advanced cerebral atrophy. White matter changes predominating compatible with chronic microvascular disease-grossly similar. Similar paranasal sinus inflammatory changes-as above.
[2018-11-27] MEDS ORDERED: Aztreonam 1 GM in Sodium Chloride 0.9% 100 ML IVPB SCH (09:00)
--- NOTE | 2018-11-27 09:43 | RAD ---
Date of service: 11/26/2018 HISTORY: chest pain COMPARISON: 10/23/2018 TECHNIQUE: 1 view obtained. FINDINGS: LUNGS: No consolidation seen. PLEURA: No significant pleural effusion identified, no pneumothorax apparent. CARDIOVASCULAR: There is presence of aortic atherosclerotic calcification on x-ray. Cardiomegaly an similar. Overall thoracic aorta appears ectatic-similar. Mild concomitant pulmonary venous congestion possible. No change appreciated. OSSEOUS STRUCTURES: Bilateral shoulder arthrosis. Mild thorax spondylosis VISUALIZED UPPER ABDOMEN: Normal. OTHER FINDINGS: None. IMPRESSION: Cardiomegaly with probable mild pulmonary venous congestion-no interval change perceived.
--- NOTE | 2018-11-27 11:27 | CARD ---
APPROVED REPORT Date of service: 11/26/2018 EKG Measurement Heart [id number] <Conclusion> Sinus tachycardia Left anterior fascicular block Abnormal ECG
[2018-11-27 12:02] LABS: PROLACTIN 41.8 ng/mL (3.7-17.9)
--- NOTE | 2018-11-27 12:19 | CP.PCM.HP ---
History of Present Illness - History of Present Illness History of Present Illness: 53 yo male with past medical hx Dementia, Depression, Deep Vein Thrombosis, Kidney Stones, Multiple Sclerosis with severe neuro deficit paraplegia bed ridding since 2008, Peripheral Edema , Pneumonia, Pulmonary Embolism , Chronic Kidney Disease, Seizures, recurrent UTI and sepsis presented in ER with seizure. A UA possible UTI. Patient has hx of status epileptic and sepsis with recurrent UTI and respiratory failure with several intervention of mechanical ventilation At present confuse. Started on empiric iv antibx rx Present on Admission - Present on Admission Any Indicators Present on Admission: No Review of Systems - Constitutional Constitutional: As Per HPI - Cardiovascular Cardiovascular: As Per HPI - Respiratory Respiratory: As Per HPI - Gastrointestinal Gastrointestinal: As Per HPI - Genitourinary Genitourinary: As Per HPI - Musculoskeletal Musculoskeletal: As Per HPI - Neurological Neurological: As Per HPI - Psychiatric Psychiatric: As Per HPI Past Patient History - Infectious Disease Hx of Infectious Diseases: None - Tetanus Immunizations Tetanus Immunization: Unknown - Past Medical History & Family History Past Medical History?: Yes - Past Social History Smoking Status: Former Smoker - CARDIAC Hx Cardiac Disorders: Yes Hx Angina: No Hx Atrial Fibrillation: No Hx Cardia Arrhythmia: No Hx Circulatory Problems: No Hx Congestive Heart Failure: No Hx Heart Attack: No Hx Heart Murmur: No Hx Hypercholesterolemia: Yes Hx Hypertension: Yes Hx Hypotension: No Hx Internal Defibrillator: No Hx Mitral Valve Prolapse: No Hx Pacemaker: No Hx Peripheral Edema: Yes (B/L LE no longer swollen) Hx Peripheral Vascular Disease: No - PULMONARY Hx Respiratory Disorders: Yes Hx Asthma: No Hx Bronchitis: No Hx Chronic Obstructive Pulmonary Disease (COPD): Yes Hx Emphysema: No Hx Lung Cancer: No Hx Pneumonia: Yes Hx Pulmonary Embolism: Yes Hx Respiratory Aspiration: No Hx Respiratory Tract Infection: No Hx Sleep Apnea: No Hx Tuberculosis: No - NEUROLOGICAL Hx Neurological Disorder: Yes Hx Alzheimer's Disease: No HX Cerebrovascular Accident: No Hx Dementia: Yes Hx Dizziness: No Hx Meningitis: No Hx Migraine: No Hx Multiple Sclerosis: Yes Hx Paralysis: No Hx Parkinson's Disease: No Hx Seizures: Yes Hx Syncope: No Hx Transient Ischemic Attacks (TIA): No Hx Vertigo: No - HEENT Hx HEENT Problems: Yes (Poor vision, L eye) Hx Blind: No Hx Cataracts: No Hx Deafness: No Hx Difficulty Chewing: No Hx Epistaxis: No Hx Glaucoma: No Hx Macular Degeneration: No Hx Sinusitis: No - RENAL Hx Chronic Kidney Disease: No Hx Dialysis: No Hx Kidney Stones: Yes Hx Neurogenic Bladder: No Hx Pyelonephritis: No Hx Renal (Kidney) Cancer: No Hx Renal Failure: No - ENDOCRINE/METABOLIC Hx Endocrine Disorders: No Hx Adrenal Cancer: No Hx Diabetes Insipidus: No Hx Diabetes Mellitus Type 1: No Hx Diabetes Mellitus Type 2: No Hx Hyperthyroidism: No Hx Hypothyroidism: No Hx Systemic Lupus Erythematosus: No - HEMATOLOGICAL/ONCOLOGICAL Hx Blood Disorders: Yes Hx AIDS: No Hx Anemia: Yes Hx Blood Transfusions: No (doesn't know) Hx Blood Transfusion Reaction: No Hx Bruising: No Hx Cancer: No Hx Chemotherapy: No Hx Cirrhosis: No Hx Gum Bleeding: No Hx Hemophilia: No Hx Hepatitis A: No Hx Hepatitis B: No Hx Hepatitis C: No Hx Human Immunodeficiency Virus (HIV): No Hx Leukemia: No Hx Metastesis: No Hx Shingles: No Hx Sickle Cell Disease: No Hx Unexplained Bleeding: No Hx von Willebrand's Disease: No - INTEGUMENTARY Hx Dermatological Problems: No Hx Basil Cell: No Hx Do: No Hx Cellulitis: No Hx Eczema: No Hx Melanoma: No Hx Psoriasis: No Hx Squamous Cell: No - MUSCULOSKELETAL/RHEUMATOLOGICAL Hx Musculoskeletal Disorders: Yes Hx Arthritis: Yes (BACK) Hx Back Pain: Yes Hx Degenerative Joint Disease: No Hx Falls: No Hx Fractures: No Hx Gout: No Hx Herniated Disk: No Hx Myasthenia Gravis: No Hx Osteoarthritis: No Hx Osteomyelitis: No Hx Osteoporosis: No Hx Rhabdomyolysis: No Hx Rheumatoid Arthritis: Yes Hx Spinal Stenosis: No Hx Unsteady Gait: No - GASTROINTESTINAL Hx Gastrointestinal Disorders: No Hx Bowel Surgery: No Hx Clostridium Difficile: No Hx Colitis: No Hx Colostomy: No Hx Constipation: No Hx Crohn's Disease: No Hx Diarrhea: No Hx Diverticulitis: No Hx Esophageal Varices: No Hx Fatty Liver Disease: No Hx Gall Bladder Disease: No Hx Gastritis: No Hx Gastroesophageal Reflux: No Hx Hemorrhoids: No Hx Ileostomy: No Hx Irritable Bowel: No Hx Liver Failure: No Hx Nausea: No Hx Pancreatitis: No HX Swallowing Problems: No Hx Ulcer: No Hx Vomiting: No - GENITOURINARY/GYNECOLOGICAL Hx Genitourinary Disorders: Yes Hx Bladder Cancer: No Hx Bladder Stone: No Hx Hematuria: No Hx Incontinence: Yes Hx Prostate Cancer: No Hx Prostate Problems: No Hx Reproductive Disorders: No Hx Sexually Transmitted Disorders: No Hx Urinary Tract Infection: Yes (Recurrent) Other/Comment: 2wF to drainage bag intact - PSYCHIATRIC Hx Psychophysiologic Disorder: Yes Hx Anxiety: Yes Hx Bipolar Disorder: No Hx Depression: Yes Hx Emotional Abuse: No Hx Hallucinations: No Hx Panic Symptoms: Yes Hx Paranoia: No Hx Post Traumatic Stress Disorder: No Hx Psychosis: No Hx Physical Abuse: No Hx Schizophrenia: No Hx Sexual Abuse: No Hx Substance Use: No - SURGICAL HISTORY Hx Surgeries: Yes Hx Abdominal Aortic Aneurysm Repair: No Hx Amputation: No Hx Angiogram: No Hx Angioplasty: No Hx Appendectomy: No Hx Arteriovenous Shunt: No Hx Arthroscopy: No Hx Bile Duct Stent: No Hx Breast Biopsy: No Hx Cataract Extraction: No Hx Cardiac Catheterization: No Hx Carotid Endarterectomy: No Hx Section: No Hx Cholecystectomy: No Hx Coronary Artery Bypass Graft: No Hx Coronary Stent: No Hx Dilation and Curettage: No Hx Eye Surgery: No Hx Femoral-Popliteal Bypass Graft: No Hx Gastric Bypass Surgery: No Hx Herniorrhaphy: No Hx Hysterectomy: No Hx Joint Replacement: No Hx Kidney Transplant: No Hx Liver Transplant: No Hx Mastectomy: No Hx Musculoskeletal Surgery: No Hx Open Heart Surgery: No Hx Open Reduction Internal Fixation: No Hx Orthopedic Surgery: No Hx Parathyroidectomy: No Hx Penile Implant: No Hx Pulmonary Surgery: No Hx Splenectomy: No Hx Thyroidectomy: No Hx Tonsillectomy: No Hx Tubal Ligation: No Hx Valve Replacement: No Hx Vascular Surgery: No Hx Vascular Access Device: No Other/Comment: cysto with removal of stent 05/19/16- kidney stones - ANESTHESIA Hx Anesthesia: Yes Hx Anesthesia Reactions: No Hx Malignant Hyperthermia: No Has any member of the family had a problem w/ anesthesia?: No Meds Allergies/Adverse Reactions: Allergies Allergy/AdvReac Type Severity Reaction Status Date / Time cefazolin Allergy RASH, Verified 11/26/18 19:00 ITCHINESS Physical Exam - Constitutional Appears: Confused, Chronically Ill - Head Exam Head Exam: ATRAUMATIC, NORMAL INSPECTION, NORMOCEPHALIC - Eye Exam Eye Exam: Normal appearance - ENT Exam ENT Exam: Mucous Membranes Moist - Neck Exam Neck exam: Positive for: Full Rom - Respiratory Exam Respiratory Exam: Decreased Breath Sounds - Cardiovascular Exam Cardiovascular Exam: REGULAR RHYTHM, +S1, +S2 - GI/Abdominal Exam GI & Abdominal Exam: Normal Bowel Sounds - Extremities Exam Extremities exam: Positive for: normal inspection - Neurological Exam Neurological exam: Altered Additional comments: quadriplegia - Psychiatric Exam Psychiatric exam: Anxious - Skin Skin Exam: Normal Color Results - Vital Signs Recent Vital Signs: Last Vital Signs Temp 98.3 F 11/27/18 12:03 Pulse 114 H 11/27/18 12:03 Resp 18 11/27/18 12:03 BP 112/74 11/27/18 12:03 Pulse Ox 96 11/27/18 12:03 - Labs Result Diagrams: 11/26/18 19:30 11/26/18 19:30 Labs: Laboratory Results - last 24 hr 11/26/18 11/26/18 11/26/18 19:30 19:30 19:30 WBC 18.9 H D RBC 4.89 Hgb 15.0 Hct 44.8 MCV 91.7 MCH 30.7 MCHC 33.5 RDW 13.7 Plt Count 278 MPV 7.5 Neut % (Auto) 83.5 H Lymph % (Auto) 7.9 L Bland % (Auto) 7.6 Eos % (Auto) 0.8 Baso % (Auto) 0.2 Neut # (Auto) 15.8 H Lymph # (Auto) 1.5 Bland # (Auto) 1.4 H Eos # (Auto) 0.1 Baso # (Auto) 0.0 Neutrophils % (Manual) 78 H Band Neutrophils % 2 Lymphocytes % (Manual) 11 L Monocytes % (Manual) 8 Eosinophils % (Manual) 1 Platelet Estimate Normal PT 12.2 INR 1.1 APTT 33.4 Sodium 137 Potassium 4.1 Chloride 99 Carbon Dioxide 29 Anion Gap 13 BUN 13 Creatinine 0.5 L Est GFR ( Amer) > 60 Est GFR (Non-Af Amer) > 60 POC Glucose (mg/dL) Random Glucose 97 Lactic Acid Calcium 9.6 Magnesium 1.9 Total Bilirubin 0.7 AST 28 ALT 29 Alkaline Phosphatase 83 Total Protein 7.5 Albumin 4.3 Globulin 3.2 Albumin/Globulin Ratio 1.3 Prolactin 41.8 H Urine Color Urine Clarity Urine pH Ur Specific [place] Urine Protein Urine Glucose (UA) Urine Ketones Urine Blood Urine Nitrate Urine Bilirubin Urine Urobilinogen Ur Leukocyte Esterase Urine RBC (Auto) Ur Squamous Epith Cells Influenza Typ A,B (EIA) 11/26/18 11/26/18 11/26/18 19:30 20:20 20:22 WBC RBC Hgb Hct MCV MCH MCHC RDW Plt Count MPV Neut % (Auto) Lymph % (Auto) Bland % (Auto) Eos % (Auto) Baso % (Auto) Neut # (Auto) Lymph # (Auto) Bland # (Auto) Eos # (Auto) Baso # (Auto) Neutrophils % (Manual) Band Neutrophils % Lymphocytes % (Manual) Monocytes % (Manual) Eosinophils % (Manual) Platelet Estimate PT INR APTT Sodium Potassium Chloride Carbon Dioxide Anion Gap BUN Creatinine Est GFR ( Amer) Est GFR (Non-Af Amer) POC Glucose (mg/dL) 122 H Random Glucose Lactic Acid 1.7 Calcium Magnesium Total Bilirubin AST ALT Alkaline Phosphatase Total Protein Albumin Globulin Albumin/Globulin Ratio Prolactin Urine Color Urine Clarity Urine pH Ur Specific [place] Urine Protein Urine Glucose (UA) Urine Ketones Urine Blood Urine Nitrate Urine Bilirubin Urine Urobilinogen Ur Leukocyte Esterase Urine RBC (Auto) Ur Squamous Epith Cells Influenza Typ A,B (EIA) Negative for flu a/b 11/26/18 23:12 WBC RBC Hgb Hct MCV MCH MCHC RDW Plt Count MPV Neut % (Auto) Lymph % (Auto) Bland % (Auto) Eos % (Auto) Baso % (Auto) Neut # (Auto) Lymph # (Auto) Bland # (Auto) Eos # (Auto) Baso # (Auto) Neutrophils % (Manual) Band Neutrophils % Lymphocytes % (Manual) Monocytes % (Manual) Eosinophils % (Manual) Platelet Estimate PT INR APTT Sodium Potassium Chloride Carbon Dioxide Anion Gap BUN Creatinine Est GFR ( Amer) Est GFR (Non-Af Amer) POC Glucose (mg/dL) Random Glucose Lactic Acid Calcium Magnesium Total Bilirubin AST ALT Alkaline Phosphatase Total Protein Albumin Globulin Albumin/Globulin Ratio Prolactin Urine Color Yellow Urine Clarity Cloudy Urine pH 5.0 Ur Specific [place] 1.029 Urine Protein 100 Urine Glucose (UA) Negative Urine Ketones Trace H Urine Blood Moderate Urine Nitrate Negative Urine Bilirubin Negative Urine Urobilinogen 0.2 Ur Leukocyte Esterase Negative Urine RBC (Auto) 248 H Ur Squamous Epith Cells 1 Influenza Typ A,B (EIA) Assessment & Plan (1) Delirium due to general medical condition Status: Acute (2) Multiple sclerosis exacerbation Status: Chronic (3) UTI (urinary tract infection) Status: Acute (4) Seizure Status: Acute Priority: Low
[2018-11-27] MEDS: Enoxaparin 40 mg Syringe SC SCH (13:53)
--- NOTE | 2018-11-27 17:45 | CP.PCM.CON ---
History of Present Illness - History of Present Illness History of Present Illness: 53 yo male presented in ER with seizures and referred for ID eval of poaaible UTI/ sepsis Referred for ID eval for antibiotic management PMH Dementia, Depression, Deep Vein Thrombosis, Kidney Stones, Multiple Sclerosis with severe neuro deficit paraplegia bed ridding since 2008, Peripheral Edema , Pneumonia, Pulmonary Embolism , Chronic Kidney Disease, Seizures, recurrent UTI and sepsis Social lives with who is primary care attendant, denies smoking, alcohol Allergies Cefazolin Meds reviewed Review of Systems - Review of Systems All systems: reviewed and no additional remarkable complaints except - Constitutional Constitutional: Anorexia - EENT Eyes: As Per HPI Ears: absent: As Per HPI, Decreased Hearing, Ear Discharge, Ear Pain, Tinnitus, Abnormal Hearing, Disequilibrium, Dizziness, Other Nose/Mouth/Throat: absent: As Per HPI, Epistaxis, Nasal Congestion, Nasal Discharge, Nasal Obstruction, Nasal Trauma, Nose Pain, Post Nasal Drip, Sinus Pain, Sinus Pressure, Bleeding Gums, Change in Voice, Dental Pain, Dry Mouth, Dysphagia, Halitosis, Hoarsness, Lip Swelling, Mouth Lesions, Mouth Pain, Odynophagia, Sore Throat, Throat Swelling, Tongue Swelling, Facial Pain, Neck Pain, Neck Mass, Other - Cardiovascular Cardiovascular: absent: As Per HPI, Acrocyanosis, Chest Pain, Chest Pain at Rest, Chest Pain with Activity, Claudication, Diaphoresis, Dyspnea, Dyspnea on Exertion, Edema, Irregular Heart Rhythm, Pain Radiating to Arm/Neck/Jaw, Leg Edema, Leg Ulcers, Lightheadedness, Orthopnea, Palpitations, Paroxysmal Nocturnal Dyspnea, Pedal Edema, Radiating Pain, Rapid Heart Rate, Slow Heart Rate, Syncope, Other - Respiratory Respiratory: absent: As Per HPI, Cough, Dyspnea, Hemoptysis, Dyspnea on Exertion, Wheezing, Snoring, Stridor, Pain on Inspiration, Chest Congestion, Excessive Mucous Production, Change in Mucous Color, Pain with Coughing, Other - Gastrointestinal Gastrointestinal: absent: As Per HPI, Abdominal Pain, Belching, Bloating, Change in Bowel Habits, Change in Stool Character, Coffee Ground Emesis, Constipation, Cramping, Diarrhea, Dyspepsia, Dysphagia, Early Satiety, Excessive Flatus, Fecal Incontinence, Heartburn, Hematemesis, Hematochezia, Loose Stools, Melena, Nausea, Odynophagia, Temesmus, Vomiting, Other - Genitourinary Genitourinary: As Per HPI - Musculoskeletal Musculoskeletal: As Per HPI - Integumentary Integumentary: absent: As Per HPI, Acne, Alopecia, Bleeding Lesions, Change in Hair, Change in Nails, Change in Pigmentation, Changing Lesions, Dry Skin, Erythema, Furuncle, Hirsutism, Lesions, New Lesions, Non-Healing Lesions, Photosensitivity, Pruritus, Rash, Skin Pain, Skin Ulcer, Sores, Striae, Swelling, Unusual Bruising, Wounds, Jaundice, Other - Neurological Neurological: As Per HPI - Psychiatric Psychiatric: absent: As Per HPI, Abnormal Sleep Pattern, Anhedonia, Anxiety, Auditory Hallucinations, Behavioral Changes, Change in Appetite, Change in Libido, Confusion, Depression, Difficulty Concentrating, Hallucinations, Homicidal Ideation, Hopelessness, Irritability, Memory Loss, Mood Swings, Panic Attacks, Paranoia, Suicidal Ideation, Visual Hallucinations, Tactile Hallucinations, Other - Endocrine Endocrine: absent: As Per HPI, Change in Body Appearance, Change in Libido, Cold Intolorance, Deepening of Voice, Excessive Sweating, Fatigue, Flushing, Heat Intolorance, Increase in Ring/Shoe/Hat Size, Palpitations, Polydipsia, Polyphagia, Polyuria, Other - Hematologic/Lymphatic Hematologic: absent: As Per HPI, Easy Bleeding, Easy Bruising, Lymphadenopathy, Other Past Patient History - Infectious Disease Hx of Infectious Diseases: None - Tetanus Immunizations Tetanus Immunization: Unknown - Past Medical History & Family History Past Medical History?: Yes - Past Social History Smoking Status: Former Smoker - CARDIAC Hx Cardiac Disorders: Yes Hx Angina: No Hx Atrial Fibrillation: No Hx Cardia Arrhythmia: No Hx Circulatory Problems: No Hx Congestive Heart Failure: No Hx Heart Attack: No Hx Heart Murmur: No Hx Hypercholesterolemia: Yes Hx Hypertension: Yes Hx Hypotension: No Hx Internal Defibrillator: No Hx Mitral Valve Prolapse: No Hx Pacemaker: No Hx Peripheral Edema: Yes (B/L LE no longer swollen) Hx Peripheral Vascular Disease: No - PULMONARY Hx Respiratory Disorders: Yes Hx Asthma: No Hx Bronchitis: No Hx Chronic Obstructive Pulmonary Disease (COPD): Yes Hx Emphysema: No Hx Lung Cancer: No Hx Pneumonia: Yes Hx Pulmonary Embolism: Yes Hx Respiratory Aspiration: No Hx Respiratory Tract Infection: No Hx Sleep Apnea: No Hx Tuberculosis: No - NEUROLOGICAL Hx Neurological Disorder: Yes Hx Alzheimer's Disease: No HX Cerebrovascular Accident: No Hx Dementia: Yes Hx Dizziness: No Hx Meningitis: No Hx Migraine: No Hx Multiple Sclerosis: Yes Hx Paralysis: No Hx Parkinson's Disease: No Hx Seizures: Yes Hx Syncope: No Hx Transient Ischemic Attacks (TIA): No Hx Vertigo: No - HEENT Hx HEENT Problems: Yes (Poor vision, L eye) Hx Blind: No Hx Cataracts: No Hx Deafness: No Hx Difficulty Chewing: No Hx Epistaxis: No Hx Glaucoma: No Hx Macular Degeneration: No Hx Sinusitis: No - RENAL Hx Chronic Kidney Disease: No Hx Dialysis: No Hx Kidney Stones: Yes Hx Neurogenic Bladder: No Hx Pyelonephritis: No Hx Renal (Kidney) Cancer: No Hx Renal Failure: No - ENDOCRINE/METABOLIC Hx Endocrine Disorders: No Hx Adrenal Cancer: No Hx Diabetes Insipidus: No Hx Diabetes Mellitus Type 1: No Hx Diabetes Mellitus Type 2: No Hx Hyperthyroidism: No Hx Hypothyroidism: No Hx Systemic Lupus Erythematosus: No - HEMATOLOGICAL/ONCOLOGICAL Hx Blood Disorders: Yes Hx AIDS: No Hx Anemia: Yes Hx Blood Transfusions: No (doesn't know) Hx Blood Transfusion Reaction: No Hx Bruising: No Hx Cancer: No Hx Chemotherapy: No Hx Cirrhosis: No Hx Gum Bleeding: No Hx Hemophilia: No Hx Hepatitis A: No Hx Hepatitis B: No Hx Hepatitis C: No Hx Human Immunodeficiency Virus (HIV): No Hx Leukemia: No Hx Metastesis: No Hx Shingles: No Hx Sickle Cell Disease: No Hx Unexplained Bleeding: No Hx von Willebrand's Disease: No - INTEGUMENTARY Hx Dermatological Problems: No Hx Basil Cell: No Hx Do: No Hx Cellulitis: No Hx Eczema: No Hx Melanoma: No Hx Psoriasis: No Hx Squamous Cell: No - MUSCULOSKELETAL/RHEUMATOLOGICAL Hx Musculoskeletal Disorders: Yes Hx Arthritis: Yes (BACK) Hx Back Pain: Yes Hx Degenerative Joint Disease: No Hx Falls: No Hx Fractures: No Hx Gout: No Hx Herniated Disk: No Hx Myasthenia Gravis: No Hx Osteoarthritis: No Hx Osteomyelitis: No Hx Osteoporosis: No Hx Rhabdomyolysis: No Hx Rheumatoid Arthritis: Yes Hx Spinal Stenosis: No Hx Unsteady Gait: No - GASTROINTESTINAL Hx Gastrointestinal Disorders: No Hx Bowel Surgery: No Hx Clostridium Difficile: No Hx Colitis: No Hx Colostomy: No Hx Constipation: No Hx Crohn's Disease: No Hx Diarrhea: No Hx Diverticulitis: No Hx Esophageal Varices: No Hx Fatty Liver Disease: No Hx Gall Bladder Disease: No Hx Gastritis: No Hx Gastroesophageal Reflux: No Hx Hemorrhoids: No Hx Ileostomy: No Hx Irritable Bowel: No Hx Liver Failure: No Hx Nausea: No Hx Pancreatitis: No HX Swallowing Problems: No Hx Ulcer: No Hx Vomiting: No - GENITOURINARY/GYNECOLOGICAL Hx Genitourinary Disorders: Yes Hx Bladder Cancer: No Hx Bladder Stone: No Hx Hematuria: No Hx Incontinence: Yes Hx Prostate Cancer: No Hx Prostate Problems: No Hx Reproductive Disorders: No Hx Sexually Transmitted Disorders: No Hx Urinary Tract Infection: Yes (Recurrent) Other/Comment: 2wF to drainage bag intact - PSYCHIATRIC Hx Psychophysiologic Disorder: Yes Hx Anxiety: Yes Hx Bipolar Disorder: No Hx Depression: Yes Hx Emotional Abuse: No Hx Hallucinations: No Hx Panic Symptoms: Yes Hx Paranoia: No Hx Post Traumatic Stress Disorder: No Hx Psychosis: No Hx Physical Abuse: No Hx Schizophrenia: No Hx Sexual Abuse: No Hx Substance Use: No - SURGICAL HISTORY Hx Surgeries: Yes Hx Abdominal Aortic Aneurysm Repair: No Hx Amputation: No Hx Angiogram: No Hx Angioplasty: No Hx Appendectomy: No Hx Arteriovenous Shunt: No Hx Arthroscopy: No Hx Bile Duct Stent: No Hx Breast Biopsy: No Hx Cataract Extraction: No Hx Cardiac Catheterization: No Hx Carotid Endarterectomy: No Hx Section: No Hx Cholecystectomy: No Hx Coronary Artery Bypass Graft: No Hx Coronary Stent: No Hx Dilation and Curettage: No Hx Eye Surgery: No Hx Femoral-Popliteal Bypass Graft: No Hx Gastric Bypass Surgery: No Hx Herniorrhaphy: No Hx Hysterectomy: No Hx Joint Replacement: No Hx Kidney Transplant: No Hx Liver Transplant: No Hx Mastectomy: No Hx Musculoskeletal Surgery: No Hx Open Heart Surgery: No Hx Open Reduction Internal Fixation: No Hx Orthopedic Surgery: No Hx Parathyroidectomy: No Hx Penile Implant: No Hx Pulmonary Surgery: No Hx Splenectomy: No Hx Thyroidectomy: No Hx Tonsillectomy: No Hx Tubal Ligation: No Hx Valve Replacement: No Hx Vascular Surgery: No Hx Vascular Access Device: No Other/Comment: cysto with removal of stent 05/19/16- kidney stones - ANESTHESIA Hx Anesthesia: Yes Hx Anesthesia Reactions: No Hx Malignant Hyperthermia: No Has any member of the family had a problem w/ anesthesia?: No Meds Allergies/Adverse Reactions: Allergies Allergy/AdvReac Type Severity Reaction Status Date / Time cefazolin Allergy RASH, Verified 11/26/18 19:00 ITCHINESS - Medications Medications: Current Medications Baclofen (Lioresal) 20 mg PO QID [facility] Last Admin: 11/27/18 16:25 Dose: 20 mg Enoxaparin Sodium (Lovenox) 40 mg SC DAILY [facility]; Protocol Last Admin: 11/27/18 13:53 Dose: 40 mg Fentanyl (Duragesic) 1 patch TD Q3D [facility]; Protocol Home Med (Dimethyl Fumarate [Tecfidera]) 240 mg PO Q12 [facility] Last Admin: 11/27/18 13:37 Dose: 240 mg Aztreonam 1 gm/ Sodium (Chloride) 100 mls @ 100 mls/hr IVPB Q12 [facility]; Protocol Last Admin: 11/27/18 09:44 Dose: 100 mls/hr Lamotrigine (Lamictal) 200 mg PO Q12 [facility] Last Admin: 11/27/18 09:42 Dose: 200 mg Levetiracetam (Keppra) 1,000 mg PO QID [facility] Last Admin: 11/27/18 16:24 Dose: 1,000 mg Quetiapine Fumarate (Seroquel) 25 mg PO Q8 PRN PRN Reason: Agitation Last Admin: 11/27/18 09:43 Dose: 25 mg Physical Exam - Constitutional Appears: Non-toxic, No Acute Distress, Confused, Chronically Ill - Head Exam Head Exam: ATRAUMATIC, NORMAL INSPECTION, NORMOCEPHALIC - Eye Exam Eye Exam: EOMI, Normal appearance, PERRL Pupil Exam: NORMAL ACCOMODATION, PERRL - ENT Exam ENT Exam: Mucous Membranes Moist, Normal Exam - Neck Exam Neck exam: Positive for: Normal Inspection - Respiratory Exam Respiratory Exam: Clear to Auscultation Bilateral, NORMAL BREATHING PATTERN - Cardiovascular Exam Cardiovascular Exam: REGULAR RHYTHM - GI/Abdominal Exam GI & Abdominal Exam: Normal Bowel Sounds, Soft. absent: Tenderness - Rectal Exam Rectal Exam: Deferred - Exam Exam: NORMAL INSPECTION - Extremities Exam Extremities exam: Positive for: normal inspection - Back Exam Back exam: NORMAL INSPECTION - Neurological Exam Neurological exam: Alert, Altered, CN II-XII Intact, Motor Sensory Deficit Additional comments: weakness bilaterally both lower extremities 1/5 upper extremities 3/5 - Psychiatric Exam Psychiatric exam: Normal Affect, Normal Mood - Skin Skin Exam: Dry, Intact, Normal Color Results - Vital Signs Recent Vital Signs: Last Vital Signs Temp 98.4 F 11/27/18 16:01 Pulse 121 H 11/27/18 16:01 Resp 20 11/27/18 16:01 BP 102/74 11/27/18 16:01 Pulse Ox 96 11/27/18 16:01 - Labs Result Diagrams: 11/26/18 19:30 11/26/18 19:30 Labs: Laboratory Results - last 24 hr 11/26/18 11/26/18 11/26/18 19:30 19:30 19:30 WBC 18.9 H D RBC 4.89 Hgb 15.0 Hct 44.8 MCV 91.7 MCH 30.7 MCHC 33.5 RDW 13.7 Plt Count 278 MPV 7.5 Neut % (Auto) 83.5 H Lymph % (Auto) 7.9 L [place] % (Auto) 7.6 Eos % (Auto) 0.8 Baso % (Auto) 0.2 Neut # (Auto) 15.8 H Lymph # (Auto) 1.5 [place] # (Auto) 1.4 H Eos # (Auto) 0.1 Baso # (Auto) 0.0 Neutrophils % (Manual) 78 H Band Neutrophils % 2 Lymphocytes % (Manual) 11 L Monocytes % (Manual) 8 Eosinophils % (Manual) 1 Platelet Estimate Normal PT 12.2 INR 1.1 APTT 33.4 Sodium 137 Potassium 4.1 Chloride 99 Carbon Dioxide 29 Anion Gap 13 BUN 13 Creatinine 0.5 L Est GFR ( Amer) > 60 Est GFR (Non-Af Amer) > 60 POC Glucose (mg/dL) Random Glucose 97 Lactic Acid Calcium 9.6 Magnesium 1.9 Total Bilirubin 0.7 AST 28 ALT 29 Alkaline Phosphatase 83 Total Protein 7.5 Albumin 4.3 Globulin 3.2 Albumin/Globulin Ratio 1.3 Prolactin 41.8 H Urine Color Urine Clarity Urine pH Ur Specific [place] Urine Protein Urine Glucose (UA) Urine Ketones Urine Blood Urine Nitrate Urine Bilirubin Urine Urobilinogen Ur Leukocyte Esterase Urine RBC (Auto) Ur Squamous Epith Cells Influenza Typ A,B (EIA) 11/26/18 11/26/18 11/26/18 19:30 20:20 20:22 WBC RBC Hgb Hct MCV MCH MCHC RDW Plt Count MPV Neut % (Auto) Lymph % (Auto) [place] % (Auto) Eos % (Auto) Baso % (Auto) Neut # (Auto) Lymph # (Auto) [place] # (Auto) Eos # (Auto) Baso # (Auto) Neutrophils % (Manual) Band Neutrophils % Lymphocytes % (Manual) Monocytes % (Manual) Eosinophils % (Manual) Platelet Estimate PT INR APTT Sodium Potassium Chloride Carbon Dioxide Anion Gap BUN Creatinine Est GFR ( Amer) Est GFR (Non-Af Amer) POC Glucose (mg/dL) 122 H Random Glucose Lactic Acid 1.7 Calcium Magnesium Total Bilirubin AST ALT Alkaline Phosphatase Total Protein Albumin Globulin Albumin/Globulin Ratio Prolactin Urine Color Urine Clarity Urine pH Ur Specific [place] Urine Protein Urine Glucose (UA) Urine Ketones Urine Blood Urine Nitrate Urine Bilirubin Urine Urobilinogen Ur Leukocyte Esterase Urine RBC (Auto) Ur Squamous Epith Cells Influenza Typ A,B (EIA) Negative for flu a/b 11/26/18 23:12 WBC RBC Hgb Hct MCV MCH MCHC RDW Plt Count MPV Neut % (Auto) Lymph % (Auto) [place] % (Auto) Eos % (Auto) Baso % (Auto) Neut # (Auto) Lymph # (Auto) [place] # (Auto) Eos # (Auto) Baso # (Auto) Neutrophils % (Manual) Band Neutrophils % Lymphocytes % (Manual) Monocytes % (Manual) Eosinophils % (Manual) Platelet Estimate PT INR APTT Sodium Potassium Chloride Carbon Dioxide Anion Gap BUN Creatinine Est GFR ( Amer) Est GFR (Non-Af Amer) POC Glucose (mg/dL) Random Glucose Lactic Acid Calcium Magnesium Total Bilirubin AST ALT Alkaline Phosphatase Total Protein Albumin Globulin Albumin/Globulin Ratio Prolactin Urine Color Yellow Urine Clarity Cloudy Urine pH 5.0 Ur Specific [place] 1.029 Urine Protein 100 Urine Glucose (UA) Negative Urine Ketones Trace H Urine Blood Moderate Urine Nitrate Negative Urine Bilirubin Negative Urine Urobilinogen 0.2 Ur Leukocyte Esterase Negative Urine RBC (Auto) 248 H Ur Squamous Epith Cells 1 Influenza Typ A,B (EIA) Assessment & Plan - Assessment and Plan (Free Text) Assessment: leukocytosis s/p seizure r/o UTI r/o leukemoid retion await cultures'cont IV antibiotics
[2018-11-27] MEDS: Aztreonam 1 GM in Sodium Chloride 0.9% 100 ML IVPB SCH (17:59)
[2018-11-28] MEDS: Aztreonam 1 GM in Sodium Chloride 0.9% 100 ML IVPB SCH ×4 (00:32→16:49)
[2018-11-28 06:05] LABS: BASO # 0.1 K/uL (0.0-0.2); BASO % 0.5 % (0.0-2.0); EOS # 0.5 K/uL (0.0-0.7); EOS % 4.9 % (0.0-4.0); HEMOGLOBIN 13.6 g/dL (12.0-18.0); LYMPH # 2.8 K/uL (1.0-4.3); LYMPH % 25.2 % (20.0-40.0); MEAN CELL VOLUME 92.7 fl (80.0-94.0); MEAN CORPUSCULAR HEMOGLOBIN 30.6 pg (27.0-31.0); MEAN CORPUSCULAR HGB CONC 33.1 g/dL (33.0-37.0); MEAN PLATELET VOLUME 7.5 fl (7.2-11.7); MONO # 1.3 K/uL (0.0-0.8); MONO % 11.7 % (0.0-10.0); NEUT # 6.4 K/uL (1.8-7.0); NEUT % 57.7 % (50.0-75.0); RBC 4.44 Mil/uL (4.40-5.90); RED CELL DISTRIBUTION WIDTH 14.1 % (11.5-14.5); WHITE BLOOD COUNT 11.2 K/uL (4.8-10.8)
[2018-11-28] MEDS: Enoxaparin 40 mg Syringe SC SCH ×2 (09:29→09:33)
--- NOTE | 2018-11-28 12:12 | CP.PCM.PN ---
Subjective - Date & Time of Evaluation Date of Evaluation: 11/28/18 Time of Evaluation: 12:14 - Subjective Subjective: Patient confuse, in delirium with aggressive behaviour. Refusing rx. Will follow with psychiatry consult. condition discussed with the Carlotta. Placed on 1:1. Objective - Vital Signs/Intake and Output Vital Signs (last 24 hours): Temp Pulse Resp BP Pulse Ox 97.7 F 84 18 100/62 97 11/28/18 08:00 11/28/18 08:00 11/28/18 08:00 11/28/18 08:00 11/28/18 08:00 - Medications Medications: Current Medications Baclofen (Lioresal) 20 mg PO QID [facility] Last Admin: 11/28/18 09:29 Dose: 20 mg Enoxaparin Sodium (Lovenox) 40 mg SC DAILY [facility]; Protocol Last Admin: 11/28/18 09:33 Dose: Not Given Fentanyl (Duragesic) 1 patch TD Q3D [facility]; Protocol Home Med (Dimethyl Fumarate [Tecfidera]) 240 mg PO Q12 [facility] Last Admin: 11/28/18 09:27 Dose: 240 mg Aztreonam 1 gm/ Sodium (Chloride) 100 mls @ 100 mls/hr IVPB Q8 [facility]; Protocol Last Admin: 11/28/18 09:33 Dose: Not Given Lamotrigine (Lamictal) 200 mg PO Q12 [facility] Last Admin: 11/28/18 09:28 Dose: 200 mg Levetiracetam (Keppra) 1,000 mg PO QID [facility] Last Admin: 11/28/18 09:28 Dose: 1,000 mg Lorazepam (Ativan) 1 mg PO Q8 PRN PRN Reason: Agitation Quetiapine Fumarate (Seroquel) 25 mg PO Q8 PRN PRN Reason: Agitation Last Admin: 11/27/18 09:43 Dose: 25 mg - Labs Labs: 11/28/18 05:35 11/26/18 19:30 PT 12.2 Seconds (9.8-13.1) 11/26/18 19:30 INR 1.1 11/26/18 19:30 APTT 33.4 Seconds (25.6-37.1) 11/26/18 19:30 - Constitutional Appears: Agitated, Confused, Chronically Ill - Head Exam Head Exam: ATRAUMATIC, NORMAL INSPECTION, NORMOCEPHALIC - Eye Exam Eye Exam: Normal appearance - ENT Exam ENT Exam: Mucous Membranes Moist - Neck Exam Neck Exam: Full ROM - Respiratory Exam Respiratory Exam: Decreased Breath Sounds - Cardiovascular Exam Cardiovascular Exam: REGULAR RHYTHM, +S1, +S2 - GI/Abdominal Exam GI & Abdominal Exam: Normal Bowel Sounds - Extremities Exam Extremities Exam: Normal Inspection - Neurological Exam Neurological Exam: Altered - Psychiatric Exam Psychiatric exam: Agitated, Anxious Assessment and Plan (1) Delirium due to general medical condition Status: Acute (2) Multiple sclerosis exacerbation Status: Chronic (3) UTI (urinary tract infection) Status: Acute (4) Seizure Status: Acute (5) Delirium due to another medical condition Status: Acute
--- NOTE | 2018-11-28 22:37 | CP.PCM.PN ---
Subjective - Date & Time of Evaluation Date of Evaluation: 11/28/18 Time of Evaluation: 08:00 - Subjective Subjective: awake alert confused nad Objective - Vital Signs/Intake and Output Vital Signs (last 24 hours): Temp Pulse Resp BP Pulse Ox 98.4 F 103 H 19 115/68 97 11/28/18 19:43 11/28/18 19:43 11/28/18 19:43 11/28/18 19:43 11/28/18 19:43 - Medications Medications: Current Medications Baclofen (Lioresal) 20 mg PO QID [facility] Last Admin: 11/28/18 22:00 Dose: 20 mg Enoxaparin Sodium (Lovenox) 40 mg SC DAILY [facility]; Protocol Last Admin: 11/28/18 09:33 Dose: Not Given Fentanyl (Duragesic) 1 patch TD Q3D [facility]; Protocol Home Med (Dimethyl Fumarate [Tecfidera]) 240 mg PO Q12 [facility] Last Admin: 11/28/18 22:01 Dose: 240 mg Aztreonam 1 gm/ Sodium (Chloride) 100 mls @ 100 mls/hr IVPB Q8 [facility]; Protocol Last Admin: 11/28/18 16:49 Dose: Not Given Lamotrigine (Lamictal) 200 mg PO Q12 [facility] Last Admin: 11/28/18 22:01 Dose: 200 mg Levetiracetam (Keppra) 1,000 mg PO QID [facility] Last Admin: 11/28/18 22:01 Dose: 1,000 mg Lorazepam (Ativan) 1 mg PO Q8 PRN PRN Reason: Agitation Quetiapine Fumarate (Seroquel) 25 mg PO Q8 PRN PRN Reason: Agitation Last Admin: 11/27/18 09:43 Dose: 25 mg - Labs Labs: 11/28/18 05:35 11/26/18 19:30 PT 12.2 Seconds (9.8-13.1) 11/26/18 19:30 INR 1.1 11/26/18 19:30 APTT 33.4 Seconds (25.6-37.1) 11/26/18 19:30 - Constitutional Appears: Non-toxic, No Acute Distress, Chronically Ill - Head Exam Head Exam: ATRAUMATIC, NORMAL INSPECTION, NORMOCEPHALIC - Eye Exam Eye Exam: EOMI, Normal appearance, PERRL Pupil Exam: NORMAL ACCOMODATION, PERRL - ENT Exam ENT Exam: Mucous Membranes Moist, Normal Exam - Neck Exam Neck Exam: Full ROM, Normal Inspection. absent: Lymphadenopathy - Respiratory Exam Respiratory Exam: Clear to Ausculation Bilateral, NORMAL BREATHING PATTERN - Cardiovascular Exam Cardiovascular Exam: REGULAR RHYTHM, +S1, +S2. absent: Murmur - GI/Abdominal Exam GI & Abdominal Exam: Soft, Normal Bowel Sounds. absent: Tenderness - Rectal Exam Rectal Exam: Deferred - Exam Exam: NORMAL INSPECTION - Extremities Exam Extremities Exam: Full ROM, Normal Capillary Refill, Normal Inspection. absent: Joint Swelling, Pedal Edema - Back Exam Back Exam: NORMAL INSPECTION - Neurological Exam Neurological Exam: Alert, Altered, Awake, CN II-XII Intact - Psychiatric Exam Psychiatric exam: Normal Affect, Normal Mood - Skin Skin Exam: Dry, Intact, Normal Color, Warm Assessment and Plan (1) Delirium due to another medical condition Status: Acute (2) Seizure Status: Acute - Assessment and Plan (Free Text) Assessment: ciultures so far negative IV antibiotics in progress
[2018-11-29] MEDS: Aztreonam 1 GM in Sodium Chloride 0.9% 100 ML IVPB SCH ×3 (01:41→17:57)
[2018-11-29] MEDS ORDERED: Lidocaine Hydrochloride 5 ML INJ ONE (09:38)
--- NOTE | 2018-11-29 09:55 | PCM.SURG1 ---
Surgeon's Initial Post Op Note - Surgeon's Notes Surgeon: Hany Spring MD Healthcare Educator: NONE Type of Anesthesia: Local Pre-Operative Diagnosis: Infection Operative Findings: US showed patent basilic vein. Post-Operative Diagnosis: Infection Operation Performed: Single lumen picc placement, 39 cm, via right basilic vein. Tip is in the SVC. Specimen/Specimens Removed: NONE Estimated Blood Loss: EBL {In ML}: 2 Blood Products Given: N/A Drains Used: No Drains Post-Op Condition: Fair Date of Surgery/Procedure: 11/29/18 Time of Surgery/Procedure: 09:54
[2018-11-29] MEDS: Enoxaparin 40 mg Syringe SC SCH (12:06)
[2018-11-29] MEDS: Oxycodone/Acetaminophen 5/325 mg Tab PO PRN ×2 (12:17→22:53)
--- NOTE | 2018-11-29 12:23 | VASCULAR ---
PROCEDURE: Date of procedure: 11/29/2018 Procedure: 1. Placement of a right arm PICC with ultrasound and fluoroscopic guidance, CPT 75151 2. PICC tip confirmation with spot radiograph and is in the superior vena cava Medications: 1 percent lidocaine Total Fluoro time: 1.8 Seconds Radiation: 0.23 MGy EBL: 2 cc HISTORY: Infection requiring long-term IV antibiotics TECHNIQUE: Following informed consent and procedure time-out, the patient was placed supine on the interventional table and the right arm prepped and draped in the usual sterile fashion. Ultrasound showed a patent and compressible right basilic vein. After the skin was anesthetized with lidocaine, the basilic vein was accessed with micro micropuncture technique using ultrasound guidance. A guidewire was then advanced under fluoroscopic guidance into the superior vena cava. An image documenting ultrasound guidance for vascular access was permanently saved. The length of the single-lumen 4 [place] PICC was trimmed to 39 centimeters and advanced through a peel-away sheath. The PICC was position with tip of PICC confirm a spot radiograph the superior vena cava. The PICC was secured to the patient's skin. The PICC was flushed. A biopatch and sterile dressing was applied. IMPRESSION: Placement of a single-lumen 4 [place] PICC trimmed to 39 centimeters via right basilic vein. The tip of the PICC is confirmed with spot radiograph and is in the superior vena cava.
--- NOTE | 2018-11-29 12:48 | CP.PCM.CON ---
History of Present Illness - History of Present Illness History of Present Illness: consult requested for episodes of agitation on evaluation pt is sedated /history obtained through chart review and from staff pt is a 53 yo male with past medical hx Dementia, Depression, Deep Vein Thrombosis, Kidney Stones, Multiple Sclerosis with severe neuro deficit paraplegia bed ridding since 2008, Peripheral Edema , Pneumonia, Pulmonary Embolism , Chronic Kidney Disease, Seizures, recurrent UTI and sepsis presented in ER with seizure. A UA possible UTI. as per staff pt has been confused with episodes of agitation and being combative with care Past Patient History - Infectious Disease Hx of Infectious Diseases: None - Tetanus Immunizations Tetanus Immunization: Unknown - Past Medical History & Family History Past Medical History?: Yes - Past Social History Smoking Status: Former Smoker - CARDIAC Hx Hypercholesterolemia: Yes Hx Hypertension: Yes Hx Peripheral Edema: Yes (B/L LE no longer swollen) - PULMONARY Hx Chronic Obstructive Pulmonary Disease (COPD): Yes Hx Pneumonia: Yes Hx Pulmonary Embolism: Yes - NEUROLOGICAL Hx Dementia: Yes Hx Multiple Sclerosis: Yes Hx Seizures: Yes - HEENT Hx HEENT Problems: Yes (Poor vision, L eye) Hx Blind: No Hx Cataracts: No Hx Deafness: No Hx Difficulty Chewing: No Hx Epistaxis: No Hx Glaucoma: No Hx Macular Degeneration: No Hx Sinusitis: No - RENAL Hx Chronic Kidney Disease: Yes Hx Kidney Stones: Yes - ENDOCRINE/METABOLIC Hx Endocrine Disorders: No Hx Adrenal Cancer: No Hx Diabetes Insipidus: No Hx Diabetes Mellitus Type 1: No Hx Diabetes Mellitus Type 2: No Hx Hyperthyroidism: No Hx Hypothyroidism: No Hx Systemic Lupus Erythematosus: No - HEMATOLOGICAL/ONCOLOGICAL Hx Anemia: Yes Hx Human Immunodeficiency Virus (HIV): No - INTEGUMENTARY Hx Dermatological Problems: No Hx Basil Cell: No Hx Do: No Hx Cellulitis: No Hx Eczema: No Hx Melanoma: No Hx Psoriasis: No Hx Squamous Cell: No - MUSCULOSKELETAL/RHEUMATOLOGICAL Hx Arthritis: Yes (BACK) Hx Rheumatoid Arthritis: Yes - GASTROINTESTINAL Hx Gastrointestinal Disorders: No Hx Bowel Surgery: No Hx Clostridium Difficile: No Hx Colitis: No Hx Colostomy: No Hx Constipation: No Hx Crohn's Disease: No Hx Diarrhea: No Hx Diverticulitis: No Hx Esophageal Varices: No Hx Fatty Liver Disease: No Hx Gall Bladder Disease: No Hx Gastritis: No Hx Gastroesophageal Reflux: No Hx Hemorrhoids: No Hx Ileostomy: No Hx Irritable Bowel: No Hx Liver Failure: No Hx Nausea: No Hx Pancreatitis: No HX Swallowing Problems: No Hx Ulcer: No Hx Vomiting: No - GENITOURINARY/GYNECOLOGICAL Hx Genitourinary Disorders: Yes Hx Bladder Cancer: No Hx Bladder Stone: No Hx Hematuria: No Hx Incontinence: Yes Hx Prostate Cancer: No Hx Prostate Problems: No Hx Reproductive Disorders: No Hx Sexually Transmitted Disorders: No Hx Urinary Tract Infection: Yes (Recurrent) Other/Comment: 2wF to drainage bag intact - PSYCHIATRIC Hx Anxiety: Yes Hx Depression: Yes - SURGICAL HISTORY Hx Surgeries: Yes Hx Abdominal Aortic Aneurysm Repair: No Hx Amputation: No Hx Angiogram: No Hx Angioplasty: No Hx Appendectomy: No Hx Arteriovenous Shunt: No Hx Arthroscopy: No Hx Bile Duct Stent: No Hx Breast Biopsy: No Hx Cataract Extraction: No Hx Cardiac Catheterization: No Hx Carotid Endarterectomy: No Hx Section: No Hx Cholecystectomy: No Hx Coronary Artery Bypass Graft: No Hx Coronary Stent: No Hx Dilation and Curettage: No Hx Eye Surgery: No Hx Femoral-Popliteal Bypass Graft: No Hx Gastric Bypass Surgery: No Hx Herniorrhaphy: No Hx Hysterectomy: No Hx Joint Replacement: No Hx Kidney Transplant: No Hx Liver Transplant: No Hx Mastectomy: No Hx Musculoskeletal Surgery: No Hx Open Heart Surgery: No Hx Open Reduction Internal Fixation: No Hx Orthopedic Surgery: No Hx Parathyroidectomy: No Hx Penile Implant: No Hx Pulmonary Surgery: No Hx Splenectomy: No Hx Thyroidectomy: No Hx Tonsillectomy: No Hx Tubal Ligation: No Hx Valve Replacement: No Hx Vascular Surgery: No Hx Vascular Access Device: No Other/Comment: cysto with removal of stent 05/19/16- kidney stones - ANESTHESIA Hx Anesthesia: Yes Hx Anesthesia Reactions: No Hx Malignant Hyperthermia: No Has any member of the family had a problem w/ anesthesia?: No Meds Allergies/Adverse Reactions: Allergies Allergy/AdvReac Type Severity Reaction Status Date / Time cefazolin Allergy RASH, Verified 11/26/18 19:00 ITCHINESS - Medications Medications: Current Medications Baclofen (Lioresal) 20 mg PO QID [facility] Last Admin: 11/29/18 12:06 Dose: 20 mg Enoxaparin Sodium (Lovenox) 40 mg SC DAILY [facility]; Protocol Last Admin: 11/29/18 12:06 Dose: 40 mg Fentanyl (Duragesic) 1 patch TD Q3D [facility]; Protocol Home Med (Dimethyl Fumarate [Tecfidera]) 240 mg PO Q12 [facility] Last Admin: 11/29/18 12:04 Dose: 240 mg Aztreonam 1 gm/ Sodium (Chloride) 100 mls @ 100 mls/hr IVPB Q8 [facility]; Protocol Last Admin: 11/29/18 11:48 Dose: 100 mls/hr Lamotrigine (Lamictal) 200 mg PO Q12 [facility] Last Admin: 11/29/18 12:06 Dose: 200 mg Levetiracetam (Keppra) 1,000 mg PO QID [facility] Last Admin: 11/29/18 12:05 Dose: 1,000 mg Lorazepam (Ativan) 1 mg PO Q8 PRN PRN Reason: Agitation Oxycodone/Acetaminophen (Percocet 5/325 Mg Tab) 1 tab PO Q8 PRN PRN Reason: Pain, severe (8-10) Stop: 12/02/18 09:01 Last Admin: 11/29/18 12:17 Dose: 1 tab Quetiapine Fumarate (Seroquel) 50 mg PO Q8 PRN PRN Reason: Agitation Results - Vital Signs Recent Vital Signs: Last Vital Signs Temp 97.2 F L 11/29/18 10:03 Pulse 82 11/29/18 10:03 Resp 19 11/29/18 10:03 BP 112/72 11/29/18 10:03 Pulse Ox 97 11/29/18 10:03 - Labs Result Diagrams: 11/28/18 05:35 11/26/18 19:30 Assessment & Plan - Assessment and Plan (Free Text) Assessment: delirium due to medical condition Plan: recommend to discontinue seroquel due to its sedative effect and start haldol 0.5mg q8 prn for agitation unable to assess pt mental status with current presentation please re consult with psychiatry when pt is able to engage in the interview
--- NOTE | 2018-11-29 13:09 | CP.PCM.PN ---
Subjective - Date & Time of Evaluation Date of Evaluation: 11/29/18 Time of Evaluation: 08:00 - Subjective Subjective: afeb alert gets confused agitated no fever Objective - Vital Signs/Intake and Output Vital Signs (last 24 hours): Temp Pulse Resp BP Pulse Ox 97.9 F 94 H 20 104/70 94 L 11/29/18 12:41 11/29/18 12:41 11/29/18 12:41 11/29/18 12:41 11/29/18 12:41 - Medications Medications: Current Medications Baclofen (Lioresal) 20 mg PO QID [facility] Last Admin: 11/29/18 12:06 Dose: 20 mg Enoxaparin Sodium (Lovenox) 40 mg SC DAILY [facility]; Protocol Last Admin: 11/29/18 12:06 Dose: 40 mg Fentanyl (Duragesic) 1 patch TD Q3D [facility]; Protocol Home Med (Dimethyl Fumarate [Tecfidera]) 240 mg PO Q12 [facility] Last Admin: 11/29/18 12:04 Dose: 240 mg Aztreonam 1 gm/ Sodium (Chloride) 100 mls @ 100 mls/hr IVPB Q8 [facility]; Protocol Last Admin: 11/29/18 11:48 Dose: 100 mls/hr Lamotrigine (Lamictal) 200 mg PO Q12 [facility] Last Admin: 11/29/18 12:06 Dose: 200 mg Levetiracetam (Keppra) 1,000 mg PO QID [facility] Last Admin: 11/29/18 12:05 Dose: 1,000 mg Lorazepam (Ativan) 1 mg PO Q8 PRN PRN Reason: Agitation Oxycodone/Acetaminophen (Percocet 5/325 Mg Tab) 1 tab PO Q8 PRN PRN Reason: Pain, severe (8-10) Stop: 12/02/18 09:01 Last Admin: 11/29/18 12:17 Dose: 1 tab Quetiapine Fumarate (Seroquel) 50 mg PO Q8 PRN PRN Reason: Agitation - Labs Labs: 11/28/18 05:35 11/26/18 19:30 PT 12.2 Seconds (9.8-13.1) 11/26/18 19:30 INR 1.1 11/26/18 19:30 APTT 33.4 Seconds (25.6-37.1) 11/26/18 19:30 - Constitutional Appears: Non-toxic, No Acute Distress, Chronically Ill - Head Exam Head Exam: ATRAUMATIC, NORMAL INSPECTION, NORMOCEPHALIC - Eye Exam Eye Exam: EOMI, Normal appearance, PERRL Pupil Exam: NORMAL ACCOMODATION, PERRL - ENT Exam ENT Exam: Mucous Membranes Moist, Normal Exam - Neck Exam Neck Exam: Full ROM, Normal Inspection. absent: Lymphadenopathy - Respiratory Exam Respiratory Exam: Clear to Ausculation Bilateral, NORMAL BREATHING PATTERN - Cardiovascular Exam Cardiovascular Exam: REGULAR RHYTHM, +S1, +S2. absent: Murmur - GI/Abdominal Exam GI & Abdominal Exam: Soft, Normal Bowel Sounds. absent: Tenderness - Rectal Exam Rectal Exam: Deferred - Extremities Exam Extremities Exam: Full ROM, Normal Capillary Refill, Normal Inspection. absent: Joint Swelling, Pedal Edema - Back Exam Back Exam: NORMAL INSPECTION - Neurological Exam Neurological Exam: Alert, Awake, CN II-XII Intact, Motor Sensory Deficit. absent: Normal Gait, Oriented x3 - Psychiatric Exam Psychiatric exam: Normal Affect, Normal Mood - Skin Skin Exam: Dry, Intact, Normal Color, Warm Assessment and Plan (1) Delirium due to another medical condition Status: Acute (2) Seizure Status: Acute - Assessment and Plan (Free Text) Assessment: cont empiric IV rx for min 7 days
--- NOTE | 2018-11-29 14:18 | CP.PCM.PN ---
Subjective - Date & Time of Evaluation Date of Evaluation: 11/29/18 Time of Evaluation: 14:19 - Subjective Subjective: In am the patient was lethargic look like post ictal now is awake, confuse. Psychiatry and ID consult appreciated. Will continue present rx. will follow culture. Objective - Vital Signs/Intake and Output Vital Signs (last 24 hours): Temp Pulse Resp BP Pulse Ox 97.9 F 94 H 20 104/70 94 L 11/29/18 12:41 11/29/18 12:41 11/29/18 12:41 11/29/18 12:41 11/29/18 12:41 - Medications Medications: Current Medications Baclofen (Lioresal) 20 mg PO QID [facility] Last Admin: 11/29/18 12:06 Dose: 20 mg Enoxaparin Sodium (Lovenox) 40 mg SC DAILY [facility]; Protocol Last Admin: 11/29/18 12:06 Dose: 40 mg Fentanyl (Duragesic) 1 patch TD Q3D [facility]; Protocol Haloperidol (Haldol) 0.5 mg PO TID [facility] Home Med (Dimethyl Fumarate [Tecfidera]) 240 mg PO Q12 [facility] Last Admin: 11/29/18 12:04 Dose: 240 mg Aztreonam 1 gm/ Sodium (Chloride) 100 mls @ 100 mls/hr IVPB Q8 [facility]; Protocol Last Admin: 11/29/18 11:48 Dose: 100 mls/hr Lamotrigine (Lamictal) 200 mg PO Q12 [facility] Last Admin: 11/29/18 12:06 Dose: 200 mg Levetiracetam (Keppra) 1,000 mg PO QID [facility] Last Admin: 11/29/18 13:22 Dose: Not Given Lorazepam (Ativan) 1 mg PO Q8 PRN PRN Reason: Agitation Oxycodone/Acetaminophen (Percocet 5/325 Mg Tab) 1 tab PO Q8 PRN PRN Reason: Pain, severe (8-10) Stop: 12/02/18 09:01 Last Admin: 11/29/18 12:17 Dose: 1 tab - Labs Labs: 11/28/18 05:35 11/26/18 19:30 PT 12.2 Seconds (9.8-13.1) 11/26/18 19:30 INR 1.1 05/07/19 19:30 APTT 33.4 Seconds (25.6-37.1) 11/26/18 19:30 - Constitutional Appears: Confused, Chronically Ill - Head Exam Head Exam: ATRAUMATIC, NORMAL INSPECTION - Eye Exam Eye Exam: Normal appearance - ENT Exam ENT Exam: Normal Exam - Neck Exam Neck Exam: Full ROM - Respiratory Exam Respiratory Exam: Clear to Ausculation Bilateral - Cardiovascular Exam Cardiovascular Exam: REGULAR RHYTHM, +S1, +S2 - GI/Abdominal Exam GI & Abdominal Exam: Soft, Normal Bowel Sounds - Extremities Exam Extremities Exam: Normal Inspection - Neurological Exam Neurological Exam: Altered - Psychiatric Exam Psychiatric exam: Anxious - Skin Skin Exam: Normal Color Assessment and Plan (1) Delirium due to general medical condition Status: Acute (2) Multiple sclerosis exacerbation Status: Chronic (3) UTI (urinary tract infection) Status: Acute (4) Seizure Status: Acute (5) Delirium due to another medical condition Status: Acute
[2018-11-30] MEDS: Aztreonam 1 GM in Sodium Chloride 0.9% 100 ML IVPB SCH ×3 (00:51→16:19)
[2018-11-30] MEDS: Haloperidol Lactate 2 mg/ml Liquid PO SCH ×3 (09:06→16:15)
[2018-11-30] MEDS: Enoxaparin 40 mg Syringe SC SCH (09:08)
--- NOTE | 2018-11-30 18:01 | CP.PCM.PN ---
Subjective - Date & Time of Evaluation Date of Evaluation: 11/30/18 Time of Evaluation: 18:01 - Subjective Subjective: Still agitated in delirium with the u/c are positive Objective - Vital Signs/Intake and Output Vital Signs (last 24 hours): Temp Pulse Resp BP Pulse Ox 98 F 77 20 101/68 94 L 11/30/18 08:57 11/30/18 08:57 11/30/18 08:57 11/30/18 08:57 11/30/18 08:57 Intake and Output: 11/30/18 11/30/18 11:59 23:59 Intake Total 520 Output Total 200 Balance 320 - Medications Medications: Current Medications Baclofen (Lioresal) 20 mg PO QID [facility] Last Admin: 11/30/18 16:16 Dose: 20 mg Fentanyl (Duragesic) 1 patch TD Q3D [facility]; Protocol Last Admin: 11/30/18 15:06 Dose: 1 patch Haloperidol Lactate (Haldol) 0.5 mg PO TID [facility] Last Admin: 11/30/18 16:15 Dose: 0.5 mg Home Med (Dimethyl Fumarate [Tecfidera]) 240 mg PO Q12 [facility] Last Admin: 11/30/18 09:05 Dose: 240 mg Aztreonam 1 gm/ Sodium (Chloride) 100 mls @ 100 mls/hr IVPB Q8 [facility]; Protocol Last Admin: 11/30/18 16:19 Dose: 100 mls/hr Lamotrigine (Lamictal) 200 mg PO Q12 [facility] Last Admin: 11/30/18 09:07 Dose: 200 mg Levetiracetam (Keppra) 1,000 mg PO QID [facility] Last Admin: 11/30/18 16:15 Dose: 1,000 mg Lorazepam (Ativan) 1 mg PO Q8 PRN PRN Reason: Agitation Oxycodone/Acetaminophen (Percocet 5/325 Mg Tab) 1 tab PO Q8 PRN PRN Reason: Pain, severe (8-10) Stop: 12/02/18 09:01 Last Admin: 11/29/18 22:53 Dose: 1 tab - Labs Labs: 11/28/18 05:35 11/26/18 19:30 PT 12.2 Seconds (9.8-13.1) 11/26/18 19:30 INR 1.1 11/26/18 19:30 APTT 33.4 Seconds (25.6-37.1) 11/26/18 19:30 - Constitutional Appears: Combative, Agitated, Confused - Head Exam Head Exam: ATRAUMATIC, NORMAL INSPECTION, NORMOCEPHALIC - Eye Exam Eye Exam: Normal appearance - ENT Exam ENT Exam: Mucous Membranes Moist - Neck Exam Neck Exam: Full ROM - Respiratory Exam Respiratory Exam: Clear to Ausculation Bilateral - Cardiovascular Exam Cardiovascular Exam: REGULAR RHYTHM, +S1, +S2 - GI/Abdominal Exam GI & Abdominal Exam: Soft, Normal Bowel Sounds - Extremities Exam Extremities Exam: Normal Inspection - Neurological Exam Neurological Exam: Altered Assessment and Plan (1) Delirium due to general medical condition Status: Acute (2) Multiple sclerosis exacerbation Status: Chronic (3) UTI (urinary tract infection) Status: Acute (4) Seizure Status: Acute (5) Delirium due to another medical condition Status: Acute
[2018-12-01] MEDS: Aztreonam 1 GM in Sodium Chloride 0.9% 100 ML IVPB SCH ×2 (00:21→09:29)
[2018-12-01] MEDS: Haloperidol Lactate 2 mg/ml Liquid PO SCH ×3 (09:32→17:33)
[2018-12-01] MEDS: Oxycodone/Acetaminophen 5/325 mg Tab PO PRN ×2 (09:48→22:19)
[2018-12-01] MEDS ORDERED: Ciprofloxacin 200mg/100ml D5W 100 ML IVPB SCH (10:45)
[2018-12-01] MEDS ORDERED: Enoxaparin 40 mg Syringe SC SCH (12:00)
--- NOTE | 2018-12-01 12:48 | CP.PCM.PN ---
Subjective - Date & Time of Evaluation Date of Evaluation: 12/01/18 Time of Evaluation: 09:00 - Subjective Subjective: seen on rounds patient examined chart reviewed orders signed Objective - Vital Signs/Intake and Output Vital Signs (last 24 hours): Temp Pulse Resp BP Pulse Ox 97.7 F 61 20 110/72 95 12/01/18 08:57 12/01/18 08:57 12/01/18 08:57 12/01/18 08:57 12/01/18 08:57 - Medications Medications: Current Medications Baclofen (Lioresal) 20 mg PO QID [facility] Last Admin: 12/01/18 12:40 Dose: 20 mg Enoxaparin Sodium (Lovenox) 40 mg SC DAILY [facility]; Protocol Fentanyl (Duragesic) 1 patch TD Q3D [facility]; Protocol Last Admin: 11/30/18 15:06 Dose: 1 patch Haloperidol Lactate (Haldol) 0.5 mg PO TID [facility] Last Admin: 12/01/18 12:40 Dose: 0.5 mg Home Med (Dimethyl Fumarate [Tecfidera]) 240 mg PO Q12 [facility] Last Admin: 12/01/18 09:32 Dose: 240 mg Aztreonam 1 gm/ Sodium (Chloride) 100 mls @ 100 mls/hr IVPB Q8 [facility]; Protocol Last Admin: 12/01/18 09:29 Dose: 100 mls/hr Ciprofloxacin (Cipro 200mg/100ml D5w) 100 mls @ 100 mls/hr IVPB Q12 [facility]; Protocol Lamotrigine (Lamictal) 200 mg PO Q12 [facility] Last Admin: 12/01/18 09:33 Dose: 200 mg Levetiracetam (Keppra) 1,000 mg PO QID [facility] Last Admin: 12/01/18 12:40 Dose: 1,000 mg Oxycodone/Acetaminophen (Percocet 5/325 Mg Tab) 1 tab PO Q8 PRN PRN Reason: Pain, severe (8-10) Stop: 12/02/18 09:01 Last Admin: 12/01/18 09:48 Dose: 1 tab - Labs Labs: 11/28/18 05:35 11/26/18 19:30 PT 12.2 Seconds (9.8-13.1) 11/26/18 19:30 INR 1.1 11/26/18 19:30 APTT 33.4 Seconds (25.6-37.1) 11/26/18 19:30 - Constitutional Appears: No Acute Distress, Confused, Chronically Ill - Head Exam Head Exam: ATRAUMATIC, NORMAL INSPECTION, NORMOCEPHALIC - Eye Exam Eye Exam: EOMI, Normal appearance, PERRL Pupil Exam: NORMAL ACCOMODATION, PERRL - ENT Exam ENT Exam: Mucous Membranes Moist, Normal Exam - Neck Exam Neck Exam: Full ROM, Normal Inspection. absent: Lymphadenopathy - Respiratory Exam Respiratory Exam: Clear to Ausculation Bilateral, NORMAL BREATHING PATTERN - Cardiovascular Exam Cardiovascular Exam: REGULAR RHYTHM, +S1, +S2. absent: Murmur - GI/Abdominal Exam GI & Abdominal Exam: Soft, Normal Bowel Sounds. absent: Tenderness - Rectal Exam Rectal Exam: Deferred - Exam Exam: NORMAL INSPECTION - Extremities Exam Extremities Exam: Full ROM, Normal Capillary Refill, Normal Inspection. 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
[2018-12-01] MEDS ORDERED: Linezolid 600 mg in D5W 300 ml 600 MG/300 ML BAG IVPB SCH (13:00)
[2018-12-01 13:52] LABS: ALB/GLOB RATIO 1.4 (1.0-2.1); ALBUMIN 4.3 g/dL (3.5-5.0); ALT/SGPT 38 U/L (21-72); AST/SGOT 35 U/L (17-59); BLOOD UREA NITROGEN 13 mg/dl (9-20); CALCIUM 9.2 mg/dL (8.4-10.2); GFR NON-AFRICAN AMERICAN > 60
[2018-12-01 20:40] LABS: HEMOGLOBIN 14.4 g/dL (12.0-18.0); MEAN CELL VOLUME 92.3 fl (80.0-94.0); MEAN CORPUSCULAR HEMOGLOBIN 30.6 pg (27.0-31.0); MEAN CORPUSCULAR HGB CONC 33.2 g/dL (33.0-37.0); RBC 4.7 Mil/uL (4.40-5.90); RED CELL DISTRIBUTION WIDTH 13.8 % (11.5-14.5); WHITE BLOOD COUNT 7.9 K/uL (4.8-10.8)
--- NOTE | 2018-12-01 21:20 | CP.PCM.PN ---
Subjective - Date & Time of Evaluation Date of Evaluation: 12/01/18 Time of Evaluation: 21:22 - Subjective Subjective: Patient still agitated, anxious, in delirium. Objective - Vital Signs/Intake and Output Vital Signs (last 24 hours): Temp Pulse Resp BP Pulse Ox 97.4 F L 83 18 100/66 94 L 12/01/18 20:04 12/01/18 20:04 12/01/18 20:04 12/01/18 20:04 12/01/18 20:04 Intake and Output: 12/01/18 12/01/18 11:59 23:59 Intake Total 100 Balance 100 - Medications Medications: Current Medications Baclofen (Lioresal) 20 mg PO QID [facility] Last Admin: 12/01/18 16:06 Dose: 20 mg Enoxaparin Sodium (Lovenox) 40 mg SC DAILY [facility]; Protocol Fentanyl (Duragesic) 1 patch TD Q3D [facility]; Protocol Last Admin: 11/30/18 15:06 Dose: 1 patch Haloperidol Lactate (Haldol) 0.5 mg PO TID [facility] Last Admin: 12/01/18 17:33 Dose: 0.5 mg Home Med (Dimethyl Fumarate [Tecfidera]) 240 mg PO Q12 [facility] Last Admin: 12/01/18 09:32 Dose: 240 mg Lamotrigine (Lamictal) 200 mg PO Q12 [facility] Last Admin: 12/01/18 09:33 Dose: 200 mg Levetiracetam (Keppra) 1,000 mg PO QID [facility] Last Admin: 12/01/18 16:07 Dose: 1,000 mg Nitrofurantoin Macrocrystals (Macrobid) 100 mg PO Q12 [facility]; Protocol Last Admin: 12/01/18 16:06 Dose: 100 mg Oxycodone/Acetaminophen (Percocet 5/325 Mg Tab) 1 tab PO Q8 PRN PRN Reason: Pain, severe (8-10) Stop: 12/02/18 09:01 Last Admin: 12/01/18 09:48 Dose: 1 tab - Labs Labs: 12/01/18 20:30 12/01/18 13:07 PT 12.2 Seconds (9.8-13.1) 11/26/18 19:30 INR 1.1 11/26/18 19:30 APTT 33.4 Seconds (25.6-37.1) 11/26/18 19:30 - Constitutional Appears: Combative, Agitated, Confused, Chronically Ill - Head Exam Head Exam: ATRAUMATIC, NORMAL INSPECTION, NORMOCEPHALIC - Eye Exam Eye Exam: Normal appearance - ENT Exam ENT Exam: Normal Exam - Neck Exam Neck Exam: Full ROM - Respiratory Exam Respiratory Exam: Decreased Breath Sounds - Cardiovascular Exam Cardiovascular Exam: REGULAR RHYTHM, +S1, +S2 - GI/Abdominal Exam GI & Abdominal Exam: Soft, Normal Bowel Sounds - Extremities Exam Extremities Exam: Normal Inspection - Neurological Exam Neurological Exam: Altered - Psychiatric Exam Psychiatric exam: Agitated, Anxious - Skin Skin Exam: Normal Color Assessment and Plan (1) Delirium due to general medical condition Status: Acute (2) Multiple sclerosis exacerbation Status: Chronic (3) UTI (urinary tract infection) Status: Acute (4) Seizure Status: Acute (5) Delirium due to another medical condition Status: Acute - Assessment and Plan (Free Text) Plan: will follow if any improvement on present rx.
[2018-12-01 21:28] LABS: INR 1.1; PROTHROMBIN TIME 12.1 Seconds (9.8-13.1)
[2018-12-01 21:31] LABS: PARTIAL THROMBOPLASTIN TIME 36.4 Seconds (25.6-37.1)
[2018-12-02 08:04] VITALS: BMI 27.1
[2018-12-02] MEDS: Enoxaparin 40 mg Syringe SC SCH (09:46)
[2018-12-02] MEDS: Haloperidol Lactate 2 mg/ml Liquid PO SCH ×4 (09:47→21:42)
[2018-12-02] MEDS: Oxycodone/Acetaminophen 5/325 mg Tab PO PRN ×2 (13:58→21:58)
--- NOTE | 2018-12-02 17:51 | CP.PCM.PN ---
Subjective - Date & Time of Evaluation Date of Evaluation: 12/02/18 Time of Evaluation: 13:15 - Subjective Subjective: Patient still agitated at times, anxious. Objective - Vital Signs/Intake and Output Vital Signs (last 24 hours): Temp Pulse Resp BP Pulse Ox 98.3 F 87 18 109/71 95 12/02/18 15:50 12/02/18 15:50 12/02/18 15:50 12/02/18 15:50 12/02/18 15:50 - Medications Medications: Current Medications Baclofen (Lioresal) 20 mg PO QID [facility] Last Admin: 12/02/18 17:39 Dose: 20 mg Docusate Sodium (Colace) 100 mg PO BID [facility] Last Admin: 12/02/18 17:36 Dose: 100 mg Enoxaparin Sodium (Lovenox) 40 mg SC DAILY [facility]; Protocol Last Admin: 12/02/18 09:46 Dose: 40 mg Fentanyl (Duragesic) 1 patch TD Q3D [facility]; Protocol Last Admin: 11/30/18 15:06 Dose: 1 patch Haloperidol Lactate (Haldol) 0.5 mg PO TID [facility] Last Admin: 12/02/18 17:38 Dose: 0.5 mg Home Med (Dimethyl Fumarate [Tecfidera]) 240 mg PO Q12 [facility] Last Admin: 12/02/18 09:48 Dose: 240 mg Lamotrigine (Lamictal) 200 mg PO Q12 [facility] Last Admin: 12/02/18 09:50 Dose: 200 mg Levetiracetam (Keppra) 1,000 mg PO QID [facility] Last Admin: 12/02/18 17:38 Dose: 1,000 mg Nitrofurantoin Macrocrystals (Macrobid) 100 mg PO Q12 [facility]; Protocol Last Admin: 12/02/18 09:50 Dose: 100 mg Oxycodone/Acetaminophen (Percocet 5/325 Mg Tab) 1 tab PO Q8 PRN PRN Reason: Pain, moderate (4-7) Stop: 12/05/18 13:49 Last Admin: 12/02/18 13:58 Dose: 1 tab - Labs Labs: 12/01/18 20:30 12/01/18 13:07 PT 12.1 Seconds (9.8-13.1) 12/01/18 21:00 INR 1.1 12/01/18 21:00 APTT 36.4 Seconds (25.6-37.1) 12/01/18 21:00 - Constitutional Appears: Agitated, Confused, Chronically Ill - Head Exam Head Exam: ATRAUMATIC, NORMAL INSPECTION, NORMOCEPHALIC - Eye Exam Eye Exam: Normal appearance - ENT Exam ENT Exam: Mucous Membranes Moist - Neck Exam Neck Exam: Full ROM - Respiratory Exam Respiratory Exam: Clear to Ausculation Bilateral - Cardiovascular Exam Cardiovascular Exam: REGULAR RHYTHM, +S1, +S2 - GI/Abdominal Exam GI & Abdominal Exam: Normal Bowel Sounds - Extremities Exam Extremities Exam: Normal Inspection - Neurological Exam Neurological Exam: Altered, Awake - Psychiatric Exam Psychiatric exam: Agitated, Anxious - Skin Skin Exam: Normal Color Assessment and Plan (1) Delirium due to general medical condition Status: Acute (2) Multiple sclerosis exacerbation Status: Chronic (3) UTI (urinary tract infection) Status: Acute (4) Seizure Status: Acute (5) Delirium due to another medical condition Status: Acute
--- NOTE | 2018-12-02 23:12 | CP.PCM.PN ---
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 Has taken zosyn without problem in past will reculture and start zosyn for UTI Objective - Vital Signs/Intake and Output Vital Signs (last 24 hours): Temp Pulse Resp BP Pulse Ox 97.4 F L 90 18 109/75 94 L 12/02/18 20:13 12/02/18 20:13 12/02/18 20:13 12/02/18 20:13 12/02/18 20:13 - Medications Medications: Current Medications Baclofen (Lioresal) 20 mg PO QID [facility] Last Admin: 12/02/18 21:46 Dose: 20 mg Docusate Sodium (Colace) 100 mg PO BID [facility] Last Admin: 12/02/18 17:36 Dose: 100 mg Enoxaparin Sodium (Lovenox) 40 mg SC DAILY [facility]; Protocol Last Admin: 12/02/18 09:46 Dose: 40 mg Fentanyl (Duragesic) 1 patch TD Q3D [facility]; Protocol Last Admin: 11/30/18 15:06 Dose: 1 patch Haloperidol Lactate (Haldol) 1 mg PO TID [facility] Last Admin: 12/02/18 21:42 Dose: 1 mg Home Med (Dimethyl Fumarate [Tecfidera]) 240 mg PO Q12 [facility] Last Admin: 12/02/18 21:46 Dose: 240 mg Tigecycline 100 mg/ Sodium (Chloride) 100 mls @ 100 mls/hr IVPB ONCE ONE; Protocol Stop: 12/03/18 00:03 Tigecycline 50 mg/ Sodium (Chloride) 100 mls @ 100 mls/hr IVPB Q12 [facility]; Protocol Lamotrigine (Lamictal) 200 mg PO Q12 [facility] Last Admin: 12/02/18 21:43 Dose: 200 mg Levetiracetam (Keppra) 1,000 mg PO QID [facility] Last Admin: 12/02/18 21:45 Dose: 1,000 mg Oxycodone/Acetaminophen (Percocet 5/325 Mg Tab) 1 tab PO Q8 PRN PRN Reason: Pain, moderate (4-7) Stop: 12/05/18 13:49 Last Admin: 12/02/18 21:58 Dose: 1 tab - Labs Labs: 12/01/18 20:30 12/01/18 13:07 PT 12.1 Seconds (9.8-13.1) 12/01/18 21:00 INR 1.1 12/01/18 21:00 APTT 36.4 Seconds (25.6-37.1) 12/01/18 21:00 Assessment and Plan (1) Delirium due to another medical condition Status: Acute (2) Seizure Status: Acute
[2018-12-03] MEDS: Piperacillin/Tazobact 3.375 GM in Sodium Chloride 0.9% 100 ML IVPB SCH ×2 (01:31→06:52)
[2018-12-03] MEDS: Haloperidol Lactate 2 mg/ml Liquid PO SCH ×3 (10:06→17:29)
[2018-12-03] MEDS: Enoxaparin 40 mg Syringe SC SCH ×2 (10:07→10:13)
--- NOTE | 2018-12-03 11:21 | CP.PCM.PN ---
Subjective - Date & Time of Evaluation Date of Evaluation: 12/03/18 Time of Evaluation: 07:00 - Subjective Subjective: cultures repeated started zosyn Objective - Vital Signs/Intake and Output Vital Signs (last 24 hours): Temp Pulse Resp BP Pulse Ox 97.9 F 87 18 116/66 97 12/03/18 08:10 12/03/18 08:10 12/03/18 08:10 12/03/18 08:10 12/03/18 08:10 - Medications Medications: Current Medications Baclofen (Lioresal) 20 mg PO QID [facility] Last Admin: 12/03/18 10:07 Dose: 20 mg Docusate Sodium (Colace) 100 mg PO BID [facility] Last Admin: 12/03/18 10:05 Dose: 100 mg Enoxaparin Sodium (Lovenox) 40 mg SC DAILY [facility]; Protocol Last Admin: 12/03/18 10:13 Dose: 40 mg Fentanyl (Duragesic) 1 patch TD Q3D [facility]; Protocol Last Admin: 11/30/18 15:06 Dose: 1 patch Haloperidol Lactate (Haldol) 1 mg PO TID [facility] Last Admin: 12/03/18 10:06 Dose: 1 mg Home Med (Dimethyl Fumarate [Tecfidera]) 240 mg PO Q12 [facility] Last Admin: 12/03/18 10:05 Dose: 240 mg Piperacillin Sod/Tazobactam (Sod 3.375 gm/ Sodium Chloride) 100 mls @ 100 mls/ hr IVPB Q6H [facility]; Protocol Last Admin: 12/03/18 06:52 Dose: 100 mls/hr Lamotrigine (Lamictal) 200 mg PO Q12 [facility] Last Admin: 12/03/18 10:07 Dose: 200 mg Levetiracetam (Keppra) 1,000 mg PO QID [facility] Last Admin: 12/03/18 10:04 Dose: 1,000 mg Oxycodone/Acetaminophen (Percocet 5/325 Mg Tab) 1 tab PO Q8 PRN PRN Reason: Pain, moderate (4-7) Stop: 12/05/18 13:49 Last Admin: 12/02/18 21:58 Dose: 1 tab - Labs Labs: 12/01/18 20:30 12/01/18 13:07 PT 12.1 Seconds (9.8-13.1) 12/01/18 21:00 INR 1.1 12/01/18 21:00 APTT 36.4 Seconds (25.6-37.1) 12/01/18 21:00 - Constitutional Appears: Non-toxic, Confused, Chronically Ill - Head Exam Head Exam: ATRAUMATIC, NORMAL INSPECTION, NORMOCEPHALIC - Eye Exam Eye Exam: EOMI, Normal appearance, PERRL Pupil Exam: NORMAL ACCOMODATION, PERRL - ENT Exam ENT Exam: Mucous Membranes Moist, Normal Exam - Neck Exam Neck Exam: Full ROM, Normal Inspection. absent: Lymphadenopathy - Respiratory Exam Respiratory Exam: Clear to Ausculation Bilateral, NORMAL BREATHING PATTERN - Cardiovascular Exam Cardiovascular Exam: REGULAR RHYTHM, +S1, +S2. absent: Murmur - GI/Abdominal Exam GI & Abdominal Exam: Soft, Normal Bowel Sounds. absent: Tenderness - Rectal Exam Rectal Exam: Deferred - Exam Exam: NORMAL INSPECTION - Extremities Exam Extremities Exam: Full ROM, Normal Capillary Refill, Normal Inspection. absent: Joint Swelling, Pedal Edema - Back Exam Back Exam: NORMAL INSPECTION - Neurological Exam Neurological Exam: Alert, Awake, CN II-XII Intact. absent: Normal Gait - Psychiatric Exam Psychiatric exam: Normal Affect, Normal Mood - Skin Skin Exam: Dry, Intact, Normal Color, Warm Assessment and Plan (1) Delirium due to another medical condition Status: Acute (2) Seizure Status: Acute - Assessment and Plan (Free Text) Assessment: repeat cultures add azactgam
[2018-12-03] MEDS ORDERED: DiphenhydrAMINE 50 mg/ml Inj IVP ONE (12:00)
[2018-12-03 12:19] LABS: URINE BILIRUBIN NEGATIVE (NEGATIVE); URINE BLOOD NEGATIVE (NEGATIVE); URINE CLARITY CLEAR (Clear); URINE COLOR YELLOW (YELLOW); URINE GLUCOSE (UA) NEG (NEGATIVE); URINE LEUKOCYTE ESTERASE NEG Leu/uL (Negative); URINE PROTEIN NEGATIVE (NEGATIVE); URINE UROBILINOGEN 0.2-1.0 mg/dL (0.2-1.0)
[2018-12-03] MEDS: Oxycodone/Acetaminophen 5/325 mg Tab PO PRN (14:48)
--- NOTE | 2018-12-03 15:01 | CP.PCM.PN ---
Subjective - Date & Time of Evaluation Date of Evaluation: 12/03/18 Time of Evaluation: 15:02 - Subjective Subjective: At present comfortable. Patient psychosis related to advance MS is better controlled on Haldol, he poorly responded to other anti psychotic medication. Had an allergic reaction to antibx. The antibx were changed at present can tolerate them very well. Continue 1:1. Will follow. Objective - Vital Signs/Intake and Output Vital Signs (last 24 hours): Temp Pulse Resp BP Pulse Ox 97.7 F 98 H 18 119/61 96 12/03/18 12:04 12/03/18 12:04 12/03/18 12:04 12/03/18 12:04 12/03/18 12:04 - Medications Medications: Current Medications Baclofen (Lioresal) 20 mg PO QID [facility] Last Admin: 12/03/18 14:49 Dose: 20 mg Docusate Sodium (Colace) 100 mg PO BID [facility] Last Admin: 12/03/18 10:05 Dose: 100 mg Enoxaparin Sodium (Lovenox) 40 mg SC DAILY [facility]; Protocol Last Admin: 12/03/18 10:13 Dose: 40 mg Haloperidol Lactate (Haldol) 1 mg PO TID [facility] Last Admin: 12/03/18 14:50 Dose: 1 mg Home Med (Dimethyl Fumarate [Tecfidera]) 240 mg PO Q12 [facility] Last Admin: 12/03/18 10:05 Dose: 240 mg Aztreonam 1 gm/ Sodium (Chloride) 100 mls @ 100 mls/hr IVPB Q12 [facility]; Protocol Lamotrigine (Lamictal) 200 mg PO Q12 [facility] Last Admin: 12/03/18 10:07 Dose: 200 mg Levetiracetam (Keppra) 1,000 mg PO QID [facility] Last Admin: 12/03/18 14:49 Dose: 1,000 mg Oxycodone/Acetaminophen (Percocet 5/325 Mg Tab) 1 tab PO Q8 PRN PRN Reason: Pain, moderate (4-7) Stop: 12/05/18 13:49 Last Admin: 12/03/18 14:48 Dose: 1 tab - Labs Labs: 12/01/18 20:30 12/01/18 13:07 PT 12.1 Seconds (9.8-13.1) 12/01/18 21:00 INR 1.1 12/01/18 21:00 APTT 36.4 Seconds (25.6-37.1) 12/01/18 21:00 - Constitutional Appears: Agitated, Confused, Chronically Ill - Head Exam Head Exam: ATRAUMATIC, NORMAL INSPECTION, NORMOCEPHALIC - Eye Exam Eye Exam: Normal appearance - ENT Exam ENT Exam: Mucous Membranes Moist - Neck Exam Neck Exam: Full ROM - Respiratory Exam Respiratory Exam: Clear to Ausculation Bilateral - Cardiovascular Exam Cardiovascular Exam: REGULAR RHYTHM, +S1, +S2 - GI/Abdominal Exam GI & Abdominal Exam: Soft, Normal Bowel Sounds - Extremities Exam Extremities Exam: Normal Inspection - Neurological Exam Neurological Exam: Alert, Altered, Awake - Psychiatric Exam Psychiatric exam: Anxious, Flat Affect - Skin Skin Exam: Normal Color Assessment and Plan (1) Delirium due to general medical condition Status: Acute (2) Multiple sclerosis exacerbation Status: Chronic (3) UTI (urinary tract infection) Status: Acute (4) Seizure Status: Acute (5) Delirium due to another medical condition Status: Acute (6) Psychosis Status: Acute
[2018-12-03] MEDS: Aztreonam 1 GM in Sodium Chloride 0.9% 100 ML IVPB SCH (21:55)
[2018-12-04] MEDS: Enoxaparin 40 mg Syringe SC SCH (09:50)
[2018-12-04] MEDS: Aztreonam 1 GM in Sodium Chloride 0.9% 100 ML IVPB SCH ×2 (10:01→21:44)
--- NOTE | 2018-12-04 11:33 | CP.PCM.PN ---
Subjective - Date & Time of Evaluation Date of Evaluation: 12/04/18 Time of Evaluation: 08:00 - Subjective Subjective: events noted chart reviewed CULTURES REPEATED U/A APPEARS BENIGN Objective - Vital Signs/Intake and Output Vital Signs (last 24 hours): Temp Pulse Resp BP Pulse Ox 98.0 F 79 18 119/61 98 12/04/18 07:54 12/04/18 07:54 12/04/18 07:54 12/04/18 07:54 12/04/18 07:54 - Medications Medications: Current Medications Baclofen (Lioresal) 20 mg PO QID [facility] Last Admin: 12/03/18 21:57 Dose: 20 mg Docusate Sodium (Colace) 100 mg PO BID [facility] Last Admin: 12/04/18 09:53 Dose: 100 mg Haloperidol Lactate (Haldol) 1 mg PO TID [facility] Last Admin: 12/03/18 17:29 Dose: 1 mg Home Med (Dimethyl Fumarate [Tecfidera]) 240 mg PO Q12 [facility] Last Admin: 12/04/18 09:52 Dose: 240 mg Aztreonam 1 gm/ Sodium (Chloride) 100 mls @ 100 mls/hr IVPB Q12 [facility]; Protocol Last Admin: 12/04/18 10:01 Dose: 100 mls/hr Lamotrigine (Lamictal) 200 mg PO Q12 [facility] Last Admin: 12/04/18 09:52 Dose: 200 mg Levetiracetam (Keppra) 1,000 mg PO QID [facility] Last Admin: 12/04/18 09:52 Dose: 1,000 mg Oxycodone/Acetaminophen (Percocet 5/325 Mg Tab) 1 tab PO Q8 PRN PRN Reason: Pain, moderate (4-7) Stop: 12/05/18 13:49 Last Admin: 12/03/18 14:48 Dose: 1 tab - Labs Labs: 12/01/18 20:30 12/01/18 13:07 PT 12.1 Seconds (9.8-13.1) 12/01/18 21:00 INR 1.1 12/01/18 21:00 APTT 36.4 Seconds (25.6-37.1) 12/01/18 21:00 - Constitutional Appears: Non-toxic, Chronically Ill - Head Exam Head Exam: NORMOCEPHALIC - Eye Exam Eye Exam: absent: Scleral icterus - ENT Exam ENT Exam: Mucous Membranes Dry - Neck Exam Neck Exam: absent: Lymphadenopathy - Respiratory Exam Respiratory Exam: Decreased Breath Sounds - Cardiovascular Exam Cardiovascular Exam: REGULAR RHYTHM - GI/Abdominal Exam GI & Abdominal Exam: Distended, Soft - Rectal Exam Rectal Exam: Deferred - Exam Exam: NORMAL INSPECTION - Extremities Exam Extremities Exam: absent: Pedal Edema - Back Exam Back Exam: absent: CVA tenderness (L), CVA tenderness (R) - Neurological Exam Neurological Exam: Altered - Psychiatric Exam Psychiatric exam: Depressed Assessment and Plan (1) Delirium due to another medical condition Status: Acute (2) Seizure Status: Acute - Assessment and Plan (Free Text) Assessment: REPEAT U/A APPEARS BENIGN CONSIDER D/C IV ANTIBIOTICS MAY NEED CM OR [facility]
--- NOTE | 2018-12-04 12:49 | CP.PCM.PN ---
Subjective - Date & Time of Evaluation Date of Evaluation: 12/04/18 Time of Evaluation: 12:49 - Subjective Subjective: Patient improving well on present rx. Will continue antibx for about one week. Objective - Vital Signs/Intake and Output Vital Signs (last 24 hours): Temp Pulse Resp BP Pulse Ox 98.0 F 89 18 128/74 98 12/04/18 12:00 12/04/18 12:00 12/04/18 12:00 12/04/18 12:00 12/04/18 12:00 - Medications Medications: Current Medications Baclofen (Lioresal) 20 mg PO QID [facility] Last Admin: 12/03/18 21:57 Dose: 20 mg Docusate Sodium (Colace) 100 mg PO BID [facility] Last Admin: 12/04/18 09:53 Dose: 100 mg Haloperidol Lactate (Haldol) 1 mg PO TID [facility] Last Admin: 12/03/18 17:29 Dose: 1 mg Home Med (Dimethyl Fumarate [Tecfidera]) 240 mg PO Q12 [facility] Last Admin: 12/04/18 09:52 Dose: 240 mg Aztreonam 1 gm/ Sodium (Chloride) 100 mls @ 100 mls/hr IVPB Q12 [facility]; Protocol Last Admin: 12/04/18 10:01 Dose: 100 mls/hr Lamotrigine (Lamictal) 200 mg PO Q12 [facility] Last Admin: 12/04/18 09:52 Dose: 200 mg Levetiracetam (Keppra) 1,000 mg PO QID [facility] Last Admin: 12/04/18 09:52 Dose: 1,000 mg Oxycodone/Acetaminophen (Percocet 5/325 Mg Tab) 1 tab PO Q8 PRN PRN Reason: Pain, moderate (4-7) Stop: 12/05/18 13:49 Last Admin: 12/03/18 14:48 Dose: 1 tab - Labs Labs: 12/01/18 20:30 12/01/18 13:07 PT 12.1 Seconds (9.8-13.1) 12/01/18 21:00 INR 1.1 12/01/18 21:00 APTT 36.4 Seconds (25.6-37.1) 12/01/18 21:00 - Constitutional Appears: Confused, Chronically Ill - Eye Exam Eye Exam: Normal appearance - ENT Exam ENT Exam: Mucous Membranes Moist - Neck Exam Neck Exam: Full ROM - Respiratory Exam Respiratory Exam: Clear to Ausculation Bilateral - Cardiovascular Exam Cardiovascular Exam: REGULAR RHYTHM, +S1, +S2 - GI/Abdominal Exam GI & Abdominal Exam: Soft, Normal Bowel Sounds - Extremities Exam Extremities Exam: Normal Inspection - Neurological Exam Neurological Exam: Altered - Psychiatric Exam Psychiatric exam: Flat Affect - Skin Skin Exam: Normal Color Assessment and Plan (1) Delirium due to general medical condition Status: Acute (2) Multiple sclerosis exacerbation Status: Chronic (3) UTI (urinary tract infection) Status: Acute (4) Seizure Status: Acute (5) Delirium due to another medical condition Status: Acute (6) Psychosis Status: Acute
[2018-12-04] MEDS: Haloperidol Lactate 2 mg/ml Liquid PO SCH ×3 (13:48→17:30)
[2018-12-05] MEDS: Oxycodone/Acetaminophen 5/325 mg Tab PO PRN (02:57)
[2018-12-05] MEDS: Haloperidol Lactate 2 mg/ml Liquid PO SCH ×3 (09:22→19:00)
[2018-12-05] MEDS: Aztreonam 1 GM in Sodium Chloride 0.9% 100 ML IVPB SCH (09:23)
--- NOTE | 2018-12-05 11:40 | PQF ---
PROVIDER RESPONSE TEXT: Sepsis ruled out REVIEWER QUERY TEXT: Conflicting Documentation Clarification Sepsis is listed in the ER record and referred for ID evaluation of possible UTI/ sepsis is documente d in the 11/27/18:ID consult. Please document if the condition is: -- Confirmed and current -- Confirmed, treated and resolved -- Ruled out -- Other, please specify Pulse:130->98->104->95->95->103->106->114->121 Respiration: 26->17->18->18-.18 Prolactin:41.8 Signed ER note: Clinical Impression: Seizure, Sepsis, UTI (urinary tract infection), Multiple scleros is H and P: includes: H and P: PMH: Dementia, Depression, DVT, Kidney Stones, Multiple Sclerosis with se daysi neuro deficit paraplegia bed ridding since 2008, Peripheral Edema , Pneumonia, PE, CKD, Seizures , recurrent UTI and sepsis presented in ER with seizure. UA possible UTI.: hx. of status epileptic an d sepsis with recurrent UTI and respiratory failure with several intervention of mechanical ventilati on Assess: (1) Delirium due to general medical condition Status: Acute (2) Multiple sclerosis exacerbation Status: Chronic (3) UTI (urinary tract infection) Status: Acute (4) Seizure Status: Acute Priority: Low 11/27 ID: presented in ER with seizures and referred for ID eval of possible UTI/ sepsis Referred for ID eval for antibiotic management Assessment: leukocytosis s/p seizure :r/o UTI r/o leukemoid reaction await cultures' cont IV antibiot ics 12/01 ID urine c/s + VRE could be colonized 12/04 ID: repeat U/A appears benign consider D/C IVAB's The patient's Clinical Indicators include: -- Query created by: Blanca Suh on 12/05/2018 10:06 AM Electronically signed by: Leo Morris MD 12/05/2018 11:37 AM
--- NOTE | 2018-12-05 11:40 | PQF ---
PROVIDER RESPONSE TEXT: UTI acute REVIEWER QUERY TEXT: Clarification of Clinical Diagnostic Findings Please clarify if a UTI is ruled in or ruled out? -OR: Other explanation of clinical finding H and P: includes: UTI: Acute 12/01 ID urine c/s + VRE could be colonized 12/04 ID: repeat U/A appears benign consider D/C IV antibiotics The patient's Clinical Indicators include: -- Query created by: Blanca Suh on 12/05/2018 10:10 AM Electronically signed by: Leo Morris MD 12/05/2018 11:37 AM
--- NOTE | 2018-12-05 13:08 | CP.PCM.DIS ---
Provider - Provider Date of Admission: 11/26/18 21:58 Attending physician: Leo Morris MD Consults: 11/27/18 06:39 Infectious Disease Consult Stat Comment: Consulting Provider: Maurilio Fraire Consulting Physician: Maurilio Fraire Reason for Consult: uti 11/27/18 09:30 Social Work Referral Routine Comment: discharge planning Physician Instructions: Reason For Exam: discharge planning 11/28/18 11:22 Psychiatry Consult Routine Comment: Consulting Provider: Tricia Arriola Consulting Physician: Tricia Arriola Reason for Consult: agitation, violent behavior Time Spent in preparation of Discharge (in minutes): 30 Diagnosis - Discharge Diagnosis (1) Delirium due to general medical condition Status: Acute (2) Multiple sclerosis exacerbation Status: Chronic (3) UTI (urinary tract infection) Status: Acute (4) Seizure Status: Acute Priority: Low (5) Delirium due to another medical condition Status: Acute (6) Psychosis Status: Acute Hospital Course - Lab Results Lab Results: Micro Results 12/03/18 17:56 Urine Random Urine Culture - Final No Growth (<1,000 CFU/ML) 11/26/18 20:20 Blood Blood Culture - Final NO GROWTH AFTER 5 DAYS 11/26/18 20:20 Blood Gram Stain - Final TEST NOT PERFORMED 11/26/18 19:30 Blood Blood Culture - Final NO GROWTH AFTER 5 DAYS 11/26/18 19:30 Blood Gram Stain - Final TEST NOT PERFORMED 11/29/18 05:27 Urine,Clean Catch Urine Culture - Final Vancomycin Res E.faecalis Most Recent Lab Values WBC 7.9 K/uL (4.8-10.8) 12/01/18 20:30 RBC 4.70 Mil/uL (4.40-5.90) 12/01/18 20:30 Hgb 14.4 g/dL (12.0-18.0) 12/01/18 20:30 Hct 43.4 % (35.0-51.0) 12/01/18 20:30 MCV 92.3 fl (80.0-94.0) 12/01/18 20:30 MCH 30.6 pg (27.0-31.0) 12/01/18 20:30 MCHC 33.2 g/dL (33.0-37.0) 12/01/18 20:30 RDW 13.8 % (11.5-14.5) 12/01/18 20:30 Plt Count 301 K/uL (130-400) 12/01/18 20:30 MPV 7.5 fl (7.2-11.7) 11/28/18 05:35 Neut % (Auto) 57.7 % (50.0-75.0) 11/28/18 05:35 Lymph % (Auto) 25.2 % (20.0-40.0) 11/28/18 05:35 [place] % (Auto) 11.7 % (0.0-10.0) H 11/28/18 05:35 Eos % (Auto) 4.9 % (0.0-4.0) H 11/28/18 05:35 Baso % (Auto) 0.5 % (0.0-2.0) 11/28/18 05:35 Neut # (Auto) 6.4 K/uL (1.8-7.0) 11/28/18 05:35 Lymph # (Auto) 2.8 K/uL (1.0-4.3) 11/28/18 05:35 [place] # (Auto) 1.3 K/uL (0.0-0.8) H 11/28/18 05:35 Eos # (Auto) 0.5 K/uL (0.0-0.7) 11/28/18 05:35 Baso # (Auto) 0.1 K/uL (0.0-0.2) 11/28/18 05:35 Neutrophils % (Manual) 78 % (42-75) H 11/26/18 19:30 Band Neutrophils % 2 % (0-2) 11/26/18 19:30 Lymphocytes % (Manual) 11 % (20-50) L 11/26/18 19:30 Monocytes % (Manual) 8 % (0-10) 11/26/18 19:30 Eosinophils % (Manual) 1 % (0-7) 11/26/18 19:30 Platelet Estimate Normal (NORMAL) 11/26/18 19:30 PT 12.1 Seconds (9.8-13.1) 12/01/18 21:00 INR 1.1 12/01/18 21:00 APTT 36.4 Seconds (25.6-37.1) 12/01/18 21:00 Sodium 139 mmol/l (132-148) 12/01/18 13:07 Potassium 4.0 MMOL/L (3.6-5.0) 12/01/18 13:07 Chloride 102 mmol/L (98-107) 12/01/18 13:07 Carbon Dioxide 27 mmol/L (22-30) 12/01/18 13:07 Anion Gap 14 (10-20) 12/01/18 13:07 BUN 13 mg/dl (9-20) 12/01/18 13:07 Creatinine 0.5 mg/dl (0.8-1.5) L 12/01/18 13:07 Est GFR ( Amer) > 60 12/01/18 13:07 Est GFR (Non-Af Amer) > 60 12/01/18 13:07 POC Glucose (mg/dL) 122 mg/dL (65-110) H 11/26/18 20:22 Random Glucose 104 mg/dL (75-110) 12/01/18 13:07 Lactic Acid 1.7 mmol/L (0.7-2.1) 11/26/18 20:20 Calcium 9.2 mg/dL (8.4-10.2) 12/01/18 13:07 Phosphorus 3.1 mg/dl (2.5-4.5) 12/01/18 13:07 Magnesium 2.0 MG/DL (1.6-2.3) 12/01/18 13:07 Total Bilirubin 0.3 mg/dl (0.2-1.3) 12/01/18 13:07 AST 35 U/L (17-59) 12/01/18 13:07 ALT 38 U/L (21-72) 12/01/18 13:07 Alkaline Phosphatase 74 U/L (38-126) 12/01/18 13:07 Total Protein 7.4 G/DL (6.3-8.2) 12/01/18 13:07 Albumin 4.3 g/dL (3.5-5.0) 12/01/18 13:07 Globulin 3.2 gm/dL (2.2-3.9) 12/01/18 13:07 Albumin/Globulin Ratio 1.4 (1.0-2.1) 12/01/18 13:07 Prolactin 41.8 ng/mL (3.7-17.9) H 11/26/18 19:30 Urine Color Yellow (YELLOW) 12/03/18 12:07 Urine Clarity Clear (Clear) 12/03/18 12:07 Urine pH 5.0 (5.0-8.0) 12/03/18 12:07 Ur Specific [place] 1.027 (1.003-1.030) 12/03/18 12:07 Urine Protein Negative mg/dL (NEGATIVE) 12/03/18 12:07 Urine Glucose (UA) Neg mg/dL (NEGATIVE) 12/03/18 12:07 Urine Ketones Negative mg/dL (NEGATIVE) 12/03/18 12:07 Urine Blood Negative (NEGATIVE) 12/03/18 12:07 Urine Nitrate Negative (NEGATIVE) 12/03/18 12:07 Urine Bilirubin Negative (NEGATIVE) 12/03/18 12:07 Urine Urobilinogen 0.2-1.0 mg/dL (0.2-1.0) 12/03/18 12:07 Ur Leukocyte Esterase Neg [place]/uL (Negative) 12/03/18 12:07 Urine RBC (Auto) < 1 /hpf (0-3) 12/03/18 12:07 Urine Microscopic WBC 1 /hpf (0-5) 12/03/18 12:07 Ur Squamous Epith Cells 1 /hpf (0-5) 11/26/18 23:12 Lamotrigine 5.6 mcg/mL (4.0-18.0) 11/26/18 20:20 Influenza Typ A,B (EIA) Negative for flu a/b (NEGATIVE) 11/26/18 19:30 - Hospital Course Hospital Course: 53 yo male with past medical hx Dementia, Depression, Deep Vein Thrombosis, Kidney Stones, Multiple Sclerosis with severe neuro deficit paraplegia bedridden since 2008, Peripheral Edema , Pneumonia, Pulmonary Embolism , Chronic Kidney Disease, Seizures, recurrent UTI and sepsis presented in ER with seizure. A UA possible UTI. Patient has hx of status epileptic and sepsis with recurrent UTI and respiratory failure with several intervention of mechanical ventilation At present confuse. Started on empiric iv antibx rx well responded to rx today culture are negative, psychiatry controlled with med. Will dc home Discharge Exam - Head Exam Head Exam: NORMOCEPHALIC - Eye Exam Eye Exam: Normal appearance - ENT Exam ENT Exam: Mucous Membranes Dry - Neck Exam Neck exam: Full Rom - Respiratory Exam Respiratory Exam: Clear to PA & Lateral - Cardiovascular Exam Cardiovascular Exam: REGULAR RHYTHM, +S1, +S2 - GI/Abdominal Exam GI & Abdominal Exam: Normal Bowel Sounds - Extremities Exam Extremities exam: normal inspection - Neurological Exam Neurological exam: Altered - Psychiatric Exam Psychiatric exam: Flat Affect - Skin Skin Exam: Normal Color Discharge Plan - Follow Up Plan Condition: GUARDED Disposition: HOME/ ROUTINE
[2018-12-05 15:56] VITALS: BP 102/69; PULSE 91; RESP 18; TEMP 98.2; O2SAT 94
== END 2018-12-05 19:55 | disposition home health service (06) | DRG 59 ==
LOC: H.ER 18:55 → H.ERHOLD 21:58 → H.TEL 11-27 06:55
PROVIDERS: ADMIT Internal Medicine; ATTEND Internal Medicine
PROC: 02HV33Z Insertion of Infusion Device into Superior Vena Cava, Percutaneous Approach (ICD-10-PCS; principal; 2018-11-29)
DX: G35 Multiple sclerosis (principal); N39.0 Urinary tract infection, site not specified; F05 Delirium due to known physiological condition; G82.20 Paraplegia, unspecified; G40.409 Other generalized epilepsy and epileptic syndromes, not intractable, without status epilepticus; B95.2 Enterococcus as the cause of diseases classified elsewhere; Z16.21 Resistance to vancomycin; F03.90 Unspecified dementia, unspecified severity, without behavioral disturbance, psychotic disturbance, mood disturbance, and anxiety; E78.00 Pure hypercholesterolemia, unspecified; I12.9 Hypertensive chronic kidney disease with stage 1 through stage 4 chronic kidney disease, or unspecified chronic kidney disease; N18.9 Chronic kidney disease, unspecified; M06.9 Rheumatoid arthritis, unspecified; Z86.711 Personal history of pulmonary embolism; Z87.891 Personal history of nicotine dependence; Z88.0 Allergy status to penicillin; J44.9 Chronic obstructive pulmonary disease, unspecified; F41.9 Anxiety disorder, unspecified; F32.9 Major depressive disorder, single episode, unspecified; Z74.01 Bed confinement status; Z86.718 Personal history of other venous thrombosis and embolism; F06.8 Other specified mental disorders due to known physiological condition